=== PATIENT | male | born 1945 | race Caucasian/White ===

== ENCOUNTER 2016-11-13 20:31 | Inpatient (IN) | payer OTHER ==
--- NOTE | 2016-11-13 21:04 | PDOC ---
History of Present Illness - General History Source: Patient, Spouse, Primary Care Provider Exam Limitations: Other - History of Present Illness Initial Comments: 11/13/16 21:56 The patient is a 71-year-old male, with a significant past medical history of NIDDM, stents, hypertension, hyperlipidemia, and bladder stone removal, who was sent to the emergency department by his PCP, Dr. Reyes, due to increased forgetfulness for about a year. As per PCP, the patient is becoming more and more forgetful, is non-compliant with his diabetes medication, and thus she is concerned that he will not be able to readily take care of himself. As per , the patient had one episode of DKA about 3 months ago, and after being discharged has becoming increasingly forgetful. The PCP reports the patient lives at home with his , but the spends a portion of her day working. The patient reports s/p has bladder stone removal he had a catheter inserted. After catheter removal a week ago, the patient reports episodes of hematuria. The patient denies dysuria, frequency, and urgency. The patient denies nausea, vomiting, diarrhea, and constipation. The patient denies fever, chills, cough, headache, or dizziness. Allergies: Udlygrj-Vkz-CfN reductase inhibitor, lactose Past Surgical History: appendectomy, cholycystectomy, bladder stone removal Social History: Former smoker(quit 1995). Denies alcohol or drug use. PCP: Dr. Loni Reyes ([phone]) <Brenda Dyson - Last Filed: 11/13/16 23:58> <Elva Griffiths - Last Filed: 11/14/16 07:07> - General History Source: Patient <Han Miller - Last Filed: 11/19/16 19:48> - General Chief Complaint: Blood Transfusion Stated Complaint: DOCTOR REFFERED Time Seen by Provider: 11/13/16 21:03 Past History <Brenda Dyson - Last Filed: 11/13/16 23:58> <Elva Griffiths - Last Filed: 11/14/16 07:07> - Past Medical History Anemia: No Asthma: No Cancer: No Cardiac Disorders: Yes (atrial flutter) CVA: No COPD: No CHF: No Dementia: No Diabetes: Yes (niddm) GI Disorders: No Disorders: No HTN: Yes Hypercholesterolemia: Yes Liver Disease: No Seizures: No Thyroid Disease: No - Surgical History Abdominal Surgery: No Appendectomy: Yes Cardiac Surgery: Yes (2012) Cholecystectomy: (gallstones) Lung Surgery: No Neurologic Surgery: No Orthopedic Surgery: Yes - Psycho/Social/Smoking Cessation Hx Anxiety: No Suicidal Ideation: No Smoking Status: No Smoking History: Former smoker Have you smoked in the past 12 months: No Number of Cigarettes Smoked Daily: 4 If you are a former smoker, when did you quit?: 1995 Cigars Per Day: 1 Information on smoking cessation initiated: No 'Breaking Loose' booklet given: 11/01/16 Hx Alcohol Use: No Drug/Substance Use Hx: No Substance Use Type: None Hx Substance Use Treatment: No <Han Miller - Last Filed: 11/19/16 19:48> - Past Medical History Allergies/Adverse Reactions: Allergies Allergy/AdvReac Type Severity Reaction Status Date / Time Dcjpqri-Yfh-Fqj Reductase Allergy Unknown Verified 11/13/16 20:52 Inhibitor lactose AdvReac Verified 11/13/16 20:52 Home Medications: Ambulatory Orders Amlodipine Besylate [Norvasc -] 10 mg PO DAILY 12/20/15 Colesevelam HCl [Welchol] 625 mg PO TID 12/20/15 Tamsulosin HCl [Flomax -] 0.4 mg PO DAILY #10 capsule 06/01/16 Gemfibrozil [Lopid] 600 mg PO BID 10/14/16 Losartan Potassium [Cozaar -] 50 mg PO DAILY 10/14/16 Nitroglycerin [Nitrostat] 0.4 mg SL PRN PRN 10/14/16 Omeprazole 20 mg PO DAILY 10/14/16 Potassium Citrate [Potassium Citrate ER] 15 meq PO DAILY 10/14/16 Insulin (Levemir) [Levemir Vial] 14 units SQ ASDIR #0 10/24/16 Phytonadione [Mephyton] 5 mg PO DAILY #1 tablet 10/24/16 Insulin Sliding Scale [Novolog Vial Sliding Scale -] 1 vial SQ BIDAC units Isosorbide Mononitrate [Imdur -] 30 mg PO DAILY tab.sr.24h 11/01/16 Metoprolol Succinate [Toprol XL -] 50 mg PO DAILY #90 tab.sr.24h 11/01/16 Nitrofurantoin Macrocrystal [Macrodantin -] 50 mg PO Q6HPO #40 capsule 11/01/16 Ranolazine [Ranexa -] 500 mg PO BID tab 11/01/16 Review of Systems - Review of Systems Able to Perform ROS?: Yes Comments:: 11/13/16 21:57 CONSTITUTIONAL: Absent: fever, chills, diaphoresis, generalized weakness, malaise, loss of appetite HEENT: Absent: rhinorrhea, nasal congestion, throat pain, throat swelling, difficulty swallowing, mouth swelling, ear pain, eye pain, visual Changes CARDIOVASCULAR: Absent: chest pain, syncope, palpitations, irregular heart rate, lightheadedness , peripheral edema RESPIRATORY: Absent: cough, shortness of breath, dyspnea with exertion, orthopnea, wheezing, stridor, hemoptysis GASTROINTESTINAL: Absent: abdominal pain, abdominal distension, nausea, vomiting, diarrhea, constipation, melena, hematochezia GENITOURINARY: Present: hematuria Absent: dysuria, frequency, urgency, hesitancy, flank pain, genital pain MUSCULOSKELETAL: Absent: myalgia, arthralgia, joint swelling SKIN: Absent: rash, itching, pallor HEMATOLOGIC/IMMUNOLOGIC: Absent: easy bleeding, easy bruising, lymphadenopathy, frequent infections ENDOCRINE: Absent: unexplained weight gain, unexplained weight loss, heat intolerance, cold intolerance NEUROLOGIC: Absent: headache, focal weakness or paresthesias, dizziness, unsteady gait, seizure, mental status changes, bladder or bowel incontinence PSYCHIATRIC: Present: forgetfulness (early dementia) Absent: anxiety, depression, suicidal or homicidal ideation, hallucinations. <Brenda Dyson - Last Filed: 11/13/16 23:58> *Physical Exam - Vital Signs Last Vital Signs Temp Pulse Resp BP Pulse Ox 98.1 F 70 17 124/63 100 11/13/16 21:02 11/13/16 21:02 11/13/16 21:02 11/13/16 21:02 11/13/16 21:02 - Physical Exam Comments: 11/13/16 21:58 GENERAL: Well developed, well nourished. Awake and alert. No acute distress. HEENT: Normocephalic, atraumatic. PERRLA, EOMI. No conjunctival pallor. Sclera are non- icteric. Moist mucous membranes. Oropharynx is clear. NECK: Supple. Full ROM. No JVD. Carotid pulses 2+ and symmetric, without bruits. No thyromegaly. No lymphadenopathy. CARDIOVASCULAR: Regular rate and rhythm. No murmurs, rubs, or gallops. Distal pulses are 2+ and symmetric. PULMONARY: No evidence of respiratory distress. Lungs clear to auscultation bilaterally. No wheezing, rales or rhonchi. ABDOMINAL: Soft. Non-tender. Non-distended. No rebound or guarding. No organomegaly. Normoactive bowel sounds. MUSCULOSKELETAL Normal range of motion at all joints. No bony deformities or tenderness. No CVA tenderness. EXTREMITIES: No cyanosis. No clubbing. No edema. No calf tenderness. SKIN: Warm and dry. Normal capillary refill. No rashes. No jaundice. NEUROLOGICAL: Alert, awake, appropriate. Cranial nerves 2-12 intact. No deficits to light touch and temperature in face, upper extremities and lower extremities. No motor deficits in the in face, upper extremities and lower extremities. Normoreflexic in the upper and lower extremities. Normal speech. Toes are down- going bilaterally. Gait is normal without ataxia. PSYCHIATRIC: Cooperative. Good eye contact. Appropriate mood and affect. <Brenda Dyson - Last Filed: 11/13/16 23:58> - Vital Signs Last Vital Signs Temp Pulse Resp BP Pulse Ox 98.1 F 65 18 134/77 99 11/13/16 21:02 11/14/16 01:03 11/14/16 01:03 11/14/16 01:03 11/14/16 01:03 <Elva Griffiths - Last Filed: 11/14/16 07:07> - Vital Signs Last Vital Signs Temp Pulse Resp BP Pulse Ox 98.1 F 70 17 124/63 100 11/13/16 21:02 11/13/16 21:02 11/13/16 21:02 11/13/16 21:02 11/13/16 21:02 <Han Miller - Last Filed: 11/19/16 19:48> Heart Score/ECG Review - ECG Intrepretation Comment:: 11/14/16 07:07 EKG was reviewed by Dr. Miller at 7:05. Impression: Sinus bradycardia. ST & T wave abnormality, consider lateral ischemia. Vent. Rate: 58 bpm OK Interval: 148 ms QTc: 422 ms <Elva Griffiths - Last Filed: 11/14/16 07:07> ED Treatment Course - LABORATORY CBC & Chemistry Diagram: 11/13/16 21:59 11/13/16 21:59 - RADIOLOGY Radiograph Interpretation: 11/13/16 23:55 EXAM: CXR INTERPRETED BY: Dr. Gerber REVIEWED BY: Dr. Miller IMPRESSION: Suboptimal examination, without evidence of acute lung disease EXAM: Head CT INTERPRETED BY: Dr. Gerber REVIEWED BY: Dr. Miller IMPRESSION: Moderate atrophy and chronic microvascular ischemic changes. Bilateral periventricular old lacunar infarcts are present. Lucency/ encephalomalacia in the left cerebellum, inferiorly/posteriorly. Correlate clinically to determine further evaluation and follow-up. <Brenda Dyson - Last Filed: 11/13/16 23:58> - LABORATORY CBC & Chemistry Diagram: 11/14/16 06:20 11/14/16 06:20 - ADDITIONAL ORDERS Additional order review: Laboratory Results 11/13/16 11/13/16 11/13/16 21:59 21:59 21:59 INR Sodium 140 Potassium 4.0 Chloride 108 H Carbon Dioxide 23 Anion Gap 9 BUN 30 H D Creatinine 1.5 H D Creat Clearance w eGFR 46.00 Random Glucose 194 H Lactic Acid 1.623 Calcium 8.9 Total Bilirubin 0.2 AST 9 L ALT 13 Alkaline Phosphatase 125 H Creatine Kinase 49 Troponin I 0.12 H D Total Protein 7.0 Albumin 3.0 L Acetone, Qual Negative Blood Type Antibody Screen 11/13/16 11/13/16 21:59 21:59 INR 1.32 H Sodium Potassium Chloride Carbon Dioxide Anion Gap BUN Creatinine Creat Clearance w eGFR Random Glucose Lactic Acid Calcium Total Bilirubin AST ALT Alkaline Phosphatase Creatine Kinase Troponin I Total Protein Albumin Acetone, Qual Blood Type O POSITIVE Antibody Screen Negative 11/13/16 21:59 RBC 3.33 L MCV 88.6 MCHC 32.4 RDW 13.9 MPV 8.3 Neutrophils % 41.9 L D Lymphocytes % 38.5 D Monocytes % 8.4 Eosinophils % 10.6 H Basophils % 0.6 <Elva Griffiths - Last Filed: 11/14/16 07:07> - LABORATORY CBC & Chemistry Diagram: 11/18/16 06:20 11/19/16 15:00 <Han Miller - Last Filed: 11/19/16 19:48> Medical Decision Making - Medical Decision Making 11/13/16 21:32 First call placed to Dr. Reyes at 21:28, and case was discussed. <Brenda Dyson - Last Filed: 11/13/16 23:58> - Medical Decision Making 11/19/16 19:48 1DrPapi Miller: The scribe's documentation has been prepared under my direction and personally reviewed by me in its entirery. I confirm that the note above accurately reflects all work, treatment, procedures, and medical decision making performed by me. <Han Miller - Last Filed: 11/19/16 19:48> *DC/Admit/Observation/Transfer - Attestations Scribe Attestion: 11/13/16 21:33 Documentation prepared by Brenda Dyson, acting as forensic medical examiner for Han Miller DO. <Brenda Dyson - Last Filed: 11/13/16 23:58> <Elva Griffiths - Last Filed: 11/14/16 07:07> - Discharge Dispostion Admit: Yes <Han Miller - Last Filed: 11/19/16 19:48> Diagnosis at time of Disposition: Confused CAD (coronary artery disease) Qualifiers: Coronary Disease-Associated Artery/Lesion type: unspecified vessel or lesion type Hyperlipidemia Qualifiers: Hyperlipidemia type: other hyperlipidemia Qualified Code(s): E78.4 - Other hyperlipidemia - Referrals
[2016-11-13 22:28] LABS: BASOPHIL 0.6 % (0-2.0); EOSINOPHIL 10.6 % (0-4.5); MCH 28.7 pg (25.7-33.7); MCHC 32.4 g/dl (32.0-35.9); MEAN CELL VOLUME 88.6 fl (80-96); MEAN PLT VOLUME 8.3 fl (7.5-11.1); NEUTROPHILS 41.9 % (42.8-82.8); PLATELET COUNT 400 K/MM3 (134-434); RDW 13.9 % (11.9-15.9); WHITE BLOOD COUNT 8.3 K/mm3 (4.0-10.0)
[2016-11-13 23:00] LABS: INR 1.32 (0.82-1.09); PROTHROMBIN TIME (PATIENT) 14.6 SEC (9.98-11.88)
[2016-11-13 23:03] LABS: BILIRUBIN,TOTAL 0.2 mg/dL (0.2-1.0); CALCIUM 8.9 mg/dL (8.5-10.1); CREATININE 1.5 mg/dL (0.7-1.3)
[2016-11-13 23:06] LABS: TROPONIN I 0.12 ng/ml (0.00-0.05)
[2016-11-14] MEDS ORDERED: PATIENT'S OWN MEDICATION (NON-FORMULARY) (Colesevelam Hcl [Welchol] 625 MG) PO SCH (06:00)
[2016-11-14] MEDS ORDERED: INSULIN REGULAR HUMAN 100 UNITS/ML *VIAL ONE (06:31)
[2016-11-14 06:32] LABS: BASOPHIL 0.8 % (0-2.0); EOSINOPHIL 13.5 % (0-4.5); MCH 28.6 pg (25.7-33.7); MCHC 32.1 g/dl (32.0-35.9); MEAN CELL VOLUME 89.2 fl (80-96); MEAN PLT VOLUME 8.7 fl (7.5-11.1); NEUTROPHILS 34.3 % (42.8-82.8); PH,URINE 6.5 (5.0-8.0); PLATELET COUNT 429 K/MM3 (134-434); URINE APPEARANCE CLOUDY; URINE BILIRUBIN 2+ (NEGATIVE); URINE COLOR DK. RED; URINE GLUCOSE (UA) 3+ (NEGATIVE); URINE KETONE TRACE (NEGATIVE); URINE UROBILINOGEN 2.0 E.U/dl E.U./dl (0.2-1.0); WHITE BLOOD COUNT 8.4 K/mm3 (4.0-10.0)
[2016-11-14 06:56] LABS: ALBUMIN 3.1 g/dl (3.4-5.0); BILIRUBIN,TOTAL 0.2 mg/dL (0.2-1.0); CALCIUM 8.9 mg/dL (8.5-10.1); CREATININE 1.4 mg/dL (0.7-1.3)
[2016-11-14] MEDS ORDERED: INSULIN SLIDING SCALE (NOVOLOG) 1 VIAL SQ SCH (07:00)
[2016-11-14 07:02] LABS: TROPONIN I 0.13 ng/ml (0.00-0.05)
--- NOTE | 2016-11-14 08:52 | HP ---
Admitting History and Physical - Admission Chief Complaint: sent in by pcp History of Present Illness: The patient is a 71-year-old male, with a significant past medical history of NIDDM, stents, hypertension, hyperlipidemia, and bladder stone removal, who was sent to the emergency department by his PCP, Dr. Reyes, due to increased forgetfulness for about a year. As per PCP, the patient is becoming more and more forgetful, is non-compliant with his diabetes medication, and thus she is concerned that he will not be able to readily take care of himself. As per , the patient had one episode of DKA about 3 months ago, and after being discharged has becoming increasingly forgetful. The PCP reports the patient lives at home with his , but the spends a portion of her day working. The patient reports s/p has bladder stone removal he had a catheter inserted. After catheter removal a week ago, the patient reports episodes of hematuria. The patient denies dysuria, frequency, and urgency. The patient denies nausea, vomiting, diarrhea, and constipation. The patient denies fever, chills, cough, headache, or dizziness. Allergies: Yhnlvpi-Uda-DdS reductase inhibitor, lactose Past Surgical History: appendectomy, cholycystectomy, bladder stone removal Social History: Former smoker(quit 1995). Denies alcohol or drug use. PCP: Dr. Loni Reyes ([phone]) per patient he feels fine and says doctor sent him bc his blood count was low. History Source: Patient, Medical Record - Past Medical History Cardiovascular: Yes: AFIB (not on AC), CAD (with stent), HTN, Hyperlipdemia Pulmonary: Yes: Sleep Apnea Hepatobiliary: Yes: Cholelithiasis Renal/: Yes: BPH, Renal Calculi Endocrine: Yes: Diabetes Mellitus - Past Surgical History Past Surgical History: Yes: Appendectomy, Joint Replacement (Hip surgery for fracture right femur, ORIF right ankle, hip replacement) - Smoking History Smoking history: Former smoker Have you smoked in the past 12 months: No Aproximately how many cigarettes per day: 4 If you are a former smoker, when did you quit?: 1995 - Alcohol/Substance Use Hx Alcohol Use: No - Social History ADL: Independent Home Medications - Allergies Allergies/Adverse Reactions: Allergies Allergy/AdvReac Type Severity Reaction Status Date / Time Ooimhlo-Gkq-Jxp Reductase Allergy Unknown Verified 11/13/16 20:52 Inhibitor lactose AdvReac Verified 11/13/16 20:52 - Home Medications Home Medications: Ambulatory Orders Amlodipine Besylate [Norvasc -] 10 mg PO DAILY 12/20/15 Colesevelam HCl [Welchol] 625 mg PO TID 12/20/15 Tamsulosin HCl [Flomax -] 0.4 mg PO DAILY #10 capsule 06/01/16 Gemfibrozil [Lopid] 600 mg PO BID 10/14/16 Losartan Potassium [Cozaar -] 50 mg PO DAILY 10/14/16 Nitroglycerin [Nitrostat] 0.4 mg SL PRN PRN 10/14/16 Omeprazole 20 mg PO DAILY 10/14/16 Potassium Citrate [Potassium Citrate ER] 15 meq PO DAILY 10/14/16 Insulin (Levemir) [Levemir Vial] 14 units SQ ASDIR #0 10/24/16 Phytonadione [Mephyton] 5 mg PO DAILY #1 tablet 10/24/16 Insulin Sliding Scale [Novolog Vial Sliding Scale -] 1 vial SQ BIDAC units Isosorbide Mononitrate [Imdur -] 30 mg PO DAILY tab.sr.24h 11/01/16 Metoprolol Succinate [Toprol XL -] 50 mg PO DAILY #90 tab.sr.24h 11/01/16 Nitrofurantoin Macrocrystal [Macrodantin -] 50 mg PO Q6HPO #40 capsule 11/01/16 Ranolazine [Ranexa -] 500 mg PO BID tab 11/01/16 Family Disease History - Family Disease History Family Disease History: Diabetes: Grandparent Review of Systems - Review of Systems Constitutional: reports: No Symptoms Eyes: reports: No Symptoms HENT: reports: Nasal Congestion Neck: reports: No Symptoms Cardiovascular: reports: No Symptoms Respiratory: reports: Cough Gastrointestinal: reports: No Symptoms Physical Examination Vital Signs: Vital Signs Temperature 98.1 F 11/13/16 21:02 Pulse Rate 65 11/14/16 01:03 Respiratory Rate 18 11/14/16 01:03 Blood Pressure 134/77 11/14/16 01:03 O2 Sat by Pulse Oximetry (%) 99 11/14/16 01:03 Constitutional: Yes: Calm Neck: Yes: Trachea Midline Cardiovascular: Yes: Regular Rate and Rhythm, S1, S2 Respiratory: Yes: CTA Bilaterally Gastrointestinal: Yes: Normal Bowel Sounds, Soft Edema: No Neurological: Yes: Alert, Oriented Labs: CBC, BMP 11/14/16 06:20 11/14/16 06:20 Imaging - Results Chest X-ray: Report Reviewed Cat Scan: Report Reviewed Problem List - Problems (1) Hyperlipidemia Assessment/Plan: cotnie current meds Code(s): E78.5 - HYPERLIPIDEMIA, UNSPECIFIED Qualifiers: Hyperlipidemia type: other hyperlipidemia Qualified Code(s): E78.4 - Other hyperlipidemia (2) ARF (acute renal failure) Assessment/Plan: hydration encourage po fluid intake Code(s): N17.9 - ACUTE KIDNEY FAILURE, UNSPECIFIED Qualifiers: Acute renal failure type: unspecified Qualified Code(s): N17.9 - Acute kidney failure, unspecified (3) 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 Assessment/Plan: slididng scale V[facility] services need set up for help with Dm medication at home Code(s): E11.9 - TYPE 2 DIABETES MELLITUS WITHOUT COMPLICATIONS Qualifiers: 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 type: type 2 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 complication status: without complication 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 oysterman insulin use: without retirement use Qualified Code(s): E11.9 - Type 2 diabetes mellitus without complications (4) UTI (urinary tract infection) Assessment/Plan: nitrofurantoin Code(s): N39.0 - URINARY TRACT INFECTION, SITE NOT SPECIFIED (5) Forgetfulness Assessment/Plan: MRI neuro eval appreicated outpatient FU pedning MRI result Code(s): R68.89 - OTHER GENERAL SYMPTOMS AND SIGNS (6) CAD (coronary artery disease) Assessment/Plan: continue cardiac meds Code(s): I25.10 - ATHSCL HEART DISEASE OF [place] DEE-NI' CORONARY ARTERY W/O ANG PCTRS Qualifiers: Coronary Disease-Associated Artery/Lesion type: unspecified vessel or lesion type
[2016-11-14] MEDS: RANOLAZINE E.R. 500 MG TABLET (FP) PO SCH ×2 (09:31→22:35)
[2016-11-14] MEDS: PANTOPRAZOLE 20 MG TABLET (FP) PO SCH (09:31)
[2016-11-14] MEDS: METOPROLOL SUCCINATE 50 MG TAB.SR.24H (FP) PO SCH (09:31)
[2016-11-14] MEDS: LOSARTAN POTASSIUM 50 MG TABLET (FP) PO SCH (09:31)
[2016-11-14] MEDS: amLODIPine BESYLATE 10 MG TABLET (FP) PO SCH (09:31)
[2016-11-14] MEDS: TAMSULOSIN HCL 0.4 MG CAP.ER.24H (FP) PO SCH (09:31)
[2016-11-14] MEDS: ISOSORBIDE MONONITRATE 30 MG TAB.SR.24H (FP) PO SCH (09:31)
[2016-11-14 09:41] LABS: URINE BLOOD 3+ (NEGATIVE); URINE LEUK ESTERASE 2+ (NEGATIVE); URINE NITRITE POSITIVE (NEGATIVE); URINE PROTEIN 3+ (NEGATIVE)
[2016-11-14 09:43] LABS: URINE RBC >100 /hpf (0-3)
--- NOTE | 2016-11-14 10:54 | EKG ---
Test Reason : Blood Pressure : / mmHG Vent. Rate : 058 BPM Atrial Rate : 058 BPM P-R Int : 148 ms QRS Dur : 100 ms QT Int : 430 ms P-R-T Axes : 061 037 098 degrees QTc Int : 422 ms SINUS BRADYCARDIA ABNORMAL ECG T WAVE INVERSION NOW EVIDENT IN LATERAL LEADS Confirmed by MARIIA RICE MD ([id number]) on 11/14/2016 10:53:52 AM Referred By: Confirmed By:MARIIA RICE MD
--- NOTE | 2016-11-14 10:54 | CONSULT ---
Consult - text type - Consultation Consultation Note: Neurology The patient is a 71-year-old male, with a significant past medical history of NIDDM, stents, hypertension, hyperlipidemia, and bladder stone removal, who was sent to the emergency department by his PCP, Dr. Reyes, due to increased forgetfulness for about a year. As per notes, the patient is becoming more and more forgetful, is non-compliant with his diabetes medication, and thus concern he will not be able to readily take care of himself. As per , the patient had one episode of DKA about 3 months ago, and after being discharged has becoming increasingly forgetful. The PCP reports the patient lives at home with his , but the spends a portion of her day working. The patient reports s/p has bladder stone removal he had a catheter inserted. After catheter removal a week ago, the patient reports episodes of hematuria. The patient denies dysuria, frequency, and urgency. The patient denies nausea, vomiting, diarrhea, and constipation. The patient denies fever, chills, cough, headache, or dizziness. In speaking with the patient in ER, he believes the reports have been exaggerated and he feels he is managing to take care of himself. He was aware that is in the hospital and can tell me name of hospital. Past History - Past Medical History Anemia: No Asthma: No Cancer: No Cardiac Disorders: Yes (atrial flutter) CVA: No COPD: No CHF: No Dementia: No Diabetes: Yes (niddm) GI Disorders: No Disorders: No HTN: Yes Hypercholesterolemia: Yes Liver Disease: No Seizures: No Thyroid Disease: No - Surgical History Abdominal Surgery: No Appendectomy: Yes Cardiac Surgery: Yes (2012) Cholecystectomy: (gallstones) Lung Surgery: No Neurologic Surgery: No Orthopedic Surgery: Yes - Psycho/Social/Smoking Cessation Hx Anxiety: No Suicidal Ideation: No Smoking Status: No Smoking History: Former smoker Have you smoked in the past 12 months: No Number of Cigarettes Smoked Daily: 4 If you are a former smoker, when did you quit?: 1996 Cigars Per Day: 1 Information on smoking cessation initiated: No 'Breaking Loose' booklet given: 11/01/16 Hx Alcohol Use: No Drug/Substance Use Hx: No Substance Use Type: None Hx Substance Use Treatment: No - Past Medical History Allergies/Adverse Reactions: Allergies Allergy/AdvReac Type Severity Reaction Status Date / Time [id number] Reductase Allergy Unknown Verified 11/13/16 20:52 Inhibitor lactose AdvReac Verified 11/13/16 20:52 Home Medications: Ambulatory Orders Amlodipine Besylate [Norvasc -] 10 mg PO DAILY 12/20/15 Colesevelam HCl [Welchol] 625 mg PO TID 12/20/15 Tamsulosin HCl [Flomax -] 0.4 mg PO DAILY #10 capsule 06/01/16 Gemfibrozil [Lopid] 600 mg PO BID 10/14/16 Losartan Potassium [Cozaar -] 50 mg PO DAILY 10/14/16 Nitroglycerin [Nitrostat] 0.4 mg SL PRN PRN 10/14/16 Omeprazole 20 mg PO DAILY 10/14/16 Potassium Citrate [Potassium Citrate ER] 15 meq PO DAILY 10/14/16 Insulin (Levemir) [Levemir Vial] 14 units SQ ASDIR #0 10/24/16 Phytonadione [Mephyton] 5 mg PO DAILY #1 tablet 10/24/16 Insulin Sliding Scale [Novolog Vial Sliding Scale -] 1 vial SQ BIDAC units Isosorbide Mononitrate [Imdur -] 30 mg PO DAILY tab.sr.24h 11/01/16 Metoprolol Succinate [Toprol XL -] 50 mg PO DAILY #90 tab.sr.24h 11/01/16 Nitrofurantoin Macrocrystal [Macrodantin -] 50 mg PO Q6HPO #40 capsule 11/01/16 Ranolazine [Ranexa -] 500 mg PO BID tab 11/01/16 Review of Systems CONSTITUTIONAL: Absent: fever, chills, diaphoresis, generalized weakness, malaise, loss of appetite HEENT: Absent: rhinorrhea, nasal congestion, throat pain, throat swelling, difficulty swallowing, mouth swelling, ear pain, eye pain, visual Changes CARDIOVASCULAR: Absent: chest pain, syncope, palpitations, irregular heart rate, lightheadedness , peripheral edema RESPIRATORY: Absent: cough, shortness of breath, dyspnea with exertion, orthopnea, wheezing, stridor, hemoptysis GASTROINTESTINAL: Absent: abdominal pain, abdominal distension, nausea, vomiting, diarrhea, constipation, melena, hematochezia GENITOURINARY: Present: hematuria Absent: dysuria, frequency, urgency, hesitancy, flank pain, genital pain MUSCULOSKELETAL: Absent: myalgia, arthralgia, joint swelling SKIN: Absent: rash, itching, pallor HEMATOLOGIC/IMMUNOLOGIC: Absent: easy bleeding, easy bruising, lymphadenopathy, frequent infections ENDOCRINE: Absent: unexplained weight gain, unexplained weight loss, heat intolerance, cold intolerance NEUROLOGIC: Absent: headache, focal weakness or paresthesias, dizziness, unsteady gait, seizure, mental status changes, bladder or bowel incontinence PSYCHIATRIC: Present: forgetfulness (early dementia) Absent: anxiety, depression, suicidal or homicidal ideation, hallucinations. Last Vital Signs Temp Pulse Resp BP Pulse Ox 98.1 F 70 17 124/63 100 11/13/16 21:02 11/13/16 21:02 11/13/16 21:02 11/13/16 21:02 11/13/16 21:02 GENERAL: Well developed, well nourished. Awake and alert. No acute distress. HEENT: Normocephalic, atraumatic. PERRLA, EOMI. No conjunctival pallor. Sclera are non- icteric. Moist mucous membranes. Oropharynx is clear. NECK: Supple. Full ROM. No JVD. Carotid pulses 2+ and symmetric, without bruits. No thyromegaly. No lymphadenopathy. CARDIOVASCULAR: Regular rate and rhythm. No murmurs, rubs, or gallops. Distal pulses are 2+ and symmetric. PULMONARY: No evidence of respiratory distress. Lungs clear to auscultation bilaterally. No wheezing, rales or rhonchi. ABDOMINAL: Soft. Non-tender. Non-distended. No rebound or guarding. No organomegaly. Normoactive bowel sounds. MUSCULOSKELETAL Normal range of motion at all joints. No bony deformities or tenderness. No CVA tenderness. EXTREMITIES: No cyanosis. No clubbing. No edema. No calf tenderness. SKIN: Warm and dry. Normal capillary refill. No rashes. No jaundice. NEUROLOGICAL: Alert, awake, appropriate. Cranial nerves 2-12 intact. No deficits to light touch and temperature in face, upper extremities and lower extremities. No motor deficits in the in face, upper extremities and lower extremities. Normoreflexic in the upper and lower extremities. Normal speech. Toes are down- going bilaterally. Gait is normal without ataxia. PSYCHIATRIC: Cooperative. Good eye contact. Appropriate mood and affect. CBCD WBC 8.4 K/mm3 (4.0-10.0) 11/14/16 06:20 RBC 3.46 M/mm3 (4.00-5.60) L 11/14/16 06:20 Hgb 9.9 GM/dL (11.7-16.9) L 11/14/16 06:20 Hct 30.9 % (35.4-49) L 11/14/16 06:20 MCV 89.2 fl (80-96) 11/14/16 06:20 MCHC 32.1 g/dl (32.0-35.9) 11/14/16 06:20 RDW 14.0 % (11.9-15.9) 11/14/16 06:20 Plt Count 429 K/MM3 (134-434) 11/14/16 06:20 MPV 8.7 fl (7.5-11.1) 11/14/16 06:20 CMP Sodium 138 mmol/L (136-145) 11/14/16 06:20 Potassium 3.9 mmol/L (3.5-5.1) 11/14/16 06:20 Chloride 105 mmol/L (98-107) 11/14/16 06:20 Carbon Dioxide 22 mmol/L (21-32) 11/14/16 06:20 Anion Gap 11 (8-16) 11/14/16 06:20 BUN 27 mg/dL (7-18) H 11/14/16 06:20 Creatinine 1.4 mg/dL (0.7-1.3) H 11/14/16 06:20 Creat Clearance w eGFR 49.82 (>60) 11/14/16 06:20 Calcium 8.9 mg/dL (8.5-10.1) 11/14/16 06:20 Total Bilirubin 0.2 mg/dL (0.2-1.0) 11/14/16 06:20 AST 8 U/L (15-37) L 11/14/16 06:20 ALT 11 U/L (12-78) L 11/14/16 06:20 Alkaline Phosphatase 120 U/L (45-117) H 11/14/16 06:20 Total Protein 7.0 g/dl (6.4-8.2) 11/14/16 06:20 Albumin 3.1 g/dl (3.4-5.0) L 11/14/16 06:20 - RADIOLOGY EXAM: CXR INTERPRETED BY: Dr. Gerber REVIEWED BY: Dr. Miller IMPRESSION: Suboptimal examination, without evidence of acute lung disease EXAM: Head CT INTERPRETED BY: Dr. Gerber REVIEWED BY: Dr. Miller IMPRESSION: Moderate atrophy and chronic microvascular ischemic changes. Bilateral periventricular old lacunar infarcts are present. Lucency/ encephalomalacia in the left cerebellum, inferiorly/posteriorly. Correlate clinically to determine further evaluation and follow-up. Plan: 71-year-old male, with a significant past medical history of NIDDM, stents, hypertension, hyperlipidemia, and bladder stone removal, who was sent to the emergency department by his PCP, Dr. Reyes, due to increased forgetfulness for about a year. He believes the reports have been exaggerated and he feels he is managing to take care of himself. He was aware that is in the hospital and can tell me name of hospital. Ct head without acute changes Check B12, Folate, RPR MRI brain ordered for further evaluation There is outpatient memory evaluation I would like him to complete in office which can quantify memory, executive function, and attention Would not start medication at this time but depending on formal memory results, I would consider memory aid Blood pressure control, continue Losartan, Amlodipine, Metoprolol Goal bp <140/90 chronically Continue Isulin, goal HgA1C < 6.0 Social work consult for possible home services if needed ([facility]NS, home health aid?) Fall precautions
[2016-11-14] MEDS ORDERED: INSULIN (NOVOLOG) ASPART 100 UNITS/ML 10ML VIAL ONE ×3 (12:51→22:34)
[2016-11-14 12:54] LABS: TROPONIN I 0.13 ng/ml (0.00-0.05)
[2016-11-14] MEDS: INSULIN SLIDING SCALE (NOVOLOG) 1 VIAL SQ SCH ×3 (13:00→22:35)
[2016-11-14] MEDS ORDERED: SODIUM CHLORIDE 1,000 ML IV SCH (13:45)
[2016-11-14 14:27] VITALS: BMI 30.2
--- NOTE | 2016-11-14 14:41 | CONSULT ---
Consult - text type - Consultation Consultation Note: Renal Consult for Acute on Chronic Renal insuffiency and hematuria This is a 71 year old Gentleman with PMhx of CAD s/p recent NSTEMI, DM Type 2, Hypertension, Hyperlipidemia, Nephrolithiasis (uric acid stones), BPH presents with complaints of hematuria and lower abd pain + increasing forgetfullness and found to have Cr of 1.4. Pt s/p recent open cystoscopy for bladder stone extraction. Pt is followed by Dr. Winters. Pt reports continues hematuria since the procedure. He had an obstructed coughlin that required admission a few weeks ago. No aspirin or A/c use. No NSAID use. No contast exposure. Pt reports good urine output. No flank pain. No fever or chills. No sob or chest pain. No N /V. + diarrhea (watery 3x daily). PMhx: as above Allergies: NKDA Family hx: NC Social Hx: No T/A/D ROS: as per HPI Home Meds: Medication Instructions Recorded Amlodipine Besylate [Norvasc -] 10 mg PO DAILY 12/20/15 Colesevelam HCl [Welchol] 625 mg PO TID 12/20/15 Tamsulosin HCl [Flomax -] 0.4 mg PO DAILY #10 capsule 06/01/16 Gemfibrozil [Lopid] 600 mg PO BID 10/14/16 Losartan Potassium [Cozaar -] 50 mg PO DAILY 10/14/16 Nitroglycerin [Nitrostat] 0.4 mg SL PRN PRN 10/14/16 Omeprazole 20 mg PO DAILY 10/14/16 Potassium Citrate [Potassium 15 meq PO DAILY 10/14/16 Citrate ER] Insulin (Levemir) [Levemir Vial] 14 units SQ ASDIR #0 10/24/16 Phytonadione [Mephyton] 5 mg PO DAILY #1 tablet 10/24/16 Insulin Sliding Scale [Novolog 1 vial SQ BIDAC units 11/01/16 Vial Sliding Scale -] Isosorbide Mononitrate [Imdur -] 30 mg PO DAILY tab.sr.24h 11/01/16 Metoprolol Succinate [Toprol XL -] 50 mg PO DAILY #90 tab.sr.24h 11/01/16 Nitrofurantoin Macrocrystal 50 mg PO Q6HPO #40 capsule 11/01/16 [Macrodantin -] Ranolazine [Ranexa -] 500 mg PO BID tab 11/01/16 Vital Signs Temperature 97.4 F L 11/14/16 14:12 Pulse Rate 64 11/14/16 14:12 Respiratory Rate 16 11/14/16 14:12 Blood Pressure 116/53 11/14/16 14:12 O2 Sat by Pulse Oximetry (%) 97 11/14/16 14:12 Gen: NAD, awake and alert HEENT: NC/AT, MMM, No JVD CVS: RRR, No M/R Lungs: CTA, no rales or wheeze Abd: soft NT/ND No rebound or guarding. well healed scan seen on bladder. NO bladder distension Ext: No edema, clubbing or cyanosis Neuro: AAOx3, no focal defects CBC, BMP 11/14/16 06:20 11/14/16 06:20 Laboratory Tests 11/14/16 06:20 Random Glucose 224 H Calcium 8.9 Albumin 3.1 L Current Medications Amlodipine Besylate (Norvasc -) 10 mg PO DAILY [facility] Last Admin: 11/14/16 09:31 Dose: 10 mg Gemfibrozil (Lopid -) 600 mg PO BID@0700,1630 [facility] Sodium Chloride (Normal Saline -) 1,000 mls @ 75 mls/hr IV ASDIR [facility] Stop: 11/15/16 01:44 Influenza Virus Vaccine (Fluvirin) 45 mcg IM .ONCE ONE Stop: 11/14/16 14:27 Insulin Aspart (Novolog Vial Sliding Scale -) 1 vial SQ ACHS [facility] PRN Reason: Protocol Last Admin: 11/14/16 13:00 Dose: 4 units Isosorbide Mononitrate (Imdur -) 30 mg PO DAILY [facility] Last Admin: 11/14/16 09:31 Dose: 30 mg Losartan Potassium (Cozaar -) 50 mg PO DAILY [facility] Last Admin: 11/14/16 09:31 Dose: 50 mg Metoprolol Succinate (Toprol Xl -) 50 mg PO DAILY [facility] Last Admin: 11/14/16 09:31 Dose: 50 mg Nitrofurantoin Macrocrystals (Macrodantin -) 50 mg PO Q6HPO [facility] Nitroglycerin (Nitrostat -) 0.4 mg SL PRN PRN PRN Reason: FOR CHEST PAIN Non-Formulary Medication (Colesevelam Hcl [Welchol]) 625 mg PO TID [facility] Last Admin: 11/14/16 06:16 Dose: Not Given Pantoprazole Sodium (Protonix -) 20 mg PO DAILY [facility] Last Admin: 11/14/16 09:31 Dose: 20 mg Pneumococcal 13-Valent Conj Vacc (Prevnar 13 Syringe -) 0.5 ml IM .ONCE ONE Stop: 11/14/16 14:27 Ranolazine (Ranexa -) 500 mg PO BID [facility] Last Admin: 11/14/16 09:31 Dose: 500 mg Tamsulosin HCl (Flomax -) 0.4 mg PO DAILY@0830 [facility] Last Admin: 11/14/16 09:31 Dose: 0.4 mg A/P 71 year old Gentleman with PMhx of CAD s/p recent NSTEMI, DM Type 2, Hypertension, Hyperlipidemia, Nephrolithiasis (uric acid stones), BPH presents with complaints of hematuria and lower abd pain + increasing forgetfullness and found to have Cr of 1.4. 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
[2016-11-14] MEDS ORDERED: INFLUENZA VACCINE 45 MCG/0.5 ML (MDV 16-17) IM ONE (16:00)
[2016-11-14] MEDS: GEMFIBROZIL 600 MG TABLET (FP) PO SCH (17:03)
--- NOTE | 2016-11-14 17:12 | CONSULT ---
Consult Consult Specialty:: Cardiology Reason for Consultation:: Troponin elevation - History of Present Illness Chief Complaint: Progressive dementia History of Present Illness: 70 y/o man with multiple medical problems including CAD s/p stent, angina pectoris, DM (on insulin), HTN, cholelithiasis, nephrolithiasis, afib, s/p cysto /open cystotomy for BPH and bladder stone presents with continued hematuria, increasing forgetfulness, PMD concerned of inability to care for himself, he experienced obstructed coughlin requiring admission few weeks ago, denies chest pain, dyspnea, near or true syncope, palpitations, orthopnea, dysuria, frequency , urgency, PND or LE edema. - History Source History Provided By: Patient, Medical Record Limitations to Obtaining History: Dementia - Past Medical History Cardio/Vascular: Yes: AFIB (not on AC), CAD (with stent), HTN, Hyperlipdemia Pulmonary: Yes: Sleep Apnea Hepatobiliary: Yes: Cholelithiasis Renal/: Yes: BPH, Renal Calculi Endocrine: Yes: Diabetes Mellitus - Past Surgical History Past Surgical History: Yes: Appendectomy, Joint Replacement (Hip surgery for fracture right femur, ORIF right ankle, hip replacement) - Alcohol/Substance Use Hx Alcohol Use: No - Smoking History Smoking history: Former smoker Have you smoked in the past 12 months: No Aproximately how many cigarettes per day: 4 If you are a former smoker, when did you quit?: 1995 - Social History Usual Living Arrangement: With Spouse ADL: Independent Home Medications - Allergies Allergies/Adverse Reactions: Allergies Allergy/AdvReac Type Severity Reaction Status Date / Time Pxfufwr-Dev-[id number] Reductase Allergy Unknown Verified 11/13/16 20:52 Inhibitor lactose AdvReac Verified 11/13/16 20:52 - Home Medications Home Medications: Ambulatory Orders Amlodipine Besylate [Norvasc -] 10 mg PO DAILY 12/20/15 Colesevelam HCl [Welchol] 625 mg PO TID 12/20/15 Tamsulosin HCl [Flomax -] 0.4 mg PO DAILY #10 capsule 06/01/16 Gemfibrozil [Lopid] 600 mg PO BID 10/14/16 Losartan Potassium [Cozaar -] 50 mg PO DAILY 10/14/16 Nitroglycerin [Nitrostat] 0.4 mg SL PRN PRN 10/14/16 Omeprazole 20 mg PO DAILY 10/14/16 Potassium Citrate [Potassium Citrate ER] 15 meq PO DAILY 10/14/16 Insulin (Levemir) [Levemir Vial] 14 units SQ ASDIR #0 10/24/16 Phytonadione [Mephyton] 5 mg PO DAILY #1 tablet 10/24/16 Insulin Sliding Scale [Novolog Vial Sliding Scale -] 1 vial SQ BIDAC units Isosorbide Mononitrate [Imdur -] 30 mg PO DAILY tab.sr.24h 11/01/16 Metoprolol Succinate [Toprol XL -] 50 mg PO DAILY #90 tab.sr.24h 11/01/16 Nitrofurantoin Macrocrystal [Macrodantin -] 50 mg PO Q6HPO #40 capsule 11/01/16 Ranolazine [Ranexa -] 500 mg PO BID tab 11/01/16 Family Disease History - Family Disease History Family Disease History: Diabetes: Grandparent Review of Systems - Review of Systems Genitourinary: reports: Hematuria Neurological: reports: Confusion Vital Signs: Vital Signs Temperature 97.4 F L 11/14/16 14:12 Pulse Rate 64 11/14/16 14:12 Respiratory Rate 16 11/14/16 14:12 Blood Pressure 116/53 11/14/16 14:12 O2 Sat by Pulse Oximetry (%) 97 11/14/16 14:12 Constitutional: Yes: No Distress, Calm Neck: Yes: Supple Respiratory: Yes: Regular, Diminished Gastrointestinal: Yes: Normal Bowel Sounds, Soft, Abdomen, Obese Cardiovascular: Yes: Regular Rate and Rhythm JVD: No Carotid Bruit: No Heart Sounds: Yes: S1, S2 Edema: No - Other Data Labs, Other Data: CBC, BMP 11/14/16 06:20 11/14/16 06:20 INR, PTT INR 1.32 (0.82-1.09) H 11/13/16 21:59 Troponin, BNP 11/14/16 11/14/16 06:20 12:00 Troponin I 0.13 H 0.13 H Troponin, BNP 11/14/16 11/14/16 06:20 12:00 Troponin I 0.13 H 0.13 H SB @ 58 ST-T changes Imaging - Results Chest X-ray: Report Reviewed (NAD) Cat Scan: Report Reviewed (Left inferior cerebellar old stroke) Problem List - Problems (1) CAD (coronary artery disease) Code(s): I25.10 - ATHSCL HEART DISEASE OF [place] CORONARY ARTERY W/O ANG PCTRS Qualifiers: Coronary Disease-Associated Artery/Lesion type: unspecified vessel or lesion type (2) Confused Code(s): R41.0 - DISORIENTATION, UNSPECIFIED (3) Forgetfulness Code(s): R68.89 - OTHER GENERAL SYMPTOMS AND SIGNS (4) ARF (acute renal failure) Code(s): N17.9 - ACUTE KIDNEY FAILURE, UNSPECIFIED Qualifiers: Acute renal failure type: unspecified Qualified Code(s): N17.9 - Acute kidney failure, unspecified (5) Bladder stones Code(s): N21.0 - CALCULUS IN BLADDER (6) Demand ischemia Code(s): I24.8 - OTHER FORMS OF ACUTE ISCHEMIC HEART DISEASE (7) 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 Code(s): E11.9 - TYPE 2 DIABETES MELLITUS WITHOUT COMPLICATIONS Qualifiers: 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 type: type 2 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 complication status: without complication 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 extermination inspector insulin use: without chcf use Qualified Code(s): E11.9 - Type 2 diabetes mellitus without complications (8) HTN (hypertension) Code(s): I10 - ESSENTIAL (PRIMARY) HYPERTENSION Qualifiers: Hypertension type: essential hypertension Qualified Code(s): I10 - Essential (primary) hypertension (9) Hematuria Code(s): R31.9 - HEMATURIA, UNSPECIFIED (10) History of cardiac radiofrequency ablation (RFA) Code(s): Z98.89 - OTHER SPECIFIED POSTPROCEDURAL STATES * DO NOT USE * (11) Hypercholesteremia Code(s): E78.0 - PURE HYPERCHOLESTEROLEMIA * DO NOT USE * (12) Obstructive sleep apnea of adult Code(s): G47.33 - OBSTRUCTIVE SLEEP APNEA (ADULT) (PEDIATRIC) (13) Paroxysmal a-fib Code(s): I48.0 - PAROXYSMAL ATRIAL FIBRILLATION (14) S/P coronary artery stent placement Code(s): Z95.5 - PRESENCE OF CORONARY ANGIOPLASTY IMPLANT AND GRAFT Assessment/Plan 1.Increased forgetfulness 2. Hematuria with urinary retention post coughlin replacement, post open cystotomy for stone removal 3. CAD post multi-vessel PCI stent - demand ischemia with trops downtrending from previous visit 4. Diastolic LV dysfunction with chronic class I NYHA classification LV failure 5. Paroxysmal atrial fibrillation previous history of RFA, [id number] score of 5 6. HTN 7. DM 8. Hyperlipidemia 9. History of KATJA 10. Acute on CKD 11. Anemia 12. H/o old cerebellar stroke PLAN: 1. Neuro eval including brain MRI ongoing 2. Continue Toprol XL 50 qd, Lopid 600 bid, Imdur 30 qd and Ranexa 500 bid 2. Continue Amlodipine 10 qd and Losartan 50 qd 3. Cardiac enzymes trending down 4. Ideally needs anticoagulation in view of PAF and [id number] score of 5 and was previously on Eliquis, but held now due to hematuria. Unless it is absolutely contraindicated perspective, would consider resuming anticoagulation pending resolution of hematuria. 5. Thank you for consultative opportunity
--- NOTE | 2016-11-14 17:14 | PN ---
Progress Note (short form) - Note Progress Note: asked to see pt for elevate troponin I. However, pt has been seen multiple times by Dr Anthony's group, the last times being on 10/27/16. I texted Dr Gomez and Dr Arsalan Anthony who will see the pt. Thank you!
[2016-11-14] MEDS ORDERED: PNEUMOC 13-VAL CONJ-DIP CRM/PF 0.5 ML DISP.SYRIN IM ONE (17:30)
[2016-11-14 17:54] LABS: URINE APPEARANCE CLOUDY; URINE BILIRUBIN NEGATIVE (NEGATIVE); URINE COLOR YELLOW; URINE GLUCOSE (UA) 3+ (NEGATIVE); URINE KETONE NEGATIVE (NEGATIVE); URINE NITRITE NEGATIVE (NEGATIVE); URINE UROBILINOGEN NEGATIVE E.U./dl (0.2-1.0)
[2016-11-14] MEDS: NITROFURANTOIN MACROCRYSTAL 50 MG CAPSULE (FP) PO SCH (17:55)
[2016-11-14] MEDS ORDERED: PT OWN MED DRAWER 7, Y5N ONE (18:03)
[2016-11-14] MEDS ORDERED: BENZOCAINE/MENTH/CETYLPYRD CL 1 EACH LOZENGE MM PRN (18:07)
[2016-11-14 18:08] LABS: URINE BLOOD 3+ (NEGATIVE); URINE LEUK ESTERASE 3+ (NEGATIVE); URINE PROTEIN 2+ (NEGATIVE)
[2016-11-14 20:49] LABS: URINE BACTERIA RARE /hpf (NONE SEEN); URINE MUCUS RARE; URINE RBC 355 /hpf (0-3); URINE WBC 604 /hpf (3-5)
[2016-11-15] MEDS: NITROFURANTOIN MACROCRYSTAL 50 MG CAPSULE (FP) PO SCH ×4 (00:40→17:06)
[2016-11-15] MEDS ORDERED: PANTOPRAZOLE SODIUM 40 MG in SODIUM CHLORIDE 100 ML IVPB ONE (06:07)
--- NOTE | 2016-11-15 06:08 | HOSP ---
Subjective - Review of Symptoms Cardiovascular: Yes: Palpitations, Other (chest pressure). No: Chest Pain, Orthopnea, Paroxysmal Noc. Dyspnea, Light Headedness Physical Examination Vital Signs: Vital Signs Temperature 97.7 F 11/15/16 02:00 Pulse Rate 79 11/15/16 02:00 Respiratory Rate 20 11/15/16 02:00 Blood Pressure 124/64 11/15/16 02:00 O2 Sat by Pulse Oximetry (%) 97 11/15/16 00:00 Labs: CBC, BMP 11/14/16 06:20 11/14/16 06:20 Hospitalist Encounter Assessment: Was informed by the nurse that patient complaints of chest pressure since half an hour. Immediately went to see the patient. He states that he was in the middle of sleep, had to move his bowel. Patient woke up, went to the bathroom and pain started. It is burning in nature, located in the central chest area, not radiating to arms or neck , not associated with nausea or vomiting, not associated with respiration. Has had increased in troponins 0.13 -----> 0.13 but asymptomatic. Now he has chest pain. Vitals: 159/92 mmHg, 91bmp, 20RR, 94% on RA On Examination Chest-lungs B/L clear, no rales or wheeze CVS- Tachycardic, S1, S2, maybe systolic murmur + Stat Troponins I ordered, Stat EKG ordered, IV Pantoprazole 40mg given Stat, 0.4mg tablet of Sublingual nitrate given (as per PRN order). Results awaiting. Patient says he feels better now. Will discuss with Dr. Leigh. Visit type - Emergency Visit Emergency Visit: Yes ED Registration Date: 11/14/16 Care time: The patient presented to the Emergency Department on the above date and was hospitalized for further evaluation of their emergent condition. - New Patient This patient is new to me today: Yes Date on this admission: 11/15/16 - Critical Care Critical Care patient: No
[2016-11-15] MEDS: NITROGLYCERIN SUBLINGUAL 1/150 0.4 MG TAB SL PRN (06:11)
[2016-11-15] MEDS ORDERED: INSULIN (NOVOLOG) ASPART 100 UNITS/ML 10ML VIAL ONE ×3 (06:28→21:21)
[2016-11-15] MEDS: INSULIN SLIDING SCALE (NOVOLOG) 1 VIAL SQ SCH ×4 (06:29→21:24)
[2016-11-15] MEDS: GEMFIBROZIL 600 MG TABLET (FP) PO SCH ×2 (06:29→16:31)
[2016-11-15] MEDS ORDERED: PANTOPRAZOLE SODIUM 40 MG/100 ML PRE-DOCKED IVPB ONE (06:30)
[2016-11-15 08:51] LABS: BASOPHIL 0.3 % (0-2.0); EOSINOPHIL 3.3 % (0-4.5); MCH 29.7 pg (25.7-33.7); MCHC 33.6 g/dl (32.0-35.9); MEAN CELL VOLUME 88.5 fl (80-96); MEAN PLT VOLUME 8.8 fl (7.5-11.1); NEUTROPHILS 87.7 % (42.8-82.8); PLATELET COUNT 396 K/MM3 (134-434); RDW 13.8 % (11.9-15.9)
[2016-11-15] MEDS: LOSARTAN POTASSIUM 50 MG TABLET (FP) PO SCH (09:18)
[2016-11-15] MEDS: ISOSORBIDE MONONITRATE 30 MG TAB.SR.24H (FP) PO SCH (09:19)
[2016-11-15] MEDS: TAMSULOSIN HCL 0.4 MG CAP.ER.24H (FP) PO SCH (09:19)
[2016-11-15] MEDS: RANOLAZINE E.R. 500 MG TABLET (FP) PO SCH ×2 (09:19→21:23)
[2016-11-15] MEDS: amLODIPine BESYLATE 10 MG TABLET (FP) PO SCH (09:19)
[2016-11-15] MEDS: METOPROLOL SUCCINATE 50 MG TAB.SR.24H (FP) PO SCH ×3 (09:19→21:23)
[2016-11-15] MEDS: PANTOPRAZOLE 20 MG TABLET (FP) PO SCH (09:19)
--- NOTE | 2016-11-15 09:54 | PN ---
Progress Note, Physician - Current Medication List Current Medications: Active Medications Amlodipine Besylate (Norvasc -) 10 mg PO DAILY [facility] Last Admin: 11/15/16 09:19 Dose: 10 mg Benzocaine/Menthol (Cepacol Lozenge -) 1 each MM PRN PRN PRN Reason: SORE THROAT Gemfibrozil (Lopid -) 600 mg PO BID@0700,1630 [facility] Last Admin: 11/15/16 06:29 Dose: 600 mg Insulin Aspart (Novolog Vial Sliding Scale -) 1 vial SQ ACHS [facility] PRN Reason: Protocol Last Admin: 11/15/16 06:29 Dose: 4 units Isosorbide Mononitrate (Imdur -) 30 mg PO DAILY [facility] Last Admin: 11/15/16 09:19 Dose: 30 mg Losartan Potassium (Cozaar -) 50 mg PO DAILY [facility] Last Admin: 11/15/16 09:18 Dose: 50 mg Nitrofurantoin Macrocrystals (Macrodantin -) 50 mg PO Q6HPO [facility] Last Admin: 11/15/16 06:15 Dose: 50 mg Nitroglycerin (Nitrostat -) 0.4 mg SL PRN PRN PRN Reason: FOR CHEST PAIN Last Admin: 11/15/16 06:11 Dose: 0.4 mg Non-Formulary Medication (Colesevelam Hcl [Welchol]) 625 mg PO TID [facility] Last Admin: 11/14/16 06:16 Dose: Not Given Pantoprazole Sodium (Protonix -) 20 mg PO DAILY [facility] Last Admin: 11/15/16 09:19 Dose: Not Given Ranolazine (Ranexa -) 500 mg PO BID [facility] Last Admin: 11/15/16 09:19 Dose: 500 mg Tamsulosin HCl (Flomax -) 0.4 mg PO DAILY@0830 [facility] Last Admin: 11/15/16 09:19 Dose: 0.4 mg - Objective Vital Signs: Vital Signs Temperature 98.2 F 11/15/16 08:00 Pulse Rate 90 11/15/16 08:00 Respiratory Rate 18 11/15/16 08:00 Blood Pressure 155/77 11/15/16 08:00 O2 Sat by Pulse Oximetry (%) 96 11/15/16 08:53 Labs: CBC, BMP 11/15/16 07:25 11/15/16 07:25 INR, PTT INR 1.32 (0.82-1.09) H 11/13/16 21:59 Problem List - Problems (1) Chest pain Assessment/Plan: FOLLOW CE AC WILL D/W CARDIO TELE Code(s): R07.9 - CHEST PAIN, UNSPECIFIED Qualifiers: Chest pain type: unspecified Qualified Code(s): R07.9 - Chest pain, unspecified (2) CAD (coronary artery disease) Assessment/Plan: SAME MEDS ABOVE Code(s): I25.10 - ATHSCL HEART DISEASE OF [place] CORONARY ARTERY W/O ANG PCTRS Qualifiers: Coronary Disease-Associated Artery/Lesion type: unspecified vessel or lesion type (3) Hyperlipidemia Code(s): E78.5 - HYPERLIPIDEMIA, UNSPECIFIED Qualifiers: Hyperlipidemia type: other hyperlipidemia Qualified Code(s): E78.4 - Other hyperlipidemia (4) UTI (urinary tract infection) Assessment/Plan: ROCEPHIN ID UROLOGY Code(s): N39.0 - URINARY TRACT INFECTION, SITE NOT SPECIFIED Qualifiers: Urinary tract infection type: acute cystitis (5) 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 Assessment/Plan: BGM Code(s): E11.9 - TYPE 2 DIABETES MELLITUS WITHOUT COMPLICATIONS Qualifiers: 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 type: type 2 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 complication status: without complication 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 extermination supervisor insulin use: without extermination supervisor use Qualified Code(s): E11.9 - Type 2 diabetes mellitus without complications (6) Hematuria Assessment/Plan: UROLOGY Code(s): R31.9 - HEMATURIA, UNSPECIFIED (7) Afib Assessment/Plan: AC--RESUME-- Code(s): I48.91 - UNSPECIFIED ATRIAL FIBRILLATION Qualifiers: Atrial fibrillation type: paroxysmal Qualified Code(s): I48.0 - Paroxysmal atrial fibrillation Assessment/Plan Forgetfulness Assessment/Plan: MRI neuro eval appreicated outpatient FU pedning MRI result Code(s): R68.89 - OTHER GENERAL SYMPTOMS AND SIGNS
[2016-11-15 09:57] LABS: ALBUMIN 3.1 g/dl (3.4-5.0); BILIRUBIN,TOTAL 0.4 mg/dL (0.2-1.0); CALCIUM 8.9 mg/dL (8.5-10.1); CREATININE 1.3 mg/dL (0.7-1.3); MAGNESIUM 1.2 mg/dL (1.8-2.4); PHOSPHOROUS 2.4 mg/dL (2.5-4.9); TOT PROT 6.9 g/dl (6.4-8.2)
[2016-11-15 11:20] LABS: TROPONIN I 0.14 ng/ml (0.00-0.05)
--- NOTE | 2016-11-15 11:24 | PN ---
Progress Note (short form) - Note Progress Note: Neurology The patient is a 71-year-old male, with a significant past medical history of NIDDM, stents, hypertension, hyperlipidemia, and bladder stone removal, who was sent to the emergency department by his PCP, Dr. Reyes, due to increased forgetfulness for about a year. As per notes, the patient is becoming more and more forgetful, is non-compliant with his diabetes medication, and thus concern he will not be able to readily take care of himself. As per , the patient had one episode of DKA about 3 months ago, and after being discharged has becoming increasingly forgetful. The PCP reports the patient lives at home with his , but the spends a portion of her day working. The patient reports s/p has bladder stone removal he had a catheter inserted. After catheter removal a week ago, the patient reports episodes of hematuria. Today is well appearing, comfortable in bed, and knows person, place, date. Awaiting MRI brain , spoke with nurse about having work up completed. Active Medications Amlodipine Besylate (Norvasc -) 10 mg PO DAILY [facility] Last Admin: 11/15/16 09:19 Dose: 10 mg Benzocaine/Menthol (Cepacol Lozenge -) 1 each MM PRN PRN PRN Reason: SORE THROAT Gemfibrozil (Lopid -) 600 mg PO BID@0700,1630 [facility] Last Admin: 11/15/16 06:29 Dose: 600 mg Insulin Aspart (Novolog Vial Sliding Scale -) 1 vial SQ ACHS [facility] PRN Reason: Protocol Last Admin: 11/15/16 06:29 Dose: 4 units Isosorbide Mononitrate (Imdur -) 30 mg PO DAILY [facility] Last Admin: 11/15/16 09:19 Dose: 30 mg Losartan Potassium (Cozaar -) 50 mg PO DAILY [facility] Last Admin: 11/15/16 09:18 Dose: 50 mg Metoprolol Succinate (Toprol Xl -) 50 mg PO BID [facility] Last Admin: 11/15/16 10:50 Dose: 50 mg Nitrofurantoin Macrocrystals (Macrodantin -) 50 mg PO Q6HPO [facility] Last Admin: 11/15/16 06:15 Dose: 50 mg Nitroglycerin (Nitrostat -) 0.4 mg SL PRN PRN PRN Reason: FOR CHEST PAIN Last Admin: 11/15/16 06:11 Dose: 0.4 mg Non-Formulary Medication (Colesevelam Hcl [Welchol]) 625 mg PO TID [facility] Last Admin: 11/14/16 06:16 Dose: Not Given Pantoprazole Sodium (Protonix -) 20 mg PO DAILY [facility] Last Admin: 11/15/16 09:19 Dose: Not Given Ranolazine (Ranexa -) 500 mg PO BID [facility] Last Admin: 11/15/16 09:19 Dose: 500 mg Tamsulosin HCl (Flomax -) 0.4 mg PO DAILY@0830 [facility] Last Admin: 11/15/16 09:19 Dose: 0.4 mg Last Vital Signs Temp Pulse Resp BP Pulse Ox 98.2 F 90 18 155/77 96 11/15/16 08:00 11/15/16 08:00 11/15/16 08:00 11/15/16 08:00 11/15/16 08:53 GENERAL: Well developed, well nourished. Awake and alert. No acute distress. HEENT: Normocephalic, atraumatic. PERRLA, EOMI. No conjunctival pallor. Sclera are non- icteric. Moist mucous membranes. Oropharynx is clear. NECK: Supple. Full ROM. No JVD. Carotid pulses 2+ and symmetric, without bruits. No thyromegaly. No lymphadenopathy. CARDIOVASCULAR: Regular rate and rhythm. No murmurs, rubs, or gallops. Distal pulses are 2+ and symmetric. PULMONARY: No evidence of respiratory distress. Lungs clear to auscultation bilaterally. No wheezing, rales or rhonchi. ABDOMINAL: Soft. Non-tender. Non-distended. No rebound or guarding. No organomegaly. Normoactive bowel sounds. MUSCULOSKELETAL Normal range of motion at all joints. No bony deformities or tenderness. No CVA tenderness. EXTREMITIES: No cyanosis. No clubbing. No edema. No calf tenderness. SKIN: Warm and dry. Normal capillary refill. No rashes. No jaundice. NEUROLOGICAL: Alert, awake, appropriate. Cranial nerves 2-12 intact. No deficits to light touch and temperature in face, upper extremities and lower extremities. No motor deficits in the in face, upper extremities and lower extremities. Normoreflexic in the upper and lower extremities. Normal speech. Toes are down- going bilaterally. Gait is normal without ataxia. PSYCHIATRIC: Cooperative. Good eye contact. Appropriate mood and affect. CBCD WBC 12.0 K/mm3 (4.0-10.0) H D 11/15/16 07:25 RBC 3.34 M/mm3 (4.00-5.60) L 11/15/16 07:25 Hgb 9.9 GM/dL (11.7-16.9) L 11/15/16 07:25 Hct 29.6 % (35.4-49) L 11/15/16 07:25 MCV 88.5 fl (80-96) 11/15/16 07:25 MCHC 33.6 g/dl (32.0-35.9) 11/15/16 07:25 RDW 13.8 % (11.9-15.9) 11/15/16 07:25 Plt Count 396 K/MM3 (134-434) 11/15/16 07:25 MPV 8.8 fl (7.5-11.1) 11/15/16 07:25 CMP Sodium 135 mmol/L (136-145) L 11/15/16 07:25 Potassium 4.0 mmol/L (3.5-5.1) 11/15/16 07:25 Chloride 104 mmol/L (98-107) 11/15/16 07:25 Carbon Dioxide 22 mmol/L (21-32) 11/15/16 07:25 Anion Gap 9 (8-16) 11/15/16 07:25 BUN 22 mg/dL (7-18) H 11/15/16 07:25 Creatinine 1.3 mg/dL (0.7-1.3) 11/15/16 07:25 Creat Clearance w eGFR 54.26 (>60) 11/15/16 07:25 Calcium 8.9 mg/dL (8.5-10.1) 11/15/16 07:25 Total Bilirubin 0.4 mg/dL (0.2-1.0) D 11/15/16 07:25 AST 8 U/L (15-37) L 11/15/16 07:25 ALT 10 U/L (12-78) L 11/15/16 07:25 Alkaline Phosphatase 122 U/L (45-117) H 11/15/16 07:25 Total Protein 6.9 g/dl (6.4-8.2) 11/15/16 07:25 Albumin 3.1 g/dl (3.4-5.0) L 11/15/16 07:25 - RADIOLOGY EXAM: CXR IMPRESSION: Suboptimal examination, without evidence of acute lung disease EXAM: Head CT IMPRESSION: Moderate atrophy and chronic microvascular ischemic changes. Bilateral periventricular old lacunar infarcts are present. Lucency/ encephalomalacia in the left cerebellum, inferiorly/posteriorly. Correlate clinically to determine further evaluation and follow-up. Plan: 71-year-old male, with a significant past medical history of NIDDM, stents, hypertension, hyperlipidemia, and bladder stone removal, who was sent to the emergency department by his PCP, Dr. Reyes, due to increased forgetfulness for about a year. He believes the reports have been exaggerated and he feels he is managing to take care of himself. He was aware that is in the hospital and can tell me name of hospital. Ct head without acute changes Check B12, Folate, RPR MRI brain ordered for further evaluation, spoke with nurse about hopefully completing today Blood pressure control, continue Losartan, Amlodipine, Metoprolol Goal bp <140/90 chronically Continue Isulin, goal HgA1C < 6.0 Social work consult for possible home services if needed ([facility], home health aid?) There is outpatient memory evaluation I would like him to complete in office which can quantify memory, executive function, and attention Would not start medication at this time but depending on formal memory results, I would consider memory aid Fall precautions
--- NOTE | 2016-11-15 12:29 | PN ---
Progress Note (short form) - Note Progress Note: Renal Follow up for CKD PT seen and examined at the bedside No overnight events stiill feels lethargic no gross hematuria Vital Signs Temperature 98.2 F 11/15/16 12:00 Pulse Rate 89 11/15/16 12:00 Respiratory Rate 18 11/15/16 12:00 Blood Pressure 148/69 11/15/16 12:00 O2 Sat by Pulse Oximetry (%) 96 11/15/16 08:53 Intake & Output 11/12/16 11/13/16 11/14/16 11/15/16 23:59 23:59 23:59 23:59 Intake Total 405 1080 Balance 405 1080 Weight 230 lb 235 lb Gen: NAD, awake and alert CVS: RRR, No M/R Lungs: CTA, no rales or wheeze Abd: soft NT/ND No rebound or guarding. Ext: No edema, clubbing or cyanosis CBC, BMP 11/15/16 07:25 11/15/16 07:25 Current Medications Amlodipine Besylate (Norvasc -) 10 mg PO DAILY [facility] Last Admin: 11/15/16 09:19 Dose: 10 mg Benzocaine/Menthol (Cepacol Lozenge -) 1 each MM PRN PRN PRN Reason: SORE THROAT Gemfibrozil (Lopid -) 600 mg PO BID@0700,1630 [facility] Last Admin: 11/15/16 06:29 Dose: 600 mg Insulin Aspart (Novolog Vial Sliding Scale -) 1 vial SQ ACHS [facility] PRN Reason: Protocol Last Admin: 11/15/16 11:46 Dose: 6 units Isosorbide Mononitrate (Imdur -) 30 mg PO DAILY [facility] Last Admin: 11/15/16 09:19 Dose: 30 mg Losartan Potassium (Cozaar -) 50 mg PO DAILY [facility] Last Admin: 11/15/16 09:18 Dose: 50 mg Metoprolol Succinate (Toprol Xl -) 50 mg PO BID [facility] Last Admin: 11/15/16 10:50 Dose: 50 mg Nitrofurantoin Macrocrystals (Macrodantin -) 50 mg PO Q6HPO [facility] Last Admin: 11/15/16 11:46 Dose: 50 mg Nitroglycerin (Nitrostat -) 0.4 mg SL PRN PRN PRN Reason: FOR CHEST PAIN Last Admin: 11/15/16 06:11 Dose: 0.4 mg Non-Formulary Medication (Colesevelam Hcl [Welchol]) 625 mg PO TID [facility] Last Admin: 11/14/16 06:16 Dose: Not Given Pantoprazole Sodium (Protonix -) 20 mg PO DAILY [facility] Last Admin: 11/15/16 09:19 Dose: Not Given Ranolazine (Ranexa -) 500 mg PO BID [facility] Last Admin: 11/15/16 09:19 Dose: 500 mg Tamsulosin HCl (Flomax -) 0.4 mg PO DAILY@0830 [facility] Last Admin: 11/15/16 09:19 Dose: 0.4 mg A/P 71 year old Gentleman with PMhx of CAD s/p recent NSTEMI, DM Type 2, Hypertension, Hyperlipidemia, Nephrolithiasis (uric acid stones), BPH presents with complaints of hematuria and lower abd pain + increasing forgetfullness and found to have Cr of 1.4. #Acute on Chronic Renal Insufficiency with hematuria with hx of nephrolithiasis Renal US w/o hydronephrosis, Bladder wall was thickened. No significant PVR Repeat UA showed hematuria yesterday, now has no gross hematuria. Repeat UA today Check UCPR no indication for IVF now Urology consult if microscopic hematuria persists #Forgetfulness/confusion Neurology following #Hypertension Continue Losartan and Amlodipine Armando Sparks DO
--- NOTE | 2016-11-15 13:00 | PN ---
Progress Note, Physician History of Present Illness: Reports sharp atypical chest discomfort improved with lying on left lateral side , denies dyspnea. - Current Medication List Current Medications: Active Medications Amlodipine Besylate (Norvasc -) 10 mg PO DAILY [facility] Last Admin: 11/15/16 09:19 Dose: 10 mg Benzocaine/Menthol (Cepacol Lozenge -) 1 each MM PRN PRN PRN Reason: SORE THROAT Gemfibrozil (Lopid -) 600 mg PO BID@0700,1630 [facility] Last Admin: 11/15/16 06:29 Dose: 600 mg Insulin Aspart (Novolog Vial Sliding Scale -) 1 vial SQ ACHS [facility] PRN Reason: Protocol Last Admin: 11/15/16 11:46 Dose: 6 units Isosorbide Mononitrate (Imdur -) 30 mg PO DAILY [facility] Last Admin: 11/15/16 09:19 Dose: 30 mg Losartan Potassium (Cozaar -) 50 mg PO DAILY [facility] Last Admin: 11/15/16 09:18 Dose: 50 mg Metoprolol Succinate (Toprol Xl -) 50 mg PO BID [facility] Last Admin: 11/15/16 10:50 Dose: 50 mg Nitrofurantoin Macrocrystals (Macrodantin -) 50 mg PO Q6HPO [facility] Last Admin: 11/15/16 11:46 Dose: 50 mg Nitroglycerin (Nitrostat -) 0.4 mg SL PRN PRN PRN Reason: FOR CHEST PAIN Last Admin: 11/15/16 06:11 Dose: 0.4 mg Non-Formulary Medication (Colesevelam Hcl [Welchol]) 625 mg PO TID [facility] Last Admin: 11/14/16 06:16 Dose: Not Given Pantoprazole Sodium (Protonix -) 20 mg PO DAILY [facility] Last Admin: 11/15/16 09:19 Dose: Not Given Ranolazine (Ranexa -) 500 mg PO BID [facility] Last Admin: 11/15/16 09:19 Dose: 500 mg Tamsulosin HCl (Flomax -) 0.4 mg PO DAILY@0830 [facility] Last Admin: 11/15/16 09:19 Dose: 0.4 mg - Objective Vital Signs: Vital Signs Temperature 98.2 F 11/15/16 12:00 Pulse Rate 89 11/15/16 12:00 Respiratory Rate 18 11/15/16 12:00 Blood Pressure 148/69 11/15/16 12:00 O2 Sat by Pulse Oximetry (%) 96 11/15/16 08:53 Constitutional: Yes: No Distress, Calm Neck: Yes: Supple Cardiovascular: Yes: Regular Rate and Rhythm Respiratory: Yes: Regular, Diminished Gastrointestinal: Yes: Normal Bowel Sounds, Soft, Abdomen, Obese Edema: No Labs: CBC, BMP 11/15/16 07:25 11/15/16 07:25 INR, PTT INR 1.32 (0.82-1.09) H 11/13/16 21:59 - ....Imaging EKG: Report Reviewed (NSR without changes c/w previous) Problem List - Problems (1) CAD (coronary artery disease) Code(s): I25.10 - ATHSCL HEART DISEASE OF [place] CORONARY ARTERY W/O ANG PCTRS Qualifiers: Coronary Disease-Associated Artery/Lesion type: unspecified vessel or lesion type (2) Confused Code(s): R41.0 - DISORIENTATION, UNSPECIFIED (3) Forgetfulness Code(s): R68.89 - OTHER GENERAL SYMPTOMS AND SIGNS (4) ARF (acute renal failure) Code(s): N17.9 - ACUTE KIDNEY FAILURE, UNSPECIFIED Qualifiers: Acute renal failure type: unspecified Qualified Code(s): N17.9 - Acute kidney failure, unspecified (5) Bladder stones Code(s): N21.0 - CALCULUS IN BLADDER (6) Demand ischemia Code(s): I24.8 - OTHER FORMS OF ACUTE ISCHEMIC HEART DISEASE (7) 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 Code(s): E11.9 - TYPE 2 DIABETES MELLITUS WITHOUT COMPLICATIONS Qualifiers: 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 type: type 2 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 complication status: without complication 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 mcc insulin use: without vermin exterminator use Qualified Code(s): E11.9 - Type 2 diabetes mellitus without complications (8) HTN (hypertension) Code(s): I10 - ESSENTIAL (PRIMARY) HYPERTENSION Qualifiers: Hypertension type: essential hypertension Qualified Code(s): I10 - Essential (primary) hypertension (9) Hematuria Code(s): R31.9 - HEMATURIA, UNSPECIFIED (10) History of cardiac radiofrequency ablation (RFA) Code(s): Z98.89 - OTHER SPECIFIED POSTPROCEDURAL STATES * DO NOT USE * (11) Hypercholesteremia Code(s): E78.0 - PURE HYPERCHOLESTEROLEMIA * DO NOT USE * (12) Obstructive sleep apnea of adult Code(s): G47.33 - OBSTRUCTIVE SLEEP APNEA (ADULT) (PEDIATRIC) (13) Paroxysmal a-fib Code(s): I48.0 - PAROXYSMAL ATRIAL FIBRILLATION (14) S/P coronary artery stent placement Code(s): Z95.5 - PRESENCE OF CORONARY ANGIOPLASTY IMPLANT AND GRAFT Assessment/Plan 1. Atypical positional chest pain 2. Resolved hematuria post open cystotomy for stone removal 3. CAD post multi-vessel PCI stent - demand ischemia with trops downtrending from previous visit 4. Diastolic LV dysfunction with chronic class I NYHA classification LV failure 5. Paroxysmal atrial fibrillation previous history of RFA, [id number] score of 5 6. HTN 7. DM 8. Hyperlipidemia 9. History of KATJA 10. Acute on CKD resolving 11. Anemia 12. H/o old cerebellar stroke PLAN: 1. Neuro eval including brain MRI ongoing 2. Continue Toprol XL 50 bid, Lopid 600 bid, Imdur 30 qd, Welchol and Ranexa 500 bid 3. Continue Amlodipine 10 qd and Losartan 50 qd 4. Cardiac enzymes trend plateaued 5. Resume Eliquis 5 bid given resolution of post-procedure hematuria
[2016-11-15] MEDS: CEFTRIAXONE 50 ML IVPB SCH (14:32)
--- NOTE | 2016-11-15 16:18 | EKG ---
Test Reason : Blood Pressure : / mmHG Vent. Rate : 094 BPM Atrial Rate : 094 BPM P-R Int : 154 ms QRS Dur : 086 ms QT Int : 362 ms P-R-T Axes : 055 024 105 degrees QTc Int : 452 ms NORMAL SINUS RHYTHM ABNORMAL ECG WHEN COMPARED WITH ECG OF 15-NOV-2016 05:50, NO SIGNIFICANT CHANGE WAS FOUND Confirmed by KYRA SALAZAR MD ([id number]) on 11/15/2016 4:18:35 PM Referred By: HOSPITALIST Confirmed By:KYRA SALAZAR MD
--- NOTE | 2016-11-15 16:19 | EKG ---
Test Reason : Blood Pressure : / mmHG Vent. Rate : 093 BPM Atrial Rate : 093 BPM P-R Int : 154 ms QRS Dur : 094 ms QT Int : 366 ms P-R-T Axes : 059 019 113 degrees QTc Int : 455 ms NORMAL SINUS RHYTHM ABNORMAL ECG WHEN COMPARED WITH ECG OF 14-NOV-2016 07:05, VENT. RATE HAS INCREASED BY 35 BPM Confirmed by KYRA SALAZAR MD ([id number]) on 11/15/2016 4:19:09 PM Referred By: HOSPITALIST Confirmed By:KYRA SALAZAR MD
[2016-11-15 17:13] LABS: URINE APPEARANCE CLOUDY; URINE BILIRUBIN NEGATIVE (NEGATIVE); URINE COLOR YELLOW; URINE GLUCOSE (UA) 3+ (NEGATIVE); URINE KETONE NEGATIVE (NEGATIVE); URINE NITRITE NEGATIVE (NEGATIVE); URINE UROBILINOGEN NEGATIVE E.U./dl (0.2-1.0)
[2016-11-15 17:52] LABS: URINE BLOOD 3+ (NEGATIVE); URINE LEUK ESTERASE 3+ (NEGATIVE); URINE PROTEIN 1+ (NEGATIVE)
[2016-11-15 18:32] LABS: URINE BACTERIA RARE /hpf (NONE SEEN); URINE MUCUS RARE; URINE RBC 71 /hpf (0-3); URINE WBC 245 /hpf (3-5); YEAST MANY
--- NOTE | 2016-11-15 18:49 | PN ---
Progress Note (short form) - Note Progress Note: ID consult dictated Altered mental status Possible sepsis secondary to UTI Leukocytosis Hx + urine c/s ESBL/VRE Pending c/s continue empiric ceftriaxone
--- NOTE | 2016-11-15 20:26 | CONS ---
DATE OF CONSULTATION: DATE OF DICTATION: 11/15/2016 HISTORY OF PRESENT ILLNESS: The patient is a 71-year-old male who is evaluated for possible sepsis secondary to urinary tract infection. He was admitted to the hospital on November 14, 2016, with reports of altered mental status. His hospital course was notable for elevated white blood cell count. He was empirically treated with ceftriaxone for possible sepsis secondary to UTI. The patient is awake and responsive. He complains of recent memory loss reports of disorientation. He states he had had recent episodes of dysuria. Denies hematuria. The patient has had a complicated recent past medical history. In October 2016, the patient underwent a TURP and extraction of a bladder stone. At that time, his course was complicated by bladder perforation requiring repair and insertion of a suprapubic tube. Postoperatively, he developed acute urinary retention secondary to clot. Urine culture grew mixed organisms, including ESBL and VRE. He was treated with a course of nitrofurantoin. He denies any associated fever or chills. He has had some suprapubic discomfort since the surgery. He denies any flank pain. PAST MEDICAL HISTORY: Positive for diabetes mellitus; atrial fibrillation; coronary artery disease, status post stent; hypertension; hyperlipidemia; nephrolithiasis. PAST SURGICAL HISTORY: As above. Also includes appendectomy, total hip replacement, and cholecystectomy. ALLERGIES: STATINS. MEDICATIONS: Include ceftriaxone, Flomax, Cozaar, Eliquis, Toprol, Norvasc, Lopid, NovoLog, Protonix, Macrodantin. SOCIAL HISTORY: Lives at home with his . Former smoker. SYSTEMS REVIEW: Neurologic: As per HPI. Cardiac: Negative chest pain or palpitations. Respiratory: Negative cough or sputum production. Gastrointestinal: Negative vomiting or diarrhea. Genitourinary: As per HPI. LABORATORY DATA: White count 12.0, hematocrit 29.6, platelet count 396,000, creatinine 1.3. Urinalysis: 245 white cells. PHYSICAL EXAMINATION: General: He is awake, he is responsive. He is in no acute distress. Vital Signs: Temperature 98.3, blood pressure 148/69, pulse 79 and regular, respirations 18 per minute. HEENT: Sclerae anicteric. Heart: Heart sounds S1, S2. Lungs: Clear. Abdomen: Soft, no tenderness elicited. There is some suprapubic tenderness to palpation. There is a healed suprapubic wound. Extremities: Negative for edema. IMPRESSION: 1. Altered mental status, unclear etiology. 2. Possible sepsis secondary to urinary tract infection. 3. Status post transurethral resection of prostate, removal of bladder stone, and urinary bladder repair. 4. History of positive urine culture, extended-spectrum beta lactamase and vancomycin-resistant enterococcus. PLAN: Await blood and urine culture results. Continue with empiric ceftriaxone. Further recommendations pending final culture results and clinical course. Will follow. Thank you for the kind referral. MARIIA SAMUELS M.D. [id number]
[2016-11-15] MEDS: APIXABAN 5 MG TABLET PO SCH (21:23)
[2016-11-15] MEDS: ACETAMINOPHEN 325 MG TABLET (FP) PO PRN (21:26)
[2016-11-16] MEDS: NITROFURANTOIN MACROCRYSTAL 50 MG CAPSULE (FP) PO SCH ×4 (00:20→18:04)
[2016-11-16] MEDS ORDERED: INSULIN (NOVOLOG) ASPART 100 UNITS/ML 10ML VIAL ONE ×2 (06:16→06:20)
[2016-11-16] MEDS: INSULIN SLIDING SCALE (NOVOLOG) 1 VIAL SQ SCH ×4 (06:16→22:22)
[2016-11-16] MEDS: GEMFIBROZIL 600 MG TABLET (FP) PO SCH ×2 (06:18→16:27)
[2016-11-16] MEDS: ACETAMINOPHEN 325 MG TABLET (FP) PO PRN (06:18)
[2016-11-16] MEDS: TAMSULOSIN HCL 0.4 MG CAP.ER.24H (FP) PO SCH (08:15)
[2016-11-16] MEDS ORDERED: PT OWN MED DRAWER 7, Y5N ONE ×4 (09:20→22:09)
[2016-11-16] MEDS: PANTOPRAZOLE 20 MG TABLET (FP) PO SCH (09:21)
[2016-11-16] MEDS: CEFTRIAXONE 50 ML IVPB SCH (09:21)
[2016-11-16] MEDS: APIXABAN 5 MG TABLET PO SCH ×2 (09:21→22:19)
[2016-11-16] MEDS: amLODIPine BESYLATE 10 MG TABLET (FP) PO SCH (09:21)
[2016-11-16] MEDS: METOPROLOL SUCCINATE 50 MG TAB.SR.24H (FP) PO SCH ×2 (09:21→22:18)
[2016-11-16] MEDS: LOSARTAN POTASSIUM 50 MG TABLET (FP) PO SCH (09:21)
[2016-11-16] MEDS: RANOLAZINE E.R. 500 MG TABLET (FP) PO SCH ×2 (09:22→22:18)
[2016-11-16] MEDS: ISOSORBIDE MONONITRATE 30 MG TAB.SR.24H (FP) PO SCH (09:30)
[2016-11-16 10:06] LABS: MCH 29.8 pg (25.7-33.7); MCHC 33.8 g/dl (32.0-35.9); MEAN CELL VOLUME 88.2 fl (80-96); PLATELET COUNT 382 K/MM3 (134-434); WHITE BLOOD COUNT 9.6 K/mm3 (4.0-10.0)
[2016-11-16 10:10] LABS: ALBUMIN 3.1 g/dl (3.4-5.0); BILIRUBIN,TOTAL 0.4 mg/dL (0.2-1.0); CALCIUM 9.2 mg/dL (8.5-10.1); CREATININE 1.4 mg/dL (0.7-1.3); TOT PROT 7.1 g/dl (6.4-8.2)
[2016-11-16 10:13] LABS: TROPONIN I 0.12 ng/ml (0.00-0.05)
--- NOTE | 2016-11-16 12:32 | PN ---
Progress Note, Physician - Current Medication List Current Medications: Active Medications Acetaminophen (Tylenol -) 650 mg PO Q4H PRN PRN Reason: FEVER OR PAIN Last Admin: 11/16/16 06:18 Dose: 650 mg Amlodipine Besylate (Norvasc -) 10 mg PO DAILY [facility] Last Admin: 11/16/16 09:21 Dose: 10 mg Apixaban (Eliquis -) 5 mg PO BID [facility] Last Admin: 11/16/16 09:21 Dose: 5 mg Benzocaine/Menthol (Cepacol Lozenge -) 1 each MM PRN PRN PRN Reason: SORE THROAT Gemfibrozil (Lopid -) 600 mg PO BID@0700,1630 [facility] Last Admin: 11/16/16 06:18 Dose: 600 mg Ceftriaxone Sodium (Rocephin 1gm Ivpb (Pre-Docked)) 50 mls @ 100 mls/hr IVPB DAILY [facility] Last Admin: 11/16/16 09:21 Dose: 100 mls/hr Insulin Aspart (Novolog Vial Sliding Scale -) 1 vial SQ ACHS [facility] PRN Reason: Protocol Last Admin: 11/16/16 11:31 Dose: 8 units Isosorbide Mononitrate (Imdur -) 30 mg PO DAILY [facility] Last Admin: 11/16/16 09:30 Dose: 30 mg Losartan Potassium (Cozaar -) 50 mg PO DAILY [facility] Last Admin: 11/16/16 09:21 Dose: 50 mg Metoprolol Succinate (Toprol Xl -) 50 mg PO BID [facility] Last Admin: 11/16/16 09:21 Dose: 50 mg Nitrofurantoin Macrocrystals (Macrodantin -) 50 mg PO Q6HPO [facility] Last Admin: 11/16/16 11:33 Dose: 50 mg Nitroglycerin (Nitrostat -) 0.4 mg SL PRN PRN PRN Reason: FOR CHEST PAIN Last Admin: 11/15/16 06:11 Dose: 0.4 mg Non-Formulary Medication (Colesevelam Hcl [Welchol]) 625 mg PO TID [facility] Last Admin: 11/14/16 06:16 Dose: Not Given Pantoprazole Sodium (Protonix -) 20 mg PO DAILY [facility] Last Admin: 11/16/16 09:21 Dose: 20 mg Ranolazine (Ranexa -) 500 mg PO BID [facility] Last Admin: 11/16/16 09:22 Dose: 500 mg Tamsulosin HCl (Flomax -) 0.4 mg PO DAILY@0830 [facility] Last Admin: 11/16/16 08:15 Dose: 0.4 mg - Objective Vital Signs: Vital Signs Temperature 98.6 F 11/16/16 09:09 Pulse Rate 69 11/16/16 09:09 Respiratory Rate 20 11/16/16 09:09 Blood Pressure 135/55 11/16/16 09:09 O2 Sat by Pulse Oximetry (%) 97 11/16/16 10:00 Cardiovascular: Yes: S1, S2 Respiratory: Yes: Diminished Gastrointestinal: Yes: Normal Bowel Sounds, Soft Edema: No Labs: CBC, BMP 11/16/16 09:15 11/16/16 09:15 INR, PTT INR 1.32 (0.82-1.09) H 11/13/16 21:59 Problem List - Problems (1) Chest pain Assessment/Plan: TREND CE AC WILL D/W CARDIO TELE Code(s): R07.9 - CHEST PAIN, UNSPECIFIED Qualifiers: Chest pain type: unspecified Qualified Code(s): R07.9 - Chest pain, unspecified (2) CAD (coronary artery disease) Assessment/Plan: SAME MEDS ABOVE Code(s): I25.10 - ATHSCL HEART DISEASE OF [place] CORONARY ARTERY W/O ANG PCTRS Qualifiers: Coronary Disease-Associated Artery/Lesion type: unspecified vessel or lesion type (3) Hyperlipidemia Code(s): E78.5 - HYPERLIPIDEMIA, UNSPECIFIED Qualifiers: Hyperlipidemia type: other hyperlipidemia Qualified Code(s): E78.4 - Other hyperlipidemia (4) UTI (urinary tract infection) Assessment/Plan: ROCEPHIN ID UROLOGY Code(s): N39.0 - URINARY TRACT INFECTION, SITE NOT SPECIFIED Qualifiers: Urinary tract infection type: acute cystitis (5) 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 Assessment/Plan: BGM Code(s): E11.9 - TYPE 2 DIABETES MELLITUS WITHOUT COMPLICATIONS Qualifiers: 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 type: type 2 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 complication status: without complication 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 fpc insulin use: without fpc use Qualified Code(s): E11.9 - Type 2 diabetes mellitus without complications (6) Hematuria Assessment/Plan: UROLOGY Code(s): R31.9 - HEMATURIA, UNSPECIFIED (7) Afib Assessment/Plan: AC--RESUME--ON ELIQUIS Code(s): I48.91 - UNSPECIFIED ATRIAL FIBRILLATION Qualifiers: Atrial fibrillation type: paroxysmal Qualified Code(s): I48.0 - Paroxysmal atrial fibrillation Assessment/Plan Forgetfulness Assessment/Plan: MRI neuro eval appreicated outpatient FU pedning MRI result Code(s): R68.89 - OTHER GENERAL SYMPTOMS AND SIGNS
--- NOTE | 2016-11-16 13:02 | PN ---
Progress Note (short form) - Note Progress Note: Neurology The patient is a 71-year-old male, with a significant past medical history of NIDDM, stents, hypertension, hyperlipidemia, and bladder stone removal, who was sent to the emergency department by his PCP, Dr. Reyes, due to increased forgetfulness for about a year. As per notes, the patient is becoming more and more forgetful, is non-compliant with his diabetes medication, and thus concern he will not be able to readily take care of himself. As per , the patient had one episode of DKA about 3 months ago, and after being discharged has becoming increasingly forgetful. The PCP reports the patient lives at home with his , but the spends a portion of her day working. The patient reports s/p has bladder stone removal he had a catheter inserted. After catheter removal a week ago, the patient reports episodes of hematuria. Today is well appearing, comfortable in bed, and knows person, place, date. MRI brain completed and demostrated acute R parietal infarct and also mention of diminished flow of L vertebral and recommended CTA of head and neck which I will order. Patient on Eliquis for AC and I would not add antiplatelet to this due to risk of bleed. Recommend optimizing BP management as this may be hypertensive lacunar infarct. Active Medications Acetaminophen (Tylenol -) 650 mg PO Q4H PRN PRN Reason: FEVER OR PAIN Last Admin: 11/16/16 06:18 Dose: 650 mg Amlodipine Besylate (Norvasc -) 10 mg PO DAILY [facility] Last Admin: 11/16/16 09:21 Dose: 10 mg Apixaban (Eliquis -) 5 mg PO BID [facility] Last Admin: 11/16/16 09:21 Dose: 5 mg Benzocaine/Menthol (Cepacol Lozenge -) 1 each MM PRN PRN PRN Reason: SORE THROAT Gemfibrozil (Lopid -) 600 mg PO BID@0700,1630 [facility] Last Admin: 11/16/16 06:18 Dose: 600 mg Ceftriaxone Sodium (Rocephin 1gm Ivpb (Pre-Docked)) 50 mls @ 100 mls/hr IVPB DAILY [facility] Last Admin: 11/16/16 09:21 Dose: 100 mls/hr Insulin Aspart (Novolog Vial Sliding Scale -) 1 vial SQ ACHS [facility] PRN Reason: Protocol Last Admin: 11/16/16 11:31 Dose: 8 units Isosorbide Mononitrate (Imdur -) 30 mg PO DAILY [facility] Last Admin: 11/16/16 09:30 Dose: 30 mg Losartan Potassium (Cozaar -) 50 mg PO DAILY [facility] Last Admin: 11/16/16 09:21 Dose: 50 mg Metoprolol Succinate (Toprol Xl -) 50 mg PO BID [facility] Last Admin: 11/16/16 09:21 Dose: 50 mg Nitrofurantoin Macrocrystals (Macrodantin -) 50 mg PO Q6HPO [facility] Last Admin: 11/16/16 11:33 Dose: 50 mg Nitroglycerin (Nitrostat -) 0.4 mg SL PRN PRN PRN Reason: FOR CHEST PAIN Last Admin: 11/15/16 06:11 Dose: 0.4 mg Non-Formulary Medication (Colesevelam Hcl [Welchol]) 625 mg PO TID [facility] Last Admin: 11/14/16 06:16 Dose: Not Given Pantoprazole Sodium (Protonix -) 20 mg PO DAILY [facility] Last Admin: 11/16/16 09:21 Dose: 20 mg Ranolazine (Ranexa -) 500 mg PO BID [facility] Last Admin: 11/16/16 09:22 Dose: 500 mg Tamsulosin HCl (Flomax -) 0.4 mg PO DAILY@0830 [facility] Last Admin: 11/16/16 08:15 Dose: 0.4 mg Vital Signs Temperature 98.6 F 11/16/16 09:09 Pulse Rate 69 11/16/16 09:09 Respiratory Rate 20 11/16/16 09:09 Blood Pressure 135/55 11/16/16 09:09 O2 Sat by Pulse Oximetry (%) 97 11/16/16 10:00 GENERAL: Well developed, well nourished. Awake and alert. No acute distress. HEENT: Normocephalic, atraumatic. PERRLA, EOMI. No conjunctival pallor. Sclera are non- icteric. Moist mucous membranes. Oropharynx is clear. NECK: Supple. Full ROM. No JVD. Carotid pulses 2+ and symmetric, without bruits. No thyromegaly. No lymphadenopathy. CARDIOVASCULAR: Regular rate and rhythm. No murmurs, rubs, or gallops. Distal pulses are 2+ and symmetric. PULMONARY: No evidence of respiratory distress. Lungs clear to auscultation bilaterally. No wheezing, rales or rhonchi. ABDOMINAL: Soft. Non-tender. Non-distended. No rebound or guarding. No organomegaly. Normoactive bowel sounds. MUSCULOSKELETAL Normal range of motion at all joints. No bony deformities or tenderness. No CVA tenderness. EXTREMITIES: No cyanosis. No clubbing. No edema. No calf tenderness. SKIN: Warm and dry. Normal capillary refill. No rashes. No jaundice. NEUROLOGICAL: Alert, awake, appropriate. Cranial nerves 2-12 intact. No deficits to light touch and temperature in face, upper extremities and lower extremities. No motor deficits in the in face, upper extremities and lower extremities. Normoreflexic in the upper and lower extremities. Normal speech. Toes are down- going bilaterally. Gait is normal without ataxia. PSYCHIATRIC: Cooperative. Good eye contact. Appropriate mood and affect. CBCD WBC 9.6 K/mm3 (4.0-10.0) 11/16/16 09:15 RBC 3.29 M/mm3 (4.00-5.60) L 11/16/16 09:15 Hgb 9.8 GM/dL (11.7-16.9) L 11/16/16 09:15 Hct 29.0 % (35.4-49) L 11/16/16 09:15 MCV 88.2 fl (80-96) 11/16/16 09:15 MCHC 33.8 g/dl (32.0-35.9) 11/16/16 09:15 RDW 14.0 % (11.9-15.9) 11/16/16 09:15 Plt Count 382 K/MM3 (134-434) 11/16/16 09:15 MPV 9.0 fl (7.5-11.1) 11/16/16 09:15 CMP Sodium 134 mmol/L (136-145) L 11/16/16 09:15 Potassium 3.8 mmol/L (3.5-5.1) 11/16/16 09:15 Chloride 102 mmol/L (98-107) 11/16/16 09:15 Carbon Dioxide 25 mmol/L (21-32) 11/16/16 09:15 Anion Gap 7 (8-16) L 11/16/16 09:15 BUN 19 mg/dL (7-18) H 11/16/16 09:15 Creatinine 1.4 mg/dL (0.7-1.3) H 11/16/16 09:15 Creat Clearance w eGFR 49.82 (>60) 11/16/16 09:15 Calcium 9.2 mg/dL (8.5-10.1) 11/16/16 09:15 Total Bilirubin 0.4 mg/dL (0.2-1.0) 11/16/16 09:15 AST 10 U/L (15-37) L D 11/16/16 09:15 ALT 10 U/L (12-78) L 11/16/16 09:15 Alkaline Phosphatase 101 U/L (45-117) 11/16/16 09:15 Total Protein 7.1 g/dl (6.4-8.2) 11/16/16 09:15 Albumin 3.1 g/dl (3.4-5.0) L 11/16/16 09:15 - RADIOLOGY EXAM: CXR IMPRESSION: Suboptimal examination, without evidence of acute lung disease EXAM: Head CT IMPRESSION: Moderate atrophy and chronic microvascular ischemic changes. Bilateral periventricular old lacunar infarcts are present. Lucency/ encephalomalacia in the left cerebellum, inferiorly/posteriorly. Correlate clinically to determine further evaluation and follow-up. Exam: MRI brain Impression: Acute R parietal infarct and also mention of diminished flow of L vertebral and recommended CTA of head and neck Plan: 71-year-old male, with a significant past medical history of NIDDM, stents, hypertension, hyperlipidemia, and bladder stone removal, who was sent to the emergency department by his PCP, Dr. Reyes, due to increased forgetfulness for about a year. He believes the reports have been exaggerated and he feels he is managing to take care of himself. Ct head without acute changes MRI brain reviewed as above Blood pressure control as this may be lacunar infarct 2/2 HTN as patient already on Eliquis Would not add antiplatelet due to risk of bleed Continue Losartan, Amlodipine, Metoprolol Goal bp strictly <140/90 chronically Continue Isulin, goal HgA1C < 6.0 Social work consult for possible home services if needed ([facility], home health aid?) There is outpatient memory evaluation I would like him to complete in office which can quantify memory, executive function, and attention Fall precautions as patient on AC
--- NOTE | 2016-11-16 15:35 | PN ---
Progress Note, Physician History of Present Illness: Sharp atypical reproducible chest wall discomfort improved, denies dyspnea. - Current Medication List Current Medications: Active Medications Acetaminophen (Tylenol -) 650 mg PO Q4H PRN PRN Reason: FEVER OR PAIN Last Admin: 11/16/16 06:18 Dose: 650 mg Amlodipine Besylate (Norvasc -) 10 mg PO DAILY [facility] Last Admin: 11/16/16 09:21 Dose: 10 mg Apixaban (Eliquis -) 5 mg PO BID [facility] Last Admin: 11/16/16 09:21 Dose: 5 mg Benzocaine/Menthol (Cepacol Lozenge -) 1 each MM PRN PRN PRN Reason: SORE THROAT Gemfibrozil (Lopid -) 600 mg PO BID@0700,1630 [facility] Last Admin: 11/16/16 06:18 Dose: 600 mg Ceftriaxone Sodium (Rocephin 1gm Ivpb (Pre-Docked)) 50 mls @ 100 mls/hr IVPB DAILY [facility] Last Admin: 11/16/16 09:21 Dose: 100 mls/hr Insulin Aspart (Novolog Vial Sliding Scale -) 1 vial SQ ACHS [facility] PRN Reason: Protocol Last Admin: 11/16/16 11:31 Dose: 8 units Isosorbide Mononitrate (Imdur -) 30 mg PO DAILY [facility] Last Admin: 11/16/16 09:30 Dose: 30 mg Losartan Potassium (Cozaar -) 50 mg PO DAILY [facility] Last Admin: 11/16/16 09:21 Dose: 50 mg Metoprolol Succinate (Toprol Xl -) 50 mg PO BID [facility] Last Admin: 11/16/16 09:21 Dose: 50 mg Nitrofurantoin Macrocrystals (Macrodantin -) 50 mg PO Q6HPO [facility] Last Admin: 11/16/16 11:33 Dose: 50 mg Nitroglycerin (Nitrostat -) 0.4 mg SL PRN PRN PRN Reason: FOR CHEST PAIN Last Admin: 11/15/16 06:11 Dose: 0.4 mg Non-Formulary Medication (Colesevelam Hcl [Welchol]) 625 mg PO TID [facility] Last Admin: 11/14/16 06:16 Dose: Not Given Pantoprazole Sodium (Protonix -) 20 mg PO DAILY [facility] Last Admin: 11/16/16 09:21 Dose: 20 mg Ranolazine (Ranexa -) 500 mg PO BID [facility] Last Admin: 11/16/16 09:22 Dose: 500 mg Tamsulosin HCl (Flomax -) 0.4 mg PO DAILY@0830 [facility] Last Admin: 11/16/16 08:15 Dose: 0.4 mg - Objective Vital Signs: Vital Signs Temperature 98.4 F 11/16/16 15:00 Pulse Rate 74 11/16/16 15:00 Respiratory Rate 20 11/16/16 15:00 Blood Pressure 112/58 11/16/16 15:00 O2 Sat by Pulse Oximetry (%) 97 11/16/16 10:00 Constitutional: Yes: No Distress, Calm Neck: Yes: Supple Cardiovascular: Yes: Regular Rate and Rhythm Respiratory: Yes: Regular, Diminished Gastrointestinal: Yes: Normal Bowel Sounds, Soft Edema: No Labs: CBC, BMP 11/16/16 09:15 11/16/16 09:15 INR, PTT INR 1.32 (0.82-1.09) H 11/13/16 21:59 Problem List - Problems (1) CAD (coronary artery disease) Code(s): I25.10 - ATHSCL HEART DISEASE OF [place] CORONARY ARTERY W/O ANG PCTRS Qualifiers: Coronary Disease-Associated Artery/Lesion type: unspecified vessel or lesion type (2) Confused Code(s): R41.0 - DISORIENTATION, UNSPECIFIED (3) Forgetfulness Code(s): R68.89 - OTHER GENERAL SYMPTOMS AND SIGNS (4) ARF (acute renal failure) Code(s): N17.9 - ACUTE KIDNEY FAILURE, UNSPECIFIED Qualifiers: Acute renal failure type: unspecified Qualified Code(s): N17.9 - Acute kidney failure, unspecified (5) Bladder stones Code(s): N21.0 - CALCULUS IN BLADDER (6) Demand ischemia Code(s): I24.8 - OTHER FORMS OF ACUTE ISCHEMIC HEART DISEASE (7) 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 Code(s): E11.9 - TYPE 2 DIABETES MELLITUS WITHOUT COMPLICATIONS Qualifiers: 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 type: type 2 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 complication status: without complication 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 senior care insulin use: without senior care use Qualified Code(s): E11.9 - Type 2 diabetes mellitus without complications (8) HTN (hypertension) Code(s): I10 - ESSENTIAL (PRIMARY) HYPERTENSION Qualifiers: Hypertension type: essential hypertension Qualified Code(s): I10 - Essential (primary) hypertension (9) Hematuria Code(s): R31.9 - HEMATURIA, UNSPECIFIED (10) History of cardiac radiofrequency ablation (RFA) Code(s): Z98.89 - OTHER SPECIFIED POSTPROCEDURAL STATES * DO NOT USE * (11) Hypercholesteremia Code(s): E78.0 - PURE HYPERCHOLESTEROLEMIA * DO NOT USE * (12) Obstructive sleep apnea of adult Code(s): G47.33 - OBSTRUCTIVE SLEEP APNEA (ADULT) (PEDIATRIC) (13) Paroxysmal a-fib Code(s): I48.0 - PAROXYSMAL ATRIAL FIBRILLATION (14) S/P coronary artery stent placement Code(s): Z95.5 - PRESENCE OF CORONARY ANGIOPLASTY IMPLANT AND GRAFT (15) UTI (urinary tract infection) Code(s): N39.0 - URINARY TRACT INFECTION, SITE NOT SPECIFIED Qualifiers: Urinary tract infection type: site unspecified (16) Acute ischemic stroke Code(s): I63.9 - CEREBRAL INFARCTION, UNSPECIFIED Assessment/Plan EXAM: CXR IMPRESSION: Suboptimal examination, without evidence of acute lung disease EXAM: Head CT IMPRESSION: Moderate atrophy and chronic microvascular ischemic changes. Bilateral periventricular old lacunar infarcts are present. Lucency/ encephalomalacia in the left cerebellum, inferiorly/posteriorly. Correlate clinically to determine further evaluation and follow-up. Exam: MRI brain Impression: Acute R parietal infarct and also mention of diminished flow of L vertebral and recommended CTA of head and neck 1. Acute right parietal stroke (off a/c due to hematuria) 2. Toxic met encephelopathy due to UTI improved 3. Resolved hematuria post open cystotomy for stone removal 4. CAD post multi-vessel PCI stent - demand ischemia with trops downtrending from previous visit 5. Diastolic LV dysfunction with chronic class I NYHA classification LV failure 6. Paroxysmal atrial fibrillation previous history of RFA, [id number] score of 5 7. HTN 8. DM 9. Hyperlipidemia 10. History of KATJA 11. Acute on CKD resolving 12. Anemia 12. H/o old cerebellar stroke PLAN: 1. Abx course per C&S 2. Continue Toprol XL 50 bid, Lopid 600 bid, Imdur 30 qd, Welchol and Ranexa 500 bid 3. Continue Amlodipine 10 qd and Losartan 50 qd 4. Cardiac enzymes trend plateaued 5. Tolerating Eliquis 5 bid given resolution of post-procedure hematuria
[2016-11-16] MEDS: NITROGLYCERIN SUBLINGUAL 1/150 0.4 MG TAB SL PRN (16:07)
--- NOTE | 2016-11-16 18:40 | PN ---
Progress Note, Physician History of Present Illness: Awake, alert C/O L sided cp No c/o dysuria No fever/ chills BC (-) Urine growing GNR - Current Medication List Current Medications: Active Medications Acetaminophen (Tylenol -) 650 mg PO Q4H PRN PRN Reason: FEVER OR PAIN Last Admin: 11/16/16 06:18 Dose: 650 mg Amlodipine Besylate (Norvasc -) 10 mg PO DAILY [facility] Last Admin: 11/16/16 09:21 Dose: 10 mg Apixaban (Eliquis -) 5 mg PO BID [facility] Last Admin: 11/16/16 09:21 Dose: 5 mg Benzocaine/Menthol (Cepacol Lozenge -) 1 each MM PRN PRN PRN Reason: SORE THROAT Gemfibrozil (Lopid -) 600 mg PO BID@0700,1630 [facility] Last Admin: 11/16/16 16:27 Dose: 600 mg Ceftriaxone Sodium (Rocephin 1gm Ivpb (Pre-Docked)) 50 mls @ 100 mls/hr IVPB DAILY [facility] Last Admin: 11/16/16 09:21 Dose: 100 mls/hr Insulin Aspart (Novolog Vial Sliding Scale -) 1 vial SQ ACHS [facility] PRN Reason: Protocol Last Admin: 11/16/16 16:27 Dose: 6 units Isosorbide Mononitrate (Imdur -) 30 mg PO DAILY [facility] Last Admin: 11/16/16 09:30 Dose: 30 mg Losartan Potassium (Cozaar -) 50 mg PO DAILY [facility] Last Admin: 11/16/16 09:21 Dose: 50 mg Metoprolol Succinate (Toprol Xl -) 50 mg PO BID [facility] Last Admin: 11/16/16 09:21 Dose: 50 mg Nitrofurantoin Macrocrystals (Macrodantin -) 50 mg PO Q6HPO [facility] Last Admin: 11/16/16 18:04 Dose: 50 mg Nitroglycerin (Nitrostat -) 0.4 mg SL PRN PRN PRN Reason: FOR CHEST PAIN Last Admin: 11/16/16 16:07 Dose: 0.4 mg Non-Formulary Medication (Colesevelam Hcl [Welchol]) 625 mg PO TID [facility] Last Admin: 11/14/16 06:16 Dose: Not Given Pantoprazole Sodium (Protonix -) 20 mg PO DAILY [facility] Last Admin: 11/16/16 09:21 Dose: 20 mg Ranolazine (Ranexa -) 500 mg PO BID [facility] Last Admin: 11/16/16 09:22 Dose: 500 mg Tamsulosin HCl (Flomax -) 0.4 mg PO DAILY@0830 [facility] Last Admin: 11/16/16 08:15 Dose: 0.4 mg - Objective Vital Signs: Vital Signs Temperature 98.4 F 11/16/16 15:00 Pulse Rate 77 11/16/16 16:09 Respiratory Rate 20 11/16/16 16:09 Blood Pressure 105/55 11/16/16 16:09 O2 Sat by Pulse Oximetry (%) 97 11/16/16 10:00 Constitutional: Yes: No Distress Eyes: Yes: Conjunctiva Clear Cardiovascular: Yes: Regular Rate and Rhythm, S1, S2 Respiratory: Yes: CTA Bilaterally Gastrointestinal: Yes: Normal Bowel Sounds, Soft, Tenderness, Other (+ suprapubic tenderness to palp) Labs: CBC, BMP 11/16/16 09:15 11/16/16 09:15 INR, PTT INR 1.32 (0.82-1.09) H 11/13/16 21:59 Assessment/Plan UTI/ Possible sepsis secondary to UTI Altered mental status- improved Await urine c/s Continue ceftriaxone
[2016-11-17] MEDS: NITROFURANTOIN MACROCRYSTAL 50 MG CAPSULE (FP) PO SCH ×2 (00:10→06:48)
[2016-11-17] MEDS: INSULIN SLIDING SCALE (NOVOLOG) 1 VIAL SQ SCH ×4 (06:48→22:16)
[2016-11-17] MEDS: GEMFIBROZIL 600 MG TABLET (FP) PO SCH ×2 (06:49→16:30)
[2016-11-17] MEDS: TAMSULOSIN HCL 0.4 MG CAP.ER.24H (FP) PO SCH (08:12)
[2016-11-17 08:13] LABS: BASOPHIL 0.2 % (0-2.0); MCH 29.9 pg (25.7-33.7); MCHC 33.9 g/dl (32.0-35.9); MEAN CELL VOLUME 88.1 fl (80-96); MEAN PLT VOLUME 8.9 fl (7.5-11.1); NEUTROPHILS 53.7 % (42.8-82.8); PLATELET COUNT 364 K/MM3 (134-434); WHITE BLOOD COUNT 8.5 K/mm3 (4.0-10.0)
[2016-11-17 08:41] LABS: ALBUMIN 2.9 g/dl (3.4-5.0); BILIRUBIN,TOTAL 0.4 mg/dL (0.2-1.0); CALCIUM 8.6 mg/dL (8.5-10.1); CREATININE 1.6 mg/dL (0.7-1.3); MAGNESIUM 1.5 mg/dL (1.8-2.4); PHOSPHOROUS 2.8 mg/dL (2.5-4.9); TOT PROT 6.8 g/dl (6.4-8.2)
[2016-11-17 08:44] LABS: TROPONIN I 0.1 ng/ml (0.00-0.05)
[2016-11-17] MEDS ORDERED: PT OWN MED DRAWER 7, Y5N ONE ×3 (09:41→22:02)
[2016-11-17] MEDS: LOSARTAN POTASSIUM 50 MG TABLET (FP) PO SCH (09:43)
[2016-11-17] MEDS: CEFTRIAXONE 50 ML IVPB SCH (09:43)
[2016-11-17] MEDS: PANTOPRAZOLE 20 MG TABLET (FP) PO SCH (09:43)
[2016-11-17] MEDS: ISOSORBIDE MONONITRATE 30 MG TAB.SR.24H (FP) PO SCH (09:43)
[2016-11-17] MEDS: APIXABAN 5 MG TABLET PO SCH ×2 (09:43→22:16)
[2016-11-17] MEDS: RANOLAZINE E.R. 500 MG TABLET (FP) PO SCH ×2 (09:43→22:16)
[2016-11-17] MEDS: METOPROLOL SUCCINATE 50 MG TAB.SR.24H (FP) PO SCH ×2 (09:44→22:16)
[2016-11-17] MEDS: amLODIPine BESYLATE 10 MG TABLET (FP) PO SCH (09:44)
--- NOTE | 2016-11-17 10:25 | PN ---
Progress Note, Physician History of Present Illness: reports intermittant gross hematuria denies dysuria no c/o fever/ chills urine c/ ESBL + low grade temps BC (-) + eosinophilia - Current Medication List Current Medications: Active Medications Acetaminophen (Tylenol -) 650 mg PO Q4H PRN PRN Reason: FEVER OR PAIN Last Admin: 11/16/16 06:18 Dose: 650 mg Amlodipine Besylate (Norvasc -) 10 mg PO DAILY [facility] Last Admin: 11/17/16 09:44 Dose: 10 mg Apixaban (Eliquis -) 5 mg PO BID [facility] Last Admin: 11/17/16 09:43 Dose: 5 mg Benzocaine/Menthol (Cepacol Lozenge -) 1 each MM PRN PRN PRN Reason: SORE THROAT Gemfibrozil (Lopid -) 600 mg PO BID@0700,1630 [facility] Last Admin: 11/17/16 06:49 Dose: 600 mg Insulin Aspart (Novolog Vial Sliding Scale -) 1 vial SQ ACHS [facility] PRN Reason: Protocol Last Admin: 11/17/16 06:48 Dose: 2 units Isosorbide Mononitrate (Imdur -) 30 mg PO DAILY [facility] Last Admin: 11/17/16 09:43 Dose: 30 mg Losartan Potassium (Cozaar -) 50 mg PO DAILY [facility] Last Admin: 11/17/16 09:43 Dose: 50 mg Metoprolol Succinate (Toprol Xl -) 50 mg PO BID [facility] Last Admin: 11/17/16 09:44 Dose: 50 mg Nitrofurantoin Macrocrystals (Macrodantin -) 50 mg PO Q6HPO [facility] Last Admin: 11/17/16 06:48 Dose: 50 mg Nitroglycerin (Nitrostat -) 0.4 mg SL PRN PRN PRN Reason: FOR CHEST PAIN Last Admin: 11/16/16 16:07 Dose: 0.4 mg Non-Formulary Medication (Colesevelam Hcl [Welchol]) 625 mg PO TID [facility] Last Admin: 11/14/16 06:16 Dose: Not Given Pantoprazole Sodium (Protonix -) 20 mg PO DAILY [facility] Last Admin: 11/17/16 09:43 Dose: 20 mg Ranolazine (Ranexa -) 500 mg PO BID [facility] Last Admin: 11/17/16 09:43 Dose: 500 mg Tamsulosin HCl (Flomax -) 0.4 mg PO DAILY@0830 [facility] Last Admin: 11/17/16 08:12 Dose: 0.4 mg - Objective Vital Signs: Vital Signs Temperature 99.2 F 11/17/16 09:00 Pulse Rate 81 11/17/16 09:00 Respiratory Rate 20 11/17/16 09:00 Blood Pressure 116/53 11/17/16 09:00 O2 Sat by Pulse Oximetry (%) 97 11/16/16 21:00 Constitutional: Yes: No Distress Eyes: Yes: Conjunctiva Clear Cardiovascular: Yes: Regular Rate and Rhythm, S1, S2 Respiratory: Yes: CTA Bilaterally Gastrointestinal: Yes: Normal Bowel Sounds, Soft. No: Tenderness Edema: No Labs: CBC, BMP 11/17/16 07:10 11/17/16 07:10 INR, PTT INR 1.32 (0.82-1.09) H 11/13/16 21:59 Assessment/Plan UTI/ Possible sepsis secondary to UTI- ESBL Altered mental status- improved Azotemia, eosinophilia ?interstitial nephritis Will substitute ertapenem Contact precautions
--- NOTE | 2016-11-17 10:38 | PN ---
Progress Note (short form) - Note Progress Note: Renal Follow up for CKD PT seen and examined at the bedside no acute complaints Vital Signs Temperature 99.2 F 11/17/16 09:00 Pulse Rate 81 11/17/16 09:00 Respiratory Rate 20 11/17/16 09:00 Blood Pressure 116/53 11/17/16 09:00 O2 Sat by Pulse Oximetry (%) 97 11/16/16 21:00 Intake & Output 11/14/16 11/15/16 11/16/16 11/17/16 23:59 23:59 23:59 23:59 Intake Total 405 1610 180 Balance 405 1610 180 Weight 235 lb Gen: NAD, awake and alert CVS: RRR, No M/R Lungs: CTA, no rales or wheeze Abd: soft NT/ND No rebound or guarding. Ext: No edema, clubbing or cyanosis CBC, BMP 11/17/16 07:10 11/17/16 07:10 Current Medications Acetaminophen (Tylenol -) 650 mg PO Q4H PRN PRN Reason: FEVER OR PAIN Last Admin: 11/16/16 06:18 Dose: 650 mg Amlodipine Besylate (Norvasc -) 10 mg PO DAILY [facility] Last Admin: 11/17/16 09:44 Dose: 10 mg Apixaban (Eliquis -) 5 mg PO BID [facility] Last Admin: 11/17/16 09:43 Dose: 5 mg Benzocaine/Menthol (Cepacol Lozenge -) 1 each MM PRN PRN PRN Reason: SORE THROAT Gemfibrozil (Lopid -) 600 mg PO BID@0700,1630 [facility] Last Admin: 11/17/16 06:49 Dose: 600 mg Ertapenem 0.5 gm/ Sodium (Chloride) 50 mls @ 50 mls/hr IVPB DAILY [facility] Insulin Aspart (Novolog Vial Sliding Scale -) 1 vial SQ ACHS [facility] PRN Reason: Protocol Last Admin: 11/17/16 06:48 Dose: 2 units Isosorbide Mononitrate (Imdur -) 30 mg PO DAILY [facility] Last Admin: 11/17/16 09:43 Dose: 30 mg Losartan Potassium (Cozaar -) 50 mg PO DAILY [facility] Last Admin: 11/17/16 09:43 Dose: 50 mg Metoprolol Succinate (Toprol Xl -) 50 mg PO BID [facility] Last Admin: 11/17/16 09:44 Dose: 50 mg Nitroglycerin (Nitrostat -) 0.4 mg SL PRN PRN PRN Reason: FOR CHEST PAIN Last Admin: 11/16/16 16:07 Dose: 0.4 mg Non-Formulary Medication (Colesevelam Hcl [Welchol]) 625 mg PO TID [facility] Last Admin: 11/14/16 06:16 Dose: Not Given Pantoprazole Sodium (Protonix -) 20 mg PO DAILY [facility] Last Admin: 11/17/16 09:43 Dose: 20 mg Ranolazine (Ranexa -) 500 mg PO BID [facility] Last Admin: 11/17/16 09:43 Dose: 500 mg Tamsulosin HCl (Flomax -) 0.4 mg PO DAILY@0830 [facility] Last Admin: 11/17/16 08:12 Dose: 0.4 mg A/P 71 year old Gentleman with PMhx of CAD s/p recent NSTEMI, DM Type 2, Hypertension, Hyperlipidemia, Nephrolithiasis (uric acid stones), BPH presents with complaints of hematuria and lower abd pain + increasing forgetfullness and found to have Cr of 1.4. #Acute on Chronic Renal Insufficiency with hematuria with hx of nephrolithiasis Renal US w/o hydronephrosis, Bladder wall was thickened. No significant PVR Repeat UA showed hematuria yesterday, now has no gross hematuria. Renal function stable Hematuria persists, consider urolgoy eval #Forgetfulness/confusion with acute and old CVA's seen on MRI Pt at risk for worsening renal function if pt were to get IV contrast given GFR > 30 pt can westley MRA with Trino to eval circulation Discussed with Dr. Morales #Hypertension Continue Losartan and Amlodipine Armando Sparks DO
[2016-11-17] MEDS: ERTAPENEM SODIUM 0.5 GM in SODIUM CHLORIDE 50 ML IVPB SCH (12:35)
--- NOTE | 2016-11-17 12:35 | PN ---
Progress Note, Physician - Current Medication List Current Medications: Active Medications Acetaminophen (Tylenol -) 650 mg PO Q4H PRN PRN Reason: FEVER OR PAIN Last Admin: 11/16/16 06:18 Dose: 650 mg Amlodipine Besylate (Norvasc -) 10 mg PO DAILY [facility] Last Admin: 11/17/16 09:44 Dose: 10 mg Apixaban (Eliquis -) 5 mg PO BID [facility] Last Admin: 11/17/16 09:43 Dose: 5 mg Benzocaine/Menthol (Cepacol Lozenge -) 1 each MM PRN PRN PRN Reason: SORE THROAT Gemfibrozil (Lopid -) 600 mg PO BID@0700,1630 [facility] Last Admin: 11/17/16 06:49 Dose: 600 mg Ertapenem 0.5 gm/ Sodium (Chloride) 50 mls @ 100 mls/hr IVPB DAILY [facility] Insulin Aspart (Novolog Vial Sliding Scale -) 1 vial SQ ACHS [facility] PRN Reason: Protocol Last Admin: 11/17/16 11:16 Dose: 6 units Isosorbide Mononitrate (Imdur -) 30 mg PO DAILY [facility] Last Admin: 11/17/16 09:43 Dose: 30 mg Losartan Potassium (Cozaar -) 50 mg PO DAILY [facility] Last Admin: 11/17/16 09:43 Dose: 50 mg Metoprolol Succinate (Toprol Xl -) 50 mg PO BID [facility] Last Admin: 11/17/16 09:44 Dose: 50 mg Nitroglycerin (Nitrostat -) 0.4 mg SL PRN PRN PRN Reason: FOR CHEST PAIN Last Admin: 11/16/16 16:07 Dose: 0.4 mg Non-Formulary Medication (Colesevelam Hcl [Welchol]) 625 mg PO TID [facility] Last Admin: 11/14/16 06:16 Dose: Not Given Pantoprazole Sodium (Protonix -) 20 mg PO DAILY [facility] Last Admin: 11/17/16 09:43 Dose: 20 mg Ranolazine (Ranexa -) 500 mg PO BID [facility] Last Admin: 11/17/16 09:43 Dose: 500 mg Tamsulosin HCl (Flomax -) 0.4 mg PO DAILY@0830 [facility] Last Admin: 11/17/16 08:12 Dose: 0.4 mg Zinc Acetate/Diphenhydramine (Benadryl 2% Cream) 1 applic TP BID LONNIE - Objective Vital Signs: Vital Signs Temperature 99.2 F 11/17/16 09:00 Pulse Rate 81 11/17/16 09:00 Respiratory Rate 20 11/17/16 09:00 Blood Pressure 116/53 11/17/16 09:00 O2 Sat by Pulse Oximetry (%) 98 11/17/16 09:00 Constitutional: Yes: Calm Neck: Yes: Trachea Midline Cardiovascular: Yes: Regular Rate and Rhythm, S1, S2 Respiratory: Yes: CTA Bilaterally Gastrointestinal: Yes: Normal Bowel Sounds, Soft Neurological: Yes: Alert, Oriented Labs: CBC, BMP 11/17/16 07:10 11/17/16 07:10 INR, PTT INR 1.32 (0.82-1.09) H 11/13/16 21:59 Problem List - Problems (1) Acute ischemic stroke Assessment/Plan: MRI noted MRA with millicent pending eliquis monitor for hematuria Code(s): I63.9 - CEREBRAL INFARCTION, UNSPECIFIED (2) Hematuria Assessment/Plan: urology eval h/h stable elevated esosinophils interstitial nephritis abx to be changed by ID Code(s): R31.9 - HEMATURIA, UNSPECIFIED (3) Hyperlipidemia Assessment/Plan: eron current meds Code(s): E78.5 - HYPERLIPIDEMIA, UNSPECIFIED Qualifiers: Hyperlipidemia type: other hyperlipidemia Qualified Code(s): E78.4 - Other hyperlipidemia (4) ARF (acute renal failure) Assessment/Plan: renal on board Code(s): N17.9 - ACUTE KIDNEY FAILURE, UNSPECIFIED Qualifiers: Acute renal failure type: unspecified Qualified Code(s): N17.9 - Acute kidney failure, unspecified (5) 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 Assessment/Plan: slididng scale VNS services need set up for help with Dm medication at home Code(s): E11.9 - TYPE 2 DIABETES MELLITUS WITHOUT COMPLICATIONS Qualifiers: 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 type: type 2 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 complication status: without complication 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 mcc insulin use: without mcc use Qualified Code(s): E11.9 - Type 2 diabetes mellitus without complications (6) UTI (urinary tract infection) Assessment/Plan: iv abx per ID Microbiology 11/15/16 02:15 Urine - Urine Clean Catch Urine Culture - Final Escherichia Coli Esbl Database Administration Project Manager Code(s): N39.0 - URINARY TRACT INFECTION, SITE NOT SPECIFIED Qualifiers: Urinary tract infection type: site unspecified (7) Forgetfulness Assessment/Plan: MRA with imllicent MRI done shows right side acute parietal stroke eliquis restarted Code(s): R68.89 - OTHER GENERAL SYMPTOMS AND SIGNS (8) CAD (coronary artery disease) Assessment/Plan: continue cardiac meds Code(s): I25.10 - ATHSCL HEART DISEASE OF [place] CORONARY ARTERY W/O ANG PCTRS Qualifiers: Coronary Disease-Associated Artery/Lesion type: unspecified vessel or lesion type
--- NOTE | 2016-11-17 15:08 | PN ---
Progress Note, Physician History of Present Illness: No further sharp atypical reproducible chest wall discomfort, denies dyspnea. - Current Medication List Current Medications: Active Medications Acetaminophen (Tylenol -) 650 mg PO Q4H PRN PRN Reason: FEVER OR PAIN Last Admin: 11/16/16 06:18 Dose: 650 mg Amlodipine Besylate (Norvasc -) 10 mg PO DAILY [facility] Last Admin: 11/17/16 09:44 Dose: 10 mg Apixaban (Eliquis -) 5 mg PO BID [facility] Last Admin: 11/17/16 09:43 Dose: 5 mg Benzocaine/Menthol (Cepacol Lozenge -) 1 each MM PRN PRN PRN Reason: SORE THROAT Gemfibrozil (Lopid -) 600 mg PO BID@0700,1630 [facility] Last Admin: 11/17/16 06:49 Dose: 600 mg Ertapenem 0.5 gm/ Sodium (Chloride) 50 mls @ 100 mls/hr IVPB DAILY [facility] Last Admin: 11/17/16 12:35 Dose: 100 mls/hr Insulin Aspart (Novolog Vial Sliding Scale -) 1 vial SQ ACHS [facility] PRN Reason: Protocol Last Admin: 11/17/16 11:16 Dose: 6 units Isosorbide Mononitrate (Imdur -) 30 mg PO DAILY [facility] Last Admin: 11/17/16 09:43 Dose: 30 mg Losartan Potassium (Cozaar -) 50 mg PO DAILY [facility] Last Admin: 11/17/16 09:43 Dose: 50 mg Metoprolol Succinate (Toprol Xl -) 50 mg PO BID [facility] Last Admin: 11/17/16 09:44 Dose: 50 mg Nitroglycerin (Nitrostat -) 0.4 mg SL PRN PRN PRN Reason: FOR CHEST PAIN Last Admin: 11/16/16 16:07 Dose: 0.4 mg Non-Formulary Medication (Colesevelam Hcl [Welchol]) 625 mg PO TID [facility] Last Admin: 11/14/16 06:16 Dose: Not Given Pantoprazole Sodium (Protonix -) 20 mg PO DAILY [facility] Last Admin: 11/17/16 09:43 Dose: 20 mg Ranolazine (Ranexa -) 500 mg PO BID [facility] Last Admin: 11/17/16 09:43 Dose: 500 mg Tamsulosin HCl (Flomax -) 0.4 mg PO DAILY@0830 [facility] Last Admin: 11/17/16 08:12 Dose: 0.4 mg Zinc Acetate/Diphenhydramine (Benadryl 2% Cream) 1 applic TP BID [facility] - Objective Vital Signs: Vital Signs Temperature 99.2 F 11/17/16 09:00 Pulse Rate 81 11/17/16 09:00 Respiratory Rate 20 11/17/16 09:00 Blood Pressure 116/53 11/17/16 09:00 O2 Sat by Pulse Oximetry (%) 98 11/17/16 09:00 Constitutional: Yes: No Distress, Calm Neck: Yes: Supple Cardiovascular: Yes: Regular Rate and Rhythm Respiratory: Yes: Regular, Diminished Gastrointestinal: Yes: Normal Bowel Sounds, Soft Edema: No Labs: CBC, BMP 11/17/16 07:10 11/17/16 07:10 INR, PTT INR 1.32 (0.82-1.09) H 11/13/16 21:59 Problem List - Problems (1) CAD (coronary artery disease) Code(s): I25.10 - ATHSCL HEART DISEASE OF [place] CORONARY ARTERY W/O ANG PCTRS Qualifiers: Coronary Disease-Associated Artery/Lesion type: unspecified vessel or lesion type (2) Confused Code(s): R41.0 - DISORIENTATION, UNSPECIFIED (3) Forgetfulness Code(s): R68.89 - OTHER GENERAL SYMPTOMS AND SIGNS (4) ARF (acute renal failure) Code(s): N17.9 - ACUTE KIDNEY FAILURE, UNSPECIFIED Qualifiers: Acute renal failure type: unspecified Qualified Code(s): N17.9 - Acute kidney failure, unspecified (5) Bladder stones Code(s): N21.0 - CALCULUS IN BLADDER (6) Demand ischemia Code(s): I24.8 - OTHER FORMS OF ACUTE ISCHEMIC HEART DISEASE (7) 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 Code(s): E11.9 - TYPE 2 DIABETES MELLITUS WITHOUT COMPLICATIONS Qualifiers: 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 type: type 2 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 complication status: without complication 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 snf insulin use: without snf use Qualified Code(s): E11.9 - Type 2 diabetes mellitus without complications (8) HTN (hypertension) Code(s): I10 - ESSENTIAL (PRIMARY) HYPERTENSION Qualifiers: Hypertension type: essential hypertension Qualified Code(s): I10 - Essential (primary) hypertension (9) Hematuria Code(s): R31.9 - HEMATURIA, UNSPECIFIED (10) History of cardiac radiofrequency ablation (RFA) Code(s): Z98.89 - OTHER SPECIFIED POSTPROCEDURAL STATES * DO NOT USE * (11) Hypercholesteremia Code(s): E78.0 - PURE HYPERCHOLESTEROLEMIA * DO NOT USE * (12) Obstructive sleep apnea of adult Code(s): G47.33 - OBSTRUCTIVE SLEEP APNEA (ADULT) (PEDIATRIC) (13) Paroxysmal a-fib Code(s): I48.0 - PAROXYSMAL ATRIAL FIBRILLATION (14) S/P coronary artery stent placement Code(s): Z95.5 - PRESENCE OF CORONARY ANGIOPLASTY IMPLANT AND GRAFT (15) UTI (urinary tract infection) Code(s): N39.0 - URINARY TRACT INFECTION, SITE NOT SPECIFIED Qualifiers: Urinary tract infection type: site unspecified (16) Acute ischemic stroke Code(s): I63.9 - CEREBRAL INFARCTION, UNSPECIFIED Assessment/Plan EXAM: CXR IMPRESSION: Suboptimal examination, without evidence of acute lung disease EXAM: Head CT IMPRESSION: Moderate atrophy and chronic microvascular ischemic changes. Bilateral periventricular old lacunar infarcts are present. Lucency/ encephalomalacia in the left cerebellum, inferiorly/posteriorly. Correlate clinically to determine further evaluation and follow-up. Exam: MRI brain Impression: Acute R parietal infarct and also mention of diminished flow of L vertebral and recommended CTA of head and neck 1. Acute right parietal stroke (off a/c due to hematuria) 2. Toxic met encephelopathy due to UTI - ESBL improved 3. Resolved hematuria post open cystotomy for stone removal 4. CAD post multi-vessel PCI stent - demand ischemia with trops downtrending from previous visit 5. Diastolic LV dysfunction with chronic class I NYHA classification LV failure 6. Paroxysmal atrial fibrillation previous history of RFA, [id number] score of 5 7. HTN 8. DM 9. Hyperlipidemia 10. History of KATJA 11. Acute on CKD 12. Anemia 12. H/o old cerebellar stroke PLAN: 1. Abx course per C&S 2. Continue Toprol XL 50 bid, Lopid 600 bid, Imdur 30 qd, Welchol and Ranexa 500 bid 3. Continue Amlodipine 10 qd and Losartan 50 qd 4. Cardiac enzymes trend plateaued 5. Tolerating Eliquis 5 bid given resolution of post-procedure hematuria
[2016-11-18] MEDS: GEMFIBROZIL 600 MG TABLET (FP) PO SCH ×2 (06:11→16:32)
[2016-11-18] MEDS: INSULIN SLIDING SCALE (NOVOLOG) 1 VIAL SQ SCH ×4 (06:12→22:27)
[2016-11-18 08:28] LABS: MCH 29.9 pg (25.7-33.7); MCHC 33.7 g/dl (32.0-35.9); MEAN CELL VOLUME 88.8 fl (80-96); MEAN PLT VOLUME 8.9 fl (7.5-11.1); PLATELET COUNT 427 K/MM3 (134-434); RDW 13.9 % (11.9-15.9); WHITE BLOOD COUNT 7.5 K/mm3 (4.0-10.0)
[2016-11-18 08:39] LABS: CALCIUM 9.3 mg/dL (8.5-10.1); CREATININE 1.5 mg/dL (0.7-1.3); MAGNESIUM 1.7 mg/dL (1.8-2.4); PHOSPHOROUS 4.1 mg/dL (2.5-4.9)
--- NOTE | 2016-11-18 08:52 | CONSULT ---
Consult - History of Present Illness History of Present Illness: 71 yo male with BPH s/p TURP/bladder stone lithotripsy one month ago, who then developed clot retention and bladder perforation. Now admitted with forgetfullness, intermittant hematuria. Voiding without hematuria for the past 2 days. No dysuria. Ucx growing ESBL. Also on Eliquus for h/o afib and recent TIA. Renal sono without hydro and negligible pvr - Past Medical History Cardio/Vascular: Yes: AFIB (not on AC), CAD (with stent), HTN, Hyperlipdemia Pulmonary: Yes: Sleep Apnea Hepatobiliary: Yes: Cholelithiasis Renal/: Yes: BPH, Renal Calculi Endocrine: Yes: Diabetes Mellitus - Past Surgical History Past Surgical History: Yes: Appendectomy, Joint Replacement (Hip surgery for fracture right femur, ORIF right ankle, hip replacement) - Alcohol/Substance Use Hx Alcohol Use: No - Smoking History Smoking history: Former smoker Have you smoked in the past 12 months: No Aproximately how many cigarettes per day: 4 If you are a former smoker, when did you quit?: 1995 - Social History Usual Living Arrangement: With Spouse ADL: Independent Home Medications - Allergies Allergies/Adverse Reactions: Allergies Allergy/AdvReac Type Severity Reaction Status Date / Time [id number] Reductase Allergy Unknown Verified 11/13/16 20:52 Inhibitor lactose AdvReac Verified 11/13/16 20:52 - Home Medications Home Medications: Ambulatory Orders Amlodipine Besylate [Norvasc -] 10 mg PO DAILY 12/20/15 Colesevelam HCl [Welchol] 625 mg PO TID 12/20/15 Tamsulosin HCl [Flomax -] 0.4 mg PO DAILY #10 capsule 06/01/16 Gemfibrozil [Lopid] 600 mg PO BID 10/14/16 Losartan Potassium [Cozaar -] 50 mg PO DAILY 10/14/16 Nitroglycerin [Nitrostat] 0.4 mg SL PRN PRN 10/14/16 Omeprazole 20 mg PO DAILY 10/14/16 Potassium Citrate [Potassium Citrate ER] 15 meq PO DAILY 10/14/16 Insulin (Levemir) [Levemir Vial] 14 units SQ ASDIR #0 10/24/16 Phytonadione [Mephyton] 5 mg PO DAILY #1 tablet 10/24/16 Insulin Sliding Scale [Novolog Vial Sliding Scale -] 1 vial SQ BIDAC units Isosorbide Mononitrate [Imdur -] 30 mg PO DAILY tab.sr.24h 11/01/16 Metoprolol Succinate [Toprol XL -] 50 mg PO DAILY #90 tab.sr.24h 11/01/16 Nitrofurantoin Macrocrystal [Macrodantin -] 50 mg PO Q6HPO #40 capsule 11/01/16 Ranolazine [Ranexa -] 500 mg PO BID tab 11/01/16 Family Disease History - Family Disease History Family Disease History: Diabetes: Grandparent Physical Exam- Vital Signs: Vital Signs Temperature 97.7 F 11/18/16 08:00 Pulse Rate 60 11/18/16 08:00 Respiratory Rate 20 11/18/16 08:00 Blood Pressure 122/60 11/18/16 08:00 O2 Sat by Pulse Oximetry (%) 98 11/17/16 21:00 Labs: CBC, BMP 11/18/16 06:20 11/18/16 06:20 Problem List - Problems (1) UTI (urinary tract infection) Assessment/Plan: abx as per ID, no need for coughlin, will monitor for hematurioa in light of need for Eliquus Code(s): N39.0 - URINARY TRACT INFECTION, SITE NOT SPECIFIED Qualifiers: Urinary tract infection type: acute cystitis
--- NOTE | 2016-11-18 09:11 | PN ---
Progress Note, Physician Chief Complaint: patient had hematuria one episode today - Current Medication List Current Medications: Active Medications Acetaminophen (Tylenol -) 650 mg PO Q4H PRN PRN Reason: FEVER OR PAIN Last Admin: 11/16/16 06:18 Dose: 650 mg Amlodipine Besylate (Norvasc -) 10 mg PO DAILY [facility] Last Admin: 11/17/16 09:44 Dose: 10 mg Apixaban (Eliquis -) 5 mg PO BID [facility] Last Admin: 11/17/16 22:16 Dose: 5 mg Benzocaine/Menthol (Cepacol Lozenge -) 1 each MM PRN PRN PRN Reason: SORE THROAT Gemfibrozil (Lopid -) 600 mg PO BID@0700,1630 [facility] Last Admin: 11/18/16 06:11 Dose: 600 mg Ertapenem 0.5 gm/ Sodium (Chloride) 50 mls @ 100 mls/hr IVPB DAILY [facility] Last Admin: 11/17/16 12:35 Dose: 100 mls/hr Insulin Aspart (Novolog Vial Sliding Scale -) 1 vial SQ ACHS [facility] PRN Reason: Protocol Last Admin: 11/18/16 06:12 Dose: 2 units Isosorbide Mononitrate (Imdur -) 30 mg PO DAILY [facility] Last Admin: 11/17/16 09:43 Dose: 30 mg Losartan Potassium (Cozaar -) 50 mg PO DAILY [facility] Last Admin: 11/17/16 09:43 Dose: 50 mg Magnesium Sulfate (Magnesium Sulfate) 2 gm IVPB ONCE ONE Stop: 11/18/16 09:09 Metoprolol Succinate (Toprol Xl -) 50 mg PO BID [facility] Last Admin: 11/17/16 22:16 Dose: 50 mg Nitroglycerin (Nitrostat -) 0.4 mg SL PRN PRN PRN Reason: FOR CHEST PAIN Last Admin: 11/16/16 16:07 Dose: 0.4 mg Non-Formulary Medication (Colesevelam Hcl [Welchol]) 625 mg PO TID [facility] Last Admin: 11/14/16 06:16 Dose: Not Given Pantoprazole Sodium (Protonix -) 20 mg PO DAILY [facility] Last Admin: 11/17/16 09:43 Dose: 20 mg Ranolazine (Ranexa -) 500 mg PO BID [facility] Last Admin: 11/17/16 22:16 Dose: 500 mg Tamsulosin HCl (Flomax -) 0.4 mg PO DAILY@0830 [facility] Last Admin: 11/17/16 08:12 Dose: 0.4 mg Zinc Acetate/Diphenhydramine (Benadryl 2% Cream) 1 applic TP BID [facility] Last Admin: 11/17/16 22:16 Dose: 1 applic - Objective Vital Signs: Vital Signs Temperature 97.7 F 11/18/16 08:00 Pulse Rate 60 11/18/16 08:00 Respiratory Rate 20 11/18/16 08:00 Blood Pressure 122/60 11/18/16 08:00 O2 Sat by Pulse Oximetry (%) 98 11/17/16 21:00 Constitutional: Yes: Calm Cardiovascular: Yes: Regular Rate and Rhythm, S1, S2 Respiratory: Yes: CTA Bilaterally Gastrointestinal: Yes: Normal Bowel Sounds, Soft Edema: No Neurological: Yes: Alert, Oriented Labs: CBC, BMP 11/18/16 06:20 11/18/16 06:20 INR, PTT INR 1.32 (0.82-1.09) H 11/13/16 21:59 Problem List - Problems (1) Acute ischemic stroke Assessment/Plan: MRI noted MRA done report pending eliquis one episode of hematuria h/h ok- on eliquis Code(s): I63.9 - CEREBRAL INFARCTION, UNSPECIFIED (2) Hematuria Assessment/Plan: urology eval noted h/h stable elevated esosinophils interstitial nephritis abx to be changed by ID Code(s): R31.9 - HEMATURIA, UNSPECIFIED (3) Hyperlipidemia Assessment/Plan: eron current meds Code(s): E78.5 - HYPERLIPIDEMIA, UNSPECIFIED Qualifiers: Hyperlipidemia type: other hyperlipidemia Qualified Code(s): E78.4 - Other hyperlipidemia (4) ARF (acute renal failure) Assessment/Plan: renal on board Code(s): N17.9 - ACUTE KIDNEY FAILURE, UNSPECIFIED Qualifiers: Acute renal failure type: unspecified Qualified Code(s): N17.9 - Acute kidney failure, unspecified (5) 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 Assessment/Plan: slididng scale VNS services need set up for help with Dm medication at home Code(s): E11.9 - TYPE 2 DIABETES MELLITUS WITHOUT COMPLICATIONS Qualifiers: 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 type: type 2 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 complication status: without complication 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 mcfp insulin use: without mcfp use Qualified Code(s): E11.9 - Type 2 diabetes mellitus without complications (6) UTI (urinary tract infection) Assessment/Plan: iv abx per ID Microbiology 11/15/16 02:15 Urine - Urine Clean Catch Urine Culture - Final Escherichia Coli Esbl 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
[2016-11-18] MEDS ORDERED: PT OWN MED DRAWER 7, Y5N ONE ×3 (09:14→21:44)
[2016-11-18] MEDS: ERTAPENEM SODIUM 0.5 GM in SODIUM CHLORIDE 50 ML IVPB SCH (09:20)
[2016-11-18] MEDS: TAMSULOSIN HCL 0.4 MG CAP.ER.24H (FP) PO SCH (09:20)
[2016-11-18] MEDS: APIXABAN 5 MG TABLET PO SCH ×2 (09:21→22:35)
[2016-11-18] MEDS: LOSARTAN POTASSIUM 50 MG TABLET (FP) PO SCH (09:21)
[2016-11-18] MEDS: METOPROLOL SUCCINATE 50 MG TAB.SR.24H (FP) PO SCH ×2 (09:21→22:32)
[2016-11-18] MEDS: amLODIPine BESYLATE 10 MG TABLET (FP) PO SCH (09:21)
[2016-11-18] MEDS: PANTOPRAZOLE 20 MG TABLET (FP) PO SCH (09:21)
[2016-11-18] MEDS: ISOSORBIDE MONONITRATE 30 MG TAB.SR.24H (FP) PO SCH (09:21)
[2016-11-18] MEDS: RANOLAZINE E.R. 500 MG TABLET (FP) PO SCH ×2 (09:21→22:32)
[2016-11-18] MEDS ORDERED: MAGNESIUM SULF 50% (8.12 MEQ/2 ML-1 GM VIAL) IVPB ONE (09:45)
--- NOTE | 2016-11-18 10:47 | PN ---
Progress Note, Physician Chief Complaint: Not in distress History of Present Illness: Patient was seen and examined. Awake and alert. Chart was reviewed Denies chest pain, SOB or palpitation - Current Medication List Current Medications: Active Medications Acetaminophen (Tylenol -) 650 mg PO Q4H PRN PRN Reason: FEVER OR PAIN Last Admin: 11/16/16 06:18 Dose: 650 mg Amlodipine Besylate (Norvasc -) 10 mg PO DAILY [facility] Last Admin: 11/18/16 09:21 Dose: 10 mg Apixaban (Eliquis -) 5 mg PO BID [facility] Last Admin: 11/18/16 09:21 Dose: 5 mg Benzocaine/Menthol (Cepacol Lozenge -) 1 each MM PRN PRN PRN Reason: SORE THROAT Gemfibrozil (Lopid -) 600 mg PO BID@0700,1630 [facility] Last Admin: 11/18/16 06:11 Dose: 600 mg Ertapenem 0.5 gm/ Sodium (Chloride) 50 mls @ 100 mls/hr IVPB DAILY [facility] Last Admin: 11/18/16 09:20 Dose: 100 mls/hr Insulin Aspart (Novolog Vial Sliding Scale -) 1 vial SQ ACHS [facility] PRN Reason: Protocol Last Admin: 11/18/16 06:12 Dose: 2 units Isosorbide Mononitrate (Imdur -) 30 mg PO DAILY [facility] Last Admin: 11/18/16 09:21 Dose: 30 mg Losartan Potassium (Cozaar -) 50 mg PO DAILY [facility] Last Admin: 11/18/16 09:21 Dose: 50 mg Metoprolol Succinate (Toprol Xl -) 50 mg PO BID [facility] Last Admin: 11/18/16 09:21 Dose: 50 mg Nitroglycerin (Nitrostat -) 0.4 mg SL PRN PRN PRN Reason: FOR CHEST PAIN Last Admin: 11/16/16 16:07 Dose: 0.4 mg Non-Formulary Medication (Colesevelam Hcl [Welchol]) 625 mg PO TID [facility] Last Admin: 11/14/16 06:16 Dose: Not Given Pantoprazole Sodium (Protonix -) 20 mg PO DAILY [facility] Last Admin: 11/18/16 09:21 Dose: 20 mg Ranolazine (Ranexa -) 500 mg PO BID [facility] Last Admin: 11/18/16 09:21 Dose: 500 mg Tamsulosin HCl (Flomax -) 0.4 mg PO DAILY@0830 [facility] Last Admin: 11/18/16 09:20 Dose: 0.4 mg Zinc Acetate/Diphenhydramine (Benadryl 2% Cream) 1 applic TP BID [facility] Last Admin: 11/18/16 09:23 Dose: 1 applic - Objective Vital Signs: Vital Signs Temperature 97.7 F 11/18/16 08:00 Pulse Rate 60 11/18/16 08:00 Respiratory Rate 20 11/18/16 08:00 Blood Pressure 122/60 11/18/16 08:00 O2 Sat by Pulse Oximetry (%) 98 11/17/16 21:00 Neck: Yes: Supple Cardiovascular: Yes: Regular Rate and Rhythm, S1, S2 Respiratory: Yes: CTA Bilaterally Gastrointestinal: Yes: Normal Bowel Sounds, Soft. No: Tenderness Edema: No Labs: CBC, BMP 11/18/16 06:20 11/18/16 06:20 Problem List - Problems (1) Acute ischemic stroke Code(s): I63.9 - CEREBRAL INFARCTION, UNSPECIFIED (2) Afib Code(s): I48.91 - UNSPECIFIED ATRIAL FIBRILLATION Qualifiers: Atrial fibrillation type: paroxysmal Qualified Code(s): I48.0 - Paroxysmal atrial fibrillation (3) CAD (coronary artery disease) Code(s): I25.10 - ATHSCL HEART DISEASE OF [place] CORONARY ARTERY W/O ANG PCTRS Qualifiers: Coronary Disease-Associated Artery/Lesion type: unspecified vessel or lesion type (4) Hyperlipidemia Code(s): E78.5 - HYPERLIPIDEMIA, UNSPECIFIED Qualifiers: Hyperlipidemia type: other hyperlipidemia Qualified Code(s): E78.4 - Other hyperlipidemia (5) UTI (urinary tract infection) Code(s): N39.0 - URINARY TRACT INFECTION, SITE NOT SPECIFIED Qualifiers: Urinary tract infection type: acute cystitis (6) ARF (acute renal failure) Code(s): N17.9 - ACUTE KIDNEY FAILURE, UNSPECIFIED Qualifiers: Acute renal failure type: unspecified Qualified Code(s): N17.9 - Acute kidney failure, unspecified (7) Demand ischemia Code(s): I24.8 - OTHER FORMS OF ACUTE ISCHEMIC HEART DISEASE (8) 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 Code(s): E11.9 - TYPE 2 DIABETES MELLITUS WITHOUT COMPLICATIONS Qualifiers: 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 type: type 2 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 complication status: without complication 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 senior living insulin use: without termite control service representative use Qualified Code(s): E11.9 - Type 2 diabetes mellitus without complications (9) HTN (hypertension) Code(s): I10 - ESSENTIAL (PRIMARY) HYPERTENSION Qualifiers: Hypertension type: essential hypertension Qualified Code(s): I10 - Essential (primary) hypertension (10) Hematuria Code(s): R31.9 - HEMATURIA, UNSPECIFIED (11) History of cardiac radiofrequency ablation (RFA) Code(s): Z98.89 - OTHER SPECIFIED POSTPROCEDURAL STATES * DO NOT USE * (12) Hypercholesteremia Code(s): E78.0 - PURE HYPERCHOLESTEROLEMIA * DO NOT USE * (13) S/P coronary artery stent placement Code(s): Z95.5 - PRESENCE OF CORONARY ANGIOPLASTY IMPLANT AND GRAFT Assessment/Plan 1. Acute right parietal stroke 2. Toxic metabolic encephelopathy due to UTI - ESBL 3. Resolved hematuria post open cystostomy for stone removal 4. CAD post multi-vessel PCI stent - demand ischemia 5. Diastolic LV dysfunction with chronic class I NYHA classification LV failure 6. Paroxysmal atrial fibrillation previous history of RFA, [id number] score of 5 7. HTN 8. DM 9. Hyperlipidemia 10. History of KATJA 11. Acute on CKD 12. Anemia 13. History of old cerebellar stroke PLAN: 1. Antibiotic course 2. Continue Toprol XL 50 mg BID, Lopid 600 mg BID, Imdur 30 mg QD, Welchol and Ranexa 500 mg BID 3. Continue Amlodipine 10 mg QD and Losartan 50 mg QD 4. Continue Eliquis 5 mg BID Further plans are to follow Riley Brandt MD
--- NOTE | 2016-11-18 11:12 | PN ---
Progress Note (short form) - Note Progress Note: Renal Follow up for CKD PT seen and examined at the bedside no complaints reports that he is drinking a lot of water but could not quantify no sob, chest pain no further hematuria no confusion or lethargy Vital Signs Temperature 97.7 F 11/18/16 08:00 Pulse Rate 60 11/18/16 08:00 Respiratory Rate 20 11/18/16 08:00 Blood Pressure 122/60 11/18/16 08:00 O2 Sat by Pulse Oximetry (%) 98 11/17/16 21:00 Intake & Output 11/15/16 11/16/16 11/17/16 11/18/16 23:59 23:59 23:59 23:59 Intake Total 1610 180 900 Balance 1610 180 900 Gen: NAD, awake and alert CVS: RRR, No M/R Lungs: CTA, no rales or wheeze Abd: soft NT/ND No rebound or guarding. Ext: No edema, clubbing or cyanosis CBC, BMP 11/18/16 06:20 11/18/16 06:20 Current Medications Acetaminophen (Tylenol -) 650 mg PO Q4H PRN PRN Reason: FEVER OR PAIN Last Admin: 11/16/16 06:18 Dose: 650 mg Amlodipine Besylate (Norvasc -) 10 mg PO DAILY [facility] Last Admin: 11/18/16 09:21 Dose: 10 mg Apixaban (Eliquis -) 5 mg PO BID [facility] Last Admin: 11/18/16 09:21 Dose: 5 mg Benzocaine/Menthol (Cepacol Lozenge -) 1 each MM PRN PRN PRN Reason: SORE THROAT Gemfibrozil (Lopid -) 600 mg PO BID@0700,1630 [facility] Last Admin: 11/18/16 06:11 Dose: 600 mg Ertapenem 0.5 gm/ Sodium (Chloride) 50 mls @ 100 mls/hr IVPB DAILY [facility] Last Admin: 11/18/16 09:20 Dose: 100 mls/hr Insulin Aspart (Novolog Vial Sliding Scale -) 1 vial SQ ACHS [facility] PRN Reason: Protocol Last Admin: 11/18/16 06:12 Dose: 2 units Isosorbide Mononitrate (Imdur -) 30 mg PO DAILY [facility] Last Admin: 01/17/17 09:21 Dose: 30 mg Losartan Potassium (Cozaar -) 50 mg PO DAILY [facility] Last Admin: 11/18/16 09:21 Dose: 50 mg Metoprolol Succinate (Toprol Xl -) 50 mg PO BID [facility] Last Admin: 11/18/16 09:21 Dose: 50 mg Nitroglycerin (Nitrostat -) 0.4 mg SL PRN PRN PRN Reason: FOR CHEST PAIN Last Admin: 11/16/16 16:07 Dose: 0.4 mg Non-Formulary Medication (Colesevelam Hcl [Welchol]) 625 mg PO TID [facility] Last Admin: 11/14/16 06:16 Dose: Not Given Pantoprazole Sodium (Protonix -) 20 mg PO DAILY [facility] Last Admin: 11/18/16 09:21 Dose: 20 mg Ranolazine (Ranexa -) 500 mg PO BID [facility] Last Admin: 11/18/16 09:21 Dose: 500 mg Tamsulosin HCl (Flomax -) 0.4 mg PO DAILY@0830 [facility] Last Admin: 11/18/16 09:20 Dose: 0.4 mg Zinc Acetate/Diphenhydramine (Benadryl 2% Cream) 1 applic TP BID [facility] Last Admin: 11/18/16 09:23 Dose: 1 applic A/P 71 year old Gentleman with PMhx of CAD s/p recent NSTEMI, DM Type 2, Hypertension, Hyperlipidemia, Nephrolithiasis (uric acid stones), BPH presents with complaints of hematuria and lower abd pain + increasing forgetfullness and found to have Cr of 1.4. #Acute on Chronic Renal Insufficiency with hematuria with hx of nephrolithiasis Renal US w/o hydronephrosis, Bladder wall was thickened. No significant PVR gross hematuria resolved, seen by urology Renal function stable #Hyponateremia pt reports large water intake unlikely SIADH given renal insuffiency free water restriction of 1L daily Trend Na Check Urine NA, URine OSM, Serum OSM no indication for 3% saline #Forgetfulness/confusion with acute and old CVA's seen on MRI MRI/MRA of the head and neck performed Neurology follow up #Hypertension Continue Losartan and Amlodipine Armando Sparks DO
[2016-11-18] MEDS ORDERED: INSULIN (NOVOLOG) ASPART 100 UNITS/ML 10ML VIAL ONE ×2 (11:46→22:37)
--- NOTE | 2016-11-18 16:05 | PN ---
Progress Note, Physician History of Present Illness: Awake, alert Offers no complaints Denies dysuria No c/o suprapubic pain No fever/ chills Eosinophilia persists - Current Medication List Current Medications: Active Medications Acetaminophen (Tylenol -) 650 mg PO Q4H PRN PRN Reason: FEVER OR PAIN Last Admin: 11/16/16 06:18 Dose: 650 mg Amlodipine Besylate (Norvasc -) 10 mg PO DAILY [facility] Last Admin: 11/18/16 09:21 Dose: 10 mg Apixaban (Eliquis -) 5 mg PO BID [facility] Last Admin: 11/18/16 09:21 Dose: 5 mg Benzocaine/Menthol (Cepacol Lozenge -) 1 each MM PRN PRN PRN Reason: SORE THROAT Gemfibrozil (Lopid -) 600 mg PO BID@0700,1630 [facility] Last Admin: 11/18/16 06:11 Dose: 600 mg Ertapenem 0.5 gm/ Sodium (Chloride) 50 mls @ 100 mls/hr IVPB DAILY [facility] Last Admin: 11/18/16 09:20 Dose: 100 mls/hr Insulin Aspart (Novolog Vial Sliding Scale -) 1 vial SQ ACHS [facility] PRN Reason: Protocol Last Admin: 11/18/16 11:59 Dose: 4 units Isosorbide Mononitrate (Imdur -) 30 mg PO DAILY [facility] Last Admin: 11/18/16 09:21 Dose: 30 mg Losartan Potassium (Cozaar -) 50 mg PO DAILY [facility] Last Admin: 11/18/16 09:21 Dose: 50 mg Metoprolol Succinate (Toprol Xl -) 50 mg PO BID [facility] Last Admin: 11/18/16 09:21 Dose: 50 mg Nitroglycerin (Nitrostat -) 0.4 mg SL PRN PRN PRN Reason: FOR CHEST PAIN Last Admin: 11/16/16 16:07 Dose: 0.4 mg Non-Formulary Medication (Colesevelam Hcl [Welchol]) 625 mg PO TID [facility] Last Admin: 11/14/16 06:16 Dose: Not Given Pantoprazole Sodium (Protonix -) 20 mg PO DAILY [facility] Last Admin: 11/18/16 09:21 Dose: 20 mg Ranolazine (Ranexa -) 500 mg PO BID [facility] Last Admin: 11/18/16 09:21 Dose: 500 mg Tamsulosin HCl (Flomax -) 0.4 mg PO DAILY@0830 [facility] Last Admin: 11/18/16 09:20 Dose: 0.4 mg Zinc Acetate/Diphenhydramine (Benadryl 2% Cream) 1 applic TP BID [facility] Last Admin: 11/18/16 09:23 Dose: 1 applic - Objective Vital Signs: Vital Signs Temperature 97.5 F L 11/18/16 14:13 Pulse Rate 62 11/18/16 14:13 Respiratory Rate 20 11/18/16 08:00 Blood Pressure 122/60 11/18/16 08:00 O2 Sat by Pulse Oximetry (%) 95 11/18/16 09:00 Constitutional: Yes: No Distress Eyes: Yes: Conjunctiva Clear Cardiovascular: Yes: Regular Rate and Rhythm, S1, S2 Respiratory: Yes: CTA Bilaterally Gastrointestinal: Yes: Normal Bowel Sounds, Soft. No: Tenderness Edema: No Labs: CBC, BMP 11/18/16 06:20 11/18/16 06:20 INR, PTT INR 1.32 (0.82-1.09) H 11/13/16 21:59 Assessment/Plan UTI/ Possible sepsis secondary to UTI- ESBL Altered mental status- improved continue ertapenem - D/C after tomorrow's dose Contact precautions
[2016-11-19] MEDS: GEMFIBROZIL 600 MG TABLET (FP) PO SCH ×2 (06:53→16:47)
[2016-11-19] MEDS: INSULIN SLIDING SCALE (NOVOLOG) 1 VIAL SQ SCH ×4 (06:54→21:04)
[2016-11-19] MEDS ORDERED: INSULIN (NOVOLOG) ASPART 100 UNITS/ML 10ML VIAL ONE ×3 (06:59→20:54)
--- NOTE | 2016-11-19 08:17 | PN ---
Progress Note, Physician History of Present Illness: IN BED CONFUSION NO COMPLAINTS - Current Medication List Current Medications: Active Medications Acetaminophen (Tylenol -) 650 mg PO Q4H PRN PRN Reason: FEVER OR PAIN Last Admin: 11/16/16 06:18 Dose: 650 mg Amlodipine Besylate (Norvasc -) 10 mg PO DAILY [facility] Last Admin: 11/18/16 09:21 Dose: 10 mg Apixaban (Eliquis -) 5 mg PO BID [facility] Last Admin: 11/18/16 22:35 Dose: 5 mg Benzocaine/Menthol (Cepacol Lozenge -) 1 each MM PRN PRN PRN Reason: SORE THROAT Gemfibrozil (Lopid -) 600 mg PO BID@0700,1630 [facility] Last Admin: 11/19/16 06:53 Dose: 600 mg Ertapenem 0.5 gm/ Sodium (Chloride) 50 mls @ 100 mls/hr IVPB DAILY [facility] Last Admin: 11/18/16 09:20 Dose: 100 mls/hr Insulin Aspart (Novolog Vial Sliding Scale -) 1 vial SQ ACHS [facility] PRN Reason: Protocol Last Admin: 11/19/16 06:54 Dose: 4 units Isosorbide Mononitrate (Imdur -) 30 mg PO DAILY [facility] Last Admin: 11/18/16 09:21 Dose: 30 mg Losartan Potassium (Cozaar -) 50 mg PO DAILY [facility] Last Admin: 11/18/16 09:21 Dose: 50 mg Metoprolol Succinate (Toprol Xl -) 50 mg PO BID [facility] Last Admin: 11/18/16 22:32 Dose: 50 mg Nitroglycerin (Nitrostat -) 0.4 mg SL PRN PRN PRN Reason: FOR CHEST PAIN Last Admin: 11/16/16 16:07 Dose: 0.4 mg Non-Formulary Medication (Colesevelam Hcl [Welchol]) 625 mg PO TID [facility] Last Admin: 11/14/16 06:16 Dose: Not Given Pantoprazole Sodium (Protonix -) 20 mg PO DAILY [facility] Last Admin: 11/18/16 09:21 Dose: 20 mg Ranolazine (Ranexa -) 500 mg PO BID [facility] Last Admin: 11/18/16 22:32 Dose: 500 mg Tamsulosin HCl (Flomax -) 0.4 mg PO DAILY@0830 [facility] Last Admin: 11/18/16 09:20 Dose: 0.4 mg Zinc Acetate/Diphenhydramine (Benadryl 2% Cream) 1 applic TP BID [facility] Last Admin: 11/18/16 22:27 Dose: 1 applic - Objective Vital Signs: Vital Signs Temperature 97.6 F 11/19/16 02:05 Pulse Rate 63 11/19/16 02:05 Respiratory Rate 18 11/19/16 02:05 Blood Pressure 126/72 11/19/16 02:05 O2 Sat by Pulse Oximetry (%) 95 11/18/16 21:00 Cardiovascular: Yes: S1, S2 Respiratory: Yes: Regular, CTA Bilaterally Gastrointestinal: Yes: Normal Bowel Sounds, Soft. No: Tenderness Edema: No Neurological: Yes: Alert, Confusion Labs: CBC, BMP 11/18/16 06:20 11/18/16 06:20 INR, PTT INR 1.32 (0.82-1.09) H 11/13/16 21:59 Problem List - Problems (1) Chest pain Code(s): R07.9 - CHEST PAIN, UNSPECIFIED Qualifiers: Chest pain type: unspecified Qualified Code(s): R07.9 - Chest pain, unspecified (2) CAD (coronary artery disease) Code(s): I25.10 - ATHSCL HEART DISEASE OF [place] CORONARY ARTERY W/O ANG PCTRS Qualifiers: Coronary Disease-Associated Artery/Lesion type: unspecified vessel or lesion type (3) Hyperlipidemia Code(s): E78.5 - HYPERLIPIDEMIA, UNSPECIFIED Qualifiers: Hyperlipidemia type: other hyperlipidemia Qualified Code(s): E78.4 - Other hyperlipidemia (4) UTI (urinary tract infection) Code(s): N39.0 - URINARY TRACT INFECTION, SITE NOT SPECIFIED Qualifiers: Urinary tract infection type: acute cystitis (5) 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 Code(s): E11.9 - TYPE 2 DIABETES MELLITUS WITHOUT COMPLICATIONS Qualifiers: 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 type: type 2 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 complication status: without complication 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 joint terminal attack controller insulin use: without detention use Qualified Code(s): E11.9 - Type 2 diabetes mellitus without complications (6) Hematuria Code(s): R31.9 - HEMATURIA, UNSPECIFIED (7) Afib Code(s): I48.91 - UNSPECIFIED ATRIAL FIBRILLATION Qualifiers: Atrial fibrillation type: paroxysmal Qualified Code(s): I48.0 - Paroxysmal atrial fibrillation Assessment/Plan - Problems (1) Acute ischemic stroke Assessment/Plan: MRI noted MRA done report noted eliquis one episode of hematuria h/h ok- on eliquis Code(s): I63.9 - CEREBRAL INFARCTION, UNSPECIFIED (2) Hematuria Assessment/Plan: urology eval noted h/h stable elevated esosinophils interstitial nephritis abx to be changed by ID Code(s): R31.9 - HEMATURIA, UNSPECIFIED (3) Hyperlipidemia Assessment/Plan: continue current meds Code(s): E78.5 - HYPERLIPIDEMIA, UNSPECIFIED Qualifiers: Hyperlipidemia type: other hyperlipidemia Qualified Code(s): E78.4 - Other hyperlipidemia (4) ARF (acute renal failure) Assessment/Plan: renal on board Code(s): N17.9 - ACUTE KIDNEY FAILURE, UNSPECIFIED Qualifiers: Acute renal failure type: unspecified Qualified Code(s): N17.9 - Acute kidney failure, unspecified (5) 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 Assessment/Plan: sliding scale Code(s): E11.9 - TYPE 2 DIABETES MELLITUS WITHOUT COMPLICATIONS Qualifiers: 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 type: type 2 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 complication status: without complication 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 joint terminal attack controller insulin use: without detention use Qualified Code(s): E11.9 - Type 2 diabetes mellitus without complications (6) UTI (urinary tract infection) Assessment/Plan: iv abx per ID Microbiology 11/15/16 02:15 Urine - Urine Clean Catch Urine Culture - Final Escherichia Coli Esbl Risk Control Field Representative on contact isolation Code(s): N39.0 - URINARY TRACT INFECTION, SITE NOT SPECIFIED Qualifiers: Urinary tract infection type: acute cystitis (7) Forgetfulness Assessment/Plan: MRA with millicent noted MRI done shows right side acute parietal stroke eliquis restarted Code(s): R68.89 - OTHER GENERAL SYMPTOMS AND SIGNS (8) CAD (coronary artery disease) Assessment/Plan: continue cardiac meds on eliquis Code(s): I25.10 - ATHSCL HEART DISEASE OF [place] CORONARY ARTERY W/O ANG PCTRS Qualifiers: Coronary Disease-Associated Artery/Lesion type: unspecified vessel or lesion type dc planning--pt will need snf
[2016-11-19] MEDS ORDERED: PT OWN MED DRAWER 7, Y5N ONE ×2 (08:51→16:45)
[2016-11-19] MEDS: amLODIPine BESYLATE 10 MG TABLET (FP) PO SCH (09:10)
[2016-11-19] MEDS: LOSARTAN POTASSIUM 50 MG TABLET (FP) PO SCH (09:10)
[2016-11-19] MEDS: ISOSORBIDE MONONITRATE 30 MG TAB.SR.24H (FP) PO SCH (09:10)
[2016-11-19] MEDS: RANOLAZINE E.R. 500 MG TABLET (FP) PO SCH ×2 (09:10→21:03)
[2016-11-19] MEDS: METOPROLOL SUCCINATE 50 MG TAB.SR.24H (FP) PO SCH ×2 (09:10→21:03)
[2016-11-19] MEDS: PANTOPRAZOLE 20 MG TABLET (FP) PO SCH (09:10)
[2016-11-19] MEDS: TAMSULOSIN HCL 0.4 MG CAP.ER.24H (FP) PO SCH (09:10)
[2016-11-19] MEDS: APIXABAN 5 MG TABLET PO SCH ×2 (09:10→21:03)
--- NOTE | 2016-11-19 09:55 | PN ---
Progress Note, Physician History of Present Illness: Awake, alert Reports seeing blood in urine No c/o dysuria no suprapubic pain No fever/ chills - Current Medication List Current Medications: Active Medications Acetaminophen (Tylenol -) 650 mg PO Q4H PRN PRN Reason: FEVER OR PAIN Last Admin: 11/16/16 06:18 Dose: 650 mg Amlodipine Besylate (Norvasc -) 10 mg PO DAILY [facility] Last Admin: 11/19/16 09:10 Dose: 10 mg Apixaban (Eliquis -) 5 mg PO BID [facility] Last Admin: 11/19/16 09:10 Dose: 5 mg Benzocaine/Menthol (Cepacol Lozenge -) 1 each MM PRN PRN PRN Reason: SORE THROAT Gemfibrozil (Lopid -) 600 mg PO BID@0700,1630 [facility] Last Admin: 11/19/16 06:53 Dose: 600 mg Ertapenem 0.5 gm/ Sodium (Chloride) 50 mls @ 100 mls/hr IVPB DAILY [facility] Last Admin: 11/18/16 09:20 Dose: 100 mls/hr Insulin Aspart (Novolog Vial Sliding Scale -) 1 vial SQ ACHS [facility] PRN Reason: Protocol Last Admin: 11/19/16 06:54 Dose: 4 units Isosorbide Mononitrate (Imdur -) 30 mg PO DAILY [facility] Last Admin: 11/19/16 09:10 Dose: 30 mg Losartan Potassium (Cozaar -) 50 mg PO DAILY [facility] Last Admin: 11/19/16 09:10 Dose: 50 mg Metoprolol Succinate (Toprol Xl -) 50 mg PO BID [facility] Last Admin: 11/19/16 09:10 Dose: 50 mg Nitroglycerin (Nitrostat -) 0.4 mg SL PRN PRN PRN Reason: FOR CHEST PAIN Last Admin: 11/16/16 16:07 Dose: 0.4 mg Non-Formulary Medication (Colesevelam Hcl [Welchol]) 625 mg PO TID [facility] Last Admin: 11/14/16 06:16 Dose: Not Given Pantoprazole Sodium (Protonix -) 20 mg PO DAILY [facility] Last Admin: 11/19/16 09:10 Dose: 20 mg Ranolazine (Ranexa -) 500 mg PO BID [facility] Last Admin: 11/19/16 09:10 Dose: 500 mg Tamsulosin HCl (Flomax -) 0.4 mg PO DAILY@0830 [facility] Last Admin: 11/19/16 09:10 Dose: 0.4 mg Zinc Acetate/Diphenhydramine (Benadryl 2% Cream) 1 applic TP BID [facility] Last Admin: 11/19/16 09:10 Dose: 1 applic - Objective Vital Signs: Vital Signs Temperature 97.4 F L 11/19/16 08:00 Pulse Rate 66 11/19/16 08:00 Respiratory Rate 18 11/19/16 08:00 Blood Pressure 124/60 11/19/16 08:00 O2 Sat by Pulse Oximetry (%) 95 11/18/16 21:00 Constitutional: Yes: No Distress Cardiovascular: Yes: Regular Rate and Rhythm, S1, S2 Respiratory: Yes: CTA Bilaterally Gastrointestinal: Yes: Normal Bowel Sounds, Soft. No: Tenderness Edema: No Labs: CBC, BMP 11/18/16 06:20 11/18/16 06:20 INR, PTT INR 1.32 (0.82-1.09) H 11/13/16 21:59 Assessment/Plan UTI/ Possible sepsis secondary to UTI- ESBL Altered mental status- improved continue ertapenem - D/C after today's dose, observe Contact precautions
[2016-11-19] MEDS: ERTAPENEM SODIUM 0.5 GM in SODIUM CHLORIDE 50 ML IVPB SCH (10:21)
--- NOTE | 2016-11-19 11:59 | PN ---
Progress Note, Physician History of Present Illness: events noted Chart reviewed seen on kat floor No distress MRI result noted and discussed with the patient No weakness no speech problem no numbness On Elliquis bid - Current Medication List Current Medications: Active Medications Acetaminophen (Tylenol -) 650 mg PO Q4H PRN PRN Reason: FEVER OR PAIN Last Admin: 11/16/16 06:18 Dose: 650 mg Amlodipine Besylate (Norvasc -) 10 mg PO DAILY [facility] Last Admin: 11/19/16 09:10 Dose: 10 mg Apixaban (Eliquis -) 5 mg PO BID [facility] Last Admin: 11/19/16 09:10 Dose: 5 mg Benzocaine/Menthol (Cepacol Lozenge -) 1 each MM PRN PRN PRN Reason: SORE THROAT Gemfibrozil (Lopid -) 600 mg PO BID@0700,1630 [facility] Last Admin: 11/19/16 06:53 Dose: 600 mg Ertapenem 0.5 gm/ Sodium (Chloride) 50 mls @ 100 mls/hr IVPB DAILY [facility] Last Admin: 11/19/16 10:21 Dose: 100 mls/hr Insulin Aspart (Novolog Vial Sliding Scale -) 1 vial SQ ACHS [facility] PRN Reason: Protocol Last Admin: 11/19/16 11:39 Dose: 6 units Isosorbide Mononitrate (Imdur -) 30 mg PO DAILY [facility] Last Admin: 11/19/16 09:10 Dose: 30 mg Losartan Potassium (Cozaar -) 50 mg PO DAILY [facility] Last Admin: 11/19/16 09:10 Dose: 50 mg Metoprolol Succinate (Toprol Xl -) 50 mg PO BID [facility] Last Admin: 11/19/16 09:10 Dose: 50 mg Nitroglycerin (Nitrostat -) 0.4 mg SL PRN PRN PRN Reason: FOR CHEST PAIN Last Admin: 11/16/16 16:07 Dose: 0.4 mg Non-Formulary Medication (Colesevelam Hcl [Welchol]) 625 mg PO TID [facility] Last Admin: 11/14/16 06:16 Dose: Not Given Pantoprazole Sodium (Protonix -) 20 mg PO DAILY [facility] Last Admin: 11/19/16 09:10 Dose: 20 mg Ranolazine (Ranexa -) 500 mg PO BID [facility] Last Admin: 11/19/16 09:10 Dose: 500 mg Tamsulosin HCl (Flomax -) 0.4 mg PO DAILY@0830 [facility] Last Admin: 11/19/16 09:10 Dose: 0.4 mg Zinc Acetate/Diphenhydramine (Benadryl 2% Cream) 1 applic TP BID [facility] Last Admin: 11/19/16 09:10 Dose: 1 applic - Objective Vital Signs: Vital Signs Temperature 97.4 F L 11/19/16 08:00 Pulse Rate 66 11/19/16 08:00 Respiratory Rate 18 11/19/16 08:00 Blood Pressure 124/60 11/19/16 08:00 O2 Sat by Pulse Oximetry (%) 95 11/18/16 21:00 Constitutional: Yes: Well Nourished Eyes: Yes: WNL HENT: Yes: WNL Neurological: Yes: Alert, Oriented, Cran Nerves II-XII Intact ...Motor Strength: WNL Labs: CBC, BMP 11/18/16 06:20 11/18/16 06:20 INR, PTT INR 1.32 (0.82-1.09) H 11/13/16 21:59 Problem List - Problems (1) Acute ischemic stroke Code(s): I63.9 - CEREBRAL INFARCTION, UNSPECIFIED Assessment/Plan Very tiny lacunar stroke on MRI No clinical correlate to notify On AC 1 .Continue Elliqus 2. Stoke education - Tight BP control - smoking cessation - weight loss - Statin 3. Suggest home with VNS 4. Fall precautions 5. Follow up with neurology in two weeks No need for tele bed
--- NOTE | 2016-11-19 14:04 | PN ---
Progress Note (short form) - Note Progress Note: Renal Follow up for CKD PT seen and examined at the bedside no complaints denies any sob, chest pain, abd pain Vital Signs Temperature 97.8 F 11/19/16 13:47 Pulse Rate 63 11/19/16 13:47 Respiratory Rate 18 11/19/16 08:00 Blood Pressure 126/63 11/19/16 13:47 O2 Sat by Pulse Oximetry (%) 97 11/19/16 09:00 Intake & Output 11/16/16 11/17/16 11/18/16 11/19/16 23:59 23:59 23:59 23:59 Intake Total 305 743 8736 700 Output Total 500 Balance 180 900 830 700 Gen: NAD, awake and alert CVS: RRR, No M/R Lungs: CTA, no rales or wheeze Abd: soft NT/ND No rebound or guarding. Ext: No edema, clubbing or cyanosis CBC, BMP 11/18/16 06:20 11/18/16 06:20 Current Medications Acetaminophen (Tylenol -) 650 mg PO Q4H PRN PRN Reason: FEVER OR PAIN Last Admin: 11/16/16 06:18 Dose: 650 mg Amlodipine Besylate (Norvasc -) 10 mg PO DAILY [facility] Last Admin: 11/19/16 09:10 Dose: 10 mg Apixaban (Eliquis -) 5 mg PO BID [facility] Last Admin: 11/19/16 09:10 Dose: 5 mg Benzocaine/Menthol (Cepacol Lozenge -) 1 each MM PRN PRN PRN Reason: SORE THROAT Gemfibrozil (Lopid -) 600 mg PO BID@0700,1630 [facility] Last Admin: 11/19/16 06:53 Dose: 600 mg Insulin Aspart (Novolog Vial Sliding Scale -) 1 vial SQ ACHS [facility] PRN Reason: Protocol Last Admin: 11/19/16 11:39 Dose: 6 units Isosorbide Mononitrate (Imdur -) 30 mg PO DAILY [facility] Last Admin: 11/19/16 09:10 Dose: 30 mg Losartan Potassium (Cozaar -) 50 mg PO DAILY [facility] Last Admin: 11/19/16 09:10 Dose: 50 mg Metoprolol Succinate (Toprol Xl -) 50 mg PO BID [facility] Last Admin: 11/19/16 09:10 Dose: 50 mg Nitroglycerin (Nitrostat -) 0.4 mg SL PRN PRN PRN Reason: FOR CHEST PAIN Last Admin: 11/16/16 16:07 Dose: 0.4 mg Non-Formulary Medication (Colesevelam Hcl [Welchol]) 625 mg PO TID [facility] Last Admin: 11/14/16 06:16 Dose: Not Given Pantoprazole Sodium (Protonix -) 20 mg PO DAILY [facility] Last Admin: 11/19/16 09:10 Dose: 20 mg Ranolazine (Ranexa -) 500 mg PO BID [facility] Last Admin: 11/19/16 09:10 Dose: 500 mg Tamsulosin HCl (Flomax -) 0.4 mg PO DAILY@0830 [facility] Last Admin: 11/19/16 09:10 Dose: 0.4 mg Zinc Acetate/Diphenhydramine (Benadryl 2% Cream) 1 applic TP BID [facility] Last Admin: 11/19/16 09:10 Dose: 1 applic A/P 71 year old Gentleman with PMhx of CAD s/p recent NSTEMI, DM Type 2, Hypertension, Hyperlipidemia, Nephrolithiasis (uric acid stones), BPH presents with complaints of hematuria and lower abd pain + increasing forgetfullness and found to have Cr of 1.4. #Acute on Chronic Renal Insufficiency with hematuria with hx of nephrolithiasis Renal US w/o hydronephrosis, Bladder wall was thickened. No significant PVR Renal function stable no new labs today #Hyponateremia Repeat BMP today serum osmolarity WNL urine OSM elevated, Urien Na high continue fluid restriction check lipid profile in AM check TSH, Cortisol #Forgetfulness/confusion with acute and old CVA's seen on MRI MRI/MRA of the head and neck performed Neurology follow up #Hypertension Continue Losartan and Amlodipine Armando Sparks DO
[2016-11-19 16:13] LABS: CALCIUM 8.8 mg/dL (8.5-10.1); CREATININE 1.4 mg/dL (0.7-1.3)
--- NOTE | 2016-11-19 17:14 | PN ---
Progress Note, Physician History of Present Illness: No complaints of chest pain or dyspnea. - Current Medication List Current Medications: Active Medications Acetaminophen (Tylenol -) 650 mg PO Q4H PRN PRN Reason: FEVER OR PAIN Last Admin: 11/16/16 06:18 Dose: 650 mg Amlodipine Besylate (Norvasc -) 10 mg PO DAILY [facility] Last Admin: 11/19/16 09:10 Dose: 10 mg Apixaban (Eliquis -) 5 mg PO BID [facility] Last Admin: 11/19/16 09:10 Dose: 5 mg Benzocaine/Menthol (Cepacol Lozenge -) 1 each MM PRN PRN PRN Reason: SORE THROAT Gemfibrozil (Lopid -) 600 mg PO BID@0700,1630 [facility] Last Admin: 11/19/16 16:47 Dose: 600 mg Insulin Aspart (Novolog Vial Sliding Scale -) 1 vial SQ ACHS [facility] PRN Reason: Protocol Last Admin: 11/19/16 16:47 Dose: 4 units Isosorbide Mononitrate (Imdur -) 30 mg PO DAILY [facility] Last Admin: 11/19/16 09:10 Dose: 30 mg Losartan Potassium (Cozaar -) 50 mg PO DAILY [facility] Last Admin: 11/19/16 09:10 Dose: 50 mg Metoprolol Succinate (Toprol Xl -) 50 mg PO BID [facility] Last Admin: 11/19/16 09:10 Dose: 50 mg Nitroglycerin (Nitrostat -) 0.4 mg SL PRN PRN PRN Reason: FOR CHEST PAIN Last Admin: 11/16/16 16:07 Dose: 0.4 mg Non-Formulary Medication (Colesevelam Hcl [Welchol]) 625 mg PO TID [facility] Last Admin: 11/14/16 06:16 Dose: Not Given Pantoprazole Sodium (Protonix -) 20 mg PO DAILY [facility] Last Admin: 11/19/16 09:10 Dose: 20 mg Ranolazine (Ranexa -) 500 mg PO BID [facility] Last Admin: 11/19/16 09:10 Dose: 500 mg Tamsulosin HCl (Flomax -) 0.4 mg PO DAILY@0830 [facility] Last Admin: 11/19/16 09:10 Dose: 0.4 mg Zinc Acetate/Diphenhydramine (Benadryl 2% Cream) 1 applic TP BID [facility] Last Admin: 11/19/16 09:10 Dose: 1 applic - Objective Vital Signs: Vital Signs Temperature 97.8 F 11/19/16 13:47 Pulse Rate 63 11/19/16 13:47 Respiratory Rate 18 11/19/16 08:00 Blood Pressure 126/63 11/19/16 13:47 O2 Sat by Pulse Oximetry (%) 97 11/19/16 09:00 Constitutional: Yes: No Distress, Calm Neck: Yes: Supple Cardiovascular: Yes: Regular Rate and Rhythm Respiratory: Yes: Regular, CTA Bilaterally Gastrointestinal: Yes: Normal Bowel Sounds, Soft Edema: No Labs: CBC, BMP 11/18/16 06:20 11/19/16 15:00 INR, PTT INR 1.32 (0.82-1.09) H 11/13/16 21:59 Problem List - Problems (1) CAD (coronary artery disease) Code(s): I25.10 - ATHSCL HEART DISEASE OF [place] CORONARY ARTERY W/O ANG PCTRS Qualifiers: Coronary Disease-Associated Artery/Lesion type: unspecified vessel or lesion type (2) Confused Code(s): R41.0 - DISORIENTATION, UNSPECIFIED (3) Forgetfulness Code(s): R68.89 - OTHER GENERAL SYMPTOMS AND SIGNS (4) ARF (acute renal failure) Code(s): N17.9 - ACUTE KIDNEY FAILURE, UNSPECIFIED Qualifiers: Acute renal failure type: unspecified Qualified Code(s): N17.9 - Acute kidney failure, unspecified (5) Bladder stones Code(s): N21.0 - CALCULUS IN BLADDER (6) Demand ischemia Code(s): I24.8 - OTHER FORMS OF ACUTE ISCHEMIC HEART DISEASE (7) 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 Code(s): E11.9 - TYPE 2 DIABETES MELLITUS WITHOUT COMPLICATIONS Qualifiers: 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 type: type 2 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 complication status: without complication 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 mill roll rewinder insulin use: without mill roll rewinder use Qualified Code(s): E11.9 - Type 2 diabetes mellitus without complications (8) HTN (hypertension) Code(s): I10 - ESSENTIAL (PRIMARY) HYPERTENSION Qualifiers: Hypertension type: essential hypertension Qualified Code(s): I10 - Essential (primary) hypertension (9) Hematuria Code(s): R31.9 - HEMATURIA, UNSPECIFIED (10) History of cardiac radiofrequency ablation (RFA) Code(s): Z98.89 - OTHER SPECIFIED POSTPROCEDURAL STATES * DO NOT USE * (11) Hypercholesteremia Code(s): E78.0 - PURE HYPERCHOLESTEROLEMIA * DO NOT USE * (12) Obstructive sleep apnea of adult Code(s): G47.33 - OBSTRUCTIVE SLEEP APNEA (ADULT) (PEDIATRIC) (13) Paroxysmal a-fib Code(s): I48.0 - PAROXYSMAL ATRIAL FIBRILLATION (14) S/P coronary artery stent placement Code(s): Z95.5 - PRESENCE OF CORONARY ANGIOPLASTY IMPLANT AND GRAFT (15) UTI (urinary tract infection) Code(s): N39.0 - URINARY TRACT INFECTION, SITE NOT SPECIFIED Qualifiers: Urinary tract infection type: acute cystitis (16) Acute ischemic stroke Code(s): I63.9 - CEREBRAL INFARCTION, UNSPECIFIED Assessment/Plan 1. Acute right parietal stroke 2. Toxic metabolic encephelopathy due to UTI - ESBL 3. Resolved hematuria post open cystostomy for stone removal 4. CAD post multi-vessel PCI stent - demand ischemia 5. Diastolic LV dysfunction with chronic class I NYHA classification LV failure 6. Paroxysmal atrial fibrillation previous history of RFA, [id number] score of 5 7. HTN 8. DM 9. Hyperlipidemia 10. History of KATJA 11. Acute on CKD 12. Anemia 13. History of old cerebellar stroke PLAN: 1. Complete antibiotic course per ID 2. Continue Toprol XL 50 mg BID, Lopid 600 mg BID, Imdur 30 mg QD, Welchol and Ranexa 500 mg BID 3. Continue Amlodipine 10 mg QD and Losartan 50 mg QD 4. Continue Eliquis 5 mg BID 5. D/c planning
[2016-11-20] MEDS: GEMFIBROZIL 600 MG TABLET (FP) PO SCH ×2 (06:40→16:47)
[2016-11-20] MEDS: INSULIN SLIDING SCALE (NOVOLOG) 1 VIAL SQ SCH ×4 (06:40→21:27)
[2016-11-20 08:20] LABS: BASOPHIL 0.7 % (0-2.0); EOSINOPHIL 16.9 % (0-4.5); MCH 29.6 pg (25.7-33.7); MCHC 33.5 g/dl (32.0-35.9); MEAN CELL VOLUME 88.4 fl (80-96); MEAN PLT VOLUME 8.7 fl (7.5-11.1); NEUTROPHILS 32.4 % (42.8-82.8); PLATELET COUNT 443 K/MM3 (134-434); RDW 13.8 % (11.9-15.9); WHITE BLOOD COUNT 6.4 K/mm3 (4.0-10.0)
[2016-11-20 08:42] LABS: CALCIUM 8.7 mg/dL (8.5-10.1); CREATININE 1.4 mg/dL (0.7-1.3)
[2016-11-20 08:52] LABS: THYROID STIMULATING HORMONE 3.55 uIU/ml (0.358-3.74)
--- NOTE | 2016-11-20 09:00 | CONS ---
PHYSICAL MEDICINE REHABILITATION CONSULTATION DATE OF ADMISSION: 11/16/2016 DATE OF CONSULTATION: 11/20/2016 HISTORY OF PRESENT ILLNESS: The patient is a 71-year-old man with past medical history of a diabetes and memory deficits who was admitted for increasing forgetfulness. Patient evidently had an admission for diabetic ketoacidosis a few months ago. He has become increasingly forgetful. He lives with his , but she spends a portion of her day working. Patient did undergo neurologic evaluation including an MRI which showed a small right parietal infarct. Apparently, he has no focal deficits. He did undergo MRA which showed some stenosis in the vertebral arteries. He was evaluated by physical therapy, able to stand and ambulate in the room with a straight cane at a supervision level. Patient states that he carries the cane, but does not necessarily need the cane. He denies any numbness/ tingling in his upper or lower extremities or any isolated weakness. He did undergo hip surgery after fracturing his right femur he states multiple times, subsequently getting a joint replacement with some leg-length discrepancy. Patient also has a history of coronary artery disease and atrial fibrillation. He is now on Eliquis and is seen in rehabilitation evaluation. REVIEW OF PAST MEDICAL AND SURGICAL HISTORY: As above. History of [id number] diabetes, coronary artery disease status post stent, hypertension, hyperlipidemia, bladder stone removal, episode of diabetic ketoacidosis, atrial fibrillation, obstructive sleep apnea syndrome, benign prostatic hypertrophy. He is status post appendectomy, ORIF of right ankle fracture, and possible bipolar hemiarthroplasty or right total hip replacement following fracture. SOCIAL HISTORY: He denies any alcohol or tobacco use. He did smoke previously, but quit in 1995. He states he lives in an apartment without any stairs and again carries a cane, but otherwise states independent. Current function as above. REVIEW OF SYSTEMS: Denies any headache, any lightheadedness, dizziness, any blurry vision, double vision, any nausea, vomiting, difficulty swallowing, difficulty chewing, cough with swallow, any chest pain, shortness of breath, fever, chills, bowel/bladder change such as dysuria, polyuria, frequency, incontinence. He has no numbness/tingling, no joint arthralgias, no fever/chills, no weight loss or weight gain. REVIEW OF BLOOD WORK: He did have some mild anemia on admission, hemoglobin 9.6 on November 03, which was stable on repeat November 18 with normal WBC 7.5 stable and platelet count over 400. His chemistry showed elevated BUN of 30, creatinine 1.5 on November 13. Otherwise, normal chemistry. Repeat blood work on November 19 shows persistent elevation BUN 25, creatinine 1.4, and otherwise normal chemistry. PHYSICAL EXAMINATION: General: On examination, a very friendly man. He seems slightly confused, but in no acute distress. He is awake, alert, cooperative. HEENT: He is normocephalic and atraumatic. His extraocular muscles appear intact. Neck: Supple. Extremities: Without any pitting edema or calf tenderness. Neuromuscular: He is awake, alert, oriented to person and month as well as place, but not the exact date. Cranial nerves 2-12 appear grossly intact. He has got some mild arthritic changes in his hands, which are not limiting. Good motor power throughout his upper and lower extremities with minimal hip girdle weakness, 4+ to 5- out of 5. He can stand without using his upper extremities for assist. He ambulates slow but steady using a straight cane, but can also walk without assistive device. He has normal sensation to light touch, symmetric reflexes, downgoing toes. No gross arthritic change in the lower extremities and good range of motion. OVERALL IMPRESSION: 1. Minimal deficits mobility, activities of daily living. 2. Right parietal lacunar infarct. 3. Vertebral artery stenosis. 4. Memory deficits. 5. Diabetes with episode of diabetic ketoacidosis. 6. Chronic kidney disease. 7. Atrial fibrillation, on Eliquis. 8. Coronary artery disease status post stent. 9. Hypertension. 10. Hyperlipidemia. 11. Sleep apnea. 12. History of right hip fracture or multiple fractures status post bipolar hemiarthroplasty or total joint replacement with leg-length discrepancy. PLANS AND SUGGESTIONS: 1. Continue physical therapy while in the hospital. 2. Out of bed to chair. 3. Safety fall precautions. 4. Cardiac precautions. 5. On Eliquis. No further DVT prophylaxis needed. 6. Patient may require supervision on discharge. 7. May benefit from outpatient rehabilitation, but his main issue may be safety awareness due to memory deficits. Thank you for this referral. CHANDLER NAPIER M.D. SHILO/[id number]
[2016-11-20] MEDS: RANOLAZINE E.R. 500 MG TABLET (FP) PO SCH ×2 (09:24→21:14)
[2016-11-20] MEDS: APIXABAN 5 MG TABLET PO SCH ×2 (09:24→21:14)
[2016-11-20] MEDS: PANTOPRAZOLE 20 MG TABLET (FP) PO SCH (09:25)
[2016-11-20] MEDS: METOPROLOL SUCCINATE 50 MG TAB.SR.24H (FP) PO SCH ×2 (09:25→21:14)
[2016-11-20] MEDS: amLODIPine BESYLATE 10 MG TABLET (FP) PO SCH (09:25)
[2016-11-20] MEDS: LOSARTAN POTASSIUM 50 MG TABLET (FP) PO SCH (09:25)
[2016-11-20] MEDS: ISOSORBIDE MONONITRATE 30 MG TAB.SR.24H (FP) PO SCH (09:25)
[2016-11-20] MEDS: TAMSULOSIN HCL 0.4 MG CAP.ER.24H (FP) PO SCH (09:25)
--- NOTE | 2016-11-20 10:27 | DS ---
Physical Examination Vital Signs: Vital Signs Temperature 97.7 F 11/20/16 06:10 Pulse Rate 67 11/20/16 06:10 Respiratory Rate 19 11/20/16 06:10 Blood Pressure 110/61 11/20/16 06:10 O2 Sat by Pulse Oximetry (%) 98 11/19/16 21:00 Constitutional: Yes: Calm Neck: Yes: Trachea Midline Cardiovascular: Yes: Regular Rate and Rhythm Respiratory: Yes: CTA Bilaterally Gastrointestinal: Yes: Normal Bowel Sounds, Soft Edema: No Neurological: Yes: Alert, Oriented Labs: CBC, BMP 11/20/16 07:00 11/20/16 07:00 Discharge Summary Reason For Visit: CAD/CONFUSED/HYPERLIPIDEMIA Current Active Problems Acute ischemic stroke (Acute) Afib (Acute) CAD (coronary artery disease) (Acute) Confused (Acute) Forgetfulness (Acute) Hyperlipidemia (Acute) UTI (urinary tract infection) (Acute) Hospital Course: Chief Complaint: sent in by pcp History of Present Illness: The patient is a 71-year-old male, with a significant past medical history of NIDDM, stents, hypertension, hyperlipidemia, and bladder stone removal, who was sent to the emergency department by his PCP, Dr. Reyes, due to increased forgetfulness for about a year. As per PCP, the patient is becoming more and more forgetful, is non-compliant with his diabetes medication, and thus she is concerned that he will not be able to readily take care of himself. As per , the patient had one episode of DKA about 3 months ago, and after being discharged has becoming increasingly forgetful. The PCP reports the patient lives at home with his , but the spends a portion of her day working. The patient reports s/p has bladder stone removal he had a catheter inserted. After catheter removal a week ago, the patient reports episodes of hematuria. The patient denies dysuria, frequency, and urgency. The patient denies nausea, vomiting, diarrhea, and constipation. The patient denies fever, chills, cough, headache, or dizziness. Allergies: Xfydogx-Ips-OlK reductase inhibitor, lactose Past Surgical History: appendectomy, cholycystectomy, bladder stone removal Social History: Former smoker(quit 1995). Denies alcohol or drug use. PCP: Dr. Loni Reyes ([phone]) per patient he feels fine and says doctor sent him bc his blood count was low. History Source: Patient, Medical Record - Past Medical History Cardiovascular: Yes: AFIB (not on AC), CAD (with stent), HTN, Hyperlipdemia Pulmonary: Yes: Sleep Apnea Hepatobiliary: Yes: Cholelithiasis Renal/: Yes: BPH, Renal Calculi MRI shows acute right parietal infarct ambulating with cane neck MRA sows 50% stenosis patient on eliquis afib on BB and eliquis CAD ranexa ,BB, norvasc, losartan HLP on lopid and welchol- lipid profile is improved form previous when TG was 215 now 180 range, LDL is lower 135 now 115- will increase welchol dose to 1875 bid no statin as already on these two lipid medications hematuria with stone removal dc home with VNS Home PT cough: trial of zantac and zyrtec, less likley related to ARB - Instructions Diet, Activity, Other Instructions: FU with PMD as outpatient zantac 150mg po daily cetrizine 10mg po daily Referrals: Loni Reyes [Primary Care Provider] - 1 Week Kemar Mir MD [Staff Physician] - 2 Weeks (stroke follow up) Disposition: VNS/HOME HEALTH CARE - Home Medications Comprehensive Discharge Medication List: Ambulatory Orders Amlodipine Besylate [Norvasc -] 10 mg PO DAILY 12/20/15 Colesevelam HCl [Welchol] 625 mg PO TID 12/20/15 Tamsulosin HCl [Flomax -] 0.4 mg PO DAILY #10 capsule 06/01/16 Gemfibrozil [Lopid] 600 mg PO BID 10/14/16 Losartan Potassium [Cozaar -] 50 mg PO DAILY 10/14/16 Nitroglycerin [Nitrostat] 0.4 mg SL PRN PRN 10/14/16 Omeprazole 20 mg PO DAILY 10/14/16 Potassium Citrate [Potassium Citrate ER] 15 meq PO DAILY 10/14/16 Insulin (Levemir) [Levemir Vial] 14 units SQ ASDIR #0 10/24/16 Phytonadione [Mephyton] 5 mg PO DAILY #1 tablet 10/24/16 Insulin Sliding Scale [Novolog Vial Sliding Scale -] 1 vial SQ BIDAC units 12/ 31/16 Isosorbide Mononitrate [Imdur -] 30 mg PO DAILY tab.sr.24h 11/01/16 Metoprolol Succinate [Toprol XL -] 50 mg PO DAILY #90 tab.sr.24h 11/01/16 Nitrofurantoin Macrocrystal [Macrodantin -] 50 mg PO Q6HPO #40 capsule 11/01/16 Ranolazine [Ranexa -] 500 mg PO BID tab 11/01/16
--- NOTE | 2016-11-20 10:42 | PN ---
Progress Note (short form) - Note Progress Note: patient already on lopid and welchol for HLD so no statin will be already as cannot take lopid and statin together Problem List - Problems (1) Acute ischemic stroke Code(s): I63.9 - CEREBRAL INFARCTION, UNSPECIFIED (2) Hematuria Code(s): R31.9 - HEMATURIA, UNSPECIFIED (3) Hyperlipidemia Code(s): E78.5 - HYPERLIPIDEMIA, UNSPECIFIED Qualifiers: Hyperlipidemia type: other hyperlipidemia Qualified Code(s): E78.4 - Other hyperlipidemia (4) ARF (acute renal failure) Code(s): N17.9 - ACUTE KIDNEY FAILURE, UNSPECIFIED Qualifiers: Acute renal failure type: unspecified Qualified Code(s): N17.9 - Acute kidney failure, unspecified (5) 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 Code(s): E11.9 - TYPE 2 DIABETES MELLITUS WITHOUT COMPLICATIONS Qualifiers: 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 type: type 2 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 complication status: without complication 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 rat exterminator insulin use: without rat exterminator use Qualified Code(s): E11.9 - Type 2 diabetes mellitus without complications (6) UTI (urinary tract infection) Code(s): N39.0 - URINARY TRACT INFECTION, SITE NOT SPECIFIED Qualifiers: Urinary tract infection type: acute cystitis (7) Forgetfulness Code(s): R68.89 - OTHER GENERAL SYMPTOMS AND SIGNS (8) CAD (coronary artery disease) Code(s): I25.10 - ATHSCL HEART DISEASE OF [place] CORONARY ARTERY W/O ANG PCTRS Qualifiers: Coronary Disease-Associated Artery/Lesion type: unspecified vessel or lesion type
--- NOTE | 2016-11-20 13:08 | PN ---
Progress Note, Physician Chief Complaint: Not in distress History of Present Illness: Patient was seen and examined. Awake and alert. Chart was reviewed Denies chest pain, SOB or palpitation - Current Medication List Current Medications: Active Medications Acetaminophen (Tylenol -) 650 mg PO Q4H PRN PRN Reason: FEVER OR PAIN Last Admin: 11/16/16 06:18 Dose: 650 mg Amlodipine Besylate (Norvasc -) 10 mg PO DAILY [facility] Last Admin: 11/20/16 09:25 Dose: 10 mg Apixaban (Eliquis -) 5 mg PO BID [facility] Last Admin: 11/20/16 09:24 Dose: 5 mg Benzocaine/Menthol (Cepacol Lozenge -) 1 each MM PRN PRN PRN Reason: SORE THROAT Gemfibrozil (Lopid -) 600 mg PO BID@0700,1630 [facility] Last Admin: 11/20/16 06:40 Dose: 600 mg Insulin Aspart (Novolog Vial Sliding Scale -) 1 vial SQ ACHS [facility] PRN Reason: Protocol Last Admin: 11/20/16 11:27 Dose: 8 units Isosorbide Mononitrate (Imdur -) 30 mg PO DAILY [facility] Last Admin: 11/20/16 09:25 Dose: 30 mg Losartan Potassium (Cozaar -) 50 mg PO DAILY [facility] Last Admin: 11/20/16 09:25 Dose: 50 mg Metoprolol Succinate (Toprol Xl -) 50 mg PO BID [facility] Last Admin: 11/20/16 09:25 Dose: 50 mg Nitroglycerin (Nitrostat -) 0.4 mg SL PRN PRN PRN Reason: FOR CHEST PAIN Last Admin: 11/16/16 16:07 Dose: 0.4 mg Non-Formulary Medication (Colesevelam Hcl [Welchol]) 625 mg PO TID [facility] Last Admin: 11/14/16 06:16 Dose: Not Given Pantoprazole Sodium (Protonix -) 20 mg PO DAILY [facility] Last Admin: 11/20/16 09:25 Dose: 20 mg Ranolazine (Ranexa -) 500 mg PO BID [facility] Last Admin: 11/20/16 09:24 Dose: 500 mg Tamsulosin HCl (Flomax -) 0.4 mg PO DAILY@0830 [facility] Last Admin: 11/20/16 09:25 Dose: 0.4 mg Zinc Acetate/Diphenhydramine (Benadryl 2% Cream) 1 applic TP BID [facility] Last Admin: 11/20/16 09:25 Dose: 1 applic - Objective Vital Signs: Vital Signs Temperature 97.5 F L 11/20/16 10:00 Pulse Rate 60 11/20/16 10:00 Respiratory Rate 2 L 11/20/16 10:00 Blood Pressure 116/52 11/20/16 10:00 O2 Sat by Pulse Oximetry (%) 98 11/19/16 21:00 Neck: Yes: Supple Cardiovascular: Yes: Regular Rate and Rhythm, S1, S2 Respiratory: Yes: Diminished Gastrointestinal: Yes: Normal Bowel Sounds, Soft. No: Tenderness Edema: No Labs: CBC, BMP 11/20/16 07:00 11/20/16 07:00 Problem List - Problems (1) Acute ischemic stroke Code(s): I63.9 - CEREBRAL INFARCTION, UNSPECIFIED (2) Afib Code(s): I48.91 - UNSPECIFIED ATRIAL FIBRILLATION Qualifiers: Atrial fibrillation type: paroxysmal Qualified Code(s): I48.0 - Paroxysmal atrial fibrillation (3) CAD (coronary artery disease) Code(s): I25.10 - ATHSCL HEART DISEASE OF [place] CORONARY ARTERY W/O ANG PCTRS Qualifiers: Coronary Disease-Associated Artery/Lesion type: unspecified vessel or lesion type (4) Hyperlipidemia Code(s): E78.5 - HYPERLIPIDEMIA, UNSPECIFIED Qualifiers: Hyperlipidemia type: other hyperlipidemia Qualified Code(s): E78.4 - Other hyperlipidemia (5) UTI (urinary tract infection) Code(s): N39.0 - URINARY TRACT INFECTION, SITE NOT SPECIFIED Qualifiers: Urinary tract infection type: acute cystitis (6) ARF (acute renal failure) Code(s): N17.9 - ACUTE KIDNEY FAILURE, UNSPECIFIED Qualifiers: Acute renal failure type: unspecified Qualified Code(s): N17.9 - Acute kidney failure, unspecified (7) Demand ischemia Code(s): I24.8 - OTHER FORMS OF ACUTE ISCHEMIC HEART DISEASE (8) 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 Code(s): E11.9 - TYPE 2 DIABETES MELLITUS WITHOUT COMPLICATIONS Qualifiers: 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 type: type 2 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 complication status: without complication 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 lobsterman insulin use: without correction use Qualified Code(s): E11.9 - Type 2 diabetes mellitus without complications (9) HTN (hypertension) Code(s): I10 - ESSENTIAL (PRIMARY) HYPERTENSION Qualifiers: Hypertension type: essential hypertension Qualified Code(s): I10 - Essential (primary) hypertension (10) Hematuria Code(s): R31.9 - HEMATURIA, UNSPECIFIED (11) History of cardiac radiofrequency ablation (RFA) Code(s): Z98.89 - OTHER SPECIFIED POSTPROCEDURAL STATES * DO NOT USE * (12) Hypercholesteremia Code(s): E78.0 - PURE HYPERCHOLESTEROLEMIA * DO NOT USE * (13) S/P coronary artery stent placement Code(s): Z95.5 - PRESENCE OF CORONARY ANGIOPLASTY IMPLANT AND GRAFT Assessment/Plan 1. Acute right parietal stroke 2. Toxic metabolic encephelopathy due to UTI - ESBL 3. Resolved hematuria post open cystostomy for stone removal 4. CAD post multi-vessel PCI stent - demand ischemia 5. Diastolic LV dysfunction with chronic class I NYHA classification LV failure 6. Paroxysmal atrial fibrillation previous history of RFA, [id number] score of 5 7. HTN 8. DM 9. Hyperlipidemia 10. History of KATJA 11. Acute on CKD 12. Anemia 13. History of old cerebellar stroke PLAN: 1. Antibiotic course 2. Continue Toprol XL, Lopid, Imdur, Welchol and Ranexa 3. Continue Amlodipine and Losartan 4. Continue Eliquis 5 mg BID Further plans are to follow Riley Brandt MD
--- NOTE | 2016-11-20 14:20 | PN ---
Progress Note (short form) - Note Progress Note: Renal Follow up for CKD PT seen and examined at the bedside reports continued hematuria no abd pain, dysuria Vital Signs Temperature 97.6 F 11/20/16 13:35 Pulse Rate 62 11/20/16 13:35 Respiratory Rate 2 L 11/20/16 10:00 Blood Pressure 118/50 11/20/16 13:35 O2 Sat by Pulse Oximetry (%) 98 11/19/16 21:00 Intake & Output 11/17/16 11/18/16 11/19/16 11/20/16 23:59 23:59 23:59 23:59 Intake Total 900 1330 1050 750 Output Total 500 Balance 645 547 1172 750 Gen: NAD, awake and alert CVS: RRR, No M/R Lungs: CTA, no rales or wheeze Abd: soft NT/ND No rebound or guarding. Ext: No edema, clubbing or cyanosis CBC, BMP 11/20/16 07:00 11/20/16 07:00 Current Medications Acetaminophen (Tylenol -) 650 mg PO Q4H PRN PRN Reason: FEVER OR PAIN Last Admin: 11/16/16 06:18 Dose: 650 mg Amlodipine Besylate (Norvasc -) 10 mg PO DAILY [facility] Last Admin: 11/20/16 09:25 Dose: 10 mg Apixaban (Eliquis -) 5 mg PO BID [facility] Last Admin: 11/20/16 09:24 Dose: 5 mg Benzocaine/Menthol (Cepacol Lozenge -) 1 each MM PRN PRN PRN Reason: SORE THROAT Gemfibrozil (Lopid -) 600 mg PO BID@0700,1630 [facility] Last Admin: 11/20/16 06:40 Dose: 600 mg Insulin Aspart (Novolog Vial Sliding Scale -) 1 vial SQ ACHS [facility] PRN Reason: Protocol Last Admin: 11/20/16 11:27 Dose: 8 units Isosorbide Mononitrate (Imdur -) 30 mg PO DAILY [facility] Last Admin: 11/20/16 09:25 Dose: 30 mg Losartan Potassium (Cozaar -) 50 mg PO DAILY [facility] Last Admin: 11/20/16 09:25 Dose: 50 mg Metoprolol Succinate (Toprol Xl -) 50 mg PO BID [facility] Last Admin: 11/20/16 09:25 Dose: 50 mg Nitroglycerin (Nitrostat -) 0.4 mg SL PRN PRN PRN Reason: FOR CHEST PAIN Last Admin: 11/16/16 16:07 Dose: 0.4 mg Non-Formulary Medication (Colesevelam Hcl [Welchol]) 625 mg PO TID [facility] Last Admin: 11/14/16 06:16 Dose: Not Given Pantoprazole Sodium (Protonix -) 20 mg PO DAILY [facility] Last Admin: 11/20/16 09:25 Dose: 20 mg Ranolazine (Ranexa -) 500 mg PO BID [facility] Last Admin: 11/20/16 09:24 Dose: 500 mg Tamsulosin HCl (Flomax -) 0.4 mg PO DAILY@0830 [facility] Last Admin: 11/20/16 09:25 Dose: 0.4 mg Zinc Acetate/Diphenhydramine (Benadryl 2% Cream) 1 applic TP BID [facility] Last Admin: 11/20/16 09:25 Dose: 1 applic A/P 71 year old Gentleman with PMhx of CAD s/p recent NSTEMI, DM Type 2, Hypertension, Hyperlipidemia, Nephrolithiasis (uric acid stones), BPH presents with complaints of hematuria and lower abd pain + increasing forgetfullness and found to have Cr of 1.4. #Acute on Chronic Renal Insufficiency with hematuria with hx of nephrolithiasis Renal US w/o hydronephrosis, Bladder wall was thickened. No significant PVR Renal function is stable #Hematuria UA today pt on eliquis Hgb is stable contact urology regarding need for follow up and repeat procedure #Hyponateremia resolved today d/c fluid restriction #Forgetfulness/confusion with acute and old CVA's seen on MRI Neurology follow up #Hypertension Continue Losartan and Amlodipine Armando Sparks DO
[2016-11-20 15:19] LABS: PH,URINE 6.5 (5.0-8.0); URINE APPEARANCE CLEAR; URINE BILIRUBIN 1+ (NEGATIVE); URINE COLOR DK. RED; URINE GLUCOSE (UA) 1+ (NEGATIVE); URINE KETONE TRACE (NEGATIVE); URINE UROBILINOGEN 0.2 E.U/dl E.U./dl (0.2-1.0)
[2016-11-20 15:21] LABS: URINE BLOOD 3+ (NEGATIVE); URINE LEUK ESTERASE 1+ (NEGATIVE); URINE NITRITE POSITIVE (NEGATIVE); URINE PROTEIN 2+ (NEGATIVE)
[2016-11-20 15:36] LABS: URINE MUCUS FEW; URINE RBC 4733 /hpf (0-3); URINE WBC 510 /hpf (3-5); YEAST MODERATE
[2016-11-20] MEDS ORDERED: INSULIN (NOVOLOG) ASPART 100 UNITS/ML 10ML VIAL ONE ×2 (16:40→17:42)
[2016-11-20] MEDS ORDERED: PT OWN MED DRAWER 7, Y5N ONE (21:10)
[2016-11-21] MEDS: INSULIN SLIDING SCALE (NOVOLOG) 1 VIAL SQ SCH ×4 (06:28→21:22)
[2016-11-21] MEDS: GEMFIBROZIL 600 MG TABLET (FP) PO SCH ×2 (06:28→16:33)
[2016-11-21] MEDS ORDERED: PT OWN MED DRAWER 7, Y5N ONE (09:27)
[2016-11-21] MEDS: TAMSULOSIN HCL 0.4 MG CAP.ER.24H (FP) PO SCH (09:28)
[2016-11-21] MEDS: APIXABAN 5 MG TABLET PO SCH ×2 (09:29→21:22)
[2016-11-21] MEDS: PANTOPRAZOLE 20 MG TABLET (FP) PO SCH (09:29)
[2016-11-21] MEDS: ISOSORBIDE MONONITRATE 30 MG TAB.SR.24H (FP) PO SCH (09:29)
[2016-11-21] MEDS: RANOLAZINE E.R. 500 MG TABLET (FP) PO SCH ×2 (09:29→21:23)
[2016-11-21] MEDS: amLODIPine BESYLATE 10 MG TABLET (FP) PO SCH (09:29)
[2016-11-21] MEDS: LOSARTAN POTASSIUM 50 MG TABLET (FP) PO SCH (09:29)
[2016-11-21] MEDS: METOPROLOL SUCCINATE 50 MG TAB.SR.24H (FP) PO SCH ×2 (09:29→21:23)
--- NOTE | 2016-11-21 10:22 | DS ---
Physical Examination Vital Signs: Vital Signs Temperature 97.6 F 11/21/16 08:00 Pulse Rate 61 11/21/16 08:00 Respiratory Rate 18 11/21/16 08:00 Blood Pressure 103/54 11/21/16 08:00 O2 Sat by Pulse Oximetry (%) 98 11/19/16 21:00 Cardiovascular: Yes: Regular Rate and Rhythm Respiratory: Yes: Regular, CTA Bilaterally Gastrointestinal: Yes: Normal Bowel Sounds, Soft Labs: CBC, BMP 11/20/16 07:00 11/20/16 07:00 Discharge Summary Reason For Visit: CAD/CONFUSED/HYPERLIPIDEMIA Current Active Problems Acute ischemic stroke (Acute) Afib (Acute) CAD (coronary artery disease) (Acute) Confused (Acute) Forgetfulness (Acute) Hyperlipidemia (Acute) UTI (urinary tract infection) (Acute) Hospital Course: The patient is a 71-year-old male, with a significant past medical history of NIDDM, stents, hypertension, hyperlipidemia, and bladder stone removal, who was sent to the emergency department by his PCP, Dr. Reyes, due to increased forgetfulness for about a year. As per PCP, the patient is becoming more and more forgetful, is non-compliant with his diabetes medication, and thus she is concerned that he will not be able to readily take care of himself. As per , the patient had one episode of DKA about 3 months ago, and after being discharged has becoming increasingly forgetful. The PCP reports the patient lives at home with his , but the spends a portion of her day working. The patient reports s/p has bladder stone removal he had a catheter inserted. After catheter removal a week ago, the patient reports episodes of hematuria. The patient denies dysuria, frequency, and urgency. The patient denies nausea, vomiting, diarrhea, and constipation. The patient denies fever, chills, cough, headache, or dizziness. Allergies: [id number] reductase inhibitor, lactose Past Surgical History: appendectomy, cholycystectomy, bladder stone removal Social History: Former smoker(quit 1995). Denies alcohol or drug use. PCP: Dr. Loni Reyes ([phone]) - Past Medical History Cardiovascular: Yes: AFIB (not on AC), CAD (with stent), HTN, Hyperlipdemia Pulmonary: Yes: Sleep Apnea Hepatobiliary: Yes: Cholelithiasis Renal/: Yes: BPH, Renal Calculi MRI shows acute right parietal infarct ambulating with cane neck MRA sows 50% stenosis patient on eliquis afib on BB and eliquis CAD ranexa ,BB, norvasc, losartan HLP on lopid and welchol- lipid profile is improved form previous when TG was 215 now 180 range, LDL is lower 135 now 115- will increase welchol dose to 1875 bid no statin as already on these two lipid medications hematuria with stone removal PT UNSTEADY WALKED 30 FEET--D/W PT SNF AND HE AGREES - Instructions Diet, Activity, Other Instructions: FU with PMD as outpatient to check liver function tests zantac 150mg po daily cetrizine 10mg po daily Referrals: Cheryl Zamora MD [Staff Physician] - 1 Week (to get blood work checked) Kemar Mir MD [Staff Physician] - 2 Weeks (stroke follow up) Loni Reyes [Primary Care Provider] - 1 Week - Home Medications Comprehensive Discharge Medication List: Ambulatory Orders Amlodipine Besylate [Norvasc -] 10 mg PO DAILY 12/20/15 Tamsulosin HCl [Flomax -] 0.4 mg PO DAILY #10 capsule 06/01/16 Gemfibrozil [Lopid] 600 mg PO BID 10/14/16 Losartan Potassium [Cozaar -] 50 mg PO DAILY 10/14/16 Nitroglycerin [Nitrostat] 0.4 mg SL PRN PRN 10/14/16 Omeprazole 20 mg PO DAILY 10/14/16 Insulin (Levemir) [Levemir Vial] 14 units SQ ASDIR #0 10/24/16 Isosorbide Mononitrate [Imdur -] 30 mg PO DAILY tab.sr.24h 11/01/16 Ranolazine [Ranexa -] 500 mg PO BID tab 11/01/16 Apixaban [Eliquis -] 5 mg PO BID #30 tablet 11/20/16 Atorvastatin Ca [Lipitor] 10 mg PO HS #30 tablet 11/20/16 Cetirizine HCl [Zyrtec -] 10 mg PO DAILY #30 tablet 11/20/16 Colesevelam HCl [Welchol (Nf)] 625 mg PO BID #30 tablet 11/20/16 Gemfibrozil [Lopid -] 600 mg PO BID@0700,1630 tablet 11/20/16 Metoprolol Succinate [Toprol XL -] 50 mg PO BID #60 tab.sr.24h 11/20/16 Ranitidine [Zantac -] 150 mg PO DAILY #20 tablet 11/20/16
--- NOTE | 2016-11-21 14:09 | PN ---
Progress Note (short form) - Note Progress Note: Renal Follow up for CKD PT seen and examined at the bedside says that he is still having sherif hematuria no dysuria or flank pain good urine output Vital Signs Temperature 97.6 F 11/21/16 08:00 Pulse Rate 61 11/21/16 08:00 Respiratory Rate 18 11/21/16 08:00 Blood Pressure 103/54 11/21/16 08:00 O2 Sat by Pulse Oximetry (%) 98 11/21/16 09:00 Intake & Output 11/18/16 11/19/16 11/20/16 11/21/16 23:59 23:59 23:59 23:59 Intake Total 1330 1050 1250 500 Output Total 500 Balance 830 1050 1250 500 Gen: NAD, awake and alert CVS: RRR, No M/R Lungs: CTA, no rales or wheeze Abd: soft NT/ND No rebound or guarding. Ext: No edema, clubbing or cyanosis CBC, BMP 11/20/16 07:00 11/20/16 07:00 Current Medications Acetaminophen (Tylenol -) 650 mg PO Q4H PRN PRN Reason: FEVER OR PAIN Last Admin: 11/16/16 06:18 Dose: 650 mg Amlodipine Besylate (Norvasc -) 10 mg PO DAILY [facility] Last Admin: 11/21/16 09:29 Dose: 10 mg Apixaban (Eliquis -) 5 mg PO BID [facility] Last Admin: 11/21/16 09:29 Dose: 5 mg Benzocaine/Menthol (Cepacol Lozenge -) 1 each MM PRN PRN PRN Reason: SORE THROAT Gemfibrozil (Lopid -) 600 mg PO BID@0700,1630 [facility] Last Admin: 11/21/16 06:28 Dose: 600 mg Insulin Aspart (Novolog Vial Sliding Scale -) 1 vial SQ ACHS [facility] PRN Reason: Protocol Last Admin: 11/21/16 11:39 Dose: 6 units Isosorbide Mononitrate (Imdur -) 30 mg PO DAILY [facility] Last Admin: 11/21/16 09:29 Dose: 30 mg Losartan Potassium (Cozaar -) 50 mg PO DAILY [facility] Last Admin: 11/21/16 09:29 Dose: 50 mg Metoprolol Succinate (Toprol Xl -) 50 mg PO BID [facility] Last Admin: 11/21/16 09:29 Dose: 50 mg Nitroglycerin (Nitrostat -) 0.4 mg SL PRN PRN PRN Reason: FOR CHEST PAIN Last Admin: 11/16/16 16:07 Dose: 0.4 mg Non-Formulary Medication (Colesevelam Hcl [Welchol]) 625 mg PO TID [facility] Last Admin: 11/14/16 06:16 Dose: Not Given Pantoprazole Sodium (Protonix -) 20 mg PO DAILY [facility] Last Admin: 11/21/16 09:29 Dose: 20 mg Ranolazine (Ranexa -) 500 mg PO BID [facility] Last Admin: 11/21/16 09:29 Dose: 500 mg Tamsulosin HCl (Flomax -) 0.4 mg PO DAILY@0830 [facility] Last Admin: 11/21/16 09:28 Dose: 0.4 mg Zinc Acetate/Diphenhydramine (Benadryl 2% Cream) 1 applic TP BID [facility] Last Admin: 11/21/16 09:28 Dose: 1 applic A/P 71 year old Gentleman with PMhx of CAD s/p recent NSTEMI, DM Type 2, Hypertension, Hyperlipidemia, Nephrolithiasis (uric acid stones), BPH presents with complaints of hematuria and lower abd pain + increasing forgetfullness and found to have Cr of 1.4. #Acute on Chronic Renal Insufficiency with hematuria with hx of nephrolithiasis Renal US w/o hydronephrosis, Bladder wall was thickened. No significant PVR no new labs today but renal function has been stable good urine output #Hematuria UA today pt on eliquis Urology follow up regarding need for cysto at this time Hgb has been stable depsite continued hematuria #Hyponateremia resolved today Armando Sparks DO
[2016-11-21] MEDS ORDERED: INSULIN (NOVOLOG) ASPART 100 UNITS/ML 10ML VIAL ONE (21:02)
[2016-11-22] MEDS: GEMFIBROZIL 600 MG TABLET (FP) PO SCH (06:32)
[2016-11-22] MEDS: INSULIN SLIDING SCALE (NOVOLOG) 1 VIAL SQ SCH ×2 (06:32→11:52)
[2016-11-22 09:02] LABS: BASOPHIL 0.8 % (0-2.0); EOSINOPHIL 8.8 % (0-4.5); MCH 29.7 pg (25.7-33.7); MCHC 33.4 g/dl (32.0-35.9); MEAN PLT VOLUME 8.5 fl (7.5-11.1); NEUTROPHILS 34.9 % (42.8-82.8); PLATELET COUNT 551 K/MM3 (134-434); RDW 14.1 % (11.9-15.9); WHITE BLOOD COUNT 7.1 K/mm3 (4.0-10.0)
[2016-11-22 10:00] LABS: CALCIUM 9.5 mg/dL (8.5-10.1); CREATININE 1.3 mg/dL (0.7-1.3)
--- NOTE | 2016-11-22 10:26 | PN ---
Progress Note (short form) - Note Progress Note: Renal Follow up for CKD PT seen and examined at the bedside continues to have hematuria no abd pain, bladder discomfort or dysuria no sob, chest pain Vital Signs Temperature 97.5 F L 11/22/16 05:36 Pulse Rate 68 11/22/16 05:36 Respiratory Rate 20 11/22/16 05:36 Blood Pressure 132/70 11/22/16 05:36 O2 Sat by Pulse Oximetry (%) 96 11/21/16 21:00 Intake & Output 11/19/16 11/20/16 11/21/16 11/22/16 23:59 23:59 23:59 23:59 Intake Total 1050 1250 700 100 Output Total 400 Balance 1050 1250 300 100 Gen: NAD, awake and alert CVS: RRR, No M/R Lungs: CTA, no rales or wheeze Abd: soft NT/ND No rebound or guarding. Ext: No edema, clubbing or cyanosis CBC, BMP 11/22/16 07:30 11/22/16 07:30 Current Medications Acetaminophen (Tylenol -) 650 mg PO Q4H PRN PRN Reason: FEVER OR PAIN Last Admin: 11/16/16 06:18 Dose: 650 mg Amlodipine Besylate (Norvasc -) 10 mg PO DAILY [facility] Last Admin: 11/21/16 09:29 Dose: 10 mg Apixaban (Eliquis -) 5 mg PO BID [facility] Last Admin: 11/21/16 21:22 Dose: 5 mg Benzocaine/Menthol (Cepacol Lozenge -) 1 each MM PRN PRN PRN Reason: SORE THROAT Gemfibrozil (Lopid -) 600 mg PO BID@0700,1630 [facility] Last Admin: 11/22/16 06:32 Dose: 600 mg Insulin Aspart (Novolog Vial Sliding Scale -) 1 vial SQ ACHS [facility] PRN Reason: Protocol Last Admin: 11/22/16 06:32 Dose: 2 units Isosorbide Mononitrate (Imdur -) 30 mg PO DAILY [facility] Last Admin: 11/21/16 09:29 Dose: 30 mg Losartan Potassium (Cozaar -) 50 mg PO DAILY [facility] Last Admin: 11/21/16 09:29 Dose: 50 mg Metoprolol Succinate (Toprol Xl -) 50 mg PO BID [facility] Last Admin: 11/21/16 21:23 Dose: 50 mg Nitroglycerin (Nitrostat -) 0.4 mg SL PRN PRN PRN Reason: FOR CHEST PAIN Last Admin: 11/16/16 16:07 Dose: 0.4 mg Non-Formulary Medication (Colesevelam Hcl [Welchol]) 625 mg PO TID [facility] Last Admin: 11/14/16 06:16 Dose: Not Given Pantoprazole Sodium (Protonix -) 20 mg PO DAILY [facility] Last Admin: 11/21/16 09:29 Dose: 20 mg Ranolazine (Ranexa -) 500 mg PO BID [facility] Last Admin: 11/21/16 21:23 Dose: 500 mg Tamsulosin HCl (Flomax -) 0.4 mg PO DAILY@0830 [facility] Last Admin: 11/21/16 09:28 Dose: 0.4 mg Zinc Acetate/Diphenhydramine (Benadryl 2% Cream) 1 applic TP BID [facility] Last Admin: 11/21/16 21:25 Dose: 1 applic A/P 71 year old Gentleman with PMhx of CAD s/p recent NSTEMI, DM Type 2, Hypertension, Hyperlipidemia, Nephrolithiasis (uric acid stones), BPH presents with complaints of hematuria and lower abd pain + increasing forgetfulness and found to have Cr of 1.4. #Acute on Chronic Renal Insufficiency with hematuria with hx of nephrolithiasis Renal function improved and stable Pt with tubular proteinuria continue losartan avoid nsaids to follow up in the office as outpatient #Hematuria on Eliquis Urology followup Armando Sparks DO
[2016-11-22] MEDS: METOPROLOL SUCCINATE 50 MG TAB.SR.24H (FP) PO SCH (10:28)
[2016-11-22] MEDS: TAMSULOSIN HCL 0.4 MG CAP.ER.24H (FP) PO SCH (10:28)
[2016-11-22] MEDS: APIXABAN 5 MG TABLET PO SCH (10:28)
[2016-11-22] MEDS: amLODIPine BESYLATE 10 MG TABLET (FP) PO SCH (10:28)
[2016-11-22] MEDS: RANOLAZINE E.R. 500 MG TABLET (FP) PO SCH (10:28)
[2016-11-22] MEDS: PANTOPRAZOLE 20 MG TABLET (FP) PO SCH (10:28)
[2016-11-22] MEDS: LOSARTAN POTASSIUM 50 MG TABLET (FP) PO SCH (10:28)
[2016-11-22] MEDS: ISOSORBIDE MONONITRATE 30 MG TAB.SR.24H (FP) PO SCH (10:28)
[2016-11-22] MEDS ORDERED: INSULIN (NOVOLOG) ASPART 100 UNITS/ML 10ML VIAL ONE (11:16)
--- NOTE | 2016-11-22 12:34 | PN ---
Progress Note (short form) - Note Progress Note: patient is voiding well with occasional hematuria. patient advised that this is still expected and will resolve. ok to discharge with short term outpatient follow up
--- NOTE | 2016-11-22 12:50 | PN ---
Progress Note (short form) - Note Progress Note: chart reviewed discussed with patient blood tinged urine will pass increase fluids dc home f/u outpatient with SELENA friday 11/24
[2016-11-22 14:45] VITALS: BP 115/64; PULSE 68; TEMP 97.6
== END 2016-11-22 15:20 | disposition home or self-care (01) | DRG 533 ==
LOC: JER 20:31 → UNDOADMOB 23:58 → JERBED 23:58 → INTOOBSV 23:58 → JERBED 11-14 00:29 → J6S 11-14 12:43 → OBSVTOIN 11-16 08:54 → J6S 11-20 19:06
PROVIDERS: ADMIT Family Medicine; ATTEND Family Medicine
DX: I63.9 Cerebral infarction, unspecified (principal); N17.9 Acute kidney failure, unspecified; G92 Toxic encephalopathy; N39.0 Urinary tract infection, site not specified; E11.22 Type 2 diabetes mellitus with diabetic chronic kidney disease; N18.9 Chronic kidney disease, unspecified; E87.1 Hypo-osmolality and hyponatremia; E78.5 Hyperlipidemia, unspecified; Z87.891 Personal history of nicotine dependence; Z79.4 Long term (current) use of insulin; I25.10 Atherosclerotic heart disease of native coronary artery without angina pectoris; Z91.14 Patient's other noncompliance with medication regimen; I25.2 Old myocardial infarction; N40.0 Benign prostatic hyperplasia without lower urinary tract symptoms; R31.9 Hematuria, unspecified; G47.33 Obstructive sleep apnea (adult) (pediatric); I48.0 Paroxysmal atrial fibrillation; D64.9 Anemia, unspecified; I12.9 Hypertensive chronic kidney disease with stage 1 through stage 4 chronic kidney disease, or unspecified chronic kidney disease; R07.89 Other chest pain; R31.0 Gross hematuria; I48.91 Unspecified atrial fibrillation; Z79.01 Long term (current) use of anticoagulants
CPT/HCPCS: 36415; 70450-TC; 70545-TC; 70548-TC; 70551-TC; 71010-TC; 76775-TC; 76856-TC; 80048; 80053; 80061; 81003; 81015; 82009; 82533; 82550; 82570; 82607; 82746; 83605; 83721; 83735; 83930; 83935; 84100; 84156; 84300; 84443; 84484; 85025; 85610; 86850; 86900; 86901; 87040; 87086; 87186; 90670; 93005; 93010; 97116-GP; 97161-GP; 97164-GP; 99285-25; A9576; G0008; G0378; Q2037

== ENCOUNTER 2017-01-30 20:40 | Inpatient (IN) | payer OTHER ==
[2017-01-30 20:52] VITALS: BMI 29.5
[2017-01-30] MEDS ORDERED: ONDANSETRON 4 MG/2 ML VIAL IVPB ONE (21:39)
[2017-01-30] MEDS ORDERED: FAMOTIDINE 20 MG/50 ML IVPB 50 ML IVPB ONE ×2 (21:39→22:00)
[2017-01-30] MEDS ORDERED: ACETAMINOPHEN 325 MG TABLET (FP) PO ONE (21:39)
[2017-01-30] MEDS ORDERED: SODIUM CHLORIDE 1,000 ML IV STA (21:39)
--- NOTE | 2017-01-30 21:52 | PDOC ---
History of Present Illness - General History Source: Patient, Family, Old Records Exam Limitations: No Limitations - History of Present Illness Initial Comments: 01/30/17 22:36 The patient is a 71 year old male, with a significant past medical history of hypertension, hyperlipidemia, diabetes and coronary artery disease s/p stent, who presents to the emergency department with diffuse abdominal pain for the past three days. The patient additionally reports feeling nauseous with multiple episodes of nonbloody nonbilious vomiting and diarrhea. The patient reports a decreased appetite secondary to the nausea and vomiting. The patient reports that his abdominal pain intermittently radiates to his chest. The patient denies shortness of breath. The patient denies fever, chills or any recent illnesses. The patient denies any recent sick contacts. A family member is at the bedside. Allergies: Dynrgsa-Ref-RcE reductase inhibitor, Lactose. Past Surgical History: Appendectomy; Cholecystectomy; Cardiac Stent. Social History: Former smoker (quit in 1995). Denies alcohol or drug use. PCP: Dr. Loni Reyes Presiding Steward: Dr. Jerry Schulz <Yari Rodriguez - Last Filed: 01/31/17 01:39> - General History Source: Patient Exam Limitations: No Limitations <Pierce Rosales - Last Filed: 01/31/17 01:47> - General Chief Complaint: Chest Pain Stated Complaint: CHEST PAIN/ABD PAIN Time Seen by Provider: 01/30/17 21:05 Past History <Yari Rodriguez - Last Filed: 01/31/17 01:39> - Past Medical History Anemia: No Asthma: No Cancer: No Cardiac Disorders: Yes (atrial flutter) CVA: No COPD: No CHF: No Dementia: No Diabetes: Yes (niddm) GI Disorders: No Disorders: No HTN: Yes Hypercholesterolemia: Yes Liver Disease: No Seizures: No Thyroid Disease: No - Surgical History Abdominal Surgery: No Appendectomy: Yes Cardiac Surgery: Yes (2012) Cholecystectomy: (gallstones) Lung Surgery: No Neurologic Surgery: No Orthopedic Surgery: Yes - Psycho/Social/Smoking Cessation Hx Anxiety: No Suicidal Ideation: No Smoking Status: No Smoking History: Never smoked Have you smoked in the past 12 months: No Number of Cigarettes Smoked Daily: 4 If you are a former smoker, when did you quit?: 1995 Cigars Per Day: 1 Information on smoking cessation initiated: No 'Breaking Loose' booklet given: 11/01/16 Hx Alcohol Use: No Drug/Substance Use Hx: No Substance Use Type: None Hx Substance Use Treatment: No <Pierce Rosales - Last Filed: 01/31/17 01:47> - Past Medical History Allergies/Adverse Reactions: Allergies Allergy/AdvReac Type Severity Reaction Status Date / Time Hlahdhd-Aqw-Suz Reductase Allergy Unknown Verified 01/30/17 20:51 Inhibitor lactose AdvReac Verified 01/30/17 20:51 Home Medications: Ambulatory Orders Amlodipine Besylate [Norvasc -] 10 mg PO DAILY 12/20/15 Tamsulosin HCl [Flomax -] 0.4 mg PO DAILY #10 capsule 06/01/16 Gemfibrozil [Lopid] 600 mg PO BID 10/14/16 Losartan Potassium [Cozaar -] 50 mg PO DAILY 10/14/16 Nitroglycerin [Nitrostat] 0.4 mg SL PRN PRN 10/14/16 Omeprazole 20 mg PO DAILY 10/14/16 Insulin (Levemir) [Levemir Vial] 14 units SQ ASDIR #0 10/24/16 Isosorbide Mononitrate [Imdur -] 30 mg PO DAILY tab.sr.24h 11/01/16 Ranolazine [Ranexa -] 500 mg PO BID tab 11/01/16 Apixaban [Eliquis -] 5 mg PO BID #30 tablet 11/20/16 Atorvastatin Ca [Lipitor] 10 mg PO HS #30 tablet 11/20/16 Cetirizine HCl [Zyrtec -] 10 mg PO DAILY #30 tablet 11/20/16 Colesevelam HCl [Welchol (Nf)] 625 mg PO BID #30 tablet 11/20/16 Gemfibrozil [Lopid -] 600 mg PO BID@0700,1630 tablet 11/20/16 Metoprolol Succinate [Toprol XL -] 50 mg PO BID #60 tab.sr.24h 11/20/16 Ranitidine [Zantac -] 150 mg PO DAILY #20 tablet 11/20/16 Review of Systems - Review of Systems Able to Perform ROS?: Yes Comments:: 01/30/17 22:35 GENERAL/CONSTITUTIONAL: No fever or chills. No weakness. HEAD, EYES, EARS, NOSE AND THROAT: No change in vision. No ear pain or discharge. No sore throat. CARDIOVASCULAR: +Chest pain. No shortness of breath. RESPIRATORY: No cough, wheezing, or hemoptysis. GASTROINTESTINAL: +Nausea, vomiting, diarrhea, abdominal pain. No constipation. GENITOURINARY: No dysuria, frequency, or change in urination. MUSCULOSKELETAL: No joint or muscle swelling or pain. No neck or back pain. SKIN: No rash. NEUROLOGIC: No headache, vertigo, loss of consciousness, or change in strength/ sensation. ENDOCRINE: No increased thirst. No abnormal weight change. HEMATOLOGIC/LYMPHATIC: No anemia, easy bleeding, or history of blood clots. ALLERGIC/IMMUNOLOGIC: No hives or skin allergy. <Yari Rodriguez - Last Filed: 01/31/17 01:39> *Physical Exam - Vital Signs Last Vital Signs Temp Pulse Resp BP Pulse Ox 97.6 F 84 18 118/83 97 01/30/17 20:49 01/30/17 20:49 01/30/17 20:49 01/30/17 22:10 01/30/17 21:26 - Physical Exam Comments: 01/30/17 22:35 GENERAL: Awake, alert, and fully oriented, in no acute distress. HEAD: No signs of trauma. EYES: PERRLA, EOMI, sclera anicteric, conjunctiva clear. ENT: Dry mucosa. Auricles normal inspection, hearing grossly normal, nares patent, oropharynx clear without exudates. NECK: Normal ROM, supple, no lymphadenopathy, JVD, or masses. LUNGS: Breath sounds equal, clear to auscultation bilaterally. No wheezes, and no crackles. HEART: Regular rate and rhythm, normal S1 and S2, no murmurs, rubs or gallops. ABDOMEN: Diffuse abdominal tenderness to palpation. Soft, normoactive bowel sounds. No guarding, no rebound. No masses. EXTREMITIES: Normal range of motion, no edema. No clubbing or cyanosis. No cords , erythema, or tenderness. NEUROLOGICAL: Cranial nerves II through XII intact. Normal speech, normal gait. SKIN: Warm, dry, normal turgor, no rashes or lesions noted. <Yari Rodriguez - Last Filed: 01/31/17 01:39> - Vital Signs Last Vital Signs Temp Pulse Resp BP Pulse Ox 97.6 F 84 18 193/99 97 01/30/17 20:49 01/30/17 20:49 01/30/17 20:49 01/30/17 20:49 01/30/17 21:26 <Pierce Rosales - Last Filed: 01/31/17 01:47> Heart Score/ECG Review #1 ECG reviewed & interpreted by me at: 20:50 01/30/17 22:29 NSR 87, TWI I, aVL, no std/rachel, normal axis, normal intervals, QTC 469 msec <Pierce Rosales - Last Filed: 01/31/17 01:47> ED Treatment Course - LABORATORY CBC & Chemistry Diagram: 01/30/17 22:02 01/30/17 22:02 - Medications Given in the ED: ED Medications Discontinued Medications Generic Name Dose Route Start Last Admin Trade Name Jake PRN Reason Stop Dose Admin Acetaminophen 650 mg 01/30/17 21:39 01/30/17 22:10 Tylenol - PO 01/30/17 21:40 650 mg ONCE ONE Administration Famotidine/Sodium Chloride 50 mls @ 100 mls/hr 01/30/17 21:39 01/30/17 22:10 Pepcid 20 Mg Premixed Ivpb - IVPB 01/30/17 22:08 100 mls/hr ONCE ONE Administration Ondansetron HCl 4 mg 01/30/17 21:39 01/30/17 22:10 Zofran Injection IVPB 01/30/17 21:40 4 mg ONCE ONE Administration <Yari Rodriguez - Last Filed: 01/31/17 01:39> - LABORATORY CBC & Chemistry Diagram: 01/30/17 22:02 01/30/17 22:02 - RADIOLOGY Radiology Studies Ordered: Category Date Time Status ABDOMEN & PELVIS CT WITH CONTR [CT] Stat CT Scan 01/30/17 21:38 Ordered CHEST X-RAY PORTABLE* [RAD] Stat Radiology 01/30/17 21:38 Ordered <Pierce Rosales - Last Filed: 01/31/17 01:47> Medical Decision Making - Medical Decision Making 01/30/17 23:56 EXAM: RAD/CHEST X-RAY PORTABLE Reviewed By: Dr. Carolann Gerber IMPRESSION: Minimal atelectatic changes in the right lung base, medially without evidence of infiltrates. EXAM: CT/ABDOMEN & PELVIS CT W/O CONTRAST Reviewed By: Dr. Deuce Escamilla IMPRESSION: Mild to moderate left hydronephrosis and perinephric inflammation could be due to non visualized distal left ureteral stone, or the patient may have recently passed a stone. Air within the bladder should be correlated with [facility] catheterization. A fistula to bladder is considered less likely due to lack of surrounding colonic inflammation. Moderate prostate enlargement. Gallstones. <Yari Rodriguez - Last Filed: 01/31/17 01:39> - Medical Decision Making 01/30/17 21:44 A portion of this note was documented by scribe services under my direction. I have reviewed the details of the note, within reason, and agree with the documentation with the following case summary and management plan written by me. Patient treated in the ED. Nursing notes are reviewed and incorporated into the medical decision-making. Vital signs reviewed. Peripheral IV access obtained by the nurse, laboratory studies are drawn and sent, reviewed and interpreted by myself. Vital Signs Temp Pulse Resp BP Pulse Ox 97.6 F 84 18 193/99 97 01/30/17 20:49 01/30/17 20:49 01/30/17 20:49 01/30/17 20:49 01/30/17 21:26 71 year old male with past medical history of DM, stents, HTN, HLD presents with diffuse abdominal pain, nausea, vomiting and diarrhea. Reports numerous episodes of loose stools and vomiting. Reports diffuse abdominal pain radiating into the chest. Denies SOB. However, the patient reports that he is feeling chest tightness that is worsened today. Denies fevers. reports decrease appetite. Differential includes colitis, diverticulitis, acute gastroenteritis, enteritis. The chest pain seems less likely cardiac at this time, but will obtain a troponin. IVF, labs, CT scan of abdomen and pelvis and reassess. 01/31/17 01:18 CBC, BMP 01/30/17 22:02 01/30/17 22:02 CMP Sodium 133 mmol/L (136-145) L 01/30/17 22:02 Potassium 4.0 mmol/L (3.5-5.1) 01/30/17 22:02 Chloride 93 mmol/L (98-107) L D 01/30/17 22:02 Carbon Dioxide 25 mmol/L (21-32) 01/30/17 22:02 Anion Gap 15 (8-16) 01/30/17 22:02 BUN 32 mg/dL (7-18) H D 01/30/17 22:02 Creatinine 1.7 mg/dL (0.7-1.3) H D 01/30/17 22:02 Creat Clearance w eGFR 39.82 (>60) 01/30/17 22:02 Random Glucose 255 mg/dL (74-106) H D 01/30/17 22:02 Calcium 9.2 mg/dL (8.5-10.1) 01/30/17 22:02 Phosphorus 4.0 mg/dL (2.5-4.9) 01/30/17 22:02 Magnesium 1.2 mg/dL (1.8-2.4) L D 01/30/17 22:02 Total Bilirubin 0.4 mg/dL (0.2-1.0) 01/30/17 22:02 AST 15 U/L (15-37) D 01/30/17 22:02 ALT 12 U/L (12-78) 01/30/17 22:02 Alkaline Phosphatase 112 U/L (45-117) D 01/30/17 22:02 Creatine Kinase 111 IU/L (39-308) 01/30/17 22:02 Troponin I 0.12 ng/ml (0.00-0.05) H 01/30/17 22:02 Total Protein 7.9 g/dl (6.4-8.2) 01/30/17 22:02 Albumin 3.5 g/dl (3.4-5.0) D 01/30/17 22:02 Lipase 101 U/L (73-393) 01/30/17 22:02 CT scan of abdomen and pelvis reviewed. Demonstrates mild to moderate left hydronephrosis and perinephric inflammation. The distal ureter is obscured by streak artifact and a nonvisualized ureteral stone is possible. The urinary bladder is distended and contains air which should be correlated with recent [facility] catheterization. I had discussed the results with the patient and patient's family. The last time he had a coughlin catheter was in December 2016. has not had any since then. The etiology of the perinephric stranding is unknown at this time, but will need a UA to r/o pyelonephritis, especially with an elevated WBC. Pt is however with diffuse abd pain and diarrhea and vomiting, which seems atypical for pyelo. Will need to consider abx after UA returns. At this time, it is unknown what the air in the bladder is at this time, and perhaps ?fistula should be considered. The patient's troponin is 0.12, which is around his prior baseline. However, with cardiac history and (though atypical) chest tightness, this patient should have a rule out NH on telemetry. 01/31/17 01:[address] Vizcarra. She accepts under telemetry observation. UA pending. Case discussed in detail with admitting physician including history, physical exam and ancillary studies. Admitting physician has assumed care for the patient, will follow all pending diagnostics and will complete the evaluation and treatment. <Pierce Rosales - Last Filed: 01/31/17 01:47> *DC/Admit/Observation/Transfer - Attestations Scribe Attestion: 01/30/17 22:34 Documentation prepared by Yari Rodriguez, acting as medical laboratory scientist for Pierce Rosales MD. <Yari Rodriguez - Last Filed: 01/31/17 01:39> - Discharge Dispostion Admit: Yes <Pierce Rosales - Last Filed: 01/31/17 01:47> Diagnosis at time of Disposition: Abdominal pain in male, Demand ischemia - Discharge Dispostion Condition at time of disposition: Fair - Referrals Referrals: STAFF,NOT ON [Primary Care Provider] -
[2017-01-30] MEDS ORDERED: ONDANSETRON 4 MG/2 ML VIAL ONE (22:00)
[2017-01-30] MEDS ORDERED: ACETAMINOPHEN 325 MG TABLET (FP) ONE (22:00)
[2017-01-30 22:47] LABS: BASOPHIL 0.2 % (0-2.0); MCH 28.5 pg (25.7-33.7); MCHC 32.8 g/dl (32.0-35.9); MEAN CELL VOLUME 86.8 fl (80-96); MEAN PLT VOLUME 9.4 fl (7.5-11.1); NEUTROPHILS 90.8 % (42.8-82.8); PLATELET COUNT 360 K/MM3 (134-434); RDW 20.2 % (11.9-15.9); WHITE BLOOD COUNT 14.2 K/mm3 (4.0-10.0)
[2017-01-30 23:22] LABS: INR 1.23 (0.82-1.09); PROTHROMBIN TIME (PATIENT) 13.6 SEC (9.98-11.88)
[2017-01-30 23:25] LABS: ACTIVATED PTT 36.2 SECONDS (26.9-34.4)
[2017-01-30 23:56] LABS: ALBUMIN 3.5 g/dl (3.4-5.0); CALCIUM 9.2 mg/dL (8.5-10.1); CREATININE 1.7 mg/dL (0.7-1.3); MAGNESIUM 1.2 mg/dL (1.8-2.4)
[2017-01-30] MEDS ORDERED: MAGNESIUM SULF 50% (8.12 MEQ/2 ML-1 GM VIAL) IVPB ONE (23:58)
[2017-01-31] MEDS ORDERED: morphine CARPU-JECT 4 MG/1 ML DISP.SYRIN IVPUSH ONE (00:01)
[2017-01-31] MEDS ORDERED: morphine CARPU-JECT 4 MG/1 ML DISP.SYRIN ONE (00:23)
[2017-01-31] MEDS ORDERED: MAGNESIUM SULF 50% (8.12 MEQ/2 ML-1 GM VIAL) ONE (00:24)
[2017-01-31 00:25] LABS: BILIRUBIN,TOTAL 0.4 mg/dL (0.2-1.0); TOT PROT 7.9 g/dl (6.4-8.2)
[2017-01-31 00:26] LABS: TROPONIN I 0.12 ng/ml (0.00-0.05)
[2017-01-31 02:46] LABS: URINE APPEARANCE CLOUDY; URINE BILIRUBIN NEGATIVE (NEGATIVE); URINE COLOR LTYELLOW; URINE GLUCOSE (UA) 3+ (NEGATIVE); URINE KETONE 1+ (NEGATIVE); URINE NITRITE POSITIVE (NEGATIVE); URINE UROBILINOGEN NEGATIVE E.U./dl (0.2-1.0)
[2017-01-31 03:05] LABS: URINE BLOOD 2+ (NEGATIVE); URINE LEUK ESTERASE 3+ (NEGATIVE); URINE PROTEIN 2+ (NEGATIVE)
[2017-01-31] MEDS ORDERED: ONDANSETRON 4 MG/2 ML VIAL IVPB PRN (03:36)
[2017-01-31] MEDS ORDERED: morphine CARPU-JECT 2 MG/1 ML DISP.SYRIN IVPUSH PRN (03:36)
--- NOTE | 2017-01-31 03:36 | HP ---
<LacielsyLois rios - Last Filed: 01/31/17 03:47> CHIEF COMPLAINT: abdominal and chest pain for 3 days PCP: None HISTORY OF PRESENT ILLNESS: 71 year old male that presents to the ED with complaints of epigastric abdominal pain, 8/10 in intensity, constant, that started 3 days ago and progressed in intensity. Pain is associated with nausea and multiple episodes of vomiting and diarrhea. Reports having diarrhea every hour. Denies fever or sick contacts. Recent Travel: no PAST MEDICAL HISTORY: hypertension, hyperlipidemia, DM, CAD PAST SURGICAL HISTORY: cardiac catheterization, appendectomy, cholecystectomy Social History: Smoking: former smoker 20 pack year Alcohol: denies Drugs: denies Family History: noncontributory Allergies Pmlfyik-Vnz-Wil Reductase Inhibitor Allergy (Unknown, Verified 01/30/17 20:51) lactose Adverse Reaction (Verified 01/30/17 20:51) HOME MEDICATIONS: Home Medications Medication Instructions Recorded Amlodipine Besylate [Norvasc -] 10 mg PO DAILY 12/20/15 Tamsulosin HCl [Flomax -] 0.4 mg PO DAILY #10 capsule 06/01/16 Gemfibrozil [Lopid] 600 mg PO BID 10/14/16 Losartan Potassium [Cozaar -] 50 mg PO DAILY 10/14/16 Nitroglycerin [Nitrostat] 0.4 mg SL PRN PRN 10/14/16 Insulin (Levemir) [Levemir Vial] 14 units SQ ASDIR #0 10/24/16 Isosorbide Mononitrate [Imdur -] 30 mg PO DAILY tab.sr.24h 11/01/16 Ranolazine [Ranexa -] 500 mg PO BID tab 11/01/16 Apixaban [Eliquis -] 5 mg PO BID #30 tablet 11/20/16 Atorvastatin Ca [Lipitor] 10 mg PO HS #30 tablet 11/20/16 Cetirizine HCl [Zyrtec -] 10 mg PO DAILY #30 tablet 11/20/16 Colesevelam HCl [Welchol (Nf)] 625 mg PO BID #30 tablet 11/20/16 Metoprolol Succinate [Toprol XL -] 50 mg PO BID #60 tab.sr.24h 11/20/16 Ranitidine [Zantac -] 150 mg PO DAILY #20 tablet 11/20/16 Insulin Sliding Scale [Novolog 0 units SQ QID PRN 01/31/17 Vial Sliding Scale -] REVIEW OF SYSTEMS CONSTITUTIONAL: Absent: fever, chills, diaphoresis, generalized weakness, malaise, loss of appetite, weight change HEENT: Absent: rhinorrhea, nasal congestion, throat pain, throat swelling, difficulty swallowing, mouth swelling, ear pain, eye pain, visual changes CARDIOVASCULAR: Present: chest pain Absent: syncope, palpitations, irregular heart rate, lightheadedness, peripheral edema RESPIRATORY: Absent: cough, shortness of breath, dyspnea with exertion, orthopnea, wheezing, stridor, hemoptysis GASTROINTESTINAL: Present: abdominal pain, nausea, vomiting, diarrhea Absent: abdominal distension, constipation, melena, hematochezia GENITOURINARY: Absent: dysuria, frequency, urgency, hesitancy, hematuria, flank pain, genital pain MUSCULOSKELETAL: Absent: myalgia, arthralgia, joint swelling, back pain, neck pain SKIN: Absent: rash, itching, pallor HEMATOLOGIC/IMMUNOLOGIC: Absent: easy bleeding, easy bruising, lymphadenopathy, frequent infections ENDOCRINE: Absent: unexplained weight gain, unexplained weight loss, heat intolerance, cold intolerance NEUROLOGIC: Absent: headache, focal weakness or paresthesias, dizziness, unsteady gait, seizure, mental status changes, bladder or bowel incontinence PSYCHIATRIC: Absent: anxiety, depression, suicidal or homicidal ideation, hallucinations. PHYSICAL EXAMINATION Vital Signs - 24 hr 01/31/17 02:48 Pulse Rate [ 88 Both Radial] Respiratory 18 Rate Blood Pressure 150/78 [Right] O2 Sat by Pulse 97 Oximetry (%) GENERAL: Awake, alert, and fully oriented, in no acute distress. HEAD: Normal with no signs of trauma. EYES: Pupils equal, round and reactive to light, extraocular movements intact, sclera anicteric, conjunctiva clear. No lid lag. EARS, NOSE, THROAT: Ears normal, nares patent, oropharynx clear without exudates. Moist mucous membranes. NECK: Normal range of motion, supple without lymphadenopathy, JVD, or masses. LUNGS: Breath sounds equal, clear to auscultation bilaterally. No wheezes, and no crackles. No accessory muscle use. HEART: Regular rate and rhythm, normal S1 and S2 without murmur, rub or gallop. ABDOMEN: +epigastric tenderness, no rebound no guarding. Soft, not distended, normoactive bowel sounds, no masses. No hepatomegaly or splenomegaly. MUSCULOSKELETAL: Normal range of motion at all joints. No bony deformities or tenderness. No CVA tenderness. UPPER EXTREMITIES: 2+ pulses, warm, well-perfused. No cyanosis. No clubbing. No peripheral edema. LOWER EXTREMITIES: 2+ pulses, warm, well-perfused. No calf tenderness. No peripheral edema. NEUROLOGICAL: Cranial nerves II-XII intact. Normal speech. PSYCHIATRIC: Cooperative. Good eye contact. Appropriate mood and affect. SKIN: Warm, dry, normal turgor, no rashes or lesions noted, normal capillary refill. Laboratory Results - last 24 hr 01/31/17 02:20 Urine Color Ltyellow Urine Appearance Cloudy Urine pH 5.0 D Ur Specific [place] 1.015 Urine Protein 2+ H Urine Glucose (UA) 3+ H Urine Ketones 1+ H Urine Blood 2+ H Urine Nitrite Positive Urine Bilirubin Negative Urine Urobilinogen Negative Ur Leukocyte Esterase 3+ H D IMAGING: EXAM: RAD/CHEST X-RAY PORTABLE Reviewed By: Dr. Carolann Gerber IMPRESSION: Minimal atelectatic changes in the right lung base, medially without evidence of infiltrates. EXAM: CT/ABDOMEN & PELVIS CT W/O CONTRAST Reviewed By: Dr. Deuce Escamilla FINDINGS: Lung bases are clear other mild right middle lobe linear scarring or atelectasis.. The visualized cardiac chambers are normal size and configuration. There are gallstones but no gallbladder inflammation. There is mild to moderate left hydronephrosis and perinephric inflammation. The distal ureter is obscured by streak artifact and a nonvisualized ureteral stone is possible. No intraparenchymal stones are noted. Normal unenhanced liver, pancreas, spleen, adrenal glands and right kidney. The stomach and abdominal small and large bowel are normal. There is no aortic aneurysm. There is no significant retroperitoneal lymphadenopathy. The pelvic small and large bowel are available for sigmoid diverticulosis without diverticulitis. There is no evidence of appendicitis. The urinary bladder is distended and contains air which should be correlated with recent [place] catheterization. The prostate gland is moderately enlarged at 6.1 x 5.5 cm. No pelvic free fluid is identified. There is no significant pelvic lymphadenopathy. IMPRESSION: Mild to moderate left hydronephrosis and perinephric inflammation could be due to non visualized distal left ureteral stone, or the patient may have recently passed a stone. Air within the bladder should be correlated with [place] catheterization. A fistula to bladder is considered less likely due to lack of surrounding colonic inflammation. Moderate prostate enlargement. Gallstones. ECG - no acute abnormality, no acute ST changes ASSESSMENT/PLAN: 71 year old male that presents to the Emergency Department with abdominal pain and atypical chest pain. 1. Abdominal pain in patient with 3 day history of gastroenteritis. There is also evidence of hydronephrosis and perinephric inflamation/ possibly passed stone. There is evidence of UTI. - IVF - Pain control with IV morphine - Zofran for nausea - Obtain stool studies if patient continues having diarrhea - IV protonix - IV antibiotics - Urine culture 2. Atypical chest pain Most likely is associated with acid reflux. However, considering prior history of CAD and borderline elevated cardiac enzymes will need to rule out acute coronary artery syndrome. - Trend troponins - Continue current medication regimen 3. Acute renal insufficiency Possible secondary to nephrolithiasis vs. BPH vs. UTI. - Continue IVF - Monitor creatinine levels 4. Hypertension - controlled - Continue home medications - Monitor BP and adjust medications accordingly 5. Diabetes - Obtain Hbg A1C - Monitor blood glucose 6. Hypomagnesemia - Supplement - Follow up labs 7. DVT ppx - Lovenox subQ Place on Observation. Documentation prepared by RICARDO Hitchcock, acting as medical sales consultant for Kyara Vizcarra MD, MD. <Kyara Vizcarra - Last Filed: 02/25/17 06:52> Visit type - Emergency Visit Emergency Visit: Yes ED Registration Date: 01/31/17 Care time: The patient presented to the Emergency Department on the above date and was hospitalized for further evaluation of their emergent condition. - New Patient This patient is new to me today: Yes Date on this admission: 02/25/17 - Critical Care Critical Care patient: No
[2017-01-31] MEDS ORDERED: MAGNESIUM SULF 50% (8.12 MEQ/2 ML-1 GM VIAL) IVPB ONE (03:45)
[2017-01-31] MEDS ORDERED: ENOXAPARIN NA (PORCINE) 60 MG/0.6 ML DISP.SYRIN SQ ONE ×2 (03:45→04:27)
[2017-01-31] MEDS ORDERED: SODIUM CHLORIDE 1,000 ML IV SCH (03:45)
[2017-01-31 04:11] LABS: URINE BACTERIA MANY /hpf (NONE SEEN); URINE HYALINE CAST 5 /lpf; URINE MUCUS RARE; URINE RBC 103 /hpf (0-3); URINE WBC 537 /hpf (3-5)
[2017-01-31] MEDS ORDERED: INSULIN (NOVOLOG) ASPART 100 UNITS/ML 10ML VIAL ONE (04:40)
[2017-01-31] MEDS ORDERED: INSULIN (NOVOLOG) ASPART 100 UNITS/ML 10ML VIAL SQ ONE (05:57)
--- NOTE | 2017-01-31 08:44 | PN ---
Physical Exam: SUBJECTIVE: Patient seen and examined Came to see the patient c/o severe chest pain 07/12, stat NTG given pain slightly improved 06/11, morphine given stat 2gm pain is completely resolved / , started his Imdur since patient did not take it this morning and his Ranexa. EKG was ordered , troponins 2 sets. OBJECTIVE: Vital Signs Temperature 98.9 F 01/31/17 07:13 Pulse Rate 88 01/31/17 07:13 Respiratory Rate 16 01/31/17 07:13 Blood Pressure 100/62 01/31/17 07:13 O2 Sat by Pulse Oximetry (%) 97 01/31/17 07:13 GENERAL: The patient is awake, alert, and fully oriented, in no acute distress. HEAD: Normal with no signs of trauma. EYES: PERRL, extraocular movements intact, sclera anicteric, conjunctiva clear. No ptosis. ENT: Ears normal, nares patent, oropharynx clear without exudates, moist mucous membranes. NECK: Trachea midline, full range of motion, supple. LUNGS: decreased BS BL , no wheezes, no crackles, no accessory muscle use. HEART: S1, S2 without murmur, rub or gallop. mild tchycrdia 105, ABDOMEN: nontender, nondistended, normoactive bowel sounds, no guarding, no rebound, no hepatosplenomegaly, no masses. EXTREMITIES: 2+ pulses, warm, well-perfused, no edema. NEUROLOGICAL: Cranial nerves II through XII grossly intact. Normal speech, gait not observed. PSYCH: Normal mood, normal affect. SKIN: Warm, dry, normal turgor, no rashes or lesions noted Active Medications Generic Name Dose Route Start Last Admin Trade Name Freq PRN Reason Stop Dose Admin Amlodipine Besylate 10 mg 01/31/17 10:00 Norvasc - PO DAILY LONNIE Apixaban 5 mg 01/31/17 10:00 Eliquis - PO BID LONNIE Sodium Chloride 1,000 mls @ 75 mls/hr 01/31/17 03:45 01/31/17 04:33 Normal Saline - IV 75 mls/hr ASDIR LONNIE Administration Levofloxacin 100 mls @ 100 mls/hr 01/31/17 10:00 Levaquin 500 Mg Premixed Ivpb - IVPB DAILY LONNIE Insulin Detemir 14 units 01/31/17 03:30 Levemir Vial SQ ASDIR LONNIE Morphine Sulfate 1 mg 01/31/17 03:36 Morphine Injection - IVPUSH 02/01/17 03:35 Q4H PRN PAIN Ondansetron HCl 4 mg 01/31/17 03:36 Zofran Injection IVPB Q6H PRN NAUSEA Pantoprazole Sodium 40 mg 01/31/17 10:00 Protonix - PO BID LONNIE CBCD WBC 14.2 K/mm3 (4.0-10.0) H D 01/30/17 22:02 RBC 4.19 M/mm3 (4.00-5.60) D 01/30/17 22:02 Hgb 11.9 GM/dL (11.7-16.9) D 01/30/17 22:02 Hct 36.4 % (35.4-49) D 01/30/17 22:02 MCV 86.8 fl (80-96) 01/30/17 22:02 MCHC 32.8 g/dl (32.0-35.9) 01/30/17 22:02 RDW 20.2 % (11.9-15.9) H D 01/30/17 22:02 Plt Count 360 K/MM3 (134-434) D 01/30/17 22:02 MPV 9.4 fl (7.5-11.1) D 01/30/17 22:02 CMP Sodium 133 mmol/L (136-145) L 01/30/17 22:02 Potassium 4.0 mmol/L (3.5-5.1) 01/30/17 22:02 Chloride 93 mmol/L (98-107) L D 01/30/17 22:02 Carbon Dioxide 25 mmol/L (21-32) 01/30/17 22:02 Anion Gap 15 (8-16) 01/30/17 22:02 BUN 32 mg/dL (7-18) H D 01/30/17 22:02 Creatinine 1.7 mg/dL (0.7-1.3) H D 01/30/17 22:02 Creat Clearance w eGFR 39.82 (>60) 01/30/17 22:02 Random Glucose 255 mg/dL (74-106) H D 01/30/17 22:02 Calcium 9.2 mg/dL (8.5-10.1) 01/30/17 22:02 Total Bilirubin 0.4 mg/dL (0.2-1.0) 01/30/17 22:02 AST 15 U/L (15-37) D 01/30/17 22:02 ALT 12 U/L (12-78) 01/30/17 22:02 Alkaline Phosphatase 112 U/L (45-117) D 01/30/17 22:02 Total Protein 7.9 g/dl (6.4-8.2) 01/30/17 22:02 Albumin 3.5 g/dl (3.4-5.0) D 01/30/17 22:02 CARDIAC ENZYMES Creatine Kinase 111 IU/L (39-308) 01/30/17 22:02 Troponin I 0.13 ng/ml (0.00-0.05) H 01/31/17 04:22 IMAGING: EXAM: RAD/CHEST X-RAY PORTABLE Reviewed By: Dr. Carolann Gerber IMPRESSION: Minimal atelectatic changes in the right lung base, medially without evidence of infiltrates. EXAM: CT/ABDOMEN & PELVIS CT W/O CONTRAST Reviewed By: Dr. Deuce Escamilla FINDINGS: Lung bases are clear other mild right middle lobe linear scarring or atelectasis.. The visualized cardiac chambers are normal size and configuration. There are gallstones but no gallbladder inflammation. There is mild to moderate left hydronephrosis and perinephric inflammation. The distal ureter is obscured by streak artifact and a nonvisualized ureteral stone is possible. No intraparenchymal stones are noted. Normal unenhanced liver, pancreas, spleen, adrenal glands and right kidney. The stomach and abdominal small and large bowel are normal. There is no aortic aneurysm. There is no significant retroperitoneal lymphadenopathy. The pelvic small and large bowel are available for sigmoid diverticulosis without diverticulitis. There is no evidence of appendicitis. The urinary bladder is distended and contains air which should be correlated with recent [place] catheterization. The prostate gland is moderately enlarged at 6.1 x 5.5 cm. No pelvic free fluid is identified. There is no significant pelvic lymphadenopathy. IMPRESSION: Mild to moderate left hydronephrosis and perinephric inflammation could be due to non visualized distal left ureteral stone, or the patient may have recently passed a stone. Air within the bladder should be correlated with [place] catheterization. A fistula to bladder is considered less likely due to lack of surrounding colonic inflammation. Moderate prostate enlargement. Gallstones. Urine Test Results Urine Color Ltyellow 01/31/17 02:20 Urine Appearance Cloudy 01/31/17 02:20 Urine pH 5.0 (5.0-8.0) D 01/31/17 02:20 Ur Specific [place] 1.015 (1.001-1.035) 01/31/17 02:20 Urine Protein 2+ (NEGATIVE) H 01/31/17 02:20 Urine Glucose (UA) 3+ (NEGATIVE) H 01/31/17 02:20 Urine Ketones 1+ (NEGATIVE) H 01/31/17 02:20 Urine Blood 2+ (NEGATIVE) H 01/31/17 02:20 Urine Nitrite Positive (NEGATIVE) 01/31/17 02:20 Urine Bilirubin Negative (NEGATIVE) 01/31/17 02:20 Ur Leukocyte Esterase 3+ (NEGATIVE) H D 01/31/17 02:20 Urine RBC 103 /hpf (0-3) 01/31/17 02:20 Urine WBC 537 /hpf (3-5) 01/31/17 02:20 Urine Bacteria Many /hpf (NONE SEEN) 01/31/17 02:20 Urine Mucus Rare 01/31/17 02:20 ECG - no acute abnormality, no acute ST changes ASSESSMENT/PLAN: 71 year old male that presents to the Emergency Department with abdominal pain and atypical chest pain. # Acute chest pain now, given one dose of SL nitro and reordered his meds, also given Morphine 2mg x1 chest pain improved from 9 to 2/10 , CE q6h x2 sets ordered, EKG stat was done and discussed with , mild elevation of troponin on admission, Reordered his medsImdur and Ranexa. with history of CAD and borderline elevated cardiac enzymes will need to rule out acute coronary artery syndrome. Trend troponins, Continue current medication regimen # Acute renal failure due to nephrolithiasis vs. BPH vs. UTI. Continue IVF, Monitor creatinine function, Nephrology consult Dr. Sparks # Acute UTI with hx of ESBL will place the patient on Rocephin , ID consult Dr. Segura, Urine culture is pending. # Mild to moderate Hydronephrosis with perinephric inflammation , urology consult Dr. Rogel. since they have seen him before # Moderate enlargement of prostate ; for consult # Hypertension - Uncontrolled possible due to chest pain . given SL nitro , morphine # Diabetes, check hemoglobin A1C, Monitor blood glucose # Hypomagnesemia replete mag # Abdominal pain in patient with 3 day history of gastroenteritis. # Diarrhea stool for culture DVT ppx : Eliquis CC time of 35minutes Visit type - Emergency Visit Emergency Visit: Yes ED Registration Date: 01/31/17 Care time: The patient presented to the Emergency Department on the above date and was hospitalized for further evaluation of their emergent condition. - New Patient This patient is new to me today: Yes Date on this admission: 01/31/17 - Critical Care Critical Care patient: Yes Total Critical Care Time (in minutes): 35 Critical Care Statement: The care of this patient involved high complexity decision making to prevent further life threatening deterioration of the patient 's condition and/or to evalute & treat vital organ system(s) failure or risk of failure.
[2017-01-31] MEDS: APIXABAN 5 MG TABLET PO SCH ×2 (09:21→22:48)
[2017-01-31] MEDS ORDERED: LEVOFLOXACIN 500 MG IVPB 100 ML IVPB SCH (10:00)
[2017-01-31] MEDS ORDERED: PANTOPRAZOLE 40 MG TABLET (FP) PO SCH (10:00)
[2017-01-31] MEDS ORDERED: amLODIPine BESYLATE 10 MG TABLET (FP) PO SCH (10:00)
--- NOTE | 2017-01-31 12:20 | PN ---
Progress Note (short form) - Note Progress Note: Chief Complaint: Events noted, notes reviewed, abdominal discomfort with diarrhea and chest pain syndrome History of Present Illness: Seen and examined on telemetry. Full consult dictated Echocardiography dated 12/21/2015 normal LV size and function, with mild TR and DC MPI study 12/21/2015 revealed small-moderate size apical defect compatible with mild ischemia with preserved LV function Medications: Current Medications Amlodipine Besylate (Norvasc -) 10 mg PO DAILY [facility] Last Admin: 01/31/17 09:21 Dose: 10 mg Apixaban (Eliquis -) 5 mg PO BID [facility] Last Admin: 01/31/17 09:21 Dose: 5 mg Sodium Chloride (Normal Saline -) 1,000 mls @ 75 mls/hr IV ASDIR [facility] Last Admin: 01/31/17 04:33 Dose: 75 mls/hr Levofloxacin (Levaquin 500 Mg Premixed Ivpb -) 100 mls @ 100 mls/hr IVPB DAILY [facility] Last Admin: 01/31/17 09:21 Dose: 100 mls/hr Insulin Detemir (Levemir Vial) 14 units SQ ASDIR [facility] Morphine Sulfate (Morphine Injection -) 1 mg IVPUSH Q4H PRN PRN Reason: PAIN Stop: 02/01/17 03:35 Ondansetron HCl (Zofran Injection) 4 mg IVPB Q6H PRN PRN Reason: NAUSEA Pantoprazole Sodium (Protonix -) 40 mg PO BID [facility] Last Admin: 01/31/17 09:21 Dose: 40 mg Review of Systems Cardiovascular: As noted above Respiratory: denies: denies: Cough or Sputum Production Gastrointestinal: denies: Nausea, Vomiting but reports Abdominal Discomfort and Diarrhea Musculoskeletal: No Symptoms Reported Endocrine: No Symptoms Reported Vital Signs: Last Vital Signs Temp Pulse Resp BP Pulse Ox 98.9 F 88 16 100/62 97 01/31/17 07:13 01/31/17 07:13 01/31/17 07:13 01/31/17 07:13 01/31/17 07:13 Constitutional: No Distress, Calm Neck: Supple Negative JVD Respiratory: Diminished Breath Sounds at the bases Cardiovascular: S1 S2 Regular rate Rhythm Grade 1/6 SM Gastrointestinal: Soft Benign Normal Bowel Sounds Ext: No Edema Labs: CBC, BMP 01/30/17 22:02 01/30/17 22:02 Troponin, BNP 03/31/17 04/01/17 22:02 04:22 Troponin I 0.12 H 0.13 H Assessment/Plan ASSESSMENT: 1. Abdominal discomfort with diarrhea with atypical chest pain syndrome in a patient with known, 2. CAD post multi-vessel PCI stent angina pectoris, Trop. I elevation is not consistent with ACS, no clinical syndrome 3. Diastolic LV dysfunction with chronic class I NYHA classification LV failure , compensated 4. Paroxysmal atrial fibrillation previous history of RFA, [id number] score of 5, currently on A/C therapy with NOAC's 5. HTN 6. DM 7. Hyperlipidemia 8. History of KATJA 9. CKD 10. History of nephrolithiasis 11. Anemia PLAN: 1. Resume Lopressor 2. Continue Amlodipine but decrease dosage 3. Resume Losartan 4. Resume Ranexa and Imdur, hemodynamics permitting 5. Continue Eliquis with close monitoring of CBC maintaining Hg equal or > 8.0 6. Evaluation of abdominal discomfort as per the primary team martin Tapia M.D.
--- NOTE | 2017-01-31 12:46 | PN ---
Progress Note (short form) - Note Progress Note: ID consult dictated imp/reccd 71 year old man with PMH nephrolithiasis, recently in hospital in November with ESBL ecoli UTI now readmitted with one week of intermittent abd cramping and diarrhea, yesterday vomited once reports fevers at home no dysuria ct scan with Left hydronephrosis with calculus and perinephric stranding UTI diarrhea- r/o cdiff nephrolithiasis with hydronephrosis history esbl ecoli d/c levaquin ertapenem stool cdiff/cultur blood cultures urology consult d/w hospitalist
[2017-01-31] MEDS ORDERED: NITROGLYCERIN SUBLINGUAL 1/150 0.4 MG TAB ONE (13:10)
[2017-01-31] MEDS ORDERED: NITROGLYCERIN 2% OINTMENT - 1GM PACKET TD ONE (13:10)
[2017-01-31] MEDS ORDERED: NITROGLYCERIN SUBLINGUAL 1/150 0.4 MG TAB SL PRN (13:26)
[2017-01-31] MEDS ORDERED: ERTAPENEM SODIUM 1 GM in SODIUM CHLORIDE 50 ML IVPB SCH (13:30)
[2017-01-31] MEDS ORDERED: ISOSORBIDE MONONITRATE 30 MG TAB.SR.24H (FP) PO SCH (13:30)
[2017-01-31] MEDS ORDERED: RANOLAZINE E.R. 500 MG TABLET (FP) PO SCH (13:30)
[2017-01-31] MEDS ORDERED: METOPROLOL SUCCINATE 50 MG TAB.SR.24H (FP) PO SCH (13:30)
[2017-01-31] MEDS ORDERED: morphine CARPU-JECT 2 MG/1 ML DISP.SYRIN IVPUSH ONE (13:38)
[2017-01-31] MEDS: SODIUM CHLORIDE 1,000 ML IV SCH (13:45)
--- NOTE | 2017-01-31 13:46 | CONS ---
DATE OF CONSULTATION: 01/31/2017 REQUESTING PROVIDER: Hospitalist. CHIEF COMPLAINT: Abdominal discomfort, chest discomfort, elevated troponin I level. HISTORY OF PRESENT ILLNESS: The patient is a 71-year-old male known to our service with known history of coronary artery disease, status post multivessel percutaneous coronary intervention and stenting, angina pectoris, diastolic left ventricular dysfunction with chronic class I [place] [employer] classification left ventricular failure, paroxysmal atrial fibrillation (on chronic anticoagulation therapy with Eliquis), hypertensive cardiovascular disease, diabetes mellitus, hypercholesterolemia, cholelithiasis and nephrolithiasis. He presented to [facility] with abdominal pain discomfort for several days, with associated diarrhea and subsequently intermittent chest discomfort. The chest discomfort was described as a sharp pain which was transitory and then subsided spontaneously. The patient denied any associated symptomatology, i.e., diaphoresis. The patient denied any dyspnea, orthopnea, paroxysmal nocturnal dyspnea or peripheral edema. The patient denied any palpitations, dizziness, lightheadedness or syncope. The patient denied any nausea or vomiting. PAST MEDICAL HISTORY: 1. Coronary artery disease, status post multivessel percutaneous coronary intervention and stenting. 2. Angina pectoris. 3. Diastolic left ventricular dysfunction with chronic class I [place] [employer] classification left ventricular failure. 4. Paroxysmal atrial fibrillation, on anticoagulation therapy with Eliquis. 5. Hypertension. 6. 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. 7. Hypercholesterolemia. 8. Nephrolithiasis. 9. Cholelithiasis. 10. Appendectomy. 11. Hip replacement surgery. SOCIAL HISTORY: Prior history of smoking. FAMILY HISTORY: Positive for coronary artery disease. ALLERGIES: STATIN THERAPY intolerance. MEDICATIONS: Medical therapy currently includes: Cozaar 50 mg once a day, Lopid 600 mg twice a day, Flomax 0.4 mg once a day, Imdur 30 mg once a day, Lipitor 10 mg once a day, Ranexa 500 mg twice a day, Toprol XL 50 mg twice a day, Welchol 625 mg twice a day, Zantac 150 mg twice a day. REVIEW OF SYSTEMS: Head and Neck: Denies headache, photophobia, blurring of vision. Respiratory: No cough or sputum production. Cardiovascular: As noted above. Gastrointestinal: As noted above. Genitourinary: No symptoms reported. Musculoskeletal: History of degenerative joint disease. PHYSICAL EXAMINATION: Vital signs: Blood pressure is 100/62 mmHg. Pulse rate is 88 beats per minute. Head and Neck: Pupils equal and reactive to light and accommodation. Extraocular movements are intact. Anicteric sclerae. Negative JVD. No bruit appreciated. Chest: Diminished breath sounds at the bases. Cardiovascular: S1 and S2 regular. Grade 1/6 systolic apical murmur. No clicks or gallop. Abdomen: Soft, benign. Normoactive bowel sounds. Extremities: Negative edema. DIAGNOSTIC STUDIES: Chest x-ray report was noted. EKG not available in the chart. CBC revealed white cell count 14.2, hemoglobin 11.9, platelet count 360. Basic metabolic profile revealed sodium 133, potassium 4.0, BUN 32, creatinine 1.7, glucose 255. Troponin 0.12, repeat 0.13. ASSESSMENT: 1. Abdominal discomfort with diarrhea and atypical chest pain syndrome in a patient with known history of: 2. Coronary artery disease, status post multivessel percutaneous coronary intervention and stenting, and angina pectoris. Troponin I elevation is not consistent with acute coronary syndrome. No clinical syndrome. 3. Diastolic left ventricular dysfunction with chronic class I [place] [employer] classification left ventricular failure, compensated. 4. Paroxysmal atrial fibrillation, prior history of radiofrequency ablation. [id number] score of 5. Currently on anticoagulation therapy with NOAC's 5. Hypertension. 6. 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. 7. Hypercholesterolemia. 8. History of obstructive sleep apnea. 9. Chronic kidney disease. 10. History of nephrolithiasis. 11. Anemia. PLAN 1. Resumption of beta-lora therapy. 2. Continuation of amlodipine therapy but decreasing dosage. 3. Resumption of losartan therapy. 4. Resumption of Ranexa and Imdur therapy, hemodynamics permitting. 5. Continuation of Eliquis therapy with close monitoring of CBC and maintaining hemoglobin equal to or greater than 8. 6. Evaluation of abdominal discomfort as per the primary team. Thank you for the kind referral. RACHEL CHANEY M.D. [id number] MTDD
--- NOTE | 2017-01-31 13:59 | CONS ---
DATE OF CONSULTATION: DATE OF DICTATION: 01/31/2017 INFECTIOUS DISEASE CONSULTATION REQUESTING PROVIDER: Hospitalist service HISTORY OF PRESENT ILLNESS: This is a 71-year-old man recently hospitalized November 16 through November 22. He presented at that time with increased forgetfulness. During that admission he was found to have an E. coli ESBL UTI. He has a history of prior TURP and bladder stone removed in 2014, complicated by continued abdominal discomfort the following day, requiring cysto, suprapubic cystotomy and repair of a bladder perforation on October 17. He has done well since that time. He now comes into the emergency room complaining of a week of intermittent abdominal pain and cramping and diarrhea. There was no dysuria. He had 1 episode of vomiting. He reports fevers at home. In the emergency room, his workup included a CT scan of his abdomen and pelvis that showed left hydronephrosis with perinephric stranding and a calculus. He was admitted for further workup. He was noted to have pyuria as well and started on Levaquin. Currently he denies any abdominal cramping and he notes his diarrhea has stopped. PAST MEDICAL HISTORY: Notable for atrial fibrillation, coronary artery disease, hypertension, hyperlipidemia, sleep apnea, cholelithiasis, BPH and renal calculi. He also has a history of noninsulin-dependent diabetes and atrial flutter in the past. PAST SURGICAL HISTORY: Notable for appendectomy and cholecystectomy. He has had a cardiac stent in the past and most recently had a TURP, bladder stone removal and repair of a bladder perforation, with suprapubic cystotomy. ALLERGIES: He is allergic to STATINS and LACTOSE. MEDICATIONS: His medications as an outpatient include Norvasc, Flomax, Lopid, Cozaar, Nitrostat, omeprazole, insulin, Imdur, Ranexa, Eliquis, Lipitor, Zyrtec, Welchol, Toprol XL and Zantac. FAMILY HISTORY: Noncontributory. SOCIAL HISTORY: He is . He lives at home with his . REVIEW OF SYSTEMS: Currently he denies any abdominal pain and he is ready to eat lunch. PHYSICAL EXAMINATION: General: He is awake and alert. Vital Signs: His temperature is 98.9, pulse 88, blood pressure 100/62, respiratory rate 16. He is saturating 97%. HEENT: He is normocephalic. His eyes are anicteric. Neck: Supple. Lungs: Clear to auscultation. Heart: Regular rate and rhythm. Abdomen: Soft. He has suprapubic discomfort. He has no CVA tenderness. He has a well-healed scar on his lower abdomen. Extremities: Without edema. DIAGNOSTIC STUDIES: His white count is 14.2, hemoglobin 11.9, platelets 360. BUN 32, creatinine 1.7, glucose 255. LFTs are normal. Troponins are 0.12 and 0.13. Urinalysis has 537 white cells, 103 red cells, 3+ leukocytes. A urine culture was sent. CT scan findings are as previously stated. He has evidence of left hydronephrosis with calculus and gallstones. He has minimal atelectasis on chest x-ray. He has some sigmoid diverticulosis. ASSESSMENT: In summary, this is a 71-year-old man with a urinary tract infection, diarrhea, rule out Clostridium difficile given recent antibiotics in November, nephrolithiasis with hydronephrosis, history of extended-spectrum beta lactamase Escherichia coli. I will stop his Levaquin and switch him to ertapenem. Obtain stool Clostridium difficile and culture, and Urology consult. All of the above was discussed with the hospitalist's service. STORMY GAMEZ M.D. [id number]
[2017-01-31] MEDS: RANOLAZINE E.R. 500 MG TABLET (FP) PO SCH ×2 (14:11→22:11)
[2017-01-31] MEDS: ISOSORBIDE MONONITRATE 30 MG TAB.SR.24H (FP) PO SCH (14:11)
--- NOTE | 2017-01-31 14:20 | CONSULT ---
Consult Consult Specialty:: Nephrology ( Drs. Weinberg/ Bridger) Referred by:: Hospitalist service Reason for Consultation:: Abnormal Renal function, Acute abdominal pain, Urinary Tract infection, - History Source History Provided By: Patient, Medical Record - Past Medical History Cardio/Vascular: Yes: AFIB (not on AC), CAD (with stent), HTN, Hyperlipdemia Pulmonary: Yes: Sleep Apnea Hepatobiliary: Yes: Cholelithiasis Renal/: Yes: Renal Inusuff, BPH, Renal Calculi Heme/Onc: Yes: Anemia Endocrine: Yes: Diabetes Mellitus - Past Surgical History Past Surgical History: Yes: Appendectomy, Joint Replacement (Hip surgery for fracture right femur, ORIF right ankle, hip replacement) - Alcohol/Substance Use Hx Alcohol Use: No - Smoking History Smoking history: Never smoked Have you smoked in the past 12 months: No Aproximately how many cigarettes per day: 4 If you are a former smoker, when did you quit?: 1995 - Social History Usual Living Arrangement: With Spouse ADL: Independent Home Medications - Allergies Allergies/Adverse Reactions: Allergies Allergy/AdvReac Type Severity Reaction Status Date / Time Pmupnzv-Sjy-Uax Reductase Allergy Unknown Verified 01/30/17 20:51 Inhibitor lactose AdvReac Verified 01/30/17 20:51 - Home Medications Home Medications: Ambulatory Orders Amlodipine Besylate [Norvasc -] 10 mg PO DAILY 12/20/15 Tamsulosin HCl [Flomax -] 0.4 mg PO DAILY #10 capsule 06/01/16 Gemfibrozil [Lopid] 600 mg PO BID 10/14/16 Losartan Potassium [Cozaar -] 50 mg PO DAILY 10/14/16 Nitroglycerin [Nitrostat] 0.4 mg SL PRN PRN 10/14/16 Insulin (Levemir) [Levemir Vial] 14 units SQ ASDIR #0 10/24/16 Isosorbide Mononitrate [Imdur -] 30 mg PO DAILY tab.sr.24h 11/01/16 Ranolazine [Ranexa -] 500 mg PO BID tab 11/01/16 Apixaban [Eliquis -] 5 mg PO BID #30 tablet 11/20/16 Atorvastatin Ca [Lipitor] 10 mg PO HS #30 tablet 11/20/16 Cetirizine HCl [Zyrtec -] 10 mg PO DAILY #30 tablet 11/20/16 Colesevelam HCl [Welchol (Nf)] 625 mg PO BID #30 tablet 11/20/16 Metoprolol Succinate [Toprol XL -] 50 mg PO BID #60 tab.sr.24h 11/20/16 Ranitidine [Zantac -] 150 mg PO DAILY #20 tablet 11/20/16 Insulin Sliding Scale [Novolog Vial Sliding Scale -] 0 units SQ QID PRN Family Disease History - Family Disease History Family Disease History: Diabetes: Grandparent Review of Systems - Review of Systems Constitutional: reports: Loss of Appetite, Weakness Neck: reports: Stiffness Cardiovascular: reports: Chest Pain, Shortness of Breath Respiratory: reports: Cough Gastrointestinal: reports: Abdominal Pain, Diarrhea Genitourinary: reports: Burning, Pain Musculoskeletal: reports: Back Pain, Muscle Pain Neurological: reports: Weakness Physical Exam Vital Signs: Vital Signs Temperature 98.9 F 01/31/17 07:13 Pulse Rate 88 01/31/17 07:13 Respiratory Rate 16 01/31/17 07:13 Blood Pressure 100/62 01/31/17 07:13 O2 Sat by Pulse Oximetry (%) 97 01/31/17 07:13 Constitutional: Yes: Well Nourished, Anxious Eyes: Yes: EOM Intact HENT: Yes: Normocephalic Neck: Yes: Trachea Midline Cardiovascular: Yes: Pulse Irregular, S1, S2 Respiratory: Yes: CTA Bilaterally, Diminished Gastrointestinal: Yes: Normal Bowel Sounds, Soft Renal/: Yes: CVA Tenderness - Left Neurological: Yes: Alert, Oriented, Weakness Problem List - Problems (1) Abdominal pain in male Code(s): R10.9 - UNSPECIFIED ABDOMINAL PAIN (2) Afib Code(s): I48.91 - UNSPECIFIED ATRIAL FIBRILLATION Qualifiers: Atrial fibrillation type: paroxysmal Qualified Code(s): I48.0 - Paroxysmal atrial fibrillation (3) CAD (coronary artery disease) Code(s): I25.10 - ATHSCL HEART DISEASE OF [place] CORONARY ARTERY W/O ANG PCTRS Qualifiers: Coronary Disease-Associated Artery/Lesion type: unspecified vessel or lesion type (4) Confused Code(s): R41.0 - DISORIENTATION, UNSPECIFIED (5) Forgetfulness Code(s): R68.89 - OTHER GENERAL SYMPTOMS AND SIGNS (6) Hyperlipidemia Code(s): E78.5 - HYPERLIPIDEMIA, UNSPECIFIED Qualifiers: Hyperlipidemia type: other hyperlipidemia Qualified Code(s): E78.4 - Other hyperlipidemia (7) UTI (urinary tract infection) Code(s): N39.0 - URINARY TRACT INFECTION, SITE NOT SPECIFIED Qualifiers: Urinary tract infection type: acute cystitis (8) ARF (acute renal failure) Code(s): N17.9 - ACUTE KIDNEY FAILURE, UNSPECIFIED Qualifiers: Acute renal failure type: unspecified Qualified Code(s): N17.9 - Acute kidney failure, unspecified (9) Abdominal pain Code(s): R10.9 - UNSPECIFIED ABDOMINAL PAIN (10) Kidney stone Code(s): N20.0 - CALCULUS OF KIDNEY Assessment/Plan 71 y/o male admitted with acute abdominal pain and azotemia. The Acute Kidney Injury seems to be related to Post Renal factors ( Obstruction ) and possible hemodynamic factors. Has underlying Chronic Kidney disease. H/o Nephrolithiasis, BPH, ESBL E coli UTI, Chronic A Fib, Hypertension. BP tends to run low normal. Will reduce the dose of Losartan. Suggest: evaluation. IV Hydration as ordered. Will continue ABx as ordered by ID services. Reduce the dose of Losartan. Will monitor the renal functions with you. Thanks you. Charity Weinberg MD
[2017-01-31] MEDS ORDERED: LOSARTAN POTASSIUM 25 MG TABLET PO SCH (14:45)
[2017-01-31 15:19] LABS: TROPONIN I 0.15 ng/ml (0.00-0.05)
[2017-01-31] MEDS ORDERED: SODIUM CHLORIDE 500 ML IV STA ×2 (15:23→20:35)
--- NOTE | 2017-01-31 15:34 | PN ---
Progress Note (short form) - Note Progress Note: patient with an obstructing left ureteral stone, nitrite positive urine, elevated WBC with left shift. Recommend ureteral stenting gemini. patient ate at 1230pm, OR ureteral stenting scheduled for 9pm. (8 hours after last meal) Patient is afebrile and hemodynamically stable at present
[2017-01-31] MEDS: METOPROLOL TARTRATE 25 MG TABLET (FP) PO SCH ×2 (16:45→22:11)
[2017-01-31] MEDS: FAMOTIDINE 20 MG/50 ML IVPB 50 ML IVPB SCH ×2 (16:45→22:11)
[2017-01-31] MEDS ORDERED: ACETAMINOPHEN 500 MG TABLET (FP) ONE (16:46)
[2017-01-31] MEDS ORDERED: ACETAMINOPHEN 1000 MG/100 ML VIAL (NON FORMULARY) IVPB ONE (16:55)
[2017-01-31] MEDS ORDERED: VANCOMYCIN 1,250 MG in DEXTROSE 5%-WATER - 250 ML IVPB ONE (17:14)
[2017-01-31] MEDS: AMPICILLIN - 2 GM in SODIUM CHLORIDE 100 ML IVPB SCH ×2 (18:16→21:00)
[2017-01-31] MEDS: MEROPENEM 1 GM in DEXTROSE 5%-WATER - 100 ML IVPB SCH ×2 (18:17→22:11)
--- NOTE | 2017-01-31 18:31 | RAPID ---
Physical Examination Vital Signs: Vital Signs Temperature 99.3 F 01/31/17 14:15 Pulse Rate 101 H 01/31/17 14:15 Respiratory Rate 24 01/31/17 14:15 Blood Pressure 133/74 01/31/17 14:15 O2 Sat by Pulse Oximetry (%) 95 01/31/17 09:00 Rapid Response was called: Patient was found to have fever of 106. Patient was placed on the monitor , given stat tylenol rectally , ice packs were placed on axillary , armpits, groin area, IVF, transferred to ICU, cooling blanket was placed on the patient, Urologist was called arranged IR for nephrostomy tube, was notified, Dr. Segura was notified , stat ampicillin, vancomycin and changed to merepenem. Patient was feeling better in ICU, except his Tmax 106.1 Critical care time of 35min
--- NOTE | 2017-01-31 20:09 | PN ---
Progress Note (short form) - Note Progress Note: Patient developed fevers and tachycardia and IR was called in for a percutaneous nephrostomy. This was done and patient is now returned to ICU Cystoscopy is cancelled as renal drainage has been done.
[2017-01-31 21:11] LABS: TROPONIN I 3.22 ng/ml (0.00-0.05)
--- NOTE | 2017-01-31 21:53 | CONSULT ---
Consult Consult Specialty:: Pulm/CCM Reason for Consultation:: Urosepsis - History of Present Illness Chief Complaint: Abd pain History of Present Illness: 71 year old male that presents to the ED with complaints of progressive epigastric abdominal pain, vomiting and diarrhea. Found to have obstructive uretheral stone with hydronephrosis and LORY. Plan for ureteral stent was delayed to evening because pt had meal. In the interim pt became septic with temp 106F and lactate >2 . He was transferred to ICU. He was started on Ampicillin, vanco them meropenem by ID for hx ESBL E-coli and had percutaneous L nephrostomy tube placed. Ccb NSTEMI. Seen by picker feeder Dr Nix. Trop uptrending 3.22. No c/o chest pain. No ST changes noted on ECG. Aspirin started. Notified picker feeder. - History Source History Provided By: Patient, Family Member, Medical Record Limitations to Obtaining History: No Limitations - Past Medical History Cardio/Vascular: Yes: AFIB (not on AC), CAD (with stent), HTN, Hyperlipdemia Pulmonary: Yes: Sleep Apnea Hepatobiliary: Yes: Cholelithiasis Renal/: Yes: Renal Inusuff, BPH, Renal Calculi Endocrine: Yes: Diabetes Mellitus - Past Surgical History Past Surgical History: Yes: Appendectomy, Joint Replacement (Hip surgery for fracture right femur, ORIF right ankle, hip replacement) - Alcohol/Substance Use Hx Alcohol Use: No - Smoking History Smoking history: Never smoked Have you smoked in the past 12 months: No Aproximately how many cigarettes per day: 4 If you are a former smoker, when did you quit?: 1995 - Social History Usual Living Arrangement: With Spouse ADL: Independent Home Medications - Allergies Allergies/Adverse Reactions: Allergies Allergy/AdvReac Type Severity Reaction Status Date / Time Ztlovlo-Uot-Bit Reductase Allergy Unknown Verified 01/30/17 20:51 Inhibitor lactose AdvReac Verified 01/30/17 20:51 - Home Medications Home Medications: Ambulatory Orders Amlodipine Besylate [Norvasc -] 10 mg PO DAILY 12/20/15 Tamsulosin HCl [Flomax -] 0.4 mg PO DAILY #10 capsule 06/01/16 Gemfibrozil [Lopid] 600 mg PO BID 10/14/16 Losartan Potassium [Cozaar -] 50 mg PO DAILY 10/14/16 Nitroglycerin [Nitrostat] 0.4 mg SL PRN PRN 10/14/16 Insulin (Levemir) [Levemir Vial] 14 units SQ ASDIR #0 10/24/16 Isosorbide Mononitrate [Imdur -] 30 mg PO DAILY tab.sr.24h 11/01/16 Ranolazine [Ranexa -] 500 mg PO BID tab 11/01/16 Apixaban [Eliquis -] 5 mg PO BID #30 tablet 11/20/16 Atorvastatin Ca [Lipitor] 10 mg PO HS #30 tablet 11/20/16 Cetirizine HCl [Zyrtec -] 10 mg PO DAILY #30 tablet 11/20/16 Colesevelam HCl [Welchol (Nf)] 625 mg PO BID #30 tablet 11/20/16 Metoprolol Succinate [Toprol XL -] 50 mg PO BID #60 tab.sr.24h 11/20/16 Ranitidine [Zantac -] 150 mg PO DAILY #20 tablet 11/20/16 Insulin Sliding Scale [Novolog Vial Sliding Scale -] 0 units SQ QID PRN Family Disease History - Family Disease History Family Disease History: Diabetes: Grandparent Review of Systems - Review of Systems Constitutional: reports: Lethargy Eyes: reports: No Symptoms HENT: reports: No Symptoms Neck: reports: No Symptoms Respiratory: reports: No Symptoms Gastrointestinal: reports: Abdominal Pain Genitourinary: reports: No Symptoms Neurological: reports: No Symptoms Physical Exam Vital Signs: Vital Signs Temperature 108 F H 01/31/17 18:00 Pulse Rate 97 H 01/31/17 19:47 Respiratory Rate 20 01/31/17 19:47 Blood Pressure 98/60 01/31/17 19:47 O2 Sat by Pulse Oximetry (%) 100 01/31/17 19:40 Constitutional: Yes: Well Nourished Eyes: Yes: Conjunctiva Clear HENT: Yes: WNL, Atraumatic, Normocephalic Neck: Yes: Supple Cardiovascular: Yes: Regular Rate and Rhythm Respiratory: Yes: CTA Bilaterally, On Nasal O2 Gastrointestinal: Yes: Normal Bowel Sounds, Soft, Other (non tender) Renal/: Yes: Sailnas Present (Lt nephrostomt tube site dry and inact) Extremities: Yes: WNL (warm) Edema: No Peripheral Pulses WNL: Yes Neurological: Yes: Alert, Oriented, Cran Nerves II-XII Intact ...Motor Strength: WNL Psychiatric: Yes: Alert, Oriented Labs: CBC WBC 22.2 K/mm3 (4.0-10.0) H D 01/31/17 21:50 RBC 3.35 M/mm3 (4.00-5.60) L D 01/31/17 21:50 Hgb 9.3 GM/dL (11.7-16.9) L D 01/31/17 21:50 Hct 29.0 % (35.4-49) L D 01/31/17 21:50 MCV 86.7 fl (80-96) 01/31/17 21:50 MCHC 32.2 g/dl (32.0-35.9) 01/31/17 21:50 RDW 19.7 % (11.9-15.9) H 01/31/17 21:50 Plt Count 241 K/MM3 (134-434) D 01/31/17 21:50 MPV 8.8 fl (7.5-11.1) 01/31/17 21:50 Neutrophils % 74.0 % (42.8-82.8) 01/31/17 21:50 Lymphocytes % 3.0 % (8-40) L D 01/31/17 21:50 Monocytes % 7.0 % (3.8-10.2) D 01/31/17 21:50 Eosinophils % 0.0 % (0-4.5) D 01/30/17 22:02 Basophils % 0.2 % (0-2.0) 01/30/17 22:02 Band Neutrophils 12.0 % (0-10) H D 01/31/17 21:50 Metamyelocytes 4 % (0-2) H D 01/31/17 21:50 Differential Comment Manual diff done 01/31/17 21:50 Platelet Estimate Adequate (NORMAL) 01/31/17 21:50 Platelet Comment Few giant plts 01/31/17 21:50 Anisocytosis 1+ 01/31/17 21:50 Morphology Comment Slide scanned 01/31/17 21:50 CMP Sodium 130 mmol/L (136-145) L 01/31/17 21:50 Potassium 3.6 mmol/L (3.5-5.1) 01/31/17 21:50 Chloride 95 mmol/L (98-107) L 01/31/17 21:50 Carbon Dioxide 21 mmol/L (21-32) 01/31/17 21:50 Anion Gap 14 (8-16) 01/31/17 21:50 BUN 39 mg/dL (7-18) H D 01/31/17 21:50 Creatinine 2.7 mg/dL (0.7-1.3) H D 01/31/17 21:50 Creat Clearance w eGFR 23.35 (>60) 01/31/17 21:50 Random Glucose 300 mg/dL (74-106) H 01/31/17 21:50 Lactic Acid 2.726 mmol/L (0.4-2.0) H* 01/31/17 21:50 Calcium 7.6 mg/dL (8.5-10.1) L 01/31/17 21:50 Phosphorus 4.0 mg/dL (2.5-4.9) 01/30/17 22:02 Magnesium 1.2 mg/dL (1.8-2.4) L D 01/30/17 22:02 Total Bilirubin 0.4 mg/dL (0.2-1.0) 01/31/17 21:50 AST 36 U/L (15-37) D 01/31/17 21:50 ALT 15 U/L (12-78) D 01/31/17 21:50 Alkaline Phosphatase 104 U/L (45-117) 01/31/17 21:50 Creatine Kinase 302 IU/L (39-308) D 01/31/17 20:10 Creatine Kinase Index 1.6 % (0.0-5.0) 01/31/17 20:10 CK-MB (CK-2) 4.850 ng/ml (0.5-3.6) H 01/31/17 20:10 CK-MB (CK-2) Rel Index Cancelled 01/31/17 14:03 Troponin I 3.22 ng/ml (0.00-0.05) H* D 01/31/17 20:10 Total Protein 5.8 g/dl (6.4-8.2) L D 01/31/17 21:50 Albumin 2.4 g/dl (3.4-5.0) L D 01/31/17 21:50 Lipase 101 U/L (73-393) 01/30/17 22:02 Current Medications Amlodipine Besylate (Norvasc -) 5 mg PO DAILY [facility] Apixaban (Eliquis -) 5 mg PO BID [facility] Last Admin: 01/31/17 22:48 Dose: 5 mg Aspirin (Ecotrin -) 81 mg PO DAILY [facility] Last Admin: 01/31/17 22:16 Dose: 81 mg Gemfibrozil (Lopid -) 600 mg PO BID [facility] Last Admin: 01/31/17 22:10 Dose: 600 mg Famotidine/Sodium Chloride (Pepcid 20 Mg Premixed Ivpb -) 50 mls @ 100 mls/hr IVPB BID [facility] Stop: 02/01/17 10:29 Last Admin: 01/31/17 22:11 Dose: 100 mls/hr Sodium Chloride (Normal Saline -) 1,000 mls @ 75 mls/hr IV ASDIR [facility] Stop: 02/01/17 17:04 Last Admin: 01/31/17 13:45 Dose: 75 mls/hr Ampicillin Sodium 2 gm/ Sodium (Chloride) 100 mls @ 200 mls/hr IVPB Q6H-IV [facility] Last Admin: 01/31/17 21:00 Dose: 200 mls/hr Meropenem 1 gm/ Dextrose 100 mls @ 100 mls/hr IVPB BID [facility] PRN Reason: Protocol Last Admin: 01/31/17 22:11 Dose: 100 mls/hr Insulin Detemir (Levemir Vial) 14 units SQ ASDIR [facility] Isosorbide Mononitrate (Imdur -) 30 mg PO DAILY [facility] Last Admin: 01/31/17 14:11 Dose: 30 mg Losartan Potassium (Cozaar -) 25 mg PO DAILY [facility] Last Admin: 01/31/17 16:45 Dose: 25 mg Metoprolol Tartrate (Lopressor -) 25 mg PO BID [facility] Last Admin: 01/31/17 22:11 Dose: 25 mg Morphine Sulfate (Morphine Injection -) 1 mg IVPUSH Q4H PRN PRN Reason: PAIN Stop: 02/01/17 03:35 Last Admin: 01/31/17 14:16 Dose: 1 mg Nitroglycerin (Nitrostat -) 0.4 mg SL Q5M PRN PRN Reason: FOR CHEST PAIN Last Admin: 01/31/17 13:12 Dose: 0.4 mg Ondansetron HCl (Zofran Injection) 4 mg IVPB Q6H PRN PRN Reason: NAUSEA Ranitidine HCl (Zantac -) 150 mg PO DAILY [facility] Ranitidine HCl (Zantac -) 150 mg PO BID [facility] Ranolazine (Ranexa -) 500 mg PO BID [facility] Last Admin: 01/31/17 22:11 Dose: 500 mg Imaging - Results Chest X-ray: Report Reviewed (No infiltrates or PTX, RLL atelectasis) Cat Scan: Report Reviewed (Abd/Pelvis CT- Mild to moderate left hydronephrosis with perinephric inflammation , Lt ureteral stone) Problem List - Problems (1) Abdominal pain in male Code(s): R10.9 - UNSPECIFIED ABDOMINAL PAIN (2) Demand ischemia Code(s): I24.8 - OTHER FORMS OF ACUTE ISCHEMIC HEART DISEASE (3) Hydronephrosis with renal and ureteral calculous obstruction Code(s): N13.2 - HYDRONEPHROSIS WITH RENAL AND URETERAL CALCULOUS OBSTRUCTION Assessment/Plan 71 year old male that presents to the ED with complaints of progressive epigastric abdominal pain, vomiting and diarrhea. Found to have obstructive uretheral stone with hydronephrosis now s/p nephrostomy tube placement. Ccb urosepsis, LORY and NSTEMI. ID: Urosepsis; hx ESBL E-coli -Being followed by ID -Continue Ampicillin and meropenem as empiric coverage -IVF -Keep nephrostomy tube patent -f/u cultures -trend temp , WBC and lactate CV; NSTEMI in setting of sepsis; trop still uptrending. -Being followed by cardiology -ASA 81mg qd -Cont antihypertensives and vasodilators as per cards -Monitor for bleeding with Eliquis -Maintain MAP>60 -Trop q8 til plateau -ECG Renal: LORY post renal re obstructive stone -Urology following -IVF -Monitor BMP and UOP -renal dose meds -replete electrolytes -plan for ureteral stenting when stable -Monitor for bleeding/hematuria with anticoagulation Pulm: -Stable on NCO2 3L GI: -POs as tolerated Endo: DMII -Cont Levemir -Sliding scale Proph: H2b
[2017-01-31 21:58] LABS: MCH 27.9 pg (25.7-33.7); MCHC 32.2 g/dl (32.0-35.9); MEAN CELL VOLUME 86.7 fl (80-96); MEAN PLT VOLUME 8.8 fl (7.5-11.1); PLATELET COUNT 241 K/MM3 (134-434); RDW 19.7 % (11.9-15.9); WHITE BLOOD COUNT 22.2 K/mm3 (4.0-10.0)
[2017-01-31] MEDS ORDERED: ATORVASTATIN CA 10 MG TABLET (FP) PO SCH (22:00)
[2017-01-31] MEDS ORDERED: GEMFIBROZIL 600 MG TABLET (FP) PO SCH (22:00)
[2017-01-31] MEDS ORDERED: ASPIRIN 81 MG CHEWABLE TABLETS ONE (22:15)
[2017-01-31] MEDS: ASPIRIN COATED 81 MG TABLET.EC PO SCH (22:16)
[2017-01-31 22:28] LABS: ALBUMIN 2.4 g/dl (3.4-5.0); BILIRUBIN,TOTAL 0.4 mg/dL (0.2-1.0); CALCIUM 7.6 mg/dL (8.5-10.1); CREATININE 2.7 mg/dL (0.7-1.3); TOT PROT 5.8 g/dl (6.4-8.2)
[2017-01-31 22:42] LABS: ANISOCYTOSIS 1+; METAMYELOCYTE 4 % (0-2); PLATELET ESTIMATE ADEQUATE (NORMAL)
[2017-02-01 01:54] LABS: TROPONIN I 8.27 ng/ml (0.00-0.05)
[2017-02-01] MEDS: AMPICILLIN - 2 GM in SODIUM CHLORIDE 100 ML IVPB SCH ×4 (03:56→21:00)
[2017-02-01] MEDS ORDERED: INSULIN DETEMIR 100 UNITS/ML MDV SQ SCH (06:12)
[2017-02-01] MEDS: INSULIN DETEMIR 100 UNITS/ML MDV SQ SCH ×4 (06:29→22:11)
[2017-02-01 06:31] LABS: INR 1.79 (0.82-1.09); PROTHROMBIN TIME (PATIENT) 19.9 SEC (9.98-11.88)
[2017-02-01] MEDS: INSULIN SLIDING SCALE (NOVOLOG) 1 VIAL SQ SCH ×4 (06:35→22:20)
[2017-02-01 06:40] LABS: ALBUMIN 2.5 g/dl (3.4-5.0); CALCIUM 8.1 mg/dL (8.5-10.1)
[2017-02-01 06:44] LABS: BILIRUBIN,TOTAL 0.3 mg/dL (0.2-1.0); CREATININE 2.6 mg/dL (0.7-1.3); PHOSPHOROUS 4.4 mg/dL (2.5-4.9); TOT PROT 6.2 g/dl (6.4-8.2)
--- NOTE | 2017-02-01 07:33 | PN ---
Progress Note (short form) - Note Progress Note: Chief Complaint: Events noted, notes reviewed, transferred to the ICU for sepsis syndrome post urgent percutaneous nephrostomy for an obstructing left ureteral stone, abdominal discomfort resolved, denies any chest pain or dyspnea History of Present Illness: Seen and examined in the ICU. Events noted, notes reviewed, transferred to the ICU for sepsis syndrome post urgent percutaneous nephrostomy for an obstructing left ureteral stone, abdominal discomfort resolved, denies any chest pain or dyspnea Troponin I levels noted consistent with ACS, demand ischemic injury in the setting of sepsis syndrome Sinus rhythm is noted Echocardiography dated 12/21/2015 normal LV size and function, with mild TR and AK MPI study 12/21/2015 revealed small-moderate size apical defect compatible with mild ischemia with preserved LV function Medications: Current Medications Amlodipine Besylate (Norvasc -) 5 mg PO DAILY [facility] Apixaban (Eliquis -) 5 mg PO BID [facility] Last Admin: 01/31/17 22:48 Dose: 5 mg Aspirin (Ecotrin -) 81 mg PO DAILY [facility] Last Admin: 01/31/17 22:16 Dose: 81 mg Gemfibrozil (Lopid -) 600 mg PO BID [facility] Last Admin: 01/31/17 22:10 Dose: 600 mg Famotidine/Sodium Chloride (Pepcid 20 Mg Premixed Ivpb -) 50 mls @ 100 mls/hr IVPB BID [facility] Stop: 02/01/17 10:29 Last Admin: 01/31/17 22:11 Dose: 100 mls/hr Sodium Chloride (Normal Saline -) 1,000 mls @ 75 mls/hr IV ASDIR [facility] Stop: 02/01/17 17:04 Last Admin: 01/31/17 13:45 Dose: 75 mls/hr Ampicillin Sodium 2 gm/ Sodium (Chloride) 100 mls @ 200 mls/hr IVPB Q6H-IV [facility] Last Admin: 02/01/17 03:56 Dose: 200 mls/hr Meropenem 1 gm/ Dextrose 100 mls @ 100 mls/hr IVPB BID [facility] PRN Reason: Protocol Last Admin: 01/31/17 22:11 Dose: 100 mls/hr Insulin Aspart (Novolog Vial Sliding Scale -) 1 vial SQ ACHS [facility] PRN Reason: Protocol Last Admin: 02/01/17 06:35 Dose: 6 units Insulin Detemir (Levemir Vial) 14 units SQ HS [facility] Last Admin: 02/01/17 06:39 Dose: 14 units Isosorbide Mononitrate (Imdur -) 30 mg PO DAILY [facility] Last Admin: 01/31/17 14:11 Dose: 30 mg Losartan Potassium (Cozaar -) 25 mg PO DAILY [facility] Last Admin: 01/31/17 16:45 Dose: 25 mg Metoprolol Tartrate (Lopressor -) 25 mg PO BID [facility] Last Admin: 01/31/17 22:11 Dose: 25 mg Nitroglycerin (Nitrostat -) 0.4 mg SL Q5M PRN PRN Reason: FOR CHEST PAIN Last Admin: 01/31/17 13:12 Dose: 0.4 mg Ondansetron HCl (Zofran Injection) 4 mg IVPB Q6H PRN PRN Reason: NAUSEA Ranitidine HCl (Zantac -) 150 mg PO DAILY [facility] Ranitidine HCl (Zantac -) 150 mg PO BID [facility] Ranolazine (Ranexa -) 500 mg PO BID [facility] Last Admin: 01/31/17 22:11 Dose: 500 mg Review of Systems Cardiovascular: As noted above Respiratory: denies: denies: Cough or Sputum Production Gastrointestinal: denies: Nausea, Vomiting, Diarrhea, Constipation or Abdominal Discomfort Musculoskeletal: No Symptoms Reported Endocrine: No Symptoms Reported Vital Signs: Last Vital Signs Temp Pulse Resp BP Pulse Ox 97.5 F L 70 20 105/48 98 02/01/17 05:52 02/01/17 05:52 02/01/17 05:52 02/01/17 05:52 01/31/17 20:00 Constitutional: No Distress, Calm Neck: Supple Negative JVD Respiratory: Diminished Breath Sounds at the bases Cardiovascular: S1 S2 Regular rate Rhythm Grade 1/6 SM Gastrointestinal: Soft Benign Normal Bowel Sounds Ext: No Edema Labs: CBC, BMP 01/31/17 21:50 02/01/17 05:00 Assessment/Plan ASSESSMENT: 1. Abdominal discomfort with diarrhea related to an obstructing left ureteral stone complicated by uro-sepsis, post percutaneous nephrostomy 2. Chest pain syndrome in a patient with known CAD post multi-vessel PCI stent angina pectoris, with ACS, demand ischemic injury 3. Diastolic LV dysfunction with chronic class I NYHA classification LV failure , compensated 4. Paroxysmal atrial fibrillation previous history of RFA, [id number] score of 5, currently on A/C therapy with NOAC's 5. HTN 6. DM 7. Hyperlipidemia 8. History of KATJA 9. Acute on chronic kidney disease 10. Anemia PLAN: 1. Continue Lopressor, hemodynamics permitting 2. Continue Amlodipine but decrease dosage, hemodynamics permitting 3. Hold Losartan pending renal function recovery 4. Continue Ranexa and Imdur, hemodynamics permitting 5. Continue Eliquis plus ASA with close monitoring of CBC maintaining Hg equal or > 8.0, if future procedures are planned Eliquis therapy need to be withheld 6. Antibiotics as per the primary team martin Tapia M.D.
--- NOTE | 2017-02-01 07:53 | PN ---
Teaching Attending Note Name of Resident: Lisa Gordon ATTENDING PHYSICIAN STATEMENT I saw and evaluated the patient. I reviewed the resident's note and discussed the case with the resident. I agree with the resident's findings and plan as documented. Patient is in ICU, is feeling better with no acute distress. Overnight events noted. Vital Signs Temperature 97.5 F L 02/01/17 05:52 Pulse Rate 70 02/01/17 05:52 Respiratory Rate 20 02/01/17 05:52 Blood Pressure 105/48 02/01/17 05:52 O2 Sat by Pulse Oximetry (%) 98 01/31/17 20:00 CBCD WBC 22.2 K/mm3 (4.0-10.0) H D 01/31/17 21:50 RBC 3.35 M/mm3 (4.00-5.60) L D 01/31/17 21:50 Hgb 9.3 GM/dL (11.7-16.9) L D 01/31/17 21:50 Hct 29.0 % (35.4-49) L D 01/31/17 21:50 MCV 86.7 fl (80-96) 01/31/17 21:50 MCHC 32.2 g/dl (32.0-35.9) 01/31/17 21:50 RDW 19.7 % (11.9-15.9) H 01/31/17 21:50 Plt Count 241 K/MM3 (134-434) D 01/31/17 21:50 MPV 8.8 fl (7.5-11.1) 01/31/17 21:50 CMP Sodium 132 mmol/L (136-145) L 02/01/17 05:00 Potassium 4.1 mmol/L (3.5-5.1) 02/01/17 05:00 Chloride 98 mmol/L (98-107) 02/01/17 05:00 Carbon Dioxide 21 mmol/L (21-32) 02/01/17 05:00 Anion Gap 13 (8-16) 02/01/17 05:00 BUN 44 mg/dL (7-18) H 02/01/17 05:00 Creatinine 2.6 mg/dL (0.7-1.3) H 02/01/17 05:00 Creat Clearance w eGFR 24.38 (>60) 02/01/17 05:00 Random Glucose 325 mg/dL (74-106) H* 02/01/17 05:00 Calcium 8.1 mg/dL (8.5-10.1) L 02/01/17 05:00 Total Bilirubin 0.3 mg/dL (0.2-1.0) D 02/01/17 05:00 AST 40 U/L (15-37) H 02/01/17 05:00 ALT 15 U/L (12-78) 02/01/17 05:00 Alkaline Phosphatase 84 U/L (45-117) 02/01/17 05:00 Total Protein 6.2 g/dl (6.4-8.2) L 02/01/17 05:00 Albumin 2.5 g/dl (3.4-5.0) L 02/01/17 05:00 CARDIAC ENZYMES Creatine Kinase 316 IU/L (39-308) H 02/01/17 00:45 Troponin I 8.27 ng/ml (0.00-0.05) H* D 02/01/17 00:45 Current Medications Generic Name Dose Route Start Last Admin Trade Name Freq PRN Reason Stop Dose Admin Amlodipine Besylate 2.5 mg 02/01/17 10:00 Norvasc - PO DAILY LONNIE Apixaban 5 mg 01/31/17 10:00 01/31/17 22:48 Eliquis - PO 5 mg BID LONNIE Administration Aspirin 81 mg 02/01/17 10:00 01/31/17 22:16 Ecotrin - PO 81 mg DAILY LONNIE Administration Famotidine/Sodium Chloride 50 mls @ 100 mls/hr 01/31/17 13:45 01/31/17 22:11 Pepcid 20 Mg Premixed Ivpb - IVPB 02/01/17 10:29 100 mls/hr BID LONNIE Administration Sodium Chloride 1,000 mls @ 75 mls/hr 01/31/17 13:35 01/31/17 13:45 Normal Saline - IV 02/01/17 17:04 75 mls/hr ASDIR LONNIE Administration Ampicillin Sodium 2 gm/ Sodium 100 mls @ 200 mls/hr 01/31/17 17:00 02/01/17 03: 56 Chloride IVPB 200 mls/hr Q6H-IV LONNIE Administration Meropenem 1 gm/ Dextrose 100 mls @ 100 mls/hr 01/31/17 17:00 01/31/17 22:11 IVPB 100 mls/hr BID [facility] Administration Protocol Insulin Aspart 1 vial 02/01/17 07:00 02/01/17 06:35 Novolog Vial Sliding Scale - SQ 6 units ACHS [facility] Administration Protocol Insulin Detemir 14 units 02/01/17 06:35 02/01/17 06:39 Levemir Vial SQ 14 units HS [facility] Administration Isosorbide Mononitrate 30 mg 01/31/17 12:45 01/31/17 14:11 Imdur - PO 30 mg DAILY [facility] Administration Metoprolol Tartrate 25 mg 01/31/17 12:45 01/31/17 22:11 Lopressor - PO 25 mg BID [facility] Administration Nitroglycerin 0.4 mg 01/31/17 13:26 01/31/17 13:12 Nitrostat - SL 0.4 mg Q5M PRN Administration FOR CHEST PAIN Ondansetron HCl 4 mg 01/31/17 03:36 Zofran Injection IVPB Q6H PRN NAUSEA Ranitidine HCl 150 mg 02/01/17 10:00 Zantac - PO DAILY [facility] Ranitidine HCl 150 mg 02/02/17 10:00 Zantac - PO BID [facility] Ranolazine 500 mg 01/31/17 12:45 01/31/17 22:11 Ranexa - PO 500 mg BID [facility] Administration Home Medications Medication Instructions Recorded Amlodipine Besylate [Norvasc -] 10 mg PO DAILY 12/20/15 Tamsulosin HCl [Flomax -] 0.4 mg PO DAILY #10 capsule 06/01/16 Gemfibrozil [Lopid] 600 mg PO BID 10/14/16 Losartan Potassium [Cozaar -] 50 mg PO DAILY 10/14/16 Nitroglycerin [Nitrostat] 0.4 mg SL PRN PRN 10/14/16 Insulin (Levemir) [Levemir Vial] 14 units SQ ASDIR #0 10/24/16 Isosorbide Mononitrate [Imdur -] 30 mg PO DAILY tab.sr.24h 11/01/16 Ranolazine [Ranexa -] 500 mg PO BID tab 11/01/16 Apixaban [Eliquis -] 5 mg PO BID #30 tablet 11/20/16 Atorvastatin Ca [Lipitor] 10 mg PO HS #30 tablet 11/20/16 Cetirizine HCl [Zyrtec -] 10 mg PO DAILY #30 tablet 11/20/16 Colesevelam HCl [Welchol (Nf)] 625 mg PO BID #30 tablet 11/20/16 Metoprolol Succinate [Toprol XL -] 50 mg PO BID #60 tab.sr.24h 11/20/16 Ranitidine [Zantac -] 150 mg PO DAILY #20 tablet 11/20/16 Insulin Sliding Scale [Novolog 0 units SQ QID PRN 01/31/17 Vial Sliding Scale -] ROS/PE as per resident ECG - no acute abnormality, no acute ST changes ASSESSMENT/PLAN: 71 year old male that presents to the Emergency Department with abdominal pain and atypical chest pain. # s/p Abdominal discomfort due to an obstructing left ureteral stone which was complicated by sepsis due to acute UTI with ESBL with Mild to moderate Hydronephrosis with perinephric inflammation and ureteral kidney sotne with obstruction s/p percutaneous nephrostomy by IR since patient developed 108 fever last night. # Demand Ischemia injury due severe sepsis will continue to trend troponin. # Acute chest pain syndrome s/p SL nitro and Morphine 2mg IV for chest # Acute renal failure due to nephrolithiasis /UTI. Continue IVF, Monitor creatinine function, Nephrology consult Dr. Sparks appreciated # Acute UTI with hx of ESBL will place the patient on Rocephin , ID consult Dr. Segura, Urine culture is pending. # Mild to moderate Hydronephrosis with perinephric inflammation , urologist seen the patient #Paroxysmal atrial fibrillation with [id number] score of 5, on Eliquis continue # Moderate enlargement of prostate ;Urologist on the case # Hypertension - Uncontrolled possible due to chest pain . given SL nitro , morphine # Diabetes, check hemoglobin A1C, Monitor blood glucose # Acute Hyponatremia IVF # Diarrhea stool for culture DVT ppx : Eliquis
--- NOTE | 2017-02-01 09:01 | PN ---
Progress Note (short form) - Note Progress Note: alert doing well no abdominal pain no vomiting no diarrhea no fever high grade fever 108 with rigors yesterday! s/p PCN last night Vital Signs Period Temp Pulse Resp BP Sys/Crawford Pulse Ox Last 24 Hr 97.5 F-108 F 70-119 18-24 75-138/48-79 95-100 cor-rrr lungs clear abd soft,nt ext no edema +Right PCN +coughlin CBC, BMP 01/31/17 21:50 02/01/17 05:00 cultures pending a/p sepsis/UTI s/p PCN for obstructing stone cultures pending history of ESBL organisms and VRE amp/meropenem received vancomycin last nigh LORY f/u cultures now afebrile
--- NOTE | 2017-02-01 09:31 | PN ---
Progress Note (short form) - Note Progress Note: Patient seen and examined in the ICU. Awake and alert. No CP or SOB. No pain/discomfort at the nephrostomy site. Noted rise in troponin. Intake & Output 01/29/17 01/30/17 01/31/17 02/01/17 23:59 23:59 23:59 23:59 Intake Total 2000 1150 Output Total 400 450 Balance 1600 700 Weight 230 lb 230 lb Last Vital Signs Temp Pulse Resp BP Pulse Ox 97.5 F L 70 20 105/48 98 02/01/17 05:52 02/01/17 05:52 02/01/17 05:52 02/01/17 05:52 01/31/17 20:00 Active Medications Amlodipine Besylate (Norvasc -) 2.5 mg PO DAILY [facility] Apixaban (Eliquis -) 5 mg PO BID [facility] Last Admin: 01/31/17 22:48 Dose: 5 mg Aspirin (Ecotrin -) 81 mg PO DAILY [facility] Last Admin: 01/31/17 22:16 Dose: 81 mg Famotidine/Sodium Chloride (Pepcid 20 Mg Premixed Ivpb -) 50 mls @ 100 mls/hr IVPB BID [facility] Stop: 02/01/17 10:29 Last Admin: 01/31/17 22:11 Dose: 100 mls/hr Sodium Chloride (Normal Saline -) 1,000 mls @ 75 mls/hr IV ASDIR [facility] Stop: 02/01/17 17:04 Last Admin: 01/31/17 13:45 Dose: 75 mls/hr Ampicillin Sodium 2 gm/ Sodium (Chloride) 100 mls @ 200 mls/hr IVPB Q6H-IV [facility] Last Admin: 02/01/17 03:56 Dose: 200 mls/hr Meropenem 1 gm/ Dextrose 100 mls @ 100 mls/hr IVPB BID [facility] PRN Reason: Protocol Last Admin: 01/31/17 22:11 Dose: 100 mls/hr Insulin Aspart (Novolog Vial Sliding Scale -) 1 vial SQ ACHS [facility] PRN Reason: Protocol Last Admin: 02/01/17 06:35 Dose: 6 units Insulin Detemir (Levemir Vial) 14 units SQ HS [facility] Last Admin: 02/01/17 06:39 Dose: 14 units Isosorbide Mononitrate (Imdur -) 30 mg PO DAILY [facility] Last Admin: 01/31/17 14:11 Dose: 30 mg Metoprolol Tartrate (Lopressor -) 25 mg PO BID [facility] Last Admin: 01/31/17 22:11 Dose: 25 mg Nitroglycerin (Nitrostat -) 0.4 mg SL Q5M PRN PRN Reason: FOR CHEST PAIN Last Admin: 01/31/17 13:12 Dose: 0.4 mg Ondansetron HCl (Zofran Injection) 4 mg IVPB Q6H PRN PRN Reason: NAUSEA Ranitidine HCl (Zantac -) 150 mg PO DAILY [facility] Ranitidine HCl (Zantac -) 150 mg PO BID [facility] Ranolazine (Ranexa -) 500 mg PO BID [facility] Last Admin: 01/31/17 22:11 Dose: 500 mg Constitutional: Yes: Awake and alert, NAD Eyes: Yes: Conjunctiva Clear HENT: Yes: WNL, Atraumatic, Normocephalic Neck: Yes: Supple Cardiovascular: Yes: Regular Rate and Rhythm Respiratory: Yes: CTA Bilaterally, On Nasal O2 Gastrointestinal: Yes: Normal Bowel Sounds, Soft, Other (non tender) Renal/: Yes: [place] Present (Lt nephrostomy tube site) Extremities: Yes: WNL (warm) Edema: No Peripheral Pulses WNL: Yes Neurological: Yes: Alert, Non-focal ...Motor Strength: WNL Psychiatric: Yes: Alert, Oriented Labs: Problem List - Problems (1) Abdominal pain in male Code(s): R10.9 - UNSPECIFIED ABDOMINAL PAIN (2) Demand ischemia Code(s): I24.8 - OTHER FORMS OF ACUTE ISCHEMIC HEART DISEASE (3) Hydronephrosis with renal and ureteral calculous obstruction Code(s): N13.2 - HYDRONEPHROSIS WITH RENAL AND URETERAL CALCULOUS OBSTRUCTION Assessment/Plan ABX per ID O2 as needed Monitor UOP Follow cultures ASA Monitor H&H PO as tolerated Glycemic control ICU monitoring Dr Frankel CCTime 35"
[2017-02-01] MEDS ORDERED: PT OWN MED DRAWER 7, Y5N ONE ×2 (09:55→21:43)
[2017-02-01] MEDS ORDERED: amLODIPine BESYLATE 5 MG TABLET (FP) PO SCH (10:00)
[2017-02-01] MEDS ORDERED: LOSARTAN POTASSIUM 50 MG TABLET (FP) PO SCH (10:00)
[2017-02-01] MEDS ORDERED: RANITIDINE HCL 150 MG TABLET (FP) PO SCH (10:00)
[2017-02-01] MEDS: MEROPENEM 1 GM in DEXTROSE 5%-WATER - 100 ML IVPB SCH ×2 (10:03→22:12)
[2017-02-01] MEDS: APIXABAN 5 MG TABLET PO SCH ×2 (10:04→22:11)
[2017-02-01] MEDS: RANOLAZINE E.R. 500 MG TABLET (FP) PO SCH ×2 (10:04→22:12)
[2017-02-01] MEDS: METOPROLOL TARTRATE 25 MG TABLET (FP) PO SCH ×2 (10:04→22:12)
[2017-02-01] MEDS: ASPIRIN COATED 81 MG TABLET.EC PO SCH (10:06)
[2017-02-01] MEDS: ISOSORBIDE MONONITRATE 30 MG TAB.SR.24H (FP) PO SCH (10:06)
[2017-02-01] MEDS: amLODIPine BESYLATE 5 MG TABLET (FP) PO SCH (10:26)
--- NOTE | 2017-02-01 12:56 | PN ---
Addendum entered and electronically signed by Lisa Gordon RES 02/01/17 13: 53: Lactic acidosis -trend, IVF hydration Original Note: Physical Exam: SUBJECTIVE: Patient seen and examined Patient resting in bed. Afebrile, hemodynamically stable. No acute events. feels well. deneis chest pain, sob, h/a, abd pain, n/v, diarrhea. Urine in L nephrostomy tube ball maker in color today. OBJECTIVE: Vital Signs Period Temp Pulse Resp BP Sys/Crawford Pulse Ox Last 24 Hr 97.5 F-108 F 70-119 18-24 75-138/48-79 98-100 GENERAL: The patient is awake, alert, and fully oriented, in no acute distress. HEAD: Normal with no signs of trauma. EYES: PERRL, extraocular movements intact, sclera anicteric, conjunctiva clear. No ptosis. ENT: moist mucous membranes. NECK: supple, no jvd. LUNGS: Breath sounds equal, clear to auscultation bilaterally, bibasilar crackles HEART: Regular rate and rhythm, S1, S2 ABDOMEN: Soft, nontender, nondistended, normoactive bowel sounds. L nephrostomy tube in place EXTREMITIES: 2+ pulses, warm, well-perfused, no edema. NEUROLOGICAL: Cranial nerves II through XII grossly intact. Normal speech, gait not observed. PSYCH: Normal mood, normal affect. SKIN: Warm, dry Laboratory Results - last 24 hr 01/31/17 01/31/17 01/31/17 14:03 14:03 20:10 WBC RBC Hgb Hct MCV MCHC RDW Plt Count MPV Neutrophils % Lymphocytes % Monocytes % Band Neutrophils Metamyelocytes Differential Comment Platelet Estimate Platelet Comment Anisocytosis Morphology Comment INR Sodium Potassium Chloride Carbon Dioxide Anion Gap BUN Creatinine Creat Clearance w eGFR Random Glucose Hemoglobin A1c % Lactic Acid Calcium Phosphorus Total Bilirubin AST ALT Alkaline Phosphatase Creatine Kinase 206 D 302 D Creatine Kinase Index < 1.0 1.6 CK-MB (CK-2) < 1.000 4.850 H CK-MB (CK-2) Rel Index Cancelled Troponin I 0.15 H 3.22 H* D Total Protein Albumin 01/31/17 01/31/17 01/31/17 20:10 21:50 21:50 WBC 22.2 H D RBC 3.35 L D Hgb 9.3 L D Hct 29.0 L D MCV 86.7 MCHC 32.2 RDW 19.7 H Plt Count 241 D MPV 8.8 Neutrophils % 74.0 Lymphocytes % 3.0 L D Monocytes % 7.0 D Band Neutrophils 12.0 H D Metamyelocytes 4 H D Differential Comment Manual diff done Platelet Estimate Adequate Platelet Comment Few giant plts Anisocytosis 1+ Morphology Comment Slide scanned INR Sodium 130 L Potassium 3.6 Chloride 95 L Carbon Dioxide 21 Anion Gap 14 BUN 39 H D Creatinine 2.7 H D Creat Clearance w eGFR 23.35 Random Glucose 300 H Hemoglobin A1c % Lactic Acid Calcium 7.6 L Phosphorus Total Bilirubin 0.4 AST 36 D ALT 15 D Alkaline Phosphatase 104 Creatine Kinase Creatine Kinase Index CK-MB (CK-2) CK-MB (CK-2) Rel Index Cancelled Troponin I Total Protein 5.8 L D Albumin 2.4 L D 01/31/17 02/01/17 02/01/17 21:50 00:45 00:45 WBC RBC Hgb Hct MCV MCHC RDW Plt Count MPV Neutrophils % Lymphocytes % Monocytes % Band Neutrophils Metamyelocytes Differential Comment Platelet Estimate Platelet Comment Anisocytosis Morphology Comment INR Sodium Potassium Chloride Carbon Dioxide Anion Gap BUN Creatinine Creat Clearance w eGFR Random Glucose Hemoglobin A1c % Lactic Acid 2.726 H* Calcium Phosphorus Total Bilirubin AST ALT Alkaline Phosphatase Creatine Kinase 316 H Creatine Kinase Index 2.1 CK-MB (CK-2) 6.478 H CK-MB (CK-2) Rel Index Cancelled Troponin I 8.27 H* D Total Protein Albumin 02/01/17 02/01/17 02/01/17 05:00 05:00 05:00 WBC RBC Hgb Hct MCV MCHC RDW Plt Count MPV Neutrophils % Lymphocytes % Monocytes % Band Neutrophils Metamyelocytes Differential Comment Platelet Estimate Platelet Comment Anisocytosis Morphology Comment INR 1.79 H D Sodium 132 L Potassium 4.1 Chloride 98 Carbon Dioxide 21 Anion Gap 13 BUN 44 H Creatinine 2.6 H Creat Clearance w eGFR 24.38 Random Glucose 325 H* Hemoglobin A1c % 8.8 H D Lactic Acid Calcium 8.1 L Phosphorus 4.4 Total Bilirubin 0.3 D AST 40 H ALT 15 Alkaline Phosphatase 84 Creatine Kinase Creatine Kinase Index CK-MB (CK-2) CK-MB (CK-2) Rel Index Troponin I Total Protein 6.2 L Albumin 2.5 L 02/01/17 10:00 WBC RBC Hgb Hct MCV MCHC RDW Plt Count MPV Neutrophils % Lymphocytes % Monocytes % Band Neutrophils Metamyelocytes Differential Comment Platelet Estimate Platelet Comment Anisocytosis Morphology Comment INR Sodium Potassium Chloride Carbon Dioxide Anion Gap BUN Creatinine Creat Clearance w eGFR Random Glucose Hemoglobin A1c % Lactic Acid 1.604 Calcium Phosphorus Total Bilirubin AST ALT Alkaline Phosphatase Creatine Kinase Creatine Kinase Index CK-MB (CK-2) CK-MB (CK-2) Rel Index Troponin I Total Protein Albumin Active Medications Generic Name Dose Route Start Last Admin Trade Name Freq PRN Reason Stop Dose Admin Amlodipine Besylate 2.5 mg 02/01/17 10:00 02/01/17 10:26 Norvasc - PO 2.5 mg DAILY LONNIE Administration Apixaban 5 mg 01/31/17 10:00 02/01/17 10:04 Eliquis - PO 5 mg BID LONNIE Administration Aspirin 81 mg 02/01/17 10:00 02/01/17 10:06 Ecotrin - PO 81 mg DAILY LONNIE Administration Sodium Chloride 1,000 mls @ 75 mls/hr 01/31/17 13:35 01/31/17 13:45 Normal Saline - IV 02/01/17 17:04 75 mls/hr ASDIR LONNIE Administration Ampicillin Sodium 2 gm/ Sodium 100 mls @ 200 mls/hr 01/31/17 17:00 02/01/17 10: 07 Chloride IVPB 200 mls/hr Q6H-IV LONNIE Administration Meropenem 1 gm/ Dextrose 100 mls @ 100 mls/hr 01/31/17 17:00 02/01/17 10:03 IVPB 100 mls/hr BID LONNIE Administration Protocol Insulin Aspart 1 vial 02/01/17 07:00 02/01/17 06:35 Novolog Vial Sliding Scale - SQ 6 units ACHS LONNIE Administration Protocol Insulin Detemir 14 units 02/01/17 06:35 02/01/17 06:39 Levemir Vial SQ 14 units HS LONNIE Administration Isosorbide Mononitrate 30 mg 01/31/17 12:45 02/01/17 10:06 Imdur - PO 30 mg DAILY LONNIE Administration Metoprolol Tartrate 25 mg 01/31/17 12:45 02/01/17 10:04 Lopressor - PO 25 mg BID LONNIE Administration Nitroglycerin 0.4 mg 01/31/17 13:26 01/31/17 13:12 Nitrostat - SL 0.4 mg Q5M PRN Administration FOR CHEST PAIN Ondansetron HCl 4 mg 01/31/17 03:36 Zofran Injection IVPB Q6H PRN NAUSEA Ranitidine HCl 150 mg 02/01/17 10:00 02/01/17 10:05 Zantac - PO 150 mg DAILY LONNIE Administration Ranitidine HCl 150 mg 02/02/17 10:00 Zantac - PO BID LONNIE Ranolazine 500 mg 01/31/17 12:45 02/01/17 10:04 Ranexa - PO 500 mg BID LONNIE Administration ASSESSMENT/PLAN: This is a 71 yo M with PMH of CAD, coronary PCI/stents, CHF, paroxysmal a fib on eliquis, HTN, HLD< DM, Cholelithiasis and Nephrolithiasis, who presented to ED with abd pain, diarrhea, and atypical chest pain lasting for several days Urosepsis -s/p L perc nephrostomy for obstructing stone -UA appreciated -coughlin -ampicilliln, meropenem (history of ESBL) -IVF hydration -ureteral stent when stable -ID consult -Urology sonsult Demand ischemia -troponin trending up 8.2 today -asymptomatic -continue trending -NTG prn -asa 81 d CAD -compensated -imdur 30 d -lopressor 25 bid HTN -amlodipine 2.5 d LORY -Renal US, CT appreciated: mild/moderate hydronephrosis, obstructive stone -obstructive and cardiorenal component -nephorology consult -Strict I/O -IV hydration A fib -eliquis DM -sliding scale -Levemir 14 HS -BGM FEN NS@75 lytes stable cardiac diet Dispo: ICU one more day Problem List - Problems (1) Afib Code(s): I48.91 - UNSPECIFIED ATRIAL FIBRILLATION Qualifiers: Atrial fibrillation type: paroxysmal Qualified Code(s): I48.0 - Paroxysmal atrial fibrillation (2) CAD (coronary artery disease) Code(s): I25.10 - ATHSCL HEART DISEASE OF [place] CORONARY ARTERY W/O ANG PCTRS Qualifiers: Coronary Disease-Associated Artery/Lesion type: unspecified vessel or lesion type (3) Demand ischemia Code(s): I24.8 - OTHER FORMS OF ACUTE ISCHEMIC HEART DISEASE (4) Hydronephrosis with renal and ureteral calculous obstruction Code(s): N13.2 - HYDRONEPHROSIS WITH RENAL AND URETERAL CALCULOUS OBSTRUCTION (5) Hyperlipidemia Code(s): E78.5 - HYPERLIPIDEMIA, UNSPECIFIED Qualifiers: Hyperlipidemia type: other hyperlipidemia Qualified Code(s): E78.4 - Other hyperlipidemia (6) UTI (urinary tract infection) Code(s): N39.0 - URINARY TRACT INFECTION, SITE NOT SPECIFIED Qualifiers: Urinary tract infection type: acute cystitis (7) Atrial fibrillation by electrocardiography Code(s): I48.91 - UNSPECIFIED ATRIAL FIBRILLATION (8) Bladder stones Code(s): N21.0 - CALCULUS IN BLADDER (9) Chest pain Code(s): R07.9 - CHEST PAIN, UNSPECIFIED Qualifiers: Chest pain type: unspecified Qualified Code(s): R07.9 - Chest pain, unspecified (10) Cholelithiasis without obstruction Code(s): K80.20 - CALCULUS OF GALLBLADDER W/O CHOLECYSTITIS W/O OBSTRUCTION (11) Controlled diabetes mellitus with diabetic nephropathy, with long-term current use of insulin Code(s): E11.21 - TYPE 2 DIABETES MELLITUS WITH DIABETIC NEPHROPATHY Z79.4 - INTERMEDIATE (CURRENT) USE OF INSULIN Qualifiers: 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 type: type 2 Qualified Code(s): E11.21 - Type 2 diabetes mellitus with diabetic nephropathy; Z79.4 - exterminator helper termite (current) use of insulin (12) 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 Code(s): E11.9 - TYPE 2 DIABETES MELLITUS WITHOUT COMPLICATIONS Qualifiers: 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 type: type 2 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 complication status: without complication 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 exterminator insulin use: without exterminator use Qualified Code(s): E11.9 - Type 2 diabetes mellitus without complications (13) 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 due to underlying condition with hyperglycemia Code(s): E08.65 - DIABETES DUE TO UNDERLYING CONDITION W HYPERGLYCEMIA Qualifiers: 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 prison insulin use: with exterminator use Qualified Code(s): E08.65 - 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 due to underlying condition with hyperglycemia (14) Gall stone Code(s): K80.20 - CALCULUS OF GALLBLADDER W/O CHOLECYSTITIS W/O OBSTRUCTION (15) HTN (hypertension) Code(s): I10 - ESSENTIAL (PRIMARY) HYPERTENSION Qualifiers: Hypertension type: essential hypertension Qualified Code(s): I10 - Essential (primary) hypertension (16) Kidney stone Code(s): N20.0 - CALCULUS OF KIDNEY (17) Paroxysmal a-fib Code(s): I48.0 - PAROXYSMAL ATRIAL FIBRILLATION (18) S/P coronary artery stent placement Code(s): Z95.5 - PRESENCE OF CORONARY ANGIOPLASTY IMPLANT AND GRAFT (19) Sepsis Code(s): A41.9 - SEPSIS, UNSPECIFIED ORGANISM Qualifiers: Sepsis type: sepsis due to unspecified organism Qualified Code(s): A41.9 - Sepsis, unspecified organism (20) Urinary retention Code(s): R33.9 - RETENTION OF URINE, UNSPECIFIED Visit type - Emergency Visit Emergency Visit: Yes ED Registration Date: 01/31/17 Care time: The patient presented to the Emergency Department on the above date and was hospitalized for further evaluation of their emergent condition. - New Patient This patient is new to me today: Yes Date on this admission: 02/01/17 - Critical Care Critical Care patient: Yes Total Critical Care Time (in minutes): 41 Critical Care Statement: The care of this patient involved high complexity decision making to prevent further life threatening deterioration of the patient 's condition and/or to evalute & treat vital organ system(s) failure or risk of failure. - Discharge Referral Referred to [facility] Med [facility] No
[2017-02-01 14:59] LABS: MCHC 32.2 g/dl (32.0-35.9); MEAN CELL VOLUME 86.9 fl (80-96); MEAN PLT VOLUME 9.2 fl (7.5-11.1); PLATELET COUNT 222 K/MM3 (134-434); RDW 20.1 % (11.9-15.9); WHITE BLOOD COUNT 19.7 K/mm3 (4.0-10.0)
[2017-02-01] MEDS: SODIUM CHLORIDE 1,000 ML IV SCH (15:52)
--- NOTE | 2017-02-01 16:10 | PN ---
Progress Note (short form) - Note Progress Note: Renal Follow up for LORY on CKD Pt seen and examined in the ICU has some left sided flank pain no sob or chest pain no N/V/D nephrostomy tube draining urine Vital Signs Temperature 97.5 F L 02/01/17 05:52 Pulse Rate 70 02/01/17 05:52 Respiratory Rate 20 02/01/17 09:00 Blood Pressure 105/48 02/01/17 05:52 O2 Sat by Pulse Oximetry (%) 98 01/31/17 20:00 Intake & Output 01/29/17 01/30/17 01/31/17 02/01/17 23:59 23:59 23:59 23:59 Intake Total 2000 1550 Output Total 400 1050 Balance 1600 500 Weight 230 lb 230 lb Gen: NAD CVS: RRR, No M/R Lungs: CTA, no rales Abd: Soft NT/ND Ext: No edema, clubbing or cyanosis : Left sided nephrostomy tube in place CBC, BMP 02/01/17 14:30 02/01/17 05:00 Laboratory Tests 02/01/17 02/01/17 05:00 15:00 Calcium 8.1 L Phosphorus 4.4 Troponin I 13.60 H* D Albumin 2.5 L Current Medications Amlodipine Besylate (Norvasc -) 2.5 mg PO DAILY [facility] Last Admin: 02/01/17 10:26 Dose: 2.5 mg Apixaban (Eliquis -) 5 mg PO BID [facility] Last Admin: 02/01/17 10:04 Dose: 5 mg Aspirin (Ecotrin -) 81 mg PO DAILY [facility] Last Admin: 02/01/17 10:06 Dose: 81 mg Sodium Chloride (Normal Saline -) 1,000 mls @ 75 mls/hr IV ASDIR LONNIE Stop: 02/01/17 17:04 Last Admin: 02/01/17 15:52 Dose: 75 mls/hr Ampicillin Sodium 2 gm/ Sodium (Chloride) 100 mls @ 200 mls/hr IVPB Q6H-IV LONNIE Last Admin: 02/01/17 15:51 Dose: 200 mls/hr Meropenem 1 gm/ Dextrose 100 mls @ 100 mls/hr IVPB BID LONNIE PRN Reason: Protocol Last Admin: 02/01/17 10:03 Dose: 100 mls/hr Insulin Aspart (Novolog Vial Sliding Scale -) 1 vial SQ ACHS [facility] PRN Reason: Protocol Last Admin: 02/01/17 12:00 Dose: 6 units Insulin Detemir (Levemir Vial) 14 units SQ HS [facility] Last Admin: 02/01/17 06:39 Dose: 14 units Isosorbide Mononitrate (Imdur -) 30 mg PO DAILY [facility] Last Admin: 02/01/17 10:06 Dose: 30 mg Metoprolol Tartrate (Lopressor -) 25 mg PO BID [facility] Last Admin: 02/01/17 10:04 Dose: 25 mg Nitroglycerin (Nitrostat -) 0.4 mg SL Q5M PRN PRN Reason: FOR CHEST PAIN Last Admin: 01/31/17 13:12 Dose: 0.4 mg Ondansetron HCl (Zofran Injection) 4 mg IVPB Q6H PRN PRN Reason: NAUSEA Ranitidine HCl (Zantac -) 150 mg PO DAILY [facility] Last Admin: 02/01/17 10:05 Dose: 150 mg Ranitidine HCl (Zantac -) 150 mg PO BID [facility] Ranolazine (Ranexa -) 500 mg PO BID [facility] Last Admin: 02/01/17 10:04 Dose: 500 mg A/P This is a 71 year old Gentleman with PMhx of CKD stage 3 (B/L Cr 1.4-1.6), DM, CAD, Hx of Nephrolithiasis presented with Acute Abd pain and found to have left sided hydronephrosis with urethral stone #LORY secondary to obstruction s/p Nephrostomy tube with good output Cr remains elevated continue isotonic saline keep MAP .>65 Consider repeat imaging if indicated as per urology #UTI continue Abx f/u culture #Elevated Troponin/? Demand ischemia vs. [place] troponin continues to up trend no chest pain Cardiology follow up #Hx of Hyperrtension now with marginanl BP d/c Norvasc for now continue Metorpolol Thank you Armando Sparks DO
[2017-02-01] MEDS: FAMOTIDINE 20 MG/50 ML IVPB 50 ML IVPB SCH (17:13)
[2017-02-01 17:26] LABS: METAMYELOCYTE 1 % (0-2)
[2017-02-01 17:27] LABS: ANISOCYTOSIS 1+; PLATELET ESTIMATE ADEQUATE (NORMAL)
[2017-02-02] MEDS: AMPICILLIN - 2 GM in SODIUM CHLORIDE 100 ML IVPB SCH (03:19)
[2017-02-02 06:17] LABS: BASOPHIL 0.3 % (0-2.0); EOSINOPHIL 1.2 % (0-4.5); MCH 28.3 pg (25.7-33.7); MEAN CELL VOLUME 85.8 fl (80-96); MEAN PLT VOLUME 9.8 fl (7.5-11.1); NEUTROPHILS 82.7 % (42.8-82.8); PLATELET COUNT 237 K/MM3 (134-434); RDW 19.8 % (11.9-15.9); WHITE BLOOD COUNT 13.8 K/mm3 (4.0-10.0)
[2017-02-02] MEDS: INSULIN SLIDING SCALE (NOVOLOG) 1 VIAL SQ SCH ×4 (06:26→22:54)
[2017-02-02 06:45] LABS: ALBUMIN 2.3 g/dl (3.4-5.0); CALCIUM 8.1 mg/dL (8.5-10.1); MAGNESIUM 1.8 mg/dL (1.8-2.4); PHOSPHOROUS 2.7 mg/dL (2.5-4.9)
[2017-02-02 06:47] LABS: BILIRUBIN,TOTAL 0.2 mg/dL (0.2-1.0); CREATININE 1.9 mg/dL (0.7-1.3); TOT PROT 5.8 g/dl (6.4-8.2)
--- NOTE | 2017-02-02 08:25 | PN ---
Progress Note, Physician Chief Complaint: ID Meropenem Ampicillin Much better now no longer 106 ! - Current Medication List Current Medications: Active Medications Amlodipine Besylate (Norvasc -) 2.5 mg PO DAILY [facility] Last Admin: 02/01/17 10:26 Dose: 2.5 mg Apixaban (Eliquis -) 5 mg PO BID [facility] Last Admin: 02/01/17 22:11 Dose: 5 mg Aspirin (Ecotrin -) 81 mg PO DAILY [facility] Last Admin: 02/01/17 10:06 Dose: 81 mg Ampicillin Sodium 2 gm/ Sodium (Chloride) 100 mls @ 200 mls/hr IVPB Q6H-IV [facility] Last Admin: 02/02/17 03:19 Dose: 200 mls/hr Meropenem 1 gm/ Dextrose 100 mls @ 100 mls/hr IVPB BID [facility] PRN Reason: Protocol Last Admin: 02/01/17 22:12 Dose: 100 mls/hr Insulin Aspart (Novolog Vial Sliding Scale -) 1 vial SQ ACHS [facility] PRN Reason: Protocol Last Admin: 02/02/17 06:26 Dose: Not Given Insulin Detemir (Levemir Vial) 14 units SQ [facility] Last Admin: 02/01/17 22:11 Dose: 14 units Isosorbide Mononitrate (Imdur -) 30 mg PO DAILY [facility] Last Admin: 02/01/17 10:06 Dose: 30 mg Metoprolol Tartrate (Lopressor -) 25 mg PO BID [facility] Last Admin: 02/01/17 22:12 Dose: 25 mg Nitroglycerin (Nitrostat -) 0.4 mg SL Q5M PRN PRN Reason: FOR CHEST PAIN Last Admin: 01/31/17 13:12 Dose: 0.4 mg Ondansetron HCl (Zofran Injection) 4 mg IVPB Q6H PRN PRN Reason: NAUSEA Ranitidine HCl (Zantac -) 150 mg PO BID [facility] Ranolazine (Ranexa -) 500 mg PO BID [facility] Last Admin: 02/01/17 22:12 Dose: 500 mg - Objective Vital Signs: Vital Signs Temperature 99.1 F 02/02/17 06:00 Pulse Rate 70 02/02/17 06:00 Respiratory Rate 18 02/02/17 06:00 Blood Pressure 106/48 02/02/17 06:00 O2 Sat by Pulse Oximetry (%) 96 02/01/17 20:00 Constitutional: Yes: Well Nourished, No Distress HENT: Yes: WNL, Atraumatic Neck: Yes: WNL, Supple, Tenderness Cardiovascular: Yes: S1, S2 Respiratory: Yes: WNL, Regular, CTA Bilaterally, Rhonchi. No: Rales, Wheezes Gastrointestinal: Yes: WNL, Normal Bowel Sounds, Soft. No: Tenderness, Tenderness, Epigastrium, Tenderness, Rebound Edema: No Labs: CBC, BMP 02/02/17 05:20 02/02/17 05:20 INR, PTT INR 1.79 (0.82-1.09) H D 02/01/17 05:00 Assessment/Plan Microbiology 01/31/17 14:25 Blood - Peripheral Venous Blood Culture - Preliminary NO GROWTH OBTAINED AFTER 24 HOURS, INCUBATION TO CONTINUE FOR 4 DAYS. 01/31/17 14:03 Blood - Peripheral Venous Blood Culture - Preliminary NO GROWTH OBTAINED AFTER 24 HOURS, INCUBATION TO CONTINUE FOR 4 DAYS. 01/31/17 02:20 Urine - Urine Clean Catch Urine Culture - Preliminary Lactose Fermenting Neg Bacilli Lactose Fermenting Neg Bacilli#2 Laboratory Tests 02/01/17 02/02/17 02/02/17 05:00 05:20 05:20 WBC 13.8 H Hgb 9.1 L Hct 27.7 L Plt Count 237 INR 1.79 H D Creat Clearance w eGFR 35.02 Assessment Urosepsis syndrome urinary source GNB in the urine possible ESBL Doing better Has nephrostomy left side Plan Continue Meropenem pending final c/s Stop Ampicillin Await c/s Jovany GRAF
[2017-02-02 09:30] LABS: TROPONIN I 9.92 ng/ml (0.00-0.05)
[2017-02-02] MEDS ORDERED: RANITIDINE HCL 150 MG TABLET (FP) PO SCH (10:00)
[2017-02-02] MEDS ORDERED: PT OWN MED DRAWER 7, Y5N ONE ×4 (10:06→14:53)
[2017-02-02] MEDS: amLODIPine BESYLATE 5 MG TABLET (FP) PO SCH (10:19)
[2017-02-02] MEDS: ISOSORBIDE MONONITRATE 30 MG TAB.SR.24H (FP) PO SCH (10:19)
[2017-02-02] MEDS: RANOLAZINE E.R. 500 MG TABLET (FP) PO SCH ×2 (10:19→22:53)
[2017-02-02] MEDS: ASPIRIN COATED 81 MG TABLET.EC PO SCH (10:20)
[2017-02-02] MEDS: APIXABAN 5 MG TABLET PO SCH ×2 (10:21→22:53)
[2017-02-02] MEDS: METOPROLOL TARTRATE 25 MG TABLET (FP) PO SCH ×2 (10:21→22:53)
--- NOTE | 2017-02-02 11:26 | PN ---
Physical Exam: SUBJECTIVE: Patient seen and examined Patient resting in bed. Afebrile, hemodynamically stable. No acute events. On 3L NC. Coughlin output 1250, nephrostomy 200. feels well. deneis chest pain, sob, h /a, abd pain, n/v, diarrhea. 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 OBJECTIVE: Vital Signs Period Temp Pulse Resp BP Sys/Crawford Pulse Ox Last 24 Hr 98.3 F-99.1 F 68-94 18-23 105-152/46-79 92-96 GENERAL: The patient is awake, alert, and fully oriented, in no acute distress. HEAD: Normal with no signs of trauma. EYES: PERRL, extraocular movements intact, sclera anicteric, conjunctiva clear. No ptosis. ENT: moist mucous membranes. NECK: supple, no jvd. LUNGS: Breath sounds equal, clear to auscultation bilaterally, bibasilar crackles HEART: Regular rate and rhythm, S1, S2 ABDOMEN: Soft, nontender, nondistended, normoactive bowel sounds. L nephrostomy tube in place EXTREMITIES: 2+ pulses, warm, well-perfused, no edema. NEUROLOGICAL: Cranial nerves II through XII grossly intact. Normal speech, gait not observed. PSYCH: Normal mood, normal affect. SKIN: Warm, dry Laboratory Results - last 24 hr 02/01/17 02/01/17 02/01/17 05:21 10:00 11:39 WBC RBC Hgb Hct MCV MCHC RDW Plt Count MPV Neutrophils % Lymphocytes % Monocytes % Eosinophils % Basophils % Band Neutrophils Metamyelocytes Differential Comment Platelet Estimate Platelet Comment Anisocytosis Morphology Comment Sodium Potassium Chloride Carbon Dioxide Anion Gap BUN Creatinine Creat Clearance w eGFR POC Glucometer [phone] Random Glucose Lactic Acid 1.604 Calcium Phosphorus Magnesium Total Bilirubin AST ALT Alkaline Phosphatase Troponin I Total Protein Albumin 02/01/17 02/01/17 02/01/17 14:30 14:30 15:00 WBC 19.7 H RBC 3.21 L Hgb 9.0 L Hct 27.9 L MCV 86.9 MCHC 32.2 RDW 20.1 H Plt Count 222 MPV 9.2 Neutrophils % 77.0 Lymphocytes % 6.0 L D Monocytes % 3.0 L Eosinophils % Basophils % Band Neutrophils 13.0 H Metamyelocytes 1 D Differential Comment Manual diff done Platelet Estimate Adequate Platelet Comment Few giant plts Anisocytosis 1+ Morphology Comment Slide scanned Sodium Potassium Chloride Carbon Dioxide Anion Gap BUN Creatinine Creat Clearance w eGFR POC Glucometer Random Glucose Lactic Acid Calcium Phosphorus Magnesium 1.8 D Total Bilirubin AST ALT Alkaline Phosphatase Troponin I 13.60 H* D Total Protein Albumin 02/01/17 02/01/17 02/02/17 17:04 22:18 05:20 WBC 13.8 H RBC 3.22 L Hgb 9.1 L Hct 27.7 L MCV 85.8 MCHC 33.0 RDW 19.8 H Plt Count 237 MPV 9.8 Neutrophils % 82.7 Lymphocytes % 9.2 D Monocytes % 6.6 D Eosinophils % 1.2 D Basophils % 0.3 Band Neutrophils Metamyelocytes Differential Comment Platelet Estimate Platelet Comment Anisocytosis Morphology Comment Sodium Potassium Chloride Carbon Dioxide Anion Gap BUN Creatinine Creat Clearance w eGFR POC Glucometer [phone] Random Glucose Lactic Acid Calcium Phosphorus Magnesium Total Bilirubin AST ALT Alkaline Phosphatase Troponin I Total Protein Albumin 02/02/17 02/02/17 02/02/17 05:20 05:20 05:38 WBC RBC Hgb Hct MCV MCHC RDW Plt Count MPV Neutrophils % Lymphocytes % Monocytes % Eosinophils % Basophils % Band Neutrophils Metamyelocytes Differential Comment Platelet Estimate Platelet Comment Anisocytosis Morphology Comment Sodium 135 L Potassium 3.8 Chloride 103 Carbon Dioxide 22 Anion Gap 10 BUN 41 H Creatinine 1.9 H D Creat Clearance w eGFR 35.02 POC Glucometer [phone] Random Glucose 137 H D Lactic Acid Calcium 8.1 L Phosphorus 2.7 D Magnesium 1.8 Total Bilirubin 0.2 D AST 38 H ALT 17 Alkaline Phosphatase 72 Troponin I 9.92 H* Cancelled Total Protein 5.8 L Albumin 2.3 L 02/02/17 10:24 WBC RBC Hgb Hct MCV MCHC RDW Plt Count MPV Neutrophils % Lymphocytes % Monocytes % Eosinophils % Basophils % Band Neutrophils Metamyelocytes Differential Comment Platelet Estimate Platelet Comment Anisocytosis Morphology Comment Sodium Potassium Chloride Carbon Dioxide Anion Gap BUN Creatinine Creat Clearance w eGFR POC Glucometer [phone] Random Glucose Lactic Acid Calcium Phosphorus Magnesium Total Bilirubin AST ALT Alkaline Phosphatase Troponin I Total Protein Albumin Active Medications Generic Name Dose Route Start Last Admin Trade Name Freq PRN Reason Stop Dose Admin Amlodipine Besylate 2.5 mg 02/01/17 10:00 02/02/17 10:19 Norvasc - PO 2.5 mg DAILY LONNIE Administration Apixaban 5 mg 01/31/17 10:00 02/02/17 10:21 Eliquis - PO 5 mg BID LONNIE Administration Aspirin 81 mg 02/01/17 10:00 02/02/17 10:20 Ecotrin - PO 81 mg DAILY LONNIE Administration Meropenem 1 gm/ Dextrose 100 mls @ 100 mls/hr 01/31/17 17:00 02/01/17 22:12 IVPB 100 mls/hr BID LONNIE Administration Protocol Insulin Aspart 1 vial 02/01/17 07:00 02/02/17 10:21 Novolog Vial Sliding Scale - SQ 2 units ACHS LONNIE Administration Protocol Insulin Detemir 14 units 02/01/17 06:35 02/01/17 22:11 Levemir Vial SQ 14 units HS LONNIE Administration Isosorbide Mononitrate 30 mg 01/31/17 12:45 02/02/17 10:19 Imdur - PO 30 mg DAILY LONNIE Administration Metoprolol Tartrate 25 mg 01/31/17 12:45 02/02/17 10:21 Lopressor - PO 25 mg BID LONNIE Administration Nitroglycerin 0.4 mg 01/31/17 13:26 01/31/17 13:12 Nitrostat - SL 0.4 mg Q5M PRN Administration FOR CHEST PAIN Ondansetron HCl 4 mg 01/31/17 03:36 Zofran Injection IVPB Q6H PRN NAUSEA Ranitidine HCl 150 mg 02/02/17 10:00 02/02/17 10:18 Zantac - PO 150 mg BID LONNIE Administration Ranolazine 500 mg 01/31/17 12:45 02/02/17 10:19 Ranexa - PO 500 mg BID LONNIE Administration ASSESSMENT/PLAN: This is a 71 yo M with PMH of CAD, coronary PCI/stents, CHF, paroxysmal a fib on eliquis, HTN, HLD< DM, Cholelithiasis and Nephrolithiasis, who presented to ED with abd pain, diarrhea, and atypical chest pain lasting for several days Urosepsis -s/p L perc nephrostomy for obstructing stone -UA appreciated -coughlin -Urine culture : ESBL -stop ampicilliln, cont meropenem -IVF hydration -ureteral stent when stable -ID consult -Urology sonsult Demand ischemia -troponin trending down, can stop following -asymptomatic -NTG prn -asa 81 d CAD -compensated -imdur 30 d -lopressor 25 bid HTN -amlodipine 2.5 d LORY -Renal US, CT appreciated: mild/moderate hydronephrosis, obstructive stone -obstructive and cardiorenal component -nephorology consult -Strict I/O -IV hydration A fib -eliquis DM -sliding scale -Levemir 14 HS -BGM FEN NS@75 lytes stable cardiac diet Dispo: x ene to telemetry Problem List - Problems (1) Afib Code(s): I48.91 - UNSPECIFIED ATRIAL FIBRILLATION Qualifiers: Qualified Code(s): I48.0 - Paroxysmal atrial fibrillation (2) CAD (coronary artery disease) Code(s): I25.10 - ATHSCL HEART DISEASE OF [place] CORONARY ARTERY W/O ANG PCTRS Qualifiers: (3) Demand ischemia Code(s): I24.8 - OTHER FORMS OF ACUTE ISCHEMIC HEART DISEASE (4) Hydronephrosis with renal and ureteral calculous obstruction Code(s): N13.2 - HYDRONEPHROSIS WITH RENAL AND URETERAL CALCULOUS OBSTRUCTION (5) Hyperlipidemia Code(s): E78.5 - HYPERLIPIDEMIA, UNSPECIFIED Qualifiers: Qualified Code(s): E78.4 - Other hyperlipidemia (6) UTI (urinary tract infection) Code(s): N39.0 - URINARY TRACT INFECTION, SITE NOT SPECIFIED (7) Atrial fibrillation by electrocardiography Code(s): I48.91 - UNSPECIFIED ATRIAL FIBRILLATION (8) Bladder stones Code(s): N21.0 - CALCULUS IN BLADDER (9) Chest pain Code(s): R07.9 - CHEST PAIN, UNSPECIFIED Qualifiers: Qualified Code(s): R07.9 - Chest pain, unspecified (10) Cholelithiasis without obstruction Code(s): K80.20 - CALCULUS OF GALLBLADDER W/O CHOLECYSTITIS W/O OBSTRUCTION (11) Controlled diabetes mellitus with diabetic nephropathy, with long-term current use of insulin Code(s): E11.21 - TYPE 2 DIABETES MELLITUS WITH DIABETIC NEPHROPATHY Z79.4 - TIRE BUFFER (CURRENT) USE OF INSULIN Qualifiers: Qualified Code(s): E11.21 - Type 2 diabetes mellitus with diabetic nephropathy; Z79.4 - terminal gauger (current) use of insulin (12) 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 Code(s): E11.9 - TYPE 2 DIABETES MELLITUS WITHOUT COMPLICATIONS Qualifiers: Qualified Code(s): E11.9 - Type 2 diabetes mellitus without complications (13) 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 due to underlying condition with hyperglycemia Code(s): E08.65 - DIABETES DUE TO UNDERLYING CONDITION W HYPERGLYCEMIA Qualifiers: Qualified Code(s): E08.65 - 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 due to underlying condition with hyperglycemia (14) Gall stone Code(s): K80.20 - CALCULUS OF GALLBLADDER W/O CHOLECYSTITIS W/O OBSTRUCTION (15) HTN (hypertension) Code(s): I10 - ESSENTIAL (PRIMARY) HYPERTENSION Qualifiers: Qualified Code(s): I10 - Essential (primary) hypertension (16) Kidney stone Code(s): N20.0 - CALCULUS OF KIDNEY (17) Paroxysmal a-fib Code(s): I48.0 - PAROXYSMAL ATRIAL FIBRILLATION (18) S/P coronary artery stent placement Code(s): Z95.5 - PRESENCE OF CORONARY ANGIOPLASTY IMPLANT AND GRAFT (19) Sepsis Code(s): A41.9 - SEPSIS, UNSPECIFIED ORGANISM Qualifiers: Qualified Code(s): A41.9 - Sepsis, unspecified organism (20) Urinary retention Code(s): R33.9 - RETENTION OF URINE, UNSPECIFIED Visit type - Emergency Visit Emergency Visit: Yes ED Registration Date: 01/31/17 Care time: The patient presented to the Emergency Department on the above date and was hospitalized for further evaluation of their emergent condition. - New Patient This patient is new to me today: No - Critical Care Critical Care patient: Yes Total Critical Care Time (in minutes): 49 Critical Care Statement: The care of this patient involved high complexity decision making to prevent further life threatening deterioration of the patient 's condition and/or to evalute & treat vital organ system(s) failure or risk of failure. - Discharge Referral Referred to [facility] No
--- NOTE | 2017-02-02 12:06 | PN ---
Teaching Attending Note Name of Resident: Gem Samson ATTENDING PHYSICIAN STATEMENT I saw and evaluated the patient. I reviewed the resident's note and discussed the case with the resident. I agree with the resident's findings and plan as documented. SUBJECTIVE: Pt seen and examined in the ICU. No further fevers or chills. Nephrostomy draining clear urine. Denies abdominal/flank pain. No chest pain or shortness of breath. OBJECTIVE: Last Vital Signs Temp Pulse Resp BP Pulse Ox 98.3 F 78 23 135/79 92 L 02/02/17 10:00 02/02/17 10:44 02/02/17 10:00 02/02/17 10:00 02/02/17 10:44 Intake & Output 01/30/17 01/31/17 02/01/17 02/02/17 23:59 23:59 23:59 23:59 Intake Total 2000 2750 1300 Output Total 400 1600 1450 Balance 1600 1150 -150 Weight 230 lb 230 lb Gen: NAD at rest Heart: RRR Lung: decreased breath sounds at the bases Abd: soft, nontender, +left nephrostomy with clear urine Ext: no edema CBC, BMP 02/02/17 05:20 02/02/17 05:20 Troponin, BNP 02/01/17 02/02/17 02/02/17 15:00 05:20 05:20 Troponin I 13.60 H* D 9.92 H* Cancelled Active Medications Amlodipine Besylate (Norvasc -) 2.5 mg PO DAILY [facility] Last Admin: 02/02/17 10:19 Dose: 2.5 mg Apixaban (Eliquis -) 5 mg PO BID [facility] Last Admin: 02/02/17 10:21 Dose: 5 mg Aspirin (Ecotrin -) 81 mg PO DAILY [facility] Last Admin: 02/02/17 10:20 Dose: 81 mg Meropenem 1 gm/ Dextrose 100 mls @ 100 mls/hr IVPB BID [facility] PRN Reason: Protocol Last Admin: 02/01/17 22:12 Dose: 100 mls/hr Insulin Aspart (Novolog Vial Sliding Scale -) 1 vial SQ ACHS [facility] PRN Reason: Protocol Last Admin: 02/02/17 10:21 Dose: 2 units Insulin Detemir (Levemir Vial) 14 units SQ HS [facility] Last Admin: 02/01/17 22:11 Dose: 14 units Isosorbide Mononitrate (Imdur -) 30 mg PO DAILY [facility] Last Admin: 02/02/17 10:19 Dose: 30 mg Metoprolol Tartrate (Lopressor -) 25 mg PO BID [facility] Last Admin: 02/02/17 10:21 Dose: 25 mg Nitroglycerin (Nitrostat -) 0.4 mg SL Q5M PRN PRN Reason: FOR CHEST PAIN Last Admin: 01/31/17 13:12 Dose: 0.4 mg Ondansetron HCl (Zofran Injection) 4 mg IVPB Q6H PRN PRN Reason: NAUSEA Ranitidine HCl (Zantac -) 150 mg PO BID [facility] Last Admin: 02/02/17 10:18 Dose: 150 mg Ranolazine (Ranexa -) 500 mg PO BID [facility] Last Admin: 02/02/17 10:19 Dose: 500 mg ASSESSMENT AND PLAN: UTI/Nephrolithiasis/Left Hydronephrosis Sepsis s/p Left Nephrostomy Placement Acute Kidney Injury Acute NSTEMI HTN Atrial Fibrillation DM - continue antibiotics - f/u cultures - trend cardiac enzymes - echocardiogram - ASA, beta lora - rate controlled - continue anticoagulation - PO as tolerated - DVT prophylaxis - can monitor on telemetry
[2017-02-02] MEDS ORDERED: NITROGLYCERIN SUBLINGUAL 1/150 0.4 MG TAB SL PRN (12:13)
[2017-02-02] MEDS ORDERED: ONDANSETRON 4 MG/2 ML VIAL IVPB PRN (12:13)
[2017-02-02] MEDS ORDERED: MEROPENEM 1 MG in DEXTROSE 5%-WATER - 100 ML IVPB ONE (14:33)
--- NOTE | 2017-02-02 15:02 | PN ---
Progress Note, Physician Chief Complaint: Less abdominal pain History of Present Illness: Patient was seem and examined in ICU. Awake and alert. Chart was reviewed Denies chest pain, SOB or palpitations. Troponin noted. Demand ischemia due to sepsis - Current Medication List Current Medications: Active Medications Amlodipine Besylate (Norvasc -) 2.5 mg PO DAILY LONNIE Apixaban (Eliquis -) 5 mg PO BID LONNIE Aspirin (Ecotrin -) 81 mg PO DAILY LONNIE Meropenem 1 gm/ Dextrose 100 mls @ 100 mls/hr IVPB BID LONNIE PRN Reason: Protocol Meropenem 1 mg/ Dextrose 100 mls @ 100 mls/hr IVPB ONCE ONE Stop: 02/02/17 15:32 Last Admin: 02/02/17 14:56 Dose: 100 mls/hr Insulin Aspart (Novolog Vial Sliding Scale -) 1 vial SQ ACHS LONNIE PRN Reason: Protocol Insulin Detemir (Levemir Vial) 14 [facility] SQ [facility] Isosorbide Mononitrate (Imdur -) 30 mg PO DAILY [facility] Metoprolol Tartrate (Lopressor -) 25 mg PO BID [facility] Nitroglycerin (Nitrostat -) 0.4 mg SL Q5M PRN PRN Reason: FOR CHEST PAIN Ondansetron HCl (Zofran Injection) 4 mg IVPB Q6H PRN PRN Reason: NAUSEA Ranitidine HCl (Zantac -) 150 mg PO BID [facility]ONN[facility] Ranolazine (Ranexa -) 500 mg PO BID [facility] - Objective Vital Signs: Vital Signs Temperature 98.3 F 02/02/17 10:00 Pulse Rate 78 02/02/17 10:44 Respiratory Rate 23 02/02/17 10:00 Blood Pressure 135/79 02/02/17 10:00 O2 Sat by Pulse Oximetry (%) 92 L 02/02/17 10:44 Neck: Yes: Supple Cardiovascular: Yes: Regular Rate and Rhythm, Murmur (Soft SM), S1, S2 Respiratory: Yes: Diminished Gastrointestinal: Yes: Normal Bowel Sounds, Soft. No: Tenderness Edema: No Additional Findings/Remarks: Review of Systems Cardiovascular: As noted above Respiratory: denies: denies: Cough or Sputum Production Gastrointestinal: denies: Nausea, Vomiting, Diarrhea, Constipation or Abdominal Discomfort Musculoskeletal: No Symptoms Reported Endocrine: No Symptoms Reported Labs: CBC, BMP 02/02/17 05:20 02/02/17 05:20 Assessment/Plan 1. Abdominal discomfort related to an obstructing left ureteral stone complicated by urosepsis, post percutaneous nephrostomy 2. Chest pain syndrome in a patient with known CAD post multi-vessel PCI stent angina pectoris, with ACS - demand ischemic injury 3. Diastolic LV dysfunction with chronic class I NYHA classification LV failure , compensated 4. Paroxysmal atrial fibrillation previous history of RFA, [id number] score of 5, currently on A/C therapy with NOAC 5. HTN 6. DM 7. Hyperlipidemia 8. History of KATJA 9. Acute on chronic kidney disease 10. Anemia PLAN: 1. Continue Lopressor and Amlodipine 2. Restart Losartan when renal function recovers 3. Continue Ranexa and Imdur 4. Continue Eliquis plus ASA with close monitoring of CBC 5. Antibiotics coverage Further plans are to follow Riley Brandt MD
--- NOTE | 2017-02-02 16:05 | PN ---
Physical Exam: SUBJECTIVE: Patient seen and examined at bedn side in ICU. patient repots feeling like his normal self, and denies, SOB, CP, N/V/D. sitting comfortably and tolerated diet well. Troponin +, Hemodynamicaly stable, afebrile, denies SOB or chest pain/pressure. Coughlin output 1250, nephrostomy 200 light urine color. OBJECTIVE: Vital Signs Period Temp Pulse Resp BP Sys/Crawford Pulse Ox Last 24 Hr 98.3 F-99.1 F 70-94 17-23 106-165/46-79 92-96 GENERAL: The patient is awake, alert, and fully oriented, in no acute distress. supine breathing comfortably. HEAD: Normal with no signs of trauma. EYES: PERRL, extraocular movements intact, sclera anicteric, conjunctiva clear. No ptosis. ENT: moist mucous membranes. NECK: supple, no jvd. LUNGS: decreased breath sounds at the basesclear to auscultation bilaterally, bibasilar crackles HEART: Regular rate and rhythm, S1, S2 ABDOMEN: Soft, nontender, nondistended, normoactive bowel sounds. L nephrostomy tube in place, small amount of blood in Coughlin bag. + left nephrostomy with clear urine EXTREMITIES: 2+ pulses, warm, well-perfused, no edema. NEUROLOGICAL: Cranial nerves II through XII grossly intact. Normal speech, gait not observed. PSYCH: Normal mood, normal affect. SKIN: Warm, dry Laboratory Results - last 24 hr 02/01/17 02/01/17 02/01/17 05:21 11:39 14:30 WBC RBC Hgb Hct MCV MCHC RDW Plt Count MPV Neutrophils % 77.0 Lymphocytes % 6.0 L D Monocytes % 3.0 L Eosinophils % Basophils % Band Neutrophils 13.0 H Metamyelocytes 1 D Differential Comment Manual diff done Platelet Estimate Adequate Platelet Comment Few giant plts Anisocytosis 1+ Morphology Comment Slide scanned Sodium Potassium Chloride Carbon Dioxide Anion Gap BUN Creatinine Creat Clearance w eGFR POC Glucometer [phone] Random Glucose Calcium Phosphorus Magnesium Total Bilirubin AST ALT Alkaline Phosphatase Troponin I Total Protein Albumin 02/01/17 02/01/17 02/02/17 17:04 22:18 05:20 WBC 13.8 H RBC 3.22 L Hgb 9.1 L Hct 27.7 L MCV 85.8 MCHC 33.0 RDW 19.8 H Plt Count 237 MPV 9.8 Neutrophils % 82.7 Lymphocytes % 9.2 D Monocytes % 6.6 D Eosinophils % 1.2 D Basophils % 0.3 Band Neutrophils Metamyelocytes Differential Comment Platelet Estimate Platelet Comment Anisocytosis Morphology Comment Sodium Potassium Chloride Carbon Dioxide Anion Gap BUN Creatinine Creat Clearance w eGFR POC Glucometer [phone] Random Glucose Calcium Phosphorus Magnesium Total Bilirubin AST ALT Alkaline Phosphatase Troponin I Total Protein Albumin 02/02/17 02/02/17 02/02/17 05:20 05:20 05:38 WBC RBC Hgb Hct MCV MCHC RDW Plt Count MPV Neutrophils % Lymphocytes % Monocytes % Eosinophils % Basophils % Band Neutrophils Metamyelocytes Differential Comment Platelet Estimate Platelet Comment Anisocytosis Morphology Comment Sodium 135 L Potassium 3.8 Chloride 103 Carbon Dioxide 22 Anion Gap 10 BUN 41 H Creatinine 1.9 H D Creat Clearance w eGFR 35.02 POC Glucometer [phone] Random Glucose 137 H D Calcium 8.1 L Phosphorus 2.7 D Magnesium 1.8 Total Bilirubin 0.2 D AST 38 H ALT 17 Alkaline Phosphatase 72 Troponin I 9.92 H* Cancelled Total Protein 5.8 L Albumin 2.3 L 02/02/17 10:24 WBC RBC Hgb Hct MCV MCHC RDW Plt Count MPV Neutrophils % Lymphocytes % Monocytes % Eosinophils % Basophils % Band Neutrophils Metamyelocytes Differential Comment Platelet Estimate Platelet Comment Anisocytosis Morphology Comment Sodium Potassium Chloride Carbon Dioxide Anion Gap BUN Creatinine Creat Clearance w eGFR POC Glucometer [phone] Random Glucose Calcium Phosphorus Magnesium Total Bilirubin AST ALT Alkaline Phosphatase Troponin I Total Protein Albumin Active Medications Generic Name Dose Route Start Last Admin Trade Name Jake PRN Reason Stop Dose Admin Amlodipine Besylate 2.5 mg 02/03/17 10:00 Norvasc - PO DAILY LONNIE Apixaban 5 mg 02/02/17 22:00 Eliquis - PO BID LONNIE Aspirin 81 mg 02/03/17 10:00 Ecotrin - PO DAILY LONNIE Meropenem 1 gm/ Dextrose 100 mls @ 100 mls/hr 02/02/17 22:00 IVPB BID LONNIE Protocol Insulin Aspart 1 vial 02/02/17 16:30 02/02/17 16:29 Novolog Vial Sliding Scale - SQ 2 units ACHS LONNIE Administration Protocol Insulin Detemir 14 units 02/02/17 22:00 Levemir Vial SQ HS [facility] Isosorbide Mononitrate 30 mg 02/03/17 10:00 Imdur - PO DAILY [facility] Metoprolol Tartrate 25 mg 02/02/17 22:00 Lopressor - PO BID [facility] Nitroglycerin 0.4 mg 02/02/17 12:13 Nitrostat - SL Q5M PRN FOR CHEST PAIN Ondansetron HCl 4 mg 02/02/17 12:13 Zofran Injection IVPB Q6H PRN NAUSEA Ranitidine HCl 150 mg 02/02/17 22:00 Zantac - PO BID [facility] Ranolazine 500 mg 02/02/17 22:00 Ranexa - PO BID [facility] Microbiology 01/31/17 14:03 Blood - Peripheral Venous Blood Culture - Preliminary NO GROWTH OBTAINED AFTER 48 HOURS, INCUBATION TO CONTINUE FOR 3 DAYS. 01/31/17 14:25 Blood - Peripheral Venous Blood Culture - Preliminary NO GROWTH OBTAINED AFTER 48 HOURS, INCUBATION TO CONTINUE FOR 3 DAYS. 01/31/17 02:20 Urine - Urine Clean Catch Urine Culture - Final Escherichia Coli Esbl Boom Supervisor 01/31/17 19:31 Urine - Urine Nephrostomy Tube Urine Culture - Preliminary Lactose Fermenting Neg Bacilli ASSESSMENT/PLAN: 71M with PMH of CAD, coronary PCI/stents, CHF, paroxysmal a fib on eliquis, HTN , HLD< DM, Cholelithiasis and Nephrolithiasis, who presented to ED with abd pain , diarrhea, and atypical chest pain lasting for several days found to be urosepsis. Urosepsis-s/p L perc nephrostomy for obstructing stone,Cr remains elevated, leukocytes trending down, afebrile. + urine culture -UA appreciated -coughlin -Urine culture : ESBL -f/u cultures -stop ampicilliln, cont meropenem -IVF hydration -ureteral stent when stable -ID on board -Urology on board -keep MAP >65 Demand ischemia- one troponin troponin trending down, -asymptomatic -NTG prn -asa 81 d -trend cardiac enzymes - echocardiogram - ASA, beta lora - rate controlled - continue anticoagulation Acute NSTEMI: CAD post multi-vessel PCI stent angina pectoris, with ACS, demand ischemic injury, Diastolic LV dysfunction with chronic class I NYHA classification LV failure, compensated -compensated -imdur 30 d -lopressor 25 bid Paroxysmal atrial fibrillation previous history of RFA, [id number] score of 5, Eliquis - History of KATJA supplemental oxygen HTN now with marginanl BP d/c Norvasc for now continue Metorpolol LORY -Renal US, CT appreciated: mild/moderate hydronephrosis, obstructive stone -obstructive and cardiorenal component -nephorology consult -Strict I/O -IV hydration A fib -eliquis DM -sliding scale -Levemir 14 HS -BGM FEN NS@75 lytes stable Cardiac diet PO as tolerated DVT prophylaxis on Eliquis Dispo: transfer to telemetry Visit type - Emergency Visit Emergency Visit: Yes ED Registration Date: 01/31/17 Care time: The patient presented to the Emergency Department on the above date and was hospitalized for further evaluation of their emergent condition. - New Patient This patient is new to me today: No - Critical Care Critical Care patient: Yes Total Critical Care Time (in minutes): 47 Critical Care Statement: The care of this patient involved high complexity decision making to prevent further life threatening deterioration of the patient 's condition and/or to evalute & treat vital organ system(s) failure or risk of failure.
--- NOTE | 2017-02-02 17:31 | PN ---
Teaching Attending Note Name of Resident: Lisa Gordon ATTENDING PHYSICIAN STATEMENT I saw and evaluated the patient. I reviewed the resident's note and discussed the case with the resident. I agree with the resident's findings and plan as documented. Patient is comfortable with no acute distress, no fever or chills, no shortness of breath. Feeling better, no further chest pain. Vital Signs Temperature 98.4 F 02/02/17 14:00 Pulse Rate 80 02/02/17 16:00 Respiratory Rate 18 02/02/17 16:00 Blood Pressure 131/70 02/02/17 16:00 O2 Sat by Pulse Oximetry (%) 92 L 02/02/17 10:44 CBCD WBC 13.8 K/mm3 (4.0-10.0) H 02/02/17 05:20 RBC 3.22 M/mm3 (4.00-5.60) L 02/02/17 05:20 Hgb 9.1 GM/dL (11.7-16.9) L 02/02/17 05:20 Hct 27.7 % (35.4-49) L 02/02/17 05:20 MCV 85.8 fl (80-96) 02/02/17 05:20 MCHC 33.0 g/dl (32.0-35.9) 02/02/17 05:20 RDW 19.8 % (11.9-15.9) H 02/02/17 05:20 Plt Count 237 K/MM3 (134-434) 02/02/17 05:20 MPV 9.8 fl (7.5-11.1) 02/02/17 05:20 CMP Sodium 135 mmol/L (136-145) L 02/02/17 05:20 Potassium 3.8 mmol/L (3.5-5.1) 02/02/17 05:20 Chloride 103 mmol/L (98-107) 02/02/17 05:20 Carbon Dioxide 22 mmol/L (21-32) 02/02/17 05:20 Anion Gap 10 (8-16) 02/02/17 05:20 BUN 41 mg/dL (7-18) H 02/02/17 05:20 Creatinine 1.9 mg/dL (0.7-1.3) H D 02/02/17 05:20 Creat Clearance w eGFR 35.02 (>60) 02/02/17 05:20 Random Glucose 137 mg/dL (74-106) H D 02/02/17 05:20 Calcium 8.1 mg/dL (8.5-10.1) L 02/02/17 05:20 Total Bilirubin 0.2 mg/dL (0.2-1.0) D 02/02/17 05:20 AST 38 U/L (15-37) H 02/02/17 05:20 ALT 17 U/L (12-78) 02/02/17 05:20 Alkaline Phosphatase 72 U/L (45-117) 02/02/17 05:20 Total Protein 5.8 g/dl (6.4-8.2) L 02/02/17 05:20 Albumin 2.3 g/dl (3.4-5.0) L 02/02/17 05:20 CARDIAC ENZYMES Creatine Kinase 316 IU/L (39-308) H 02/01/17 00:45 Troponin I 9.92 ng/ml (0.00-0.05) H* 02/02/17 05:20 Current Medications Generic Name Dose Route Start Last Admin Trade Name Freq PRN Reason Stop Dose Admin Amlodipine Besylate 2.5 mg 02/03/17 10:00 Norvasc - PO DAILY [facility] Apixaban 5 mg 02/02/17 22:00 Eliquis - PO BID [facility] Aspirin 81 mg 02/03/17 10:00 Ecotrin - PO DAILY [facility] Meropenem 1 gm/ Dextrose 100 mls @ 100 mls/hr 02/02/17 22:00 IVPB BID [facility] Protocol Insulin Aspart 1 vial 02/02/17 16:30 02/02/17 16:29 Novolog Vial Sliding Scale - SQ 2 units ACHS [facility] Administration Protocol Insulin Detemir 14 units 02/02/17 22:00 Levemir Vial SQ HS [facility] Isosorbide Mononitrate 30 mg 02/03/17 10:00 Imdur - PO DAILY [facility] Metoprolol Tartrate 25 mg 02/02/17 22:00 Lopressor - PO BID [facility] Nitroglycerin 0.4 mg 02/02/17 12:13 Nitrostat - SL Q5M PRN FOR CHEST PAIN Ondansetron HCl 4 mg 02/02/17 12:13 Zofran Injection IVPB Q6H PRN NAUSEA Ranitidine HCl 150 mg 02/02/17 22:00 Zantac - PO BID [facility] Ranolazine 500 mg 02/02/17 22:00 Ranexa - PO BID [facility] Home Medications Medication Instructions Recorded Amlodipine Besylate [Norvasc -] 10 mg PO DAILY 12/20/15 Tamsulosin HCl [Flomax -] 0.4 mg PO DAILY #10 capsule 06/01/16 Gemfibrozil [Lopid] 600 mg PO BID 10/14/16 Losartan Potassium [Cozaar -] 50 mg PO DAILY 10/14/16 Nitroglycerin [Nitrostat] 0.4 mg SL PRN PRN 10/14/16 Insulin (Levemir) [Levemir Vial] 14 units SQ ASDIR #0 10/24/16 Isosorbide Mononitrate [Imdur -] 30 mg PO DAILY tab.sr.24h 11/01/16 Ranolazine [Ranexa -] 500 mg PO BID tab 11/01/16 Apixaban [Eliquis -] 5 mg PO BID #30 tablet 11/20/16 Atorvastatin Ca [Lipitor] 10 mg PO HS #30 tablet 11/20/16 Cetirizine HCl [Zyrtec -] 10 mg PO DAILY #30 tablet 11/20/16 Colesevelam HCl [Welchol (Nf)] 625 mg PO BID #30 tablet 11/20/16 Metoprolol Succinate [Toprol XL -] 50 mg PO BID #60 tab.sr.24h 11/20/16 Ranitidine [Zantac -] 150 mg PO DAILY #20 tablet 11/20/16 Insulin Sliding Scale [Novolog 0 units SQ QID PRN 01/31/17 Vial Sliding Scale -] ROS/PE as per resident ECG - no acute abnormality, no acute ST changes ASSESSMENT/PLAN: 71 year old male that presents to the Emergency Department with abdominal pain and atypical chest pain. # Demand Ischemia injury due severe sepsis improving , troponins are trending down now. # Acute UTI with hx of ESBL on Merepenem s/p Rocephin ID on the case. #S?p sepsis due to acute UTI with ESBL with Mild to moderate Hydronephrosis with perinephric inflammation and ureteral kidney sotne with obstruction s/p percutaneous nephrostomy by IR , Tube draining well , also has coughlin with hematuria. urologist seen the patient # Acute chest pain syndrome s/p SL nitro and Morphine 2mg IV for chest # Acute renal failure due to nephrolithiasis /UTI. Continue IVF, will continue to monitor creatinine function, Nephrology consult Dr. Sparks appreciated #Paroxysmal atrial fibrillation with [id number] score of 5, on Eliquis continue # Moderate enlargement of prostate ;Urologist on the case # Hypertension - controlled now continue Norvasc, Lopressor # Diabetes, Monitor blood glucose with SS # Acute Hyponatremia IVF # Diarrhea resolved DVT ppx : Eliquis
--- NOTE | 2017-02-02 22:52 | EKG ---
Test Reason : Blood Pressure : / mmHG Vent. Rate : 087 BPM Atrial Rate : 087 BPM P-R Int : 156 ms QRS Dur : 092 ms QT Int : 390 ms P-R-T Axes : 041 027 101 degrees QTc Int : 469 ms POOR DATA QUALITY, INTERPRETATION MAY BE ADVERSELY AFFECTED NORMAL SINUS RHYTHM T-WAVE INVERSION IN ANTEROLATERAL LEADS ABNORMAL ECG WHEN COMPARED WITH ECG OF 15-NOV-2016 07:46, NO SIGNIFICANT CHANGE WAS FOUND Confirmed by ALLEN WELCH MD ([id number]) on 02/02/2017 10:52:10 PM Referred By: Confirmed By:ALLEN WELCH MD
[2017-02-02] MEDS: RANITIDINE HCL 150 MG TABLET (FP) PO SCH (22:53)
[2017-02-02] MEDS: INSULIN DETEMIR 100 UNITS/ML MDV SQ SCH (22:54)
[2017-02-02] MEDS: MEROPENEM 1 GM in DEXTROSE 5%-WATER - 100 ML IVPB SCH (23:38)
[2017-02-03] MEDS: INSULIN SLIDING SCALE (NOVOLOG) 1 VIAL SQ SCH ×4 (06:51→22:46)
[2017-02-03] MEDS ORDERED: INSULIN DETEMIR 100 UNITS/ML MDV SQ ONE (06:59)
--- NOTE | 2017-02-03 07:11 | EKG ---
Test Reason : Blood Pressure : / mmHG Vent. Rate : 070 BPM Atrial Rate : 070 BPM P-R Int : 168 ms QRS Dur : 094 ms QT Int : 448 ms P-R-T Axes : 047 016 104 degrees QTc Int : 483 ms NORMAL SINUS RHYTHM T WAVE ABNORMALITY, CONSIDER ANTEROLATERAL ISCHEMIA ABNORMAL ECG WHEN COMPARED WITH ECG OF 31-JAN-2017 21:20, PREMATURE VENTRICULAR COMPLEXES ARE NO LONGER PRESENT Confirmed by REBEKAH GRAF, ALLEN ([id number]) on 02/03/2017 7:11:08 AM Referred By: Confirmed By:ALLEN WELCH MD
--- NOTE | 2017-02-03 07:12 | EKG ---
Test Reason : Blood Pressure : / mmHG Vent. Rate : 094 BPM Atrial Rate : 094 BPM P-R Int : 156 ms QRS Dur : 102 ms QT Int : 356 ms P-R-T Axes : 040 012 097 degrees QTc Int : 445 ms SINUS RHYTHM WITH OCCASIONAL PREMATURE VENTRICULAR COMPLEXES ABNORMAL ECG WHEN COMPARED WITH ECG OF 31-JAN-2017 13:22, NO SIGNIFICANT CHANGE IS FOUND Confirmed by ALLEN WELCH MD ([id number]) on 02/03/2017 7:12:27 AM Referred By: Confirmed By:ALLEN WELCH MD
--- NOTE | 2017-02-03 07:13 | EKG ---
Test Reason : Blood Pressure : / mmHG Vent. Rate : 105 BPM Atrial Rate : 105 BPM P-R Int : 162 ms QRS Dur : 092 ms QT Int : 356 ms P-R-T Axes : 043 018 115 degrees QTc Int : 470 ms SINUS TACHYCARDIA WITH FREQUENT PREMATURE VENTRICULAR COMPLEXES ABNORMAL ECG WHEN COMPARED WITH ECG OF 30-JAN-2017 20:45, PREMATURE VENTRICULAR COMPLEXES ARE NOW PRESENT Confirmed by ALLEN WELCH MD ([id number]) on 02/03/2017 7:13:40 AM Referred By: Confirmed By:ALLEN WELCH MD
--- NOTE | 2017-02-03 08:11 | PN ---
Teaching Attending Note Name of Resident: Lisa Gordon ATTENDING PHYSICIAN STATEMENT I saw and evaluated the patient. I reviewed the resident's note and discussed the case with the resident. I agree with the resident's findings and plan as documented. Patient is feeling better, no acute distress, no fever or chills, no chest pain. Vital Signs Temperature 98.8 F 02/03/17 06:00 Pulse Rate 88 02/03/17 06:00 Respiratory Rate 20 02/03/17 06:00 Blood Pressure 144/91 02/03/17 06:00 O2 Sat by Pulse Oximetry (%) 94 L 02/03/17 06:00 CBCD WBC 7.8 K/mm3 (4.0-10.0) D 02/03/17 08:15 RBC 3.92 M/mm3 (4.00-5.60) L D 02/03/17 08:15 Hgb 11.0 GM/dL (11.7-16.9) L D 02/03/17 08:15 Hct 33.6 % (35.4-49) L D 02/03/17 08:15 MCV 85.8 fl (80-96) 02/03/17 08:15 MCHC 32.8 g/dl (32.0-35.9) 02/03/17 08:15 RDW 19.6 % (11.9-15.9) H 02/03/17 08:15 Plt Count 296 K/MM3 (134-434) D 02/03/17 08:15 MPV 9.3 fl (7.5-11.1) 02/03/17 08:15 CMP Sodium 134 mmol/L (136-145) L 02/03/17 08:15 Potassium 3.5 mmol/L (3.5-5.1) 02/03/17 08:15 Chloride 99 mmol/L (98-107) 02/03/17 08:15 Carbon Dioxide 25 mmol/L (21-32) 02/03/17 08:15 Anion Gap 10 (8-16) 02/03/17 08:15 BUN 29 mg/dL (7-18) H D 02/03/17 08:15 Creatinine 1.6 mg/dL (0.7-1.3) H 02/03/17 08:15 Creat Clearance w eGFR 42.70 (>60) 02/03/17 08:15 Random Glucose 197 mg/dL (74-106) H D 02/03/17 08:15 Calcium 8.6 mg/dL (8.5-10.1) 02/03/17 08:15 Total Bilirubin 0.3 mg/dL (0.2-1.0) D 02/03/17 08:15 AST 32 U/L (15-37) 02/03/17 08:15 ALT 22 U/L (12-78) D 02/03/17 08:15 Alkaline Phosphatase 79 U/L (45-117) 02/03/17 08:15 Total Protein 6.7 g/dl (6.4-8.2) 02/03/17 08:15 Albumin 2.6 g/dl (3.4-5.0) L 02/03/17 08:15 CARDIAC ENZYMES Creatine Kinase 316 IU/L (39-308) H 02/01/17 00:45 Troponin I 5.72 ng/ml (0.00-0.05) H* D 02/03/17 08:15 Current Medications Generic Name Dose Route Start Last Admin Trade Name Freq PRN Reason Stop Dose Admin Amlodipine Besylate 2.5 mg 02/03/17 10:00 02/03/17 09:36 Norvasc - PO 2.5 mg DAILY [facility] Administration Apixaban 5 mg 02/02/17 22:00 02/03/17 09:03 Eliquis - PO Not Given BID [facility] Aspirin 81 mg 02/03/17 10:00 02/03/17 09:02 Ecotrin - PO Not Given DAILY [facility] Ertapenem 1 gm/ Sodium 50 mls @ 50 mls/hr 02/03/17 22:00 Chloride IVPB DAILY [facility] Protocol Insulin Aspart 1 vial 02/02/17 16:30 02/03/17 06:51 Novolog Vial Sliding Scale - SQ Not Given ACHS [facility] Protocol Insulin Detemir 14 units 02/02/17 22:00 02/02/17 22:54 Levemir Vial SQ 14 units HS [facility] Administration Isosorbide Mononitrate 30 mg 02/03/17 10:00 02/03/17 09:36 Imdur - PO 30 mg DAILY [facility] Administration Metoprolol Tartrate 25 mg 02/02/17 22:00 02/03/17 09:36 Lopressor - PO 25 mg BID [facility] Administration Nitroglycerin 0.4 mg 02/02/17 12:13 Nitrostat - SL Q5M PRN FOR CHEST PAIN Ondansetron HCl 4 mg 02/02/17 12:13 Zofran Injection IVPB Q6H PRN NAUSEA Ranitidine HCl 150 mg 02/02/17 22:00 02/03/17 09:36 Zantac - PO 150 mg BID [facility]ONNIE Administration Ranolazine 500 mg 02/02/17 22:00 02/03/17 09:36 Ranexa - PO 500 mg BID [facility]ONNIE Administration Home Medications Medication Instructions Recorded Amlodipine Besylate [Norvasc -] 10 mg PO DAILY 12/20/15 Tamsulosin HCl [Flomax -] 0.4 mg PO DAILY #10 capsule 06/01/16 Gemfibrozil [Lopid] 600 mg PO BID 10/14/16 Losartan Potassium [Cozaar -] 50 mg PO DAILY 10/14/16 Nitroglycerin [Nitrostat] 0.4 mg SL PRN PRN 10/14/16 Insulin (Levemir) [Levemir Vial] 14 units SQ ASDIR #0 10/24/16 Isosorbide Mononitrate [Imdur -] 30 mg PO DAILY tab.sr.24h 11/01/16 Ranolazine [Ranexa -] 500 mg PO BID tab 11/01/16 Apixaban [Eliquis -] 5 mg PO BID #30 tablet 11/20/16 Atorvastatin Ca [Lipitor] 10 mg PO HS #30 tablet 11/20/16 Cetirizine HCl [Zyrtec -] 10 mg PO DAILY #30 tablet 11/20/16 Colesevelam HCl [Welchol (Nf)] 625 mg PO BID #30 tablet 11/20/16 Metoprolol Succinate [Toprol XL -] 50 mg PO BID #60 tab.sr.24h 11/20/16 Ranitidine [Zantac -] 150 mg PO DAILY #20 tablet 11/20/16 Insulin Sliding Scale [Novolog 0 units SQ QID PRN 01/31/17 Vial Sliding Scale -] ROS/PE as per resident's note ECG - no acute abnormality, no acute ST changes ASSESSMENT/PLAN: 71 year old male that presents to the Emergency Department with abdominal pain and atypical chest pain. #POD 2 for left Percutaneous nephrostomy by IR S/p sepsis due to acute UTI with ESBL with Mild to moderate Hydronephrosis with perinephric inflammation and ureteral kidney sotne with obstruction s/p percutaneous nephrostomy by IR , Tube draining well , also has coughlin with hematuria. urologist on the case # Acute UTI with hx of ESBL on Merepenem continues, patient is doing well, ID is on the case ,s/p Rocephin # s/p chest pain syndrome s/p SL nitro and Morphine 2mg IV for chest # Demand Ischemia injury due severe sepsis improving , troponins are trending down now. # Acute renal failure improving due to nephrolithiasis /UTI. Continue IVF, will continue to monitor creatinine function, Nephrology consult Dr. Sparks appreciated #Paroxysmal atrial fibrillation with [id number] score of 5, Hold Eliquis and but not ASA as per since ureteral stents will be placed on . # Moderate enlargement of prostate ;Urologist on the case # Hypertension - controlled now continue Norvasc, Lopressor # Diabetes, Monitor blood glucose with SS and continue Levemir # Acute Hyponatremia IVF # Diarrhea resolved DVT ppx :hold Eliquis as per Dr. Nix for urotrostent placement since his Cr. is 1.6 Does not want to hold ASpirin Going to OR for left uroterostent placement on positive for Coughlin pink tinged As per : ureteroscopy/laser litho when infection cleared and medically stable
[2017-02-03 08:47] LABS: MCH 28.1 pg (25.7-33.7); MCHC 32.8 g/dl (32.0-35.9); MEAN CELL VOLUME 85.8 fl (80-96); MEAN PLT VOLUME 9.3 fl (7.5-11.1); PLATELET COUNT 296 K/MM3 (134-434); RDW 19.6 % (11.9-15.9); WHITE BLOOD COUNT 7.8 K/mm3 (4.0-10.0)
--- NOTE | 2017-02-03 08:47 | PN ---
Progress Note (short form) - Note Progress Note: afebrile no flank pain urine from NT and coughlin pink tinged abd-soft abx as per ID will need ureteroscopy/laser litho when infection cleared and medically stable
[2017-02-03] MEDS: APIXABAN 5 MG TABLET PO SCH (09:03)
[2017-02-03 09:06] LABS: ALBUMIN 2.6 g/dl (3.4-5.0); BILIRUBIN,TOTAL 0.3 mg/dL (0.2-1.0); CALCIUM 8.6 mg/dL (8.5-10.1); CREATININE 1.6 mg/dL (0.7-1.3); TOT PROT 6.7 g/dl (6.4-8.2)
[2017-02-03 09:24] LABS: TROPONIN I 5.72 ng/ml (0.00-0.05)
[2017-02-03] MEDS: RANOLAZINE E.R. 500 MG TABLET (FP) PO SCH ×2 (09:36→22:47)
[2017-02-03] MEDS: RANITIDINE HCL 150 MG TABLET (FP) PO SCH ×2 (09:36→22:47)
[2017-02-03] MEDS: amLODIPine BESYLATE 2.5 MG TABLET (FP) PO SCH (09:36)
[2017-02-03] MEDS: METOPROLOL TARTRATE 25 MG TABLET (FP) PO SCH ×2 (09:36→22:47)
[2017-02-03] MEDS: MEROPENEM 1 GM in DEXTROSE 5%-WATER - 100 ML IVPB SCH (09:36)
[2017-02-03] MEDS: ISOSORBIDE MONONITRATE 30 MG TAB.SR.24H (FP) PO SCH (09:36)
[2017-02-03] MEDS ORDERED: PT OWN MED DRAWER 7, Y5N ONE (09:48)
[2017-02-03] MEDS ORDERED: ASPIRIN COATED 81 MG TABLET.EC PO SCH (10:00)
--- NOTE | 2017-02-03 11:53 | PN ---
Progress Note (short form) - Note Progress Note: Renal Follow up for LORY on CKD Pt seen and examined at the bedside sleeping but arouseable no acute complains good urine output via coughlin and nephrostomy tubes no fevers Vital Signs Temperature 98.8 F 02/03/17 06:00 Pulse Rate 88 02/03/17 06:00 Respiratory Rate 20 02/03/17 06:00 Blood Pressure 144/91 02/03/17 06:00 O2 Sat by Pulse Oximetry (%) 94 L 02/03/17 06:00 Intake & Output 01/31/17 02/01/17 02/02/17 02/03/17 23:59 23:59 23:59 23:59 Intake Total 1999 2750 1550 150 Output Total 400 1600 3450 1550 Balance 1600 1150 -1900 -1400 Weight 230 lb Gen: NAD CVS: RRR, No M/R Lungs: CTA, no rales Abd: Soft NT/ND Ext: No edema, clubbing or cyanosis : Left sided nephrostomy tube in place CBC, BMP 02/03/17 08:15 02/03/17 08:15 Current Medications Amlodipine Besylate (Norvasc -) 2.5 mg PO DAILY [facility] Last Admin: 02/03/17 09:36 Dose: 2.5 mg Apixaban (Eliquis -) 5 mg PO BID [facility] Last Admin: 02/03/17 09:03 Dose: Not Given Aspirin (Ecotrin -) 81 mg PO DAILY [facility] Last Admin: 02/03/17 09:02 Dose: Not Given Meropenem 1 gm/ Dextrose 100 mls @ 100 mls/hr IVPB BID [facility] PRN Reason: Protocol Last Admin: 02/03/17 09:36 Dose: 100 mls/hr Insulin Aspart (Novolog Vial Sliding Scale -) 1 vial SQ ACHS [facility] PRN Reason: Protocol Last Admin: 02/03/17 06:51 Dose: Not Given Insulin Detemir (Levemir Vial) 14 units SQ HS [facility] Last Admin: 02/02/17 22:54 Dose: 14 units Isosorbide Mononitrate (Imdur -) 30 mg PO DAILY [facility] Last Admin: 02/03/17 09:36 Dose: 30 mg Metoprolol Tartrate (Lopressor -) 25 mg PO BID [facility] Last Admin: 02/03/17 09:36 Dose: 25 mg Nitroglycerin (Nitrostat -) 0.4 mg SL Q5M PRN PRN Reason: FOR CHEST PAIN Ondansetron HCl (Zofran Injection) 4 mg IVPB Q6H PRN PRN Reason: NAUSEA Ranitidine HCl (Zantac -) 150 mg PO BID [facility] Last Admin: 02/03/17 09:36 Dose: 150 mg Ranolazine (Ranexa -) 500 mg PO BID [facility] Last Admin: 02/03/17 09:36 Dose: 500 mg A/P This is a 71 year old Gentleman with PMhx of CKD stage 3 (B/L Cr 1.4-1.6), DM, CAD, Hx of Nephrolithiasis presented with Acute Abd pain and found to have left sided hydronephrosis with urethral stone #LORY secondary to obstruction Cr imporved to 1.6 s/p Nephrostomy Nephrostomy with good output off IVF and tolerating diet Trend BUN/Cr Avoid NSAIDS/ACEi or ARB for now Urology follow up for further intervention #Complicated Urinary Tract Infection/E. coli On Meropeneum ID following #Hyponatremia from mild fluid overload continue to trend for now #Anemia Trend CBC #Elevated Troponins/Demand Ischemia Cardiology following #Hypertension continue amlodipine and metoprolol Thank you Armando Sparks DO
--- NOTE | 2017-02-03 12:13 | PN ---
Progress Note (short form) - Note Progress Note: alert doing well no abdominal pain no vomiting no diarrhea no fever Vital Signs Period Temp Pulse Resp BP Sys/Crawford Pulse Ox Last 24 Hr 98.1 F-98.8 F 77-88 16-20 115-145/67-91 94 ccor-rrr lungs clear abd soft, +PCN ext no edema CBC, BMP 02/03/17 08:15 02/03/17 08:15 Microbiology 01/31/17 19:31 Urine - Urine Nephrostomy Tube Urine Culture - Final Escherichia Coli [facility]bl Health Director 01/31/17 14:03 Blood - Peripheral Venous Blood Culture - Preliminary NO GROWTH OBTAINED AFTER 48 HOURS, INCUBATION TO CONTINUE FOR 3 DAYS. 01/31/17 14:25 Blood - Peripheral Venous Blood Culture - Preliminary NO GROWTH OBTAINED AFTER 48 HOURS, INCUBATION TO CONTINUE FOR 3 DAYS. 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
--- NOTE | 2017-02-03 12:40 | PN ---
Physical Exam: SUBJECTIVE: Patient seen and examined Patient resting in bed. Afebrile, hemodynamically stable. No acute events. On 3L NC. feels well. states hi abdomen is sore. developed hematuria yesterday. deneis chest pain, sob, h/a, abd pain, n/v, diarrhea. OBJECTIVE: Vital Signs Period Temp Pulse Resp BP Sys/Crawford Pulse Ox Last 24 Hr 98.1 F-98.8 F 77-88 16-20 115-145/67-91 94 GENERAL: The patient is awake, alert, and fully oriented, in no acute distress. HEAD: Normal with no signs of trauma. EYES: PERRL, extraocular movements intact, sclera anicteric, conjunctiva clear. No ptosis. ENT: moist mucous membranes. NECK: supple, no jvd. LUNGS: Breath sounds equal, clear to auscultation bilaterally, bibasilar crackles HEART: Regular rate and rhythm, S1, S2 ABDOMEN: Soft, mildly tender rlq, nondistended, normoactive bowel sounds. L nephrostomy tube in place EXTREMITIES: 2+ pulses, warm, well-perfused, no edema. NEUROLOGICAL: Cranial nerves II through XII grossly intact. Normal speech, gait not observed. PSYCH: Normal mood, normal affect. SKIN: Warm, dry Laboratory Results - last 24 hr 02/02/17 02/02/17 02/03/17 16:08 22:35 05:44 WBC RBC Hgb Hct MCV MCHC RDW Plt Count MPV Sodium Potassium Chloride Carbon Dioxide Anion Gap BUN Creatinine Creat Clearance w eGFR POC Glucometer 232.15146 332 167 Random Glucose Calcium Total Bilirubin AST ALT Alkaline Phosphatase Troponin I Total Protein Albumin 02/03/17 02/03/17 08:15 08:15 WBC 7.8 D RBC 3.92 L D Hgb 11.0 L D Hct 33.6 L D MCV 85.8 MCHC 32.8 RDW 19.6 H Plt Count 296 D MPV 9.3 Sodium 134 L Potassium 3.5 Chloride 99 Carbon Dioxide 25 Anion Gap 10 BUN 29 H D Creatinine 1.6 H Creat Clearance w eGFR 42.70 POC Glucometer Random Glucose 197 H D Calcium 8.6 Total Bilirubin 0.3 D AST 32 ALT 22 D Alkaline Phosphatase 79 Troponin I 5.72 H* D Total Protein 6.7 Albumin 2.6 L Active Medications Generic Name Dose Route Start Last Admin Trade Name Freq PRN Reason Stop Dose Admin Amlodipine Besylate 2.5 mg 02/03/17 10:00 02/03/17 09:36 Norvasc - PO 2.5 mg DAILY LONNIE Administration Apixaban 5 mg 02/02/17 22:00 02/03/17 09:03 Eliquis - PO Not Given BID LONNIE Aspirin 81 mg 02/03/17 10:00 02/03/17 09:02 Ecotrin - PO Not Given DAILY [facility] Ertapenem 1 gm/ Sodium 50 mls @ 50 mls/hr 02/03/17 22:00 Chloride IVPB DAILY [facility] Protocol Insulin Aspart 1 vial 02/02/17 16:30 02/03/17 06:51 Novolog Vial Sliding Scale - SQ Not Given ACHS [facility] Protocol Insulin Detemir 14 units 02/02/17 22:00 02/02/17 22:54 Levemir Vial SQ 14 units HS LONNIE Administration Isosorbide Mononitrate 30 mg 02/03/17 10:00 02/03/17 09:36 Imdur - PO 30 mg DAILY LONNIE Administration Metoprolol Tartrate 25 mg 02/02/17 22:00 02/03/17 09:36 Lopressor - PO 25 mg BID LONNIE Administration Nitroglycerin 0.4 mg 02/02/17 12:13 Nitrostat - SL Q5M PRN FOR CHEST PAIN Ondansetron HCl 4 mg 02/02/17 12:13 Zofran Injection IVPB Q6H PRN NAUSEA Ranitidine HCl 150 mg 02/02/17 22:00 02/03/17 09:36 Zantac - PO 150 mg BID LONNIE Administration Ranolazine 500 mg 02/02/17 22:00 02/03/17 09:36 Ranexa - PO 500 mg BID LONNIE Administration ASSESSMENT/PLAN: This is a 71 yo M with PMH of CAD, coronary PCI/stents, CHF, paroxysmal a fib on eliquis, HTN, HLD< DM, Cholelithiasis and Nephrolithiasis, who presented to ED with abd pain, diarrhea, and atypical chest pain lasting for several days Urosepsis -s/p L perc nephrostomy for obstructing stone -UA appreciated -coughlin -Urine culture : ESBL -meropenem -IVF hydration -developed hematuria -h/h stable -hold eliquis, asa -ureteral stent to be placed -ID consult -Urology consult Demand ischemia -troponin trending down, can stop following -asymptomatic -NTG prn -hold asa 81 d until stent placed CAD -compensated -imdur 30 d -lopressor 25 bid HTN -amlodipine 2.5 d LORY -Renal US, CT appreciated: mild/moderate hydronephrosis, obstructive stone -obstructive and cardiorenal component -nephrology consult -Strict I/O -creat trending down (1.6) A fib -hold eliquis for stent DM -sliding scale -Levemir 14 HS -BGM FEN No IVF lytes stable cardiac diet Dispo: 4s Problem List - Problems (1) Afib Code(s): I48.91 - UNSPECIFIED ATRIAL FIBRILLATION Qualifiers: Qualified Code(s): I48.0 - Paroxysmal atrial fibrillation (2) CAD (coronary artery disease) Code(s): I25.10 - ATHSCL HEART DISEASE OF [place] CORONARY ARTERY W/O ANG PCTRS Qualifiers: (3) Demand ischemia Code(s): I24.8 - OTHER FORMS OF ACUTE ISCHEMIC HEART DISEASE (4) Hydronephrosis with renal and ureteral calculous obstruction Code(s): N13.2 - HYDRONEPHROSIS WITH RENAL AND URETERAL CALCULOUS OBSTRUCTION (5) Hyperlipidemia Code(s): E78.5 - HYPERLIPIDEMIA, UNSPECIFIED Qualifiers: Qualified Code(s): E78.4 - Other hyperlipidemia (6) UTI (urinary tract infection) Code(s): N39.0 - URINARY TRACT INFECTION, SITE NOT SPECIFIED (7) Atrial fibrillation by electrocardiography Code(s): I48.91 - UNSPECIFIED ATRIAL FIBRILLATION (8) Bladder stones Code(s): N21.0 - CALCULUS IN BLADDER (9) Chest pain Code(s): R07.9 - CHEST PAIN, UNSPECIFIED Qualifiers: Qualified Code(s): R07.9 - Chest pain, unspecified (10) Cholelithiasis without obstruction Code(s): K80.20 - CALCULUS OF GALLBLADDER W/O CHOLECYSTITIS W/O OBSTRUCTION (11) Controlled diabetes mellitus with diabetic nephropathy, with long-term current use of insulin Code(s): E11.21 - TYPE 2 DIABETES MELLITUS WITH DIABETIC NEPHROPATHY Z79.4 - HALF-WAY (CURRENT) USE OF INSULIN Qualifiers: Qualified Code(s): E11.21 - Type 2 diabetes mellitus with diabetic nephropathy; Z79.4 - superintendent terminal (current) use of insulin (12) 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 Code(s): E11.9 - TYPE 2 DIABETES MELLITUS WITHOUT COMPLICATIONS Qualifiers: Qualified Code(s): E11.9 - Type 2 diabetes mellitus without complications (13) 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 due to underlying condition with hyperglycemia Code(s): E08.65 - DIABETES DUE TO UNDERLYING CONDITION W HYPERGLYCEMIA Qualifiers: Qualified Code(s): E08.65 - 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 due to underlying condition with hyperglycemia (14) Gall stone Code(s): K80.20 - CALCULUS OF GALLBLADDER W/O CHOLECYSTITIS W/O OBSTRUCTION (15) HTN (hypertension) Code(s): I10 - ESSENTIAL (PRIMARY) HYPERTENSION Qualifiers: Qualified Code(s): I10 - Essential (primary) hypertension (16) Kidney stone Code(s): N20.0 - CALCULUS OF KIDNEY (17) Paroxysmal a-fib Code(s): I48.0 - PAROXYSMAL ATRIAL FIBRILLATION (18) S/P coronary artery stent placement Code(s): Z95.5 - PRESENCE OF CORONARY ANGIOPLASTY IMPLANT AND GRAFT (19) Sepsis Code(s): A41.9 - SEPSIS, UNSPECIFIED ORGANISM Qualifiers: Qualified Code(s): A41.9 - Sepsis, unspecified organism (20) Urinary retention Code(s): R33.9 - RETENTION OF URINE, UNSPECIFIED Visit type - Emergency Visit Emergency Visit: Yes ED Registration Date: 01/31/17 Care time: The patient presented to the Emergency Department on the above date and was hospitalized for further evaluation of their emergent condition. - New Patient This patient is new to me today: No - Critical Care Critical Care patient: No - Discharge Referral Referred to [facility] No
--- NOTE | 2017-02-03 14:52 | PN ---
Progress Note (short form) - Note Progress Note: Feels overall better. No CP, SOB, or abdominal pain. Intake & Output 01/31/17 02/01/17 02/02/17 02/03/17 23:59 23:59 23:59 23:59 Intake Total 1999 2750 1550 150 Output Total 400 1600 3450 1550 Balance 1600 1150 -1900 -1400 Weight 230 lb Last Vital Signs Temp Pulse Resp BP Pulse Ox 98.8 F 88 20 144/91 94 L 02/03/17 06:00 02/03/17 06:00 02/03/17 06:00 02/03/17 06:00 02/03/17 06:00 Active Medications Amlodipine Besylate (Norvasc -) 2.5 mg PO DAILY [facility] Last Admin: 02/03/17 09:36 Dose: 2.5 mg Apixaban (Eliquis -) 5 mg PO BID [facility] Last Admin: 02/03/17 09:03 Dose: Not Given Aspirin (Ecotrin -) 81 mg PO DAILY [facility] Last Admin: 02/03/17 09:02 Dose: Not Given Ertapenem 1 gm/ Sodium (Chloride) 50 mls @ 50 mls/hr IVPB DAILY [facility] PRN Reason: Protocol Insulin Aspart (Novolog Vial Sliding Scale -) 1 vial SQ ACHS [facility] PRN Reason: Protocol Last Admin: 02/03/17 06:51 Dose: Not Given Insulin Detemir (Levemir Vial) 14 units SQ HS [facility] Last Admin: 02/02/17 22:54 Dose: 14 units Isosorbide Mononitrate (Imdur -) 30 mg PO DAILY [facility] Last Admin: 02/03/17 09:36 Dose: 30 mg Metoprolol Tartrate (Lopressor -) 25 mg PO BID [facility] Last Admin: 02/03/17 09:36 Dose: 25 mg Nitroglycerin (Nitrostat -) 0.4 mg SL Q5M PRN PRN Reason: FOR CHEST PAIN Ondansetron HCl (Zofran Injection) 4 mg IVPB Q6H PRN PRN Reason: NAUSEA Ranitidine HCl (Zantac -) 150 mg PO BID [facility] Last Admin: 02/03/17 09:36 Dose: 150 mg Ranolazine (Ranexa -) 500 mg PO BID [facility] Last Admin: 04/04/17 09:36 Dose: 500 mg Constitutional: Yes: Awake and alert, NAD Eyes: Yes: Conjunctiva Clear HENT: Yes: WNL, Atraumatic, Normocephalic Neck: Yes: Supple Cardiovascular: Yes: Regular Rate and Rhythm Respiratory: Yes: CTA Bilaterally, On Nasal O2 Gastrointestinal: Yes: Normal Bowel Sounds, Soft, Other (non tender) Renal/: Yes: [place] Present (Lt nephrostomy tube site) Extremities: Yes: WNL (warm) Edema: No Peripheral Pulses WNL: Yes Neurological: Yes: Alert, Non-focal ...Motor Strength: WNL Psychiatric: Yes: Alert, Oriented Labs: Laboratory Results - last 24 hr 02/02/17 02/02/17 02/03/17 16:08 22:35 05:44 WBC RBC Hgb Hct MCV MCHC RDW Plt Count MPV Sodium Potassium Chloride Carbon Dioxide Anion Gap BUN Creatinine Creat Clearance w eGFR POC Glucometer 232.43183 332 167 Random Glucose Calcium Total Bilirubin AST ALT Alkaline Phosphatase Troponin I Total Protein Albumin 02/03/17 02/03/17 08:15 08:15 WBC 7.8 D RBC 3.92 L D Hgb 11.0 L D Hct 33.6 L D MCV 85.8 MCHC 32.8 RDW 19.6 H Plt Count 296 D MPV 9.3 Sodium 134 L Potassium 3.5 Chloride 99 Carbon Dioxide 25 Anion Gap 10 BUN 29 H D Creatinine 1.6 H Creat Clearance w eGFR 42.70 POC Glucometer Random Glucose 197 H D Calcium 8.6 Total Bilirubin 0.3 D AST 32 ALT 22 D Alkaline Phosphatase 79 Troponin I 5.72 H* D Total Protein 6.7 Albumin 2.6 L Problem List - Problems (1) Abdominal pain in male Code(s): R10.9 - UNSPECIFIED ABDOMINAL PAIN (2) Demand ischemia Code(s): I24.8 - OTHER FORMS OF ACUTE ISCHEMIC HEART DISEASE (3) Hydronephrosis with renal and ureteral calculous obstruction Code(s): N13.2 - HYDRONEPHROSIS WITH RENAL AND URETERAL CALCULOUS OBSTRUCTION Assessment/Plan ABX per ID O2 as needed PO as tolerated Glycemic control For OR Dr Frankel
--- NOTE | 2017-02-03 17:47 | PN ---
Progress Note, Physician Chief Complaint: Tolerating therapy Less abdominal pain History of Present Illness: Patient was seem and examined. Awake and alert. Chart was reviewed Denies chest pain, SOB or palpitations. Troponin trending down - Current Medication List Current Medications: Active Medications Amlodipine Besylate (Norvasc -) 2.5 mg PO DAILY [facility] Last Admin: 02/03/17 09:36 Dose: 2.5 mg Aspirin (Ecotrin -) 81 mg PO DAILY [facility] Ertapenem 1 gm/ Sodium (Chloride) 50 mls @ 50 mls/hr IVPB DAILY [facility] PRN Reason: Protocol Insulin Aspart (Novolog Vial Sliding Scale -) 1 vial SQ ACHS [facility] PRN Reason: Protocol Last Admin: 02/03/17 06:51 Dose: Not Given Insulin Detemir (Levemir Vial) 14 units SQ HS [facility] Last Admin: 02/02/17 22:54 Dose: 14 units Isosorbide Mononitrate (Imdur -) 30 mg PO DAILY [facility] Last Admin: 02/03/17 09:36 Dose: 30 mg Metoprolol Tartrate (Lopressor -) 25 mg PO BID [facility] Last Admin: 02/03/17 09:36 Dose: 25 mg Nitroglycerin (Nitrostat -) 0.4 mg SL Q5M PRN PRN Reason: FOR CHEST PAIN Ondansetron HCl (Zofran Injection) 4 mg IVPB Q6H PRN PRN Reason: NAUSEA Ranitidine HCl (Zantac -) 150 mg PO BID [facility] Last Admin: 02/03/17 09:36 Dose: 150 mg Ranolazine (Ranexa -) 500 mg PO BID [facility] Last Admin: 02/03/17 09:36 Dose: 500 mg - Objective Vital Signs: Vital Signs Temperature 97.9 F 02/03/17 15:00 Pulse Rate 82 02/03/17 15:00 Respiratory Rate 18 02/03/17 15:00 Blood Pressure 113/66 02/03/17 15:00 O2 Sat by Pulse Oximetry (%) 94 L 02/03/17 06:00 Neck: Yes: Supple Cardiovascular: Yes: Regular Rate and Rhythm, Murmur (Soft SM), S1, S2 Respiratory: Yes: CTA Bilaterally Gastrointestinal: Yes: Soft, Other (Nephrostomy tube). No: Distention, Tenderness Edema: No Additional Findings/Remarks: Review of Systems Cardiovascular: As noted above Respiratory: denies: denies: Cough or Sputum Production Gastrointestinal: denies: Nausea, Vomiting, Diarrhea, Constipation (+) Abdominal Discomfort Musculoskeletal: No Symptoms Reported Endocrine: No Symptoms Reported Labs: CBC, BMP 02/03/17 08:15 02/03/17 08:15 INR, PTT INR 1.79 (0.82-1.09) H D 02/01/17 05:00 Assessment/Plan 1. Abdominal discomfort related to an obstructing left ureteral stone complicated by urosepsis, post percutaneous nephrostomy 2. Chest pain syndrome in a patient with known CAD post multi-vessel PCI stent angina pectoris, with ACS - demand ischemic injury 3. Diastolic LV dysfunction with chronic class I NYHA classification LV failure , compensated 4. Paroxysmal atrial fibrillation previous history of RFA, [id number] score of 5, currently on A/C therapy with NOAC 5. HTN 6. DM 7. Hyperlipidemia 8. History of KATJA 9. Acute on chronic kidney disease 10. Anemia PLAN: 1. Continue Lopressor and Amlodipine 2. Restart Losartan when renal function recovers 3. Continue Ranexa and Imdur 4. Continue Eliquis plus ASA with close monitoring of CBC - unless patient has to go back to OR in which case Eliquis can be stopped 24 to 48 hours before ( already stopped) 5. Antibiotics coverage 6. intervention/surgery to follow Further plans are to follow Riley Brandt MD
[2017-02-03] MEDS ORDERED: INSULIN (NOVOLOG) ASPART 100 UNITS/ML 10ML VIAL ONE (22:23)
[2017-02-03] MEDS: INSULIN DETEMIR 100 UNITS/ML MDV SQ SCH (22:46)
[2017-02-03] MEDS: ERTAPENEM SODIUM 1 GM in SODIUM CHLORIDE 50 ML IVPB SCH (22:46)
[2017-02-04 06:49] LABS: MCH 28.4 pg (25.7-33.7); MCHC 33.2 g/dl (32.0-35.9); MEAN CELL VOLUME 85.4 fl (80-96); MEAN PLT VOLUME 9.3 fl (7.5-11.1); PLATELET COUNT 284 K/MM3 (134-434); RDW 19.9 % (11.9-15.9); WHITE BLOOD COUNT 6.9 K/mm3 (4.0-10.0)
[2017-02-04] MEDS: INSULIN SLIDING SCALE (NOVOLOG) 1 VIAL SQ SCH ×4 (06:54→21:40)
[2017-02-04] MEDS ORDERED: INSULIN (NOVOLOG) ASPART 100 UNITS/ML 10ML VIAL ONE ×4 (07:01→21:36)
[2017-02-04] MEDS ORDERED: INSULIN DETEMIR 100 UNITS/ML MDV SQ ONE (07:01)
[2017-02-04 07:05] LABS: CALCIUM 8.8 mg/dL (8.5-10.1); CREATININE 1.4 mg/dL (0.7-1.3); MAGNESIUM 1.5 mg/dL (1.8-2.4); PHOSPHOROUS 3.4 mg/dL (2.5-4.9)
[2017-02-04] MEDS ORDERED: MAGNESIUM SULF 50% (8.12 MEQ/2 ML-1 GM VIAL) IVPB ONE (08:30)
[2017-02-04] MEDS ORDERED: PT OWN MED DRAWER 7, Y5N ONE (08:52)
[2017-02-04] MEDS: METOPROLOL TARTRATE 25 MG TABLET (FP) PO SCH ×2 (08:59→21:40)
[2017-02-04] MEDS: RANOLAZINE E.R. 500 MG TABLET (FP) PO SCH ×2 (09:00→21:40)
[2017-02-04] MEDS: amLODIPine BESYLATE 2.5 MG TABLET (FP) PO SCH (09:00)
[2017-02-04] MEDS: RANITIDINE HCL 150 MG TABLET (FP) PO SCH ×2 (09:00→21:40)
[2017-02-04] MEDS: ISOSORBIDE MONONITRATE 30 MG TAB.SR.24H (FP) PO SCH (09:00)
--- NOTE | 2017-02-04 09:18 | PN ---
Progress Note, Physician Chief Complaint: Tolerating therapy Not in distress History of Present Illness: Patient was seem and examined. Awake and alert. Chart was reviewed Denies chest pain, SOB or palpitations. Troponin trending down Not in distress - Current Medication List Current Medications: Active Medications Amlodipine Besylate (Norvasc -) 2.5 mg PO DAILY [facility] Last Admin: 02/04/17 09:00 Dose: 2.5 mg Aspirin (Ecotrin -) 81 mg PO DAILY [facility] Ertapenem 1 gm/ Sodium (Chloride) 50 mls @ 50 mls/hr IVPB DAILY [facility] PRN Reason: Protocol Last Admin: 02/03/17 22:46 Dose: 50 mls/hr Insulin Aspart (Novolog Vial Sliding Scale -) 1 vial SQ ACHS [facility] PRN Reason: Protocol Last Admin: 02/04/17 06:54 Dose: Not Given Insulin Detemir (Levemir Vial) 14 units SQ HS [facility] Last Admin: 02/03/17 22:46 Dose: 14 units Isosorbide Mononitrate (Imdur -) 30 mg PO DAILY [facility] Last Admin: 02/04/17 09:00 Dose: 30 mg Metoprolol Tartrate (Lopressor -) 25 mg PO BID [facility] Last Admin: 02/04/17 08:59 Dose: 25 mg Nitroglycerin (Nitrostat -) 0.4 mg SL Q5M PRN PRN Reason: FOR CHEST PAIN Ondansetron HCl (Zofran Injection) 4 mg IVPB Q6H PRN PRN Reason: NAUSEA Ranitidine HCl (Zantac -) 150 mg PO BID [facility] Last Admin: 02/04/17 09:00 Dose: 150 mg Ranolazine (Ranexa -) 500 mg PO BID [facility] Last Admin: 02/04/17 09:00 Dose: 500 mg - Objective Vital Signs: Vital Signs Temperature 98.4 F 02/04/17 08:55 Pulse Rate 82 02/04/17 08:55 Respiratory Rate 22 02/04/17 08:55 Blood Pressure 127/58 02/04/17 08:55 O2 Sat by Pulse Oximetry (%) 96 02/04/17 02:12 Neck: Yes: Supple Cardiovascular: Yes: Regular Rate and Rhythm, S1, S2 Respiratory: Yes: CTA Bilaterally Gastrointestinal: Yes: Normal Bowel Sounds, Soft, Other (Nephrostomy tube in place) Edema: No Additional Findings/Remarks: Review of Systems Cardiovascular: As noted above Respiratory: denies: denies: Cough or Sputum Production Gastrointestinal: denies: Nausea, Vomiting, Diarrhea, Constipation (+) Abdominal Discomfort - now resolved Musculoskeletal: No Symptoms Reported Endocrine: No Symptoms Reported Labs: CBC, BMP 02/04/17 05:35 02/04/17 05:35 Assessment/Plan 1. Abdominal discomfort related to an obstructing left ureteral stone complicated by urosepsis, post percutaneous nephrostomy 2. Chest pain syndrome in a patient with known CAD post multi-vessel PCI stent angina pectoris, with ACS - demand ischemic injury 3. Diastolic LV dysfunction with chronic class I NYHA classification LV failure , compensated 4. Paroxysmal atrial fibrillation previous history of RFA, [id number] score of 5, currently on A/C therapy with NOAC 5. HTN 6. DM 7. Hyperlipidemia 8. History of KATJA 9. Acute on chronic kidney disease 10. Anemia PLAN: 1. Continue Lopressor and Amlodipine 2. Restart Losartan when renal function recovers 3. Continue Ranexa and Imdur 4. Continue Eliquis plus ASA has been stopped - but to be restarted once intervention is done 5. Antibiotics coverage 6. intervention/surgery to follow Further plans are to follow Riley Brandt MD
[2017-02-04] MEDS: ERTAPENEM SODIUM 1 GM in SODIUM CHLORIDE 50 ML IVPB SCH (10:52)
--- NOTE | 2017-02-04 11:32 | PN ---
Progress Note (short form) - Note Progress Note: alert doing well feels well Vital Signs Period Temp Pulse Resp BP Sys/Crawford Pulse Ox Last 24 Hr 97.5 F-98.4 F 69-84 16-22 113-151/58-89 96-96 cor-rrr lungs clear abd soft,nt, no suprapubic pain or cvat ext no edema +PCN +coughlin CBC, BMP 02/04/17 05:35 02/04/17 05:35 Microbiology 01/31/17 14:03 Blood - Peripheral Venous Blood Culture - Preliminary NO GROWTH OBTAINED AFTER 72 HOURS, INCUBATION TO CONTINUE FOR 2 DAYS. 01/31/17 14:25 Blood - Peripheral Venous Blood Culture - Preliminary NO GROWTH OBTAINED AFTER 72 HOURS, INCUBATION TO CONTINUE FOR 2 DAYS. 01/31/17 19:31 Urine - Urine Nephrostomy Tube Urine Culture - Final Escherichia Coli Esbl [employer] 01/31/17 02:20 Urine - Urine Clean Catch Urine Culture - Final Escherichia Coli Esbl [employer] a/p sepsis/UTI s/p PCN for obstructing stone cultures Ecoli ESBL history of ESBL organisms and VRE LORY continue ertapenem day #4
--- NOTE | 2017-02-04 11:38 | PN ---
Progress Note (short form) - Note Progress Note: Renal Follow up for LORY on CKD Pt seen and examined at the bedside no acute complaints denies sob, chest pian, fever, chills, abd pain nephrostomy draining well Vital Signs Temperature 98.4 F 02/04/17 08:55 Pulse Rate 82 02/04/17 08:55 Respiratory Rate 22 02/04/17 08:55 Blood Pressure 127/58 02/04/17 08:55 O2 Sat by Pulse Oximetry (%) 96 02/04/17 02:12 Intake & Output 02/01/17 02/02/17 02/03/17 02/04/17 23:59 23:59 23:59 23:59 Intake Total 2750 1550 350 250 Output Total 1600 3450 3350 850 Balance 1150 -1900 -3000 -600 Gen: NAD CVS: RRR, No M/R Lungs: CTA, no rales Abd: Soft NT/ND Ext: No edema, clubbing or cyanosis : Left sided nephrostomy tube in place CBC, BMP 02/04/17 05:35 02/04/17 05:35 Laboratory Tests 02/03/17 02/04/17 08:15 05:35 Calcium 8.8 Phosphorus 3.4 D Magnesium 1.5 L Troponin I 5.72 H* D Albumin 2.6 L Current Medications Amlodipine Besylate (Norvasc -) 2.5 mg PO DAILY [facility] Last Admin: 02/04/17 09:00 Dose: 2.5 mg Aspirin (Ecotrin -) 81 mg PO DAILY [facility] Ertapenem 1 gm/ Sodium (Chloride) 50 mls @ 50 mls/hr IVPB DAILY [facility] PRN Reason: Protocol Last Admin: 02/04/17 10:52 Dose: 50 mls/hr Insulin Aspart (Novolog Vial Sliding Scale -) 1 vial SQ ACHS [facility] PRN Reason: Protocol Last Admin: 02/04/17 06:54 Dose: Not Given Insulin Detemir (Levemir Vial) 14 units SQ HS [facility] Last Admin: 02/03/17 22:46 Dose: 14 units Isosorbide Mononitrate (Imdur -) 30 mg PO DAILY [facility] Last Admin: 02/04/17 09:00 Dose: 30 mg Metoprolol Tartrate (Lopressor -) 25 mg PO BID [facility] Last Admin: 02/04/17 08:59 Dose: 25 mg Nitroglycerin (Nitrostat -) 0.4 mg SL Q5M PRN PRN Reason: FOR CHEST PAIN Ondansetron HCl (Zofran Injection) 4 mg IVPB Q6H PRN PRN Reason: NAUSEA Ranitidine HCl (Zantac -) 150 mg PO BID [facility] Last Admin: 02/04/17 09:00 Dose: 150 mg Ranolazine (Ranexa -) 500 mg PO BID [facility] Last Admin: 02/04/17 09:00 Dose: 500 mg A/P This is a 71 year old Gentleman with PMhx of CKD stage 3 (B/L Cr 1.4-1.6), DM, CAD, Hx of Nephrolithiasis presented with Acute Abd pain and found to have left sided hydronephrosis with urethral stone #LORY secondary to obstruction Cr imporving s/p PCN continue to trend BUN/cr off IVF BP stable avoid NSAIDs, NISHANT/ARB until renal function at baseline #Complicated Urinary Tract Infection/E. coli On Ertapenum ID following #Anemia Trend CBC #Elevated Troponins/Demand Ischemia Cardiology following #Hypertension continue amlodipine and metoprolol Thank you Armando Sparks DO
--- NOTE | 2017-02-04 14:53 | PN ---
Physical Exam: SUBJECTIVE: Patient seen and examined Patient resting in bed. Afebrile, hemodynamically stable. No acute events. On 3L NC. feels well. Still has hematuria in coughlin bag but yellow urine in nephrostomy bag. U) 1700 nephrostomy and 1650 coughlin. deneis chest pain, sob, h/a , abd pain, n/v, diarrhea. OBJECTIVE: Vital Signs Period Temp Pulse Resp BP Sys/Crawford Pulse Ox Last 24 Hr 97.5 F-98.4 F 69-84 16-22 113-151/58-89 94-96 GENERAL: The patient is awake, alert, and fully oriented, in no acute distress. HEAD: Normal with no signs of trauma. EYES: PERRL, extraocular movements intact, sclera anicteric, conjunctiva clear. No ptosis. ENT: moist mucous membranes. NECK: supple, no jvd. LUNGS: Breath sounds equal, clear to auscultation bilaterally, bibasilar crackles HEART: Regular rate and rhythm, S1, S2 ABDOMEN: Soft, nontender, nondistended, normoactive bowel sounds. L nephrostomy tube in place EXTREMITIES: 2+ pulses, warm, well-perfused, no edema. NEUROLOGICAL: Cranial nerves II through XII grossly intact. Normal speech, gait not observed. PSYCH: Normal mood, normal affect. SKIN: Warm, dry Laboratory Results - last 24 hr 02/03/17 02/03/17 02/04/17 17:52 22:29 05:35 WBC RBC Hgb Hct MCV MCHC RDW Plt Count MPV Sodium 136 Potassium 3.7 Chloride 98 Carbon Dioxide 27 Anion Gap 11 BUN 25 H Creatinine 1.4 H POC Glucometer 260 355 Random Glucose 178 H Calcium 8.8 Phosphorus 3.4 D Magnesium 1.5 L 02/04/17 02/04/17 02/04/17 05:35 05:59 12:03 WBC 6.9 RBC 3.68 L Hgb 10.5 L Hct 31.5 L MCV 85.4 MCHC 33.2 RDW 19.9 H Plt Count 284 MPV 9.3 Sodium Potassium Chloride Carbon Dioxide Anion Gap BUN Creatinine POC Glucometer 184 233 Random Glucose Calcium Phosphorus Magnesium Active Medications Generic Name Dose Route Start Last Admin Trade Name Freq PRN Reason Stop Dose Admin Amlodipine Besylate 2.5 mg 02/03/17 10:00 02/04/17 09:00 Norvasc - PO 2.5 mg DAILY LON[facility] Administration Aspirin 81 mg 02/04/17 15:00 Ecotrin - PO DAILY [facility] Ertapenem 1 gm/ Sodium 50 mls @ 50 mls/hr 02/03/17 22:00 02/04/17 10:52 Chloride IVPB 50 mls/hr DAILY LON[facility] Administration Protocol Insulin Aspart 1 vial 02/02/17 16:30 02/04/17 12:59 Novolog Vial Sliding Scale - SQ 2 units ACHS LONNIE Administration Protocol Insulin Detemir 14 units 02/02/17 22:00 02/03/17 22:46 Levemir Vial SQ 14 units HS LONNIE Administration Isosorbide Mononitrate 30 mg 02/03/17 10:00 02/04/17 09:00 Imdur - PO 30 mg DAILY [facility] Administration Metoprolol Tartrate 25 mg 02/02/17 22:00 02/04/17 08:59 Lopressor - PO 25 mg BID [facility] Administration Nitroglycerin 0.4 mg 02/02/17 12:13 Nitrostat - SL Q5M PRN FOR CHEST PAIN Ondansetron HCl 4 mg 02/02/17 12:13 Zofran Injection IVPB Q6H PRN NAUSEA Ranitidine HCl 150 mg 02/02/17 22:00 02/04/17 09:00 Zantac - PO 150 mg BID LONNIE Administration Ranolazine 500 mg 02/02/17 22:00 02/04/17 09:00 Ranexa - PO 500 mg BID LONNIE Administration ASSESSMENT/PLAN: This is a 71 yo M with PMH of CAD, coronary PCI/stents, CHF, paroxysmal a fib on eliquis, HTN, HLD< DM, Cholelithiasis and Nephrolithiasis, who presented to ED with abd pain, diarrhea, and atypical chest pain lasting for several days Urosepsis -s/p L perc nephrostomy for obstructing stone -UA appreciated -coughlin -Urine culture : ESBL -ertapenem -IVF hydration -hematuria resolving -h/h stable -hold eliquis, asa -ureteral stent to be placed -ID consult -Urology consult Demand ischemia -troponin trending down, can stop following -asymptomatic -NTG prn -hold asa 81 d until stent placed CAD -compensated -imdur 30 d -lopressor 25 bid -restart losartan when creat at baseline HTN -amlodipine 2.5 d LORY -Renal US, CT appreciated: mild/moderate hydronephrosis, obstructive stone -obstructive and cardiorenal component -nephrology consult -Strict I/O -creat trending down (1.6) A fib -hold eliquis for stent DM -sliding scale -Levemir 14 HS -BGM FEN No IVF lytes stable cardiac diet Dispo: 4s Problem List - Problems (1) Afib Code(s): I48.91 - UNSPECIFIED ATRIAL FIBRILLATION Qualifiers: Qualified Code(s): I48.0 - Paroxysmal atrial fibrillation (2) CAD (coronary artery disease) Code(s): I25.10 - ATHSCL HEART DISEASE OF [place] CORONARY ARTERY W/O ANG PCTRS Qualifiers: (3) Demand ischemia Code(s): I24.8 - OTHER FORMS OF ACUTE ISCHEMIC HEART DISEASE (4) Hydronephrosis with renal and ureteral calculous obstruction Code(s): N13.2 - HYDRONEPHROSIS WITH RENAL AND URETERAL CALCULOUS OBSTRUCTION (5) Hyperlipidemia Code(s): E78.5 - HYPERLIPIDEMIA, UNSPECIFIED Qualifiers: Qualified Code(s): E78.4 - Other hyperlipidemia (6) UTI (urinary tract infection) Code(s): N39.0 - URINARY TRACT INFECTION, SITE NOT SPECIFIED (7) Atrial fibrillation by electrocardiography Code(s): I48.91 - UNSPECIFIED ATRIAL FIBRILLATION (8) Bladder stones Code(s): N21.0 - CALCULUS IN BLADDER (9) Chest pain Code(s): R07.9 - CHEST PAIN, UNSPECIFIED Qualifiers: Qualified Code(s): R07.9 - Chest pain, unspecified (10) Cholelithiasis without obstruction Code(s): K80.20 - CALCULUS OF GALLBLADDER W/O CHOLECYSTITIS W/O OBSTRUCTION (11) Controlled diabetes mellitus with diabetic nephropathy, with long-term current use of insulin Code(s): E11.21 - TYPE 2 DIABETES MELLITUS WITH DIABETIC NEPHROPATHY Z79.4 - AUTOCLAVE OPERATOR (CURRENT) USE OF INSULIN Qualifiers: Qualified Code(s): E11.21 - Type 2 diabetes mellitus with diabetic nephropathy; Z79.4 - superintendent marine oil terminal (current) use of insulin (12) 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 Code(s): E11.9 - TYPE 2 DIABETES MELLITUS WITHOUT COMPLICATIONS Qualifiers: Qualified Code(s): E11.9 - Type 2 diabetes mellitus without complications (13) 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 due to underlying condition with hyperglycemia Code(s): E08.65 - DIABETES DUE TO UNDERLYING CONDITION W HYPERGLYCEMIA Qualifiers: Qualified Code(s): E08.65 - 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 due to underlying condition with hyperglycemia (14) Gall stone Code(s): K80.20 - CALCULUS OF GALLBLADDER W/O CHOLECYSTITIS W/O OBSTRUCTION (15) HTN (hypertension) Code(s): I10 - ESSENTIAL (PRIMARY) HYPERTENSION Qualifiers: Qualified Code(s): I10 - Essential (primary) hypertension (16) Kidney stone Code(s): N20.0 - CALCULUS OF KIDNEY (17) Paroxysmal a-fib Code(s): I48.0 - PAROXYSMAL ATRIAL FIBRILLATION (18) S/P coronary artery stent placement Code(s): Z95.5 - PRESENCE OF CORONARY ANGIOPLASTY IMPLANT AND GRAFT (19) Sepsis Code(s): A41.9 - SEPSIS, UNSPECIFIED ORGANISM Qualifiers: Qualified Code(s): A41.9 - Sepsis, unspecified organism (20) Urinary retention Code(s): R33.9 - RETENTION OF URINE, UNSPECIFIED Visit type - Emergency Visit Emergency Visit: Yes ED Registration Date: 01/31/17 Care time: The patient presented to the Emergency Department on the above date and was hospitalized for further evaluation of their emergent condition. - New Patient This patient is new to me today: No - Critical Care Critical Care patient: No - Discharge Referral Referred to [facility] No
[2017-02-04] MEDS: ASPIRIN COATED 81 MG TABLET.EC PO SCH (15:50)
--- NOTE | 2017-02-04 17:27 | PN ---
Teaching Attending Note Name of Resident: Lisa Gordon ATTENDING PHYSICIAN STATEMENT I saw and evaluated the patient. I reviewed the resident's note and discussed the case with the resident. I agree with the resident's findings and plan as documented. SUBJECTIVE: no fever ro chills, no abd pain , feels better . no SOB or palpitationsn OBJECTIVE: NAD CV : RRR Lungs : CTAB ext : no edema ABd : sfot, NT, ND , NL BS ASSESSMENT AND PLAN: 71 y/o man with h/o HTN, P A fib, CKD , Dyastolic dysfunction , and KATJA , who presented wtih abd discomfort and was found to have uro sepsis 1- uro sepsis : 2/2 obstruction . s/p JOSELUIS drainage Ucx with ESBL - cont ertapenem - for stent placement tomorrow - cont to hold eliquis 2- LORY on CKD , due to obstructive uropathy . - renal function improved - monitor 3- demand ischemia : cont ASA, Imdur and BB 4- h/o D CHF : stable . euvolemic 5- IDDM : cont insulin ( levemir and SSI ) dispo : HLOC
[2017-02-04] MEDS: INSULIN DETEMIR 100 UNITS/ML MDV SQ SCH (21:42)
[2017-02-05] MEDS: INSULIN SLIDING SCALE (NOVOLOG) 1 VIAL SQ SCH ×4 (06:03→21:53)
[2017-02-05 06:56] LABS: CALCIUM 8.6 mg/dL (8.5-10.1); CREATININE 1.4 mg/dL (0.7-1.3); MAGNESIUM 1.5 mg/dL (1.8-2.4)
[2017-02-05 06:59] LABS: MCH 28.5 pg (25.7-33.7); MCHC 33.4 g/dl (32.0-35.9); MEAN CELL VOLUME 85.3 fl (80-96); MEAN PLT VOLUME 9.2 fl (7.5-11.1); PLATELET COUNT 335 K/MM3 (134-434); RDW 19.4 % (11.9-15.9); WHITE BLOOD COUNT 8.7 K/mm3 (4.0-10.0)
[2017-02-05 07:00] LABS: PHOSPHOROUS 3.1 mg/dL (2.5-4.9)
[2017-02-05] MEDS ORDERED: DEXTROSE 5%-0.45% SALINE 1,000 ML IV SCH (09:00)
[2017-02-05] MEDS ORDERED: MAGNESIUM SULF 50% (8.12 MEQ/2 ML-1 GM VIAL) IVPB ONE (09:00)
[2017-02-05] MEDS ORDERED: PT OWN MED DRAWER 7, Y5N ONE (09:05)
[2017-02-05] MEDS: RANITIDINE HCL 150 MG TABLET (FP) PO SCH ×2 (09:31→21:54)
[2017-02-05] MEDS: RANOLAZINE E.R. 500 MG TABLET (FP) PO SCH ×2 (09:31→21:54)
[2017-02-05] MEDS: amLODIPine BESYLATE 2.5 MG TABLET (FP) PO SCH (09:31)
[2017-02-05] MEDS: METOPROLOL TARTRATE 25 MG TABLET (FP) PO SCH ×2 (09:32→21:54)
[2017-02-05] MEDS: ASPIRIN COATED 81 MG TABLET.EC PO SCH (09:32)
[2017-02-05] MEDS: ISOSORBIDE MONONITRATE 30 MG TAB.SR.24H (FP) PO SCH (09:32)
--- NOTE | 2017-02-05 11:47 | PN ---
Progress Note, Physician History of Present Illness: Underwent cysto/attempted left ureteroscopy, bladder biopsy under spinal anesthesia without sequela. Denies chest pain, dyspnea. - Current Medication List Current Medications: Active Medications Amlodipine Besylate (Norvasc -) 2.5 mg PO DAILY [facility] Last Admin: 02/05/17 09:31 Dose: 2.5 mg Aspirin (Ecotrin -) 81 mg PO DAILY [facility] Last Admin: 02/05/17 09:32 Dose: Not Given Ertapenem 1 gm/ Sodium (Chloride) 50 mls @ 50 mls/hr IVPB DAILY [facility] PRN Reason: Protocol Last Admin: 02/04/17 10:52 Dose: 50 mls/hr Insulin Aspart (Novolog Vial Sliding Scale -) 1 vial SQ ACHS [facility] PRN Reason: Protocol Last Admin: 02/05/17 06:03 Dose: Not Given Insulin Detemir (Levemir Vial) 14 units SQ HS [facility] Last Admin: 02/04/17 21:42 Dose: Not Given Isosorbide Mononitrate (Imdur -) 30 mg PO DAILY [facility] Last Admin: 02/05/17 09:32 Dose: 30 mg Metoprolol Tartrate (Lopressor -) 25 mg PO BID [facility] Last Admin: 02/05/17 09:32 Dose: 25 mg Nitroglycerin (Nitrostat -) 0.4 mg SL Q5M PRN PRN Reason: FOR CHEST PAIN Ondansetron HCl (Zofran Injection) 4 mg IVPB Q6H PRN PRN Reason: NAUSEA Ranitidine HCl (Zantac -) 150 mg PO BID [facility] Last Admin: 02/05/17 09:31 Dose: 150 mg Ranolazine (Ranexa -) 500 mg PO BID [facility] Last Admin: 02/05/17 09:31 Dose: 500 mg - Objective Vital Signs: Vital Signs Temperature 98.4 F 02/05/17 09:00 Pulse Rate 80 02/05/17 09:00 Respiratory Rate 20 02/05/17 09:00 Blood Pressure 146/71 02/05/17 09:00 O2 Sat by Pulse Oximetry (%) 94 L 02/04/17 21:00 Constitutional: Yes: No Distress, Calm Neck: Yes: Supple Cardiovascular: Yes: Regular Rate and Rhythm Respiratory: Yes: Regular, Diminished, On Nasal O2 Gastrointestinal: Yes: Normal Bowel Sounds, Soft, Abdomen, Obese Edema: No Labs: CBC, BMP 02/05/17 05:35 02/05/17 05:35 INR, PTT INR 1.79 (0.82-1.09) H D 02/01/17 05:00 Assessment/Plan 1. Obstructing left ureteral stone complicated by urosepsis, post percutaneous nephrostomy, cystoscopy and bladder biopsy 2. Chest pain syndrome in a patient with known CAD post multi-vessel PCI stent angina pectoris, with ACS - demand ischemic injury 3. Diastolic LV dysfunction with chronic class I NYHA classification LV failure , compensated 4. Paroxysmal atrial fibrillation previous history of RFA, [id number] score of 5, currently on A/C therapy with NOAC 5. HTN 6. DM 7. Hyperlipidemia 8. History of KATJA 9. Acute on chronic kidney disease 10. Anemia PLAN: 1. Continue Lopressor 25 bid and Amlodipine 2.5 qd 2. Restart Losartan when renal function recovers 3. Continue Ranexa 500 bid and Imdur 30 qd 4. Resume Eliquis 5 bid and ASA 81 qd once post-procedure hemostasis achieved 5. Antibiotics coverage per C&S
[2017-02-05] MEDS ORDERED: MIDAZOLAM HCL 2 MG/2 ML SINGLE DOSE VIAL ONE (11:49)
--- NOTE | 2017-02-05 12:12 | PN ---
Teaching Attending Note Name of Resident: Lisa Gordon ATTENDING PHYSICIAN STATEMENT I saw and evaluated the patient. I reviewed the resident's note and discussed the case with the resident. I agree with the resident's findings and plan as documented. SUBJECTIVE: no fever or chills, no abd pain , denies any SOB OBJECTIVE: NAD CV : RRR Lungs : CTAB ext: no edema ABd : soft , NT, ND , NL BS ASSESSMENT AND PLAN: 71 y/o man with h/o HTN, P A fib, CKD , Dyastolic dysfunction , and KATJA , who presented wtih abd discomfort and was found to have uro sepsis 1- uro-sepsis : 2/2 obstruction . s/p JOSELUIS drainage Ucx with ESBL - cont ertapenem - for stent placement today - cont to hold eliquis. will resume after procedure 2- LORY on CKD , due to obstructive uropathy . - renal function improved - cont to hold ARB 3- Demand ischemia : cont ASA, Imdur and BB 4- h/o D CHF : stable . euvolemic 5- IDDM : cont insulin ( levemir and SSI ) dispo : HLOC Current Medications Generic Name Dose Route Start Last Admin Trade Name Freq PRN Reason Stop Dose Admin Amlodipine Besylate 2.5 mg 02/03/17 10:00 02/05/17 09:31 Norvasc - PO 2.5 mg DAILY [facility] Administration Aspirin 81 mg 02/04/17 15:00 02/05/17 09:32 Ecotrin - PO Not Given DAILY [facility] Ertapenem 1 gm/ Sodium 50 mls @ 50 mls/hr 02/03/17 22:00 02/04/17 10:52 Chloride IVPB 50 mls/hr DAILY [facility] Administration Protocol Insulin Aspart 1 vial 02/02/17 16:30 02/05/17 06:03 Novolog Vial Sliding Scale - SQ Not Given ACHS LONN[facility] Protocol Insulin Detemir 14 units 02/02/17 22:00 02/04/17 21:42 Levemir Vial SQ Not Given HS [facility] Isosorbide Mononitrate 30 mg 02/03/17 10:00 02/05/17 09:32 Imdur - PO 30 mg DAILY [facility] Administration Metoprolol Tartrate 25 mg 02/02/17 22:00 02/05/17 09:32 Lopressor - PO 25 mg BID LONNIE Administration Nitroglycerin 0.4 mg 02/02/17 12:13 Nitrostat - SL Q5M PRN FOR CHEST PAIN Ondansetron HCl 4 mg 02/02/17 12:13 Zofran Injection IVPB Q6H PRN NAUSEA Ranitidine HCl 150 mg 02/02/17 22:00 02/05/17 09:31 Zantac - PO 150 mg BID LONNIE Administration Ranolazine 500 mg 02/02/17 22:00 02/05/17 09:31 Ranexa - PO 500 mg BID LONNIE Administration
--- NOTE | 2017-02-05 12:45 | PN ---
Physical Exam: SUBJECTIVE: Patient seen and examined Patient resting in bed. Afebrile, hemodynamically stable. No acute events. On 3L NC. feels well. Still has hematuria in coughlin bag and in nephrostomy bag. deneis chest pain, sob, h/a, abd pain, n/v, diarrhea. ureter stent today noon OBJECTIVE: Vital Signs Period Temp Pulse Resp BP Sys/Crawford Pulse Ox Last 24 Hr 97.6 F-98.6 F 64-82 20-20 105-146/51-71 94 GENERAL: The patient is awake, alert, and fully oriented, in no acute distress. HEAD: Normal with no signs of trauma. EYES: PERRL, extraocular movements intact, sclera anicteric, conjunctiva clear. No ptosis. ENT: moist mucous membranes. NECK: supple, no jvd. LUNGS: Breath sounds equal, clear to auscultation bilaterally, bibasilar crackles HEART: Regular rate and rhythm, S1, S2 ABDOMEN: Soft, nontender, nondistended, normoactive bowel sounds. L nephrostomy tube in place EXTREMITIES: 2+ pulses, warm, well-perfused, no edema. NEUROLOGICAL: Cranial nerves II through XII grossly intact. Normal speech, gait not observed. PSYCH: Normal mood, normal affect. SKIN: Warm, dry Laboratory Results - last 24 hr 02/04/17 02/04/17 02/04/17 12:03 17:48 21:21 WBC RBC Hgb Hct MCV MCHC RDW Plt Count MPV Sodium Potassium Chloride Carbon Dioxide Anion Gap BUN Creatinine POC Glucometer 233 250 331 Random Glucose Calcium Phosphorus Magnesium 02/05/17 02/05/17 02/05/17 05:35 05:35 05:46 WBC 8.7 RBC 3.55 L Hgb 10.1 L Hct 30.3 L MCV 85.3 MCHC 33.4 RDW 19.4 H Plt Count 335 MPV 9.2 Sodium 136 Potassium 3.8 Chloride 98 Carbon Dioxide 27 Anion Gap 11 BUN 25 H Creatinine 1.4 H POC Glucometer 174 Random Glucose 176 H Calcium 8.6 Phosphorus 3.1 Magnesium 1.5 L Active Medications Generic Name Dose Route Start Last Admin Trade Name Freq PRN Reason Stop Dose Admin Amlodipine Besylate 2.5 mg 02/03/17 10:00 02/05/17 09:31 Norvasc - PO 2.5 mg DAILY [facility]ONNIE Administration Aspirin 81 mg 02/04/17 15:00 02/05/17 09:32 Ecotrin - PO Not Given DAILY [facility] Ertapenem 1 gm/ Sodium 50 mls @ 50 mls/hr 02/03/17 22:00 02/04/17 10:52 Chloride IVPB 50 mls/hr DAILY [facility] Administration Protocol Insulin Aspart 1 vial 02/02/17 16:30 02/05/17 06:03 Novolog Vial Sliding Scale - SQ Not Given ACHS [facility] Protocol Insulin Detemir 14 units 02/02/17 22:00 02/04/17 21:42 Levemir Vial SQ Not Given HS [facility] Isosorbide Mononitrate 30 mg 02/03/17 10:00 02/05/17 09:32 Imdur - PO 30 mg DAILY [facility] Administration Metoprolol Tartrate 25 mg 02/02/17 22:00 02/05/17 09:32 Lopressor - PO 25 mg BID LONNIE Administration Nitroglycerin 0.4 mg 02/02/17 12:13 Nitrostat - SL Q5M PRN FOR CHEST PAIN Ondansetron HCl 4 mg 02/02/17 12:13 Zofran Injection IVPB Q6H PRN NAUSEA Ranitidine HCl 150 mg 02/02/17 22:00 02/05/17 09:31 Zantac - PO 150 mg BID [facility]NIE Administration Ranolazine 500 mg 02/02/17 22:00 02/05/17 09:31 Ranexa - PO 500 mg BID [facility]ONN[facility] Administration ASSESSMENT/PLAN: This is a 71 yo M with PMH of CAD, coronary PCI/stents, CHF, paroxysmal a fib on eliquis, HTN, HLD< DM, Cholelithiasis and Nephrolithiasis, who presented to ED with abd pain, diarrhea, and atypical chest pain lasting for several days Urosepsis -s/p L perc nephrostomy for obstructing stone -UA appreciated -coughlin -Urine culture : ESBL -ertapenem -hematuria resolving -h/h stable -hold eliquis, asa -ureteral stent to be placed this noon -ID consult -Urology consult Demand ischemia -troponin trended down, can stop following -asymptomatic -NTG prn -hold asa 81 d until stent placed CAD -compensated -imdur 30 d -lopressor 25 bid -will restart losartan because creat at baseline HTN -amlodipine 2.5 d LORY -Renal US, CT appreciated: mild/moderate hydronephrosis, obstructive stone -obstructive and cardiorenal component -nephrology consult -Strict I/O -creat baseline (1.4) A fib -hold eliquis for stent DM -sliding scale -Levemir 14 HS -BGM FEN No IVF lytes stable cardiac diet Dispo: 4s Problem List - Problems (1) Afib Code(s): I48.91 - UNSPECIFIED ATRIAL FIBRILLATION Qualifiers: Qualified Code(s): I48.0 - Paroxysmal atrial fibrillation (2) CAD (coronary artery disease) Code(s): I25.10 - ATHSCL HEART DISEASE OF [place] CORONARY ARTERY W/O ANG PCTRS Qualifiers: (3) Demand ischemia Code(s): I24.8 - OTHER FORMS OF ACUTE ISCHEMIC HEART DISEASE (4) Hydronephrosis with renal and ureteral calculous obstruction Code(s): N13.2 - HYDRONEPHROSIS WITH RENAL AND URETERAL CALCULOUS OBSTRUCTION (5) Hyperlipidemia Code(s): E78.5 - HYPERLIPIDEMIA, UNSPECIFIED Qualifiers: Qualified Code(s): E78.4 - Other hyperlipidemia (6) UTI (urinary tract infection) Code(s): N39.0 - URINARY TRACT INFECTION, SITE NOT SPECIFIED (7) Atrial fibrillation by electrocardiography Code(s): I48.91 - UNSPECIFIED ATRIAL FIBRILLATION (8) Bladder stones Code(s): N21.0 - CALCULUS IN BLADDER (9) Chest pain Code(s): R07.9 - CHEST PAIN, UNSPECIFIED Qualifiers: Qualified Code(s): R07.9 - Chest pain, unspecified (10) Cholelithiasis without obstruction Code(s): K80.20 - CALCULUS OF GALLBLADDER W/O CHOLECYSTITIS W/O OBSTRUCTION (11) Controlled diabetes mellitus with diabetic nephropathy, with long-term current use of insulin Code(s): E11.21 - TYPE 2 DIABETES MELLITUS WITH DIABETIC NEPHROPATHY 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.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) USE OF INSULIN Qualifiers: Qualified Code(s): E11.21 - Type 2 diabetes mellitus with diabetic nephropathy; Z79.4 - salvage determiner (current) use of insulin (12) 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 Code(s): E11.9 - TYPE 2 DIABETES MELLITUS WITHOUT COMPLICATIONS Qualifiers: Qualified Code(s): E11.9 - Type 2 diabetes mellitus without complications (13) 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 due to underlying condition with hyperglycemia Code(s): E08.65 - DIABETES DUE TO UNDERLYING CONDITION W HYPERGLYCEMIA Qualifiers: Qualified Code(s): E08.65 - 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 due to underlying condition with hyperglycemia (14) Gall stone Code(s): K80.20 - CALCULUS OF GALLBLADDER W/O CHOLECYSTITIS W/O OBSTRUCTION (15) HTN (hypertension) Code(s): I10 - ESSENTIAL (PRIMARY) HYPERTENSION Qualifiers: Qualified Code(s): I10 - Essential (primary) hypertension (16) Kidney stone Code(s): N20.0 - CALCULUS OF KIDNEY (17) Paroxysmal a-fib Code(s): I48.0 - PAROXYSMAL ATRIAL FIBRILLATION (18) S/P coronary artery stent placement Code(s): Z95.5 - PRESENCE OF CORONARY ANGIOPLASTY IMPLANT AND GRAFT (19) Sepsis Code(s): A41.9 - SEPSIS, UNSPECIFIED ORGANISM Qualifiers: Qualified Code(s): A41.9 - Sepsis, unspecified organism (20) Urinary retention Code(s): R33.9 - RETENTION OF URINE, UNSPECIFIED Visit type - Emergency Visit Emergency Visit: Yes ED Registration Date: 01/31/17 Care time: The patient presented to the Emergency Department on the above date and was hospitalized for further evaluation of their emergent condition. - New Patient This patient is new to me today: No - Critical Care Critical Care patient: No - Discharge Referral Referred to [facility] Med [facility].C.: No
--- NOTE | 2017-02-05 13:17 | OP ---
Operative Note - Note: Operative Date: 02/05/17 Pre-Operative Diagnosis: obstructing LDU stone Operation: cysto/attemptd left ureteroscopy, bladder biopsy Post-Operative Diagnosis: Same as Pre-op (plus bladder polyp post wall) Surgeon: Daniel Edmondson Anesthesia: Spinal Operative Report Dictated: Yes
[2017-02-05] MEDS ORDERED: LACTATED RINGERS SOLUTION 1,000 ML IV SCH ×2 (13:30→15:15)
[2017-02-05] MEDS ORDERED: ONDANSETRON 4 MG/2 ML VIAL IVPB PRN (14:21)
[2017-02-05] MEDS ORDERED: NITROGLYCERIN SUBLINGUAL 1/150 0.4 MG TAB SL PRN (14:21)
--- NOTE | 2017-02-05 15:07 | PN ---
Progress Note (short form) - Note Progress Note: S/P cystoscopy and bladder biopsy. No janelle-operative complications noted. No CP, SOB, or abdominal pain. Intake & Output 02/02/17 02/03/17 02/04/17 02/05/17 23:59 23:59 23:59 23:59 Intake Total 1550 350 370 600 Output Total 3450 3350 1600 650 Balance -1900 -3000 -1230 -50 Last Vital Signs Temp Pulse Resp BP Pulse Ox 98.0 F 61 16 139/73 98 02/05/17 13:13 02/05/17 14:30 02/05/17 14:30 02/05/17 14:30 02/05/17 14:30 Active Medications Amlodipine Besylate (Norvasc -) 2.5 mg PO DAILY [facility] Fentanyl (Sublimaze Injection -) 25 mcg IVPUSH [id number] PRN PRN Reason: PAIN Stop: 02/08/17 13:22 Ertapenem 1 gm/ Sodium (Chloride) 50 mls @ 50 mls/hr IVPB DAILY [facility] PRN Reason: Protocol Lactated Ringer's (Lactated Ringers Solution) 1,000 mls @ 100 mls/hr IV ASDIR [facility] Insulin Aspart (Novolog Vial Sliding Scale -) 1 vial SQ ACHS [facility] PRN Reason: Protocol Insulin Detemir (Levemir Vial) 14 units SQ HS [facility] Isosorbide Mononitrate (Imdur -) 30 mg PO DAILY [facility] Metoprolol Tartrate (Lopressor -) 25 mg PO BID [facility] Nitroglycerin (Nitrostat -) 0.4 mg SL Q5M PRN PRN Reason: FOR CHEST PAIN Ondansetron HCl (Zofran Injection) 4 mg IVPB Q6H PRN PRN Reason: NAUSEA Ranitidine HCl (Zantac -) 150 mg PO BID [facility] Ranolazine (Ranexa -) 500 mg PO BID [facility] Constitutional: Yes: Awake and alert, NAD Eyes: Yes: Conjunctiva Clear HENT: Yes: WNL, Atraumatic, Normocephalic Neck: Yes: Supple Cardiovascular: Yes: Regular Rate and Rhythm Respiratory: Yes: CTA Bilaterally, On Nasal O2 Gastrointestinal: Yes: Normal Bowel Sounds, Soft, Other (non tender) Renal/: Yes: [place] Present (Lt nephrostomy tube site) Extremities: Yes: WNL (warm) Edema: No Peripheral Pulses WNL: Yes Neurological: Yes: Alert, Non-focal ...Motor Strength: WNL Psychiatric: Yes: Alert, Oriented Labs: Laboratory Results - last 24 hr 02/04/17 02/04/17 02/05/17 17:48 21:21 05:35 WBC RBC Hgb Hct MCV MCHC RDW Plt Count MPV Sodium 136 Potassium 3.8 Chloride 98 Carbon Dioxide 27 Anion Gap 11 BUN 25 H Creatinine 1.4 H POC Glucometer 250 331 Random Glucose 176 H Calcium 8.6 Phosphorus 3.1 Magnesium 1.5 L 02/05/17 02/05/17 05:35 05:46 WBC 8.7 RBC 3.55 L Hgb 10.1 L Hct 30.3 L MCV 85.3 MCHC 33.4 RDW 19.4 H Plt Count 335 MPV 9.2 Sodium Potassium Chloride Carbon Dioxide Anion Gap BUN Creatinine POC Glucometer 174 Random Glucose Calcium Phosphorus Magnesium Problem List - Problems (1) Abdominal pain in male Code(s): R10.9 - UNSPECIFIED ABDOMINAL PAIN (2) Demand ischemia Code(s): I24.8 - OTHER FORMS OF ACUTE ISCHEMIC HEART DISEASE (3) Hydronephrosis with renal and ureteral calculous obstruction Code(s): N13.2 - HYDRONEPHROSIS WITH RENAL AND URETERAL CALCULOUS OBSTRUCTION Assessment/Plan ABX per ID O2 as needed VTE prophylaxis Dr Frankel
[2017-02-05] MEDS: ERTAPENEM SODIUM 1 GM in SODIUM CHLORIDE 50 ML IVPB SCH ×2 (15:19→17:28)
[2017-02-05] MEDS: INSULIN DETEMIR 100 UNITS/ML MDV SQ SCH (21:41)
[2017-02-05] MEDS ORDERED: INSULIN (NOVOLOG) ASPART 100 UNITS/ML 10ML VIAL ONE (21:46)
[2017-02-06] MEDS: INSULIN SLIDING SCALE (NOVOLOG) 1 VIAL SQ SCH ×4 (06:07→21:08)
[2017-02-06 06:51] LABS: MCH 28.1 pg (25.7-33.7); MCHC 32.9 g/dl (32.0-35.9); MEAN CELL VOLUME 85.5 fl (80-96); MEAN PLT VOLUME 8.7 fl (7.5-11.1); PLATELET COUNT 430 K/MM3 (134-434); RDW 19.3 % (11.9-15.9); WHITE BLOOD COUNT 8.5 K/mm3 (4.0-10.0)
[2017-02-06 07:12] LABS: CALCIUM 8.8 mg/dL (8.5-10.1); COCKROFT - GAULT 70.37; CREATININE 1.4 mg/dL (0.7-1.3); MAGNESIUM 1.6 mg/dL (1.8-2.4); PHOSPHOROUS 2.9 mg/dL (2.5-4.9)
[2017-02-06] MEDS ORDERED: MAGNESIUM SULF 50% (8.12 MEQ/2 ML-1 GM VIAL) IVPB ONE (09:00)
--- NOTE | 2017-02-06 09:08 | OP ---
DATE OF OPERATION: 02/05/2017 PREOPERATIVE DIAGNOSIS: Obstructing left distal ureteral stone. POSTOPERATIVE DIAGNOSES: Obstructing left distal ureteral stone plus bladder polyp. PROCEDURE: Cystoscopy, attempted intubation of left ureter, and bladder biopsy. SURGEON: Alpesh Smith MD INDICATION: Patient is a 71-year-old male who developed sepsis secondary to obstructing left distal ureteral stone. He had emergent nephrostomy tube placement. Now, patient is taken to the OR for ureteroscopy, laser lithotripsy. DESCRIPTION OF PROCEDURE: Patient was taken to the OR. Was placed supine on the table. After cardiac monitoring was initiated, general anesthesia established. He was prepped and draped in the dorsal lithotomy position. A 22-sheath cystoscope was introduced without difficulty into a normal prostatic urethra, status post . The bladder was inspected. There was a medium-sized polyp on the posterior wall of the bladder that looked very smooth faced, looked almost inflammatory in nature. It was actively oozing blood. I took a biopsy of this with the Igor biopsy forceps and then cauterized it. Pending the results, he may require formal TURBT of that area. Attention was then turned to the left ureteral orifice. This was intubated with a ureteral catheter, but multiple attempts in placing a glidewire met with resistance and so the glidewire could not be advanced. Then, a Salinas catheter was then placed. Patient was transferred to the recovery room in stable condition. There were no complications. Estimated blood loss was minimal. The plan will be to have the patient have an antegrade stent placed by Interventional Radiology. ALPESH SMITH M.D. [id number]
[2017-02-06] MEDS ORDERED: INSULIN (NOVOLOG) ASPART 100 UNITS/ML 10ML VIAL ONE (09:19)
[2017-02-06] MEDS: ISOSORBIDE MONONITRATE 30 MG TAB.SR.24H (FP) PO SCH (09:34)
[2017-02-06] MEDS: LOSARTAN POTASSIUM 50 MG TABLET (FP) PO SCH (09:35)
[2017-02-06] MEDS: METOPROLOL TARTRATE 25 MG TABLET (FP) PO SCH ×2 (09:35→21:09)
[2017-02-06] MEDS: amLODIPine BESYLATE 2.5 MG TABLET (FP) PO SCH (09:35)
[2017-02-06] MEDS: RANITIDINE HCL 150 MG TABLET (FP) PO SCH ×2 (09:36→21:09)
[2017-02-06] MEDS: RANOLAZINE E.R. 500 MG TABLET (FP) PO SCH ×2 (09:36→21:08)
--- NOTE | 2017-02-06 10:06 | PN ---
Progress Note, Physician History of Present Illness: POD#1 cysto/attempted left ureteroscopy, bladder biopsy under spinal anesthesia without sequela. Denies chest pain, dyspnea. Planned for reattempt of left ureteral stent placement. - Current Medication List Current Medications: Active Medications Amlodipine Besylate (Norvasc -) 2.5 mg PO DAILY [facility] Last Admin: 02/06/17 09:35 Dose: 2.5 mg Fentanyl (Sublimaze Injection -) 25 mcg IVPUSH [id number] PRN PRN Reason: PAIN Stop: 02/08/17 13:22 Ertapenem 1 gm/ Sodium (Chloride) 50 mls @ 50 mls/hr IVPB DAILY [facility] PRN Reason: Protocol Last Admin: 02/05/17 15:19 Dose: 50 mls/hr Insulin Aspart (Novolog Vial Sliding Scale -) 1 vial SQ ACHS [facility] PRN Reason: Protocol Last Admin: 02/06/17 06:07 Dose: Not Given Insulin Detemir (Levemir Vial) 14 units SQ HS [facility] Last Admin: 02/05/17 21:41 Dose: Not Given Isosorbide Mononitrate (Imdur -) 30 mg PO DAILY [facility] Last Admin: 02/06/17 09:34 Dose: 30 mg Losartan Potassium (Cozaar -) 50 mg PO DAILY [facility] Last Admin: 02/06/17 09:35 Dose: 50 mg Metoprolol Tartrate (Lopressor -) 25 mg PO BID [facility] Last Admin: 02/06/17 09:35 Dose: 25 mg Nitroglycerin (Nitrostat -) 0.4 mg SL Q5M PRN PRN Reason: FOR CHEST PAIN Ondansetron HCl (Zofran Injection) 4 mg IVPB Q6H PRN PRN Reason: NAUSEA Ranitidine HCl (Zantac -) 150 mg PO BID [facility] Last Admin: 02/06/17 09:36 Dose: 150 mg Ranolazine (Ranexa -) 500 mg PO BID [facility] Last Admin: 02/06/17 09:36 Dose: 500 mg - Objective Vital Signs: Vital Signs Temperature 98.4 F 02/06/17 06:00 Pulse Rate 81 02/06/17 06:00 Respiratory Rate 20 02/06/17 06:00 Blood Pressure 127/62 02/06/17 06:00 O2 Sat by Pulse Oximetry (%) 94 L 02/05/17 20:35 Constitutional: Yes: No Distress, Calm Neck: Yes: Supple Cardiovascular: Yes: Pulse Irregular Respiratory: Yes: Regular, Diminished Gastrointestinal: Yes: Normal Bowel Sounds, Soft, Abdomen, Obese Edema: No Labs: CBC, BMP 02/06/17 05:35 02/06/17 05:35 INR, PTT INR 1.79 (0.82-1.09) H D 02/01/17 05:00 Assessment/Plan 1. Obstructing left ureteral stone complicated by urosepsis, post percutaneous nephrostomy, cystoscopy and bladder biopsy 2. Chest pain syndrome in a patient with known CAD post multi-vessel PCI stent angina pectoris, with ACS - demand ischemic injury 3. Diastolic LV dysfunction with chronic class I NYHA classification LV failure , compensated 4. Paroxysmal atrial fibrillation previous history of RFA, [id number] score of 5, currently off A/C therapy with NOAC janelle-op 5. HTN 6. DM 7. Hyperlipidemia 8. History of KATJA 9. Acute on chronic kidney disease improved 10. Anemia PLAN: 1. Continue Lopressor 25 bid and Amlodipine 2.5 qd 2. Restarted Losartan 50 qd as renal function has recovered 3. Continue Ranexa 500 bid and Imdur 30 qd 4. Resume Eliquis 5 bid and ASA 81 qd once post-procedure hemostasis achieved 5. Antibiotics coverage per C&S
--- NOTE | 2017-02-06 10:46 | PATH ---
Surgical Pathology Report Patient Name: PIPPA CARROLL [facility]. Rec. #: [id number] /Age/Gender: 1945 (Age: 71) / M Account: [id number] Location: 4 PEDS/ADOL Taken: 02/05/2017 Received: 02/05/2017 Reported: 02/06/2017 Physicians: Daniel Edmondson M.D. Specimen(s) Received BLADDER BIOPSY Clinical History Left ureteral calculi Final Diagnosis BLADDER MASS, BIOPSY: BENIGN UROTHELIAL MUCOSA WITH MARKED ACUTE AND CHRONIC INFLAMMATION, AND EXTENSIVE DENUDEMENT OF EPITHELIUM. NO CARCINOMA IDENTIFIED. Electronically Signed Ant Freeman M.D. Gross Description Received in formalin, labeled "bladder mass" is a graves, irregular portion of soft tissue measuring 0.4 cm. in greatest dimension. The specimen is submitted in toto in one cassette. /02/05/2017 saudi02/05/2017
[2017-02-06] MEDS: ERTAPENEM SODIUM 1 GM in SODIUM CHLORIDE 50 ML IVPB SCH (11:06)
[2017-02-06] MEDS ORDERED: LEVOFLOXACIN 500 MG IVPB 100 ML IVPB ONE (13:25)
[2017-02-06] MEDS ORDERED: PICC LINE 8 ML FLUSH PROTOCOL IVPUSH PRN ×2 (13:30→15:34)
[2017-02-06] MEDS ORDERED: MIDAZOLAM HCL 2 MG/2 ML SINGLE DOSE VIAL IVPUSH ONE ×2 (13:30→14:00)
--- NOTE | 2017-02-06 13:35 | PN ---
Progress Note (short form) - Note Progress Note: D/w Dr Hunter day #7 ertapenem- plan 10 days total of treatment
--- NOTE | 2017-02-06 15:29 | PN ---
Physical Exam: SUBJECTIVE: Patient seen and examined Patient resting in bed. Afebrile, hemodynamically stable. No acute events. POD1 s/p cystoscopy and bladder polyp biopsy. To go to IR for L ureteral stent today. On 3L NC. feels well. Hematuria resolved. Deneis chest pain, sob, h/a, abd pain, n/v, diarrhea. ureter stent today noon OBJECTIVE: Vital Signs Period Temp Pulse Resp BP Sys/Crawford Pulse Ox Last 24 Hr 97.7 F-99.5 F 66-81 12-20 127-152/62-81 94-100 GENERAL: The patient is awake, alert, and fully oriented, in no acute distress. HEAD: Normal with no signs of trauma. EYES: PERRL, extraocular movements intact, sclera anicteric, conjunctiva clear. No ptosis. ENT: moist mucous membranes. NECK: supple, no jvd. LUNGS: Breath sounds equal, clear to auscultation bilaterally, bibasilar crackles HEART: Regular rate and rhythm, S1, S2 ABDOMEN: Soft, nontender, nondistended, normoactive bowel sounds. L nephrostomy tube in place EXTREMITIES: 2+ pulses, warm, well-perfused, no edema. NEUROLOGICAL: Cranial nerves II through XII grossly intact. Normal speech, gait not observed. PSYCH: Normal mood, normal affect. SKIN: Warm, dry Laboratory Results - last 24 hr 02/05/17 02/05/17 02/06/17 17:14 21:39 05:29 WBC RBC Hgb Hct MCV MCHC RDW Plt Count MPV Sodium Potassium Chloride Carbon Dioxide Anion Gap BUN Creatinine POC Glucometer 284 268 178 Random Glucose Calcium Phosphorus Magnesium 02/06/17 02/06/17 02/06/17 05:35 05:35 11:09 WBC 8.5 RBC 3.66 L Hgb 10.3 L Hct 31.3 L MCV 85.5 MCHC 32.9 RDW 19.3 H Plt Count 430 D MPV 8.7 Sodium 136 Potassium 4.3 Chloride 97 L Carbon Dioxide 31 Anion Gap 8 BUN 21 H Creatinine 1.4 H POC Glucometer 210 Random Glucose 173 H Calcium 8.8 Phosphorus 2.9 Magnesium 1.6 L Active Medications Generic Name Dose Route Start Last Admin Trade Name Freq PRN Reason Stop Dose Admin Amlodipine Besylate 2.5 mg 02/06/17 10:00 02/06/17 09:35 Norvasc - PO 2.5 mg DAILY [facility] Administration Apixaban 5 mg 02/06/17 22:00 Eliquis - PO BID [facility] Aspirin 81 mg 02/07/17 10:00 Ecotrin - PO DAILY [facility] Fentanyl 25 mcg 02/05/17 13:21 Sublimaze Injection - IVPUSH 02/08/17 13:22 [id number] PRN PAIN IV Flush 8 ml 02/06/17 13:30 Picc Line Flush IVPUSH PRN PRN Protocol Ertapenem 1 gm/ Sodium 50 mls @ 50 mls/hr 02/06/17 10:00 02/06/17 11:06 Chloride IVPB 50 mls/hr DAILY [facility] Administration Protocol Insulin Aspart 1 vial 02/05/17 16:30 02/06/17 11:09 Novolog Vial Sliding Scale - SQ Not Given ACHS [facility] Protocol Insulin Detemir 14 units 02/05/17 22:00 02/05/17 21:41 Levemir Vial SQ Not Given HS [facility] Isosorbide Mononitrate 30 mg 02/06/17 10:00 02/06/17 09:34 Imdur - PO 30 mg DAILY [facility] Administration Losartan Potassium 50 mg 02/06/17 10:00 02/06/17 09:35 Cozaar - PO 50 mg DAILY [facility] Administration Metoprolol Tartrate 25 mg 02/05/17 22:00 02/06/17 09:35 Lopressor - PO 25 mg BID [facility] Administration Nitroglycerin 0.4 mg 02/05/17 14:21 Nitrostat - SL Q5M PRN FOR CHEST PAIN Ondansetron HCl 4 mg 02/05/17 14:21 Zofran Injection IVPB Q6H PRN NAUSEA Ranitidine HCl 150 mg 02/05/17 22:00 02/06/17 09:36 Zantac - PO 150 mg BID [facility] Administration Ranolazine 500 mg 02/05/17 22:00 02/06/17 09:36 Ranexa - PO 500 mg BID [facility] Administration ASSESSMENT/PLAN: This is a 71 yo M with PMH of CAD, coronary PCI/stents, CHF, paroxysmal a fib on eliquis, HTN, HLD< DM, Cholelithiasis and Nephrolithiasis, who presented to ED with abd pain, diarrhea, and atypical chest pain lasting for several days Urosepsis -s/p L perc nephrostomy for obstructing stone -UA appreciated -coughlin -Urine culture : ESBL -ertapenem day 6 of 10 -hematuria resolving -h/h stable -hold eliquis, asa -POD1 s/p cystoscopy and bladder polyp biopsy -ureteral stent to be placed this noon -ID consult -Urology consult Demand ischemia -troponin trended down, can stop following -asymptomatic -NTG prn -hold asa 81 d until stent placed CAD -compensated -imdur 30 d -lopressor 25 bid -restarted losartan HTN -amlodipine 2.5 d LORY -Renal US, CT appreciated: mild/moderate hydronephrosis, obstructive stone -obstructive and cardiorenal component -nephrology consult -Strict I/O -creat baseline (1.4) A fib -hold eliquis for stent DM -sliding scale -Levemir 14 HS -BGM FEN No IVF lytes stable cardiac diet Dispo: 4s Problem List - Problems (1) Afib Code(s): I48.91 - UNSPECIFIED ATRIAL FIBRILLATION Qualifiers: Qualified Code(s): I48.0 - Paroxysmal atrial fibrillation (2) CAD (coronary artery disease) Code(s): I25.10 - ATHSCL HEART DISEASE OF [place] CORONARY ARTERY W/O ANG PCTRS Qualifiers: (3) Demand ischemia Code(s): I24.8 - OTHER FORMS OF ACUTE ISCHEMIC HEART DISEASE (4) Hydronephrosis with renal and ureteral calculous obstruction Code(s): N13.2 - HYDRONEPHROSIS WITH RENAL AND URETERAL CALCULOUS OBSTRUCTION (5) Hyperlipidemia Code(s): E78.5 - HYPERLIPIDEMIA, UNSPECIFIED Qualifiers: Qualified Code(s): E78.4 - Other hyperlipidemia (6) UTI (urinary tract infection) Code(s): N39.0 - URINARY TRACT INFECTION, SITE NOT SPECIFIED (7) Atrial fibrillation by electrocardiography Code(s): I48.91 - UNSPECIFIED ATRIAL FIBRILLATION (8) Bladder stones Code(s): N21.0 - CALCULUS IN BLADDER (9) Chest pain Code(s): R07.9 - CHEST PAIN, UNSPECIFIED Qualifiers: Qualified Code(s): R07.9 - Chest pain, unspecified (10) Cholelithiasis without obstruction Code(s): K80.20 - CALCULUS OF GALLBLADDER W/O CHOLECYSTITIS W/O OBSTRUCTION (11) Controlled diabetes mellitus with diabetic nephropathy, with long-term current use of insulin Code(s): E11.21 - TYPE 2 DIABETES MELLITUS WITH DIABETIC NEPHROPATHY Z79.4 - STORE MANAGER (CURRENT) USE OF INSULIN Qualifiers: Qualified Code(s): E11.21 - Type 2 diabetes mellitus with diabetic nephropathy; Z79.4 - prison (current) use of insulin (12) 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 Code(s): E11.9 - TYPE 2 DIABETES MELLITUS WITHOUT COMPLICATIONS Qualifiers: Qualified Code(s): E11.9 - Type 2 diabetes mellitus without complications (13) 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 due to underlying condition with hyperglycemia Code(s): E08.65 - DIABETES DUE TO UNDERLYING CONDITION W HYPERGLYCEMIA Qualifiers: Qualified Code(s): E08.65 - 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 due to underlying condition with hyperglycemia (14) Gall stone Code(s): K80.20 - CALCULUS OF GALLBLADDER W/O CHOLECYSTITIS W/O OBSTRUCTION (15) HTN (hypertension) Code(s): I10 - ESSENTIAL (PRIMARY) HYPERTENSION Qualifiers: Qualified Code(s): I10 - Essential (primary) hypertension (16) Kidney stone Code(s): N20.0 - CALCULUS OF KIDNEY (17) Paroxysmal a-fib Code(s): I48.0 - PAROXYSMAL ATRIAL FIBRILLATION (18) S/P coronary artery stent placement Code(s): Z95.5 - PRESENCE OF CORONARY ANGIOPLASTY IMPLANT AND GRAFT (19) Sepsis Code(s): A41.9 - SEPSIS, UNSPECIFIED ORGANISM Qualifiers: Qualified Code(s): A41.9 - Sepsis, unspecified organism (20) Urinary retention Code(s): R33.9 - RETENTION OF URINE, UNSPECIFIED Visit type - Emergency Visit Emergency Visit: Yes ED Registration Date: 01/31/17 Care time: The patient presented to the Emergency Department on the above date and was hospitalized for further evaluation of their emergent condition. - New Patient This patient is new to me today: No - Critical Care Critical Care patient: No - Discharge Referral Referred to [facility] No
--- NOTE | 2017-02-06 15:40 | PN ---
Teaching Attending Note Name of Resident: Lisa Gordon ATTENDING PHYSICIAN STATEMENT I saw and evaluated the patient. I reviewed the resident's note and discussed the case with the resident. I agree with the resident's findings and plan as documented. SUBJECTIVE: no fever or chills , no abd pain , no dysuria OBJECTIVE: NAD CV : RRR Lungs : CTAB ext: no edema ABd : soft , NT, ND , NL BS, L nephrostomy tube in ASSESSMENT AND PLAN: 71 y/o man with h/o HTN, P A fib, CKD , Dyastolic dysfunction , and KATJA , who presented wtih abd discomfort and was found to have uro sepsis 1- uro-sepsis : 2/2 obstruction . s/p JOSELUIS drainage on 01/31 . s/p L ureteral stent 02/06 Ucx with ESBL - cont ertapenem day 05/11 - nephrostomy tube to be calmped on Thursday then removed a week later 2- LORY on CKD , due to obstructive uropathy . - Renal function improved - Resume ARB 3-h/o P A fib : resume Eliquis 4- h/o CAD : s/p stenting : resume asa . cont other cardiac meds 5- IDDM : cont insulin ( levemir and SSI ) dispo : HLOC dc on Thursday
--- NOTE | 2017-02-06 16:43 | PN ---
Progress Note (short form) - Note Progress Note: Renal Follow up for LORY on CKD Pt seen and examined at the bedside s/p IR for Cysto and urethral stent placement no acute complaints nephrostomy and coughlin in place with yellow urine Vital Signs Temperature 98.4 F 02/06/17 10:00 Pulse Rate 68 02/06/17 14:13 Respiratory Rate 12 02/06/17 14:13 Blood Pressure 144/69 02/06/17 14:13 O2 Sat by Pulse Oximetry (%) 100 02/06/17 14:13 Intake & Output 02/03/17 02/04/17 02/05/17 02/06/17 23:59 23:59 23:59 23:59 Intake Total 350 370 900 Output Total 3350 1600 2300 1275 Balance -3000 -1230 -1400 -1275 Gen: NAD CVS: RRR, No M/R Lungs: CTA, no rales Abd: Soft NT/ND Ext: No edema, clubbing or cyanosis : Left sided nephrostomy tube in place CBC, BMP 02/06/17 05:35 02/06/17 05:35 Current Medications Amlodipine Besylate (Norvasc -) 2.5 mg PO DAILY [facility] Last Admin: 02/06/17 09:35 Dose: 2.5 mg Apixaban (Eliquis -) 5 mg PO BID [facility] Aspirin (Ecotrin -) 81 mg PO DAILY [facility] Fentanyl (Sublimaze Injection -) 25 mcg IVPUSH [id number] PRN PRN Reason: PAIN Stop: 02/08/17 13:22 IV Flush (Picc Line Flush) 8 ml IVPUSH PRN PRN PRN Reason: Protocol IV Flush (Picc Line Flush) 8 ml IVPUSH PRN PRN PRN Reason: Protocol Ertapenem 1 gm/ Sodium (Chloride) 50 mls @ 50 mls/hr IVPB DAILY [facility] PRN Reason: Protocol Last Admin: 02/06/17 11:06 Dose: 50 mls/hr Insulin Aspart (Novolog Vial Sliding Scale -) 1 vial SQ ACHS [facility] PRN Reason: Protocol Last Admin: 02/06/17 11:09 Dose: Not Given Insulin Detemir (Levemir Vial) 14 units SQ HS [facility] Last Admin: 02/05/17 21:41 Dose: Not Given Isosorbide Mononitrate (Imdur -) 30 mg PO DAILY [facility] Last Admin: 02/06/17 09:34 Dose: 30 mg Losartan Potassium (Cozaar -) 50 mg PO DAILY [facility] Last Admin: 02/06/17 09:35 Dose: 50 mg Metoprolol Tartrate (Lopressor -) 25 mg PO BID [facility] Last Admin: 02/06/17 09:35 Dose: 25 mg Nitroglycerin (Nitrostat -) 0.4 mg SL Q5M PRN PRN Reason: FOR CHEST PAIN Ondansetron HCl (Zofran Injection) 4 mg IVPB Q6H PRN PRN Reason: NAUSEA Ranitidine HCl (Zantac -) 150 mg PO BID [facility] Last Admin: 02/06/17 09:36 Dose: 150 mg Ranolazine (Ranexa -) 500 mg PO BID [facility] Last Admin: 02/06/17 09:36 Dose: 500 mg A/P This is a 71 year old Gentleman with PMhx of CKD stage 3 (B/L Cr 1.4-1.6), DM, CAD, Hx of Nephrolithiasis presented with Acute Abd pain and found to have left sided hydronephrosis with urethral stone #LORY secondary to obstruction Renal function improved and stable Cr above baseline but no acidosis, hyperkalemia, uremia trend BUN/cr s/p urthreal stent placement Nephrostomy and Coughlin management as per Urology #Complicated Urinary Tract Infection/E. coli On Ertapenum ID following Thank you Armando Sparks DO
[2017-02-06] MEDS: INSULIN DETEMIR 100 UNITS/ML MDV SQ SCH (21:07)
[2017-02-06] MEDS: APIXABAN 5 MG TABLET PO SCH (21:08)
[2017-02-07] MEDS: INSULIN SLIDING SCALE (NOVOLOG) 1 VIAL SQ SCH ×4 (06:54→20:59)
[2017-02-07 07:54] LABS: MCH 28.4 pg (25.7-33.7); MCHC 33.4 g/dl (32.0-35.9); MEAN PLT VOLUME 8.6 fl (7.5-11.1); PLATELET COUNT 441 K/MM3 (134-434); RDW 19.3 % (11.9-15.9); WHITE BLOOD COUNT 9.2 K/mm3 (4.0-10.0)
[2017-02-07 08:19] LABS: CALCIUM 8.6 mg/dL (8.5-10.1); COCKROFT - GAULT 75.79; CREATININE 1.3 mg/dL (0.7-1.3); MAGNESIUM 1.8 mg/dL (1.8-2.4); PHOSPHOROUS 2.8 mg/dL (2.5-4.9)
[2017-02-07] MEDS: ERTAPENEM SODIUM 1 GM in SODIUM CHLORIDE 50 ML IVPB SCH (10:13)
[2017-02-07] MEDS: ASPIRIN COATED 81 MG TABLET.EC PO SCH (10:14)
[2017-02-07] MEDS: ISOSORBIDE MONONITRATE 30 MG TAB.SR.24H (FP) PO SCH (10:14)
[2017-02-07] MEDS: LOSARTAN POTASSIUM 50 MG TABLET (FP) PO SCH (10:14)
[2017-02-07] MEDS: amLODIPine BESYLATE 2.5 MG TABLET (FP) PO SCH (10:14)
[2017-02-07] MEDS: APIXABAN 5 MG TABLET PO SCH ×2 (10:14→20:59)
[2017-02-07] MEDS: METOPROLOL TARTRATE 25 MG TABLET (FP) PO SCH ×2 (10:14→20:59)
[2017-02-07] MEDS: RANITIDINE HCL 150 MG TABLET (FP) PO SCH ×2 (10:14→20:59)
[2017-02-07] MEDS: RANOLAZINE E.R. 500 MG TABLET (FP) PO SCH ×2 (10:14→20:59)
--- NOTE | 2017-02-07 10:31 | PN ---
Progress Note (short form) - Note Progress Note: Renal Follow up for LORY on CKD Pt seen and examined at the bedside No complaints good urine output via Salinas and Nephrostomy denies any pain or fever Vital Signs Temperature 98 F 02/07/17 10:20 Pulse Rate 73 02/07/17 10:20 Respiratory Rate 20 02/07/17 10:20 Blood Pressure 120/58 02/07/17 10:20 O2 Sat by Pulse Oximetry (%) 100 02/06/17 14:13 Intake & Output 02/04/17 02/05/17 02/06/17 02/07/17 23:59 23:59 23:59 23:59 Intake Total 370 900 400 Output Total 1600 2300 1575 200 Balance -1230 -1400 -1175 -200 Gen: NAD CVS: RRR, No M/R Lungs: CTA, no rales Abd: Soft NT/ND Ext: No edema, clubbing or cyanosis : Left sided nephrostomy tube in place CBC, BMP 02/07/17 06:30 02/07/17 06:30 Laboratory Tests 02/07/17 06:30 Calcium 8.6 Phosphorus 2.8 Magnesium 1.8 Current Medications Amlodipine Besylate (Norvasc -) 2.5 mg PO DAILY [facility] Last Admin: 02/07/17 10:14 Dose: 2.5 mg Apixaban (Eliquis -) 5 mg PO BID [facility] Last Admin: 02/07/17 10:14 Dose: 5 mg Aspirin (Ecotrin -) 81 mg PO DAILY [facility] Last Admin: 02/07/17 10:14 Dose: 81 mg Fentanyl (Sublimaze Injection -) 25 mcg IVPUSH [id number] PRN PRN Reason: PAIN Stop: 02/08/17 13:22 IV Flush (Picc Line Flush) 8 ml IVPUSH PRN PRN PRN Reason: Protocol IV Flush (Picc Line Flush) 8 ml IVPUSH PRN PRN PRN Reason: Protocol Ertapenem 1 gm/ Sodium (Chloride) 50 mls @ 50 mls/hr IVPB DAILY [facility] PRN Reason: Protocol Last Admin: 02/07/17 10:13 Dose: 50 mls/hr Insulin Aspart (Novolog Vial Sliding Scale -) 1 vial SQ ACHS [facility] PRN Reason: Protocol Last Admin: 02/07/17 06:54 Dose: Not Given Insulin Detemir (Levemir Vial) 14 units SQ HS [facility] Last Admin: 02/06/17 21:07 Dose: 14 units Isosorbide Mononitrate (Imdur -) 30 mg PO DAILY [facility] Last Admin: 02/07/17 10:14 Dose: 30 mg Losartan Potassium (Cozaar -) 50 mg PO DAILY [facility] Last Admin: 02/07/17 10:14 Dose: 50 mg Metoprolol Tartrate (Lopressor -) 25 mg PO BID [facility] Last Admin: 02/07/17 10:14 Dose: 25 mg Nitroglycerin (Nitrostat -) 0.4 mg SL Q5M PRN PRN Reason: FOR CHEST PAIN Ondansetron HCl (Zofran Injection) 4 mg IVPB Q6H PRN PRN Reason: NAUSEA Ranitidine HCl (Zantac -) 150 mg PO BID [facility] Last Admin: 02/07/17 10:14 Dose: 150 mg Ranolazine (Ranexa -) 500 mg PO BID [facility] Last Admin: 02/07/17 10:14 Dose: 500 mg A/P This is a 71 year old Gentleman with PMhx of CKD stage 3 (B/L Cr 1.4-1.6), DM, CAD, Hx of Nephrolithiasis presented with Acute Abd pain and found to have left sided hydronephrosis with urethral stone #LORY secondary to obstruction Renal function continues to slowly improve Slainas and Nephrostomy management as per Urolgoy s/p Cysto with Stent placement #Complicated Urinary Tract Infection/E. coli On Ertapenum ID following no fevers Thank you Armando Sparks DO
--- NOTE | 2017-02-07 10:46 | PN ---
Progress Note (short form) - Note Progress Note: afebrile s/p antegrade stent placement yesterday via existing nephrostomy tract urine from NT and coughlin light brown would clamp NT today-if well tolerated (ie no pain/fever), then would d/c coughlin tomorrrow will need outpt f/u for ureteroscopy/laser lithotripsy bladder biopsy shows benign bladder polyp
--- NOTE | 2017-02-07 11:05 | PN ---
Progress Note (short form) - Note Progress Note: Subjective: no pain, no fever or chills, no SOB Objective: Vital Signs: Last Vital Signs Temp Pulse Resp BP Pulse Ox 98 F 73 20 120/58 100 02/07/17 10:20 02/07/17 10:20 02/07/17 10:20 02/07/17 10:20 02/06/17 14:13 Laboratory Results - last 24 hr 02/06/17 02/06/17 02/06/17 11:09 17:09 20:55 WBC RBC Hgb Hct MCV MCHC RDW Plt Count MPV Sodium Potassium Chloride Carbon Dioxide Anion Gap BUN Creatinine POC Glucometer 210 296 263 Random Glucose Calcium Phosphorus Magnesium 02/07/17 02/07/17 02/07/17 05:54 06:30 06:30 WBC 9.2 RBC 3.74 L Hgb 10.6 L Hct 31.8 L MCV 85.0 MCHC 33.4 RDW 19.3 H Plt Count 441 H MPV 8.6 Sodium 138 Potassium 4.1 Chloride 100 Carbon Dioxide 29 Anion Gap 9 BUN 21 H Creatinine 1.3 POC Glucometer 169 Random Glucose 153 H Calcium 8.6 Phosphorus 2.8 Magnesium 1.8 Current Medications Generic Name Dose Route Start Last Admin Trade Name Freq PRN Reason Stop Dose Admin Amlodipine Besylate 2.5 mg 02/06/17 10:00 02/07/17 10:14 Norvasc - PO 2.5 mg DAILY LONNIE Administration Apixaban 5 mg 02/06/17 22:00 02/07/17 10:14 Eliquis - PO 5 mg BID LONNIE Administration Aspirin 81 mg 02/07/17 10:00 02/07/17 10:14 Ecotrin - PO 81 mg DAILY LONNIE Administration Fentanyl 25 mcg 02/05/17 13:21 Sublimaze Injection - IVPUSH 02/08/17 13:22 [id number] PRN PAIN IV Flush 8 ml 02/06/17 13:30 Picc Line Flush IVPUSH PRN PRN Protocol IV Flush 8 ml 02/06/17 15:34 Picc Line Flush IVPUSH PRN PRN Protocol Ertapenem 1 gm/ Sodium 50 mls @ 50 mls/hr 02/06/17 10:00 02/07/17 10:13 Chloride IVPB 50 mls/hr DAILY LONINE Administration Protocol Insulin Aspart 1 vial 04/06/17 16:30 02/07/17 06:54 Novolog Vial Sliding Scale - SQ Not Given ACHS [facility] Protocol Insulin Detemir 14 units 02/05/17 22:00 02/06/17 21:07 Levemir Vial SQ 14 units HS LONNIE Administration Isosorbide Mononitrate 30 mg 02/06/17 10:00 02/07/17 10:14 Imdur - PO 30 mg DAILY LONNIE Administration Losartan Potassium 50 mg 02/06/17 10:00 02/07/17 10:14 Cozaar - PO 50 mg DAILY LONNIE Administration Metoprolol Tartrate 25 mg 02/05/17 22:00 02/07/17 10:14 Lopressor - PO 25 mg BID LONNIE Administration Nitroglycerin 0.4 mg 02/05/17 14:21 Nitrostat - SL Q5M PRN FOR CHEST PAIN Ondansetron HCl 4 mg 02/05/17 14:21 Zofran Injection IVPB Q6H PRN NAUSEA Ranitidine HCl 150 mg 02/05/17 22:00 02/07/17 10:14 Zantac - PO 150 mg BID LONNIE Administration Ranolazine 500 mg 02/05/17 22:00 02/07/17 10:14 Ranexa - PO 500 mg BID LONNIE Administration Physical Exam: NAD CV : RRR Lungs : CTAB ext: no edema ABd : soft , TTP in LLQ, ND , NL BS, L nephrostomy tube in coughlin with dark urine ASSESSMENT AND PLAN: 71 y/o man with h/o HTN, P A fib, CKD , Dyastolic dysfunction , and KATJA , who presented wtih abd discomfort and was found to have uro sepsis 1- uro-sepsis : 2/2 obstruction . s/p JOSELUIS drainage on 01/31 . s/p L ureteral stent 02/06 Ucx with ESBL - cont ertapenem day 06/11 - D/W Dr. Edmondson ,nephrostomy tube to be calmped today, to remove coughlin if tolerated 2- LORY on CKD , due to obstructive uropathy . - Renal function improved further after stent placement 3-h/o P A fib : Eliquis . BB 4- h/o CAD : s/p stenting : asa . cont other cardiac meds 5- IDDM : cont insulin ( levemir and SSI ) Dispo : HLOC possible dc on Thursday Visit type - Emergency Visit Emergency Visit: Yes ED Registration Date: 01/31/17 Care time: The patient presented to the Emergency Department on the above date and was hospitalized for further evaluation of their emergent condition. - New Patient This patient is new to me today: No - Critical Care Critical Care patient: No
[2017-02-07] MEDS ORDERED: INSULIN (NOVOLOG) ASPART 100 UNITS/ML 10ML VIAL ONE ×2 (17:24→20:56)
--- NOTE | 2017-02-07 17:49 | PN ---
Progress Note (short form) - Note Progress Note: Anesthesiology Post-op POD#2 s/p TURP under spinal anesthesia. Pt. is comfortable, with no residual effects of spinal. Pain well-managed, VSS.
--- NOTE | 2017-02-07 18:16 | PN ---
Progress Note, Physician History of Present Illness: POD#1 post left antegrade ureteral stent placement via existing nephrostomy tract, denies chest pain or dyspnea. - Current Medication List Current Medications: Active Medications Amlodipine Besylate (Norvasc -) 2.5 mg PO DAILY [facility] Last Admin: 02/07/17 10:14 Dose: 2.5 mg Apixaban (Eliquis -) 5 mg PO BID [facility] Last Admin: 02/07/17 10:14 Dose: 5 mg Aspirin (Ecotrin -) 81 mg PO DAILY [facility] Last Admin: 02/07/17 10:14 Dose: 81 mg Fentanyl (Sublimaze Injection -) 25 mcg IVPUSH [id number] PRN PRN Reason: PAIN Stop: 02/08/17 13:22 IV Flush (Picc Line Flush) 8 ml IVPUSH PRN PRN PRN Reason: Protocol IV Flush (Picc Line Flush) 8 ml IVPUSH PRN PRN PRN Reason: Protocol Ertapenem 1 gm/ Sodium (Chloride) 50 mls @ 50 mls/hr IVPB DAILY [facility] PRN Reason: Protocol Last Admin: 02/07/17 10:13 Dose: 50 mls/hr Insulin Aspart (Novolog Vial Sliding Scale -) 1 vial SQ ACHS [facility] PRN Reason: Protocol Last Admin: 02/07/17 17:31 Dose: 6 units Insulin Detemir (Levemir Vial) 14 units SQ HS [facility] Last Admin: 02/06/17 21:07 Dose: 14 units Isosorbide Mononitrate (Imdur -) 30 mg PO DAILY [facility] Last Admin: 02/07/17 10:14 Dose: 30 mg Losartan Potassium (Cozaar -) 50 mg PO DAILY [facility] Last Admin: 02/07/17 10:14 Dose: 50 mg Metoprolol Tartrate (Lopressor -) 25 mg PO BID [facility] Last Admin: 02/07/17 10:14 Dose: 25 mg Nitroglycerin (Nitrostat -) 0.4 mg SL Q5M PRN PRN Reason: FOR CHEST PAIN Ondansetron HCl (Zofran Injection) 4 mg IVPB Q6H PRN PRN Reason: NAUSEA Ranitidine HCl (Zantac -) 150 mg PO BID [facility] Last Admin: 02/07/17 10:14 Dose: 150 mg Ranolazine (Ranexa -) 500 mg PO BID [facility] Last Admin: 02/07/17 10:14 Dose: 500 mg - Objective Vital Signs: Vital Signs Temperature 98.5 F 02/07/17 14:00 Pulse Rate 64 02/07/17 14:00 Respiratory Rate 20 02/07/17 14:00 Blood Pressure 111/52 02/07/17 14:00 O2 Sat by Pulse Oximetry (%) 100 02/06/17 14:13 Constitutional: Yes: No Distress, Calm Neck: Yes: Supple Cardiovascular: Yes: Regular Rate and Rhythm Respiratory: Yes: Regular, Diminished Gastrointestinal: Yes: Normal Bowel Sounds, Soft Genitourinary: Yes: Hematuria Edema: No Labs: CBC, BMP 02/07/17 06:30 02/07/17 06:30 INR, PTT INR 1.79 (0.82-1.09) H D 02/01/17 05:00 Assessment/Plan 1. Obstructing left ureteral stone complicated by urosepsis, post percutaneous nephrostomy, cystoscopy and bladder biopsy, antegrade stent placement via existing nephrostomy tract 2. Chest pain syndrome in a patient with known CAD post multi-vessel PCI stent angina pectoris, with ACS - demand ischemic injury 3. Diastolic LV dysfunction with chronic class I NYHA classification LV failure , compensated 4. Paroxysmal atrial fibrillation previous history of RFA, [id number] score of 5, currently off A/C therapy with NOAC janelle-op 5. HTN 6. DM 7. Hyperlipidemia 8. History of KATJA 9. Acute on chronic kidney disease improved 10. Anemia PLAN: 1. Continue Lopressor 25 bid and Amlodipine 2.5 qd 2. Continue Losartan 50 qd as renal function has recovered 3. Continue Ranexa 500 bid and Imdur 30 qd 4. Eliquis 5 bid and ASA 81 qd resumed as post-procedure hemostasis achieved 5. Antibiotics coverage per C&S
[2017-02-07] MEDS ORDERED: PT OWN MED DRAWER 7, Y5N ONE (19:05)
[2017-02-07] MEDS: INSULIN DETEMIR 100 UNITS/ML MDV SQ SCH (21:00)
[2017-02-08] MEDS: INSULIN SLIDING SCALE (NOVOLOG) 1 VIAL SQ SCH ×4 (05:59→22:17)
[2017-02-08 09:03] LABS: EOSINOPHIL 4.5 % (0-4.5); MCH 28.6 pg (25.7-33.7); MCHC 33.7 g/dl (32.0-35.9); MEAN CELL VOLUME 84.8 fl (80-96); PLATELET COUNT 533 K/MM3 (134-434); RDW 19.2 % (11.9-15.9); WHITE BLOOD COUNT 9.9 K/mm3 (4.0-10.0)
--- NOTE | 2017-02-08 09:52 | PN ---
Progress Note (short form) - Note Progress Note: afebrile NT clamped yesterday small amount of urine drainage from NT site urine from coughlin light brown cont NT clamped-leakage arount NT should dry up/diminish over the next 24-48hrs would wait to d/c coughlin until NT site dry will need outpt f/u for ureteroscopy/laser lithotripsy
[2017-02-08 10:19] LABS: COCKROFT - GAULT 61.58; CREATININE 1.6 mg/dL (0.7-1.3)
[2017-02-08] MEDS ORDERED: PT OWN MED DRAWER 7, Y5N ONE (10:53)
[2017-02-08] MEDS: RANITIDINE HCL 150 MG TABLET (FP) PO SCH ×2 (10:57→22:21)
[2017-02-08] MEDS: APIXABAN 5 MG TABLET PO SCH ×2 (10:57→22:21)
[2017-02-08] MEDS: ERTAPENEM SODIUM 1 GM in SODIUM CHLORIDE 50 ML IVPB SCH (10:57)
[2017-02-08] MEDS: LOSARTAN POTASSIUM 50 MG TABLET (FP) PO SCH (10:57)
[2017-02-08] MEDS: METOPROLOL TARTRATE 25 MG TABLET (FP) PO SCH ×2 (10:57→22:21)
[2017-02-08] MEDS: RANOLAZINE E.R. 500 MG TABLET (FP) PO SCH ×2 (10:57→22:21)
[2017-02-08] MEDS: amLODIPine BESYLATE 2.5 MG TABLET (FP) PO SCH (10:57)
[2017-02-08] MEDS: ASPIRIN COATED 81 MG TABLET.EC PO SCH (10:57)
[2017-02-08] MEDS: ISOSORBIDE MONONITRATE 30 MG TAB.SR.24H (FP) PO SCH (10:57)
--- NOTE | 2017-02-08 11:06 | PN ---
Progress Note, Physician History of Present Illness: POD#2 post left antegrade ureteral stent placement via existing nephrostomy tract, denies chest pain or dyspnea, remains afebrile. - Current Medication List Current Medications: Active Medications Amlodipine Besylate (Norvasc -) 2.5 mg PO DAILY [facility] Last Admin: 02/08/17 10:57 Dose: 2.5 mg Apixaban (Eliquis -) 5 mg PO BID [facility] Last Admin: 02/08/17 10:57 Dose: 5 mg Aspirin (Ecotrin -) 81 mg PO DAILY [facility] Last Admin: 02/08/17 10:57 Dose: 81 mg Fentanyl (Sublimaze Injection -) 25 mcg IVPUSH [id number] PRN PRN Reason: PAIN Stop: 02/08/17 13:22 IV Flush (Picc Line Flush) 8 ml IVPUSH PRN PRN PRN Reason: Protocol IV Flush (Picc Line Flush) 8 ml IVPUSH PRN PRN PRN Reason: Protocol Ertapenem 1 gm/ Sodium (Chloride) 50 mls @ 50 mls/hr IVPB DAILY LONNIE PRN Reason: Protocol Last Admin: 02/08/17 10:57 Dose: 50 mls/hr Insulin Aspart (Novolog Vial Sliding Scale -) 1 vial SQ ACHS [facility] PRN Reason: Protocol Last Admin: 02/08/17 05:59 Dose: Not Given Insulin Detemir (Levemir Vial) 14 units SQ HS [facility] Last Admin: 02/07/17 21:00 Dose: 14 units Isosorbide Mononitrate (Imdur -) 30 mg PO DAILY [facility] Last Admin: 02/08/17 10:57 Dose: 30 mg Losartan Potassium (Cozaar -) 50 mg PO DAILY [facility] Last Admin: 02/08/17 10:57 Dose: 50 mg Metoprolol Tartrate (Lopressor -) 25 mg PO BID [facility] Last Admin: 02/08/17 10:57 Dose: 25 mg Nitroglycerin (Nitrostat -) 0.4 mg SL Q5M PRN PRN Reason: FOR CHEST PAIN Ondansetron HCl (Zofran Injection) 4 mg IVPB Q6H PRN PRN Reason: NAUSEA Ranitidine HCl (Zantac -) 150 mg PO BID [facility] Last Admin: 02/08/17 10:57 Dose: 150 mg Ranolazine (Ranexa -) 500 mg PO BID [facility] Last Admin: 02/08/17 10:57 Dose: 500 mg - Objective Vital Signs: Vital Signs Temperature 97.6 F 02/08/17 06:00 Pulse Rate 68 02/08/17 06:00 Respiratory Rate 20 02/08/17 06:00 Blood Pressure 114/57 02/08/17 06:00 O2 Sat by Pulse Oximetry (%) 95 02/07/17 21:00 Constitutional: Yes: No Distress, Calm Neck: Yes: Supple Cardiovascular: Yes: Regular Rate and Rhythm Respiratory: Yes: Regular, Diminished Gastrointestinal: Yes: Normal Bowel Sounds, Soft, Abdomen, Obese Genitourinary: Yes: [place] Present, Other (Left nephrostomy tube clamped) Edema: No Labs: CBC, BMP 02/08/17 08:15 02/08/17 08:15 INR, PTT INR 1.79 (0.82-1.09) H D 02/01/17 05:00 - ....Imaging EKG: Report Reviewed (SR) Assessment/Plan 1. Obstructing left ureteral stone complicated by urosepsis, post percutaneous nephrostomy, cystoscopy and bladder biopsy, antegrade stent placement via existing nephrostomy tract 2. Chest pain syndrome in a patient with known CAD post multi-vessel PCI stent angina pectoris, with ACS - demand ischemic injury 3. Diastolic LV dysfunction with chronic class I NYHA classification LV failure , compensated 4. Paroxysmal atrial fibrillation previous history of RFA, [id number] score of 5, currently off A/C therapy with NOAC janelle-op 5. HTN 6. DM 7. Hyperlipidemia 8. History of KATJA 9. Acute on chronic kidney disease improved 10. Anemia PLAN: 1. Continue Lopressor 25 bid and Amlodipine 2.5 qd 2. Continue Losartan 50 qd as renal function has recovered 3. Continue Ranexa 500 bid and Imdur 30 qd 4. Eliquis 5 bid and ASA 81 qd resumed as post-procedure hemostasis achieved 5. Antibiotics coverage per C&S, nephrostomy tube management per urology
[2017-02-08] MEDS: INSULIN DETEMIR 100 UNITS/ML MDV SQ SCH (22:21)
[2017-02-09] MEDS: INSULIN SLIDING SCALE (NOVOLOG) 1 VIAL SQ SCH ×4 (06:01→23:20)
[2017-02-09 07:17] LABS: BASOPHIL 0.7 % (0-2.0); EOSINOPHIL 4.1 % (0-4.5); MCH 28.3 pg (25.7-33.7); MCHC 33.2 g/dl (32.0-35.9); MEAN CELL VOLUME 85.5 fl (80-96); NEUTROPHILS 54.9 % (42.8-82.8); PLATELET COUNT 569 K/MM3 (134-434); RDW 19.4 % (11.9-15.9); WHITE BLOOD COUNT 8.4 K/mm3 (4.0-10.0)
[2017-02-09 07:40] LABS: CALCIUM 8.9 mg/dL (8.5-10.1); COCKROFT - GAULT 65.68; CREATININE 1.5 mg/dL (0.7-1.3)
--- NOTE | 2017-02-09 08:37 | PN ---
Progress Note (short form) - Note Progress Note: Chief Complaint: Events noted, notes reviewed, denies any chest pain or dyspnea , denies any abdominal discomfort History of Present Illness: Seen and examined in on telemetry. denies any chest pain or dyspnea, denies any abdominal discomfort. Sinus rhythm is noted Echocardiography dated 12/21/2015 normal LV size and function, with mild TR and MI MPI study 12/21/2015 revealed small-moderate size apical defect compatible with mild ischemia with preserved LV function Medications: Current Medications Amlodipine Besylate (Norvasc -) 2.5 mg PO DAILY [facility] Last Admin: 02/08/17 10:57 Dose: 2.5 mg Apixaban (Eliquis -) 5 mg PO BID [facility] Last Admin: 02/08/17 22:21 Dose: 5 mg Aspirin (Ecotrin -) 81 mg PO DAILY [facility] Last Admin: 02/08/17 10:57 Dose: 81 mg IV Flush (Picc Line Flush) 8 ml IVPUSH PRN PRN PRN Reason: Protocol IV Flush (Picc Line Flush) 8 ml IVPUSH PRN PRN PRN Reason: Protocol Ertapenem 1 gm/ Sodium (Chloride) 50 mls @ 50 mls/hr IVPB DAILY [facility] PRN Reason: Protocol Last Admin: 02/08/17 10:57 Dose: 50 mls/hr Insulin Aspart (Novolog Vial Sliding Scale -) 1 vial SQ ACHS [facility] PRN Reason: Protocol Last Admin: 02/09/17 06:01 Dose: Not Given Insulin Detemir (Levemir Vial) 14 units SQ HS [facility] Last Admin: 02/08/17 22:21 Dose: 14 units Isosorbide Mononitrate (Imdur -) 30 mg PO DAILY [facility] Last Admin: 02/08/17 10:57 Dose: 30 mg Losartan Potassium (Cozaar -) 50 mg PO DAILY [facility] Last Admin: 02/08/17 10:57 Dose: 50 mg Metoprolol Tartrate (Lopressor -) 25 mg PO BID [facility] Last Admin: 02/08/17 22:21 Dose: 25 mg Nitroglycerin (Nitrostat -) 0.4 mg SL Q5M PRN PRN Reason: FOR CHEST PAIN Ondansetron HCl (Zofran Injection) 4 mg IVPB Q6H PRN PRN Reason: NAUSEA Ranitidine HCl (Zantac -) 150 mg PO BID [facility] Last Admin: 02/08/17 22:21 Dose: 150 mg Ranolazine (Ranexa -) 500 mg PO BID [facility] Last Admin: 02/08/17 22:21 Dose: 500 mg Review of Systems Cardiovascular: As noted above Respiratory: denies: denies: Cough or Sputum Production Gastrointestinal: denies: Nausea, Vomiting, Diarrhea, Constipation or Abdominal Discomfort Musculoskeletal: No Symptoms Reported Endocrine: No Symptoms Reported Vital Signs: Last Vital Signs Temp Pulse Resp BP Pulse Ox 97.4 F L 70 20 121/58 95 02/09/17 06:00 02/09/17 06:00 02/09/17 06:00 02/09/17 06:00 02/08/17 20:49 Constitutional: No Distress, Calm Neck: Supple Negative JVD Respiratory: Diminished Breath Sounds at the bases Cardiovascular: S1 S2 Regular rate Rhythm Grade 1/6 SM Gastrointestinal: Soft Benign Normal Bowel Sounds Ext: No Edema Labs: CBC, BMP 02/09/17 05:40 02/09/17 05:40 INR, PTT INR 1.79 (0.82-1.09) H D 02/01/17 05:00 Assessment/Plan ASSESSMENT: 1. Obstructing left ureteral stone complicated by uro-sepsis, post percutaneous nephrostomy 2. CAD post multi-vessel PCI stent angina pectoris, ACS/demand ischemic injury, stable on medical therapy 3. Diastolic LV dysfunction with chronic class I NYHA classification LV failure , compensated 4. Paroxysmal atrial fibrillation previous history of RFA, [id number] score of 5, currently on A/C therapy NOAC's/Eliquis 5. HTN 6. DM 7. Hyperlipidemia 8. History of KATJA 9. Acute on chronic kidney disease 10. Anemia PLAN: 1. Continue Lopressor, hemodynamics permitting 2. Continue Amlodipine, hemodynamics permitting 3. Continue Losartan with close monitoring of renal function, hemodynamics permitting 4. Continue Imdur, hemodynamics permitting 5. Continue Ranexa 6. Continue Eliquis and ASA with close monitoring of CBC maintaining Hg equal or > 8.0, if future procedures are planned Eliquis therapy need to be withheld 6. Antibiotics as per the primary team martin Tapia M.D.
[2017-02-09] MEDS: amLODIPine BESYLATE 2.5 MG TABLET (FP) PO SCH (10:53)
[2017-02-09] MEDS: ASPIRIN COATED 81 MG TABLET.EC PO SCH (10:54)
[2017-02-09] MEDS: APIXABAN 5 MG TABLET PO SCH ×2 (10:54→23:16)
[2017-02-09] MEDS: ISOSORBIDE MONONITRATE 30 MG TAB.SR.24H (FP) PO SCH (10:54)
[2017-02-09] MEDS: LOSARTAN POTASSIUM 50 MG TABLET (FP) PO SCH (10:54)
[2017-02-09] MEDS: ERTAPENEM SODIUM 1 GM in SODIUM CHLORIDE 50 ML IVPB SCH (10:54)
[2017-02-09] MEDS: RANOLAZINE E.R. 500 MG TABLET (FP) PO SCH ×2 (10:54→23:16)
[2017-02-09] MEDS: RANITIDINE HCL 150 MG TABLET (FP) PO SCH ×2 (10:54→23:16)
[2017-02-09] MEDS: METOPROLOL TARTRATE 25 MG TABLET (FP) PO SCH ×2 (10:54→23:16)
--- NOTE | 2017-02-09 11:34 | PN ---
Progress Note (short form) - Note Progress Note: Renal Follow up for LORY on CKD Pt seen and examined at the bedside no acute complaints NT clamped off has some drainage at the site Vital Signs Temperature 98.7 F 02/09/17 11:00 Pulse Rate 78 02/09/17 11:00 Respiratory Rate 20 02/09/17 11:00 Blood Pressure 128/59 02/09/17 11:00 O2 Sat by Pulse Oximetry (%) 95 02/08/17 20:49 Intake & Output 02/06/17 02/07/17 02/08/17 02/09/17 23:59 23:59 23:59 23:59 Intake Total 400 100 400 Output Total 1575 450 950 400 Balance -1175 -350 -550 -400 Gen: NAD CVS: RRR, No M/R Lungs: CTA, no rales Abd: Soft NT/ND Ext: No edema, clubbing or cyanosis : Left sided nephrostomy tube in place CBC, BMP 02/09/17 05:40 02/09/17 05:40 Laboratory Tests 02/09/17 02/09/17 05:40 05:40 MCV 85.5 Calcium 8.9 Current Medications Amlodipine Besylate (Norvasc -) 2.5 mg PO DAILY [facility] Last Admin: 02/09/17 10:53 Dose: 2.5 mg Apixaban (Eliquis -) 5 mg PO BID [facility] Last Admin: 02/09/17 10:54 Dose: 5 mg Aspirin (Ecotrin -) 81 mg PO DAILY [facility] Last Admin: 02/09/17 10:54 Dose: 81 mg IV Flush (Picc Line Flush) 8 ml IVPUSH PRN PRN PRN Reason: Protocol IV Flush (Picc Line Flush) 8 ml IVPUSH PRN PRN PRN Reason: Protocol Ertapenem 1 gm/ Sodium (Chloride) 50 mls @ 50 mls/hr IVPB DAILY [facility] PRN Reason: Protocol Last Admin: 02/09/17 10:54 Dose: 50 mls/hr Insulin Aspart (Novolog Vial Sliding Scale -) 1 vial SQ ACHS [facility] PRN Reason: Protocol Last Admin: 02/09/17 06:01 Dose: Not Given Insulin Detemir (Levemir Vial) 14 units SQ HS [facility] Last Admin: 02/08/17 22:21 Dose: 14 units Isosorbide Mononitrate (Imdur -) 30 mg PO DAILY [facility] Last Admin: 02/09/17 10:54 Dose: 30 mg Losartan Potassium (Cozaar -) 50 mg PO DAILY [facility] Last Admin: 02/09/17 10:54 Dose: 50 mg Metoprolol Tartrate (Lopressor -) 25 mg PO BID [facility] Last Admin: 02/09/17 10:54 Dose: 25 mg Nitroglycerin (Nitrostat -) 0.4 mg SL Q5M PRN PRN Reason: FOR CHEST PAIN Ondansetron HCl (Zofran Injection) 4 mg IVPB Q6H PRN PRN Reason: NAUSEA Ranitidine HCl (Zantac -) 150 mg PO BID [facility] Last Admin: 02/09/17 10:54 Dose: 150 mg Ranolazine (Ranexa -) 500 mg PO BID [facility] Last Admin: 02/09/17 10:54 Dose: 500 mg A/P This is a 71 year old Gentleman with PMhx of CKD stage 3 (B/L Cr 1.4-1.6), DM, CAD, Hx of Nephrolithiasis presented with Acute Abd pain and found to have left sided hydronephrosis with urethral stone #LORY secondary to obstruction Renal function now stable, but not at baseline good urine output via coughlin NT clamped off, may need further imaging Urology follow up Trend BUN/Cr #Complicated Urinary Tract Infection/E. coli On Ertapenum ID following no fevers Thank you Armando Sparks DO
--- NOTE | 2017-02-09 14:35 | PN ---
Teaching Attending Note Name of Resident: Lisa Gordon ATTENDING PHYSICIAN STATEMENT I saw and evaluated the patient. I reviewed the resident's note and discussed the case with the resident. I agree with the resident's findings and plan as documented. SUBJECTIVE: no fever or chills, no abd pain , L NT still leaking. No fever or chills OBJECTIVE: NAD CV: RRR Lungs : CTAB ext: no edema ABd : soft , no TTP, NL BS, L nephrostomy tube in L flank with visible leakage on dressing coughlin with dark urine ASSESSMENT AND PLAN: 71 y/o man with h/o HTN, P A fib, CKD , Dyastolic dysfunction , and KATJA , who presented wtih abd discomfort and was found to have uro sepsis 1- Uro-sepsis : 2/2 obstruction . s/p JOSELUIS drainage on 01/31 . s/p L ureteral stent 02/06 cont ot have urine leakage from NT site . no fever or chills, and no leukocytosis - d/w Uro , will get nephrostogram - cont ertapenem 08/11 - cont coughlin 2- LORY on CKD , due to obstructive uropathy . - stable renal function - cont to monitor 3-H/o P A fib : stable Eliquis . BB 4- H/o CAD : s/p stenting : asa . cont other cardiac meds 5- IDDM : cont insulin Dispo : HLOC \ depending on results of imaging, and further uro procedures, might be able to dc tomorrow
--- NOTE | 2017-02-09 17:33 | PN ---
Physical Exam: SUBJECTIVE: Patient seen and examined Patient resting in bed. Afebrile, hemodynamically stable. No acute events. POD3 s/p ureteral stent. Nephrostomy tube clamped on sat, was leaking a lot initially and still leaking a little. Urology contacted. Patient feels well. Blown urine in coughlin. Deneis chest pain, sob, h/a, abd pain, n/v, diarrhea. OBJECTIVE: Vital Signs Period Temp Pulse Resp BP Sys/Crawford Pulse Ox Last 24 Hr 97.2 F-98.7 F 63-92 16-20 106-131/45-64 95 GENERAL: The patient is awake, alert, and fully oriented, in no acute distress. HEAD: Normal with no signs of trauma. EYES: PERRL, extraocular movements intact, sclera anicteric, conjunctiva clear. No ptosis. ENT: moist mucous membranes. NECK: supple, no jvd. LUNGS: Breath sounds equal, clear to auscultation bilaterally, bibasilar crackles HEART: Regular rate and rhythm, S1, S2 ABDOMEN: Soft, nontender, nondistended, normoactive bowel sounds. L nephrostomy tube in place, dressing moderately soaked in urine EXTREMITIES: 2+ pulses, warm, well-perfused, no edema. NEUROLOGICAL: Cranial nerves II through XII grossly intact. Normal speech, gait not observed. PSYCH: Normal mood, normal affect. SKIN: Warm, dry Laboratory Results - last 24 hr 02/08/17 02/08/17 02/09/17 17:51 20:58 05:31 WBC RBC Hgb Hct MCV MCHC RDW Plt Count MPV Neutrophils % Lymphocytes % Monocytes % Eosinophils % Basophils % Sodium Potassium Chloride Carbon Dioxide Anion Gap BUN Creatinine POC Glucometer 277 194 142 Random Glucose Calcium 02/09/17 02/09/17 02/09/17 05:40 05:40 11:40 WBC 8.4 RBC 3.53 L Hgb 10.0 L Hct 30.2 L MCV 85.5 MCHC 33.2 RDW 19.4 H Plt Count 569 H MPV 8.0 Neutrophils % 54.9 Lymphocytes % 34.1 Monocytes % 6.2 Eosinophils % 4.1 Basophils % 0.7 Sodium 140 Potassium 4.3 Chloride 102 Carbon Dioxide 27 Anion Gap 11 BUN 25 H Creatinine 1.5 H POC Glucometer 202 Random Glucose 135 H Calcium 8.9 Active Medications Generic Name Dose Route Start Last Admin Trade Name Freq PRN Reason Stop Dose Admin Amlodipine Besylate 2.5 mg 02/06/17 10:00 02/09/17 10:53 Norvasc - PO 2.5 mg DAILY LONNIE Administration Apixaban 5 mg 02/06/17 22:00 02/09/17 10:54 Eliquis - PO 5 mg BID LONNIE Administration Aspirin 81 mg 02/07/17 10:00 02/09/17 10:54 Ecotrin - PO 81 mg DAILY LONNIE Administration IV Flush 8 ml 02/06/17 13:30 Picc Line Flush IVPUSH PRN PRN Protocol IV Flush 8 ml 02/06/17 15:34 Picc Line Flush IVPUSH PRN PRN Protocol Ertapenem 1 gm/ Sodium 50 mls @ 50 mls/hr 02/06/17 10:00 02/09/17 10:54 Chloride IVPB 50 mls/hr DAILY LONNIE Administration Protocol Insulin Aspart 1 vial 02/05/17 16:30 02/09/17 11:49 Novolog Vial Sliding Scale - SQ 2 units ACHS LONNIE Administration Protocol Insulin Detemir 14 units 02/05/17 22:00 02/08/17 22:21 Levemir Vial SQ 14 units HS LONNIE Administration Isosorbide Mononitrate 30 mg 02/06/17 10:00 02/09/17 10:54 Imdur - PO 30 mg DAILY LONNIE Administration Losartan Potassium 50 mg 02/06/17 10:00 02/09/17 10:54 Cozaar - PO 50 mg DAILY LONNIE Administration Metoprolol Tartrate 25 mg 02/05/17 22:00 02/09/17 10:54 Lopressor - PO 25 mg BID LONNIE Administration Nitroglycerin 0.4 mg 02/05/17 14:21 Nitrostat - SL Q5M PRN FOR CHEST PAIN Ondansetron HCl 4 mg 02/05/17 14:21 Zofran Injection IVPB Q6H PRN NAUSEA Ranitidine HCl 150 mg 02/05/17 22:00 02/09/17 10:54 Zantac - PO 150 mg BID LONNIE Administration Ranolazine 500 mg 02/05/17 22:00 02/09/17 10:54 Ranexa - PO 500 mg BID LONNIE Administration ASSESSMENT/PLAN: This is a 71 yo M with PMH of CAD, coronary PCI/stents, CHF, paroxysmal a fib on eliquis, HTN, HLD< DM, Cholelithiasis and Nephrolithiasis, who presented to ED with abd pain, diarrhea, and atypical chest pain lasting for several days ESBL Urosepsis -s/p L perc nephrostomy for obstructing stone -POD3 s/p ureteral stent -nephrostomy tube clamped Sat, still leaking -Dr Carrillo contacted: ordered nephrostogram -coughlin in place until nephrostomy tube stops leaking -ertapenem day 10 but continue until obstruction is ruled out -ID consult -Urology consult Nose bleed -hold pressure -rhinorocket if does not resolve -monitor h/h CAD -compensated -imdur 30 d -lopressor 25 bid -losartan -asa 81 A fib -eliquis HTN -amlodipine 2.5 d LORY -resolved -creat baseline (1.5) DM -sliding scale -Levemir 14 HS -BGM FEN No IVF lytes stable cardiac diet Dispo: 4s Problem List - Problems (1) Afib Code(s): I48.91 - UNSPECIFIED ATRIAL FIBRILLATION Qualifiers: Qualified Code(s): I48.0 - Paroxysmal atrial fibrillation (2) CAD (coronary artery disease) Code(s): I25.10 - ATHSCL HEART DISEASE OF [place] CORONARY ARTERY W/O ANG PCTRS Qualifiers: (3) Demand ischemia Code(s): I24.8 - OTHER FORMS OF ACUTE ISCHEMIC HEART DISEASE (4) Hydronephrosis with renal and ureteral calculous obstruction Code(s): N13.2 - HYDRONEPHROSIS WITH RENAL AND URETERAL CALCULOUS OBSTRUCTION (5) Hyperlipidemia Code(s): E78.5 - HYPERLIPIDEMIA, UNSPECIFIED Qualifiers: Qualified Code(s): E78.4 - Other hyperlipidemia (6) UTI (urinary tract infection) Code(s): N39.0 - URINARY TRACT INFECTION, SITE NOT SPECIFIED (7) Atrial fibrillation by electrocardiography Code(s): I48.91 - UNSPECIFIED ATRIAL FIBRILLATION (8) Bladder stones Code(s): N21.0 - CALCULUS IN BLADDER (9) Chest pain Code(s): R07.9 - CHEST PAIN, UNSPECIFIED Qualifiers: Qualified Code(s): R07.9 - Chest pain, unspecified (10) Cholelithiasis without obstruction Code(s): K80.20 - CALCULUS OF GALLBLADDER W/O CHOLECYSTITIS W/O OBSTRUCTION (11) Controlled diabetes mellitus with diabetic nephropathy, with long-term current use of insulin Code(s): E11.21 - TYPE 2 DIABETES MELLITUS WITH DIABETIC NEPHROPATHY Z79.4 - [employer] (CURRENT) USE OF INSULIN Qualifiers: Qualified Code(s): E11.21 - Type 2 diabetes mellitus with diabetic nephropathy; Z79.4 - nursing home (current) use of insulin (12) 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 Code(s): E11.9 - TYPE 2 DIABETES MELLITUS WITHOUT COMPLICATIONS Qualifiers: Qualified Code(s): E11.9 - Type 2 diabetes mellitus without complications (13) 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 due to underlying condition with hyperglycemia Code(s): E08.65 - DIABETES DUE TO UNDERLYING CONDITION W HYPERGLYCEMIA Qualifiers: Qualified Code(s): E08.65 - 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 due to underlying condition with hyperglycemia (14) Gall stone Code(s): K80.20 - CALCULUS OF GALLBLADDER W/O CHOLECYSTITIS W/O OBSTRUCTION (15) HTN (hypertension) Code(s): I10 - ESSENTIAL (PRIMARY) HYPERTENSION Qualifiers: Qualified Code(s): I10 - Essential (primary) hypertension (16) Kidney stone Code(s): N20.0 - CALCULUS OF KIDNEY (17) Paroxysmal a-fib Code(s): I48.0 - PAROXYSMAL ATRIAL FIBRILLATION (18) S/P coronary artery stent placement Code(s): Z95.5 - PRESENCE OF CORONARY ANGIOPLASTY IMPLANT AND GRAFT (19) Sepsis Code(s): A41.9 - SEPSIS, UNSPECIFIED ORGANISM Qualifiers: Qualified Code(s): A41.9 - Sepsis, unspecified organism (20) Urinary retention Code(s): R33.9 - RETENTION OF URINE, UNSPECIFIED Visit type - Emergency Visit Emergency Visit: Yes ED Registration Date: 01/31/17 Care time: The patient presented to the Emergency Department on the above date and was hospitalized for further evaluation of their emergent condition. - New Patient This patient is new to me today: No - Critical Care Critical Care patient: No - Discharge Referral Referred to [facility] No
[2017-02-09] MEDS: INSULIN DETEMIR 100 UNITS/ML MDV SQ SCH (23:19)
[2017-02-10] MEDS: INSULIN SLIDING SCALE (NOVOLOG) 1 VIAL SQ SCH ×4 (06:52→21:49)
[2017-02-10] MEDS ORDERED: INSULIN (NOVOLOG) ASPART 100 UNITS/ML 10ML VIAL ONE (06:53)
[2017-02-10 07:12] LABS: MCH 27.9 pg (25.7-33.7); MCHC 32.7 g/dl (32.0-35.9); MEAN CELL VOLUME 85.4 fl (80-96); PLATELET COUNT 542 K/MM3 (134-434); RDW 19.3 % (11.9-15.9); WHITE BLOOD COUNT 8.1 K/mm3 (4.0-10.0)
[2017-02-10 07:27] LABS: CALCIUM 8.8 mg/dL (8.5-10.1); COCKROFT - GAULT 72.35; CREATININE 1.3 mg/dL (0.7-1.3)
--- NOTE | 2017-02-10 09:17 | PN ---
Progress Note, Physician History of Present Illness: POD#4 post left antegrade ureteral stent placement via existing nephrostomy tract, denies chest pain or dyspnea, remains afebrile. Episode of right epistaxis since resolved. - Current Medication List Current Medications: Active Medications Amlodipine Besylate (Norvasc -) 2.5 mg PO DAILY [facility] Last Admin: 02/09/17 10:53 Dose: 2.5 mg Apixaban (Eliquis -) 5 mg PO BID [facility] Last Admin: 02/09/17 23:16 Dose: 5 mg Aspirin (Ecotrin -) 81 mg PO DAILY [facility] Last Admin: 02/09/17 10:54 Dose: 81 mg IV Flush (Picc Line Flush) 8 ml IVPUSH PRN PRN PRN Reason: Protocol IV Flush (Picc Line Flush) 8 ml IVPUSH PRN PRN PRN Reason: Protocol Insulin Aspart (Novolog Vial Sliding Scale -) 1 vial SQ ACHS [facility] PRN Reason: Protocol Last Admin: 02/10/17 06:52 Dose: Not Given Insulin Detemir (Levemir Vial) 14 units SQ HS [facility] Last Admin: 02/09/17 23:19 Dose: 14 units Isosorbide Mononitrate (Imdur -) 30 mg PO DAILY [facility] Last Admin: 02/09/17 10:54 Dose: 30 mg Losartan Potassium (Cozaar -) 50 mg PO DAILY [facility] Last Admin: 02/09/17 10:54 Dose: 50 mg Metoprolol Tartrate (Lopressor -) 25 mg PO BID [facility] Last Admin: 02/09/17 23:16 Dose: 25 mg Nitroglycerin (Nitrostat -) 0.4 mg SL Q5M PRN PRN Reason: FOR CHEST PAIN Ondansetron HCl (Zofran Injection) 4 mg IVPB Q6H PRN PRN Reason: NAUSEA Ranitidine HCl (Zantac -) 150 mg PO BID [facility] Last Admin: 02/09/17 23:16 Dose: 150 mg Ranolazine (Ranexa -) 500 mg PO BID [facility] Last Admin: 02/09/17 23:16 Dose: 500 mg - Objective Vital Signs: Vital Signs Temperature 98.9 F 02/10/17 06:01 Pulse Rate 75 02/10/17 06:01 Respiratory Rate 20 02/10/17 06:01 Blood Pressure 115/59 02/10/17 06:01 O2 Sat by Pulse Oximetry (%) 95 02/09/17 22:00 Constitutional: Yes: No Distress, Calm Neck: Yes: Supple Cardiovascular: Yes: Regular Rate and Rhythm Respiratory: Yes: Regular, Diminished Gastrointestinal: Yes: Normal Bowel Sounds, Soft Edema: No Labs: CBC, BMP 02/10/17 05:35 02/10/17 05:35 INR, PTT INR 1.79 (0.82-1.09) H D 02/01/17 05:00 Assessment/Plan Echocardiography dated 12/21/2015 normal LV size and function, with mild TR and AL MPI study 12/21/2015 revealed small-moderate size apical defect compatible with mild ischemia with preserved LV function 1. Obstructing left ureteral stone complicated by urosepsis, post percutaneous nephrostomy, cystoscopy and bladder biopsy, antegrade stent placement via existing nephrostomy tract 2. Chest pain syndrome in a patient with known CAD post multi-vessel PCI stent angina pectoris, with ACS - demand ischemic injury 3. Diastolic LV dysfunction with chronic class I NYHA classification LV failure , compensated 4. Paroxysmal atrial fibrillation previous history of RFA, [id number] score of 5, on NOAC 5. HTN 6. DM 7. Hyperlipidemia 8. History of KATJA 9. Acute on chronic kidney disease improved 10. Anemia 11. Resolved right epistaxis PLAN: 1. Continue Lopressor 25 bid and Amlodipine 2.5 qd 2. Continue Losartan 50 qd as renal function has recovered 3. Continue Ranexa 500 bid and Imdur 30 qd 4. D/c ASA, continue Eliquis 5 bid given epistaxis episode 5. Antibiotics course d/lois, nephrostomy tube management per urology
[2017-02-10] MEDS: RANOLAZINE E.R. 500 MG TABLET (FP) PO SCH ×2 (10:44→21:47)
[2017-02-10] MEDS: ISOSORBIDE MONONITRATE 30 MG TAB.SR.24H (FP) PO SCH (10:45)
[2017-02-10] MEDS: RANITIDINE HCL 150 MG TABLET (FP) PO SCH ×2 (10:45→21:47)
[2017-02-10] MEDS: APIXABAN 5 MG TABLET PO SCH ×2 (10:45→21:47)
[2017-02-10] MEDS: LOSARTAN POTASSIUM 50 MG TABLET (FP) PO SCH (10:45)
[2017-02-10] MEDS: amLODIPine BESYLATE 2.5 MG TABLET (FP) PO SCH (10:45)
[2017-02-10] MEDS: METOPROLOL TARTRATE 25 MG TABLET (FP) PO SCH ×2 (10:45→21:47)
--- NOTE | 2017-02-10 12:00 | PN ---
Progress Note (short form) - Note Progress Note: Renal Follow up for LORY on CKD Pt seen and examined at the bedside no acute complaints no sob or chest pain nephrostomy clamped coughlin with good urine output Vital Signs Temperature 97.7 F 02/10/17 10:48 Pulse Rate 70 02/10/17 10:48 Respiratory Rate 20 02/10/17 10:48 Blood Pressure 127/57 02/10/17 10:48 O2 Sat by Pulse Oximetry (%) 95 02/09/17 22:00 Intake & Output 02/07/17 02/08/17 02/09/17 02/10/17 23:59 23:59 23:59 23:59 Intake Total 124 720 3141 360 Output Total 406 385 1524 250 Balance -350 -550 -305 110 Weight 219 lb 9 oz Gen: NAD CVS: RRR, No M/R Lungs: CTA, no rales Abd: Soft NT/ND Ext: No edema, clubbing or cyanosis : Left sided nephrostomy tube in place CBC, BMP 02/10/17 05:35 02/10/17 05:35 Current Medications Amlodipine Besylate (Norvasc -) 2.5 mg PO DAILY [facility] Last Admin: 02/10/17 10:45 Dose: 2.5 mg Apixaban (Eliquis -) 5 mg PO BID [facility] Last Admin: 02/10/17 10:45 Dose: 5 mg IV Flush (Picc Line Flush) 8 ml IVPUSH PRN PRN PRN Reason: Protocol IV Flush (Picc Line Flush) 8 ml IVPUSH PRN PRN PRN Reason: Protocol Insulin Aspart (Novolog Vial Sliding Scale -) 1 vial SQ [facility] PRN Reason: Protocol Last Admin: 02/10/17 06:52 Dose: Not Given Insulin Detemir (Levemir Vial) 14 units SQ HS [facility] Last Admin: 02/09/17 23:19 Dose: 14 units Isosorbide Mononitrate (Imdur -) 30 mg PO DAILY [facility] Last Admin: 02/10/17 10:45 Dose: 30 mg Losartan Potassium (Cozaar -) 50 mg PO DAILY [facility] Last Admin: 02/10/17 10:45 Dose: 50 mg Metoprolol Tartrate (Lopressor -) 25 mg PO BID [facility] Last Admin: 02/10/17 10:45 Dose: 25 mg Nitroglycerin (Nitrostat -) 0.4 mg SL Q5M PRN PRN Reason: FOR CHEST PAIN Ondansetron HCl (Zofran Injection) 4 mg IVPB Q6H PRN PRN Reason: NAUSEA Ranitidine HCl (Zantac -) 150 mg PO BID [facility] Last Admin: 02/10/17 10:45 Dose: 150 mg Ranolazine (Ranexa -) 500 mg PO BID [facility] Last Admin: 02/10/17 10:44 Dose: 500 mg A/P This is a 71 year old Gentleman with PMhx of CKD stage 3 (B/L Cr 1.4-1.6), DM, CAD, Hx of Nephrolithiasis presented with Acute Abd pain and found to have left sided hydronephrosis with urethral stone #LORY secondary to obstruction Renal function improved restarted on Losartan For IR eval of nephrostomy tube today coughlin as per urology trend BUN/cr and electrolytes #Complicated Urinary Tract Infection/E. coli Completed course of Ertapenum ID following Thank you Armando Sparks DO
[2017-02-10] MEDS ORDERED: LORazepam 1 MG TABLET PO PRN (12:01)
--- NOTE | 2017-02-10 12:01 | PN ---
Progress Note (short form) - Note Progress Note: Renal Follow up for LORY on CKD Pt seen and examined at the bedside no acute complaints no sob or chest pain nephrostomy clamped coughlin with good urine output Vital Signs Temperature 97.7 F 02/10/17 10:48 Pulse Rate 70 02/10/17 10:48 Respiratory Rate 20 02/10/17 10:48 Blood Pressure 127/57 02/10/17 10:48 O2 Sat by Pulse Oximetry (%) 95 02/09/17 22:00 Intake & Output 02/07/17 02/08/17 02/09/17 02/10/17 23:59 23:59 23:59 23:59 Intake Total 556 152 7732 360 Output Total 084 003 2768 250 Balance -350 -550 -305 110 Weight 219 lb 9 oz Gen: NAD CVS: RRR, No M/R Lungs: CTA, no rales Abd: Soft NT/ND Ext: No edema, clubbing or cyanosis : Left sided nephrostomy tube in place CBC, BMP 02/10/17 05:35 02/10/17 05:35 Current Medications Amlodipine Besylate (Norvasc -) 2.5 mg PO DAILY [facility] Last Admin: 02/10/17 10:45 Dose: 2.5 mg Apixaban (Eliquis -) 5 mg PO BID [facility] Last Admin: 02/10/17 10:45 Dose: 5 mg IV Flush (Picc Line Flush) 8 ml IVPUSH PRN PRN PRN Reason: Protocol IV Flush (Picc Line Flush) 8 ml IVPUSH PRN PRN PRN Reason: Protocol Insulin Aspart (Novolog Vial Sliding Scale -) 1 vial SQ [facility] PRN Reason: Protocol Last Admin: 02/10/17 06:52 Dose: Not Given Insulin Detemir (Levemir Vial) 14 units SQ HS [facility] Last Admin: 02/09/17 23:19 Dose: 14 units Isosorbide Mononitrate (Imdur -) 30 mg PO DAILY [facility] Last Admin: 02/10/17 10:45 Dose: 30 mg Losartan Potassium (Cozaar -) 50 mg PO DAILY [facility] Last Admin: 02/10/17 10:45 Dose: 50 mg Metoprolol Tartrate (Lopressor -) 25 mg PO BID [facility] Last Admin: 02/10/17 10:45 Dose: 25 mg Nitroglycerin (Nitrostat -) 0.4 mg SL Q5M PRN PRN Reason: FOR CHEST PAIN Ondansetron HCl (Zofran Injection) 4 mg IVPB Q6H PRN PRN Reason: NAUSEA Ranitidine HCl (Zantac -) 150 mg PO BID [facility] Last Admin: 02/10/17 10:45 Dose: 150 mg Ranolazine (Ranexa -) 500 mg PO BID [facility] Last Admin: 02/10/17 10:44 Dose: 500 mg A/P This is a 71 year old Gentleman with PMhx of CKD stage 3 (B/L Cr 1.4-1.6), DM, CAD, Hx of Nephrolithiasis presented with Acute Abd pain and found to have left sided hydronephrosis with urethral stone #LORY secondary to obstruction Renal function improved restarted on Losartan For IR eval of nephrostomy tube today coughlin as per urology trend BUN/cr and electrolytes #Complicated Urinary Tract Infection/E. coli Completed course of Ertapenum ID following Thank you Armando Sparks DO
--- NOTE | 2017-02-10 13:13 | PN ---
Physical Exam: SUBJECTIVE: Patient seen and examined Patient resting in bed. Afebrile, hemodynamically stable. No acute events. POD3 s/p ureteral stent. Nephrostomy tube clamped on sat, was leaking a lot initially and still leaking a little. Urology contacted. Patient feels well. Blown urine in coughlin. Deneis chest pain, sob, h/a, abd pain, n/v, diarrhea. OBJECTIVE: Vital Signs Period Temp Pulse Resp BP Sys/Crawford Pulse Ox Last 24 Hr 97.7 F-99.5 F 61-75 16-20 106-137/50-86 94-95 GENERAL: The patient is awake, alert, and fully oriented, in no acute distress. HEAD: Normal with no signs of trauma. EYES: PERRL, extraocular movements intact, sclera anicteric, conjunctiva clear. No ptosis. ENT: moist mucous membranes. NECK: supple, no jvd. LUNGS: Breath sounds equal, clear to auscultation bilaterally, bibasilar crackles HEART: Regular rate and rhythm, S1, S2 ABDOMEN: Soft, nontender, nondistended, normoactive bowel sounds. L nephrostomy tube in place, dressing moderately soaked in urine EXTREMITIES: 2+ pulses, warm, well-perfused, no edema. NEUROLOGICAL: Cranial nerves II through XII grossly intact. Normal speech, gait not observed. PSYCH: Normal mood, normal affect. SKIN: Warm, dry Laboratory Results - last 24 hr 02/09/17 02/09/17 02/10/17 18:15 23:18 05:35 WBC 8.1 RBC 3.58 L Hgb 10.0 L Hct 30.6 L MCV 85.4 MCHC 32.7 RDW 19.3 H Plt Count 542 H MPV 8.0 Sodium Potassium Chloride Carbon Dioxide Anion Gap BUN Creatinine POC Glucometer 165 236 Random Glucose Calcium 02/10/17 02/10/17 02/10/17 05:35 06:49 12:48 WBC RBC Hgb Hct MCV MCHC RDW Plt Count MPV Sodium 139 Potassium 4.2 Chloride 101 Carbon Dioxide 27 Anion Gap 11 BUN 21 H Creatinine 1.3 POC Glucometer 134 208 Random Glucose 123 H Calcium 8.8 Active Medications Generic Name Dose Route Start Last Admin Trade Name Freq PRN Reason Stop Dose Admin Amlodipine Besylate 2.5 mg 02/06/17 10:00 02/10/17 10:45 Norvasc - PO 2.5 mg DAILY LONNIE Administration Apixaban 5 mg 02/06/17 22:00 02/10/17 10:45 Eliquis - PO 5 mg BID LONNIE Administration IV Flush 8 ml 02/06/17 13:30 Picc Line Flush IVPUSH PRN PRN Protocol IV Flush 8 ml 02/06/17 15:34 Picc Line Flush IVPUSH PRN PRN Protocol Insulin Aspart 1 vial 02/05/17 16:30 02/10/17 12:52 Novolog Vial Sliding Scale - SQ 2 units ACHS LONNIE Administration Protocol Insulin Detemir 14 units 02/05/17 22:00 02/09/17 23:19 Levemir Vial SQ 14 units HS LONNIE Administration Isosorbide Mononitrate 30 mg 02/06/17 10:00 02/10/17 10:45 Imdur - PO 30 mg DAILY LONNIE Administration Losartan Potassium 50 mg 02/06/17 10:00 02/10/17 10:45 Cozaar - PO 50 mg DAILY LONNIE Administration Metoprolol Tartrate 25 mg 02/05/17 22:00 02/10/17 10:45 Lopressor - PO 25 mg BID LONNIE Administration Nitroglycerin 0.4 mg 02/05/17 14:21 Nitrostat - SL Q5M PRN FOR CHEST PAIN Ondansetron HCl 4 mg 02/05/17 14:21 Zofran Injection IVPB Q6H PRN NAUSEA Ranitidine HCl 150 mg 02/05/17 22:00 02/10/17 10:45 Zantac - PO 150 mg BID LONNIE Administration Ranolazine 500 mg 02/05/17 22:00 02/10/17 10:44 Ranexa - PO 500 mg BID LONNIE Administration ASSESSMENT/PLAN: This is a 71 yo M with PMH of CAD, coronary PCI/stents, CHF, paroxysmal a fib on eliquis, HTN, HLD< DM, Cholelithiasis and Nephrolithiasis, who presented to ED with abd pain, diarrhea, and atypical chest pain lasting for several days ESBL Urosepsis -s/p L perc nephrostomy for obstructing stone -POD3 s/p ureteral stent -nephrostomy tube clamped Sat, still leaking -Dr Gerardo contacted: ordered nephrostogram -coughlin in place until nephrostomy tube stops leaking -ertapenem day 10 but continue until obstruction is ruled out -ID consult -Urology consult Nose bleed -hold pressure -rhinorocket if does not resolve -monitor h/h CAD -compensated -imdur 30 d -lopressor 25 bid -losartan -asa 81 A fib -eliquis HTN -amlodipine 2.5 d LORY -resolved -creat baseline (1.5) DM -sliding scale -Levemir 14 HS -BGM FEN No IVF lytes stable cardiac diet Dispo: 4s Problem List - Problems (1) Afib Code(s): I48.91 - UNSPECIFIED ATRIAL FIBRILLATION Qualifiers: Qualified Code(s): I48.0 - Paroxysmal atrial fibrillation (2) CAD (coronary artery disease) Code(s): I25.10 - ATHSCL HEART DISEASE OF [place] CORONARY ARTERY W/O ANG PCTRS Qualifiers: (3) Demand ischemia Code(s): I24.8 - OTHER FORMS OF ACUTE ISCHEMIC HEART DISEASE (4) Hydronephrosis with renal and ureteral calculous obstruction Code(s): N13.2 - HYDRONEPHROSIS WITH RENAL AND URETERAL CALCULOUS OBSTRUCTION (5) Hyperlipidemia Code(s): E78.5 - HYPERLIPIDEMIA, UNSPECIFIED Qualifiers: Qualified Code(s): E78.4 - Other hyperlipidemia (6) UTI (urinary tract infection) Code(s): N39.0 - URINARY TRACT INFECTION, SITE NOT SPECIFIED (7) Atrial fibrillation by electrocardiography Code(s): I48.91 - UNSPECIFIED ATRIAL FIBRILLATION (8) Bladder stones Code(s): N21.0 - CALCULUS IN BLADDER (9) Chest pain Code(s): R07.9 - CHEST PAIN, UNSPECIFIED Qualifiers: Qualified Code(s): R07.9 - Chest pain, unspecified (10) Cholelithiasis without obstruction Code(s): K80.20 - CALCULUS OF GALLBLADDER W/O CHOLECYSTITIS W/O OBSTRUCTION (11) Controlled diabetes mellitus with diabetic nephropathy, with long-term current use of insulin Code(s): E11.21 - TYPE 2 DIABETES MELLITUS WITH DIABETIC NEPHROPATHY Z79.4 - [employer]WAY (CURRENT) USE OF INSULIN Qualifiers: Qualified Code(s): E11.21 - Type 2 diabetes mellitus with diabetic nephropathy; Z79.4 - retirement (current) use of insulin (12) 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 Code(s): E11.9 - TYPE 2 DIABETES MELLITUS WITHOUT COMPLICATIONS Qualifiers: Qualified Code(s): E11.9 - Type 2 diabetes mellitus without complications (13) 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 due to underlying condition with hyperglycemia Code(s): E08.65 - DIABETES DUE TO UNDERLYING CONDITION W HYPERGLYCEMIA Qualifiers: Qualified Code(s): E08.65 - 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 due to underlying condition with hyperglycemia (14) Gall stone Code(s): K80.20 - CALCULUS OF GALLBLADDER W/O CHOLECYSTITIS W/O OBSTRUCTION (15) HTN (hypertension) Code(s): I10 - ESSENTIAL (PRIMARY) HYPERTENSION Qualifiers: Qualified Code(s): I10 - Essential (primary) hypertension (16) Kidney stone Code(s): N20.0 - CALCULUS OF KIDNEY (17) Paroxysmal a-fib Code(s): I48.0 - PAROXYSMAL ATRIAL FIBRILLATION (18) S/P coronary artery stent placement Code(s): Z95.5 - PRESENCE OF CORONARY ANGIOPLASTY IMPLANT AND GRAFT (19) Sepsis Code(s): A41.9 - SEPSIS, UNSPECIFIED ORGANISM Qualifiers: Qualified Code(s): A41.9 - Sepsis, unspecified organism (20) Urinary retention Code(s): R33.9 - RETENTION OF URINE, UNSPECIFIED
--- NOTE | 2017-02-10 14:00 | PN ---
Teaching Attending Note Name of Resident: Lisa Gordon ATTENDING PHYSICIAN STATEMENT I saw and evaluated the patient. I reviewed the resident's note and discussed the case with the resident. I agree with the resident's findings and plan as documented. SUBJECTIVE: no fever or chills, no abd pain , has BMs. had epistaxis earlier today OBJECTIVE: NAD CV: RRR Lungs : CTAB ext: no edema ABd : soft , no TTP, NL BS, L nephrostomy tube in L flank with visible leakage on dressing coughlin with dark urine ASSESSMENT AND PLAN: 71 y/o man with h/o HTN, P A fib, CKD , Dyastolic dysfunction , and KATJA , who presented wtih abd discomfort and was found to have uro sepsis 1- Uro-sepsis : 2/2 obstruction . s/p JOSELUIS drainage on 01/31 . s/p L ureteral stent 02/06 urine leakage frm NT has stopped. tube was taken out by IR this am - cont coughlin - will touch base with urology - off ABx .completed 10 days 2- LORY on CKD , due to obstructive uropathy . - stable renal function - cont to monitor 3-H/o P A fib : stable Eliquis . BB monitor for nose bleed 4- h/o CAD , s/p stenting . ASa dc 'd by card due to epistaxis . cont other cardiac meds 4- IDDM : cont insulin Dipso : will touch base with Uro, might be able to dc today
--- NOTE | 2017-02-10 15:52 | DS ---
Physical Exam: SUBJECTIVE: Patient seen and examined Patient resting in bed. Afebrile, hemodynamically stable. No acute events. POD4 s/p ureteral stent. Nephrostomy tube removed today after nephrostogram, it also was no longer leaking. Urology contacted. Patient feels well. yellow urine in coughlin. Deneis chest pain, sob, h/a, abd pain, n/v, diarrhea. OBJECTIVE: Vital Signs Period Temp Pulse Resp BP Sys/Crawford Pulse Ox Last 24 Hr 97.7 F-99.5 F 61-75 16-20 99-137/44-86 94-95 PHYSICAL EXAM GENERAL: The patient is awake, alert, and fully oriented, in no acute distress. HEAD: Normal with no signs of trauma. EYES: PERRL, extraocular movements intact, sclera anicteric, conjunctiva clear. No ptosis. ENT: moist mucous membranes. NECK: supple, no jvd. LUNGS: Breath sounds equal, clear to auscultation bilaterally, bibasilar crackles HEART: Regular rate and rhythm, S1, S2 ABDOMEN: Soft, nontender, nondistended, normoactive bowel sounds. EXTREMITIES: 2+ pulses, warm, well-perfused, no edema. NEUROLOGICAL: Cranial nerves II through XII grossly intact. Normal speech, gait not observed. PSYCH: Normal mood, normal affect. SKIN: Warm, dry LABS Laboratory Results - last 24 hr 02/09/17 02/09/17 02/10/17 18:15 23:18 05:35 WBC 8.1 RBC 3.58 L Hgb 10.0 L Hct 30.6 L MCV 85.4 MCHC 32.7 RDW 19.3 H Plt Count 542 H MPV 8.0 Sodium Potassium Chloride Carbon Dioxide Anion Gap BUN Creatinine POC Glucometer 165 236 Random Glucose Calcium 02/10/17 02/10/17 02/10/17 05:35 06:49 12:48 WBC RBC Hgb Hct MCV MCHC RDW Plt Count MPV Sodium 139 Potassium 4.2 Chloride 101 Carbon Dioxide 27 Anion Gap 11 BUN 21 H Creatinine 1.3 POC Glucometer 134 208 Random Glucose 123 H Calcium 8.8 HOSPITAL COURSE: Date of Admission:01/31/17 This is a 71 year old male that presented to the ED with complaints of progressive epigastric abdominal pain, vomiting and diarrhea. Found to have obstructive uretheral stone with hydronephrosis and LORY, as well as ESBL urosepsis. REceived nephrostomy tube while in ICU. Finished a course of IV ertapenem, had a bladder polyp biopsy (result pending) and a nephrostomy tube placed. Nephrostomy tube removed on day of d/c after nephrostogram and patient sent home on Po [id number] d, to f/u with urology in 1 week. LORY resolved, demand ischemia resolved. Also evaluated by cardiology and nephrology. There were some medication changes: Patient now on: Imdur 30 daily lopressor 25 twice a day losartan 50 daily amlodipine 2.5 daily he was advised not to take aspirin for now because of nose bleed but continue taking eliquis Date of Discharge: 02/10/17 Minutes to complete discharge: 54 (na) Discharge Summary Reason For Visit: CHEST PAIN, ISCHEMIA Current Active Problems Abdominal pain in male (Acute) Acute ischemic stroke (Acute) Afib (Acute) CAD (coronary artery disease) (Acute) Confused (Acute) Demand ischemia (Acute) Forgetfulness (Acute) Hydronephrosis with renal and ureteral calculous obstruction (Acute) Hyperlipidemia (Acute) UTI (urinary tract infection) (Acute) Condition: Good - Instructions Diet, Activity, Other Instructions: You were admitted due to a kidney stone that was blocking the passage of urine out of your left kidney and due to a severe urine infection that infected your blood as well. You has a left nephrostomy tube placed and a left ureteral stent placed. your nephrostomy tube was removed. You finished a course of IV antibiotic and require of 10 days of oral Ciprofloxacin twice a day. Please follow up with urology in 1 week. Follow up with cardiology and nephrology in 2 weeks Follow up with Dr. Loni Reyes in 2 weeks because we changed some of your blood pressure medications. You blood pressure medications: Imdur 30 daily lopressor 25 twice a day losartan 50 daily amlodipine 2.5 daily Please dont take aspirin for now because of nose bleed but continue taking eliquis Return to hospital if symptoms resume. Referrals: Daniel Edmondson MD [Staff Physician] - 1 Week Armando Sparks MD [Staff Physician] - 2 Weeks Jerry Schulz MD [Staff Physician] - 2 Weeks Loni Reyes [Non Staff, Medical] - 2 Weeks Disposition: HOME - Home Medications Comprehensive Discharge Medication List: Ambulatory Orders Tamsulosin HCl [Flomax -] 0.4 mg PO DAILY #10 capsule 06/01/16 Gemfibrozil [Lopid] 600 mg PO BID 10/14/16 Losartan Potassium [Cozaar -] 50 mg PO DAILY 10/14/16 Nitroglycerin [Nitrostat] 0.4 mg SL PRN PRN 10/14/16 Insulin (Levemir) [Levemir Vial] 14 units SQ ASDIR #0 10/24/16 Isosorbide Mononitrate [Imdur -] 30 mg PO DAILY tab.sr.24h 11/01/16 Ranolazine [Ranexa -] 500 mg PO BID tab 11/01/16 Apixaban [Eliquis -] 5 mg PO BID #30 tablet 11/20/16 Atorvastatin Ca [Lipitor] 10 mg PO HS #30 tablet 11/20/16 Cetirizine HCl [Zyrtec -] 10 mg PO DAILY #30 tablet 11/20/16 Colesevelam HCl [Welchol (Nf)] 625 mg PO BID #30 tablet 11/20/16 Ranitidine [Zantac -] 150 mg PO DAILY #20 tablet 11/20/16 Insulin Sliding Scale [Novolog Vial Sliding Scale -] 0 units SQ QID PRN Amlodipine Besylate [Norvasc -] 2.5 mg PO DAILY #30 tablet 02/10/17 Ciprofloxacin [Cipro -] 250 mg PO BID #20 tablet 02/10/17 Isosorbide Mononitrate [Imdur -] 30 mg PO DAILY #30 tab 02/10/17 Metoprolol Tartrate [Lopressor -] 25 mg PO BID #60 tablet 02/10/17 Problem List - Problems (1) Afib Code(s): I48.91 - UNSPECIFIED ATRIAL FIBRILLATION Qualifiers: Qualified Code(s): I48.0 - Paroxysmal atrial fibrillation (2) CAD (coronary artery disease) Code(s): I25.10 - ATHSCL HEART DISEASE OF [place] CORONARY ARTERY W/O ANG PCTRS Qualifiers: (3) Demand ischemia Code(s): I24.8 - OTHER FORMS OF ACUTE ISCHEMIC HEART DISEASE (4) Hydronephrosis with renal and ureteral calculous obstruction Code(s): N13.2 - HYDRONEPHROSIS WITH RENAL AND URETERAL CALCULOUS OBSTRUCTION (5) Hyperlipidemia Code(s): E78.5 - HYPERLIPIDEMIA, UNSPECIFIED Qualifiers: Qualified Code(s): E78.4 - Other hyperlipidemia (6) UTI (urinary tract infection) Code(s): N39.0 - URINARY TRACT INFECTION, SITE NOT SPECIFIED (7) Atrial fibrillation by electrocardiography Code(s): I48.91 - UNSPECIFIED ATRIAL FIBRILLATION (8) Bladder stones Code(s): N21.0 - CALCULUS IN BLADDER (9) Controlled diabetes mellitus with diabetic nephropathy, with long-term current use of insulin Code(s): E11.21 - TYPE 2 DIABETES MELLITUS WITH DIABETIC NEPHROPATHY Z79.4 - [employer] WORKER APPRENTICE (CURRENT) USE OF INSULIN Qualifiers: Qualified Code(s): E11.21 - Type 2 diabetes mellitus with diabetic nephropathy; Z79.4 - medical terminologist (current) use of insulin (10) 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 Code(s): E11.9 - TYPE 2 DIABETES MELLITUS WITHOUT COMPLICATIONS Qualifiers: Qualified Code(s): E11.9 - Type 2 diabetes mellitus without complications (11) 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 due to underlying condition with hyperglycemia Code(s): E08.65 - DIABETES DUE TO UNDERLYING CONDITION W HYPERGLYCEMIA Qualifiers: Qualified Code(s): E08.65 - 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 due to underlying condition with hyperglycemia (12) HTN (hypertension) Code(s): I10 - ESSENTIAL (PRIMARY) HYPERTENSION Qualifiers: Qualified Code(s): I10 - Essential (primary) hypertension (13) Kidney stone Code(s): N20.0 - CALCULUS OF KIDNEY (14) Paroxysmal a-fib Code(s): I48.0 - PAROXYSMAL ATRIAL FIBRILLATION (15) S/P coronary artery stent placement Code(s): Z95.5 - PRESENCE OF CORONARY ANGIOPLASTY IMPLANT AND GRAFT (16) Sepsis Code(s): A41.9 - SEPSIS, UNSPECIFIED ORGANISM Qualifiers: Qualified Code(s): A41.9 - Sepsis, unspecified organism (17) Urinary retention Code(s): R33.9 - RETENTION OF URINE, UNSPECIFIED This patient is new to me today: No Emergency Visit: Yes ED Registration Date: 01/31/17 Care time: The patient presented to the Emergency Department on the above date and was hospitalized for further evaluation of their emergent condition. Critical Care patient: No - Discharge Referral Referred to [facility] No
[2017-02-10] MEDS: INSULIN DETEMIR 100 UNITS/ML MDV SQ SCH (21:47)
[2017-02-10 23:47] VITALS: BP 124/55; PULSE 66; TEMP 97.3
== END 2017-02-10 23:05 | disposition home or self-care (01) | DRG 304 ==
LOC: SUPCPDRO 20:40 → JER 20:40 → JERBED 01-31 01:47 → UNDOADMOB 01-31 02:01 → OBSVTOIN 01-31 08:09 → J4S 01-31 08:59 → JICU 01-31 17:21 → J4S 02-02 17:23
PROVIDERS: ADMIT Internal Medicine; ATTEND Internal Medicine
PROC: 0T143JD Bypass Left Kidney Pelvis to Cutaneous with Synthetic Substitute, Percutaneous Approach (ICD-10-PCS; principal; 2017-01-31)
PROC: 0TJB8ZZ Inspection of Bladder, Via Natural or Artificial Opening Endoscopic (ICD-10-PCS; 2017-02-05)
PROC: 0TBB3ZX Excision of Bladder, Percutaneous Approach, Diagnostic (ICD-10-PCS; 2017-02-05 10:30)
PROC: 0T25X0Z Change Drainage Device in Kidney, External Approach (ICD-10-PCS; 2017-02-06)
PROC: 0T773DZ Dilation of Left Ureter with Intraluminal Device, Percutaneous Approach (ICD-10-PCS; 2017-02-06)
DX: N13.2 Hydronephrosis with renal and ureteral calculous obstruction (principal); E11.21 Type 2 diabetes mellitus with diabetic nephropathy; E87.1 Hypo-osmolality and hyponatremia; E78.5 Hyperlipidemia, unspecified; I25.10 Atherosclerotic heart disease of native coronary artery without angina pectoris; N21.0 Calculus in bladder; Z79.4 Long term (current) use of insulin; Z98.61 Coronary angioplasty status; N17.9 Acute kidney failure, unspecified; N39.0 Urinary tract infection, site not specified; B96.20 Unspecified Escherichia coli [E. coli] as the cause of diseases classified elsewhere; I12.9 Hypertensive chronic kidney disease with stage 1 through stage 4 chronic kidney disease, or unspecified chronic kidney disease; N18.3 Chronic kidney disease, stage 3 (moderate); I48.0 Paroxysmal atrial fibrillation; D64.9 Anemia, unspecified; R04.0 Epistaxis; I25.119 Atherosclerotic heart disease of native coronary artery with unspecified angina pectoris; R33.9 Retention of urine, unspecified; R07.89 Other chest pain; R19.7 Diarrhea, unspecified; E83.42 Hypomagnesemia; N32.9 Bladder disorder, unspecified
CPT/HCPCS: 36415; 50431; 50432; 50435; 50693; 71010-TC; 74000-TC; 74176-TC; 74425-TC; 76000-TC; 76775-TC; 80048; 80053; 81003; 81015; 82550; 82553; 83036; 83605; 83690; 83735; 84100; 84484; 85025; 85027; 85610; 85730; 87040; 87086; 87186; 88305-TC; 93005; 93010; 94760; 97116-GP; 97161-GP; 99284-25; A4358; C1729; C1769; C1887; G0378

== ENCOUNTER 2017-03-26 07:22 | Day surgery (SDC) | payer OTHER ==
[2017-03-26] MEDS ORDERED: VANCOMYCIN 1,000 MG VIAL (RESTRICTED TO ID ONLY) IVPB ONE (09:15)
[2017-03-26] MEDS ORDERED: IOHEXOL 300 MG/ML INFUS..BTL IJ ONE (09:35)
[2017-03-26] MEDS ORDERED: LIDOCAINE HCL 2% JELLY 10 ML CARTRIDGE TP ONE (09:49)
[2017-03-26] MEDS ORDERED: oxyCODONE HCL 5 MG TABLET PO PRN (09:57)
[2017-03-26] MEDS ORDERED: ELECTROLYTE-148 SOLN 1,000 ML IV SCH (10:00)
--- NOTE | 2017-03-26 10:01 | OP ---
Operative Note - Note: Operative Date: 03/26/17 Pre-Operative Diagnosis: left distal ureteral stone, benign bladder tumor Operation: cysto,stent removal, left retrograde,left ureteroscopy, stent insertion Post-Operative Diagnosis: Other (passed stone, no bladder tumor) Surgeon: Daniel Edmondson Anesthesia: Spinal Specimens Removed: stent Estimated Blood Loss (mls): 1 Drains & Tubes with Location: 7fr, 24cm stent Operative Report Dictated: Yes
[2017-03-26] MEDS ORDERED: PROMETHAZINE HCL 25 MG/1 ML VIAL IVPUSH PRN (11:38)
[2017-03-26] MEDS ORDERED: ONDANSETRON 4 MG/2 ML VIAL IVPUSH PRN (11:38)
[2017-03-26] MEDS ORDERED: LACTATED RINGERS SOLUTION 1,000 ML IV SCH (11:45)
--- NOTE | 2017-03-26 13:43 | OP ---
DATE OF OPERATION: 03/26/2017 PROCEDURE: 1. Cystoscopy. 2. Stent removal. 3. Retrograde pyelogram. 4. Ureteroscopy. 5. Stent re-insertion. PREOPERATIVE DIAGNOSIS: 1. Left distal ureteral stone. 2. Bladder tumor. POSTOPERATIVE DIAGNOSIS: 1. Spontaneously passed stone. 2. No evidence of bladder tumor. COMPLICATIONS: There were no complications. ESTIMATED BLOOD LOSS: Minimal. HISTORY: The patient is a 71-year-old male with urosepsis secondary to an obstructing left distal ureteral stone. Approximately 1 month ago, he required nephrostomy tube placement. Also at that time, a cystoscopy revealed evidence of a benign bladder tumor that was biopsied and came back as an inflammatory small benign bladder tumor. He is taken to the OR now for treatment of the stone and bladder tumor. DESCRIPTION OF PROCEDURE: Patient was taken to the OR and placed supine on the operating table. Cardiac monitoring was administered. A spinal anesthetic was then given. He was prepped and draped in the dorsal lithotomy position. He was given 1 gm of vancomycin. The cystoscope was inserted without difficulty. status post TUR defect and the bladder visualized. There was a lot of debris noted in the bladder. This was drained and irrigated out. There was generalized erythema in the bladder but no evidence of a tumor per se and so the benign lesion noted on the last cystoscopy has resolved, likely with antibiotic therapy. At this point, attention was turned to the existing left ureteral stent. A guidewire was advanced alongside the stent into the renal pelvis. Using a grasper, the stent was then removed. A ureteroscope was advanced into the ureter and the entire ureter inspected. The distal ureter was mildly narrowed. However, there was no stone present. The ureter was inspected with the ureteroscope up to the level of the proximal ureter and no stone was noted. A retrograde pyelogram again was injected with no evidence of a filling defect. The ureteroscope was then removed and a 7-Indonesian, 26-cm, double pigtail stent was then advanced in a monorail fashion. Fluoroscopy confirmed the stent to be in good position. The patient was then awakened from anesthesia and transferred to the recovery room in stable condition. Reed [id number]
[2017-03-26] MEDS ORDERED: ATORVASTATIN CA 10 MG TABLET (FP) PO SCH (22:00)
[2017-03-26] MEDS ORDERED: WELCHOL 625 MG PO SCH (22:00)
[2017-03-26] MEDS ORDERED: APIXABAN 5 MG TABLET PO SCH (22:00)
[2017-03-27] MEDS ORDERED: LORATADINE 10 MG TABLET PO SCH (10:00)
[2017-03-27] MEDS ORDERED: amLODIPine BESYLATE 2.5 MG TABLET (FP) PO SCH (10:00)
[2017-03-27 11:20] VITALS: BP 133/55; PULSE 82; TEMP 97.6
--- NOTE | 2017-03-27 13:41 | PATH ---
Surgical Pathology Report Patient Name: PIPPA CARROLL Med. Rec. #: [id number] /Age/Gender: 1945 (Age: 71) / M Account: [id number] Location: AMBULATORY SURG Taken: 03/26/2017 Received: 03/26/2017 Reported: 03/27/2017 Physicians: Daniel Edmondson M.D. Specimen(s) Received OLD URETERAL STENT, LEFT Clinical History Left ureteral stone, bladder tumor Final Diagnosis OLD URETERAL STENT, LEFT, REPLACEMENT: STENT (GROSS EXAM). Electronically Signed Janusz Ralph M.D. Gross Description Received fresh labeled "old ureteral stent left" is a 38 cm in length white, coiled portion of tubing, consistent with a ureteral stent. No soft tissue is present. No sections are submitted, gross only. /03/26/2017 [facility]03/26/2017
== END 2017-03-27 13:18 | disposition home or self-care (01) ==
LOC: JASU-SURG 07:22 → JASUSAT 07:22 → J8W 13:15 → JASUSAT 03-27 13:18
PROVIDERS: ATTEND Urology
PROC: 0T778DZ Dilation of Left Ureter with Intraluminal Device, Via Natural or Artificial Opening Endoscopic (ICD-10-PCS; principal; 2017-03-26 09:00)
PROC: 0TP98DZ Removal of Intraluminal Device from Ureter, Via Natural or Artificial Opening Endoscopic (ICD-10-PCS; 2017-03-26 09:00)
DX: N20.1 Calculus of ureter (principal)
CPT/HCPCS: 76000-TC; 88300-TC; 94760

== ENCOUNTER 2017-11-12 04:43 | Emergency (ER) | payer OTHER ==
[2017-11-12 05:09] VITALS: BP 156/78; PULSE 91; TEMP 97.2; BMI 31.4
--- NOTE | 2017-11-12 05:12 | PDOC ---
History of Present Illness - General Chief Complaint: Urinary Problem Stated Complaint: URINARY PROBLEM Time Seen by Provider: 11/12/17 05:09 History Source: Patient - History of Present Illness Initial Comments: 11/12/17 05:20 72 year old male c/o urinary retention and dribbling for the last two days now with urinary retention and suprapubic pressure radiating to right flank. history bladder stone, GERD, Diabetes, BPH urologist: Dr. mittal 11/12/17 05:55 Past History - Past Medical History Allergies/Adverse Reactions: Allergies Allergy/AdvReac Type Severity Reaction Status Date / Time Naulyay-Zga-Kst Reductase Allergy Unknown Verified 11/12/17 05:07 Inhibitor lactose AdvReac Verified 11/12/17 05:07 Home Medications: Ambulatory Orders Tamsulosin HCl [Flomax -] 0.4 mg PO DAILY #10 capsule 06/01/16 Gemfibrozil [Lopid] 600 mg PO BID 10/14/16 Losartan Potassium [Cozaar -] 50 mg PO DAILY 10/14/16 Nitroglycerin [Nitrostat] 0.4 mg SL PRN PRN 10/14/16 Insulin (Levemir) [Levemir Vial] 14 units SQ ASDIR #0 10/24/16 Ranolazine [Ranexa -] 500 mg PO BID tab 11/01/16 Apixaban [Eliquis -] 5 mg PO BID #30 tablet 11/20/16 Atorvastatin Ca [Lipitor] 10 mg PO HS #30 tablet 11/20/16 Cetirizine HCl [Zyrtec -] 10 mg PO DAILY #30 tablet 11/20/16 Colesevelam HCl [Welchol (Nf)] 625 mg PO BID #30 tablet 11/20/16 Ranitidine [Zantac -] 150 mg PO DAILY #20 tablet 11/20/16 Insulin Sliding Scale [Novolog Vial Sliding Scale -] 0 units SQ QID PRN Amlodipine Besylate [Norvasc -] 2.5 mg PO DAILY #30 tablet 02/10/17 Ciprofloxacin [Cipro -] 250 mg PO BID #20 tablet 02/10/17 Isosorbide Mononitrate [Imdur -] 30 mg PO DAILY #30 tab 02/10/17 Metoprolol Tartrate [Lopressor -] 25 mg PO BID #60 tablet 02/10/17 Sulfamethoxazole/Trimethoprim [Bactrim Ds -] 1 tab PO BID #14 tablet 11/12/17 Anemia: No Asthma: No Cancer: No Cardiac Disorders: Yes (atrial flutter?) CVA: Yes (pt states several strokes) COPD: No CHF: No Dementia: No Diabetes: Yes (niddm) GI Disorders: No Disorders: Yes (kidney stent) HTN: Yes Hypercholesterolemia: Yes Liver Disease: No Seizures: No Thyroid Disease: No - Surgical History Abdominal Surgery: No Appendectomy: Yes Cardiac Surgery: Yes (2012) Cholecystectomy: (gallstones) Lung Surgery: No Neurologic Surgery: No Orthopedic Surgery: Yes (Left hip replacement) - Suicide/Smoking/Psychosocial Hx Smoking Status: No Smoking History: Current every day smoker Have you smoked in the past 12 months: No Number of Cigarettes Smoked Daily: 0 If you are a former smoker, when did you quit?: 1995 Cigars Per Day: 2 Information on smoking cessation initiated: Yes 'Breaking Loose' booklet given: 03/25/17 Hx Alcohol Use: No Drug/Substance Use Hx: No Substance Use Type: None Hx Substance Use Treatment: No Abd/GI Specific PMHX - Complaint Specific PMHX Diverticulitis: No Gall Bladder Disease: No GERD: No *Physical Exam - Vital Signs Last Vital Signs Temp Pulse Resp BP Pulse Ox 97.2 F L 91 H 16 156/78 98 11/12/17 05:07 11/12/17 05:07 11/12/17 05:07 11/12/17 05:07 11/12/17 05:07 - Physical Exam General Appearance: Yes: Appropriately Dressed Respiratory/Chest: positive: Lungs Clear, Normal Breath Sounds Gastrointestinal/Abdominal: positive: Normal Bowel Sounds, Tender (suprapubic fullness and tenderness. ), Soft Integumentary: positive: Warm Neurologic: positive: Fully Oriented, Alert Progress Note - Progress Note Progress Note: A: urinary retention P: UA : + 3 leuks previous culture ESBL sensitive to bactrim. UCX coughlin insertion *DC/Admit/Observation/Transfer Diagnosis at time of Disposition: Urinary retention UTI (urinary tract infection) Qualifiers: Urinary tract infection type: acute cystitis Hematuria presence: without hematuria Qualified Code(s): N30.00 - Acute cystitis without hematuria - Discharge Dispostion Disposition: HOME - Prescriptions Prescriptions: Sulfamethoxazole/Trimethoprim [Bactrim Ds -] 1 tab PO BID #14 tablet - Referrals Referrals: Loni Reyes [Primary Care Provider] - Daniel Edmondson MD [Staff Physician] - Call tomorrow - Patient Instructions Printed Discharge Instructions: DI for Urinary Retention in Men Additional Instructions: drink plenty of fluids. take bactrim as prescribed. follow up with your urologist as soon as possible. return to the ER if symptoms worsen. - Post Discharge Activity
--- NOTE | 2017-11-12 05:32 | PDOC ---
*Physical Exam - Vital Signs Last Vital Signs Temp Pulse Resp BP Pulse Ox 97.2 F L 91 H 16 156/78 98 11/12/17 05:07 11/12/17 05:07 11/12/17 05:07 11/12/17 05:07 11/12/17 05:07 Medical Decision Making - Medical Decision Making 11/12/17 05:31 agree with care from SANDY Chacon *DC/Admit/Observation/Transfer Diagnosis at time of Disposition: Urinary retention, UTI (urinary tract infection) - Discharge Dispostion Disposition: HOME - Prescriptions Prescriptions: Sulfamethoxazole/Trimethoprim [Bactrim Ds -] 1 tab PO BID #14 tablet - Referrals Referrals: Daniel Edmondson MD [Staff Physician] - Call tomorrow Loni Reyes [Primary Care Provider] - - Patient Instructions Printed Discharge Instructions: DI for Urinary Retention in Men Additional Instructions: drink plenty of fluids. take bactrim as prescribed. follow up with your urologist as soon as possible. return to the ER if symptoms worsen. - Post Discharge Activity
[2017-11-12 05:41] LABS: URINE APPEARANCE CLOUDY; URINE BILIRUBIN NEGATIVE (NEGATIVE); URINE BLOOD 2+ (NEGATIVE); URINE COLOR LTYELLOW; URINE GLUCOSE (UA) 3+ (NEGATIVE); URINE KETONE NEGATIVE (NEGATIVE); URINE NITRITE NEGATIVE (NEGATIVE); URINE UROBILINOGEN NEGATIVE mg/dL (0.2-1.0)
[2017-11-12 05:45] LABS: URINE LEUK ESTERASE 3+ (NEGATIVE); URINE PROTEIN 1+ (NEGATIVE)
[2017-11-12] MEDS ORDERED: SULFAMETHOXAZOLE/TRIMETHOPRIM 800MG/160MG D.S. TABLET PO ONE (05:52)
[2017-11-12 06:01] LABS: EPI CELLS RARE /HPF (FEW); YEAST MANY
== END 2017-11-12 06:26 | disposition home or self-care (01) ==
LOC: JER 04:43
PROC: 0T9B70Z Drainage of Bladder with Drainage Device, Via Natural or Artificial Opening (ICD-10-PCS; principal; 2017-11-12)
DX: N30.00 Acute cystitis without hematuria (principal); I10 Essential (primary) hypertension; E11.9 Type 2 diabetes mellitus without complications; Z79.4 Long term (current) use of insulin; Z79.84 Long term (current) use of oral hypoglycemic drugs; E78.00 Pure hypercholesterolemia, unspecified; I48.92 Unspecified atrial flutter; Z79.01 Long term (current) use of anticoagulants; Z86.73 Personal history of transient ischemic attack (TIA), and cerebral infarction without residual deficits
CPT/HCPCS: 81003; 81015; 82962; 87077; 87086; 99281-25; 99282-25

== ENCOUNTER 2017-11-13 13:14 | Inpatient (IN) | payer OTHER ==
[2017-11-13 13:47] VITALS: BMI 30.8
[2017-11-13] MEDS ORDERED: SODIUM CHLORIDE 500 ML IV STA (14:32)
--- NOTE | 2017-11-13 14:54 | PDOC ---
History of Present Illness - General History Source: Patient Exam Limitations: No Limitations - History of Present Illness Initial Comments: 11/13/17 16:25 The patient is a 77 year old male, with a significant past medical history of hypertension, hyperlipidemia, diabetes(non-insulin dependent), atrial flutter, AFib, CAD(s/p stents, on Eliquis), urinary retention, BPH, CKD(stage 3), kidney stones, gallstone, and diverticulosis, who presents to the emergency department with right flank pain and dysuria for approximately 3 days. Per records, the patient presented to the ED on 11/12/17 with similar symptoms, as well as urinary retention and dribbling for the past 2 days, with associated suprapubic pressure radiating into the right flank. At the time, the patient had a UA urine culture, which were consistent with a UTI and the patient was placed on Bactrim. Since then, patient reports more/worsening generalized weakness, to the point where his legs almost gave out. He denies any associated hematuria or frequency. Patient reports he has a coughlin catheter in place. He reports associated chest pain, which he describes as a pressure, that is exacerbated with exertion or when lying flat. He denies any shortness of breath , diaphoresis, or palpitations. He reports he has not had a bowel movement in several days, but denies any nausea, vomiting, or diarrhea. He denies any fever or chills. He denies any recent travel or sick contacts. Allergies: Ohkkifd-Hca-IyL reductase inhibitor, lactose Past Surgical History: Appendectomy, Cholecystectomy, Bladder stone removal Social History: Former smoker(quit 1995). Denies alcohol or drug use. PCP: Dr. Loni Reyes ([phone]) Restaurant Recruiter: Dr. Tapia Urologist: Dr. Edmondson <Brenda Dyson - Last Filed: 11/13/17 16:57> <Liam Flores - Last Filed: 11/13/17 17:01> - General Chief Complaint: Weakness Stated Complaint: DIZZINESS Time Seen by Provider: 11/13/17 14:08 Past History <Brenda Dyson - Last Filed: 11/13/17 16:57> - Past Medical History Anemia: No Asthma: No Cancer: No Cardiac Disorders: Yes (atrial flutter?) CVA: Yes (pt states several strokes) COPD: No CHF: No Dementia: No Diabetes: Yes (niddm) GI Disorders: No Disorders: Yes (kidney stent) HTN: Yes Hypercholesterolemia: Yes Liver Disease: No Seizures: No Thyroid Disease: No - Surgical History Abdominal Surgery: No Appendectomy: Yes Cardiac Surgery: Yes (2012) Cholecystectomy: (gallstones) Lung Surgery: No Neurologic Surgery: No Orthopedic Surgery: Yes (Left hip replacement) - Suicide/Smoking/Psychosocial Hx Smoking Status: No Smoking History: Former smoker Have you smoked in the past 12 months: No Number of Cigarettes Smoked Daily: 0 If you are a former smoker, when did you quit?: 1995 Cigars Per Day: 2 Information on smoking cessation initiated: No 'Breaking Loose' booklet given: 03/25/17 Hx Alcohol Use: No Drug/Substance Use Hx: No Substance Use Type: None Hx Substance Use Treatment: No <Liam Flores - Last Filed: 11/13/17 17:01> - Past Medical History Allergies/Adverse Reactions: Allergies Allergy/AdvReac Type Severity Reaction Status Date / Time Pzdsuuh-Iog-Hxj Reductase Allergy Unknown Verified 11/13/17 13:41 Inhibitor lactose AdvReac Verified 11/13/17 13:41 Home Medications: Ambulatory Orders Tamsulosin HCl [Flomax -] 0.4 mg PO DAILY #10 capsule 06/01/16 Gemfibrozil [Lopid] 600 mg PO BID 10/14/16 Losartan Potassium [Cozaar -] 50 mg PO DAILY 10/14/16 Nitroglycerin [Nitrostat] 0.4 mg SL PRN PRN 10/14/16 Ranolazine [Ranexa -] 500 mg PO BID tab 11/01/16 Apixaban [Eliquis -] 5 mg PO BID #30 tablet 11/20/16 Cetirizine HCl [Zyrtec -] 10 mg PO DAILY #30 tablet 11/20/16 Colesevelam HCl [Welchol (Nf)] 625 mg PO BID #30 tablet 11/20/16 Ranitidine [Zantac -] 150 mg PO DAILY #20 tablet 11/20/16 Insulin Sliding Scale [Novolog Vial Sliding Scale -] 0 units SQ QID PRN Amlodipine Besylate [Norvasc -] 2.5 mg PO DAILY #30 tablet 02/10/17 Isosorbide Mononitrate [Imdur -] 30 mg PO DAILY #30 tab 02/10/17 Metoprolol Tartrate [Lopressor -] 25 mg PO BID #60 tablet 02/10/17 Insulin (Levemir) [Levemir Vial] 20 units SQ BID 11/12/17 Sulfamethoxazole/Trimethoprim [Bactrim Ds -] 1 tab PO BID #14 tablet 11/12/17 Review of Systems - Review of Systems Able to Perform ROS?: Yes Comments:: 11/13/17 16:25 CONSTITUTIONAL: Reported: Generalized Weakness No reported: Fever, Chills, Diaphoresis, Malaise, Loss of Appetite HEENT: No reported: Rhinorrhea, Nasal Congestion, Throat Pain, Throat Swelling, Difficulty Swallowing, Mouth Swelling, Ear Pain, Eye Pain, Visual Changes CARDIOVASCULAR: Reported: Chest pressure No reported: Syncope, Palpitations, Irregular Heart Rate, Lightheadedness, Peripheral Edema RESPIRATORY: No reported: Cough, Shortness of Breath, SOB with Exertion, Orthopnea, Wheezing , Stridor, Hemoptysis GASTROINTESTINAL: Reported: Suprapubic pain No reported: Abdominal Distension, Nausea, Vomiting, Diarrhea, Constipation, Melena, Hematochezia GENITOURINARY: Reported: Dysuria, Hesitancy, Right flank pain No reported: Frequency, Urgency, Genital Pain MUSCULOSKELETAL: No reported: Myalgia, Arthralgia, Joint Swelling, Neck Pain HEMEATOLOGIC/IMMUNOLOGIC: No reported: Easy Bleeding, Easy Bruising, Lymphadenopathy, Frequent infections NEUROLOGIC: Reported: Leg weakness No reported: Headache,Paresthesias, Vertigo, Lightheadedness, Unsteady Gait, Seizure, Mental Status Changes, Incontinence <Siobhan Dysonomilsgabriel - Last Filed: 11/13/17 16:57> *Physical Exam - Vital Signs Last Vital Signs Temp Pulse Resp BP Pulse Ox 98.1 F 73 19 118/64 96 11/13/17 13:41 11/13/17 13:41 11/13/17 13:41 11/13/17 13:41 11/13/17 13:41 - Physical Exam Comments: 11/13/17 16:26 GENERAL: The patient is awake, alert, and fully oriented, Nontoxic - in no acute distress. HEAD: Normocephalic, atraumatic. EYES: extraocular movements intact, sclera anicteric, conjunctiva clear. ENT: Normal voice, Moist mucous membranes. NECK: Normal range of motion, supple LUNGS: Breath sounds equal, clear to auscultation bilaterally. No wheezes, no rhonchi, no rales. HEART: Regular rate and rhythm, normal S1 and S2 without murmur, rub or gallop. ABDOMEN: Soft, nontender, normoactive bowel sounds. No guarding, no rebound. No CVA tenderness, coughlin cather in place EXTREMITIES: Normal range of motion, s. NEUROLOGICAL: No facial assymetry, Normal speech, moving all 4 extremities spontaneously and symmetrically PSYCH: Normal mood, normal affect. SKIN: Warm, Dry, normal turgor. <Brenda Dyson - Last Filed: 11/13/17 16:57> - Vital Signs Last Vital Signs Temp Pulse Resp BP Pulse Ox 98.1 F 73 19 118/64 96 11/13/17 13:41 11/13/17 13:41 11/13/17 13:41 11/13/17 13:41 11/13/17 13:41 <Liam Flores - Last Filed: 11/13/17 17:01> Heart Score/ECG Review - ECG Impressions Comment:: 11/13/17 16:52 Twelve-lead EKG was performed and reviewed by me. There is normal sinus rhythm with a normal rate. Rate of 78 TWI in lateral leads (present on former ekg on 02/01/2017) mild ST depression on lateral leads no JORDYN noted <Liam Flores - Last Filed: 11/13/17 17:01> ED Treatment Course - LABORATORY CBC & Chemistry Diagram: 11/13/17 15:24 11/13/17 15:24 - ADDITIONAL ORDERS Additional order review: 11/13/17 15:24 RBC 3.61 L MCV 93.8 MCHC 33.2 RDW 13.5 D MPV 9.0 D Neutrophils % 56.3 Lymphocytes % 31.2 Monocytes % 9.7 Eosinophils % 1.9 Basophils % 0.9 - Medications Given in the ED: ED Medications Discontinued Medications Generic Name Dose Route Start Last Admin Trade Name Freq PRN Reason Stop Dose Admin Sodium Chloride 500 mls @ 500 mls/hr 11/13/17 14:32 11/13/17 15:41 Normal Saline - IV 11/13/17 15:31 500 mls/hr ASDIR STA Administration <Brenda Dyson - Last Filed: 11/13/17 16:57> - LABORATORY CBC & Chemistry Diagram: 11/13/17 15:24 11/13/17 15:24 <MarkLiam - Last Filed: 11/13/17 17:01> Medical Decision Making - Medical Decision Making 11/13/17 16:50 First call placed to Dr. Tapia at 16:50. Case discussed at this time. <Brenda Dyson - Last Filed: 11/13/17 16:57> - Medical Decision Making 11/13/17 14:32 72y M hx of ?aflutter on eliquis, cad s/p 1 stent, htn,hl, was here n the ED eralier today for complaint of urinary problems and had a cathter placed and was started on abx for UTI - presetns with geenralized weaknesss and intermittent chest pain since this morning. Pt denies any n/v, diaphoresis. He does endorse some BOWER/CP when he ambulates. on exam pt in no distress exam nonfocal beside mildly dry mucus membranes ddx includes acs, anemia, metobolic dernagement, infection will ck cbc, cmp, trop, ekg, will give fluids for hydration A portion of this note was documented by scribe services under my direction. I have reviewed the details of the note, within reason, and agree with the documentation with the following case summary and management plan written by me 11/13/17 16:34 pts labs reviewed +creatinine elvated to 3.0 trop borderline at 0.[address] to r/o kidney stone due to the flank pain/uti will admit for furthter management 11/13/17 16:53 case montse cordero agree with management - will trend Trop will hydrate with fluids awaiting CT will notify hospitalist service regarding admissoin to tele. 11/13/17 17:01 case montse Garza - agree with admission under dr. de los santos's service for further managment of CP, acute on chronic kidney disease and UTI stable for tele will give pt abx for his UTI she will follow CT to r/o stone - if stone will need nephrology Case discussed in detail with admitting physician including history, physical exam and ancillary studies. Admitting physician has assumed care for the patient, will follow all pending diagnostics and will complete the evaluation and treatment. <Liam Flores - Last Filed: 11/13/17 17:01> *DC/Admit/Observation/Transfer - Attestations Scribe Attestion: 11/13/17 16:26 Documentation prepared by Brenda Dyson, acting as medical science liaison for Liam Flores MD. <Brenda Dyson - Last Filed: 11/13/17 16:57> - Discharge Dispostion Admit: Yes <Liam Flores - Last Filed: 11/13/17 17:01> Diagnosis at time of Disposition: CKD (chronic kidney disease) Qualifiers: Chronic kidney disease stage: stage 3 (moderate) Qualified Code(s): N18.3 - Chronic kidney disease, stage 3 (moderate) Chest pain Qualifiers: Chest pain type: unspecified Qualified Code(s): R07.9 - Chest pain, unspecified UTI (urinary tract infection) Qualifiers: Urinary tract infection type: site unspecified Hematuria presence: with hematuria Qualified Code(s): N39.0 - Urinary tract infection, site not specified - Discharge Dispostion Condition at time of disposition: Stable
[2017-11-13 15:50] LABS: BASO % 0.9 % (0-2.0); EOS % 1.9 % (0-4.5); HEMATOCRIT 33.8 % (35.4-49); HEMOGLOBIN 11.2 GM/dL (11.7-16.9); LYMPH % 31.2 % (8-40); MCH 31.2 pg (25.7-33.7); MCHC 33.2 g/dl (32.0-35.9); MEAN CELL VOLUME 93.8 fl (80-96); MONO % 9.7 % (3.8-10.2); NEUT % 56.3 % (42.8-82.8); PLATELET COUNT 293 K/MM3 (134-434); RBC 3.61 M/mm3 (4.00-5.60); RDW 13.5 % (11.9-15.9); WHITE BLOOD COUNT 6.7 K/mm3 (4.0-10.0)
[2017-11-13 16:09] LABS: ALBUMIN 3.2 g/dl (3.4-5.0); ALK PHOS 174 U/L (45-117); ANION GAP 13 (8-16); BILIRUBIN,TOTAL 0.2 mg/dL (0.2-1.0); BLOOD UREA NITROGEN 37 mg/dL (7-18); CALCIUM 8.6 mg/dL (8.5-10.1); CHLORIDE 98 mmol/L (98-107); CO2 21 mmol/L (21-32); SGOT/AST 13 U/L (15-37); SGPT/ALT 18 U/L (12-78); SODIUM 132 mmol/L (136-145); TOT PROT 6.9 g/dl (6.4-8.2)
[2017-11-13 16:26] LABS: GLUCOSE,RANDOM 501 mg/dL (74-106)
[2017-11-13] MEDS ORDERED: ASPIRIN 81 MG CHEWABLE TABLETS PO ONE (16:33)
[2017-11-13] MEDS ORDERED: ASPIRIN 325 MG TABLET ONE (16:41)
[2017-11-13] MEDS ORDERED: CEFTRIAXONE 1 GM in DEXTROSE 5%-WATER - 50 ML IVPB ONE (17:00)
[2017-11-13] MEDS ORDERED: CEFTRIAXONE 1 GM/50 ML BAG ONE (18:30)
--- NOTE | 2017-11-13 19:52 | HP ---
CHIEF COMPLAINT: Right flank pain PCP: Dr. Loni Reyes [phone] Management Department Chair: Dr. Tapia Urologist: Dr. Edmondson HISTORY OF PRESENT ILLNESS: 72 year-old male with a PMH significant for HTN, HLD, CAD s/p stents, paroxysmal afib on Eliquis, diastolic heart failure, IDDM, CKD, BPH, urinary retention, recurrent E.coli ESBL UTIs, and nephrolithiasis. Patient presented to the ED early on the morning of 11/12/17 with a complaint of urinary retention , suprapubic pressure, and right flank pain. UA showed 3+leuks, 1023 WBCs, and 53 RBCs. A coughlin was placed and the patient was discharged with a prescription for Bactrim with a recommendation to follow up with his urologist. Today, the patient again presented to the ED with worsening weakness to the point where his legs almost gave out. Patient complains of persistent right flank pain. He also complains of recurrent chest pain that he has had for years. He describes it as chest pressure which is exacerbated with lying flat. It occurs with exertion and at rest. He takes sublingual nitroglycerin at home. Patient denies , diaphoresis, palpitations. Denies nausea, vomiting, diarrhea. Denied fever, sweats, chills. ER course was notable for: (1) Cr 3.0 (baseline 1.3) (2) Troponin 0.18 (3) ASA 325mg x 1; NS 500mL x 1; Ceftriaxone x 1 Recent Travel: No PAST MEDICAL HISTORY: Hypertension Hyperlipidemia Coronary artery disease Atrial fibrillation/flutter IDDM Chronic kidney disease Kidney stones PAST SURGICAL HISTORY: Cardiac catheterization s/p multi-vessel PCI stents (2012) Appendectomy Cholecystectomy Bladder stone removal Left hip replacement Social History: Smoking: quit 1995 Alcohol: no Drugs: no Family History: Allergies Kfmlfbv-[id number]-Fpd Reductase Inhibitor Allergy (Unknown, Verified 11/13/17 13:41) lactose Adverse Reaction (Verified 11/13/17 13:41) HOME MEDICATIONS: Home Medications Medication Instructions Recorded Tamsulosin HCl [Flomax -] 0.4 mg PO DAILY #10 capsule 06/01/16 Gemfibrozil [Lopid] 600 mg PO BID 10/14/16 Losartan Potassium [Cozaar -] 50 mg PO DAILY 10/14/16 Nitroglycerin [Nitrostat] 0.4 mg SL PRN PRN 10/14/16 Ranolazine [Ranexa -] 500 mg PO BID tab 11/01/16 Apixaban [Eliquis -] 5 mg PO BID #30 tablet 11/20/16 Cetirizine HCl [Zyrtec -] 10 mg PO DAILY #30 tablet 11/20/16 Colesevelam HCl [Welchol (Nf)] 625 mg PO BID #30 tablet 11/20/16 Ranitidine [Zantac -] 150 mg PO DAILY #20 tablet 11/20/16 Insulin Sliding Scale [Novolog 0 units SQ QID PRN 01/31/17 Vial Sliding Scale -] Amlodipine Besylate [Norvasc -] 2.5 mg PO DAILY #30 tablet 02/10/17 Isosorbide Mononitrate [Imdur -] 30 mg PO DAILY #30 tab 02/10/17 Metoprolol Tartrate [Lopressor -] 25 mg PO BID #60 tablet 02/10/17 Insulin (Levemir) [Levemir Vial] 20 units SQ BID 11/12/17 Sulfamethoxazole/Trimethoprim 1 tab PO BID #14 tablet 11/12/17 [Bactrim Ds -] REVIEW OF SYSTEMS CONSTITUTIONAL: +weakness Absent: fever, chills, diaphoresis, malaise, loss of appetite, weight change HEENT: Absent: rhinorrhea, nasal congestion, throat pain, throat swelling, difficulty swallowing, mouth swelling, ear pain, eye pain, visual changes CARDIOVASCULAR: +chest pain Absent: syncope, palpitations, irregular heart rate, lightheadedness, peripheral edema RESPIRATORY: Absent: cough, shortness of breath, dyspnea with exertion, orthopnea, wheezing, stridor, hemoptysis GASTROINTESTINAL: Absent: abdominal pain, abdominal distension, nausea, vomiting, diarrhea, constipation, melena, hematochezia GENITOURINARY: +dysuria, hesitancy, flank pain Absent: frequency, hesitancy, hematuria, genital pain MUSCULOSKELETAL: Absent: myalgia, arthralgia, joint swelling, back pain, neck pain SKIN: Absent: rash, itching, pallor HEMATOLOGIC/IMMUNOLOGIC: Absent: easy bleeding, easy bruising, lymphadenopathy, frequent infections ENDOCRINE: Absent: unexplained weight gain, unexplained weight loss, heat intolerance, cold intolerance NEUROLOGIC: Absent: headache, focal weakness or paresthesias, dizziness, unsteady gait, seizure, mental status changes, bladder or bowel incontinence PSYCHIATRIC: Absent: anxiety, depression, suicidal or homicidal ideation, hallucinations. PHYSICAL EXAMINATION Vital Signs - 24 hr 11/13/17 13:41 Temperature 98.1 F Pulse Rate 73 Respiratory 19 Rate Blood Pressure 118/64 O2 Sat by Pulse 96 Oximetry (%) GENERAL: Awake, alert, and fully oriented, in no acute distress. HEAD: Normal with no signs of trauma. EYES: Pupils equal, round and reactive to light, extraocular movements intact, sclera anicteric, conjunctiva clear. No lid lag. EARS, NOSE, THROAT: Ears normal, nares patent, oropharynx clear without exudates. Moist mucous membranes. NECK: Normal range of motion, supple without lymphadenopathy, JVD, or masses. LUNGS: Breath sounds equal, clear to auscultation bilaterally. No wheezes, and no crackles. No accessory muscle use. HEART: Regular rate and rhythm, normal S1 and S2 ABDOMEN: Soft, nontender, not distended, normoactive bowel sounds, no guarding, no rebound, no masses. MUSCULOSKELETAL: Normal range of motion at all joints. No bony deformities or tenderness. No CVA tenderness. UPPER EXTREMITIES: 2+ pulses, warm, well-perfused. No cyanosis. No clubbing. No peripheral edema. LOWER EXTREMITIES: 2+ pulses, warm, well-perfused. No calf tenderness. No peripheral edema. : Coughlin in place to leg bag, clear yellow urine NEUROLOGICAL: Cranial nerves II-XII intact. Normal speech. PSYCHIATRIC: Cooperative. Good eye contact. Appropriate mood and affect. SKIN: Warm, dry, normal turgor Laboratory Results - last 24 hr 11/13/17 11/13/17 11/13/17 15:24 15:24 15:24 WBC 6.7 RBC 3.61 L Hgb 11.2 L D Hct 33.8 L MCV 93.8 MCH 31.2 D MCHC 33.2 RDW 13.5 D Plt Count 293 D MPV 9.0 D Neutrophils % 56.3 Lymphocytes % 31.2 Monocytes % 9.7 Eosinophils % 1.9 Basophils % 0.9 Sodium 132 L Potassium 4.0 Chloride 98 Carbon Dioxide 21 D Anion Gap 13 BUN 37 H D Creatinine 3.0 H D Creat Clearance w eGFR 20.62 Random Glucose 501 H* D Calcium 8.6 Total Bilirubin 0.2 D AST 13 L D ALT 18 Alkaline Phosphatase 174 H D Creatine Kinase 113 Troponin I 0.18 H D Total Protein 6.9 Albumin 3.2 L D ASSESSMENT/PLAN: 72 year-old male with a PMH significant for HTN, HLD, CAD s/p stents, paroxysmal afib on Eliquis, diastolic heart failure, IDDM, CKD, BPH, urinary retention, recurrent E.coli ESBL UTIs, and nephrolithiasis. Admitted for LORY, UTI, and chest pain. Acute on chronic renal insufficiency --Cr 3.0, baseline 1.3 --possible obstructive uropathy, CTAP shows enlarged prostate impinging on urinary bladder --h/o nephrolithiasis, s/p left ureteral stent and left nephrostomy tube in 01/2017; however, CT shows no hydroureter, no renal or ureteral calculi now --urine studies ordered UTI h/o recurrent E.coli ESBL UTIs --impressive pyruia --extensive perivesical fat stranding on CT c/w active cystitis --start empiric meropenem --ID consult BPH h/o urinary retention --continue flomax --maintain coughlin --urology consult Chest pain Coronary artery disease --initial troponin 0.18, two pending --continue metoprolol, Ranexa, isosorbide --not on ASA due to h/o epistaxis --cardiology consult Diastolic heart failure --07/08/16 Echo: LV normal; RV normal; LAE; mild MR; mild TR; pHTN; trace PI --12/21/15 Stress: small to moderate size apical defect consistent with mild ischemia with preserved LV function --hold Losartan for now due to LORY --appears euvolemic Paroxysmal afib --rate well-controlled, continue metoprolol, amlodipine --continue Eliquis Hypertension --continue metoprolol, amlodipine; hold losartan for now Hyperlipidemia --on Gemfibrozil, Welchol IDDM --Levemir BID --Novolog sliding scale coverage DVT prophylaxis: on Eliquis Visit type - Emergency Visit Emergency Visit: Yes ED Registration Date: 11/13/17 Care time: The patient presented to the Emergency Department on the above date and was hospitalized for further evaluation of their emergent condition. - New Patient This patient is new to me today: Yes Date on this admission: 11/14/17 - Critical Care Critical Care patient: No
[2017-11-13] MEDS ORDERED: NITROGLYCERIN SUBLINGUAL 1/150 0.4 MG TAB SL PRN (20:33)
[2017-11-13] MEDS ORDERED: MEROPENEM 1 GM in DEXTROSE 5%-WATER - 100 ML IVPB SCH (20:45)
[2017-11-13] MEDS ORDERED: MEROPENEM 1 GM PUSH 1 GM/20 ML DISP.SYRIN IVPUSH ONE ×2 (21:30→23:15)
[2017-11-13] MEDS ORDERED: PATIENT'S OWN MEDICATION (NON-FORMULARY) (Colesevelam Hcl [Welchol (Nf)] 625 MG) PO SCH (22:00)
[2017-11-13] MEDS ORDERED: METOPROLOL TARTRATE 25 MG TABLET (FP) ONE (22:24)
[2017-11-13] MEDS: METOPROLOL TARTRATE 25 MG TABLET (FP) PO SCH (22:32)
[2017-11-13] MEDS ORDERED: INSULIN DETEMIR 100 UNITS/ML MDV SQ ONE (23:07)
[2017-11-13] MEDS: RANOLAZINE E.R. 500 MG TABLET (FP) PO SCH (23:12)
[2017-11-13] MEDS: APIXABAN 5 MG TABLET PO SCH (23:12)
[2017-11-13] MEDS: INSULIN DETEMIR 100 UNITS/ML MDV SQ SCH (23:12)
[2017-11-14] MEDS ORDERED: HEPARIN NA (PORCINE) 5,000 UNITS/ML 1ML VIAL SQ SCH (06:00)
[2017-11-14 06:12] LABS: BASO % 0.6 % (0-2.0); EOS % 3.4 % (0-4.5); HEMATOCRIT 34.5 % (35.4-49); HEMOGLOBIN 11.6 GM/dL (11.7-16.9); LYMPH % 39.2 % (8-40); MCH 31.2 pg (25.7-33.7); MCHC 33.6 g/dl (32.0-35.9); MEAN CELL VOLUME 92.8 fl (80-96); MEAN PLT VOLUME 9.1 fl (7.5-11.1); MONO % 10.7 % (3.8-10.2); NEUT % 46.1 % (42.8-82.8); PLATELET COUNT 310 K/MM3 (134-434); RBC 3.72 M/mm3 (4.00-5.60); RDW 13.8 % (11.9-15.9); WHITE BLOOD COUNT 7.4 K/mm3 (4.0-10.0)
[2017-11-14 06:35] LABS: ALBUMIN 3.1 g/dl (3.4-5.0); ANION GAP 6 (8-16); BILIRUBIN,TOTAL 0.5 mg/dL (0.2-1.0); BLOOD UREA NITROGEN 29 mg/dL (7-18); CALCIUM 8.1 mg/dL (8.5-10.1); CHLORIDE 105 mmol/L (98-107); CO2 24 mmol/L (21-32); GLUCOSE,RANDOM 204 mg/dL (74-106); MAGNESIUM 1.6 mg/dL (1.8-2.4); PHOSPHOROUS 2.9 mg/dL (2.5-4.9); POTASSIUM 3.9 mmol/L (3.5-5.1); SGOT/AST 10 U/L (15-37); SGPT/ALT 16 U/L (12-78); SODIUM 135 mmol/L (136-145)
[2017-11-14 06:39] LABS: ALK PHOS 142 U/L (45-117); N-TERMINAL BNP 252.03 pg/ml (5-125)
--- NOTE | 2017-11-14 07:22 | PN ---
Progress Note (short form) - Note Progress Note: Chief Complaint: Events noted, notes reviewed, denies any recurrent chest pain or dyspnea, reporting right flank discomfort History of Present Illness: Seen and examined in the ER as telemetry hold. Full consult dictated Echocardiography dated 12/21/2015 normal LV size and function, with mild TR and AK MPI study dated 12/21/2015 revealed small-moderate size apical defect compatible with mild ischemia with preserved LV function Medications: Current Medications Amlodipine Besylate (Norvasc -) 2.5 mg PO DAILY [facility] Apixaban (Eliquis -) 5 mg PO BID [facility] Last Admin: 11/13/17 23:12 Dose: 5 mg Gemfibrozil (Lopid -) 600 mg PO BIDAC [facility] Last Admin: 11/14/17 07:52 Dose: 600 mg Meropenem 1 gm/ Dextrose 100 mls @ 100 mls/hr IVPB Q8H-IV [facility] PRN Reason: Protocol Insulin Aspart (Novolog Vial Sliding Scale -) 1 vial SQ ACHS [facility] PRN Reason: Protocol Insulin Detemir (Levemir Vial) 20 units SQ BID@0700,2200 [facility] Last Admin: 11/14/17 07:33 Dose: 20 units Isosorbide Mononitrate (Imdur -) 30 mg PO DAILY [facility] Metoprolol Tartrate (Lopressor -) 25 mg PO BID [facility] Last Admin: 11/14/17 09:19 Dose: 25 mg Nitroglycerin (Nitrostat -) 0.4 mg SL DAILY PRN PRN Reason: FOR CHEST PAIN Non-Formulary Medication (Colesevelam Hcl [Welchol (Nf)]) 625 mg PO BID [facility] Ranitidine HCl (Zantac -) 150 mg PO DAILY [facility] Last Admin: 11/14/17 09:22 Dose: 150 mg Ranolazine (Ranexa -) 500 mg PO BID [facility] Last Admin: 11/13/17 23:12 Dose: 500 mg Tamsulosin HCl (Flomax -) 0.4 mg PO DAILY@0830 [facility] Last Admin: 11/14/17 09:23 Dose: 0.4 mg Review of Systems Cardiovascular: As noted above Respiratory: denies: denies: Cough or Sputum Production Gastrointestinal: denies: Nausea, Vomiting, Diarrhea, Constipation but reports Right Flank Discomfort Musculoskeletal: No Symptoms Reported Endocrine: No Symptoms Reported Vital Signs: Last Vital Signs Temp Pulse Resp BP Pulse Ox 98.4 F 74 16 124/68 98 11/14/17 07:24 11/14/17 07:24 11/14/17 07:24 11/14/17 07:24 11/14/17 07:24 Intake & Output 11/11/17 11/12/17 11/13/17 11/14/17 23:59 23:59 23:59 23:59 Output Total 150 Balance -150 Weight 240 lb Constitutional: No Distress, Calm Neck: Supple Negative JVD Respiratory: Diminished Breath Sounds at the bases Cardiovascular: S1 S2 Regular rate Rhythm Grade 1/6 SM Gastrointestinal: Soft Benign Normal Bowel Sounds Ext: No Edema Labs: Troponin, BNP 11/13/17 11/14/17 15:24 05:40 Troponin I 0.18 H D 0.20 H B-Natriuretic Peptide 252.03 H CBC, BMP 11/14/17 05:40 11/14/17 05:40 Assessment/Plan ASSESSMENT: 1. CAD post multi-vessel PCI stent angina pectoris, with evidence of demand ischemic injury, stable on medical therapy 2. Diastolic LV dysfunction with chronic class I NYHA classification LV failure , compensated/euvolemic 3. Paroxysmal atrial fibrillation previous history of RFA, [id number] score of 5, currently on A/C therapy NOAC's/Eliquis 4. HTN 5. DM 6. Hyperlipidemia 7. History of KATJA 8. Chronic kidney disease 9. Obstructive uropathy related to BPH with uro-sepsis 10. History of nephrolithiasis 11. Anemia PLAN: 1. Continue Lopressor, hemodynamics permitting 2. Continue Amlodipine, hemodynamics permitting 3. Ideally ARBS to be resumed pending renal function recovery, hemodynamics permitting 4. Continue Imdur, hemodynamics permitting 5. Continue Ranexa 6. Continue Eliquis and resume ASA with caution and close monitoring of CBC maintaining Hg equal or > 8.0 7. Antibiotics as per the primary team 8. Serial Tropnin I and plan to manage conservatively medically considering his co-morbidities specifically CKD 9. Repeat echocardiography to evaluate LV size and function martin Tapia M.D.
[2017-11-14] MEDS: INSULIN DETEMIR 100 UNITS/ML MDV SQ SCH ×2 (07:33→22:25)
[2017-11-14] MEDS ORDERED: INSULIN DETEMIR 100 UNITS/ML MDV SQ ONE (07:36)
[2017-11-14] MEDS: GEMFIBROZIL 600 MG TABLET (FP) PO SCH ×2 (07:52→16:11)
[2017-11-14] MEDS ORDERED: MAGNESIUM OXIDE 400 MG TABLET (FP) PO ONE (08:51)
--- NOTE | 2017-11-14 08:56 | PN ---
Physical Exam: SUBJECTIVE: Patient seen and examined. Continues to have right flank pain. PCP: Dr. Loni Reyes [phone] Grey Inspector: Dr. Tapia Urologist: Dr. Edmondson OBJECTIVE: Vital Signs Period Temp Pulse Resp BP Sys/Crawford Pulse Ox Last 24 Hr 98.0 F-98.4 F 60-76 16-19 116-124/55-76 95-98 GENERAL: The patient is awake, alert, and fully oriented, in no acute distress. LUNGS: Breath sounds equal, clear to auscultation bilaterally, no wheezes, no crackles, no accessory muscle use. HEART: Regular rate and rhythm, S1, S2 ABDOMEN: Soft, nontender, nondistended, normoactive bowel sounds, no guarding, no rebound EXTREMITIES: 2+ pulses, warm, well-perfused, no edema. NEUROLOGICAL: Cranial nerves II through XII grossly intact. Normal speech : Coughlin in place to leg bag, clear yellow urine Laboratory Results - last 24 hr 11/13/17 11/13/17 11/13/17 15:24 15:24 15:24 WBC 6.7 RBC 3.61 L Hgb 11.2 L D Hct 33.8 L MCV 93.8 MCH 31.2 D MCHC 33.2 RDW 13.5 D Plt Count 293 D MPV 9.0 D Neutrophils % 56.3 Lymphocytes % 31.2 Monocytes % 9.7 Eosinophils % 1.9 Basophils % 0.9 Sodium 132 L Potassium 4.0 Chloride 98 Carbon Dioxide 21 D Anion Gap 13 BUN 37 H D Creatinine 3.0 H D Creat Clearance w eGFR 20.62 Random Glucose 501 H* D Calcium 8.6 Phosphorus Magnesium Total Bilirubin 0.2 D AST 13 L D ALT 18 Alkaline Phosphatase 174 H D Creatine Kinase 113 Troponin I 0.18 H D B-Natriuretic Peptide Total Protein 6.9 Albumin 3.2 L D 11/14/17 11/14/17 05:40 05:40 WBC 7.4 RBC 3.72 L Hgb 11.6 L Hct 34.5 L MCV 92.8 MCH 31.2 MCHC 33.6 RDW 13.8 Plt Count 310 MPV 9.1 Neutrophils % 46.1 Lymphocytes % 39.2 D Monocytes % 10.7 H Eosinophils % 3.4 Basophils % 0.6 Sodium 135 L Potassium 3.9 Chloride 105 Carbon Dioxide 24 Anion Gap 6 L BUN 29 H D Creatinine 2.0 H D Creat Clearance w eGFR 32.92 Random Glucose 204 H D Calcium 8.1 L Phosphorus 2.9 Magnesium 1.6 L Total Bilirubin 0.5 D AST 10 L D ALT 16 Alkaline Phosphatase 142 H Creatine Kinase Troponin I B-Natriuretic Peptide 252.03 H Total Protein 7.0 Albumin 3.1 L Active Medications Generic Name Dose Route Start Last Admin Trade Name Freq PRN Reason Stop Dose Admin Amlodipine Besylate 2.5 mg 11/14/17 10:00 Norvasc - PO DAILY [facility] Apixaban 5 mg 11/13/17 22:00 11/13/17 23:12 Eliquis - PO 5 mg BID LON[facility] Administration Gemfibrozil 600 mg 11/14/17 07:00 11/14/17 07:52 Lopid - PO 600 mg BIDAC [facility] Administration Meropenem 1 gm/ Dextrose 100 mls @ 100 mls/hr 11/13/17 20:45 IVPB Q8H-IV [facility] Protocol Insulin Detemir 20 units 11/13/17 22:00 11/14/17 07:33 Levemir Vial SQ 20 units BID@0700,2200 [facility] Administration Isosorbide Mononitrate 30 mg 11/14/17 10:00 Imdur - PO DAILY [facility] Metoprolol Tartrate 25 mg 11/13/17 22:00 11/13/17 22:32 Lopressor - PO 25 mg BID [facility] Administration Nitroglycerin 0.4 mg 11/13/17 20:33 Nitrostat - SL DAILY PRN FOR CHEST PAIN Non-Formulary Medication 625 mg 11/13/17 22:00 Colesevelam Hcl [Welchol (Nf)] PO BID [facility] Ranitidine HCl 150 mg 11/14/17 10:00 Zantac - PO DAILY [facility] Ranolazine 500 mg 11/13/17 22:00 11/13/17 23:12 Ranexa - PO 500 mg BID [facility] Administration Tamsulosin HCl 0.4 mg 11/14/17 08:30 Flomax - PO DAILY@0830 [facility] ASSESSMENT/PLAN: 72 year-old male with a PMH significant for HTN, HLD, CAD s/p stents, paroxysmal afib on Eliquis, diastolic heart failure, IDDM, CKD, BPH, urinary retention, recurrent E.coli ESBL UTIs, and nephrolithiasis. Admitted for LORY, UTI, and chest pain. Acute on chronic renal insufficiency --Cr improved 3.0-->2.0, baseline 1.3 --possible obstructive uropathy from enlarged prostate, but FeNa 0.5% indicates prerenal Right flank pain h/o nephrolithiasis s/p left ureteral stent and left nephrostomy tube --CT shows no hydroureter, no renal or ureteral calculi UTI h/o recurrent E.coli ESBL UTIs --impressive pyruia --extensive perivesical fat stranding on CT c/w active cystitis --start empiric meropenem --ID consult BPH h/o urinary retention --continue flomax --maintain coughlin --urology consult Angina pectoris Coronary artery disease --flat trending troponins 0.18-->0.20-->0.21, likely demand ischemia, stable on medical therapy --continue metoprolol, Ranexa, isosorbide --restart ASA per cardiology --cardiology following Diastolic heart failure --07/08/16 Echo: LV normal; RV normal; LAE; mild MR; mild TR; pHTN; trace PI --12/21/15 Stress: small to moderate size apical defect consistent with mild ischemia with preserved LV function --hold Losartan for now due to LORY --appears euvolemic --echo on Thursday Paroxysmal afib --rate well-controlled, continue metoprolol, amlodipine --continue Eliquis Hypertension --continue metoprolol, amlodipine; hold losartan due to LORY Hyperlipidemia --on Gemfibrozil, Welchol IDDM --Levemir BID --Novolog sliding scale coverage Hypomagnesemia --replete FEN Fluids: PO intake adequate Electrolytes: replete as indicated Nutrition: diabetic, low sodium DVT prophylaxis: on Eliquis Physical therapy evaluation Dispo: continues to require inpatient care. Full Code. Visit type - Emergency Visit Emergency Visit: Yes ED Registration Date: 11/13/17 Care time: The patient presented to the Emergency Department on the above date and was hospitalized for further evaluation of their emergent condition. - New Patient This patient is new to me today: No - Critical Care Critical Care patient: No
[2017-11-14] MEDS: METOPROLOL TARTRATE 25 MG TABLET (FP) PO SCH ×2 (09:19→22:25)
[2017-11-14] MEDS ORDERED: RANITIDINE HCL 150 MG TABLET (FP) ONE (09:21)
[2017-11-14] MEDS: RANITIDINE HCL 150 MG TABLET (FP) PO SCH (09:22)
[2017-11-14] MEDS ORDERED: METOPROLOL TARTRATE 25 MG TABLET (FP) ONE (09:22)
[2017-11-14] MEDS ORDERED: TAMSULOSIN HCL 0.4 MG CAP.ER.24H (FP) ONE (09:22)
[2017-11-14] MEDS: TAMSULOSIN HCL 0.4 MG CAP.ER.24H (FP) PO SCH (09:23)
[2017-11-14] MEDS: APIXABAN 5 MG TABLET PO SCH ×2 (09:56→22:25)
[2017-11-14] MEDS: RANOLAZINE E.R. 500 MG TABLET (FP) PO SCH ×2 (09:57→22:25)
[2017-11-14] MEDS: amLODIPine BESYLATE 2.5 MG TABLET (FP) PO SCH (09:57)
[2017-11-14 09:58] LABS: URINE APPEARANCE SLCLOUDY; URINE BILIRUBIN NEGATIVE (NEGATIVE); URINE BLOOD 3+ (NEGATIVE); URINE COLOR YELLOW; URINE GLUCOSE (UA) 2+ (NEGATIVE); URINE KETONE NEGATIVE (NEGATIVE); URINE LEUK ESTERASE 3+ (NEGATIVE); URINE NITRITE NEGATIVE (NEGATIVE); URINE PROTEIN 2+ (NEGATIVE); URINE UROBILINOGEN NEGATIVE mg/dL (0.2-1.0)
[2017-11-14] MEDS: ASPIRIN COATED 81 MG TABLET.EC PO SCH (09:58)
[2017-11-14] MEDS ORDERED: CEFTRIAXONE 1 GM in DEXTROSE 5%-WATER - 50 ML IVPB SCH (10:00)
[2017-11-14] MEDS ORDERED: ISOSORBIDE MONONITRATE 30 MG TAB.SR.24H (FP) PO SCH ×2 (10:00)
[2017-11-14 10:03] LABS: GRANULAR CASTS 1 /lpf; URINE HYALINE CAST 1 /lpf; URINE MUCUS RARE
[2017-11-14] MEDS ORDERED: ASPIRIN 81 MG CHEWABLE TABLETS ONE (10:06)
[2017-11-14] MEDS: INSULIN SLIDING SCALE (NOVOLOG) 1 VIAL SQ SCH ×4 (11:02→22:25)
--- NOTE | 2017-11-14 12:36 | CONS ---
DATE OF CONSULTATION: 11/14/2017 REQUESTING PHYSICIAN: Hospitalist. CHIEF COMPLAINT: Chest discomfort, evaluation of elevated troponin I level. 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 of coronary artery disease status post multi-vessel percutaneous coronary intervention stenting, angina pectoris, diastolic left ventricular dysfunction with chronic class 1 [place] [employer] Classification left ventricular failure, paroxysmal atrial fibrillation, CHADS2-VASc score of 5, on chronic anticoagulation therapy with Eliquis, hypertensive cardiovascular disease, diabetes mellitus, hypercholesterolemia, cholelithiasis, nephrolithiasis, benign prostatic hypertrophy, recurrent urinary tract infections, who presented to [facility] with urinary retention, right flank pain. In addition, patient had reported recurrent episodes of retrosternal chest discomfort and was noted to have elevated troponin I level at 0.18. Patient has been reporting recurrent episodes of retrosternal chest discomfort described as sharp pain, which were noted at rest and with physical activity. Symptoms usually subside spontaneously and occasionally he has administered sublingual nitroglycerin. Patient denied any associated symptomatology, i.e. diaphoresis. Patient denies any orthopnea, paroxysmal nocturnal dyspnea, or peripheral edema. Patient denies any palpitations, dizziness, lightheadedness, or syncope. Patient reports fatigue and tiredness. Patient admits to lack of exercise. PAST MEDICAL HISTORY: Coronary artery disease status post multi-vessel percutaneous coronary intervention stenting, angina pectoris, diastolic left ventricular dysfunction with chronic class 1 [place] [employer] Classification left ventricular failure, paroxysmal atrial fibrillation, CHADS2-VASc score of 5, on chronic anticoagulation therapy with Eliquis, hypertensive cardiovascular disease, diabetes mellitus, hypercholesterolemia, cholelithiasis, nephrolithiasis, benign prostatic hypertrophy, recurrent urinary tract infections. PAST SURGICAL HISTORY: Appendectomy and post hip replacement surgery. SOCIAL HISTORY: Prior history of tobacco abuse. FAMILY HISTORY: Positive for coronary artery disease. ALLERGIES: Intolerant to STATIN THERAPY administration. . MEDICATIONS: Medical therapy currently includes Norvasc 2.5 mg once a day, Eliquis 5 mg twice a day, Lopid 600 mg twice a day, meropenem 1 g every 8 hours, insulin coverage, Imdur 30 mg once a day, Lopressor 25 mg twice a day, Welchol 625 mg twice a day, Zantac 150 mg once a day, Ranexa 500 mg twice a day, Flomax 0.4 mg once a day. REVIEW OF SYSTEMS: Head and neck: Denies headache, photophobia, blurring of vision. Respiratory: No cough or sputum production. Cardiovascular: As noted above. Gastrointestinal: No nausea, vomiting, diarrhea, or abdominal discomfort. Genitourinary: As noted above. Musculoskeletal: No symptoms reported. PHYSICAL EXAMINATION: Vital signs: Blood pressure is 124/68 mmHg, pulse rate is 74 beats per minute. Head and neck: Pupils equally reactive to light and accommodation. Extraocular muscles are intact. Anicteric sclerae. Negative JVD. No bruit appreciated. Chest: Clear to auscultation and percussion. Cardiovascular: S1, S2 regular. Grade 1/6 systolic apical murmur. No clicks or gallops. Abdomen: Soft, benign. Normoactive bowel sounds. Extremities: Negative edema. Intact distal pulses. No calf tenderness. STUDIES: Electrocardiogram reveals sinus rhythm, premature supraventricular contraction, and ST-segment and T-wave abnormality CPK was noted. Troponin initially was 0.18, repeat 0.20. Brain natriuretic peptide was 252. CBC revealed a white cell count of 7.4, hemoglobin of 11.6, platelet count 311. Basic metabolic profile revealed a sodium of 135, potassium 3.9, BUN 29, creatinine 2.0, glucose 204. ASSESSMENT: 1. Coronary artery disease post multi-vessel percutaneous coronary intervention stenting, angina pectoris, with evidence of demand ischemic injury with no clinical syndrome. Stable on medical therapy. 2. Diastolic left ventricular dysfunction with chronic class 1 [place] [employer] Classification left ventricular failure. Compensated/euvolemic. 3. Paroxysmal atrial fibrillation with prior history of radiofrequency ablation, CHADS2-VASc score of 5, currently on anticoagulation therapy with Eliquis. 4. Hypertensive cardiovascular disease. 5. 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. 6. Hypercholesterolemia. 7. History of obstructive sleep apnea. 8. Chronic kidney disease. 9. History of obstructive uropathy related to benign prostatic hypertrophy with history of urosepsis. 10. History of nephrolithiasis. 11. Anemia. RECOMMENDATIONS: 1. Continuation of Lopressor therapy, hemodynamics permitting. 2. Continuation of Norvasc therapy, hemodynamics permitting. 3. Ideally, angiotensin receptor block therapy to be reinitiated pending renal function recovery, hemodynamics permitting. 4. Continue Imdur, hemodynamics permitting. 5. Continue Ranexa. 6. Continue Eliquis and resume aspirin with caution and close monitoring of CBC, maintaining hemoglobin equal or greater than 8.0. 7. Antibiotics as per the primary team. 8. Serial troponin I and plan to manage conservatively medically considering his comorbidities specifically chronic kidney disease. 9. Echocardiography for evaluation of left ventricular systolic function. Thank you for the kind referral. RACHEL CHANEY M.D. [id number]
--- NOTE | 2017-11-14 15:25 | PN ---
Progress Note (short form) - Note Progress Note: ID Consult dictated Recurrent UTI Hx ESBL Azotemia Pending cultures, empiric ertapenem, adjusted for azotemia
[2017-11-14] MEDS ORDERED: INSULIN (NOVOLOG) ASPART 100 UNITS/ML 10ML VIAL ONE (16:28)
--- NOTE | 2017-11-14 16:31 | EKG ---
Test Reason : Blood Pressure : / mmHG Vent. Rate : 056 BPM Atrial Rate : 056 BPM P-R Int : 162 ms QRS Dur : 100 ms QT Int : 432 ms P-R-T Axes : 045 020 134 degrees QTc Int : 416 ms SINUS BRADYCARDIA MINIMAL VOLTAGE CRITERIA FOR LVH, MAY BE NORMAL VARIANT ABNORMAL ECG WHEN COMPARED WITH ECG OF 13-NOV-2017 15:46, PREMATURE ATRIAL COMPLEXES ARE NO LONGER PRESENT Confirmed by HEBER MATHIAS MD ([id number]) on 11/14/2017 4:30:48 PM Referred By: Arie PRICE Confirmed By:HEBER MATHIAS MD
--- NOTE | 2017-11-14 17:02 | EKG ---
Test Reason : Blood Pressure : / mmHG Vent. Rate : 078 BPM Atrial Rate : 078 BPM P-R Int : 172 ms QRS Dur : 102 ms QT Int : 402 ms P-R-T Axes : 074 010 151 degrees QTc Int : 458 ms SINUS RHYTHM WITH PREMATURE ATRIAL COMPLEXES ABNORMAL ECG WHEN COMPARED WITH ECG OF 01-FEB-2017 02:12, PREMATURE ATRIAL COMPLEXES ARE NOW PRESENT Confirmed by HEBER MATHIAS MD ([id number]) on 11/14/2017 5:02:14 PM Referred By: Confirmed By:HEBER MATHIAS MD
[2017-11-14] MEDS: ERTAPENEM SODIUM 0.5 GM in SODIUM CHLORIDE 50 ML IVPB SCH (17:59)
[2017-11-15] MEDS: INSULIN DETEMIR 100 UNITS/ML MDV SQ SCH ×2 (06:03→22:20)
[2017-11-15] MEDS: GEMFIBROZIL 600 MG TABLET (FP) PO SCH ×2 (06:04→17:51)
[2017-11-15] MEDS: INSULIN SLIDING SCALE (NOVOLOG) 1 VIAL SQ SCH ×4 (06:04→22:21)
[2017-11-15] MEDS ORDERED: INSULIN (NOVOLOG) ASPART 100 UNITS/ML 10ML VIAL ONE ×2 (06:44→12:04)
[2017-11-15 07:50] LABS: BASO % 0.7 % (0-2.0); HEMATOCRIT 34.6 % (35.4-49); HEMOGLOBIN 11.7 GM/dL (11.7-16.9); LYMPH % 36.2 % (8-40); MCH 31.4 pg (25.7-33.7); MCHC 33.8 g/dl (32.0-35.9); MEAN CELL VOLUME 92.8 fl (80-96); MEAN PLT VOLUME 9.1 fl (7.5-11.1); MONO % 9.1 % (3.8-10.2); PLATELET COUNT 286 K/MM3 (134-434); RBC 3.73 M/mm3 (4.00-5.60); RDW 13.4 % (11.9-15.9); WHITE BLOOD COUNT 6.6 K/mm3 (4.0-10.0)
[2017-11-15 08:32] LABS: ANION GAP 6 (8-16); BLOOD UREA NITROGEN 22 mg/dL (7-18); CALCIUM 8.7 mg/dL (8.5-10.1); CHLORIDE 105 mmol/L (98-107); CO2 27 mmol/L (21-32); CREATININE 1.5 mg/dL (0.7-1.3); GLUCOSE,RANDOM 165 mg/dL (74-106); POTASSIUM 4.1 mmol/L (3.5-5.1); SODIUM 138 mmol/L (136-145)
--- NOTE | 2017-11-15 09:14 | PN ---
Physical Exam: SUBJECTIVE: Patient seen and examined. Coughlin found to be dislodged, dropped into the prostatic urethra. Repositioned with 700cc's return. Urine brownish/ bloody. Still with right flank pain. Repeat CT imaging pending. OBJECTIVE: Vital Signs Period Temp Pulse Resp BP Sys/Crawford Pulse Ox Last 24 Hr 97.3 F-98.3 F 54-64 16-18 106-150/50-74 96-97 GENERAL: The patient is awake, alert, and fully oriented, in no acute distress. LUNGS: Breath sounds equal, clear to auscultation bilaterally, no wheezes, no crackles, no accessory muscle use. HEART: Regular rate and rhythm, S1, S2 ABDOMEN: Soft, nontender, nondistended, normoactive bowel sounds, no guarding, no rebound EXTREMITIES: 2+ pulses, warm, well-perfused, no edema. NEUROLOGICAL: Cranial nerves II through XII grossly intact. Normal speech. Laboratory Results - last 24 hr 11/14/17 11/14/17 11/14/17 05:40 09:13 09:13 WBC RBC Hgb Hct MCV MCH MCHC RDW Plt Count MPV Neutrophils % Lymphocytes % Monocytes % Eosinophils % Basophils % Sodium Potassium Chloride Carbon Dioxide Anion Gap BUN Creatinine POC Glucometer Random Glucose Calcium Troponin I 0.20 H Urine Color Yellow Urine Appearance Slcloudy Urine pH 5.0 Ur Specific Gates 1.026 Urine Protein 2+ H Urine Glucose (UA) 2+ H Urine Ketones Negative Urine Blood 3+ H Urine Nitrite Negative Urine Bilirubin Negative Urine Urobilinogen Negative Ur Leukocyte Esterase 3+ H Urine WBC (Auto) 300 Urine RBC (Auto) 211 Hyaline Casts 1 Granular Casts 1 Urine Mucus Rare Ur Random Sodium Cancelled Ur Random Potassium Ur Random Chloride Urine Creatinine 11/14/17 11/14/17 11/14/17 09:13 11:05 12:15 WBC RBC Hgb Hct MCV MCH MCHC RDW Plt Count MPV Neutrophils % Lymphocytes % Monocytes % Eosinophils % Basophils % Sodium Potassium Chloride Carbon Dioxide Anion Gap BUN Creatinine POC Glucometer [phone] Random Glucose Calcium Troponin I 0.21 H Urine Color Urine Appearance Urine pH Ur Specific Gates Urine Protein Urine Glucose (UA) Urine Ketones Urine Blood Urine Nitrite Urine Bilirubin Urine Urobilinogen Ur Leukocyte Esterase Urine WBC (Auto) Urine RBC (Auto) Hyaline Casts Granular Casts Urine Mucus Ur Random Sodium 66 Ur Random Potassium 21.4 Ur Random Chloride 69 Urine Creatinine 184.0 11/15/17 11/15/17 06:00 06:00 WBC 6.6 RBC 3.73 L Hgb 11.7 Hct 34.6 L MCV 92.8 MCH 31.4 MCHC 33.8 RDW 13.4 Plt Count 286 MPV 9.1 Neutrophils % 50.0 Lymphocytes % 36.2 Monocytes % 9.1 Eosinophils % 4.0 Basophils % 0.7 Sodium 138 Potassium 4.1 Chloride 105 Carbon Dioxide 27 Anion Gap 6 L BUN 22 H D Creatinine 1.5 H D POC Glucometer Random Glucose 165 H Calcium 8.7 Troponin I Urine Color Urine Appearance Urine pH Ur Specific Gates Urine Protein Urine Glucose (UA) Urine Ketones Urine Blood Urine Nitrite Urine Bilirubin Urine Urobilinogen Ur Leukocyte Esterase Urine WBC (Auto) Urine RBC (Auto) Hyaline Casts Granular Casts Urine Mucus Ur Random Sodium Ur Random Potassium Ur Random Chloride Urine Creatinine Active Medications Generic Name Dose Route Start Last Admin Trade Name Freq PRN Reason Stop Dose Admin Amlodipine Besylate 2.5 mg 11/14/17 10:00 11/14/17 09:57 Norvasc - PO 2.5 mg DAILY LON[facility] Administration Apixaban 5 mg 11/13/17 22:00 11/14/17 22:25 Eliquis - PO 5 mg BID LONNIE Administration Aspirin 81 mg 11/14/17 10:00 11/14/17 09:58 Ecotrin - PO 81 mg DAILY [facility] Administration Gemfibrozil 600 mg 11/14/17 07:00 11/15/17 06:04 Lopid - PO 600 mg BIDAC [facility] Administration Ertapenem 0.5 gm/ Sodium 50 mls @ 100 mls/hr 11/14/17 17:00 11/14/17 17:59 Chloride IVPB 100 mls/hr Q24H [facility] Administration Protocol Insulin Aspart 1 vial 11/14/17 11:00 11/15/17 06:04 Novolog Vial Sliding Scale - SQ 2 unit ACHS [facility] Administration Protocol Insulin Detemir 20 units 11/13/17 22:00 11/15/17 06:03 Levemir Vial SQ 20 units BID@0700,2200 [facility] Administration Isosorbide Mononitrate 60 mg 11/14/17 10:33 Imdur - PO DAILY [facility] Metoprolol Tartrate 25 mg 11/13/17 22:00 11/14/17 22:25 Lopressor - PO 25 mg BID L[facility] Administration Nitroglycerin 0.4 mg 11/13/17 20:33 Nitrostat - SL DAILY PRN FOR CHEST PAIN Non-Formulary Medication 625 mg 11/13/17 22:00 Colesevelam Hcl [Welchol (Nf)] PO BID [facility] Ranitidine HCl 150 mg 11/14/17 10:00 11/14/17 09:22 Zantac - PO 150 mg DAILY [facility] Administration Ranolazine 500 mg 11/13/17 22:00 11/14/17 22:25 Ranexa - PO 500 mg BID [facility] Administration Tamsulosin HCl 0.4 mg 11/14/17 08:30 11/14/17 09:23 Flomax - PO 0.4 mg DAILY@0830 [facility] Administration ASSESSMENT/PLAN ASSESSMENT/PLAN: 72 year-old male with a PMH significant for HTN, HLD, CAD s/p stents, paroxysmal afib on Eliquis, diastolic heart failure, IDDM, CKD, BPH, urinary retention, recurrent E.coli ESBL UTIs, and nephrolithiasis. Admitted for LORY, UTI, and chest pain. Acute on chronic renal insufficiency --Cr improved 3.0-->2.0-->1.5, baseline 1.3 --possible obstructive uropathy from enlarged prostate, but FeNa 0.5% indicates prerenal Right flank pain h/o nephrolithiasis s/p left ureteral stent and left nephrostomy tube --CT x 2 shows no hydroureter, no renal or ureteral calculi UTI h/o recurrent E.coli ESBL UTIs --impressive pyruia; urine culture negative but ceftriaxone x 1 dose had been given prior to collection --extensive perivesical fat stranding on CT c/w active cystitis --continue meropenem --ID consult BPH h/o urinary retention --continue flomax --maintain coughlin --urology consult Angina pectoris Coronary artery disease --flat trending troponins 0.18-->0.20-->0.21, likely demand ischemia, stable on medical therapy --continue metoprolol, Ranexa, isosorbide --restart ASA per cardiology --cardiology following Diastolic heart failure --07/08/16 Echo: LV normal; RV normal; LAE; mild MR; mild TR; pHTN; trace PI --12/21/15 Stress: small to moderate size apical defect consistent with mild ischemia with preserved LV function --hold Losartan for now due to LORY --appears euvolemic --echo on Thursday Paroxysmal afib --rate well-controlled, continue metoprolol, amlodipine --continue Eliquis Hypertension --continue metoprolol, amlodipine; hold losartan due to LORY Hyperlipidemia --on Gemfibrozil, Welchol IDDM --Levemir BID --Novolog sliding scale coverage Hypomagnesemia --replete FEN Fluids: PO intake adequate Electrolytes: replete as indicated Nutrition: diabetic, low sodium DVT prophylaxis: on Eliquis Physical therapy evaluation Dispo: continues to require inpatient care. Full Code. Visit type - Emergency Visit Emergency Visit: Yes ED Registration Date: 11/13/17 Care time: The patient presented to the Emergency Department on the above date and was hospitalized for further evaluation of their emergent condition. - New Patient This patient is new to me today: No - Critical Care Critical Care patient: No
--- NOTE | 2017-11-15 09:29 | PN ---
Progress Note (short form) - Note Progress Note: Chief Complaint: Events noted, notes reviewed, denies any recurrent chest pain, denies any dyspnea, reports persistent right flank discomfort History of Present Illness: Seen and examined ion telemetry. Events noted, notes reviewed, denies any recurrent chest pain, denies any dyspnea, reports persistent right flank discomfort Reports hematuria this AM Echocardiography dated 12/21/2015 normal LV size and function, with mild TR and CA MPI study dated 12/21/2015 revealed small-moderate size apical defect compatible with mild ischemia with preserved LV function Medications: Current Medications Amlodipine Besylate (Norvasc -) 2.5 mg PO DAILY [facility] Last Admin: 11/14/17 09:57 Dose: 2.5 mg Apixaban (Eliquis -) 5 mg PO BID [facility] Last Admin: 11/14/17 22:25 Dose: 5 mg Aspirin (Ecotrin -) 81 mg PO DAILY [facility] Last Admin: 11/14/17 09:58 Dose: 81 mg Gemfibrozil (Lopid -) 600 mg PO BIDAC [facility] Last Admin: 11/15/17 06:04 Dose: 600 mg Ertapenem 0.5 gm/ Sodium (Chloride) 50 mls @ 100 mls/hr IVPB Q24H [facility] PRN Reason: Protocol Last Admin: 11/14/17 17:59 Dose: 100 mls/hr Insulin Aspart (Novolog Vial Sliding Scale -) 1 vial SQ ACHS [facility] PRN Reason: Protocol Last Admin: 11/15/17 06:04 Dose: 2 unit Insulin Detemir (Levemir Vial) 20 units SQ BID@0700,2200 [facility] Last Admin: 11/15/17 06:03 Dose: 20 units Isosorbide Mononitrate (Imdur -) 60 mg PO DAILY [facility] Metoprolol Tartrate (Lopressor -) 25 mg PO BID [facility] Last Admin: 11/14/17 22:25 Dose: 25 mg Nitroglycerin (Nitrostat -) 0.4 mg SL DAILY PRN PRN Reason: FOR CHEST PAIN Non-Formulary Medication (Colesevelam Hcl [Welchol (Nf)]) 625 mg PO BID [facility] Ranitidine HCl (Zantac -) 150 mg PO DAILY [facility] Last Admin: 11/14/17 09:22 Dose: 150 mg Ranolazine (Ranexa -) 500 mg PO BID [facility] Last Admin: 11/14/17 22:25 Dose: 500 mg Tamsulosin HCl (Flomax -) 0.4 mg PO DAILY@0830 [facility] Last Admin: 11/14/17 09:23 Dose: 0.4 mg Review of Systems Cardiovascular: As noted above Respiratory: denies: denies: Cough or Sputum Production Gastrointestinal: denies: Nausea, Vomiting, Diarrhea, Constipation but reports Right Flank Discomfort Musculoskeletal: No Symptoms Reported Endocrine: No Symptoms Reported Vital Signs: Last Vital Signs Temp Pulse Resp BP Pulse Ox 97.8 F 64 18 150/74 97 11/15/17 05:33 11/15/17 05:33 11/15/17 05:33 11/15/17 05:33 11/14/17 21:00 Intake & Output 11/12/17 11/13/17 11/14/17 11/15/17 23:59 23:59 23:59 23:59 Intake Total 470 120 Output Total 1000 100 Balance -530 20 Weight 240 lb 240 lb Constitutional: No Distress, Calm Neck: Supple Negative JVD Respiratory: Diminished Breath Sounds at the bases Cardiovascular: S1 S2 Regular rate Rhythm Grade 1/6 SM Gastrointestinal: Soft Benign Normal Bowel Sounds Ext: No Edema Labs: CBC, BMP 11/15/17 06:00 11/15/17 06:00 Troponin, BNP 11/14/17 12:15 Troponin I 0.21 H Assessment/Plan ASSESSMENT: 1. CAD post multi-vessel PCI stent angina pectoris, with evidence of demand ischemic injury, stable on medical therapy 2. Diastolic LV dysfunction with chronic class I NYHA classification LV failure , compensated/euvolemic 3. Paroxysmal atrial fibrillation previous history of RFA, [id number] score of 5, currently on A/C therapy NOAC's/Eliquis 4. HTN 5. DM 6. Hyperlipidemia 7. History of KATJA 8. Chronic kidney disease 9. Obstructive uropathy related to BPH with uro-sepsis, hematuria 10. History of nephrolithiasis 11. Anemia PLAN: 1. Continue Lopressor and titrate dosage, hemodynamics permitting 2. Continue Amlodipine, hemodynamics permitting 3. Ideally ARBS to be resumed pending renal function recovery, hemodynamics permitting 4. Continue Imdur, hemodynamics permitting 5. Continue Ranexa 6. Continue Eliquis and resume ASA with caution and close monitoring of CBC maintaining Hg equal or > 8.0, if hematuria persists therapy may need to be withheld 7. Antibiotics as per the primary team 8. Aubrey Chamorro from this AM, and plan to manage conservatively medically considering his co-morbidities specifically CKD 9. As outlined repeat echocardiography to evaluate LV size and function martin aTpia M.D.
[2017-11-15] MEDS: RANITIDINE HCL 150 MG TABLET (FP) PO SCH (10:09)
[2017-11-15] MEDS: METOPROLOL TARTRATE 25 MG TABLET (FP) PO SCH ×2 (10:09→22:21)
[2017-11-15] MEDS: RANOLAZINE E.R. 500 MG TABLET (FP) PO SCH ×2 (10:09→22:21)
[2017-11-15] MEDS: ISOSORBIDE MONONITRATE 60 MG TAB.SR.24H (FP) PO SCH (10:09)
[2017-11-15] MEDS: ASPIRIN COATED 81 MG TABLET.EC PO SCH (10:10)
[2017-11-15] MEDS: APIXABAN 5 MG TABLET PO SCH ×2 (10:10→22:21)
[2017-11-15] MEDS: TAMSULOSIN HCL 0.4 MG CAP.ER.24H (FP) PO SCH (10:10)
[2017-11-15] MEDS: amLODIPine BESYLATE 2.5 MG TABLET (FP) PO SCH (10:10)
[2017-11-15] MEDS: ERTAPENEM SODIUM 0.5 GM in SODIUM CHLORIDE 50 ML IVPB SCH (17:51)
--- NOTE | 2017-11-15 20:54 | PN ---
Progress Note, Physician History of Present Illness: Seated in bed C/O R flank pain No fever/chills [place] in place + gross hematuria - Current Medication List Current Medications: Active Medications Amlodipine Besylate (Norvasc -) 2.5 mg PO DAILY [facility] Last Admin: 11/15/17 10:10 Dose: 2.5 mg Apixaban (Eliquis -) 5 mg PO BID [facility] Last Admin: 11/15/17 10:10 Dose: 5 mg Aspirin (Ecotrin -) 81 mg PO DAILY [facility] Last Admin: 11/15/17 10:10 Dose: 81 mg Gemfibrozil (Lopid -) 600 mg PO BIDAC [facility] Last Admin: 11/15/17 17:51 Dose: 600 mg Ertapenem 0.5 gm/ Sodium (Chloride) 50 mls @ 100 mls/hr IVPB Q24H [facility] PRN Reason: Protocol Last Admin: 11/15/17 17:51 Dose: 100 mls/hr Insulin Aspart (Novolog Vial Sliding Scale -) 1 vial SQ ACHS [facility] PRN Reason: Protocol Last Admin: 11/15/17 17:50 Dose: 8 unit Insulin Detemir (Levemir Vial) 20 units SQ BID@0700,2200 [facility] Last Admin: 11/15/17 06:03 Dose: 20 units Isosorbide Mononitrate (Imdur -) 60 mg PO DAILY [facility] Last Admin: 11/15/17 10:09 Dose: 60 mg Metoprolol Tartrate (Lopressor -) 25 mg PO BID [facility] Last Admin: 11/15/17 10:09 Dose: 25 mg Nitroglycerin (Nitrostat -) 0.4 mg SL DAILY PRN PRN Reason: FOR CHEST PAIN Non-Formulary Medication (Colesevelam Hcl [Welchol (Nf)]) 625 mg PO BID [facility] Ranitidine HCl (Zantac -) 150 mg PO DAILY [facility] Last Admin: 11/15/17 10:09 Dose: 150 mg Ranolazine (Ranexa -) 500 mg PO BID [facility] Last Admin: 11/15/17 10:09 Dose: 500 mg Tamsulosin HCl (Flomax -) 0.4 mg PO DAILY@0830 [facility] Last Admin: 11/15/17 10:10 Dose: 0.4 mg - Objective Vital Signs: Vital Signs Temperature 97.6 F 11/15/17 18:21 Pulse Rate 58 L 11/15/17 18:21 Respiratory Rate 18 11/15/17 18:21 Blood Pressure 144/65 11/15/17 18:21 O2 Sat by Pulse Oximetry (%) 95 11/15/17 15:00 Constitutional: Yes: No Distress Eyes: Yes: Conjunctiva Clear Cardiovascular: Yes: Regular Rate and Rhythm, S1, S2 Respiratory: Yes: CTA Bilaterally Gastrointestinal: Yes: Normal Bowel Sounds, Soft Genitourinary: Yes: CVA Tenderness - Right Labs: CBC, BMP 11/15/17 06:00 11/15/17 06:00 Assessment/Plan Recurrent UTI Hx ESBL Gross hematuria Continue empiric ertapenem evaluation
[2017-11-15] MEDS ORDERED: INSULIN DETEMIR 100 UNITS/ML MDV SQ ONE (22:14)
[2017-11-16] MEDS: INSULIN SLIDING SCALE (NOVOLOG) 1 VIAL SQ SCH ×4 (06:38→22:12)
[2017-11-16] MEDS: GEMFIBROZIL 600 MG TABLET (FP) PO SCH ×2 (06:38→16:44)
[2017-11-16] MEDS: INSULIN DETEMIR 100 UNITS/ML MDV SQ SCH ×2 (06:39→22:13)
[2017-11-16 08:00] LABS: BASO % 0.9 % (0-2.0); EOS % 3.4 % (0-4.5); HEMATOCRIT 35.3 % (35.4-49); HEMOGLOBIN 11.7 GM/dL (11.7-16.9); LYMPH % 37.9 % (8-40); MCH 31.1 pg (25.7-33.7); MEAN CELL VOLUME 94.3 fl (80-96); MONO % 8.9 % (3.8-10.2); NEUT % 48.9 % (42.8-82.8); PLATELET COUNT 289 K/MM3 (134-434); RBC 3.75 M/mm3 (4.00-5.60); RDW 13.6 % (11.9-15.9); WHITE BLOOD COUNT 5.9 K/mm3 (4.0-10.0)
--- NOTE | 2017-11-16 08:01 | PN ---
Progress Note (short form) - Note Progress Note: Chief Complaint: Events noted, notes reviewed, denies any recurrent chest pain, denies any dyspnea, reports persistent right flank discomfort History of Present Illness: Seen and examined ion telemetry. Events noted, notes reviewed, denies any recurrent chest pain, denies any dyspnea, reports persistent right flank discomfort Echocardiography dated 12/21/2015 normal LV size and function, with mild TR and GA MPI study dated 12/21/2015 revealed small-moderate size apical defect compatible with mild ischemia with preserved LV function Medications: Current Medications Amlodipine Besylate (Norvasc -) 2.5 mg PO DAILY [facility] Last Admin: 11/15/17 10:10 Dose: 2.5 mg Apixaban (Eliquis -) 5 mg PO BID [facility] Last Admin: 11/15/17 22:21 Dose: 5 mg Aspirin (Ecotrin -) 81 mg PO DAILY [facility] Last Admin: 11/15/17 10:10 Dose: 81 mg Gemfibrozil (Lopid -) 600 mg PO BIDAC [facility] Last Admin: 11/16/17 06:38 Dose: 600 mg Ertapenem 0.5 gm/ Sodium (Chloride) 50 mls @ 100 mls/hr IVPB Q24H [facility] PRN Reason: Protocol Last Admin: 11/15/17 17:51 Dose: 100 mls/hr Insulin Aspart (Novolog Vial Sliding Scale -) 1 vial SQ ACHS [facility] PRN Reason: Protocol Last Admin: 11/16/17 06:38 Dose: 4 unit Insulin Detemir (Levemir Vial) 20 units SQ BID@0700,2200 [facility] Last Admin: 11/16/17 06:39 Dose: 20 units Isosorbide Mononitrate (Imdur -) 60 mg PO DAILY [facility] Last Admin: 11/15/17 10:09 Dose: 60 mg Metoprolol Tartrate (Lopressor -) 25 mg PO BID [facility] Last Admin: 11/15/17 22:21 Dose: 25 mg Nitroglycerin (Nitrostat -) 0.4 mg SL DAILY PRN PRN Reason: FOR CHEST PAIN Non-Formulary Medication (Colesevelam Hcl [Welchol (Nf)]) 625 mg PO BID [facility] Ranitidine HCl (Zantac -) 150 mg PO DAILY [facility] Last Admin: 11/15/17 10:09 Dose: 150 mg Ranolazine (Ranexa -) 500 mg PO BID [facility] Last Admin: 11/15/17 22:21 Dose: 500 mg Tamsulosin HCl (Flomax -) 0.4 mg PO DAILY@0830 [facility] Last Admin: 11/15/17 10:10 Dose: 0.4 mg Review of Systems Cardiovascular: As noted above Respiratory: denies: denies: Cough or Sputum Production Gastrointestinal: denies: Nausea, Vomiting, Diarrhea, Constipation but reports Right Flank Discomfort Musculoskeletal: No Symptoms Reported Endocrine: No Symptoms Reported Vital Signs: Last Vital Signs Temp Pulse Resp BP Pulse Ox 97.8 F 60 16 143/73 95 11/16/17 06:00 11/16/17 06:00 11/16/17 06:00 11/16/17 06:00 11/15/17 21:00 Intake & Output 11/13/17 11/14/17 11/15/17 11/16/17 23:59 23:59 23:59 23:59 Intake Total 470 220 150 Output Total 1000 1000 400 Balance -530 -780 -250 Weight 240 lb 240 lb Constitutional: No Distress, Calm Neck: Supple Negative JVD Respiratory: Clear to A&P Bilaterally Cardiovascular: S1 S2 Regular rate Rhythm Grade 1/6 SM Gastrointestinal: Soft Benign Normal Bowel Sounds Ext: No Edema Labs: Blood test from this AM pending CBC, BMP 11/15/17 06:00 11/15/17 06:00 Troponin, BNP 11/15/17 11/15/17 06:00 06:30 Troponin I 0.23 H Cancelled Assessment/Plan ASSESSMENT: 1. CAD post multi-vessel PCI stent angina pectoris, with evidence of demand ischemic injury, stable on medical therapy 2. Diastolic LV dysfunction with chronic class I NYHA classification LV failure , compensated/euvolemic 3. Paroxysmal atrial fibrillation previous history of RFA, [id number] score of 5, currently on A/C therapy NOAC's/Eliquis 4. HTN 5. DM 6. Hyperlipidemia 7. History of KATJA 8. Chronic kidney disease 9. Obstructive uropathy related to BPH with uro-sepsis, hematuria 10. History of nephrolithiasis 11. Anemia PLAN: 1. Continue Lopressor and titrate dosage, hemodynamics permitting 2. Continue Amlodipine, hemodynamics permitting 3. Ideally ARBS to be resumed pending renal function recovery, hemodynamics permitting 4. Continue Imdur, hemodynamics permitting 5. Continue Ranexa 6. Continue Eliquis and ASA with caution and close monitoring of CBC maintaining Hg equal or > 8.0, if hematuria persists therapy may need to be withheld 7. Antibiotics as per the primary team 8. As outlined repeat echocardiography to evaluate LV size and function martin Tapia M.D.
[2017-11-16 08:23] LABS: ANION GAP 11 (8-16); BLOOD UREA NITROGEN 18 mg/dL (7-18); CALCIUM 8.5 mg/dL (8.5-10.1); CHLORIDE 107 mmol/L (98-107); CO2 22 mmol/L (21-32); GLUCOSE,RANDOM 162 mg/dL (74-106); MAGNESIUM 1.6 mg/dL (1.8-2.4); SODIUM 140 mmol/L (136-145)
[2017-11-16 08:28] LABS: ALK PHOS 134 U/L (45-117); BILIRUBIN,TOTAL 0.4 mg/dL (0.2-1.0); CREATININE 1.3 mg/dL (0.7-1.3); SGOT/AST 9 U/L (15-37); SGPT/ALT 13 U/L (12-78); TOT PROT 6.8 g/dl (6.4-8.2)
--- NOTE | 2017-11-16 09:53 | CON.GU ---
Consult Consult Specialty:: Referred by:: medicine Reason for Consultation:: UTI, urinary retention, hematuria - History of Present Illness Chief Complaint: UTI, urinary retention, hematuria History of Present Illness: 72 year old male with history of bladder stones who presents with urinary retention and gross hematuria. Last urine cultures had been positive for yeast. CT findings noted. Today the urine is clear and the paitent is not in pain. - History Source History Provided By: Patient - Past Medical History Cardio/Vascular: Yes: AFIB (not on AC), CAD (with stent), HTN, Hyperlipdemia Pulmonary: Yes: Sleep Apnea Hepatobiliary: Yes: Cholelithiasis Renal/: Yes: Renal Inusuff, BPH, Renal Calculi Endocrine: Yes: Diabetes Mellitus - Past Surgical History Past Surgical History: Yes: Appendectomy, Joint Replacement (Hip surgery for fracture right femur, ORIF right ankle, hip replacement) - Alcohol/Substance Use Hx Alcohol Use: No - Smoking History Smoking history: Former smoker Have you smoked in the past 12 months: No Aproximately how many cigarettes per day: 0 If you are a former smoker, when did you quit?: 1995 - Social History Usual Living Arrangement: With Spouse ADL: Independent Home Medications - Allergies Allergies/Adverse Reactions: Allergies Allergy/AdvReac Type Severity Reaction Status Date / Time [id number] Reductase Allergy Unknown Verified 11/13/17 13:41 Inhibitor lactose AdvReac Verified 11/13/17 13:41 - Home Medications Home Medications: Ambulatory Orders Tamsulosin HCl [Flomax -] 0.4 mg PO DAILY #10 capsule 06/01/16 Gemfibrozil [Lopid] 600 mg PO BID 10/14/16 Losartan Potassium [Cozaar -] 50 mg PO DAILY 10/14/16 Nitroglycerin [Nitrostat] 0.4 mg SL PRN PRN 10/14/16 Ranolazine [Ranexa -] 500 mg PO BID tab 11/01/16 Apixaban [Eliquis -] 5 mg PO BID #30 tablet 11/20/16 Cetirizine HCl [Zyrtec -] 10 mg PO DAILY #30 tablet 11/20/16 Colesevelam HCl [Welchol (Nf)] 625 mg PO BID #30 tablet 11/20/16 Ranitidine [Zantac -] 150 mg PO DAILY #20 tablet 11/20/16 Insulin Sliding Scale [Novolog Vial Sliding Scale -] 0 units SQ QID PRN Amlodipine Besylate [Norvasc -] 2.5 mg PO DAILY #30 tablet 02/10/17 Isosorbide Mononitrate [Imdur -] 30 mg PO DAILY #30 tab 02/10/17 Metoprolol Tartrate [Lopressor -] 25 mg PO BID #60 tablet 02/10/17 Insulin (Levemir) [Levemir Vial] 20 units SQ BID 11/12/17 Sulfamethoxazole/Trimethoprim [Bactrim Ds -] 1 tab PO BID #14 tablet 11/12/17 Family Disease History - Family Disease History Family Disease History: Diabetes: Grandparent Review of Systems - Review of Systems Genitourinary: reports: Hematuria Physical Exam- Vital Signs: Vital Signs Temperature 97.8 F 11/16/17 06:00 Pulse Rate 60 11/16/17 06:00 Respiratory Rate 16 11/16/17 06:00 Blood Pressure 143/73 11/16/17 06:00 O2 Sat by Pulse Oximetry (%) 95 11/15/17 21:00 Gastrointestinal: Yes: WNL, Normal Bowel Sounds, Soft Renal/: Yes: [place] Present. No: Hematuria Labs: CBC, BMP 11/16/17 06:30 11/16/17 06:30 Imaging - Results Cat Scan: Report Reviewed Problem List - Problems (1) Hematuria, gross Code(s): R31.0 - GROSS HEMATURIA (2) Urinary retention Assessment/Plan: urine is clear today. active followed as outpatient by Dr. Edmondson. trial of void Code(s): R33.9 - RETENTION OF URINE, UNSPECIFIED
[2017-11-16] MEDS: APIXABAN 5 MG TABLET PO SCH ×2 (10:14→22:12)
[2017-11-16] MEDS: amLODIPine BESYLATE 2.5 MG TABLET (FP) PO SCH (10:14)
[2017-11-16] MEDS: RANOLAZINE E.R. 500 MG TABLET (FP) PO SCH ×2 (10:14→22:12)
[2017-11-16] MEDS: ASPIRIN COATED 81 MG TABLET.EC PO SCH (10:14)
[2017-11-16] MEDS: TAMSULOSIN HCL 0.4 MG CAP.ER.24H (FP) PO SCH (10:14)
[2017-11-16] MEDS: ISOSORBIDE MONONITRATE 60 MG TAB.SR.24H (FP) PO SCH (10:14)
[2017-11-16] MEDS: RANITIDINE HCL 150 MG TABLET (FP) PO SCH (10:14)
[2017-11-16] MEDS: METOPROLOL TARTRATE 25 MG TABLET (FP) PO SCH ×2 (10:14→22:12)
--- NOTE | 2017-11-16 16:15 | PN ---
Progress Note, Physician History of Present Illness: Seated in bed C/O R flank pain [place] catheter removed No fever/chills WBC WNL Cultures negative - Current Medication List Current Medications: Active Medications Amlodipine Besylate (Norvasc -) 2.5 mg PO DAILY [facility] Last Admin: 11/16/17 10:14 Dose: 2.5 mg Apixaban (Eliquis -) 5 mg PO BID [facility] Last Admin: 11/16/17 10:14 Dose: 5 mg Aspirin (Ecotrin -) 81 mg PO DAILY [facility] Last Admin: 11/16/17 10:14 Dose: 81 mg Gemfibrozil (Lopid -) 600 mg PO BIDAC [facility] Last Admin: 11/16/17 06:38 Dose: 600 mg Ertapenem 0.5 gm/ Sodium (Chloride) 50 mls @ 100 mls/hr IVPB Q24H [facility] PRN Reason: Protocol Last Admin: 11/15/17 17:51 Dose: 100 mls/hr Insulin Aspart (Novolog Vial Sliding Scale -) 1 vial SQ ACHS [facility] PRN Reason: Protocol Last Admin: 11/16/17 11:31 Dose: 4 unit Insulin Detemir (Levemir Vial) 20 units SQ BID@0700,2200 [facility] Last Admin: 11/16/17 06:39 Dose: 20 units Isosorbide Mononitrate (Imdur -) 60 mg PO DAILY [facility] Last Admin: 11/16/17 10:14 Dose: 60 mg Metoprolol Tartrate (Lopressor -) 25 mg PO BID [facility] Last Admin: 11/16/17 10:14 Dose: 25 mg Nitroglycerin (Nitrostat -) 0.4 mg SL DAILY PRN PRN Reason: FOR CHEST PAIN Non-Formulary Medication (Colesevelam Hcl [Welchol (Nf)]) 625 mg PO BID [facility] Ranitidine HCl (Zantac -) 150 mg PO DAILY [facility] Last Admin: 11/16/17 10:14 Dose: 150 mg Ranolazine (Ranexa -) 500 mg PO BID [facility] Last Admin: 11/16/17 10:14 Dose: 500 mg Tamsulosin HCl (Flomax -) 0.4 mg PO DAILY@0830 [facility] Last Admin: 11/16/17 10:14 Dose: 0.4 mg - Objective Vital Signs: Vital Signs Temperature 97.8 F 11/16/17 13:42 Pulse Rate 56 L 11/16/17 13:42 Respiratory Rate 16 11/16/17 13:42 Blood Pressure 131/61 11/16/17 13:42 O2 Sat by Pulse Oximetry (%) 96 11/16/17 09:00 Constitutional: Yes: No Distress Eyes: Yes: Conjunctiva Clear Cardiovascular: Yes: Regular Rate and Rhythm, S1, S2 Respiratory: Yes: CTA Bilaterally Gastrointestinal: Yes: Normal Bowel Sounds, Soft. No: Tenderness Genitourinary: Yes: CVA Tenderness - Right Labs: CBC, BMP 11/16/17 06:30 11/16/17 06:30 Assessment/Plan Recurrent UTI Hx ESBL Gross hematuria [place] removed- trial of voiding evaluation appreciated D/C ertapenem Macrobid 100mg po bid x 7d in am
--- NOTE | 2017-11-16 17:04 | PN ---
Physical Exam: SUBJECTIVE: Patient seen and examined. [place] removed. OBJECTIVE: Vital Signs Period Temp Pulse Resp BP Sys/Crawford Pulse Ox Last 24 Hr 97.6 F-98.0 F 56-64 16-18 131-147/56-73 95-96 GENERAL: The patient is awake, alert, and fully oriented, in no acute distress. LUNGS: Breath sounds equal, clear to auscultation bilaterally, no wheezes, no crackles, no accessory muscle use. HEART: Regular rate and rhythm, S1, S2 ABDOMEN: Soft, nontender, nondistended, normoactive bowel sounds, no guarding, no rebound EXTREMITIES: 2+ pulses, warm, well-perfused, no edema. NEUROLOGICAL: Cranial nerves II through XII grossly intact. Normal speech. Laboratory Results - last 24 hr 11/15/17 11/15/17 11/16/17 17:03 22:18 06:30 WBC 5.9 RBC 3.75 L Hgb 11.7 Hct 35.3 L MCV 94.3 MCH 31.1 MCHC 33.0 RDW 13.6 Plt Count 289 MPV 9.0 Neutrophils % 48.9 Lymphocytes % 37.9 Monocytes % 8.9 Eosinophils % 3.4 Basophils % 0.9 Sodium Potassium Chloride Carbon Dioxide Anion Gap BUN Creatinine Creat Clearance w eGFR POC Glucometer 303 364 Random Glucose Calcium Magnesium Total Bilirubin AST ALT Alkaline Phosphatase Total Protein Albumin 11/16/17 11/16/17 11/16/17 06:30 06:34 11:30 WBC RBC Hgb Hct MCV MCH MCHC RDW Plt Count MPV Neutrophils % Lymphocytes % Monocytes % Eosinophils % Basophils % Sodium 140 Potassium 4.0 Chloride 107 Carbon Dioxide 22 Anion Gap 11 BUN 18 Creatinine 1.3 Creat Clearance w eGFR 54.11 POC Glucometer 209 206 Random Glucose 162 H Calcium 8.5 Magnesium 1.6 L Total Bilirubin 0.4 AST 9 L ALT 13 Alkaline Phosphatase 134 H Total Protein 6.8 Albumin 3.0 L Current Medications Generic Name Dose Route Start Last Admin Trade Name Freq PRN Reason Stop Dose Admin Amlodipine Besylate 2.5 mg 11/14/17 10:00 11/16/17 10:14 Norvasc - PO 2.5 mg DAILY [facility] Administration Apixaban 5 mg 11/13/17 22:00 11/16/17 10:14 Eliquis - PO 5 mg BID [facility] Administration Aspirin 81 mg 11/14/17 10:00 11/16/17 10:14 Ecotrin - PO 81 mg DAILY [facility] Administration Gemfibrozil 600 mg 11/14/17 07:00 11/16/17 16:44 Lopid - PO 600 mg BIDAC [facility] Administration Ertapenem 0.5 gm/ Sodium 50 mls @ 100 mls/hr 11/14/17 17:00 11/15/17 17:51 Chloride IVPB 100 mls/hr Q24H [facility] Administration Protocol Insulin Aspart 1 vial 11/14/17 11:00 11/16/17 16:45 Novolog Vial Sliding Scale - SQ 4 unit ACHS [facility] Administration Protocol Insulin Detemir 20 units 11/13/17 22:00 11/16/17 06:39 Levemir Vial SQ 20 units BID@0700,2200 [facility] Administration Isosorbide Mononitrate 60 mg 11/14/17 10:33 11/16/17 10:14 Imdur - PO 60 mg DAILY [facility] Administration Metoprolol Tartrate 25 mg 11/13/17 22:00 11/16/17 10:14 Lopressor - PO 25 mg BID [facility] Administration Nitroglycerin 0.4 mg 11/13/17 20:33 Nitrostat - SL DAILY PRN FOR CHEST PAIN Non-Formulary Medication 625 mg 11/13/17 22:00 Colesevelam Hcl [Welchol (Nf)] PO BID [facility] Ranitidine HCl 150 mg 11/14/17 10:00 11/16/17 10:14 Zantac - PO 150 mg DAILY [facility] Administration Ranolazine 500 mg 11/13/17 22:00 11/16/17 10:14 Ranexa - PO 500 mg BID [facility] Administration Tamsulosin HCl 0.4 mg 11/14/17 08:30 11/16/17 10:14 Flomax - PO 0.4 mg DAILY@0830 [facility] Administration ASSESSMENT/PLAN 72 year-old male with a PMH significant for HTN, HLD, CAD s/p stents, paroxysmal afib on Eliquis, diastolic heart failure, IDDM, CKD, BPH, urinary retention, recurrent E.coli ESBL UTIs, and nephrolithiasis. Admitted for LORY, UTI, and chest pain. Acute on chronic renal insufficiency --Cr improved 3.0-->2.0-->1.5, baseline 1.3 --possible obstructive uropathy from enlarged prostate v. FeNa 0.5% indicates prerenal Right flank pain h/o nephrolithiasis s/p left ureteral stent and left nephrostomy tube --CT x 2 shows no hydroureter, no renal or ureteral calculi UTI h/o recurrent E.coli ESBL UTIs --impressive pyruia; urine culture negative but ceftriaxone x 1 dose had been given prior to collection --per ID, last dose ertapenem today; can switch tomorrow to macrobid 100mg PO BID x 7 days BPH h/o urinary retention --continue flomax --coughlin d'c'd; ongoing voiding trial --follow up with Dr. Mar as outpatient Angina pectoris Coronary artery disease --flat trending troponins 0.18-->0.20-->0.21, likely demand ischemia, stable on medical therapy --continue metoprolol, Ranexa, isosorbide --restarted ASA per cardiology --cardiology following Diastolic heart failure --07/08/16 Echo: LV normal; RV normal; LAE; mild MR; mild TR; pHTN; trace PI --12/21/15 Stress: small to moderate size apical defect consistent with mild ischemia with preserved LV function --11/16/17 Echo: LV borderline dilated, LV function normal; RV normal; BLAE; mild MR; trace to mild TR; trace AI --consider restarting Losartan tomorrow if Cr remains stable Paroxysmal afib --rate well-controlled, continue metoprolol, amlodipine --continue Eliquis Hypertension --continue metoprolol, amlodipine Hyperlipidemia --on Gemfibrozil, Welchol IDDM --Levemir BID --Novolog sliding scale coverage Hypomagnesemia, resolved FEN Fluids: PO intake adequate Electrolytes: replete as indicated Nutrition: diabetic, low sodium DVT prophylaxis: on Eliquis Physical therapy evaluation Dispo: continues to require inpatient care. Full Code. Visit type - Emergency Visit Emergency Visit: Yes ED Registration Date: 11/13/17 Care time: The patient presented to the Emergency Department on the above date and was hospitalized for further evaluation of their emergent condition. - New Patient This patient is new to me today: No - Critical Care Critical Care patient: No
[2017-11-16] MEDS: ERTAPENEM SODIUM 0.5 GM in SODIUM CHLORIDE 100 ML IVPB SCH (18:29)
[2017-11-17] MEDS: INSULIN SLIDING SCALE (NOVOLOG) 1 VIAL SQ SCH ×3 (06:16→17:06)
[2017-11-17] MEDS: INSULIN DETEMIR 100 UNITS/ML MDV SQ SCH (06:17)
[2017-11-17] MEDS: GEMFIBROZIL 600 MG TABLET (FP) PO SCH ×2 (06:17→16:59)
[2017-11-17] MEDS ORDERED: INSULIN DETEMIR 100 UNITS/ML MDV SQ ONE (06:49)
[2017-11-17] MEDS ORDERED: INSULIN (NOVOLOG) ASPART 100 UNITS/ML 10ML VIAL ONE ×2 (06:49→18:46)
[2017-11-17] MEDS ORDERED: NITROFURANTOIN MACROCRYSTAL 50 MG CAPSULE (FP) PO STA ×2 (07:35→10:14)
--- NOTE | 2017-11-17 07:38 | DS ---
Physical Exam: SUBJECTIVE: Patient seen and examined OBJECTIVE: Vital Signs Period Temp Pulse Resp BP Sys/Crawford Pulse Ox Last 24 Hr 97.7 F-98.0 F 52-61 16-20 129-159/61-80 96-96 PHYSICAL EXAM GENERAL: The patient is awake, alert, and fully oriented, in no acute distress. HEAD: Normal with no signs of trauma. EYES: PERRL, extraocular movements intact, sclera anicteric, conjunctiva clear. ENT: Ears normal, nares patent, oropharynx clear without exudates, moist mucous membranes. NECK: Trachea midline, full range of motion, supple. LUNGS: Breath sounds equal, clear to auscultation bilaterally, no wheezes, no crackles, no accessory muscle use. HEART: Regular rate and rhythm, S1, S2 without murmur, rub or gallop. ABDOMEN: Soft, nontender, nondistended, normoactive bowel sounds, no guarding, no rebound, no hepatosplenomegaly, no masses. EXTREMITIES: 2+ pulses, warm, well-perfused, no edema. NEUROLOGICAL: Cranial nerves II through XII grossly intact. Normal speech, gait not observed. PSYCH: Normal mood, normal affect. SKIN: Warm, dry, normal turgor, no rashes or lesions noted. LABS Laboratory Results - last 24 hr 11/16/17 11/16/17 11/16/17 06:30 06:30 11:30 WBC 5.9 RBC 3.75 L Hgb 11.7 Hct 35.3 L MCV 94.3 MCH 31.1 MCHC 33.0 RDW 13.6 Plt Count 289 MPV 9.0 Neutrophils % 48.9 Lymphocytes % 37.9 Monocytes % 8.9 Eosinophils % 3.4 Basophils % 0.9 Sodium 140 Potassium 4.0 Chloride 107 Carbon Dioxide 22 Anion Gap 11 BUN 18 Creatinine 1.3 Creat Clearance w eGFR 54.11 POC Glucometer 206 Random Glucose 162 H Calcium 8.5 Magnesium 1.6 L Total Bilirubin 0.4 AST 9 L ALT 13 Alkaline Phosphatase 134 H Total Protein 6.8 Albumin 3.0 L 11/16/17 11/16/17 11/17/17 16:44 20:30 05:53 WBC RBC Hgb Hct MCV MCH MCHC RDW Plt Count MPV Neutrophils % Lymphocytes % Monocytes % Eosinophils % Basophils % Sodium Potassium Chloride Carbon Dioxide Anion Gap BUN Creatinine Creat Clearance w eGFR POC Glucometer 214 374 198 Random Glucose Calcium Magnesium Total Bilirubin AST ALT Alkaline Phosphatase Total Protein Albumin HOSPITAL COURSE: Date of Admission:11/13/17 Date of Discharge: 11/17/17 Left hip xray unremarkable Minutes to complete discharge: 35 Discharge Summary Reason For Visit: CKD UTI CHEST PAIN Current Active Problems CKD (chronic kidney disease) (Acute) Chest pain (Acute) UTI (urinary tract infection) (Acute) Condition: Stable - Instructions Diet, Activity, Other Instructions: A prescription has been sent to your pharmacy for macrobid which is an antibiotic. Take the first pill tonight. Make sure you FINISH all the medication. You will need to follow up with your urologist, Dr. Au. Please call his office today to make an appointment. Return to the emergency department for any new or worsening symptoms. Referrals: Daniel Edmondson MD [Staff Physician] - Disposition: HOME - Home Medications Comprehensive Discharge Medication List: Ambulatory Orders Tamsulosin HCl [Flomax -] 0.4 mg PO DAILY #10 capsule 06/01/16 Gemfibrozil [Lopid] 600 mg PO BID 10/14/16 Losartan Potassium [Cozaar -] 50 mg PO DAILY 10/14/16 Nitroglycerin [Nitrostat] 0.4 mg SL PRN PRN 10/14/16 Ranolazine [Ranexa -] 500 mg PO BID tab 11/01/16 Apixaban [Eliquis -] 5 mg PO BID #30 tablet 11/20/16 Colesevelam HCl [Welchol (Nf)] 625 mg PO BID #30 tablet 11/20/16 Ranitidine [Zantac -] 150 mg PO DAILY #20 tablet 11/20/16 Insulin Sliding Scale [Novolog Vial Sliding Scale -] 0 units SQ QID PRN Amlodipine Besylate [Norvasc -] 2.5 mg PO DAILY #30 tablet 02/10/17 Isosorbide Mononitrate [Imdur -] 30 mg PO DAILY #30 tab 02/10/17 Metoprolol Tartrate [Lopressor -] 25 mg PO BID #60 tablet 02/10/17 Insulin (Levemir) [Levemir Vial] 20 units SQ BID 11/12/17 Nitrofurantoin Monohyd/M-Cryst [Macrobid -] 100 mg PO BID #13 capsule 11/17/17 This patient is new to me today: No Emergency Visit: Yes ED Registration Date: 11/13/17 Care time: The patient presented to the Emergency Department on the above date and was hospitalized for further evaluation of their emergent condition. Critical Care patient: No - Discharge Referral Referred to [facility] No
--- NOTE | 2017-11-17 07:38 | PN ---
Progress Note (short form) - Note Progress Note: Chief Complaint: Events noted, notes reviewed, denies any chest pain, denies any dyspnea, reports persistent right flank discomfort History of Present Illness: Seen and examined ion telemetry. Events noted, notes reviewed, denies any chest pain, denies any dyspnea, reports persistent right flank discomfort Echocardiography yesterday revealed normal LV size and function, bi-atrial dilatation, with mild MR Echocardiography dated 12/21/2015 normal LV size and function, with mild TR and AR MPI study dated 12/21/2015 revealed small-moderate size apical defect compatible with mild ischemia with preserved LV function Medications: Current Medications Amlodipine Besylate (Norvasc -) 2.5 mg PO DAILY [facility] [place] Last Admin: 11/16/17 10:14 Dose: 2.5 mg Apixaban (Eliquis -) 5 mg PO BID [facility] [place] Last Admin: 11/16/17 22:12 Dose: 5 mg Aspirin (Ecotrin -) 81 mg PO DAILY [facility] [place] Last Admin: 11/16/17 10:14 Dose: 81 mg Gemfibrozil (Lopid -) 600 mg PO BIDAC [facility] [place] Last Admin: 11/17/17 06:17 Dose: 600 mg Ertapenem 0.5 gm/ Sodium (Chloride) 100 mls @ 100 mls/hr IVPB Q24H [facility] [place] PRN Reason: Protocol Last Admin: 11/16/17 18:29 Dose: 100 mls/hr Insulin Aspart (Novolog Vial Sliding Scale -) 1 vial SQ ACHS [facility] [place] PRN Reason: Protocol Last Admin: 11/17/17 06:16 Dose: 2 unit Insulin Detemir (Levemir Vial) 20 units SQ BID@0700,2200 [facility] [place] Last Admin: 11/17/17 06:17 Dose: 20 units Isosorbide Mononitrate (Imdur -) 60 mg PO DAILY [facility] [place] Last Admin: 11/16/17 10:14 Dose: 60 mg Metoprolol Tartrate (Lopressor -) 25 mg PO BID [facility] [place] Last Admin: 11/16/17 22:12 Dose: 25 mg Nitrofurantoin Macrocrystals (Macrodantin -) 100 mg PO ONCE STA Stop: 11/17/17 07:36 Nitroglycerin (Nitrostat -) 0.4 mg SL DAILY PRN PRN Reason: FOR CHEST PAIN Non-Formulary Medication (Colesevelam Hcl [Welchol (Nf)]) 625 mg PO BID [facility] [place] Ranitidine HCl (Zantac -) 150 mg PO DAILY [facility] [place] Last Admin: 11/16/17 10:14 Dose: 150 mg Ranolazine (Ranexa -) 500 mg PO BID [facility] [place] Last Admin: 11/16/17 22:12 Dose: 500 mg Tamsulosin HCl (Flomax -) 0.4 mg PO DAILY@0830 [facility] [place] Last Admin: 11/16/17 10:14 Dose: 0.4 mg Review of Systems Cardiovascular: As noted above Respiratory: denies: denies: Cough or Sputum Production Gastrointestinal: denies: Nausea, Vomiting, Diarrhea, Constipation but reports Persistent Right Flank Discomfort Musculoskeletal: No Symptoms Reported Endocrine: No Symptoms Reported Vital Signs: Last Vital Signs Temp Pulse Resp BP Pulse Ox 97.9 F 61 16 159/80 96 11/17/17 06:00 11/17/17 06:00 11/17/17 06:00 11/17/17 06:00 11/16/17 21:00 Intake & Output 11/14/17 11/15/17 11/16/17 11/17/17 23:59 23:59 23:59 23:59 Intake Total 411 716 9375 200 Output Total 1000 1000 700 150 Balance -530 -780 760 50 Weight 240 lb Constitutional: No Distress, Calm Neck: Supple Negative JVD Respiratory: Clear to A&P Bilaterally Cardiovascular: S1 S2 Regular rate Rhythm Grade 1/6 SM Gastrointestinal: Soft Benign Normal Bowel Sounds Ext: No Edema Labs: CBC, BMP 11/16/17 06:30 11/16/17 06:30 Assessment/Plan ASSESSMENT: 1. CAD post multi-vessel PCI stent angina pectoris, with evidence of demand ischemic injury, stable on medical therapy 2. Diastolic LV dysfunction with chronic class I NYHA classification LV failure , compensated/euvolemic 3. Paroxysmal atrial fibrillation previous history of RFA, [id number] score of 5, currently on A/C therapy NOAC's/Eliquis 4. HTN 5. DM 6. Hyperlipidemia 7. History of KATJA 8. Chronic kidney disease 9. Obstructive uropathy related to BPH with uro-sepsis, hematuria resolved 10. History of nephrolithiasis 11. Anemia PLAN: 1. Continue Lopressor and titrate dosage, hemodynamics permitting 2. Continue Amlodipine, hemodynamics permitting 3. Resume Cozaar with close mentoring of renal function recovery, hemodynamics permitting 4. Continue Imdur, hemodynamics permitting 5. Continue Ranexa 6. Continue Eliquis and ASA with caution and close monitoring of CBC maintaining Hg equal or > 8.0 7. Antibiotics as per the primary team 8. Can be D/C from cardiovascular point of view and F/U in the office in 1-2 week martin Tapia M.D.
[2017-11-17] MEDS ORDERED: METOPROLOL TARTRATE 50 MG TABLET (FP) PO SCH (07:46)
[2017-11-17] MEDS ORDERED: LOSARTAN POTASSIUM 50 MG TABLET (FP) PO SCH (10:00)
[2017-11-17] MEDS: amLODIPine BESYLATE 2.5 MG TABLET (FP) PO SCH (10:22)
[2017-11-17] MEDS: ASPIRIN COATED 81 MG TABLET.EC PO SCH (10:22)
[2017-11-17] MEDS: ISOSORBIDE MONONITRATE 60 MG TAB.SR.24H (FP) PO SCH (10:22)
[2017-11-17] MEDS: APIXABAN 5 MG TABLET PO SCH (10:23)
[2017-11-17] MEDS: TAMSULOSIN HCL 0.4 MG CAP.ER.24H (FP) PO SCH (10:23)
[2017-11-17] MEDS: RANOLAZINE E.R. 500 MG TABLET (FP) PO SCH (10:24)
[2017-11-17] MEDS: RANITIDINE HCL 150 MG TABLET (FP) PO SCH (10:24)
[2017-11-17 14:21] VITALS: BP 141/74; PULSE 59; TEMP 97.7
[2017-11-17] MEDS: ERTAPENEM SODIUM 0.5 GM in SODIUM CHLORIDE 100 ML IVPB SCH (17:07)
== END 2017-11-17 20:12 | disposition home or self-care (01) | DRG 460 ==
LOC: JER 13:14 → JERBED 16:54 → J4S 11-14 13:36
PROVIDERS: ADMIT Internal Medicine; ATTEND Nurse Practitioner Acute Care
DX: N17.9 Acute kidney failure, unspecified (principal); N39.0 Urinary tract infection, site not specified; I48.0 Paroxysmal atrial fibrillation; I48.92 Unspecified atrial flutter; E78.5 Hyperlipidemia, unspecified; I25.110 Atherosclerotic heart disease of native coronary artery with unstable angina pectoris; N40.1 Benign prostatic hyperplasia with lower urinary tract symptoms; R33.8 Other retention of urine; E83.42 Hypomagnesemia; I08.1 Rheumatic disorders of both mitral and tricuspid valves; I27.20 Pulmonary hypertension, unspecified; N13.8 Other obstructive and reflux uropathy; D64.9 Anemia, unspecified; G47.33 Obstructive sleep apnea (adult) (pediatric); R07.89 Other chest pain; R31.0 Gross hematuria; I13.0 Hypertensive heart and chronic kidney disease with heart failure and stage 1 through stage 4 chronic kidney disease, or unspecified chronic kidney disease; E11.22 Type 2 diabetes mellitus with diabetic chronic kidney disease; N18.9 Chronic kidney disease, unspecified; I50.32 Chronic diastolic (congestive) heart failure; Z79.4 Long term (current) use of insulin; Z96.642 Presence of left artificial hip joint; Z87.442 Personal history of urinary calculi; Z87.891 Personal history of nicotine dependence
CPT/HCPCS: 36415; 71045-TC; 73523-TC; 74176; 74176-TC; 80048; 80053; 81003; 81015; 82436; 82550; 82570; 82962; 83735; 83880; 84100; 84133; 84300; 84484; 85025; 87040; 87086; 93005; 93010; 93306-TC; 99285-25

== ENCOUNTER 2017-11-28 05:21 | Inpatient (IN) | payer OTHER ==
--- NOTE | 2017-11-28 05:57 | PDOC ---
History of Present Illness - General Chief Complaint: Pain Stated Complaint: CHEST PAIN Time Seen by Provider: 11/28/17 05:50 Past History - Past Medical History Allergies/Adverse Reactions: Allergies Allergy/AdvReac Type Severity Reaction Status Date / Time Gubduvd-Ygy-Grt Reductase Allergy Unknown Verified 11/28/17 05:54 Inhibitor lactose AdvReac Verified 11/28/17 05:54 Home Medications: Ambulatory Orders Tamsulosin HCl [Flomax -] 0.4 mg PO DAILY #10 capsule 06/01/16 Gemfibrozil [Lopid] 600 mg PO BID 10/14/16 Losartan Potassium [Cozaar -] 50 mg PO DAILY 10/14/16 Nitroglycerin [Nitrostat] 0.4 mg SL PRN PRN 10/14/16 Ranolazine [Ranexa -] 500 mg PO BID tab 11/01/16 Apixaban [Eliquis -] 5 mg PO BID #30 tablet 11/20/16 Colesevelam HCl [Welchol (Nf)] 625 mg PO BID #30 tablet 11/20/16 Ranitidine [Zantac -] 150 mg PO DAILY #20 tablet 11/20/16 Insulin Sliding Scale [Novolog Vial Sliding Scale -] 0 units SQ QID PRN Amlodipine Besylate [Norvasc -] 2.5 mg PO DAILY #30 tablet 02/10/17 Isosorbide Mononitrate [Imdur -] 30 mg PO DAILY #30 tab 02/10/17 Metoprolol Tartrate [Lopressor -] 25 mg PO BID #60 tablet 02/10/17 Insulin (Levemir) [Levemir Vial] 20 units SQ BID 11/12/17 Nitrofurantoin Monohyd/M-Cryst [Macrobid -] 100 mg PO BID #13 capsule 11/17/17 Anemia: No Asthma: No Cancer: No Cardiac Disorders: Yes (atrial flutter?) CVA: Yes (pt states several strokes) COPD: No CHF: No Dementia: No Diabetes: Yes (niddm) GI Disorders: No Disorders: Yes (kidney stent) HTN: Yes Hypercholesterolemia: Yes Liver Disease: No Seizures: No Thyroid Disease: Yes (hypothyroidism) - Surgical History Abdominal Surgery: No Appendectomy: Yes Cardiac Surgery: Yes (2012) Cholecystectomy: (gallstones) Lung Surgery: No Neurologic Surgery: No Orthopedic Surgery: Yes (Left hip replacement) - Immunization History Immunization Up to Date: No - Suicide/Smoking/Psychosocial Hx Smoking Status: No Smoking History: Former smoker Have you smoked in the past 12 months: No Number of Cigarettes Smoked Daily: 0 If you are a former smoker, when did you quit?: 1995 Cigars Per Day: 2 'Breaking Loose' booklet given: 03/25/17 Hx Alcohol Use: No Drug/Substance Use Hx: No Substance Use Type: None Hx Substance Use Treatment: No Review of Systems - Review of Systems Comments:: 11/28/17 05:52 GENERAL/CONSTITUTIONAL: No fever or chills. No weakness. HEAD, EYES, EARS, NOSE AND THROAT: No change in vision. No ear pain or discharge. No sore throat.- CARDIOVASCULAR: No chest pain or shortness of breath RESPIRATORY: No cough, wheezing, or hemoptysis. GASTROINTESTINAL: No nausea, vomiting, diarrhea or constipation. GENITOURINARY: No dysuria, frequency, or change in urination. MUSCULOSKELETAL: No joint or muscle swelling or pain. No neck or back pain. SKIN: No rash NEUROLOGIC: No headache, vertigo, loss of consciousness, or change in strength/ sensation. ENDOCRINE: No increased thirst. No abnormal weight change HEMATOLOGIC/LYMPHATIC: No anemia, easy bleeding, or history of blood clots. ALLERGIC/IMMUNOLOGIC: No hives or skin allergy. *Physical Exam - Physical Exam Comments: 11/28/17 05:52 GENERAL: Awake, alert, and fully oriented, in no acute distress HEAD: No signs of trauma, normocephalic, atraumatic EYES: PERRLA, EOMI, sclera anicteric, conjunctiva clear ENT: Auricles normal inspection, hearing grossly normal, nares patent, oropharynx clear without exudates. Moist mucosa NECK: Normal ROM, supple, no lymphadenopathy, JVD, or masses LUNGS: No distress, speaks full sentences, clear to auscultation bilaterally HEART: Regular rate and rhythm, normal S1 and S2, no murmurs, rubs or gallops, peripheral pulses normal and equal bilaterally. ABDOMEN: Soft, nontender, normoactive bowel sounds. No guarding, no rebound. No masses EXTREMITIES : Normal inspection, Normal range of motion, no edema. No clubbing or cyanosis. NEUROLOGICAL: Cranial nerves II through XII grossly intact. Normal speech, normal gait, no focal sensorimotor deficits SKIN: Warm, Dry, normal turgor, no rashes or lesions noted. *DC/Admit/Observation/Transfer - Referrals Referrals: Loni Reyes [Primary Care Provider] - - Patient Instructions - Post Discharge Activity
--- NOTE | 2017-11-28 07:15 | PDOC ---
History of Present Illness - General Chief Complaint: Pain Stated Complaint: CHEST PAIN Time Seen by Provider: 11/28/17 05:50 - History of Present Illness Initial Comments: The patient is a 72 year old male, with PMH of hypertension, hyperlipidemia, diabetes (Insulin dependent), atrial flutter, AFib, CAD(s/p stents (5 years prior) on Eliquis), TIAs (last one a few years ago), short term memory deficits , BPH (with urinary retention), CKD (stage 3), kidney stones, gallstone, chronic hip pain (s/p multiple r hip procedures), and diverticulosis presenting to the ED s/p probable TIA and one episode of resolved chest pain. Went to bed completely normal at 23:00 the previous evening and woke up out of bed at 4:00 AM with a sharp right sided pain near his ribs and his noticed a right sided facial droop with right sided UE and LE weakness. He also noticed some chest pain for which he immediately took a nitro, creating relief of symptoms. He attempted to get out of bed and slipped to the floor, was down for about 5- 10 minutes, then eventually was able to get up with some minor assistance. His then drove him to the hospital. Denies any current symptoms besides his chronic hip pain. Denies fevers, chills, nausea, vomiting, diarrhea, constipation, or other sick symptoms. He did not take any of his medications this AM because he came straight to the hospital. PCP: Dr. Loni Reyes ([phone]) Cartographic Technician: Dr. Tapia Urologist: Dr. Edmondson 11/28/17 07:33 Past History - Past Medical History Allergies/Adverse Reactions: Allergies Allergy/AdvReac Type Severity Reaction Status Date / Time Czifvst-Dog-Tvy Reductase Allergy Unknown Verified 11/28/17 05:54 Inhibitor lactose AdvReac Verified 11/28/17 05:54 Home Medications: Ambulatory Orders Tamsulosin HCl [Flomax -] 0.4 mg PO DAILY #10 capsule 06/01/16 Gemfibrozil [Lopid] 600 mg PO BID 10/14/16 Losartan Potassium [Cozaar -] 50 mg PO DAILY 10/14/16 Nitroglycerin [Nitrostat] 0.4 mg SL PRN PRN 10/14/16 Ranolazine [Ranexa -] 500 mg PO BID tab 11/01/16 Apixaban [Eliquis -] 5 mg PO BID #30 tablet 11/20/16 Colesevelam HCl [Welchol (Nf)] 625 mg PO BID #30 tablet 11/20/16 Ranitidine [Zantac -] 150 mg PO DAILY #20 tablet 11/20/16 Insulin Sliding Scale [Novolog Vial Sliding Scale -] 0 units SQ QID PRN Amlodipine Besylate [Norvasc -] 2.5 mg PO DAILY #30 tablet 02/10/17 Isosorbide Mononitrate [Imdur -] 30 mg PO DAILY #30 tab 02/10/17 Metoprolol Tartrate [Lopressor -] 25 mg PO BID #60 tablet 02/10/17 Insulin (Levemir) [Levemir Vial] 20 units SQ BID 11/12/17 Nitrofurantoin Monohyd/M-Cryst [Macrobid -] 100 mg PO BID #13 capsule 11/17/17 Anemia: No Asthma: No Cancer: No Cardiac Disorders: Yes (atrial flutter?) CVA: Yes (pt states several strokes) COPD: No CHF: No Dementia: No Diabetes: Yes (niddm) GI Disorders: No Disorders: Yes (kidney stent) HTN: Yes Hypercholesterolemia: Yes Liver Disease: No Seizures: No Thyroid Disease: Yes (hypothyroidism) - Surgical History Abdominal Surgery: No Appendectomy: Yes Cardiac Surgery: Yes (2012) Cholecystectomy: (gallstones) Lung Surgery: No Neurologic Surgery: No Orthopedic Surgery: Yes (Left hip replacement) - Immunization History Immunization Up to Date: No - Suicide/Smoking/Psychosocial Hx Smoking Status: No Smoking History: Current every day smoker Have you smoked in the past 12 months: No Number of Cigarettes Smoked Daily: 0 If you are a former smoker, when did you quit?: 1995 Cigars Per Day: 1 Information on smoking cessation initiated: No 'Breaking Loose' booklet given: 03/25/17 Hx Alcohol Use: No Drug/Substance Use Hx: No Substance Use Type: None Hx Substance Use Treatment: No Review of Systems - Review of Systems Constitutional: No: Chills, Diaphoresis, Fever HEENTM: No: Eye Pain, Blurred Vision Respiratory: No: Cough, Shortness of Breath, Wheezing Cardiac (ROS): Yes: Chest Pain ABD/GI: No: Constipated, Diarrhea : Yes: Frequency. No: Burning, Dysuria Integumentary: No: Bruising, Erythema, Flushing, Lesions Neurological: No: Headache, Numbness, Paresthesia, Dizziness *Physical Exam - Vital Signs Last Vital Signs Temp Pulse Resp BP Pulse Ox 98.2 F 77 20 143/72 97 11/28/17 05:55 11/28/17 05:55 11/28/17 05:55 11/28/17 05:55 11/28/17 05:55 - Physical Exam General Appearance: Yes: Nourished, Appropriately Dressed. No: Apparent Distress HEENT: positive: EOMI, LORA, Normal ENT Inspection, Normal Voice Neck: positive: Trachea midline, Normal Thyroid, Supple. negative: Tender, Rigid Respiratory/Chest: positive: Lungs Clear, Normal Breath Sounds. negative: Chest Tender, Respiratory Distress, Accessory Muscle Use Cardiovascular: positive: Regular Rhythm, Regular Rate Gastrointestinal/Abdominal: positive: Normal Bowel Sounds, Flat, Soft. negative : Tender Musculoskeletal: negative: Normal Inspection (Some slight pain with movement of right hip.) Extremity: positive: Normal Capillary Refill, Normal Inspection, Normal Range of Motion Integumentary: positive: Normal Color, Dry, Warm Neurologic: positive: explosive technician II-XII NML intact, Fully Oriented, Alert, Normal Mood/ Affect, Normal Response, Motor Strength 5/5 Heart Score/ECG Review - History History: Slightly suspicious - Electrocardiogram EKG: Normal - Age Age: >/= 65 - Risk Factors Risk Factors Heart Score: Yes Hx Hypercholesterolemia, Yes Hx Hypertension, Yes Hx Diabetes, Yes Smoking History Based on the list above the patient has:: >/=3 risk factors or Hx atherosclerotic disease - Troponin Troponin: >/=3x normal limit - Score Heart Score - Total: 6 - ECG Intrepretation Rhythm: Regular Rhythm - Preston Preston: Normal - ST and T Comment:: 11/28/17 08:23 T wave inversions in I, aVL, V4, V5, and V6 that are present on EKG from 2017. Also ST elevations in V3 that are present on this same EKG. Possible slight progression of ST elevation in V3 but otherwise grossly unchanged. ED Treatment Course - LABORATORY CBC & Chemistry Diagram: 11/28/17 06:55 11/28/17 06:55 Medical Decision Making - Medical Decision Making 72 year old M with history of cardiac stent placement and TIAs presenting a at least few hours s/p chest pain and likely TIA. Chest pain workup will include EKG, troponins, CBC, CMP, and CXR. TIA workup will include the above + head CT for hemorrhagic stroke, neuro follow up, and admission. 11/28/17 08:06 FULL NIHSS was scored at 1 (patient had issue recalling the month but according to , this is consistent with his short term memory deficit) 11/28/17 08:25 Labs returned with elevated troponin (0.22) and LORY on CKD (cr 2.3 with baseline of 1.3) and elevated glucose to 489 (likely in the setting of not taking his insulin because he was in the hospital). 11/28/17 10:09 Admitted to hospitalist service under tele per conversation/ signout with SANDY Sanchez. 11/28/17 10:16 *DC/Admit/Observation/Transfer Diagnosis at time of Disposition: Troponin I above reference range, LORY (acute kidney injury) TIA (transient ischemic attack) Qualifiers: Transient cerebral ischemia type: unspecified Qualified Code(s): G45.9 - Transient cerebral ischemic attack, unspecified - Discharge Dispostion Condition at time of disposition: Stable Admit: Yes - Referrals Referrals: Loni Reyes [Primary Care Provider] - - Patient Instructions - Post Discharge Activity
[2017-11-28 07:28] LABS: BASO % 0.6 % (0-2.0); HEMATOCRIT 36.9 % (35.4-49); HEMOGLOBIN 12.1 GM/dL (11.7-16.9); LYMPH % 17.6 % (8-40); MCH 30.7 pg (25.7-33.7); MCHC 32.7 g/dl (32.0-35.9); MEAN CELL VOLUME 93.9 fl (80-96); MEAN PLT VOLUME 8.9 fl (7.5-11.1); MONO % 6.8 % (3.8-10.2); PLATELET COUNT 324 K/MM3 (134-434); RBC 3.92 M/mm3 (4.00-5.60); RDW 13.8 % (11.9-15.9); WHITE BLOOD COUNT 8.8 K/mm3 (4.0-10.0)
[2017-11-28 07:45] LABS: INR 1.08 (0.82-1.09); PROTHROMBIN TIME (PATIENT) 12.2 SEC (9.98-11.88)
[2017-11-28 07:56] LABS: ALBUMIN 3.3 g/dl (3.4-5.0); ANION GAP 10 (8-16); BILIRUBIN,TOTAL 0.2 mg/dL (0.2-1.0); BLOOD UREA NITROGEN 36 mg/dL (7-18); CALCIUM 8.5 mg/dL (8.5-10.1); CHLORIDE 97 mmol/L (98-107); CO2 26 mmol/L (21-32); CREATININE 2.3 mg/dL (0.7-1.3); POTASSIUM 4.8 mmol/L (3.5-5.1); SGOT/AST 10 U/L (15-37); SGPT/ALT 13 U/L (12-78); SODIUM 133 mmol/L (136-145); TOT PROT 7.2 g/dl (6.4-8.2)
[2017-11-28 07:59] LABS: ALK PHOS 152 U/L (45-117)
[2017-11-28 08:15] LABS: GLUCOSE,RANDOM 489 mg/dL (74-106)
[2017-11-28] MEDS ORDERED: INSULIN REGULAR HUMAN 100 UNITS/ML *VIAL IVPUSH ONE (09:47)
[2017-11-28] MEDS ORDERED: SODIUM CHLORIDE 0.9% 500 ML INFUS.BAG IV ONE (09:47)
[2017-11-28] MEDS ORDERED: ASPIRIN 81 MG CHEWABLE TABLETS PO ONE (09:49)
[2017-11-28] MEDS ORDERED: ASPIRIN 81 MG CHEWABLE TABLETS ONE (09:55)
[2017-11-28] MEDS ORDERED: INSULIN REGULAR HUMAN 100 UNITS/ML *VIAL ONE (09:56)
[2017-11-28] MEDS ORDERED: APIXABAN 5 MG TABLET PO SCH ×2 (10:23→22:00)
[2017-11-28] MEDS ORDERED: INSULIN DETEMIR 100 UNITS/ML MDV SQ ONE ×2 (10:23→11:00)
--- NOTE | 2017-11-28 11:32 | PDOC ---
Attending Attestation - HPI HPI: 11/28/17 11:42 The patient is a 72 year old male with a significant PMH of HTN, hyperlipidemia , diabetes, atrial flutter, AFIB, CAD (s/p stent, on Eliquis), past TIAs, BPH, CKD, diverticulosis, and chronic hip pain who presents to the emergency department for evaluation of a possible TIA. Patient reports his noticed right sided facial droop with right sided upper and lower extremity weakness this morning about 6 hours ago. Patient notes slipping out of bed while getting up shortly after and remaining on the floor for 5-10 minutes, prompting his to call EMS. Patient also reports a sudden onset of right side chest pain which resolved after he took a Nitro. Allergies: Xrpwplm-Pdz-IjG Reductase Inhibitor. Lactose. PCP: Dr. Reyes <Pierce Novoa - Last Filed: 11/28/17 11:42> - Resident Resident Name: Delores Artis - Physicial Exam PE: 11/30/17 09:34 General: Pt was non toxic appearing 72 y/o male in no distress at time of exam having just finished eating breakfast in ED Lung: + bs yaima cta Heart: S1S2: regular Abd: + bs abs soft non tender Ext: No edema Neuro: alert and oriented x3, Hwang's, no focal deficts, cn 2-12 grossly intact, NIHSS 1 ,completed by resident 11/30/17 09:23 11/30/17 09:28 11/30/17 09:34 - Medical Decision Making 11/30/17 09:29 72 y/o male brought to ED by his for eval of episode of rt sided weakness that had completely resolved upon arrival to ED. PT with h/o TIAs in the past, pt is on Eliquis. Pt has numerous risk factors for strokes, HTN, DM, CAD, previous TIAS will require admisison to hospital. Pt also with elevated bs on arrival 498 treated with insulin and fluids. PT and agree with current admission plan. Pt will require neuro evaluation , serial troponins and continued cardiac monitoring. <Sylvia Alvarenga - Last Filed: 11/30/17 09:36>
--- NOTE | 2017-11-28 11:49 | HP ---
CHIEF COMPLAINT: chest pain PCP: Dr. Loni Reyes Cardiology: Dr. Bhat Urology: Dr. Edmondson HISTORY OF PRESENT ILLNESS: This is a 72 year old male with PMHx of HTN, hyperlipidemia, IDDM, a.flutter ( on Eliquis), CAD s/p stenting 5 years ago, TIAs, short term memory deficits, BPH , CKD stage 3, renal calculi, chronic hip pain, diverticulosis, who presented to the ED with chest pain and an episode of right sided facial droop and weakness which has since resolved. The patient reports that last night while in bed he had an episode of stabbing chest pain for which he took nitro and his symptoms resolved. His then states that she noticed he had a right sided facial droop. He states he attempted to get out of bed and slipped onto the floor, but did not hit his head. He eventually was able to get up and his symptoms resolved prior to arriving in the ED. The patient does however state that he is experiencing sharp chest pain when he moves or "presses" on his chest. The patient denies any dizziness, nausea, vomiting, diarrhea, headache, cough. The patient denies any sick contacts. Off note: the patient reports he was recently treated for a UTI and that he is still experiencing some dysuria ER course was notable for: (1) Temp 98.2, pulse 77, BP 143/72, resp 20, O2 97% on RA (2) Na 133, Cr 2.3, glucose 489, trop 0.22 (3) Head CT: No evidence of acute intracranial pathology (4) Chest X-ray: clear lungs, normal heart, normal aorta, normal kavon (5) EKG: NSR, prolonged qtc Recent Travel: denies PAST MEDICAL HISTORY: as above PAST SURGICAL HISTORY: as above Social History: Smoking: denies Alcohol: denies Drugs: denies Family History: Allergies Oadofcc-Qgh-Msw Reductase Inhibitor Allergy (Unknown, Verified 11/28/17 05:54) lactose Adverse Reaction (Verified 11/28/17 05:54) HOME MEDICATIONS: Home Medications Medication Instructions Recorded Tamsulosin HCl [Flomax -] 0.4 mg PO DAILY #10 capsule 06/01/16 Gemfibrozil [Lopid] 600 mg PO BID 10/14/16 Losartan Potassium [Cozaar -] 50 mg PO DAILY 10/14/16 Nitroglycerin [Nitrostat] 0.4 mg SL PRN PRN 10/14/16 Ranolazine [Ranexa -] 500 mg PO BID tab 11/01/16 Apixaban [Eliquis -] 5 mg PO BID #30 tablet 11/20/16 Colesevelam HCl [Welchol (Nf)] 625 mg PO BID #30 tablet 11/20/16 Ranitidine [Zantac -] 150 mg PO DAILY #20 tablet 11/20/16 Insulin Sliding Scale [Novolog 0 units SQ QID PRN 01/31/17 Vial Sliding Scale -] Amlodipine Besylate [Norvasc -] 2.5 mg PO DAILY #30 tablet 02/10/17 Isosorbide Mononitrate [Imdur -] 30 mg PO DAILY #30 tab 02/10/17 Metoprolol Tartrate [Lopressor -] 25 mg PO BID #60 tablet 02/10/17 Insulin (Levemir) [Levemir Vial] 20 units SQ BID 11/12/17 Nitrofurantoin Monohyd/M-Cryst 100 mg PO BID #13 capsule 11/17/17 [Macrobid -] REVIEW OF SYSTEMS CONSTITUTIONAL: Absent: fever, chills, diaphoresis, generalized weakness, malaise, loss of appetite, weight change HEENT: Absent: rhinorrhea, nasal congestion, throat pain, throat swelling, difficulty swallowing, mouth swelling, ear pain, eye pain, visual changes CARDIOVASCULAR: Sharp left sided chest pain that began a few days ago and worsened last night. Absent: syncope, palpitations, irregular heart rate, lightheadedness, peripheral edema RESPIRATORY: Absent: cough, shortness of breath, dyspnea with exertion, orthopnea, wheezing, stridor, hemoptysis GASTROINTESTINAL:Absent: abdominal pain, abdominal distension, nausea, vomiting , diarrhea, constipation, melena, hematochezia GENITOURINARY: Absent: dysuria, frequency, urgency, hesitancy, hematuria, flank pain, genital pain MUSCULOSKELETAL: Absent: myalgia, arthralgia, joint swelling, back pain, neck pain SKIN: Absent: rash, itching, pallor HEMATOLOGIC/IMMUNOLOGIC: Absent: easy bleeding, easy bruising, lymphadenopathy, frequent infections ENDOCRINE:Absent: unexplained weight gain, unexplained weight loss, heat intolerance, cold intolerance NEUROLOGIC: Right sided facial droop and right upper and extremity and lower extremity weakness that began last night and resolved prior to arrival in the ED Absent: headache, dizziness, seizure, mental status changes, bladder or bowel incontinence PSYCHIATRIC: Absent: anxiety, depression, suicidal or homicidal ideation, hallucinations. PHYSICAL EXAMINATION Vital Signs - 24 hr 11/28/17 11/28/17 11/28/17 05:55 08:03 11:34 Temperature 98.2 F Pulse Rate 77 Pulse Rate [ 74 78 Apical] Respiratory 20 18 18 Rate Blood Pressure 143/72 Blood Pressure 138/60 146/70 [Left Arm] O2 Sat by Pulse 97 99 98 Oximetry (%) GENERAL: Awake, alert, NAD, A&O x1 (person only. Thinks it is December 2002. Also thinks he is 62 years old) HEAD: Normal with no signs of trauma. EYES: Pupils equal, round and reactive to light, extraocular movements intact, sclera anicteric, conjunctiva clear. No lid lag. EARS, NOSE, THROAT: Ears normal, nares patent, oropharynx clear without exudates. Moist mucous membranes. NECK: Normal range of motion LUNGS: Breath sounds equal, clear to auscultation bilaterally. No wheezes, and no crackles. No accessory muscle use. HEART: Regular rate and rhythm, normal S1 and S2 ABDOMEN: Soft, nontender, not distended, normoactive bowel sounds, no guarding, no rebound, no masses. No hepatomegaly or splenomegaly. MUSCULOSKELETAL: Right reproducible chest pain. Normal range of motion at all joints. No bony deformities. No CVA tenderness. UPPER EXTREMITIES: 2+ pulses, warm, well-perfused. No cyanosis. No clubbing. No peripheral edema. LOWER EXTREMITIES: 2+ pulses, warm, well-perfused. No calf tenderness. No peripheral edema. NEUROLOGICAL: Cranial nerves II-XII intact. Normal speech. Gait not observed PSYCHIATRIC: Cooperative. Good eye contact. Appropriate mood and affect. SKIN: Warm, dry, normal turgor, no rashes or lesions noted, normal capillary refill. Laboratory Results - last 24 hr 11/28/17 11/28/17 11/28/17 06:55 06:55 06:55 WBC 8.8 D RBC 3.92 L Hgb 12.1 Hct 36.9 MCV 93.9 MCH 30.7 MCHC 32.7 RDW 13.8 Plt Count 324 MPV 8.9 Neutrophils % 74.0 D Lymphocytes % 17.6 D Monocytes % 6.8 Eosinophils % 1.0 Basophils % 0.6 PT with INR 12.20 H INR 1.08 D Sodium 133 L Potassium 4.8 Chloride 97 L Carbon Dioxide 26 Anion Gap 10 BUN 36 H D Creatinine 2.3 H D Creat Clearance w eGFR 28.01 Random Glucose 489 H* D Calcium 8.5 Total Bilirubin 0.2 D AST 10 L ALT 13 Alkaline Phosphatase 152 H Creatine Kinase 79 Troponin I 0.22 H Total Protein 7.2 Albumin 3.3 L 11/28/17 06:55 WBC RBC Hgb Hct MCV MCH MCHC RDW Plt Count MPV Neutrophils % Lymphocytes % Monocytes % Eosinophils % Basophils % PT with INR INR Sodium Potassium Chloride Carbon Dioxide Anion Gap BUN Creatinine Creat Clearance w eGFR Random Glucose Calcium Total Bilirubin AST ALT Alkaline Phosphatase Creatine Kinase Cancelled Troponin I Cancelled Total Protein Albumin Assessment: This is a 72 year old male with PMHx of HTN, hyperlipidemia, IDDM, a.fib (on Eliquis), CAD s/p stenting 5 years ago, TIAs, short term memory deficits, BPH, CKD stage 3, renal calculi, chronic hip pain, diverticulosis, who presented to the ED with chest pain and an episode of right sided facial droop and weakness which has since resolved. Plan: 1) TIA vs. CVA - Right sided facial droop and right upper and lower extremity weakness resolved - F/u brain MRI - F/u neurology consult 2) Atypical chest pain - Elevated trop, however same as previous admission a few weeks ago - Chest pain reproducible on exam - Continue to trend troponins - ASA 324mg given in the ED this AM - F/u cardiology consult 3) S/p fall - Patient reports no head trauma however has short term memory deficits - Head CT this AM with no evidence of intracranial bleed - Patient on Eliquis at home, will repeat head CT this evening, if negative for intracranial hemorrhage, can resume Eliquis 5mg po bid 4) LORY on CKD - F/u kidney bladder ultrasound - F/u urine electrolytes - F/u UA (recently treated for UTI, still with some dysuria, f/u urine culture as well) - F/u nephrology consult 5) CAD s/p cardiac stents - 1/15/18 Echo: LV borderline dilated, LV function normal; RV normal; BLAE; mild MR; trace to mild TR; trace AI - Hold Losartan 2/2 LORY - Continue Ranexa 6) Paroxysmal A.fib - Hold Eliquis until repeat head CT shows no intracranial hemorrage this evening 7) IDDM - Continue Levemir - BGM ACHS - ISS ACHS 8) F/E/N: - Diabetic, low sodium diet - Monitor electrolytes 9) Prophylaxis: - Will restart Eliquis as outlined above - PT evaluation 10) Dispo: - Requires continued inpatient care CODE STATUS: FULL CODE Visit type - Emergency Visit Emergency Visit: Yes ED Registration Date: 11/28/17 Care time: The patient presented to the Emergency Department on the above date and was hospitalized for further evaluation of their emergent condition. - New Patient This patient is new to me today: Yes Date on this admission: 11/28/17 - Critical Care Critical Care patient: No
[2017-11-28 11:51] VITALS: BMI 29.8
--- NOTE | 2017-11-28 12:07 | EKG ---
Test Reason : Blood Pressure : / mmHG Vent. Rate : 076 BPM Atrial Rate : 076 BPM P-R Int : 166 ms QRS Dur : 092 ms QT Int : 432 ms P-R-T Axes : 046 015 131 degrees QTc Int : 486 ms POOR DATA QUALITY, INTERPRETATION MAY BE ADVERSELY AFFECTED NORMAL SINUS RHYTHM PROLONGED QT ABNORMAL ECG Confirmed by MD BERTIN, FRIEDA ([id number]) on 11/28/2017 12:06:50 PM Referred By: Confirmed By:FRIEDA DENTON MD
[2017-11-28] MEDS ORDERED: INSULIN (NOVOLOG) ASPART 100 UNITS/ML 10ML VIAL SQ ONE (13:17)
[2017-11-28] MEDS: INSULIN SLIDING SCALE (NOVOLOG) 1 VIAL SQ SCH ×3 (13:54→21:13)
[2017-11-28] MEDS: NITROGLYCERIN SUBLINGUAL 1/150 0.4 MG TAB SL PRN ×2 (14:57→20:39)
[2017-11-28 15:54] LABS: URINE APPEARANCE CLOUDY; URINE BILIRUBIN NEGATIVE (NEGATIVE); URINE BLOOD 2+ (NEGATIVE); URINE COLOR LTYELLOW; URINE GLUCOSE (UA) 3+ (NEGATIVE); URINE KETONE NEGATIVE (NEGATIVE); URINE NITRITE NEGATIVE (NEGATIVE); URINE UROBILINOGEN NEGATIVE mg/dL (0.2-1.0)
[2017-11-28 15:55] LABS: URINE LEUK ESTERASE 3+ (NEGATIVE); URINE PROTEIN 1+ (NEGATIVE)
[2017-11-28] MEDS ORDERED: ERTAPENEM SODIUM 1 GM in SODIUM CHLORIDE 100 ML IVPB ONE (15:58)
[2017-11-28 16:04] LABS: URINE CREATININE 76.3 mg/dL (20-370)
[2017-11-28 16:10] LABS: EPI CELLS RARE /HPF (FEW); YEAST MODERATE
[2017-11-28] MEDS ORDERED: HEPARIN NA (PORCINE) 5,000 UNITS/ML 1ML VIAL IVPUSH PRN (16:17)
[2017-11-28] MEDS: HEPARIN - 25,000 UNIT in SODIUM CHLORIDE 495 ML IV SCH (17:57)
--- NOTE | 2017-11-28 19:24 | CON.NEURO ---
Consult Consult Specialty:: NEUROLOGY-DANIEL GRAF - History of Present Illness History of Present Illness: This is a 72 year old male with PMHx of HTN, hyperlipidemia, IDDM, a.flutter ( on Eliquis), CAD s/p stenting 5 years ago, TIAs, short term memory deficits, BPH , CKD stage 3, renal calculi, chronic hip pain, diverticulosis, who presented to the ED with chest pain and an episode of right sided facial droop and weakness which has since resolved. The patient reports that last night while in bed he had an episode of stabbing chest pain for which he took nitro and his symptoms resolved. His then states that she noticed he had a right sided facial droop. He states he attempted to get out of bed and slipped onto the floor, but did not hit his head. He eventually was able to get up and his symptoms resolved prior to arriving in the ED. The patient does however state that he is experiencing sharp chest pain when he moves or "presses" on his chest. The patient denies any dizziness, nausea, vomiting, diarrhea, headache, cough. The patient denies any sick contacts. Off note: the patient reports he was recently treated for a UTI and that he is still experiencing some dysuria ER course was notable for: (1) Temp 98.2, pulse 77, BP 143/72, resp 20, O2 97% on RA (2) Na 133, Cr 2.3, glucose 489, trop 0.22 (3) Head CT: No evidence of acute intracranial pathology (4) Chest X-ray: clear lungs, normal heart, normal aorta, normal kavon (5) EKG: NSR, prolonged qtc Pt. reports tonight he feels well,only reports above chest pain upon "pressing" left chest. Denies visual symptoms, weakness/numbness.There is some doubt that he was compliant with Eliquis or not due to his cognitive difficulty(STM deficits). - Past Medical History Cardio/Vascular: Yes: AFIB (not on AC), CAD (with stent), HTN, Hyperlipdemia Pulmonary: Yes: Sleep Apnea Hepatobiliary: Yes: Cholelithiasis Renal/: Yes: Renal Inusuff, BPH, Renal Calculi Endocrine: Yes: Diabetes Mellitus - Past Surgical History Past Surgical History: Yes: Appendectomy, Joint Replacement (Hip surgery for fracture right femur, ORIF right ankle, hip replacement) - Alcohol/Substance Use Hx Alcohol Use: No - Smoking History Smoking history: Current every day smoker Have you smoked in the past 12 months: No Aproximately how many cigarettes per day: 0 If you are a former smoker, when did you quit?: 1995 - Social History Usual Living Arrangement: With Spouse ADL: Independent Home Medications - Allergies Allergies/Adverse Reactions: Allergies Allergy/AdvReac Type Severity Reaction Status Date / Time Zcgnovu-Dqv-Fvs Reductase Allergy Unknown Verified 11/28/17 05:54 Inhibitor lactose AdvReac Verified 11/28/17 05:54 - Home Medications Home Medications: Ambulatory Orders Tamsulosin HCl [Flomax -] 0.4 mg PO DAILY #10 capsule 06/01/16 Gemfibrozil [Lopid] 600 mg PO BID 10/14/16 Losartan Potassium [Cozaar -] 50 mg PO DAILY 10/14/16 Nitroglycerin [Nitrostat] 0.4 mg SL PRN PRN 10/14/16 Ranolazine [Ranexa -] 500 mg PO BID tab 11/01/16 Apixaban [Eliquis -] 5 mg PO BID #30 tablet 11/20/16 Colesevelam HCl [Welchol (Nf)] 625 mg PO BID #30 tablet 11/20/16 Ranitidine [Zantac -] 150 mg PO DAILY #20 tablet 11/20/16 Insulin Sliding Scale [Novolog Vial Sliding Scale -] 0 units SQ QID PRN Amlodipine Besylate [Norvasc -] 2.5 mg PO DAILY #30 tablet 02/10/17 Isosorbide Mononitrate [Imdur -] 30 mg PO DAILY #30 tab 02/10/17 Metoprolol Tartrate [Lopressor -] 25 mg PO BID #60 tablet 02/10/17 Insulin (Levemir) [Levemir Vial] 20 units SQ BID 11/12/17 Nitrofurantoin Monohyd/M-Cryst [Macrobid -] 100 mg PO BID #13 capsule 11/17/17 Family Disease History - Family Disease History Family Disease History: Diabetes: Grandparent Physical Exam-Neuro Vital Signs: Vital Signs Temperature 98.3 F 11/28/17 13:45 Pulse Rate 71 11/28/17 13:45 Respiratory Rate 18 11/28/17 13:45 Blood Pressure 152/80 11/28/17 13:45 O2 Sat by Pulse Oximetry (%) 98 11/28/17 12:00 Labs: CBC, BMP 11/28/17 06:55 11/28/17 06:55 INR, PTT INR 1.08 (0.82-1.09) D 11/28/17 06:55 - Neuro Exam Level Of Consciousness: Yes: Alert, Oriented to Person, Oriented to Place, Oriented to Time Eyes: Yes: PERRL (No field cut noted) Dominant Hand: Right Mini Mental Exam: normal except for mild inattentiveness and able to recall only 1/3 objects.. Cranial Nerves II-XII Intact: (No facial assymetry noted) DTR's: 0 Left Achilles, 0 Right Achilles, 1+ Left Bicep, 1+ Right Bicep, 1+ Left Tricep, 1+ Right Tricep, 1+ Left Brachioradialis, 1+ Right Brachioradialis Babinski: Absent Response to light touch: Normal Response to pain prick: Normal Response to temperature: Normal Response to vibration: Normal Gait: Other (Normal base, somewhat unsteady but does not require assistance, normal stride, a little slow.) Imaging - Results Cat Scan: Report Reviewed (Old left cerebellar and bilateral b/g infarcts.) MRI: Report Reviewed (Scattered right frontal, parietal and parietooccipital small infarcts-likely embolic phenomenon) Assessment/Plan Pt. with Afib, now with a shower of right cerebral emboli. It is unclear whether he was non-compliant with Eliquis or he broke thru, probably former. Would start Eliquis again but it may be preferable to have him on Coumadin as his compliance will be measurable. Will also d/w his tomorrow whether she can assist in helping him comply with coumadin. Cont heparin drip, will give first dose of coumadin now. D/W Laura Rosa, N/P. Thank you, MAnurag Mata MD.
[2017-11-28] MEDS ORDERED: WARFARIN NA 5 MG TABLET (UD) PO ONE (19:55)
[2017-11-28] MEDS: ACETAMINOPHEN 325 MG TABLET (FP) PO PRN (20:38)
[2017-11-28] MEDS ORDERED: INSULIN (NOVOLOG) ASPART 100 UNITS/ML 10ML VIAL ONE (21:07)
[2017-11-28] MEDS: METOPROLOL TARTRATE 25 MG TABLET (FP) PO SCH (21:13)
[2017-11-28] MEDS: RANOLAZINE E.R. 500 MG TABLET (FP) PO SCH (21:13)
[2017-11-28] MEDS: INSULIN DETEMIR 100 UNITS/ML MDV SQ SCH (21:23)
[2017-11-28] MEDS ORDERED: HEPARIN NA (PORCINE) 5,000 UNITS/ML 1ML VIAL SQ SCH (22:00)
[2017-11-28] MEDS ORDERED: INSULIN DETEMIR 100 UNITS/ML MDV SQ SCH (22:00)
[2017-11-28] MEDS ORDERED: PATIENT'S OWN MEDICATION (NON-FORMULARY) (Colesevelam Hcl [Welchol (Nf)] 625 MG) PO SCH (22:00)
[2017-11-28] MEDS ORDERED: GEMFIBROZIL 600 MG TABLET (FP) PO SCH (22:00)
[2017-11-29] MEDS: HEPARIN - 25,000 UNIT in SODIUM CHLORIDE 495 ML IV SCH ×2 (00:57→16:25)
[2017-11-29] MEDS ORDERED: INSULIN (NOVOLOG) ASPART 100 UNITS/ML 10ML VIAL ONE (06:27)
[2017-11-29] MEDS: INSULIN DETEMIR 100 UNITS/ML MDV SQ SCH ×2 (07:00→21:53)
[2017-11-29] MEDS: INSULIN SLIDING SCALE (NOVOLOG) 1 VIAL SQ SCH ×4 (07:01→21:52)
[2017-11-29] MEDS ORDERED: INSULIN DETEMIR 100 UNITS/ML MDV SQ ONE (07:02)
[2017-11-29 07:39] LABS: BASO % 1.3 % (0-2.0); EOS % 3.9 % (0-4.5); HEMATOCRIT 35.2 % (35.4-49); HEMOGLOBIN 11.8 GM/dL (11.7-16.9); LYMPH % 43.9 % (8-40); MCH 31.2 pg (25.7-33.7); MCHC 33.7 g/dl (32.0-35.9); MEAN CELL VOLUME 92.6 fl (80-96); MEAN PLT VOLUME 8.5 fl (7.5-11.1); MONO % 8.8 % (3.8-10.2); NEUT % 42.1 % (42.8-82.8); PLATELET COUNT 319 K/MM3 (134-434); RDW 13.6 % (11.9-15.9); WHITE BLOOD COUNT 6.3 K/mm3 (4.0-10.0)
[2017-11-29 08:13] LABS: ALBUMIN 2.9 g/dl (3.4-5.0); ALK PHOS 122 U/L (45-117); ANION GAP 11 (8-16); BILIRUBIN,TOTAL 0.2 mg/dL (0.2-1.0); BLOOD UREA NITROGEN 31 mg/dL (7-18); CALCIUM 8.4 mg/dL (8.5-10.1); CHLORIDE 105 mmol/L (98-107); CHOLESTEROL 222 mg/dL (50-200); CO2 22 mmol/L (21-32); CREATININE 1.5 mg/dL (0.7-1.3); GLUCOSE,RANDOM 153 mg/dL (74-106); HDL CHOLESTEROL 35 mg/dL (40-60); LDL CHOLESTEROL (ONLY SJRH) 153 mg/dL (5-100); MAGNESIUM 1.3 mg/dL (1.8-2.4); PHOSPHOROUS 2.9 mg/dL (2.5-4.9); POTASSIUM 3.7 mmol/L (3.5-5.1); SGOT/AST 15 U/L (15-37); SGPT/ALT 13 U/L (12-78); SODIUM 138 mmol/L (136-145); TOT PROT 6.7 g/dl (6.4-8.2); TRIGLYCERIDES 269 mg/dL (35-160)
--- NOTE | 2017-11-29 08:49 | CON.NEP ---
Consult Consult Specialty:: Nephrology Referred by:: Dr Artis Reason for Consultation:: LORY on CKD - History of Present Illness Chief Complaint: Chest pain, unilateral weakness History of Present Illness: This is a 72 year old gentleman with PMhx of Nephrolithiasis, Mild CKD ( baseline Cr 1.3-2), DM on insulin, Atrial flutter, CAD, TIA, BPH with urinary retention who presented with complaints of chest pain, unilateral extremity weakness and facial asymmetry with Cr of 2.5. Pt reports having left sided flank pain x 2 weeks with some hematuria at home. Did not see any passed stones. No new medications started. No recent abx use. No rash. No fever, chills , N/V/D. Good oral intake. - History Source History Provided By: Patient Limitations to Obtaining History: No Limitations - Past Medical History Cardio/Vascular: Yes: AFIB (not on AC), CAD (with stent), HTN, Hyperlipdemia Pulmonary: Yes: Sleep Apnea Hepatobiliary: Yes: Cholelithiasis Renal/: Yes: Renal Inusuff, BPH, Renal Calculi Endocrine: Yes: Diabetes Mellitus - Past Surgical History Past Surgical History: Yes: Appendectomy, Joint Replacement (Hip surgery for fracture right femur, ORIF right ankle, hip replacement) - Alcohol/Substance Use Hx Alcohol Use: No - Smoking History Smoking history: Current every day smoker Have you smoked in the past 12 months: No Aproximately how many cigarettes per day: 0 If you are a former smoker, when did you quit?: 1995 - Social History Usual Living Arrangement: With Spouse ADL: Independent Home Medications - Allergies Allergies/Adverse Reactions: Allergies Allergy/AdvReac Type Severity Reaction Status Date / Time Ttracnt-Fyz-Caa Reductase Allergy Unknown Verified 11/28/17 05:54 Inhibitor lactose AdvReac Verified 11/28/17 05:54 - Home Medications Home Medications: Ambulatory Orders Tamsulosin HCl [Flomax -] 0.4 mg PO DAILY #10 capsule 06/01/16 Gemfibrozil [Lopid] 600 mg PO BID 10/14/16 Losartan Potassium [Cozaar -] 50 mg PO DAILY 10/14/16 Nitroglycerin [Nitrostat] 0.4 mg SL PRN PRN 10/14/16 Ranolazine [Ranexa -] 500 mg PO BID tab 12/31/16 Apixaban [Eliquis -] 5 mg PO BID #30 tablet 11/20/16 Colesevelam HCl [Welchol (Nf)] 625 mg PO BID #30 tablet 11/20/16 Ranitidine [Zantac -] 150 mg PO DAILY #20 tablet 11/20/16 Insulin Sliding Scale [Novolog Vial Sliding Scale -] 0 units SQ QID PRN Amlodipine Besylate [Norvasc -] 2.5 mg PO DAILY #30 tablet 02/10/17 Isosorbide Mononitrate [Imdur -] 30 mg PO DAILY #30 tab 02/10/17 Metoprolol Tartrate [Lopressor -] 25 mg PO BID #60 tablet 02/10/17 Insulin (Levemir) [Levemir Vial] 20 units SQ BID 11/12/17 Nitrofurantoin Monohyd/M-Cryst [Macrobid -] 100 mg PO BID #13 capsule 11/17/17 Family Disease History - Family Disease History Family History: Unremarkable Family Disease History: Diabetes: Grandparent Review of Systems - Review of Systems Constitutional: reports: No Symptoms Eyes: reports: No Symptoms HENT: reports: No Symptoms Neck: reports: No Symptoms Cardiovascular: reports: Chest Pain Respiratory: reports: No Symptoms Gastrointestinal: reports: No Symptoms Genitourinary: reports: Flank Pain, Hematuria. denies: Dysuria Musculoskeletal: reports: No Symptoms Neurological: reports: Weakness Endocrine: reports: No Symptoms Psychiatric: reports: No Symptoms Nephrology Consult - Height Height: 6 ft 3 in - Weight Weight: 108.182 kg - BMI Body Mass Index (BMI): 29.8 - Lab Results CBC,BMP: CBC, BMP 11/29/17 07:15 11/29/17 07:15 Anion Gap: Anion Gap Anion Gap 11 (8-16) 11/29/17 07:15 - Imaging Chest X-ray: Report Reviewed Cat Scan: Report Reviewed MRI: Report Reviewed - Physical Examination Vital Signs: Vital Signs Temperature 98.2 F 11/29/17 06:00 Pulse Rate 68 11/29/17 06:00 Respiratory Rate 20 11/29/17 06:00 Blood Pressure 153/64 11/29/17 06:00 O2 Sat by Pulse Oximetry (%) 98 11/28/17 21:00 Constitutional: Yes: Well Nourished, No Distress Eyes: Yes: Conjunctiva Clear HENT: Yes: Atraumatic Neck: Yes: Supple Cardiovascular: Yes: Regular Rate and Rhythm Respiratory: Yes: Regular Gastrointestinal: Yes: Normal Bowel Sounds Renal/: Yes: [place] Present. No: Bladder Distention, CVA Tenderness - Left, CVA Tenderness - Right Edema: No Neurological: Yes: Alert, Oriented Assessment/Plan 72 year old gentleman with PMhx of Nephrolithiasis, Mild CKD (baseline Cr 1.3-2) , DM on insulin, Atrial flutter, CAD, TIA, BPH with urinary retention who presented with complaints of chest pain, unilateral extremity weakness and facial asymmetry with Cr of 2.5. #Acute on Chronic Renal Insufficiency will need to r/o nephrolithiaiss/urinary tract obstruction check US of kidney and bladder FeNa is 1.38 which is indeterminate continue gentle IVF holding ARB for now Renal function already improving Trend BUN/Cr #UA suggestive of UTI no symptoms now check urine culture #TIA/CVA with multiple cortical infarcts seen on MRI on heparin gtt Neurology following #Chest Pain on Tele CK WNL, Troponins are flat #BPH/urinary retention check bladder US continue flomax #DM Type 2 continue insulin sliding scale Thank you Will follow Armando Sparks Do
[2017-11-29 09:34] LABS: INR 1.08 (0.82-1.09); PROTHROMBIN TIME (PATIENT) 12.2 SEC (9.98-11.88)
[2017-11-29] MEDS ORDERED: MAGNESIUM OXIDE 400 MG TABLET (FP) PO ONE ×2 (09:35→12:15)
[2017-11-29] MEDS ORDERED: LOSARTAN POTASSIUM 50 MG TABLET (FP) PO SCH (10:00)
[2017-11-29] MEDS: HEPARIN NA (PORCINE) 5,000 UNITS/ML 1ML VIAL IVPUSH PRN ×3 (10:20→23:25)
[2017-11-29] MEDS: TAMSULOSIN HCL 0.4 MG CAP.ER.24H (FP) PO SCH (10:23)
[2017-11-29] MEDS: amLODIPine BESYLATE 2.5 MG TABLET (FP) PO SCH (10:23)
[2017-11-29] MEDS: METOPROLOL TARTRATE 25 MG TABLET (FP) PO SCH ×2 (10:23→21:52)
[2017-11-29] MEDS: RANOLAZINE E.R. 500 MG TABLET (FP) PO SCH ×2 (10:23→21:52)
[2017-11-29] MEDS: ISOSORBIDE MONONITRATE 30 MG TAB.SR.24H (FP) PO SCH (10:23)
[2017-11-29] MEDS: RANITIDINE HCL 150 MG TABLET (FP) PO SCH (10:23)
--- NOTE | 2017-11-29 11:39 | EKG ---
Test Reason : Blood Pressure : / mmHG Vent. Rate : 065 BPM Atrial Rate : 065 BPM P-R Int : 156 ms QRS Dur : 094 ms QT Int : 422 ms P-R-T Axes : 050 021 144 degrees QTc Int : 438 ms NORMAL SINUS RHYTHM ABNORMAL ECG Confirmed by MD BERTIN, FRIEDA ([id number]) on 11/29/2017 11:39:45 AM Referred By: Confirmed By:FRIEDA DENTON MD
--- NOTE | 2017-11-29 13:15 | PN ---
Progress Note (short form) - Note Progress Note: Subjective: The patient was seen and examined at the bedside, he reports feeling better today, denies any chest pain at this time. Current Medications Generic Name Dose Route Start Last Admin Trade Name Freq PRN Reason Stop Dose Admin Acetaminophen 650 mg 11/28/17 20:25 11/28/17 20:38 Tylenol - PO 650 mg Q6H PRN Administration PAIN Amlodipine Besylate 2.5 mg 11/29/17 10:00 11/29/17 10:23 Norvasc - PO 2.5 mg DAILY LONNIE Administration Gemfibrozil 600 mg 11/29/17 16:30 Lopid - PO BID@0700,1630 LONNIE Heparin Sodium (Porcine) 1,000 unit 11/28/17 16:17 11/29/17 10:20 Heparin - IVPUSH 1,000 unit PRN PRN Administration Heparin Heparin Sodium (Porcine) 5,000 unit 11/28/17 16:17 11/29/17 00:57 Heparin - IVPUSH 5,000 unit PRN PRN Administration Heparin Heparin Sodium (Porcine) 25, 500 mls @ 20 mls/hr 11/28/17 16:30 11/29/17 10: 20 000 unit/ Sodium Chloride IV 1,250 unit/hr TITR LONNIE 25 mls/hr Protocol Titration 1,000 UNIT/HR Insulin Aspart 0 vial 11/28/17 13:08 11/29/17 12:10 Novolog Vial Sliding Scale - SQ 4 units ACHS LONNIE Administration Protocol Insulin Detemir 20 units 11/28/17 22:00 11/29/17 07:00 Levemir Vial SQ 20 units BID@0700,2200 LONNIE Administration Isosorbide Mononitrate 30 mg 11/29/17 10:00 11/29/17 10:23 Imdur - PO 30 mg DAILY LONNIE Administration Metoprolol Tartrate 25 mg 11/28/17 22:00 11/29/17 10:23 Lopressor - PO 25 mg BID LONNIE Administration Nitroglycerin 0.4 mg 11/28/17 13:06 11/28/17 20:39 Nitrostat - SL 0.4 mg PRN PRN Administration FOR CHEST PAIN Non-Formulary Medication 625 mg 11/28/17 22:00 Colesevelam Hcl [Welchol (Nf)] PO BID [facility] Ranitidine HCl 150 mg 11/29/17 10:00 11/29/17 10:23 Zantac - PO 150 mg DAILY LONNIE Administration Ranolazine 500 mg 11/28/17 22:00 11/29/17 10:23 Ranexa - PO 500 mg BID LONNIE Administration Tamsulosin HCl 0.4 mg 11/29/17 10:00 11/29/17 10:23 Flomax - PO 0.4 mg DAILY LONNIE Administration Warfarin Sodium 5 mg 11/29/17 18:00 Coumadin - PO DAILY@1800 [facility] Objective: Vital Signs Period Temp Pulse Resp BP Sys/Crawford Pulse Ox Last 24 Hr 97.7 F-98.3 F 66-80 18-20 122-158/60-86 98 Physical Exam: General: NAD, A&Ox1 (person only) HEENT: Mild right mouth droop Lungs: CTA bilaterally Heart: RRR, S1S2 Abd: Soft, non-tender, non-distended. Normoactive bowel sounds Ext: Warm, well-perfused. 2+ DP/PT bilaterally CBCD WBC 6.3 K/mm3 (4.0-10.0) 11/29/17 07:15 RBC 3.80 M/mm3 (4.00-5.60) L 11/29/17 07:15 Hgb 11.8 GM/dL (11.7-16.9) 11/29/17 07:15 Hct 35.2 % (35.4-49) L 11/29/17 07:15 MCV 92.6 fl (80-96) 11/29/17 07:15 MCHC 33.7 g/dl (32.0-35.9) 11/29/17 07:15 RDW 13.6 % (11.9-15.9) 11/29/17 07:15 Plt Count 319 K/MM3 (134-434) 11/29/17 07:15 MPV 8.5 fl (7.5-11.1) 11/29/17 07:15 CMP Sodium 138 mmol/L (136-145) 11/29/17 07:15 Potassium 3.7 mmol/L (3.5-5.1) D 11/29/17 07:15 Chloride 105 mmol/L (98-107) 11/29/17 07:15 Carbon Dioxide 22 mmol/L (21-32) 11/29/17 07:15 Anion Gap 11 (8-16) 11/29/17 07:15 BUN 31 mg/dL (7-18) H 11/29/17 07:15 Creatinine 1.5 mg/dL (0.7-1.3) H D 11/29/17 07:15 Creat Clearance w eGFR 45.87 (>60) 11/29/17 07:15 Random Glucose 153 mg/dL (74-106) H D 11/29/17 07:15 Calcium 8.4 mg/dL (8.5-10.1) L 11/29/17 07:15 Total Bilirubin 0.2 mg/dL (0.2-1.0) 11/29/17 07:15 AST 15 U/L (15-37) D 11/29/17 07:15 ALT 13 U/L (12-78) 11/29/17 07:15 Alkaline Phosphatase 122 U/L (45-117) H 11/29/17 07:15 Total Protein 6.7 g/dl (6.4-8.2) 11/29/17 07:15 Albumin 2.9 g/dl (3.4-5.0) L 11/29/17 07:15 CARDIAC ENZYMES Creatine Kinase 104 IU/L (39-308) 11/29/17 08:49 Troponin I 0.32 ng/ml (0.00-0.05) H D 11/29/17 08:49 Assessment: This is a 72 year old male with PMHx of HTN, hyperlipidemia, IDDM, a.fib (on Eliquis), CAD s/p stenting 5 years ago, TIAs, short term memory deficits, BPH, CKD stage 3, renal calculi, chronic hip pain, diverticulosis, who presented to the ED with chest pain and an episode of right sided facial droop and weakness which has since resolved. Plan: 1) Acute CVA - MRI brain with scattered, acute cortical infarcts involving the right frontal , right parietal and right parieto-occipital lobe suggesting a central embolic phenomenon - Patient on Eliquis at home for a.fib, concern for non-compliance vs. failure of Eliquis therapy - Started on Heparin gtt last night, will bridge to Coumadin as his compliance will be measurable - Allergy to statins - Continue ASA - Continue Lopid - Continue Welchol - Appreciate neurology consult 2) Atypical chest pain - Elevated trop, continue to trend - Chest pain reproducible on exam - Continue ASA - F/u cardiology consult 3) S/p fall - Patient reports no head trauma however has short term memory deficits - Head CT and MRI with no intracranial hemorrhage 4) LORY on CKD - Improving - Kidney bladder ultrasound pending - FeNa: 1.38 - UA with 3+ leuks, hx of ESBL uti, Ertapenem 1g x1 given yesterday. F/u ID consult - Appreciate nephrology consult 5) CAD s/p cardiac stents - 11/16/17 Echo: LV borderline dilated, LV function normal; RV normal; BLAE; mild MR; trace to mild TR; trace AI - Hold Losartan 2/2 LORY - Continue Ranexa 6) Paroxysmal A.fib - Heparin gtt 7) IDDM - Continue Levemir - BGM ACHS - ISS ACHS 8) F/E/N: - Diabetic, low sodium diet - Monitor electrolytes 9) Prophylaxis: - Heparin gtt - Speech and swallow evaluation - PT evaluation 10) Dispo: - Requires continued inpatient care CODE STATUS: FULL CODE Visit type - Emergency Visit Emergency Visit: Yes ED Registration Date: 11/28/17 Care time: The patient presented to the Emergency Department on the above date and was hospitalized for further evaluation of their emergent condition. - New Patient This patient is new to me today: No - Critical Care Critical Care patient: No
[2017-11-29] MEDS ORDERED: PT OWN MED DRAWER 7, Y5N ONE ×2 (16:21→17:04)
[2017-11-29] MEDS: GEMFIBROZIL 600 MG TABLET (FP) PO SCH (16:25)
--- NOTE | 2017-11-29 16:27 | PN ---
Progress Note (short form) - Note Progress Note: ID Consult dictated Recurrent UTI Hx ESBL Nephrolithiasis Azotemia Pending c/s, empiric ertapenem
[2017-11-29] MEDS: ERTAPENEM SODIUM 1 GM in SODIUM CHLORIDE 100 ML IVPB SCH (17:10)
[2017-11-29] MEDS ORDERED: WARFARIN NA 5 MG TABLET (UD) PO SCH (18:00)
--- NOTE | 2017-11-29 21:17 | CON.CARD ---
Consult Consult Specialty:: Cardiology Referred by:: Hospitalist Reason for Consultation:: Cardiac evaluation - History of Present Illness Chief Complaint: Facial droop and chest pain History of Present Illness: Patient is a 72 year old male well known to our service with underlying history of coronary artery disease S/P multiple coronary intervention with stenting, angina pectoris, diastolic LV dysfunction and failure, paroxysmal atrial fibrillation [id number] score of 5 on Eliquis, hypertension/hypertensive cardiovascular disease, hypercholesterolemia, cholelithiasis, nephrolithiasis, benign prostatic hypertrophy, recurrent UTIs and CKD who presents with chest pain and right sided facial droop and weakness. Patient took SL NTG with relief of chest pain described as stabbing type symptoms. Monitor does not reveal any significatn pauses or any tachycardic episodes. He denies shortness of breath or palpitations. He denies paroxysmal nocturnal dyspnea or orthopnea. He denies fever or chills. He denies nausea, vomiting, diarrhea or abdominal pain. He denies headache or lightheadedness. Cardiology consultation was called for further evaluation. - History Source History Provided By: Patient, Medical Record Limitations to Obtaining History: Clinical Condition - Past Medical History Cardio/Vascular: Yes: AFIB, CAD, Deep Vein Thrombosis, HTN, Hyperlipdemia Pulmonary: Yes: Sleep Apnea Hepatobiliary: Yes: Cholelithiasis Renal/: Yes: Renal Inusuff, BPH, Renal Calculi Endocrine: Yes: Diabetes Mellitus - Past Surgical History Past Surgical History: Yes: Appendectomy, Joint Replacement (Hip surgery for fracture right femur, ORIF right ankle, hip replacement) - Alcohol/Substance Use Hx Alcohol Use: No - Smoking History Smoking history: Former smoker Have you smoked in the past 12 months: No Aproximately how many cigarettes per day: 0 If you are a former smoker, when did you quit?: 1995 - Social History Usual Living Arrangement: With Spouse ADL: Independent Home Medications - Allergies Allergies/Adverse Reactions: Allergies Allergy/AdvReac Type Severity Reaction Status Date / Time [id number] Reductase Allergy Unknown Verified 11/28/17 05:54 Inhibitor lactose AdvReac Verified 11/28/17 05:54 - Home Medications Home Medications: Ambulatory Orders Tamsulosin HCl [Flomax -] 0.4 mg PO DAILY #10 capsule 06/01/16 Gemfibrozil [Lopid] 600 mg PO BID 10/14/16 Losartan Potassium [Cozaar -] 50 mg PO DAILY 10/14/16 Nitroglycerin [Nitrostat] 0.4 mg SL PRN PRN 10/14/16 Ranolazine [Ranexa -] 500 mg PO BID tab 11/01/16 Apixaban [Eliquis -] 5 mg PO BID #30 tablet 11/20/16 Colesevelam HCl [Welchol (Nf)] 625 mg PO BID #30 tablet 11/20/16 Ranitidine [Zantac -] 150 mg PO DAILY #20 tablet 11/20/16 Insulin Sliding Scale [Novolog Vial Sliding Scale -] 0 units SQ QID PRN Amlodipine Besylate [Norvasc -] 2.5 mg PO DAILY #30 tablet 02/10/17 Isosorbide Mononitrate [Imdur -] 30 mg PO DAILY #30 tab 02/10/17 Metoprolol Tartrate [Lopressor -] 25 mg PO BID #60 tablet 02/10/17 Insulin (Levemir) [Levemir Vial] 20 units SQ BID 11/12/17 Nitrofurantoin Monohyd/M-Cryst [Macrobid -] 100 mg PO BID #13 capsule 11/17/17 Family Disease History - Family Disease History Family Disease History: Diabetes: Grandparent Review of Systems - Review of Systems Constitutional: denies: Chills, Fever Cardiovascular: reports: Chest Pain. denies: Palpitations, Shortness of Breath Respiratory: denies: Cough, Hemoptysis, Orthopnea, PND, SOB, SOB on Exertion Gastrointestinal: denies: Abdominal Pain, Constipation, Diarrhea, Melena, Nausea , Rectal Bleeding, Vomiting Genitourinary: denies: Dysuria, Hematuria Neurological: reports: Other (Facial droop). denies: Dizziness, Headache, Seizure, Syncope Vital Signs: Vital Signs Temperature 98.8 F 11/29/17 17:39 Pulse Rate 65 11/29/17 17:39 Respiratory Rate 20 11/29/17 17:39 Blood Pressure 128/60 11/29/17 17:39 O2 Sat by Pulse Oximetry (%) 98 11/29/17 09:00 Constitutional: Yes: Well Nourished Eyes: Yes: PERRL HENT: Yes: Atraumatic Neck: Yes: Supple Respiratory: Yes: CTA Bilaterally Gastrointestinal: Yes: Normal Bowel Sounds, Soft. No: Tenderness Cardiovascular: Yes: Regular Rate and Rhythm JVD: No Carotid Bruit: No PMI: Non-Displaced Heart Sounds: Yes: S1, S2. No: Gallop Murmur: Yes: Systolic Murmur, Grade 1 Edema: No - Other Data Labs, Other Data: CBC, BMP 11/29/17 07:15 11/29/17 07:15 INR, PTT INR 1.08 (0.82-1.09) 11/29/17 08:49 Troponin, BNP 11/29/17 11/29/17 08:49 14:30 Troponin I 0.32 H D 0.23 H Laboratory Results - last 24 hr 11/28/17 11/29/17 11/29/17 21:11 00:05 06:32 WBC RBC Hgb Hct MCV MCH MCHC RDW Plt Count MPV Neutrophils % Lymphocytes % Monocytes % Eosinophils % Basophils % PT with INR INR PTT (Actin FS) 38.8 H Sodium Potassium Chloride Carbon Dioxide Anion Gap BUN Creatinine Creat Clearance w eGFR POC Glucometer 298 158 Random Glucose Calcium Phosphorus Magnesium Total Bilirubin AST ALT Alkaline Phosphatase Creatine Kinase Troponin I Total Protein Albumin Triglycerides Cholesterol Total LDL Cholesterol HDL Cholesterol 11/29/17 11/29/17 11/29/17 07:15 07:15 07:15 WBC 6.3 RBC 3.80 L Hgb 11.8 Hct 35.2 L MCV 92.6 MCH 31.2 MCHC 33.7 RDW 13.6 Plt Count 319 MPV 8.5 Neutrophils % 42.1 L D Lymphocytes % 43.9 H D Monocytes % 8.8 Eosinophils % 3.9 D Basophils % 1.3 PT with INR INR PTT (Actin FS) Sodium 138 Potassium 3.7 D Chloride 105 Carbon Dioxide 22 Anion Gap 11 BUN 31 H Creatinine 1.5 H D Creat Clearance w eGFR 45.87 POC Glucometer Random Glucose 153 H D Calcium 8.4 L Phosphorus 2.9 Magnesium 1.3 L Total Bilirubin 0.2 AST 15 D ALT 13 Alkaline Phosphatase 122 H Creatine Kinase Troponin I Total Protein 6.7 Albumin 2.9 L Triglycerides 269 H D Cancelled Cholesterol 222 H Cancelled Total LDL Cholesterol 153 H D Cancelled HDL Cholesterol 35 L Cancelled 11/29/17 11/29/17 11/29/17 08:49 08:49 08:49 WBC RBC Hgb Hct MCV MCH MCHC RDW Plt Count MPV Neutrophils % Lymphocytes % Monocytes % Eosinophils % Basophils % PT with INR 12.20 H INR 1.08 PTT (Actin FS) 43.3 H Sodium Potassium Chloride Carbon Dioxide Anion Gap BUN Creatinine Creat Clearance w eGFR POC Glucometer Random Glucose Calcium Phosphorus Magnesium Total Bilirubin AST ALT Alkaline Phosphatase Creatine Kinase 104 Troponin I 0.32 H D Total Protein Albumin Triglycerides Cholesterol Total LDL Cholesterol HDL Cholesterol 11/29/17 11/29/17 11/29/17 11:56 14:30 14:30 WBC RBC Hgb Hct MCV MCH MCHC RDW Plt Count MPV Neutrophils % Lymphocytes % Monocytes % Eosinophils % Basophils % PT with INR INR PTT (Actin FS) 49.2 H Sodium Potassium Chloride Carbon Dioxide Anion Gap BUN Creatinine Creat Clearance w eGFR POC Glucometer 232 Random Glucose Calcium Phosphorus Magnesium Total Bilirubin AST ALT Alkaline Phosphatase Creatine Kinase 92 Troponin I 0.23 H Total Protein Albumin Triglycerides Cholesterol Total LDL Cholesterol HDL Cholesterol Normal sinus rhythm Imaging - Results Chest X-ray: Report Reviewed (Atelectasis) Cat Scan: Report Reviewed (Head CT no intracranial pathology) MRI: Report Reviewed (Brain MRI-scattered acute cortical infarct right frontal, parietal and parietooccipital) EKG: Report Reviewed Problem List - Problems (1) CVA (cerebral vascular accident) Code(s): I63.9 - CEREBRAL INFARCTION, UNSPECIFIED Qualifiers: CVA mechanism: embolism Precerebral and cerebral artery: middle cerebral artery Laterality of affected vessel: right Qualified Code(s): I63.411 - Cerebral infarction due to embolism of right middle cerebral artery (2) CAD (coronary artery disease) Code(s): I25.10 - ATHSCL HEART DISEASE OF [place] CORONARY ARTERY W/O ANG PCTRS Qualifiers: Coronary Disease-Associated Artery/Lesion type: [place] artery [place] vs. transplanted heart: [place] heart Associated angina: without angina Qualified Code(s): I25.10 - Atherosclerotic heart disease of [place] coronary artery without angina pectoris (3) CKD (chronic kidney disease) Code(s): N18.9 - CHRONIC KIDNEY DISEASE, UNSPECIFIED Qualifiers: Chronic kidney disease stage: stage 3 (moderate) Qualified Code(s): N18.3 - Chronic kidney disease, stage 3 (moderate) (4) Cholelithiasis without obstruction Code(s): K80.20 - CALCULUS OF GALLBLADDER W/O CHOLECYSTITIS W/O OBSTRUCTION (5) Demand ischemia Code(s): I24.8 - OTHER FORMS OF ACUTE ISCHEMIC HEART DISEASE (6) 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 Code(s): E11.9 - TYPE 2 DIABETES MELLITUS WITHOUT COMPLICATIONS Qualifiers: 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 type: type 2 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 complication status: without complication 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 fdc insulin use: without fdc use Qualified Code(s): E11.9 - Type 2 diabetes mellitus without complications (7) HTN (hypertension) Code(s): I10 - ESSENTIAL (PRIMARY) HYPERTENSION Qualifiers: Hypertension type: essential hypertension Qualified Code(s): I10 - Essential (primary) hypertension (8) Hypercholesteremia Code(s): E78.0 - PURE HYPERCHOLESTEROLEMIA * DO NOT USE * (9) Kidney stone Code(s): N20.0 - CALCULUS OF KIDNEY (10) Obstructive sleep apnea of adult Code(s): G47.33 - OBSTRUCTIVE SLEEP APNEA (ADULT) (PEDIATRIC) (11) Paroxysmal a-fib Code(s): I48.0 - PAROXYSMAL ATRIAL FIBRILLATION (12) S/P coronary artery stent placement Code(s): Z95.5 - PRESENCE OF CORONARY ANGIOPLASTY IMPLANT AND GRAFT (13) UTI (urinary tract infection) Code(s): N39.0 - URINARY TRACT INFECTION, SITE NOT SPECIFIED Qualifiers: Urinary tract infection type: site unspecified Hematuria presence: with hematuria Qualified Code(s): N39.0 - Urinary tract infection, site not specified; R31.9 - Hematuria, unspecified; R31.9 - Hematuria, unspecified Assessment/Plan 1. Clinical presentation c/w CVA - suspect embolic source with the presence of history of atrial fibrillation 2. Atrial fibrillation [id number] score of 5 on NOAC - ? noncompliance vs. breakthrough neurologic event despite NOAC 3. CAD, PCI/stent, angina pectoris 4. Diastolic LV dysfunction, chronic class 1 NYHA classification LV failur - euvolemic/compensated 5. HTN/HCVD 6. Diabetes Mellitus 7. Hypercholesterolemia 8. KATJA 9. CKD 10. Elevated troponin due to demand ischemia 11. History of obstructive uropathy, BPH with history of UTI 12. History of nephrolithiasis 13. Anemia PLAN: 1. Neuro input noted. Continue Heparin drip. Probably will need to initiate Coumadin as patient had symptoms on Eliquis (need to clarify whether he was compliant with medication). INR needs to be followed closely. 2. Transthoracic echocardiography to follow LV/RV and valvular function. 3. Continue Metoprolol, Amlodipine and Ranexa. Continue Imdur. 4. ARB (Losartan) held pending renal function recovery 5. Antibiotic coverage 6. Trend troponin Further plans are to follow Riley Brandt MD
[2017-11-30] MEDS: INSULIN DETEMIR 100 UNITS/ML MDV SQ SCH ×2 (06:50→23:00)
[2017-11-30] MEDS: GEMFIBROZIL 600 MG TABLET (FP) PO SCH ×2 (06:51→16:04)
[2017-11-30] MEDS: INSULIN SLIDING SCALE (NOVOLOG) 1 VIAL SQ SCH ×4 (06:51→23:01)
[2017-11-30 07:05] LABS: HEMATOCRIT 35.6 % (35.4-49); HEMOGLOBIN 11.9 GM/dL (11.7-16.9); MCH 31.1 pg (25.7-33.7); MCHC 33.4 g/dl (32.0-35.9); MEAN CELL VOLUME 93.1 fl (80-96); MEAN PLT VOLUME 8.6 fl (7.5-11.1); PLATELET COUNT 309 K/MM3 (134-434); RBC 3.82 M/mm3 (4.00-5.60); RDW 13.3 % (11.9-15.9); WHITE BLOOD COUNT 6.4 K/mm3 (4.0-10.0)
[2017-11-30 07:35] LABS: ALK PHOS 122 U/L (45-117); ANION GAP 11 (8-16); BILIRUBIN,TOTAL 0.3 mg/dL (0.2-1.0); BLOOD UREA NITROGEN 28 mg/dL (7-18); CHLORIDE 102 mmol/L (98-107); CO2 23 mmol/L (21-32); CREATININE 1.4 mg/dL (0.7-1.3); GLUCOSE,RANDOM 208 mg/dL (74-106); MAGNESIUM 1.4 mg/dL (1.8-2.4); POTASSIUM 4.1 mmol/L (3.5-5.1); SGOT/AST 14 U/L (15-37); SGPT/ALT 16 U/L (12-78); SODIUM 136 mmol/L (136-145); TOT PROT 6.9 g/dl (6.4-8.2)
--- NOTE | 2017-11-30 08:51 | PN ---
Progress Note (short form) - Note Progress Note: 72 year old male with PMHx of HTN, hyperlipidemia, IDDM, a.flutter (on Eliquis) , CAD s/p stenting 5 years ago, TIAs, short term memory deficits, BPH, CKD stage 3, renal calculi, chronic hip pain, diverticulosis, who presented to the ED with chest pain and an episode of right sided facial droop and weakness which has since resolved. The patient reports that last night while in bed he had an episode of stabbing chest pain for which he took nitro and his symptoms resolved. His then states that she noticed he had a right sided facial droop. He states he attempted to get out of bed and slipped onto the floor, but did not hit his head. He eventually was able to get up and his symptoms resolved prior to arriving in the ED. The patient does however state that he is experiencing sharp chest pain when he moves or "presses" on his chest. The patient denies any dizziness, nausea, vomiting, diarrhea, headache, cough. The patient denies any sick contacts. Off note: the patient reports he was recently treated for a UTI and that he is still experiencing some dysuria MRI: Report Reviewed (Scattered right frontal, parietal and parietooccipital small infarcts-likely embolic phenomenon) FU : doing well, no new neuro complaint c/o R ear pain - Past Medical History Cardio/Vascular: Yes: AFIB (not on AC), CAD (with stent), HTN, Hyperlipdemia Pulmonary: Yes: Sleep Apnea Hepatobiliary: Yes: Cholelithiasis Renal/: Yes: Renal Inusuff, BPH, Renal Calculi Endocrine: Yes: Diabetes Mellitus - Past Surgical History Past Surgical History: Yes: Appendectomy, Joint Replacement (Hip surgery for fracture right femur, ORIF right ankle, hip replacement) - Alcohol/Substance Use Hx Alcohol Use: No - Smoking History Smoking history: Current every day smoker Have you smoked in the past 12 months: No Aproximately how many cigarettes per day: 0 If you are a former smoker, when did you quit?: 1995 - Social History Usual Living Arrangement: With Spouse ADL: Independent Home Medications - Allergies Allergies/Adverse Reactions: Allergies Allergy/AdvReac Type Severity Reaction Status Date / Time Honmvoq-Hmo-Mli Reductase Allergy Unknown Verified 11/28/17 05:54 Inhibitor lactose AdvReac Verified 11/28/17 05:54 - Home Medications Home Medications: Ambulatory Orders Tamsulosin HCl [Flomax -] 0.4 mg PO DAILY #10 capsule 06/01/16 Gemfibrozil [Lopid] 600 mg PO BID 10/14/16 Losartan Potassium [Cozaar -] 50 mg PO DAILY 10/14/16 Nitroglycerin [Nitrostat] 0.4 mg SL PRN PRN 10/14/16 Ranolazine [Ranexa -] 500 mg PO BID tab 11/01/16 Apixaban [Eliquis -] 5 mg PO BID #30 tablet 11/20/16 Colesevelam HCl [Welchol (Nf)] 625 mg PO BID #30 tablet 11/20/16 Ranitidine [Zantac -] 150 mg PO DAILY #20 tablet 11/20/16 Insulin Sliding Scale [Novolog Vial Sliding Scale -] 0 units SQ QID PRN Amlodipine Besylate [Norvasc -] 2.5 mg PO DAILY #30 tablet 02/10/17 Isosorbide Mononitrate [Imdur -] 30 mg PO DAILY #30 tab 02/10/17 Metoprolol Tartrate [Lopressor -] 25 mg PO BID #60 tablet 02/10/17 Insulin (Levemir) [Levemir Vial] 20 units SQ BID 11/12/17 Nitrofurantoin Monohyd/M-Cryst [Macrobid -] 100 mg PO BID #13 capsule 11/17/17 Family Disease History - Family Disease History Family Disease History: Diabetes: Grandparent Physical Exam-Neuro Vital Signs: Vital Signs Temperature 98.5 F 11/30/17 06:00 Pulse Rate 59 L 11/30/17 06:00 Respiratory Rate 16 11/30/17 06:00 Blood Pressure 154/76 11/30/17 06:00 O2 Sat by Pulse Oximetry (%) 98 11/29/17 21:00 Labs: CBCD WBC 6.4 K/mm3 (4.0-10.0) 11/30/17 06:43 RBC 3.82 M/mm3 (4.00-5.60) L 11/30/17 06:43 Hgb 11.9 GM/dL (11.7-16.9) 11/30/17 06:43 Hct 35.6 % (35.4-49) 11/30/17 06:43 MCV 93.1 fl (80-96) 11/30/17 06:43 MCHC 33.4 g/dl (32.0-35.9) 11/30/17 06:43 RDW 13.3 % (11.9-15.9) 11/30/17 06:43 Plt Count 309 K/MM3 (134-434) 11/30/17 06:43 MPV 8.6 fl (7.5-11.1) 11/30/17 06:43 CMP Sodium 136 mmol/L (136-145) 11/30/17 06:43 Potassium 4.1 mmol/L (3.5-5.1) 11/30/17 06:43 Chloride 102 mmol/L (98-107) 11/30/17 06:43 Carbon Dioxide 23 mmol/L (21-32) 11/30/17 06:43 Anion Gap 11 (8-16) 11/30/17 06:43 BUN 28 mg/dL (7-18) H 11/30/17 06:43 Creatinine 1.4 mg/dL (0.7-1.3) H 11/30/17 06:43 Creat Clearance w eGFR 49.68 (>60) 11/30/17 06:43 Calcium 9.0 mg/dL (8.5-10.1) 11/30/17 06:43 Total Bilirubin 0.3 mg/dL (0.2-1.0) D 11/30/17 06:43 AST 14 U/L (15-37) L 11/30/17 06:43 ALT 16 U/L (12-78) D 11/30/17 06:43 Alkaline Phosphatase 122 U/L (45-117) H 11/30/17 06:43 Total Protein 6.9 g/dl (6.4-8.2) 11/30/17 06:43 Albumin 3.0 g/dl (3.4-5.0) L 11/30/17 06:43 - Neuro Exam Level Of Consciousness: Yes: Alert, Oriented to Person, Oriented to Place, Oriented to Time Eyes: Yes: PERRL (No field cut noted) Dominant Hand: Right Mini Mental Exam: normal except for mild inattentiveness and able to recall only 1/3 objects.. Cranial Nerves II-XII Intact: (No facial assymetry noted) DTR's: 0 Left Achilles, 0 Right Achilles, 1+ Left Bicep, 1+ Right Bicep, 1+ Left Tricep, 1+ Right Tricep, 1+ Left Brachioradialis, 1+ Right Brachioradialis Babinski: Absent Response to light touch: Normal Response to pain prick: Normal Response to temperature: Normal Response to vibration: Normal Gait: Other (Normal base, somewhat unsteady but does not require assistance, normal stride, a little slow.) Imaging - Results Cat Scan: Report Reviewed (Old left cerebellar and bilateral b/g infarcts.) MRI: Report Reviewed (Scattered right frontal, parietal and parietooccipital small infarcts-likely embolic phenomenon) Assessment/Plan Pt. with Afib, now with a shower of right cerebral emboli. It is unclear whether he was non-compliant with Eliquis or he broke thru, probably former. [id number] score of 5 on IV AC, and coumadin , to better monitor compliance neuro status stable ?ABX for ear pain. Dr Hunt .
[2017-11-30 10:13] LABS: INR 1.07 (0.82-1.09); PROTHROMBIN TIME (PATIENT) 12.1 SEC (9.98-11.88)
[2017-11-30] MEDS: TAMSULOSIN HCL 0.4 MG CAP.ER.24H (FP) PO SCH (10:13)
[2017-11-30] MEDS: RANOLAZINE E.R. 500 MG TABLET (FP) PO SCH ×2 (10:13→23:00)
[2017-11-30] MEDS: METOPROLOL TARTRATE 25 MG TABLET (FP) PO SCH ×2 (10:13→22:58)
[2017-11-30] MEDS: amLODIPine BESYLATE 2.5 MG TABLET (FP) PO SCH (10:13)
[2017-11-30] MEDS: ISOSORBIDE MONONITRATE 30 MG TAB.SR.24H (FP) PO SCH (10:13)
[2017-11-30] MEDS: RANITIDINE HCL 150 MG TABLET (FP) PO SCH (10:13)
[2017-11-30] MEDS: ASPIRIN 81 MG CHEWABLE TABLETS PO SCH (10:13)
[2017-11-30] MEDS: MAGNESIUM OXIDE 400 MG TABLET (FP) PO SCH ×2 (10:14→23:00)
--- NOTE | 2017-11-30 10:15 | PN ---
Progress Note, Physician History of Present Illness: C/O intermittant L chest pain, R ear pain No urinary tract complaints denies dysuria/ hematuria No suprapubic or flank pain No fever/ chills Afebrile WBC WNL Urine c/s no growth Sono No hydronephrosis - Current Medication List Current Medications: Active Medications Acetaminophen (Tylenol -) 650 mg PO Q6H PRN PRN Reason: PAIN Last Admin: 11/28/17 20:38 Dose: 650 mg Amlodipine Besylate (Norvasc -) 2.5 mg PO DAILY [facility] Last Admin: 11/29/17 10:23 Dose: 2.5 mg Aspirin (Asa -) 81 mg PO DAILY [facility] Gemfibrozil (Lopid -) 600 mg PO BID@0700,1630 [facility] Last Admin: 11/30/17 06:51 Dose: 600 mg Heparin Sodium (Porcine) (Heparin -) 1,000 unit IVPUSH PRN PRN PRN Reason: Heparin Last Admin: 11/29/17 23:25 Dose: 1,000 unit Heparin Sodium (Porcine) (Heparin -) 5,000 unit IVPUSH PRN PRN PRN Reason: Heparin Last Admin: 11/29/17 00:57 Dose: 5,000 unit Heparin Sodium (Porcine) 25, (000 unit/ Sodium Chloride) 500 mls @ 20 mls/hr IV TITR LONNIE; 1,000 UNIT/HR PRN Reason: Protocol Last Admin: 11/29/17 16:25 Dose: 1,350 unit/hr, 27 mls/hr Ertapenem 1 gm/ Sodium (Chloride) 100 mls @ 200 mls/hr IVPB DAILY [facility]ON[facility]IE PRN Reason: Protocol Last Admin: 11/29/17 17:10 Dose: 200 mls/hr Insulin Aspart (Novolog Vial Sliding Scale -) 0 vial SQ ACHS [facility] PRN Reason: Protocol Last Admin: 11/30/17 06:51 Dose: 4 units Insulin Detemir (Levemir Vial) 20 units SQ BID@0700,2200 [facility] Last Admin: 11/30/17 06:50 Dose: 20 units Isosorbide Mononitrate (Imdur -) 30 mg PO DAILY [facility] Last Admin: 11/29/17 10:23 Dose: 30 mg Magnesium Oxide (Mag-Ox -) 400 mg PO BID [facility] Metoprolol Tartrate (Lopressor -) 25 mg PO BID [facility] Last Admin: 11/29/17 21:52 Dose: 25 mg Nitroglycerin (Nitrostat -) 0.4 mg SL PRN PRN PRN Reason: FOR CHEST PAIN Last Admin: 11/28/17 20:39 Dose: 0.4 mg Non-Formulary Medication (Colesevelam Hcl [Welchol (Nf)]) 625 mg PO BID [facility] Ranitidine HCl (Zantac -) 150 mg PO DAILY [facility] Last Admin: 11/29/17 10:23 Dose: 150 mg Ranolazine (Ranexa -) 500 mg PO BID [facility] Last Admin: 11/29/17 21:52 Dose: 500 mg Tamsulosin HCl (Flomax -) 0.4 mg PO DAILY [facility] Last Admin: 11/29/17 10:23 Dose: 0.4 mg Warfarin Sodium (Coumadin -) 5 mg PO DAILY@1800 [facility] Last Admin: 11/29/17 17:10 Dose: 5 mg - Objective Vital Signs: Vital Signs Temperature 98.5 F 11/30/17 06:00 Pulse Rate 59 L 11/30/17 06:00 Respiratory Rate 16 11/30/17 06:00 Blood Pressure 154/76 11/30/17 06:00 O2 Sat by Pulse Oximetry (%) 98 11/29/17 21:00 Constitutional: Yes: No Distress Eyes: Yes: Conjunctiva Clear HENT: Yes: Other (R TM injected; erythema ear canal; no sherif pus. L TM not visualized; impected cerumen) Cardiovascular: Yes: Regular Rate and Rhythm, S1, S2 Respiratory: Yes: CTA Bilaterally Gastrointestinal: Yes: Normal Bowel Sounds, Soft, Tenderness Edema: Yes Edema: LLE: 1+, RLE: 1+ Labs: CBC, BMP 11/30/17 06:43 11/30/17 06:43 INR, PTT INR 1.08 (0.82-1.09) 11/29/17 08:49 Assessment/Plan Recurrent UTI. Urine c/ no growth S/P TIA Chest pain syndrome R otitis media Azotemia- improved Substitute po Augmentin for treatment of otitis
[2017-11-30] MEDS: HEPARIN NA (PORCINE) 5,000 UNITS/ML 1ML VIAL IVPUSH PRN (10:17)
--- NOTE | 2017-11-30 10:33 | PN ---
Progress Note, Physician History of Present Illness: No further chest discomfort, right facial droop improving. - Current Medication List Current Medications: Active Medications Acetaminophen (Tylenol -) 650 mg PO Q6H PRN PRN Reason: PAIN Last Admin: 11/28/17 20:38 Dose: 650 mg Amlodipine Besylate (Norvasc -) 2.5 mg PO DAILY [facility] Last Admin: 11/30/17 10:13 Dose: 2.5 mg Aspirin (Asa -) 81 mg PO DAILY [facility] Last Admin: 11/30/17 10:13 Dose: 81 mg Gemfibrozil (Lopid -) 600 mg PO BID@0700,1630 [facility] Last Admin: 11/30/17 06:51 Dose: 600 mg Heparin Sodium (Porcine) (Heparin -) 1,000 unit IVPUSH PRN PRN PRN Reason: Heparin Last Admin: 11/30/17 10:17 Dose: 1,000 unit Heparin Sodium (Porcine) (Heparin -) 5,000 unit IVPUSH PRN PRN PRN Reason: Heparin Last Admin: 11/29/17 00:57 Dose: 5,000 unit Heparin Sodium (Porcine) 25, (000 unit/ Sodium Chloride) 500 mls @ 20 mls/hr IV TITR LONNIE; 1,000 UNIT/HR PRN Reason: Protocol Last Titration: 11/30/17 10:17 Dose: 1,450 unit/hr, 29 mls/hr Ertapenem 1 gm/ Sodium (Chloride) 100 mls @ 200 mls/hr IVPB DAILY [facility] PRN Reason: Protocol Last Admin: 11/29/17 17:10 Dose: 200 mls/hr Insulin Aspart (Novolog Vial Sliding Scale -) 0 vial SQ ACHS [facility] PRN Reason: Protocol Last Admin: 11/30/17 06:51 Dose: 4 units Insulin Detemir (Levemir Vial) 20 units SQ BID@0700,2200 [facility] Last Admin: 11/30/17 06:50 Dose: 20 units Isosorbide Mononitrate (Imdur -) 30 mg PO DAILY [facility] Last Admin: 11/30/17 10:13 Dose: 30 mg Magnesium Oxide (Mag-Ox -) 400 mg PO BID [facility] Last Admin: 11/30/17 10:14 Dose: 400 mg Metoprolol Tartrate (Lopressor -) 25 mg PO BID [facility] Last Admin: 11/30/17 10:13 Dose: 25 mg Nitroglycerin (Nitrostat -) 0.4 mg SL PRN PRN PRN Reason: FOR CHEST PAIN Last Admin: 11/28/17 20:39 Dose: 0.4 mg Non-Formulary Medication (Colesevelam Hcl [Welchol (Nf)]) 625 mg PO BID [facility] Ranitidine HCl (Zantac -) 150 mg PO DAILY [facility] Last Admin: 11/30/17 10:13 Dose: 150 mg Ranolazine (Ranexa -) 500 mg PO BID [facility] Last Admin: 11/30/17 10:13 Dose: 500 mg Tamsulosin HCl (Flomax -) 0.4 mg PO DAILY [facility] Last Admin: 11/30/17 10:13 Dose: 0.4 mg Warfarin Sodium (Coumadin -) 5 mg PO DAILY@1800 [facility] Last Admin: 11/29/17 17:10 Dose: 5 mg - Objective Vital Signs: Vital Signs Temperature 98.3 F 11/30/17 10:00 Pulse Rate 63 11/30/17 10:00 Respiratory Rate 18 11/30/17 10:00 Blood Pressure 140/68 11/30/17 10:00 O2 Sat by Pulse Oximetry (%) 98 11/29/17 21:00 Constitutional: Yes: No Distress, Calm Neck: Yes: Supple Cardiovascular: Yes: Regular Rate and Rhythm Respiratory: Yes: Regular, Diminished Gastrointestinal: Yes: Normal Bowel Sounds, Soft, Abdomen, Obese Edema: No Labs: CBC, BMP 11/30/17 06:43 11/30/17 06:43 INR, PTT INR 1.07 (0.82-1.09) 11/30/17 10:05 - ....Imaging EKG: Report Reviewed (Tele: SR with PAC, no PAF) Problem List - Problems (1) LORY (acute kidney injury) Code(s): N17.9 - ACUTE KIDNEY FAILURE, UNSPECIFIED (2) Acute ischemic stroke Code(s): I63.9 - CEREBRAL INFARCTION, UNSPECIFIED (3) Afib Code(s): I48.91 - UNSPECIFIED ATRIAL FIBRILLATION Qualifiers: Atrial fibrillation type: paroxysmal Qualified Code(s): I48.0 - Paroxysmal atrial fibrillation (4) CAD (coronary artery disease) Code(s): I25.10 - ATHSCL HEART DISEASE OF [place] CORONARY ARTERY W/O ANG PCTRS Qualifiers: Coronary Disease-Associated Artery/Lesion type: [place] artery [place] vs. transplanted heart: [place] heart Associated angina: without angina Qualified Code(s): I25.10 - Atherosclerotic heart disease of [place] coronary artery without angina pectoris (5) Demand ischemia Code(s): I24.8 - OTHER FORMS OF ACUTE ISCHEMIC HEART DISEASE (6) 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 Code(s): E11.9 - TYPE 2 DIABETES MELLITUS WITHOUT COMPLICATIONS Qualifiers: 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 type: type 2 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 complication status: without complication 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 half-way insulin use: without equipment operator intermodal yard use Qualified Code(s): E11.9 - Type 2 diabetes mellitus without complications (7) HTN (hypertension) Code(s): I10 - ESSENTIAL (PRIMARY) HYPERTENSION Qualifiers: Hypertension type: essential hypertension Qualified Code(s): I10 - Essential (primary) hypertension (8) History of cardiac radiofrequency ablation (RFA) Code(s): Z98.89 - OTHER SPECIFIED POSTPROCEDURAL STATES * DO NOT USE * (9) Hyperlipidemia Code(s): E78.5 - HYPERLIPIDEMIA, UNSPECIFIED Qualifiers: Hyperlipidemia type: mixed hyperlipidemia Qualified Code(s): E78.2 - Mixed hyperlipidemia (10) Obstructive sleep apnea of adult Code(s): G47.33 - OBSTRUCTIVE SLEEP APNEA (ADULT) (PEDIATRIC) (11) Paroxysmal a-fib Code(s): I48.0 - PAROXYSMAL ATRIAL FIBRILLATION (12) S/P coronary artery stent placement Code(s): Z95.5 - PRESENCE OF CORONARY ANGIOPLASTY IMPLANT AND GRAFT (13) UTI (urinary tract infection) Code(s): N39.0 - URINARY TRACT INFECTION, SITE NOT SPECIFIED Qualifiers: Urinary tract infection type: site unspecified Hematuria presence: without hematuria Qualified Code(s): N39.0 - Urinary tract infection, site not specified Assessment/Plan 1. Acute right cerebal embolic CVA in context of atrial fibrillation despite Eliquis 2. Paroxysmal atrial fibrillation [id number] score of 5 on NOAC - ? noncompliance vs. breakthrough neurologic event despite NOAC 3. CAD, PCI/stent, angina pectoris 4. Diastolic LV dysfunction, chronic class 1 NYHA classification LV failure- euvolemic/compensated 5. HTN/HCVD 6. Diabetes Mellitus 7. Hypercholesterolemia 8. KATJA 9. Acute on CKD improving 10. Elevated troponin due to demand ischemia 11. History of obstructive uropathy, BPH with history of UTI 12. History of nephrolithiasis 13. Anemia PLAN: 1. Neuro input appreciated. Continue Heparin drip-> Coumadin per INR to confirm compliance, ASA 81 qd 2. F/u transthoracic echocardiography to follow LV/RV and valvular function. 3. Continue Metoprolol 25 bid, Amlodipine 2.5 qd, Lopid 600 bid, Welchol 625 bid , Imdur 30 qd and Ranexa 500 bid. 4. ARB (Losartan) held pending renal function recovery 5. Empric antibiotic coverage for UTI 6. GI protection, trops have peaked I
[2017-11-30] MEDS ORDERED: PT OWN MED DRAWER 7, Y5N ONE (10:54)
[2017-11-30] MEDS: ERTAPENEM SODIUM 1 GM in SODIUM CHLORIDE 100 ML IVPB SCH (11:07)
--- NOTE | 2017-11-30 13:17 | CONS ---
DATE OF CONSULTATION: HISTORY: The patient is a 72-year-old male with multiple medical comorbidities evaluated for possible recurrent urinary tract infection. He has a history of nephrolithiasis and recurrent urinary tract infections with ESBL in the past. He was admitted to the hospital on November 28, 2017. He had gone to bed at approximately 11 p.m. He was awakened at 4 a.m. with right rib pain. His noted that he had a right facial droop and right upper and lower extremity weakness. He was brought to the emergency room to rule out an acute CVA. According to the notes, his neurological deficits had resolved prior to his arrival at the emergency room. He was very weak at home and had apparently been found on the floor, however, denied any head trauma or other significant traumatic injury. In the emergency room, his blood sugar was also noted to be markedly elevated at 489. The patient complains of right flank pain, which has been chronic in nature. He denies any dysuria or hematuria. No complaints of frequency or urgency. PAST MEDICAL HISTORY: Positive for hypertension, hyperlipidemia, diabetes mellitus, atrial fibrillation, coronary artery disease, coronary artery stent, TIAs, BPH, chronic kidney disease, nephrolithiasis, cholelithiasis, diverticulosis. ALLERGIES: STATINS and LACTULOSE. MEDICATIONS: Include Tylenol, amlodipine, aspirin, Lopid, heparin, insulin, isosorbide, metoprolol, Zantac, Ranexa, Flomax, Coumadin. SOCIAL HISTORY: Lives at home with his significant other. Positive history of tobacco use. SYSTEMS REVIEW: Neurologic: As per HPI. Cardiac: As per HPI. Respiratory: Negative for cough or sputum production. Gastrointestinal: Negative vomiting or diarrhea. Genitourinary: As per HPI. LABORATORY DATA: White count 6.3, hematocrit 35.2, platelets 319. BUN 31, creatinine 1.5. Urinalysis 608 white cells. Urine culture pending. PHYSICAL EXAMINATION: General: He is awake and alert. He is in no acute distress. Vital Signs: Temperature 98.4, blood pressure 135/66, pulse 80 and regular, respirations 19 per minute. HEENT: Sclerae anicteric. Heart: Sounds S1, S2. Lungs: Clear. Abdomen: Soft. Slight right CVA tenderness. No suprapubic tenderness. Extremities: Positive for edema. IMPRESSION: 1. Recurrent urinary tract infections. 2. History of extended-spectrum beta-lactamase in the urine. 3. History of nephrolithiasis. 4. Azotemia. PLAN: Pending culture results, empiric antibiotic coverage with ertapenem. Contact precautions for history of ESBL. Case discussed with the patient's present at the time of examination. Thank you for the kind referral. MARIIA SAMUELS M.D. [id number]
--- NOTE | 2017-11-30 16:04 | PN ---
Progress Note (short form) - Note Progress Note: Subjective: The patient was seen and examined at the bedside, he reports feeling better today Current Medications Generic Name Dose Route Start Last Admin Trade Name Jake PRN Reason Stop Dose Admin Acetaminophen 650 mg 11/28/17 20:25 11/28/17 20:38 Tylenol - PO 650 mg Q6H PRN Administration PAIN Amlodipine Besylate 2.5 mg 11/29/17 10:00 11/30/17 10:13 Norvasc - PO 2.5 mg DAILY [facility]ON[facility]IE Administration Amoxicillin/Clavulanate Potassium 1 tab 11/30/17 17:30 Augmentin - 875mg Tablet PO BID@0800,1730 [facility] Aspirin 81 mg 11/30/17 10:00 11/30/17 10:13 Asa - PO 81 mg DAILY [facility] Administration Gemfibrozil 600 mg 11/29/17 16:30 11/30/17 06:51 Lopid - PO 600 mg BID@0700,1630 [facility]ON[facility]IE Administration Heparin Sodium (Porcine) 1,000 unit 11/28/17 16:17 11/30/17 10:17 Heparin - IVPUSH 1,000 unit PRN PRN Administration Heparin Heparin Sodium (Porcine) 5,000 unit 11/28/17 16:17 11/29/17 00:57 Heparin - IVPUSH 5,000 unit PRN PRN Administration Heparin Heparin Sodium (Porcine) 25, 500 mls @ 20 mls/hr 11/28/17 16:30 11/30/17 10: 17 000 unit/ Sodium Chloride IV 1,450 unit/hr TITR LONNIE 29 mls/hr Protocol Titration 1,000 UNIT/HR Insulin Aspart 0 vial 11/28/17 13:08 11/30/17 12:01 Novolog Vial Sliding Scale - SQ 2 units ACHS [facility]ON[facility]IE Administration Protocol Insulin Detemir 20 units 11/28/17 22:00 11/30/17 06:50 Levemir Vial SQ 20 units BID@0700,2200 [facility] Administration Isosorbide Mononitrate 30 mg 11/29/17 10:00 11/30/17 10:13 Imdur - PO 30 mg DAILY [facility] Administration Magnesium Oxide 400 mg 11/30/17 10:00 11/30/17 10:14 Mag-Ox - PO 400 mg BID [facility] Administration Metoprolol Tartrate 25 mg 11/28/17 22:00 11/30/17 10:13 Lopressor - PO 25 mg BID [facility] Administration Nitroglycerin 0.4 mg 11/28/17 13:06 11/28/17 20:39 Nitrostat - SL 0.4 mg PRN PRN Administration FOR CHEST PAIN Non-Formulary Medication 625 mg 11/28/17 22:00 Colesevelam Hcl [Welchol (Nf)] PO BID [facility] Ranitidine HCl 150 mg 11/29/17 10:00 11/30/17 10:13 Zantac - PO 150 mg DAILY [facility] Administration Ranolazine 500 mg 11/28/17 22:00 11/30/17 10:13 Ranexa - PO 500 mg BID [facility]ON[facility] Administration Tamsulosin HCl 0.4 mg 11/29/17 10:00 11/30/17 10:13 Flomax - PO 0.4 mg DAILY [facility] Administration Warfarin Sodium 10 mg 11/30/17 15:59 Coumadin - PO DAILY@1800 [facility]ON[facility] Objective: Vital Signs Period Temp Pulse Resp BP Sys/Crawford Pulse Ox Last 24 Hr 98 F-98.8 F 57-65 16-20 128-160/53-83 97-98 Physical Exam: General: NAD, A&Ox1 (person only) HEENT: Mild right mouth droop, improving Lungs: CTA bilaterally Heart: RRR, S1S2 Abd: Soft, non-tender, non-distended. Normoactive bowel sounds Ext: Warm, well-perfused. 2+ DP/PT bilaterally CBCD WBC 6.4 K/mm3 (4.0-10.0) 11/30/17 06:43 RBC 3.82 M/mm3 (4.00-5.60) L 11/30/17 06:43 Hgb 11.9 GM/dL (11.7-16.9) 11/30/17 06:43 Hct 35.6 % (35.4-49) 11/30/17 06:43 MCV 93.1 fl (80-96) 11/30/17 06:43 MCHC 33.4 g/dl (32.0-35.9) 11/30/17 06:43 RDW 13.3 % (11.9-15.9) 11/30/17 06:43 Plt Count 309 K/MM3 (134-434) 11/30/17 06:43 MPV 8.6 fl (7.5-11.1) 11/30/17 06:43 CMP Sodium 136 mmol/L (136-145) 11/30/17 06:43 Potassium 4.1 mmol/L (3.5-5.1) 11/30/17 06:43 Chloride 102 mmol/L (98-107) 11/30/17 06:43 Carbon Dioxide 23 mmol/L (21-32) 11/30/17 06:43 Anion Gap 11 (8-16) 11/30/17 06:43 BUN 28 mg/dL (7-18) H 11/30/17 06:43 Creatinine 1.4 mg/dL (0.7-1.3) H 11/30/17 06:43 Creat Clearance w eGFR 49.68 (>60) 11/30/17 06:43 Calcium 9.0 mg/dL (8.5-10.1) 11/30/17 06:43 Total Bilirubin 0.3 mg/dL (0.2-1.0) D 11/30/17 06:43 AST 14 U/L (15-37) L 11/30/17 06:43 ALT 16 U/L (12-78) D 11/30/17 06:43 Alkaline Phosphatase 122 U/L (45-117) H 11/30/17 06:43 Total Protein 6.9 g/dl (6.4-8.2) 11/30/17 06:43 Albumin 3.0 g/dl (3.4-5.0) L 11/30/17 06:43 Microbiology 11/28/17 15:00 Urine - Urine Clean Catch Urine Culture - Final NO GROWTH OBTAINED Assessment: This is a 72 year old male with PMHx of HTN, hyperlipidemia, IDDM, a.fib (on Eliquis), CAD s/p stenting 5 years ago, TIAs, short term memory deficits, BPH, CKD stage 3, renal calculi, chronic hip pain, diverticulosis, who presented to the ED with chest pain and an episode of right sided facial droop and weakness which has since resolved. Plan: 1) Acute CVA - MRI brain with scattered, acute cortical infarcts involving the right frontal , right parietal and right parieto-occipital lobe suggesting a central embolic phenomenon - Patient on Eliquis at home for a.fib, concern for non-compliance vs. failure of Eliquis therapy - Continue Heparin gtt bridge to Coumadin (increased to 10mg tonight) - Allergy to statins - Continue ASA - Continue Lopid - Continue Welchol - Appreciate neurology consult 2) Atypical chest pain - Resolved - Elevated trop, peaked at 0.32 - Continue ASA - Appreciate cardiology consult 3) S/p fall - Patient reports no head trauma however has short term memory deficits - Head CT and MRI with no intracranial hemorrhage 4) LORY on CKD - Improving - Kidney/bladder ultrasound: morphologically normal kidneys and urinary bladder with no evidence of hydronephrosis or acute pathology, large post void residual. Markedly enlarged prostate gland - UA with 3+ leuks, hx of ESBL uti, Ertapenem discontinued, urine culture with no growth - Appreciate nephrology consult 5) Right otitis media - Augmentin 6) CAD s/p cardiac stents - 11/16/17 Echo: LV borderline dilated, LV function normal; RV normal; BLAE; mild MR; trace to mild TR; trace AI - Hold Losartan 2/2 LORY - Continue Ranexa 7) Paroxysmal A.fib - Heparin gtt 8) IDDM - Continue Levemir - BGM ACHS - ISS ACHS 9) F/E/N: - Diabetic, low sodium diet - Monitor electrolytes - Hypomagnesemia: MgOx 400mg bid 10) Prophylaxis: - Heparin gtt - Speech and swallow evaluation pending - PT evaluation 11) Dispo: - Requires continued inpatient care CODE STATUS: FULL CODE Visit type - Emergency Visit Emergency Visit: Yes ED Registration Date: 11/28/17 Care time: The patient presented to the Emergency Department on the above date and was hospitalized for further evaluation of their emergent condition. - New Patient This patient is new to me today: No - Critical Care Critical Care patient: No
[2017-11-30] MEDS: HEPARIN - 25,000 UNIT in SODIUM CHLORIDE 495 ML IV SCH (16:50)
--- NOTE | 2017-11-30 17:16 | PN ---
Progress Note (short form) - Note Progress Note: Renal follow up for LORY on CKD Pt seen and examined at the bedside awake and alert no acute complaints on Heparin gtt no SOB, Abd pain, N/V Vital Signs Temperature 98 F 11/30/17 14:15 Pulse Rate 57 L 11/30/17 14:15 Respiratory Rate 16 11/30/17 14:15 Blood Pressure 132/53 11/30/17 14:15 O2 Sat by Pulse Oximetry (%) 97 11/30/17 09:00 Intake & Output 11/27/17 11/28/17 11/29/17 11/30/17 23:59 23:59 23:59 23:59 Intake Total 663 327 0184 Output Total 525 650 800 Balance 335 158 624 Weight 108.182 kg 108.182 kg NAD RRR CTA soft NT/ND No LE edema CBC, BMP 11/30/17 06:43 11/30/17 06:43 Current Medications Acetaminophen (Tylenol -) 650 mg PO Q6H PRN PRN Reason: PAIN Last Admin: 11/28/17 20:38 Dose: 650 mg Amlodipine Besylate (Norvasc -) 2.5 mg PO DAILY [facility] Last Admin: 11/30/17 10:13 Dose: 2.5 mg Amoxicillin/Clavulanate Potassium (Augmentin - 875mg Tablet) 1 tab PO BID@0800, 1730 [facility] Aspirin (Asa -) 81 mg PO DAILY [facility] Last Admin: 11/30/17 10:13 Dose: 81 mg Gemfibrozil (Lopid -) 600 mg PO BID@0700,1630 [facility] Last Admin: 11/30/17 16:04 Dose: 600 mg Heparin Sodium (Porcine) (Heparin -) 1,000 unit IVPUSH PRN PRN PRN Reason: Heparin Last Admin: 11/30/17 10:17 Dose: 1,000 unit Heparin Sodium (Porcine) (Heparin -) 5,000 unit IVPUSH PRN PRN PRN Reason: Heparin Last Admin: 11/29/17 00:57 Dose: 5,000 unit Heparin Sodium (Porcine) 25, (000 unit/ Sodium Chloride) 500 mls @ 20 mls/hr IV TITR LONNIE; 1,000 UNIT/HR PRN Reason: Protocol Last Admin: 11/30/17 16:50 Dose: 1,450 unit/hr, 29 mls/hr Insulin Aspart (Novolog Vial Sliding Scale -) 0 vial SQ ACHS [facility] PRN Reason: Protocol Last Admin: 11/30/17 16:50 Dose: 2 units Insulin Detemir (Levemir Vial) 20 units SQ BID@0700,2200 [facility] Last Admin: 11/30/17 06:50 Dose: 20 units Isosorbide Mononitrate (Imdur -) 30 mg PO DAILY [facility] Last Admin: 11/30/17 10:13 Dose: 30 mg Magnesium Oxide (Mag-Ox -) 400 mg PO BID [facility] Last Admin: 11/30/17 10:14 Dose: 400 mg Metoprolol Tartrate (Lopressor -) 25 mg PO BID [facility] Last Admin: 11/30/17 10:13 Dose: 25 mg Nitroglycerin (Nitrostat -) 0.4 mg SL PRN PRN PRN Reason: FOR CHEST PAIN Last Admin: 11/28/17 20:39 Dose: 0.4 mg Non-Formulary Medication (Colesevelam Hcl [Welchol (Nf)]) 625 mg PO BID [facility] Ranitidine HCl (Zantac -) 150 mg PO DAILY [facility] Last Admin: 11/30/17 10:13 Dose: 150 mg Ranolazine (Ranexa -) 500 mg PO BID [facility] Last Admin: 11/30/17 10:13 Dose: 500 mg Tamsulosin HCl (Flomax -) 0.4 mg PO DAILY [facility] Last Admin: 11/30/17 10:13 Dose: 0.4 mg Warfarin Sodium (Coumadin -) 10 mg PO DAILY@1800 [facility] 72 year old gentleman with PMhx of Nephrolithiasis, Mild CKD (baseline Cr 1.3-2) , DM on insulin, Atrial flutter, CAD, TIA, BPH with urinary retention who presented with complaints of chest pain, unilateral extremity weakness and facial asymmetry with Cr of 2.5. #Acute on Chronic Renal Insufficiency Renal function improved and stable US noted, No hydronephrosis but large PVR increase flomax to 0.8mg daily if renal function remains stable tomorrow can introduce ARB #UA suggestive of UTI urine culture w/o growth #TIA/CVA with multiple cortical infarcts seen on MRI on heparin gtt Neurology following #Chest Pain on Tele CK WNL, Troponins are flat Armando Sparks Do
--- NOTE | 2017-11-30 17:43 | CONSULT ---
Admitting History and Physical - Past Medical History Cardiovascular: Yes: AFIB, CAD, Deep Vein Thrombosis, HTN, Hyperlipdemia Pulmonary: Yes: Sleep Apnea Hepatobiliary: Yes: Cholelithiasis Renal/: Yes: Renal Inusuff, BPH, Renal Calculi Heme/Onc: Yes: Anemia Endocrine: Yes: Diabetes Mellitus - Past Surgical History Past Surgical History: Yes: Appendectomy, Joint Replacement (Hip surgery for fracture right femur, ORIF right ankle, hip replacement) - Smoking History Smoking history: Former smoker Have you smoked in the past 12 months: No Aproximately how many cigarettes per day: 0 If you are a former smoker, when did you quit?: 1995 - Alcohol/Substance Use Hx Alcohol Use: No - Social History ADL: Independent History - Admission Reason For Visit: ELEVATED TROPONIN I LEVEL, TRANSIENT CERBRAL ISCHE - Hearing Hearing: Normal Speech Evaluation - Communication Primary Language: INDONESIAN Communication: Yes: Within Normal Limits Oral Expression Ability: Yes: No Impairment - Speech Production Apraxia: No Able to Make Needs Known: Yes: WNL Intelligibility: Yes: WNL - Speech Characteristics Voice Loudness: Normal Voice Pitch: Yes: Normal Voice Phonatory-based Quality: Yes: Normal Speech Pattern: Normal Nasal Resonance: Normal Articulation: Yes: Precise Dysfluency: Yes: Tonic Rate of Speech: Intact - Language/Auditory Comprehension Follows: Yes: 1 Stage Simple Commands (WFL), 2 Stage Simple Commands (WFL), Complex Commands (WFL) Observation: Able to respond to yes/no queries: Yes, Yes/No Confusion: No, Comprehends Conversational Speech: Yes, Benefits from Slow Speech: No, Benefits from Repetiton: No, Benefits from Increased Volume of Speech: No - Language/Verbal Expression Able to Respond to Simple Queries: Yes: WNL Able to Communicate Wants and Needs: Yes: WNL Aware of Errors: Yes Attempts to Correct Errors: Yes Use of Gestures: No Written Expression: Not examined Oral Expression: Adequate Reading Comprehension: Not examined Calculations: Not examined Attention: Yes: Intact - Memory/Perception prison Memory: Yes: Mildly Impaired Short Term Memory: Yes: Mildly Impaired - Swallow Evaluation/Bedside Assessment Current Nutritional Intake: Regular (diabetic diet), Thin Liquids Oral Secretions: Yes: WFL Tracheostomy Present: No Patient on Ventilator: No Dentition: Yes: Adequate Facial Symmetry at Rest: Facial Droop Right (mild) Facial Symmetry on Retraction: Facial Droop Right (mild) Facial Movement: Controlled Sensation: Normal Facial Comment: WFL for speech and swallowing Jaw Position: Open at Rest Against Resistance Opening: Normal Against Resistance Closing: Normal Pucker Lips: Normal Smile: Droops Right Lips, Comment: WFL for speech and swallowing Lingual Movement: Normal Lingual Speed of Movement: Normal Lingual Movement Strgth Against Opposition: Normal Lingual Movement Characteristics: Normal Lingual Comment: WFL for speech and swallowing Soft Palate Description: Normal Color Hard Palate Description: Normal Color Gag Reflex: Strong Bite Reflex: Present Velopharyngeal Movement: Normal Laryngeal Elevation: WFL Laryngeal Movement: Able to Palpate Needs Assistance: Yes Bolus Size: WFL Sensation: Bite Reflex Labial Seal: WFL Chewing: WFL Oral Prep Time: WFL A-P Transit: WFL Pocketing: None Timing of Swallow: WFL Coughing/Throat Clear: No Change in Voice: No Other Findings/Remarks: 72 yo male seen at bedside for swallow eval to r/o dysphagia. Pt is verbal, A& Ox3 cooperative. Pt presents with mild right side facial droop (does not affect speech or swallowing at this time). PMHX includes HTN CAD TIA BPH CKD stage 3 and CVA. Adequate airway protection, with normal voicing parameters. Pt also reports severe sore throat on his right side. Pt given po trials of puree, soft and regular solids in minimal assistance revealed good acceptance, adequate chewing, bolus formation and transfer. Pharyngeal swallow appears timely. No cough or changes in respiration after the swallow. Pt did mention sore throat pain during the swallow. Thin liquids trials were unremarkable for dysphagia at this time. Recommendations - Speech Evaluation, Impression/Plan Impression: 72 yo male presents with mild oral phase dysphagia secondary to right facial droop and sore throat pain. No evidence of aspiration at this time. 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 - Dysphagia Impressions/Plan Swallowing Skills: WF Dysphagia Impressions: Minimal Impairment *Silent aspiration: cannot be R/O at bedside Dysphagia Treatment Plan: Small Bites, Safe Rate, Elevate HOB during feed, OOB for meals, Other (monitor pulmonary status and nutritional intake.) Dysphagia Evaluation Summary: Pt is able to regular diabetic solids and thin liquids without s/s of aspiration at this time. Continue current diet. Meds can be given whole with liquids. Results given verbally to admission discharge rn [facility] and to pcp via chart. Recommendations: ENT Consult (consider for sore throat right side pain.) - Recommendations Diet Consistency: Regular (diabetic) Medication Administration: Whole with water Liquids: Thin Liquids
[2017-11-30] MEDS: AMOX TR/POT CLAV 875MG/125MG TABLETS (FP) PO SCH (18:27)
[2017-11-30] MEDS: WARFARIN NA 10 MG TABLET (FP) PO SCH (18:27)
[2017-11-30] MEDS: ACETAMINOPHEN 325 MG TABLET (FP) PO PRN (23:10)
[2017-12-01] MEDS: ACETAMINOPHEN 325 MG TABLET (FP) PO PRN (07:09)
[2017-12-01] MEDS: GEMFIBROZIL 600 MG TABLET (FP) PO SCH ×2 (07:10→16:52)
[2017-12-01] MEDS: INSULIN DETEMIR 100 UNITS/ML MDV SQ SCH ×2 (07:10→22:46)
[2017-12-01] MEDS: INSULIN SLIDING SCALE (NOVOLOG) 1 VIAL SQ SCH ×4 (07:10→22:47)
[2017-12-01 07:53] LABS: HEMATOCRIT 34.6 % (35.4-49); HEMOGLOBIN 11.5 GM/dL (11.7-16.9); MCH 31.1 pg (25.7-33.7); MCHC 33.3 g/dl (32.0-35.9); MEAN CELL VOLUME 93.4 fl (80-96); MEAN PLT VOLUME 9.7 fl (7.5-11.1); PLATELET COUNT 292 K/MM3 (134-434); RDW 13.3 % (11.9-15.9); WHITE BLOOD COUNT 4.5 K/mm3 (4.0-10.0)
[2017-12-01 08:17] LABS: CHLORIDE 102 mmol/L (98-107); POTASSIUM 3.9 mmol/L (3.5-5.1); SODIUM 136 mmol/L (136-145)
[2017-12-01 08:25] LABS: ALK PHOS 116 U/L (45-117); ANION GAP 9 (8-16); BILIRUBIN,TOTAL 0.3 mg/dL (0.2-1.0); BLOOD UREA NITROGEN 27 mg/dL (7-18); CALCIUM 8.9 mg/dL (8.5-10.1); CO2 25 mmol/L (21-32); CREATININE 1.4 mg/dL (0.7-1.3); GLUCOSE,RANDOM 188 mg/dL (74-106); MAGNESIUM 1.6 mg/dL (1.8-2.4); PHOSPHOROUS 3.6 mg/dL (2.5-4.9); SGOT/AST 14 U/L (15-37); SGPT/ALT 14 U/L (12-78); TOT PROT 6.9 g/dl (6.4-8.2)
[2017-12-01 08:52] LABS: INR 1.22 (0.82-1.09); PROTHROMBIN TIME (PATIENT) 13.8 SEC (9.98-11.88)
[2017-12-01] MEDS: AMOX TR/POT CLAV 875MG/125MG TABLETS (FP) PO SCH ×2 (09:06→18:06)
[2017-12-01] MEDS: TAMSULOSIN HCL 0.4 MG CAP.ER.24H (FP) PO SCH (09:06)
[2017-12-01] MEDS: RANITIDINE HCL 150 MG TABLET (FP) PO SCH (09:06)
[2017-12-01] MEDS: METOPROLOL TARTRATE 25 MG TABLET (FP) PO SCH (09:06)
[2017-12-01] MEDS: MAGNESIUM OXIDE 400 MG TABLET (FP) PO SCH ×2 (09:06→22:47)
[2017-12-01] MEDS: RANOLAZINE E.R. 500 MG TABLET (FP) PO SCH ×2 (09:06→23:25)
[2017-12-01] MEDS: ISOSORBIDE MONONITRATE 30 MG TAB.SR.24H (FP) PO SCH (09:06)
[2017-12-01] MEDS ORDERED: PT OWN MED DRAWER 7, Y5N ONE (09:18)
--- NOTE | 2017-12-01 09:31 | PN ---
Progress Note (short form) - Note Progress Note: Chief Complaint: Events noted, notes reviewed, denies any chest pain, denies any dyspnea, reports right ear discomfort History of Present Illness: Seen and examined ion telemetry. Events noted, notes reviewed, denies any chest pain, denies any dyspnea, reports right ear discomfort A/C in progress with Coumadin/Heparin, Eliquis failure Echocardiography yesterday revealed normal LV size and function, bi-atrial dilatation, with mild MR Echocardiography dated 12/21/2015 normal LV size and function, with mild TR and AL MPI study dated 12/21/2015 revealed small-moderate size apical defect compatible with mild ischemia with preserved LV function Medications: Current Medications Acetaminophen (Tylenol -) 650 mg PO Q6H PRN PRN Reason: PAIN Last Admin: 12/01/17 07:09 Dose: 650 mg Amlodipine Besylate (Norvasc -) 2.5 mg PO DAILY [facility] Last Admin: 11/30/17 10:13 Dose: 2.5 mg Amoxicillin/Clavulanate Potassium (Augmentin - 875mg Tablet) 1 tab PO BID@0800, 1730 [facility] Last Admin: 12/01/17 09:06 Dose: 1 tab Aspirin (Asa -) 81 mg PO DAILY [facility] Last Admin: 11/30/17 10:13 Dose: 81 mg Gemfibrozil (Lopid -) 600 mg PO BID@0700,1630 [facility] Last Admin: 12/01/17 07:10 Dose: 600 mg Heparin Sodium (Porcine) (Heparin -) 1,000 unit IVPUSH PRN PRN PRN Reason: Heparin Last Admin: 11/30/17 10:17 Dose: 1,000 unit Heparin Sodium (Porcine) (Heparin -) 5,000 unit IVPUSH PRN PRN PRN Reason: Heparin Last Admin: 11/29/17 00:57 Dose: 5,000 unit Heparin Sodium (Porcine) 25, (000 unit/ Sodium Chloride) 500 mls @ 20 mls/hr IV TITR LONNIE; 1,000 UNIT/HR PRN Reason: Protocol Last Titration: 11/30/17 18:46 Dose: 1,450 unit/hr, 29 mls/hr Insulin Aspart (Novolog Vial Sliding Scale -) 0 vial SQ ACHS [facility] PRN Reason: Protocol Last Admin: 12/01/17 07:10 Dose: 2 units Insulin Detemir (Levemir Vial) 20 units SQ BID@0700,2200 [facility] Last Admin: 12/01/17 07:10 Dose: 20 units Isosorbide Mononitrate (Imdur -) 30 mg PO DAILY [facility] Last Admin: 12/01/17 09:06 Dose: 30 mg Magnesium Oxide (Mag-Ox -) 400 mg PO BID [facility] Last Admin: 12/01/17 09:06 Dose: 400 mg Metoprolol Tartrate (Lopressor -) 25 mg PO BID [facility] Last Admin: 12/01/17 09:06 Dose: 25 mg Nitroglycerin (Nitrostat -) 0.4 mg SL PRN PRN PRN Reason: FOR CHEST PAIN Last Admin: 11/28/17 20:39 Dose: 0.4 mg Non-Formulary Medication (Colesevelam Hcl [Welchol (Nf)]) 625 mg PO BID [facility] Ranitidine HCl (Zantac -) 150 mg PO DAILY [facility] Last Admin: 12/01/17 09:06 Dose: 150 mg Ranolazine (Ranexa -) 500 mg PO BID [facility] Last Admin: 12/01/17 09:06 Dose: 500 mg Tamsulosin HCl (Flomax -) 0.8 mg PO DAILY@0830 [facility] Last Admin: 12/01/17 09:06 Dose: 0.8 mg Warfarin Sodium (Coumadin -) 10 mg PO DAILY@1800 [facility] Last Admin: 11/30/17 18:27 Dose: 10 mg Review of Systems Cardiovascular: As noted above Respiratory: denies: denies: Cough or Sputum Production Gastrointestinal: denies: Nausea, Vomiting, Diarrhea, Constipation or Abdominal Discomfort Musculoskeletal: No Symptoms Reported Endocrine: No Symptoms Reported Vital Signs: Last Vital Signs Temp Pulse Resp BP Pulse Ox 98.1 F 59 L 18 156/86 97 12/01/17 09:09 12/01/17 09:09 12/01/17 09:09 12/01/17 09:09 11/30/17 21:00 Intake & Output 11/28/17 11/29/17 11/30/17 12/01/17 23:59 23:59 23:59 23:59 Intake Total 522 968 5798 468 Output Total 562 286 1705 300 Balance 050 193 5751 168 Weight 238 lb 8 oz 238 lb 8 oz Constitutional: No Distress, Calm Neck: Supple Negative JVD Respiratory: Clear to A&P Bilaterally Cardiovascular: S1 S2 Regular rate Rhythm Grade 1/6 SM Gastrointestinal: Soft Benign Normal Bowel Sounds Ext: No Edema Labs: CBC, BMP 12/01/17 06:30 12/01/17 06:30 Hepatic Panel Total Bilirubin 0.3 mg/dL (0.2-1.0) 12/01/17 06:30 AST 14 U/L (15-37) L 12/01/17 06:30 ALT 14 U/L (12-78) 12/01/17 06:30 Alkaline Phosphatase 116 U/L (45-117) 12/01/17 06:30 Albumin 3.0 g/dl (3.4-5.0) L 12/01/17 06:30 INR, PTT INR 1.22 (0.82-1.09) H 12/01/17 06:00 Assessment/Plan ASSESSMENT: 1. Acute right cerebal embolic CVA in context of atrial fibrillation despite Eliquis therapy 2. Paroxysmal atrial fibrillation [id number] score of 6 on NOAC's - ? noncompliance vs. breakthrough neurologic event (NOAC failure) 3. CAD post multi-vessel PCI stent angina pectoris, with evidence of demand ischemic injury, stable on medical therapy 4. Diastolic LV dysfunction with chronic class I NYHA classification LV failure , compensated/euvolemic 5. HTN 6. DM 7. Hyperlipidemia 8. History of KATJA 9. Chronic kidney disease 10. History of obstructive uropathy related to BPH with uro-sepsis, hematuria resolved 11. History of nephrolithiasis 12. Anemia 13. Ear ache, etiology to be determined PLAN: 1. Continue Lopressor and titrate dosage, hemodynamics permitting 2. Continue Amlodipine 3. Recommend resumption of Cozaar with close mentoring of renal function, hemodynamics permitting, unless it is absolutely contraindicated 4. Continue Imdur, hemodynamics permitting 5. Continue Ranexa 6. Continue Heparin/Coumadin as per INR and ASA with caution and close monitoring of CBC maintaining Hg equal or > 8.0 martin Tapia M.D.
[2017-12-01] MEDS: ASPIRIN 81 MG CHEWABLE TABLETS PO SCH (09:44)
[2017-12-01] MEDS: amLODIPine BESYLATE 2.5 MG TABLET (FP) PO SCH (09:44)
[2017-12-01] MEDS: METOPROLOL TARTRATE 50 MG TABLET (FP) PO SCH ×2 (10:41→22:47)
--- NOTE | 2017-12-01 12:49 | PN ---
Progress Note, INTERNAL AUDIT DIRECTOR - Note Progress Note: Selected Entries 11/30/17 11/30/17 11/30/17 02:00 06:00 10:00 Breakfast Lunch Supper Temperature 98.0 F 98.5 F 98.3 F 11/30/17 11/30/17 11/30/17 10:21 14:15 18:00 Breakfast 100% Lunch 100% Supper 100% Temperature 98 F 97.6 F 11/30/17 12/01/17 12/01/17 22:00 02:00 09:09 Breakfast Lunch Supper Temperature 97.5 F L 97.6 F 98.1 F 12/01/17 09:55 Breakfast 100% Lunch Supper Temperature Laboratory Tests 12/01/17 06:30 WBC 4.5 Tolerating diet. Pt c/o pain in right side of throat radiating up to the ears. Oral peripheral cursory evaluation (-)
--- NOTE | 2017-12-01 15:15 | PN ---
Physical Exam: SUBJECTIVE: Patient seen and examined. He c/o R ear pain. Denies palpitations, cp, sob. OBJECTIVE: Vital Signs Period Temp Pulse Resp BP Sys/Crawford Pulse Ox Last 24 Hr 97.5 F-98.1 F 54-63 16-18 111-156/52-86 97 PE Neuro: alert, awake, cn 2-12intact Pulm: CTAB CV: s1 s2 rrr Abd: s nt nd + bs Ext: warm, no le edema Laboratory Results - last 24 hr 12/01/17 12/01/17 12/01/17 06:00 06:07 06:30 WBC 4.5 RBC 3.70 L Hgb 11.5 L Hct 34.6 L MCV 93.4 MCH 31.1 MCHC 33.3 RDW 13.3 Plt Count 292 MPV 9.7 D PT with INR 13.80 H INR 1.22 H PTT (Actin FS) Sodium Potassium Chloride Carbon Dioxide Anion Gap BUN Creatinine Creat Clearance w eGFR POC Glucometer 188 Random Glucose Calcium Phosphorus Magnesium Total Bilirubin AST ALT Alkaline Phosphatase Total Protein Albumin 12/01/17 12/01/17 12/01/17 06:30 06:30 12:11 WBC RBC Hgb Hct MCV MCH MCHC RDW Plt Count MPV PT with INR INR PTT (Actin FS) 52.5 H Sodium 136 Potassium 3.9 Chloride 102 Carbon Dioxide 25 Anion Gap 9 BUN 27 H Creatinine 1.4 H Creat Clearance w eGFR 49.68 POC Glucometer 198 Random Glucose 188 H Calcium 8.9 Phosphorus 3.6 D Magnesium 1.6 L Total Bilirubin 0.3 AST 14 L ALT 14 Alkaline Phosphatase 116 Total Protein 6.9 Albumin 3.0 L Active Medications Generic Name Dose Route Start Last Admin Trade Name Freq PRN Reason Stop Dose Admin Acetaminophen 650 mg 11/28/17 20:25 12/01/17 07:09 Tylenol - PO 650 mg Q6H PRN Administration PAIN Amlodipine Besylate 2.5 mg 11/29/17 10:00 12/01/17 09:44 Norvasc - PO 2.5 mg DAILY [facility] Administration Amoxicillin/Clavulanate Potassium 1 tab 11/30/17 17:30 12/01/17 09:06 Augmentin - 875mg Tablet PO 1 tab BID@0800,1730 [facility] Administration Aspirin 81 mg 11/30/17 10:00 12/01/17 09:44 Asa - PO 81 mg DAILY [facility] Administration Gemfibrozil 600 mg 11/29/17 16:30 12/01/17 07:10 Lopid - PO 600 mg BID@0700,1630 [facility] Administration Heparin Sodium (Porcine) 1,000 unit 11/28/17 16:17 11/30/17 10:17 Heparin - IVPUSH 1,000 unit PRN PRN Administration Heparin Heparin Sodium (Porcine) 5,000 unit 11/28/17 16:17 11/29/17 00:57 Heparin - IVPUSH 5,000 unit PRN PRN Administration Heparin Heparin Sodium (Porcine) 25, 500 mls @ 20 mls/hr 11/28/17 16:30 12/01/17 09: 46 000 unit/ Sodium Chloride IV 1,450 unit/hr TITR LON[facility] 29 mls/hr Protocol Titration 1,000 UNIT/HR Insulin Aspart 0 vial 11/28/17 13:08 12/01/17 12:18 Novolog Vial Sliding Scale - SQ 2 units ACHS [facility] Administration Protocol Insulin Detemir 20 units 11/28/17 22:00 12/01/17 07:10 Levemir Vial SQ 20 units BID@0700,2200 [facility] Administration Isosorbide Mononitrate 30 mg 11/29/17 10:00 12/01/17 09:06 Imdur - PO 30 mg DAILY [facility] Administration Magnesium Oxide 400 mg 11/30/17 10:00 12/01/17 09:06 Mag-Ox - PO 400 mg BID [facility] Administration Metoprolol Tartrate 50 mg 12/01/17 09:46 12/01/17 10:41 Lopressor - PO 50 mg BID [facility] Administration Nitroglycerin 0.4 mg 11/28/17 13:06 11/28/17 20:39 Nitrostat - SL 0.4 mg PRN PRN Administration FOR CHEST PAIN Non-Formulary Medication 625 mg 11/28/17 22:00 Colesevelam Hcl [Welchol (Nf)] PO BID [facility] Ranitidine HCl 150 mg 11/29/17 10:00 12/01/17 09:06 Zantac - PO 150 mg DAILY [facility] Administration Ranolazine 500 mg 11/28/17 22:00 12/01/17 09:06 Ranexa - PO 500 mg BID [facility] Administration Tamsulosin HCl 0.8 mg 12/01/17 08:30 12/01/17 09:06 Flomax - PO 0.8 mg DAILY@0830 [facility] Administration Warfarin Sodium 10 mg 11/30/17 18:00 11/30/17 18:27 Coumadin - PO 10 mg DAILY@1800 [facility] Administration Imaging: - MRI brain: Scattered, acute cortical infarcts involving the right frontal, right parietal and right parieto-occipital lobe suggesting a central embolic phenomenon - Head CT and MRI with no intracranial hemorrhage - Kidney/bladder ultrasound: morphologically normal kidneys and urinary bladder with no evidence of hydronephrosis or acute pathology, large post void residual. Markedly enlarged prostate gland Assessment: 72 year old male with PMHx of HTN, hyperlipidemia, IDDM, a.fib (on Eliquis), CAD s/p stenting 5 years ago, TIAs, short term memory deficits, BPH, CKD stage 3, renal calculi, chronic hip pain, diverticulosis admitted with chest pain and an episode of right sided facial droop and weakness which has since resolved. Plan: 1. Acute CVA - Unclear if failed home Eliquis, concern for non-compliance vs. failure of Eliquis therapy, now stopped - Continue Heparin gtt bridge to Coumadin - Dose coumadin 10mg for INR goal 2-3 - Allergy to statins - Continue ASA - Continue Lopid - Continue Welchol 2. Atypical chest pain - Resolved - ECHO 11/30: normal LV size and function, bi-atrial dilatation, with mild MR - Continue ASA 3. Right otitis media - Continue Augmentin (11/30-) 4. S/p fall - Patient reports no head trauma however has short term memory deficits 5. LORY on CKD - Improving - Resume ARB 6. UTI, hx of esbl - Urine cx negative, ertapenem discontinued - No further treatment 7. CAD s/p cardiac stents - Resume cozaar 50mg daily - Continue Ranexa 8. Paroxysmal A.fib - Heparin gtt/coumadin 9. DM II - Continue Levemir - BGM, ISS ACHS 10.Hypomagnesemia - Give 1gm mg IV x1 - MgOx 400mg bid 11. Prophylaxis: - Heparin gtt - PT 12. BPH - Increased flomax 0.8mg daily CODE STATUS: FULL CODE Visit type - Emergency Visit Emergency Visit: Yes ED Registration Date: 11/28/17 Care time: The patient presented to the Emergency Department on the above date and was hospitalized for further evaluation of their emergent condition. - New Patient This patient is new to me today: Yes Date on this admission: 12/01/17 - Critical Care Critical Care patient: No
[2017-12-01] MEDS ORDERED: MAGNESIUM SULF 50% (8.12 MEQ/2 ML-1 GM VIAL) IVPB ONE (15:39)
[2017-12-01] MEDS ORDERED: MAGNESIUM 1GM/D5W - 1 GM/100 ML IVPB IVPB ONE (16:30)
[2017-12-01] MEDS: HEPARIN - 25,000 UNIT in SODIUM CHLORIDE 495 ML IV SCH (16:52)
[2017-12-01] MEDS: WARFARIN NA 10 MG TABLET (FP) PO SCH (18:06)
[2017-12-02] MEDS: INSULIN DETEMIR 100 UNITS/ML MDV SQ SCH ×2 (06:07→21:57)
[2017-12-02] MEDS: GEMFIBROZIL 600 MG TABLET (FP) PO SCH ×2 (06:07→17:19)
[2017-12-02] MEDS: INSULIN SLIDING SCALE (NOVOLOG) 1 VIAL SQ SCH ×4 (06:08→21:57)
[2017-12-02 07:26] LABS: HEMATOCRIT 35.7 % (35.4-49); MCH 31.3 pg (25.7-33.7); MCHC 33.6 g/dl (32.0-35.9); MEAN CELL VOLUME 93.2 fl (80-96); MEAN PLT VOLUME 9.3 fl (7.5-11.1); PLATELET COUNT 313 K/MM3 (134-434); RBC 3.83 M/mm3 (4.00-5.60); RDW 13.6 % (11.9-15.9); WHITE BLOOD COUNT 7.2 K/mm3 (4.0-10.0)
[2017-12-02 08:14] LABS: ANION GAP 10 (8-16); BLOOD UREA NITROGEN 22 mg/dL (7-18); CALCIUM 9.2 mg/dL (8.5-10.1); CHLORIDE 100 mmol/L (98-107); CO2 25 mmol/L (21-32); CREATININE 1.5 mg/dL (0.7-1.3); GLUCOSE,RANDOM 191 mg/dL (74-106); POTASSIUM 4.4 mmol/L (3.5-5.1); SODIUM 135 mmol/L (136-145)
[2017-12-02 08:18] LABS: INR 1.82 (0.82-1.09); PROTHROMBIN TIME (PATIENT) 20.6 SEC (9.98-11.88)
[2017-12-02] MEDS: HEPARIN NA (PORCINE) 5,000 UNITS/ML 1ML VIAL IVPUSH PRN (09:41)
[2017-12-02] MEDS: METOPROLOL TARTRATE 50 MG TABLET (FP) PO SCH ×2 (09:42→21:54)
[2017-12-02] MEDS: MAGNESIUM OXIDE 400 MG TABLET (FP) PO SCH ×2 (09:42→21:54)
[2017-12-02] MEDS: amLODIPine BESYLATE 2.5 MG TABLET (FP) PO SCH (09:42)
[2017-12-02] MEDS: AMOX TR/POT CLAV 875MG/125MG TABLETS (FP) PO SCH ×2 (09:42→17:18)
[2017-12-02] MEDS: RANITIDINE HCL 150 MG TABLET (FP) PO SCH (09:42)
[2017-12-02] MEDS: RANOLAZINE E.R. 500 MG TABLET (FP) PO SCH ×2 (09:42→21:54)
[2017-12-02] MEDS: ASPIRIN 81 MG CHEWABLE TABLETS PO SCH (09:42)
[2017-12-02] MEDS: ISOSORBIDE MONONITRATE 30 MG TAB.SR.24H (FP) PO SCH (09:42)
[2017-12-02] MEDS: TAMSULOSIN HCL 0.4 MG CAP.ER.24H (FP) PO SCH (09:42)
[2017-12-02] MEDS: LOSARTAN POTASSIUM 50 MG TABLET (FP) PO SCH (09:43)
--- NOTE | 2017-12-02 09:45 | PN ---
Physical Exam: SUBJECTIVE: Patient seen and examined. He complaints of persistent R ear pain and L pectoralis pain which is reproducible on exam and worse with cough. OBJECTIVE: Vital Signs Period Temp Pulse Resp BP Sys/Crawford Pulse Ox Last 24 Hr 97.6 F-98.2 F 54-67 16-18 111-164/60-81 97 PE Neuro: alert, awake, cn 2-12intact Pulm: CTAB + cough CV: s1 s2 rrr + reproducible chest pain Abd: s nt nd + bs Ext: warm, no le edema Laboratory Results - last 24 hr 12/02/17 12/02/17 12/02/17 05:26 06:02 06:02 WBC 7.2 D RBC 3.83 L Hgb 12.0 Hct 35.7 MCV 93.2 MCH 31.3 MCHC 33.6 RDW 13.6 Plt Count 313 MPV 9.3 PT with INR INR PTT (Actin FS) 44.7 H Sodium Potassium Chloride Carbon Dioxide Anion Gap BUN Creatinine POC Glucometer 219 Random Glucose Calcium 12/02/17 12/02/17 06:02 06:02 WBC RBC Hgb Hct MCV MCH MCHC RDW Plt Count MPV PT with INR 20.60 H INR 1.82 H D PTT (Actin FS) Sodium 135 L Potassium 4.4 Chloride 100 Carbon Dioxide 25 Anion Gap 10 BUN 22 H Creatinine 1.5 H POC Glucometer Random Glucose 191 H Calcium 9.2 Active Medications Generic Name Dose Route Start Last Admin Trade Name Freq PRN Reason Stop Dose Admin Acetaminophen 650 mg 11/28/17 20:25 12/01/17 07:09 Tylenol - PO 650 mg Q6H PRN Administration PAIN Amlodipine Besylate 2.5 mg 11/29/17 10:00 12/02/17 09:42 Norvasc - PO 2.5 mg DAILY [facility] Administration Amoxicillin/Clavulanate Potassium 1 tab 11/30/17 17:30 12/02/17 09:42 Augmentin - 875mg Tablet PO 1 tab BID@0800,1730 [facility] Administration Aspirin 81 mg 11/30/17 10:00 12/02/17 09:42 Asa - PO 81 mg DAILY [facility] Administration Benzocaine/Menthol 1 each 12/02/17 08:46 Cepacol Lozenge - MM PRN PRN SORE THROAT Gemfibrozil 600 mg 11/29/17 16:30 12/02/17 06:07 Lopid - PO 600 mg BID@0700,1630 [facility] Administration Heparin Sodium (Porcine) 1,000 unit 11/28/17 16:17 12/02/17 09:41 Heparin - IVPUSH 1,000 unit PRN PRN Administration Heparin Heparin Sodium (Porcine) 5,000 unit 11/28/17 16:17 11/29/17 00:57 Heparin - IVPUSH 5,000 unit PRN PRN Administration Heparin Heparin Sodium (Porcine) 25, 500 mls @ 20 mls/hr 11/28/17 16:30 12/02/17 09: 41 000 unit/ Sodium Chloride IV 1,550 unit/hr TITR [facility]ONNIE 31 mls/hr Protocol Titration 1,000 UNIT/HR Insulin Aspart 0 vial 11/28/17 13:08 12/02/17 06:08 Novolog Vial Sliding Scale - SQ 2 units ACHS [facility] Administration Protocol Insulin Detemir 20 units 11/28/17 22:00 12/02/17 06:07 Levemir Vial SQ 20 units BID@0700,2200 [facility] Administration Isosorbide Mononitrate 30 mg 11/29/17 10:00 12/02/17 09:42 Imdur - PO 30 mg DAILY [facility] Administration Losartan Potassium 50 mg 12/02/17 10:00 12/02/17 09:43 Cozaar - PO 50 mg DAILY [facility] Administration Magnesium Oxide 400 mg 11/30/17 10:00 12/02/17 09:42 Mag-Ox - PO 400 mg BID [facility] Administration Methyl Salicylate 1 applic 12/02/17 10:00 Ronnie-Myers - TP BID [facility] Metoprolol Tartrate 50 mg 12/01/17 09:46 12/02/17 09:42 Lopressor - PO 50 mg BID [facility] Administration Nitroglycerin 0.4 mg 11/28/17 13:06 11/28/17 20:39 Nitrostat - SL 0.4 mg PRN PRN Administration FOR CHEST PAIN Non-Formulary Medication 625 mg 11/28/17 22:00 Colesevelam Hcl [Welchol (Nf)] PO BID [facility] Ranitidine HCl 150 mg 11/29/17 10:00 12/02/17 09:42 Zantac - PO 150 mg DAILY [facility] Administration Ranolazine 500 mg 11/28/17 22:00 12/02/17 09:42 Ranexa - PO 500 mg BID [facility] Administration Tamsulosin HCl 0.8 mg 12/01/17 08:30 12/02/17 09:42 Flomax - PO 0.8 mg DAILY@0830 [facility] Administration Warfarin Sodium 10 mg 11/30/17 18:00 12/01/17 18:06 Coumadin - PO 10 mg DAILY@1800 [facility] Administration Imaging: - MRI brain: Scattered, acute cortical infarcts involving the right frontal, right parietal and right parieto-occipital lobe suggesting a central embolic phenomenon - ECHO 11/30: normal LV size and function, bi-atrial dilatation, with mild MR Assessment: 72 year old male with PMHx of HTN, hyperlipidemia, IDDM, a.fib (on Eliquis), CAD s/p stenting 5 years ago, TIAs, short term memory deficits, BPH, CKD stage 3, renal calculi, chronic hip pain, diverticulosis admitted with chest pain and an episode of right sided facial droop and weakness which has since resolved. Plan: 1. Acute CVA - Unclear if failed home Eliquis, concern for non-compliance vs. failure of Eliquis therapy, now stopped - Continue Heparin gtt bridge to Coumadin - Dose coumadin 10mg for INR goal 2-3 - Allergy to statins - Continue ASA - Continue Lopid - Continue Welchol 2. Musculoskeletal CP/hx of angina pectoris - Reproducible on exam - Continue Tylenol - Trial bengay 3. CAD s/p cardiac stents, evidence of demand ischemia - ASA daily - Cozaar 50mg daily - Continue Ranexa 4. Diastolic CHF - Not in exacerbation 5. Right otitis media - ENT consulted for persistent Ear pain - Continue Augmentin (11/30-) 6. S/p fall - Patient reports no head trauma however has short term memory deficits 7. LORY on CKD - Appears to have stabilized - Losartan resumed today 8. UTI, hx of esbl - Urine cx negative, ertapenem discontinued - No further treatment 9. Paroxysmal A.fib - Heparin gtt/coumadin 10. DM II - Continue Levemir - BGM, ISS ACHS 11. Hypomagnesemia - MgOx 400mg bid 12. Prophylaxis - Heparin gtt - PT 13. BPH - Increased flomax 0.8mg daily CODE STATUS: FULL CODE Visit type - Emergency Visit Emergency Visit: Yes ED Registration Date: 11/28/17 Care time: The patient presented to the Emergency Department on the above date and was hospitalized for further evaluation of their emergent condition. - New Patient This patient is new to me today: No - Critical Care Critical Care patient: No
[2017-12-02] MEDS: METHYL SALICYLATE/MENTHOL OINT 30 GM TUBE TP SCH ×3 (10:00→21:57)
[2017-12-02] MEDS: BENZOCAINE/MENTH/CETYLPYRD CL 1 EACH LOZENGE MM PRN (10:00)
--- NOTE | 2017-12-02 12:50 | PN ---
Progress Note, Physician History of Present Illness: No further chest discomfort, right facial droop improving, earache improving. - Current Medication List Current Medications: Active Medications Acetaminophen (Tylenol -) 650 mg PO Q6H PRN PRN Reason: PAIN Last Admin: 12/01/17 07:09 Dose: 650 mg Amlodipine Besylate (Norvasc -) 2.5 mg PO DAILY [facility] Last Admin: 12/02/17 09:42 Dose: 2.5 mg Amoxicillin/Clavulanate Potassium (Augmentin - 875mg Tablet) 1 tab PO BID@0800, 1730 [facility] Last Admin: 12/02/17 09:42 Dose: 1 tab Aspirin (Asa -) 81 mg PO DAILY [facility] Last Admin: 12/02/17 09:42 Dose: 81 mg Benzocaine/Menthol (Cepacol Lozenge -) 1 each MM PRN PRN PRN Reason: SORE THROAT Last Admin: 12/02/17 10:00 Dose: 1 each Gemfibrozil (Lopid -) 600 mg PO BID@0700,1630 [facility] Last Admin: 12/02/17 06:07 Dose: 600 mg Guaifenesin (Diabetic Tussin Dm -) 10 ml PO Q6H PRN PRN Reason: COUGH Heparin Sodium (Porcine) (Heparin -) 1,000 unit IVPUSH PRN PRN PRN Reason: Heparin Last Admin: 12/02/17 09:41 Dose: 1,000 unit Heparin Sodium (Porcine) (Heparin -) 5,000 unit IVPUSH PRN PRN PRN Reason: Heparin Last Admin: 11/29/17 00:57 Dose: 5,000 unit Heparin Sodium (Porcine) 25, (000 unit/ Sodium Chloride) 500 mls @ 20 mls/hr IV TITR LONNIE; 1,000 UNIT/HR PRN Reason: Protocol Last Titration: 12/02/17 09:41 Dose: 1,550 unit/hr, 31 mls/hr Insulin Aspart (Novolog Vial Sliding Scale -) 0 vial SQ ACHS LONNIE PRN Reason: Protocol Last Admin: 12/02/17 11:47 Dose: 4 units Insulin Detemir (Levemir Vial) 20 units SQ BID@0700,2200 [facility] Last Admin: 12/02/17 06:07 Dose: 20 units Isosorbide Mononitrate (Imdur -) 30 mg PO DAILY [facility] Last Admin: 12/02/17 09:42 Dose: 30 mg Losartan Potassium (Cozaar -) 50 mg PO DAILY [facility] Last Admin: 12/02/17 09:43 Dose: 50 mg Magnesium Oxide (Mag-Ox -) 400 mg PO BID [facility] Last Admin: 12/02/17 09:42 Dose: 400 mg Methyl Salicylate (Ronnie-Myers -) 1 applic TP BID [facility] Metoprolol Tartrate (Lopressor -) 50 mg PO BID [facility] Last Admin: 12/02/17 09:42 Dose: 50 mg Nitroglycerin (Nitrostat -) 0.4 mg SL PRN PRN PRN Reason: FOR CHEST PAIN Last Admin: 11/28/17 20:39 Dose: 0.4 mg Non-Formulary Medication (Colesevelam Hcl [Welchol (Nf)]) 625 mg PO BID [facility] Ranitidine HCl (Zantac -) 150 mg PO DAILY [facility] Last Admin: 12/02/17 09:42 Dose: 150 mg Ranolazine (Ranexa -) 500 mg PO BID [facility] Last Admin: 12/02/17 09:42 Dose: 500 mg Tamsulosin HCl (Flomax -) 0.8 mg PO DAILY@0830 [facility] Last Admin: 12/02/17 09:42 Dose: 0.8 mg Warfarin Sodium (Coumadin -) 10 mg PO DAILY@1800 [facility] Last Admin: 12/01/17 18:06 Dose: 10 mg - Objective Vital Signs: Vital Signs Temperature 98.2 F 12/02/17 02:00 Pulse Rate 67 12/02/17 02:00 Respiratory Rate 18 12/02/17 02:00 Blood Pressure 163/80 12/02/17 02:00 O2 Sat by Pulse Oximetry (%) 97 12/01/17 21:00 Constitutional: Yes: No Distress, Calm Neck: Yes: Supple Cardiovascular: Yes: Regular Rate and Rhythm Respiratory: Yes: Regular, Diminished Gastrointestinal: Yes: Normal Bowel Sounds, Soft, Abdomen, Obese Edema: No Labs: CBC, BMP 12/02/17 06:02 12/02/17 06:02 INR, PTT INR 1.82 (0.82-1.09) H D 12/02/17 06:02 - ....Imaging EKG: Report Reviewed (Tele: NSR occ PAC) Problem List - Problems (1) LORY (acute kidney injury) Code(s): N17.9 - ACUTE KIDNEY FAILURE, UNSPECIFIED (2) Acute ischemic stroke Code(s): I63.9 - CEREBRAL INFARCTION, UNSPECIFIED (3) Afib Code(s): I48.91 - UNSPECIFIED ATRIAL FIBRILLATION Qualifiers: Atrial fibrillation type: paroxysmal Qualified Code(s): I48.0 - Paroxysmal atrial fibrillation (4) CAD (coronary artery disease) Code(s): I25.10 - ATHSCL HEART DISEASE OF [place] CORONARY ARTERY W/O ANG PCTRS Qualifiers: Coronary Disease-Associated Artery/Lesion type: [place] artery [place] vs. transplanted heart: [place] heart Associated angina: without angina Qualified Code(s): I25.10 - Atherosclerotic heart disease of [place] coronary artery without angina pectoris (5) Demand ischemia Code(s): I24.8 - OTHER FORMS OF ACUTE ISCHEMIC HEART DISEASE (6) 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 Code(s): E11.9 - TYPE 2 DIABETES MELLITUS WITHOUT COMPLICATIONS Qualifiers: 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 type: type 2 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 complication status: without complication 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 superintendent container terminal insulin use: without superintendent container terminal use Qualified Code(s): E11.9 - Type 2 diabetes mellitus without complications (7) HTN (hypertension) Code(s): I10 - ESSENTIAL (PRIMARY) HYPERTENSION Qualifiers: Hypertension type: essential hypertension Qualified Code(s): I10 - Essential (primary) hypertension (8) History of cardiac radiofrequency ablation (RFA) Code(s): Z98.89 - OTHER SPECIFIED POSTPROCEDURAL STATES * DO NOT USE * (9) Hyperlipidemia Code(s): E78.5 - HYPERLIPIDEMIA, UNSPECIFIED Qualifiers: Hyperlipidemia type: mixed hyperlipidemia Qualified Code(s): E78.2 - Mixed hyperlipidemia (10) Obstructive sleep apnea of adult Code(s): G47.33 - OBSTRUCTIVE SLEEP APNEA (ADULT) (PEDIATRIC) (11) Paroxysmal a-fib Code(s): I48.0 - PAROXYSMAL ATRIAL FIBRILLATION (12) S/P coronary artery stent placement Code(s): Z95.5 - PRESENCE OF CORONARY ANGIOPLASTY IMPLANT AND GRAFT (13) UTI (urinary tract infection) Code(s): N39.0 - URINARY TRACT INFECTION, SITE NOT SPECIFIED Qualifiers: Urinary tract infection type: site unspecified Hematuria presence: without hematuria Qualified Code(s): N39.0 - Urinary tract infection, site not specified Assessment/Plan Echocardiography yesterday revealed normal LV size and function, bi-atrial dilatation, with mild MR Echocardiography dated 12/21/2015 normal LV size and function, with mild TR and [place] MPI study dated 12/21/2015 revealed small-moderate size apical defect compatible with mild ischemia with preserved LV function 1. Acute right cerebal embolic CVA in context of atrial fibrillation despite Eliquis therapy 2. Paroxysmal atrial fibrillation [id number] score of 6 on NOAC's - ? noncompliance vs. breakthrough neurologic event (NOAC failure) 3. CAD post multi-vessel PCI stent angina pectoris, with evidence of demand ischemic injury, stable on medical therapy 4. Diastolic LV dysfunction with chronic class I NYHA classification LV failure , compensated/euvolemic 5. HTN 6. DM 7. Hyperlipidemia 8. History of KATJA 9. Chronic kidney disease 10. History of obstructive uropathy related to BPH with uro-sepsis, hematuria resolved 11. History of nephrolithiasis 12. Anemia PLAN: 1. Continue Lopressor 50 bid and titrate dosage, hemodynamics permitting 2. Continue Amlodipine 2.5 qd 3. Continue Cozaar 50 qd with close mentoring of renal function, hemodynamics permitting 4. Continue Imdur 30 qd, hemodynamics permitting 5. Continue Ranexa 500 bid 6. Continue Heparin->Coumadin as per INR and ASA 81 qd with caution and close monitoring of CBC maintaining Hg equal or > 8.0 7. Continue Lopid 600 bid and Welchol 625 bid
[2017-12-02] MEDS: guaiFENesin/D-M SUGAR-FREE/ACLHOL-FREE 118 ML BOTTLE PO PRN (13:00)
--- NOTE | 2017-12-02 13:36 | PN ---
Progress Note (short form) - Note Progress Note: Renal follow up for LORY on CKD Pt seen and examined at the bedside awake no acute complaints making urine no sob, chest pain, abd pain Vital Signs Temperature 99.2 F 12/02/17 10:00 Pulse Rate 75 12/02/17 10:01 Respiratory Rate 18 12/02/17 10:01 Blood Pressure 123/62 12/02/17 10:01 O2 Sat by Pulse Oximetry (%) 97 12/02/17 09:00 Intake & Output 11/29/17 11/30/17 12/01/17 12/02/17 23:59 23:59 23:59 23:59 Intake Total 808 2364 2080 878 Output Total 650 1200 700 300 Balance 158 1164 1380 578 Weight 108.182 kg NAD RRR CTA soft NT/ND No LE edema CBC, BMP 12/02/17 06:02 12/02/17 06:02 Laboratory Tests 11/30/17 12/02/17 06:43 06:02 Calcium 9.0 9.2 Magnesium 1.4 L Albumin 3.0 L Current Medications Acetaminophen (Tylenol -) 650 mg PO Q6H PRN PRN Reason: PAIN Last Admin: 12/01/17 07:09 Dose: 650 mg Amlodipine Besylate (Norvasc -) 2.5 mg PO DAILY [facility] Last Admin: 12/02/17 09:42 Dose: 2.5 mg Amoxicillin/Clavulanate Potassium (Augmentin - 875mg Tablet) 1 tab PO BID@0800, 1730 [facility] Last Admin: 12/02/17 09:42 Dose: 1 tab Aspirin (Asa -) 81 mg PO DAILY [facility] Last Admin: 12/02/17 09:42 Dose: 81 mg Benzocaine/Menthol (Cepacol Lozenge -) 1 each MM PRN PRN PRN Reason: SORE THROAT Last Admin: 12/02/17 10:00 Dose: 1 each Gemfibrozil (Lopid -) 600 mg PO BID@0700,1630 [facility] Last Admin: 12/02/17 06:07 Dose: 600 mg Guaifenesin (Diabetic Tussin Dm -) 10 ml PO Q6H PRN PRN Reason: COUGH Heparin Sodium (Porcine) (Heparin -) 1,000 unit IVPUSH PRN PRN PRN Reason: Heparin Last Admin: 12/02/17 09:41 Dose: 1,000 unit Heparin Sodium (Porcine) (Heparin -) 5,000 unit IVPUSH PRN PRN PRN Reason: Heparin Last Admin: 11/29/17 00:57 Dose: 5,000 unit Heparin Sodium (Porcine) 25, (000 unit/ Sodium Chloride) 500 mls @ 20 mls/hr IV TITR LONNIE; 1,000 UNIT/HR PRN Reason: Protocol Last Titration: 12/02/17 09:41 Dose: 1,550 unit/hr, 31 mls/hr Insulin Aspart (Novolog Vial Sliding Scale -) 0 vial SQ ACHS LONNIE PRN Reason: Protocol Last Admin: 12/02/17 11:47 Dose: 4 units Insulin Detemir (Levemir Vial) 20 units SQ BID@0700,2200 [facility] Last Admin: 12/02/17 06:07 Dose: 20 units Isosorbide Mononitrate (Imdur -) 30 mg PO DAILY [facility] Last Admin: 12/02/17 09:42 Dose: 30 mg Losartan Potassium (Cozaar -) 50 mg PO DAILY [facility] Last Admin: 12/02/17 09:43 Dose: 50 mg Magnesium Oxide (Mag-Ox -) 400 mg PO BID [facility] Last Admin: 12/02/17 09:42 Dose: 400 mg Methyl Salicylate (Ronnie-Myers -) 1 applic TP BID [facility] Last Admin: 12/02/17 10:00 Dose: Not Given Metoprolol Tartrate (Lopressor -) 50 mg PO BID [facility] Last Admin: 12/02/17 09:42 Dose: 50 mg Nitroglycerin (Nitrostat -) 0.4 mg SL PRN PRN PRN Reason: FOR CHEST PAIN Last Admin: 11/28/17 20:39 Dose: 0.4 mg Non-Formulary Medication (Colesevelam Hcl [Welchol (Nf)]) 625 mg PO BID [facility] Ranitidine HCl (Zantac -) 150 mg PO DAILY [facility] Last Admin: 12/02/17 09:42 Dose: 150 mg Ranolazine (Ranexa -) 500 mg PO BID [facility] Last Admin: 12/02/17 09:42 Dose: 500 mg Tamsulosin HCl (Flomax -) 0.8 mg PO DAILY@0830 [facility] Last Admin: 12/02/17 09:42 Dose: 0.8 mg Warfarin Sodium (Coumadin -) 10 mg PO DAILY@1800 [facility] Last Admin: 12/01/17 18:06 Dose: 10 mg 72 year old gentleman with PMhx of Nephrolithiasis, Mild CKD (baseline Cr 1.3-2) , DM on insulin, Atrial flutter, CAD, TIA, BPH with urinary retention who presented with complaints of chest pain, unilateral extremity weakness and facial asymmetry with Cr of 2.5. #Acute on Chronic Renal Insufficiency Renal function stable continue higher dose flomax Trend BUN/Cr and electrolytes #TIA/CVA with multiple cortical infarcts seen on MRI on heparin gtt Neurology following on Warfarin #Chest Pain on Tele CK WNL, Troponins are flat cardiology following Armando Sparks Do
[2017-12-02] MEDS: WARFARIN NA 10 MG TABLET (FP) PO SCH (17:15)
[2017-12-02] MEDS: HEPARIN - 25,000 UNIT in SODIUM CHLORIDE 495 ML IV SCH (17:19)
[2017-12-02] MEDS: NITROGLYCERIN SUBLINGUAL 1/150 0.4 MG TAB SL PRN (17:28)
[2017-12-02] MEDS: ACETAMINOPHEN 325 MG TABLET (FP) PO PRN (18:51)
[2017-12-02] MEDS ORDERED: OSELTAMIVIR PHOSPHATE 30 MG CAPSULE PO ONE (20:01)
--- NOTE | 2017-12-02 20:11 | CON.ENT ---
Consult Consult Specialty:: ENT Referred by:: Romi Koo NP Reason for Consultation:: right ear pain - History of Present Illness Chief Complaint: right ear pain History of Present Illness: 72 yo M: This is a 72 year old male with PMHx of HTN, hyperlipidemia, IDDM, a.flutter ( on Eliquis), CAD s/p stenting 5 years ago, TIAs, short term memory deficits, BPH , CKD stage 3, renal calculi, chronic hip pain, diverticulosis, who presented to the ED with chest pain and an episode of right sided facial droop and weakness which has since resolved. hx CVA hx A fib reports recent sinus problems, past hx nasal surgery many years ago +right ear pain x 1 week, denies left ear pain, no drainange - History Source History Provided By: Patient, Medical Record Limitations to Obtaining History: No Limitations - Past Medical History Cardio/Vascular: Yes: AFIB, CAD, Deep Vein Thrombosis, HTN, Hyperlipdemia Pulmonary: Yes: Sleep Apnea Hepatobiliary: Yes: Cholelithiasis Renal/: Yes: Renal Inusuff, BPH, Renal Calculi Endocrine: Yes: Diabetes Mellitus - Past Surgical History Past Surgical History: Yes: Appendectomy, Joint Replacement (Hip surgery for fracture right femur, ORIF right ankle, hip replacement) - Alcohol/Substance Use Hx Alcohol Use: No - Smoking History Smoking history: Former smoker Have you smoked in the past 12 months: No Aproximately how many cigarettes per day: 0 If you are a former smoker, when did you quit?: 1995 - Social History Usual Living Arrangement: With Spouse ADL: Independent Home Medications - Allergies Allergies/Adverse Reactions: Allergies Allergy/AdvReac Type Severity Reaction Status Date / Time [id number]-[id number] Reductase Allergy Unknown Verified 11/28/17 05:54 Inhibitor lactose AdvReac Verified 11/28/17 05:54 - Home Medications Home Medications: Ambulatory Orders Tamsulosin HCl [Flomax -] 0.4 mg PO DAILY #10 capsule 06/01/16 Gemfibrozil [Lopid] 600 mg PO BID 10/14/16 Losartan Potassium [Cozaar -] 50 mg PO DAILY 10/14/16 Nitroglycerin [Nitrostat] 0.4 mg SL PRN PRN 10/14/16 Ranolazine [Ranexa -] 500 mg PO BID tab 11/01/16 Apixaban [Eliquis -] 5 mg PO BID #30 tablet 11/20/16 Colesevelam HCl [Welchol (Nf)] 625 mg PO BID #30 tablet 11/20/16 Ranitidine [Zantac -] 150 mg PO DAILY #20 tablet 11/20/16 Insulin Sliding Scale [Novolog Vial Sliding Scale -] 0 units SQ QID PRN Amlodipine Besylate [Norvasc -] 2.5 mg PO DAILY #30 tablet 02/10/17 Isosorbide Mononitrate [Imdur -] 30 mg PO DAILY #30 tab 02/10/17 Metoprolol Tartrate [Lopressor -] 25 mg PO BID #60 tablet 02/10/17 Insulin (Levemir) [Levemir Vial] 20 units SQ BID 11/12/17 Nitrofurantoin Monohyd/M-Cryst [Macrobid -] 100 mg PO BID #13 capsule 11/17/17 Family Disease History - Family Disease History Family Disease History: Diabetes: Grandparent Physical Exam-ENT Vital Signs: Vital Signs Temperature 99.1 F 12/02/17 18:15 Pulse Rate 58 L 12/02/17 18:15 Respiratory Rate 18 12/02/17 18:15 Blood Pressure 143/63 12/02/17 18:15 O2 Sat by Pulse Oximetry (%) 97 12/02/17 09:00 Constitutional: Yes: Well Nourished, No Distress Head: Yes: WNL Face: Yes: WNL Eyes: Yes: WNL Nose: Yes: Septum Deviated (significant caudal deviation to left, j+anterior perforation ~1.5 cm with crusting, no bleeding), Septum Perforated Nasal Passage: Yes: Other (sl dry, has nasal cannulae) Oral/Pharynx: Yes: Other (upper and lower dentures, no lesions tongue sl dry, oropharynx clear, no mucosal lesions, no pus or obstruction, voice clear and strong, no stridor or respiratory distress) Outer Ear: Yes: WNL Ear Canal: Yes: Cerumen Tympanic Membrane: Yes: WNL (right WNL, left not visualized because of cerumen impaction) Neck: Yes: WNL Imaging - Results Chest X-ray: Report Reviewed, Image Reviewed Cat Scan: Report Reviewed, Image Reviewed (sinuses sl thickening in ethmoids, no air fluid level, septal deviation and perforation, inferior turbinate hypertrophy, mastoids well aerated without fluid) MRI: Report Reviewed, Image Reviewed Problem List - Problems (1) Ear pain, right Assessment/Plan: right ear pain for one week exam shows normal canal and TM without signs of infection CT scan of head 11-28-17 shows normal mastoids, middle ear without fluid or mucosal disease suspect referred from URI pharyngitis newly suspected influenza, Tamiflu ordered Recommend: continue analgesics prn, continue antibiotics as per ID after discharge to office for audiogram Code(s): H92.01 - OTALGIA, RIGHT EAR (2) Chronic rhinitis Assessment/Plan: c/o sinus symptoms exam shows deviated septum with anterior perforation (likely sequela of past nasal surgery) crusting present, likely exacerbated by oxygen use. no bleeding CT scan shows mild ethmoid sinus mucosal thickening, NO air fluid levels in any of the sinuses. Recommend nasal saline spray humidify oxygen supply Thank you for consultation, Zohaib Metzger MD FACS Code(s): J31.0 - CHRONIC RHINITIS
[2017-12-02 20:39] LABS: URINE APPEARANCE CLOUDY; URINE BILIRUBIN NEGATIVE (NEGATIVE); URINE BLOOD 1+ (NEGATIVE); URINE COLOR YELLOW; URINE GLUCOSE (UA) 3+ (NEGATIVE); URINE KETONE NEGATIVE (NEGATIVE); URINE NITRITE NEGATIVE (NEGATIVE); URINE UROBILINOGEN NEGATIVE mg/dL (0.2-1.0)
[2017-12-02 20:44] LABS: URINE LEUK ESTERASE 3+ (NEGATIVE); URINE PROTEIN 1+ (NEGATIVE)
[2017-12-02 20:56] LABS: YEAST MANY
[2017-12-03] MEDS: ACETAMINOPHEN 325 MG TABLET (FP) PO PRN (02:57)
[2017-12-03] MEDS: BENZOCAINE/MENTH/CETYLPYRD CL 1 EACH LOZENGE MM PRN (02:58)
[2017-12-03] MEDS ORDERED: MORPHINE SULFATE 10 MG/1 ML *VIAL IVPUSH ONE ×2 (03:25→06:15)
[2017-12-03] MEDS: INSULIN SLIDING SCALE (NOVOLOG) 1 VIAL SQ SCH ×4 (06:07→22:20)
[2017-12-03] MEDS: GEMFIBROZIL 600 MG TABLET (FP) PO SCH ×2 (07:17→16:58)
[2017-12-03] MEDS: INSULIN DETEMIR 100 UNITS/ML MDV SQ SCH ×2 (07:17→22:19)
[2017-12-03] MEDS ORDERED: INSULIN (NOVOLOG) ASPART 100 UNITS/ML 10ML VIAL ONE (07:32)
[2017-12-03 07:58] LABS: HEMOGLOBIN 11.9 GM/dL (11.7-16.9); MCH 30.8 pg (25.7-33.7); MEAN CELL VOLUME 93.5 fl (80-96); MEAN PLT VOLUME 8.8 fl (7.5-11.1); PLATELET COUNT 297 K/MM3 (134-434); RBC 3.85 M/mm3 (4.00-5.60); RDW 13.5 % (11.9-15.9); WHITE BLOOD COUNT 3.9 K/mm3 (4.0-10.0)
[2017-12-03 08:40] LABS: INR 2.3 (0.82-1.09)
[2017-12-03 08:44] LABS: ANION GAP 8 (8-16); BLOOD UREA NITROGEN 22 mg/dL (7-18); CALCIUM 8.9 mg/dL (8.5-10.1); CHLORIDE 103 mmol/L (98-107); CO2 26 mmol/L (21-32); GLUCOSE,RANDOM 120 mg/dL (74-106); POTASSIUM 4.2 mmol/L (3.5-5.1); SODIUM 137 mmol/L (136-145)
[2017-12-03 08:45] LABS: CREATININE 1.5 mg/dL (0.7-1.3)
--- NOTE | 2017-12-03 09:31 | PN ---
Progress Note, Physician Chief Complaint: Events noted Complains of left sided chest pain "sharp" History of Present Illness: Patient was seen and examined. Awake and alert. Chart was reviewed As outlined above. Denies shortness of breath or palpitations. Slight facial droop - Current Medication List Current Medications: Active Medications Acetaminophen (Tylenol -) 650 mg PO Q6H PRN PRN Reason: PAIN Last Admin: 12/03/17 02:57 Dose: 650 mg Amlodipine Besylate (Norvasc -) 2.5 mg PO DAILY [facility] Last Admin: 12/02/17 09:42 Dose: 2.5 mg Amoxicillin/Clavulanate Potassium (Augmentin - 875mg Tablet) 1 tab PO BID@0800, 1730 [facility] Last Admin: 12/02/17 17:18 Dose: 1 tab Aspirin (Asa -) 81 mg PO DAILY [facility] Last Admin: 12/02/17 09:42 Dose: 81 mg Benzocaine/Menthol (Cepacol Lozenge -) 1 each MM PRN PRN PRN Reason: SORE THROAT Last Admin: 12/03/17 02:58 Dose: 1 each Gemfibrozil (Lopid -) 600 mg PO BID@0700,1630 [facility] Last Admin: 12/03/17 07:17 Dose: 600 mg Guaifenesin (Diabetic Tussin Dm -) 10 ml PO Q6H PRN PRN Reason: COUGH Last Admin: 12/02/17 13:00 Dose: 10 ml Heparin Sodium (Porcine) (Heparin -) 1,000 unit IVPUSH PRN PRN PRN Reason: Heparin Last Admin: 12/02/17 09:41 Dose: 1,000 unit Heparin Sodium (Porcine) (Heparin -) 5,000 unit IVPUSH PRN PRN PRN Reason: Heparin Last Admin: 11/29/17 00:57 Dose: 5,000 unit Insulin Aspart (Novolog Vial Sliding Scale -) 0 vial SQ ACHS [facility] PRN Reason: Protocol Last Admin: 12/03/17 06:07 Dose: Not Given Insulin Detemir (Levemir Vial) 20 units SQ BID@0700,2200 [facility] Last Admin: 12/03/17 07:17 Dose: 20 units Isosorbide Mononitrate (Imdur -) 30 mg PO DAILY [facility] Last Admin: 12/02/17 09:42 Dose: 30 mg Losartan Potassium (Cozaar -) 50 mg PO DAILY [facility] Last Admin: 12/02/17 09:43 Dose: 50 mg Magnesium Oxide (Mag-Ox -) 400 mg PO BID [facility] Last Admin: 12/02/17 21:54 Dose: 400 mg Methyl Salicylate (Ronnie-Myers -) 1 applic TP BID [facility] Last Admin: 12/02/17 21:57 Dose: 1 applic Metoprolol Tartrate (Lopressor -) 50 mg PO BID [facility] Last Admin: 12/02/17 21:54 Dose: 50 mg Nitroglycerin (Nitrostat -) 0.4 mg SL PRN PRN PRN Reason: FOR CHEST PAIN Last Admin: 12/02/17 17:28 Dose: 0.4 mg Non-Formulary Medication (Colesevelam Hcl [Welchol (Nf)]) 625 mg PO BID [facility] Oseltamivir Phosphate (Tamiflu -) 30 mg PO BID [facility] Stop: 12/08/17 09:59 Ranitidine HCl (Zantac -) 150 mg PO DAILY [facility] Last Admin: 12/02/17 09:42 Dose: 150 mg Ranolazine (Ranexa -) 500 mg PO BID [facility] Last Admin: 12/02/17 21:54 Dose: 500 mg Tamsulosin HCl (Flomax -) 0.8 mg PO DAILY@0830 [facility] Last Admin: 12/02/17 09:42 Dose: 0.8 mg Warfarin Sodium (Coumadin -) 10 mg PO DAILY@1800 [facility] Last Admin: 12/02/17 17:15 Dose: 10 mg - Objective Vital Signs: Vital Signs Temperature 97.5 F L 12/03/17 06:00 Pulse Rate 52 L 12/03/17 06:00 Respiratory Rate 20 12/03/17 06:00 Blood Pressure 145/63 12/03/17 06:00 O2 Sat by Pulse Oximetry (%) 95 12/02/17 21:00 Constitutional: Yes: Well Nourished Eyes: Yes: PERRL HENT: Yes: Atraumatic Neck: Yes: Supple Cardiovascular: Yes: Regular Rate and Rhythm, S1, S2 Respiratory: Yes: CTA Bilaterally Gastrointestinal: Yes: Normal Bowel Sounds, Soft, Abdomen, Obese. No: Tenderness Edema: No Labs: CBC, BMP 12/03/17 07:25 12/03/17 07:25 INR, PTT INR 2.30 (0.82-1.09) H 12/03/17 07:25 Problem List - Problems (1) CVA (cerebral vascular accident) Code(s): I63.9 - CEREBRAL INFARCTION, UNSPECIFIED Qualifiers: CVA mechanism: embolism Precerebral and cerebral artery: middle cerebral artery Laterality of affected vessel: right Qualified Code(s): I63.411 - Cerebral infarction due to embolism of right middle cerebral artery (2) CAD (coronary artery disease) Code(s): I25.10 - ATHSCL HEART DISEASE OF [place] CORONARY ARTERY W/O ANG PCTRS Qualifiers: Coronary Disease-Associated Artery/Lesion type: [place] artery [place] vs. transplanted heart: [place] heart Associated angina: without angina Qualified Code(s): I25.10 - Atherosclerotic heart disease of [place] coronary artery without angina pectoris (3) CKD (chronic kidney disease) Code(s): N18.9 - CHRONIC KIDNEY DISEASE, UNSPECIFIED Qualifiers: Chronic kidney disease stage: stage 3 (moderate) Qualified Code(s): N18.3 - Chronic kidney disease, stage 3 (moderate) (4) Cholelithiasis without obstruction Code(s): K80.20 - CALCULUS OF GALLBLADDER W/O CHOLECYSTITIS W/O OBSTRUCTION (5) Demand ischemia Code(s): I24.8 - OTHER FORMS OF ACUTE ISCHEMIC HEART DISEASE (6) 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 Code(s): E11.9 - TYPE 2 DIABETES MELLITUS WITHOUT COMPLICATIONS Qualifiers: 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 type: type 2 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 complication status: without complication 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 intermediate insulin use: without manager terminal use Qualified Code(s): E11.9 - Type 2 diabetes mellitus without complications (7) HTN (hypertension) Code(s): I10 - ESSENTIAL (PRIMARY) HYPERTENSION Qualifiers: Hypertension type: essential hypertension Qualified Code(s): I10 - Essential (primary) hypertension (8) Hypercholesteremia Code(s): E78.0 - PURE HYPERCHOLESTEROLEMIA * DO NOT USE * (9) Kidney stone Code(s): N20.0 - CALCULUS OF KIDNEY (10) Obstructive sleep apnea of adult Code(s): G47.33 - OBSTRUCTIVE SLEEP APNEA (ADULT) (PEDIATRIC) (11) Paroxysmal a-fib Code(s): I48.0 - PAROXYSMAL ATRIAL FIBRILLATION (12) S/P coronary artery stent placement Code(s): Z95.5 - PRESENCE OF CORONARY ANGIOPLASTY IMPLANT AND GRAFT (13) UTI (urinary tract infection) Code(s): N39.0 - URINARY TRACT INFECTION, SITE NOT SPECIFIED Qualifiers: Urinary tract infection type: site unspecified Hematuria presence: without hematuria Qualified Code(s): N39.0 - Urinary tract infection, site not specified Assessment/Plan 1. Clinical presentation c/w CVA - suspect embolic source with the presence of history of atrial fibrillation 2. Paroxysmal atrial fibrillation [id number] score of 5 on NOAC - ? noncompliance vs. breakthrough neurologic event despite NOAC 3. CAD, PCI/stent, angina pectoris 4. Diastolic LV dysfunction, chronic class 1 NYHA classification LV failur - euvolemic/compensated 5. HTN/HCVD 6. Diabetes Mellitus 7. Hypercholesterolemia 8. KATJA 9. CKD 10. Elevated troponin due to demand ischemia 11. History of obstructive uropathy, BPH with history of UTI 12. History of nephrolithiasis 13. Anemia PLAN: 1. Continue Coumadin with INR between 2 and 3. 2. Continue Metoprolol, Amlodipine and Ranexa. Continue Imdur. 4. Continue Losartan 5. Antibiotic coverage 6. Check troponin 7. radiation monitor shows sinus bradycardia < 50 bpm at times. Will decide whether to continue with monitoring or to transfer to floor care Further plans are to follow Riley Brandt MD
[2017-12-03] MEDS ORDERED: PT OWN MED DRAWER 7, Y5N ONE ×2 (09:55→22:16)
[2017-12-03] MEDS: MAGNESIUM OXIDE 400 MG TABLET (FP) PO SCH ×2 (10:08→22:19)
[2017-12-03] MEDS: ISOSORBIDE MONONITRATE 30 MG TAB.SR.24H (FP) PO SCH (10:08)
[2017-12-03] MEDS: AMOX TR/POT CLAV 875MG/125MG TABLETS (FP) PO SCH ×2 (10:08→16:58)
[2017-12-03] MEDS: ASPIRIN 81 MG CHEWABLE TABLETS PO SCH (10:08)
[2017-12-03] MEDS: OSELTAMIVIR PHOSPHATE 30 MG CAPSULE PO SCH ×2 (10:08→22:20)
[2017-12-03] MEDS: RANITIDINE HCL 150 MG TABLET (FP) PO SCH (10:08)
[2017-12-03] MEDS: amLODIPine BESYLATE 2.5 MG TABLET (FP) PO SCH (10:08)
[2017-12-03] MEDS: LOSARTAN POTASSIUM 50 MG TABLET (FP) PO SCH (10:08)
[2017-12-03] MEDS: RANOLAZINE E.R. 500 MG TABLET (FP) PO SCH ×2 (10:08→22:19)
[2017-12-03] MEDS: METOPROLOL TARTRATE 50 MG TABLET (FP) PO SCH ×2 (10:08→22:19)
[2017-12-03] MEDS: TAMSULOSIN HCL 0.4 MG CAP.ER.24H (FP) PO SCH (10:08)
[2017-12-03] MEDS: METHYL SALICYLATE/MENTHOL OINT 30 GM TUBE TP SCH ×2 (10:09→22:19)
[2017-12-03 12:00] LABS: ALBUMIN 3.3 g/dl (3.4-5.0); ALK PHOS 121 U/L (45-117); BILIRUBIN,DIRECT < 0.2 mg/dL (0.0-0.2); BILIRUBIN,TOTAL 0.2 mg/dL (0.2-1.0); SGOT/AST 13 U/L (15-37); SGPT/ALT 12 U/L (12-78); TOT PROT 7.2 g/dl (6.4-8.2)
--- NOTE | 2017-12-03 13:12 | PN ---
Progress Note (short form) - Note Progress Note: Subjective: The patient was seen and examined at the bedside, he reports feeling better today Tmax 101.3 Current Medications Generic Name Dose Route Start Last Admin Trade Name Jake PRN Reason Stop Dose Admin Acetaminophen 650 mg 11/28/17 20:25 12/03/17 02:57 Tylenol - PO 650 mg Q6H PRN Administration PAIN Amlodipine Besylate 2.5 mg 11/29/17 10:00 12/03/17 10:08 Norvasc - PO 2.5 mg DAILY LONNIE Administration Amoxicillin/Clavulanate Potassium 1 tab 11/30/17 17:30 12/03/17 10:08 Augmentin - 875mg Tablet PO 1 tab BID@0800,1730 LONNIE Administration Aspirin 81 mg 11/30/17 10:00 12/03/17 10:08 Asa - PO 81 mg DAILY LONNIE Administration Benzocaine/Menthol 1 each 12/02/17 08:46 12/03/17 02:58 Cepacol Lozenge - MM 1 each PRN PRN Administration SORE THROAT Gemfibrozil 600 mg 11/29/17 16:30 12/03/17 07:17 Lopid - PO 600 mg BID@0700,1630 LONNIE Administration Guaifenesin 10 ml 12/02/17 09:53 12/02/17 13:00 Diabetic Tussin Dm - PO 10 ml Q6H PRN Administration COUGH Heparin Sodium (Porcine) 1,000 unit 11/28/17 16:17 12/02/17 09:41 Heparin - IVPUSH 1,000 unit PRN PRN Administration Heparin Heparin Sodium (Porcine) 5,000 unit 11/28/17 16:17 11/29/17 00:57 Heparin - IVPUSH 5,000 unit PRN PRN Administration Heparin Insulin Aspart 0 vial 11/28/17 13:08 12/03/17 12:00 Novolog Vial Sliding Scale - SQ 6 units ACHS LONNIE Administration Protocol Insulin Detemir 20 units 11/28/17 22:00 12/03/17 07:17 Levemir Vial SQ 20 units BID@0700,2200 LONNIE Administration Isosorbide Mononitrate 30 mg 11/29/17 10:00 12/03/17 10:08 Imdur - PO 30 mg DAILY LONNIE Administration Lidocaine 1 patch 12/03/17 12:30 Lidoderm Patch - TP DAILY [facility] Losartan Potassium 50 mg 12/02/17 10:00 12/03/17 10:08 Cozaar - PO 50 mg DAILY LONNIE Administration Magnesium Oxide 400 mg 11/30/17 10:00 12/03/17 10:08 Mag-Ox - PO 400 mg BID LONNIE Administration Methyl Salicylate 1 applic 12/02/17 10:00 12/03/17 10:09 Ronnie-Myers - TP 1 applic BID [facility] Administration Metoprolol Tartrate 50 mg 12/01/17 09:46 12/03/17 10:08 Lopressor - PO 50 mg BID LONNIE Administration Miscellaneous 1 each 12/03/17 22:00 Lidoderm Patch Removal MC DAILY@2200 [facility] Nitroglycerin 0.4 mg 11/28/17 13:06 12/02/17 17:28 Nitrostat - SL 0.4 mg PRN PRN Administration FOR CHEST PAIN Non-Formulary Medication 625 mg 11/28/17 22:00 Colesevelam Hcl [Welchol (Nf)] PO BID [facility] Oseltamivir Phosphate 30 mg 12/03/17 10:00 12/03/17 10:08 Tamiflu - PO 12/08/17 09:59 30 mg BID LONNIE Administration Ranitidine HCl 150 mg 11/29/17 10:00 12/03/17 10:08 Zantac - PO 150 mg DAILY LONNIE Administration Ranolazine 500 mg 11/28/17 22:00 12/03/17 10:08 Ranexa - PO 500 mg BID LONNIE Administration Tamsulosin HCl 0.8 mg 12/01/17 08:30 12/03/17 10:08 Flomax - PO 0.8 mg DAILY@0830 [facility] Administration Warfarin Sodium 10 mg 11/30/17 18:00 12/02/17 17:15 Coumadin - PO 10 mg DAILY@1800 LONNIE Administration Objective: Vital Signs Period Temp Pulse Resp BP Sys/Crawford Pulse Ox Last 24 Hr 97.5 F-99.8 F 52-62 16-20 114-147/48-69 95-95 Physical Exam: General: NAD Lungs: CTA bilaterally Heart: RRR, S1S2 Abd: Soft, non-tender, non-distended. Normoactive bowel sounds Ext: Warm, well-perfused. 2+ DP/PT bilaterally CBCD WBC 3.9 K/mm3 (4.0-10.0) L D 12/03/17 07:25 RBC 3.85 M/mm3 (4.00-5.60) L 12/03/17 07:25 Hgb 11.9 GM/dL (11.7-16.9) 12/03/17 07:25 Hct 36.0 % (35.4-49) 12/03/17 07:25 MCV 93.5 fl (80-96) 12/03/17 07:25 MCHC 33.0 g/dl (32.0-35.9) 12/03/17 07:25 RDW 13.5 % (11.9-15.9) 12/03/17 07:25 Plt Count 297 K/MM3 (134-434) 12/03/17 07:25 MPV 8.8 fl (7.5-11.1) 12/03/17 07:25 CMP Sodium 137 mmol/L (136-145) 12/03/17 07:25 Potassium 4.2 mmol/L (3.5-5.1) 12/03/17 07:25 Chloride 103 mmol/L (98-107) 12/03/17 07:25 Carbon Dioxide 26 mmol/L (21-32) 12/03/17 07:25 Anion Gap 8 (8-16) 12/03/17 07:25 BUN 22 mg/dL (7-18) H 12/03/17 07:25 Creatinine 1.5 mg/dL (0.7-1.3) H 12/03/17 07:25 Creat Clearance w eGFR 49.68 (>60) 12/01/17 06:30 Random Glucose 120 mg/dL (74-106) H D 12/03/17 07:25 Calcium 8.9 mg/dL (8.5-10.1) 12/03/17 07:25 Total Bilirubin 0.2 mg/dL (0.2-1.0) D 12/03/17 07:25 AST 13 U/L (15-37) L 12/03/17 07:25 ALT 12 U/L (12-78) 12/03/17 07:25 Alkaline Phosphatase 121 U/L (45-117) H 12/03/17 07:25 Total Protein 7.2 g/dl (6.4-8.2) 12/03/17 07:25 Albumin 3.3 g/dl (3.4-5.0) L 12/03/17 07:25 CARDIAC ENZYMES Creatine Kinase 85 IU/L (39-308) 12/03/17 07:25 Troponin I 0.26 ng/ml (0.00-0.05) H 12/03/17 07:25 Microbiology 12/02/17 11:30 Nasopharyngeal Swab Influenza Types A,B Antigen (GENA) - Final 12/02/17 11:30 Nasopharyngeal Swab - Final 11/28/17 15:00 Urine - Urine Clean Catch Urine Culture - Final NO GROWTH OBTAINED Assessment: This is a 72 year old male with PMHx of HTN, hyperlipidemia, IDDM, a.fib (on Eliquis), CAD s/p stenting 5 years ago, TIAs, short term memory deficits, BPH, CKD stage 3, renal calculi, chronic hip pain, diverticulosis, who presented to the ED with chest pain and an episode of right sided facial droop and weakness which has since resolved. Plan: 1) Febrile overnight - Tmax 101.3 - Influenza A&B negative however high suspicion for influenza so the patient was started on tamiflu - F/u cultures - Appreciate ID consult 2) Acute CVA - MRI brain with scattered, acute cortical infarcts involving the right frontal , right parietal and right parieto-occipital lobe suggesting a central embolic phenomenon - INR therapeutic, continue Coumadin - Allergy to statins - Continue ASA - Continue Lopid - Continue Welchol - Appreciate neurology consult 3) Atypical chest pain - Reproducible, start lidocaine patch - Elevated trop, peaked at 0.32 - Continue ASA - Appreciate cardiology consult 4) Right ear pain - Being treated for otitis media - Appreciate ENT consult, outpatient follow-up for audiogram 5) LORY on CKD - Stable - Kidney/bladder ultrasound: morphologically normal kidneys and urinary bladder with no evidence of hydronephrosis or acute pathology, large post void residual. Markedly enlarged prostate gland - Appreciate nephrology consult 6) S/p fall - Patient reports no head trauma however has short term memory deficits - Head CT and MRI with no intracranial hemorrhage 7) CAD s/p cardiac stents - 11/16/17 Echo: LV borderline dilated, LV function normal; RV normal; BLAE; mild MR; trace to mild TR; trace AI - Hold Losartan 2/2 LORY - Continue Ranexa 8) Paroxysmal A.fib - Therapeutic on Comadin 9) IDDM - Continue Levemir - BGM ACHS - ISS ACHS 10) F/E/N: - Diabetic, low sodium diet - Monitor electrolytes 11) Prophylaxis: - Therapeutic on Coumadin - PT daily 12) Dispo: - Requires continued inpatient care CODE STATUS: FULL CODE Visit type - Emergency Visit Emergency Visit: Yes ED Registration Date: 11/28/17 Care time: The patient presented to the Emergency Department on the above date and was hospitalized for further evaluation of their emergent condition. - New Patient This patient is new to me today: No - Critical Care Critical Care patient: No
[2017-12-03] MEDS: LIDOCAINE 5% TOPICAL PATCH TP SCH (13:49)
[2017-12-03] MEDS: WARFARIN NA 7.5 MG TABLET (FP) PO SCH (17:03)
[2017-12-03] MEDS: LIDOCAINE PATCH REMOVAL MC SCH (22:19)
[2017-12-04] MEDS: INSULIN DETEMIR 100 UNITS/ML MDV SQ SCH ×2 (06:16→21:40)
[2017-12-04] MEDS: INSULIN SLIDING SCALE (NOVOLOG) 1 VIAL SQ SCH ×4 (06:17→21:41)
[2017-12-04 07:32] LABS: HEMATOCRIT 37.9 % (35.4-49); HEMOGLOBIN 12.2 GM/dL (11.7-16.9); MCH 30.5 pg (25.7-33.7); MCHC 32.3 g/dl (32.0-35.9); MEAN CELL VOLUME 94.3 fl (80-96); MEAN PLT VOLUME 9.2 fl (7.5-11.1); PLATELET COUNT 319 K/MM3 (134-434); RBC 4.02 M/mm3 (4.00-5.60); RDW 13.5 % (11.9-15.9); WHITE BLOOD COUNT 5.3 K/mm3 (4.0-10.0)
[2017-12-04 07:48] LABS: INR 2.49 (0.82-1.09); PROTHROMBIN TIME (PATIENT) 28.1 SEC (9.98-11.88)
[2017-12-04 07:51] LABS: ACTIVATED PTT 44.7 SECONDS (26.9-34.4)
[2017-12-04 08:00] LABS: ALBUMIN 3.4 g/dl (3.4-5.0); ALK PHOS 132 U/L (45-117); ANION GAP 8 (8-16); BILIRUBIN,TOTAL 0.3 mg/dL (0.2-1.0); BLOOD UREA NITROGEN 29 mg/dL (7-18); CALCIUM 8.6 mg/dL (8.5-10.1); CHLORIDE 100 mmol/L (98-107); CO2 26 mmol/L (21-32); CREATININE 1.8 mg/dL (0.7-1.3); GLUCOSE,RANDOM 138 mg/dL (74-106); POTASSIUM 4.8 mmol/L (3.5-5.1); SGOT/AST 20 U/L (15-37); SGPT/ALT 16 U/L (12-78); SODIUM 134 mmol/L (136-145); TOT PROT 7.6 g/dl (6.4-8.2)
[2017-12-04] MEDS: GEMFIBROZIL 600 MG TABLET (FP) PO SCH ×2 (10:46→17:32)
[2017-12-04] MEDS: AMOX TR/POT CLAV 875MG/125MG TABLETS (FP) PO SCH ×2 (10:46→17:32)
[2017-12-04] MEDS: RANITIDINE HCL 150 MG TABLET (FP) PO SCH (10:47)
[2017-12-04] MEDS: RANOLAZINE E.R. 500 MG TABLET (FP) PO SCH ×2 (10:47→21:40)
[2017-12-04] MEDS: ASPIRIN 81 MG CHEWABLE TABLETS PO SCH (10:47)
[2017-12-04] MEDS: LIDOCAINE 5% TOPICAL PATCH TP SCH (10:47)
[2017-12-04] MEDS: MAGNESIUM OXIDE 400 MG TABLET (FP) PO SCH ×2 (10:47→21:40)
--- NOTE | 2017-12-04 10:47 | PN ---
Progress Note, Physician History of Present Illness: No further chest discomfort, right facial droop improving, right earache improving. - Current Medication List Current Medications: Active Medications Acetaminophen (Tylenol -) 650 mg PO Q6H PRN PRN Reason: PAIN Last Admin: 12/03/17 02:57 Dose: 650 mg Amlodipine Besylate (Norvasc -) 2.5 mg PO DAILY [facility] Last Admin: 12/03/17 10:08 Dose: 2.5 mg Amoxicillin/Clavulanate Potassium (Augmentin - 875mg Tablet) 1 tab PO BID@0800, 1730 [facility] Last Admin: 12/03/17 16:58 Dose: 1 tab Aspirin (Asa -) 81 mg PO DAILY [facility] Last Admin: 12/03/17 10:08 Dose: 81 mg Benzocaine/Menthol (Cepacol Lozenge -) 1 each MM PRN PRN PRN Reason: SORE THROAT Last Admin: 12/03/17 02:58 Dose: 1 each Gemfibrozil (Lopid -) 600 mg PO BID@0700,1630 [facility] Last Admin: 12/03/17 16:58 Dose: 600 mg Guaifenesin (Diabetic Tussin Dm -) 10 ml PO Q6H PRN PRN Reason: COUGH Last Admin: 12/02/17 13:00 Dose: 10 ml Heparin Sodium (Porcine) (Heparin -) 1,000 unit IVPUSH PRN PRN PRN Reason: Heparin Last Admin: 12/02/17 09:41 Dose: 1,000 unit Heparin Sodium (Porcine) (Heparin -) 5,000 unit IVPUSH PRN PRN PRN Reason: Heparin Last Admin: 11/29/17 00:57 Dose: 5,000 unit Insulin Aspart (Novolog Vial Sliding Scale -) 0 vial SQ ACHS [facility] PRN Reason: Protocol Last Admin: 12/04/17 06:17 Dose: Not Given Insulin Detemir (Levemir Vial) 20 units SQ BID@0700,2200 [facility] Last Admin: 12/04/17 06:16 Dose: 20 units Isosorbide Mononitrate (Imdur -) 30 mg PO DAILY [facility] Last Admin: 12/03/17 10:08 Dose: 30 mg Lidocaine (Lidoderm Patch -) 1 patch TP DAILY [facility] Last Admin: 12/03/17 13:49 Dose: 1 patch Losartan Potassium (Cozaar -) 50 mg PO DAILY [facility] Last Admin: 12/03/17 10:08 Dose: 50 mg Magnesium Oxide (Mag-Ox -) 400 mg PO BID [facility] Last Admin: 12/03/17 22:19 Dose: 400 mg Methyl Salicylate (Ronnie-Myers -) 1 applic TP BID [facility] Last Admin: 12/03/17 22:19 Dose: 1 applic Metoprolol Tartrate (Lopressor -) 50 mg PO BID [facility] Last Admin: 12/03/17 22:19 Dose: 50 mg Miscellaneous (Lidoderm Patch Removal) 1 each MC DAILY@2200 [facility] Last Admin: 12/03/17 22:19 Dose: 1 each Nitroglycerin (Nitrostat -) 0.4 mg SL PRN PRN PRN Reason: FOR CHEST PAIN Last Admin: 12/02/17 17:28 Dose: 0.4 mg Non-Formulary Medication (Colesevelam Hcl [Welchol (Nf)]) 625 mg PO BID [facility] Oseltamivir Phosphate (Tamiflu -) 30 mg PO BID [facility] Stop: 12/08/17 09:59 Last Admin: 12/03/17 22:20 Dose: 30 mg Ranitidine HCl (Zantac -) 150 mg PO DAILY [facility] Last Admin: 12/03/17 10:08 Dose: 150 mg Ranolazine (Ranexa -) 500 mg PO BID [facility] Last Admin: 12/03/17 22:19 Dose: 500 mg Tamsulosin HCl (Flomax -) 0.8 mg PO DAILY@0830 [facility] Last Admin: 12/03/17 10:08 Dose: 0.8 mg Warfarin Sodium (Coumadin -) 7.5 mg PO DAILY@1800 [facility] Last Admin: 12/03/17 17:03 Dose: 7.5 mg - Objective Vital Signs: Vital Signs Temperature 97.8 F 12/04/17 06:00 Pulse Rate 54 L 12/04/17 06:00 Respiratory Rate 18 12/04/17 06:00 Blood Pressure 109/48 12/04/17 06:00 O2 Sat by Pulse Oximetry (%) 96 12/03/17 21:00 Constitutional: Yes: No Distress, Calm Neck: Yes: Supple Cardiovascular: Yes: Regular Rate and Rhythm Respiratory: Yes: Regular, Diminished Gastrointestinal: Yes: Normal Bowel Sounds, Soft Edema: No Labs: CBC, BMP 12/04/17 05:35 12/04/17 05:35 INR, PTT INR 2.49 (0.82-1.09) H 12/04/17 05:35 - ....Imaging EKG: Report Reviewed (Tele: SB @ 50s) Problem List - Problems (1) LORY (acute kidney injury) Code(s): N17.9 - ACUTE KIDNEY FAILURE, UNSPECIFIED (2) Acute ischemic stroke Code(s): I63.9 - CEREBRAL INFARCTION, UNSPECIFIED (3) Afib Code(s): I48.91 - UNSPECIFIED ATRIAL FIBRILLATION Qualifiers: Atrial fibrillation type: paroxysmal Qualified Code(s): I48.0 - Paroxysmal atrial fibrillation (4) CAD (coronary artery disease) Code(s): I25.10 - ATHSCL HEART DISEASE OF [place] CORONARY ARTERY W/O ANG PCTRS Qualifiers: Coronary Disease-Associated Artery/Lesion type: [place] artery [place] vs. transplanted heart: [place] heart Associated angina: without angina Qualified Code(s): I25.10 - Atherosclerotic heart disease of [place] coronary artery without angina pectoris (5) Demand ischemia Code(s): I24.8 - OTHER FORMS OF ACUTE ISCHEMIC HEART DISEASE (6) 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 Code(s): E11.9 - TYPE 2 DIABETES MELLITUS WITHOUT COMPLICATIONS Qualifiers: 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 type: type 2 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 complication status: without complication 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 penitentiary insulin use: without penitentiary use Qualified Code(s): E11.9 - Type 2 diabetes mellitus without complications (7) HTN (hypertension) Code(s): I10 - ESSENTIAL (PRIMARY) HYPERTENSION Qualifiers: Hypertension type: essential hypertension Qualified Code(s): I10 - Essential (primary) hypertension (8) History of cardiac radiofrequency ablation (RFA) Code(s): Z98.89 - OTHER SPECIFIED POSTPROCEDURAL STATES * DO NOT USE * (9) Hyperlipidemia Code(s): E78.5 - HYPERLIPIDEMIA, UNSPECIFIED Qualifiers: Hyperlipidemia type: mixed hyperlipidemia Qualified Code(s): E78.2 - Mixed hyperlipidemia (10) Obstructive sleep apnea of adult Code(s): G47.33 - OBSTRUCTIVE SLEEP APNEA (ADULT) (PEDIATRIC) (11) Paroxysmal a-fib Code(s): I48.0 - PAROXYSMAL ATRIAL FIBRILLATION (12) S/P coronary artery stent placement Code(s): Z95.5 - PRESENCE OF CORONARY ANGIOPLASTY IMPLANT AND GRAFT (13) UTI (urinary tract infection) Code(s): N39.0 - URINARY TRACT INFECTION, SITE NOT SPECIFIED Qualifiers: Urinary tract infection type: site unspecified Hematuria presence: without hematuria Qualified Code(s): N39.0 - Urinary tract infection, site not specified Assessment/Plan Echocardiography yesterday revealed normal LV size and function, bi-atrial dilatation, with mild MR Echocardiography dated 12/21/2015 normal LV size and function, with mild TR and [place] MPI study dated 12/21/2015 revealed small-moderate size apical defect compatible with mild ischemia with preserved LV function 1. Acute right cerebal embolic CVA in context of atrial fibrillation despite Eliquis therapy 2. Paroxysmal atrial fibrillation [id number] score of 6 on NOAC's - ? noncompliance vs. breakthrough neurologic event (NOAC failure) 3. CAD post multi-vessel PCI stent angina pectoris, with evidence of demand ischemic injury, stable on medical therapy 4. Diastolic LV dysfunction with chronic class I NYHA classification LV failure , compensated/euvolemic 5. HTN 6. DM 7. Hyperlipidemia 8. History of KATJA 9. Acute on chronic kidney disease due to impaired hemodynamics 10. History of obstructive uropathy related to BPH with uro-sepsis, hematuria resolved 11. History of nephrolithiasis 12. Anemia PLAN: 1. Continue Lopressor 50 bid as hemodynamics permit 2. Continue Amlodipine 2.5 qd 3. Continue Cozaar 50 qd with close mentoring of renal function, hemodynamics permitting 4. Continue Imdur 30 qd 5. Continue Ranexa 500 bid 6. Continue Coumadin per INR 2-3 and ASA 81 qd with caution and close monitoring of CBC maintaining Hg equal or > 8.0 7. Continue Lopid 600 bid and Welchol 625 bid
[2017-12-04] MEDS: LOSARTAN POTASSIUM 50 MG TABLET (FP) PO SCH (10:57)
[2017-12-04] MEDS: METOPROLOL TARTRATE 50 MG TABLET (FP) PO SCH ×2 (10:57→21:40)
[2017-12-04] MEDS: TAMSULOSIN HCL 0.4 MG CAP.ER.24H (FP) PO SCH (10:57)
[2017-12-04] MEDS: ISOSORBIDE MONONITRATE 30 MG TAB.SR.24H (FP) PO SCH (10:58)
[2017-12-04] MEDS: amLODIPine BESYLATE 2.5 MG TABLET (FP) PO SCH (10:58)
[2017-12-04] MEDS: OSELTAMIVIR PHOSPHATE 30 MG CAPSULE PO SCH ×2 (10:59→21:40)
[2017-12-04] MEDS: BENZOCAINE/MENTH/CETYLPYRD CL 1 EACH LOZENGE MM PRN (10:59)
--- NOTE | 2017-12-04 13:16 | PN ---
Progress Note (short form) - Note Progress Note: Subjective: The patient was seen and examined at the bedside, he reports feeling better today Current Medications Generic Name Dose Route Start Last Admin Trade Name Jake PRN Reason Stop Dose Admin Acetaminophen 650 mg 11/28/17 20:25 12/03/17 02:57 Tylenol - PO 650 mg Q6H PRN Administration PAIN Amlodipine Besylate 2.5 mg 11/29/17 10:00 12/04/17 10:58 Norvasc - PO 2.5 mg DAILY LONNIE Administration Amoxicillin/Clavulanate Potassium 1 tab 11/30/17 17:30 12/04/17 10:46 Augmentin - 875mg Tablet PO 1 tab BID@0800,1730 LONNIE Administration Aspirin 81 mg 11/30/17 10:00 12/04/17 10:47 Asa - PO 81 mg DAILY LONNIE Administration Benzocaine/Menthol 1 each 12/02/17 08:46 12/04/17 10:59 Cepacol Lozenge - MM 1 each PRN PRN Administration SORE THROAT Gemfibrozil 600 mg 11/29/17 16:30 12/04/17 10:46 Lopid - PO 600 mg BID@0700,1630 LONNIE Administration Guaifenesin 10 ml 12/02/17 09:53 12/02/17 13:00 Diabetic Tussin Dm - PO 10 ml Q6H PRN Administration COUGH Heparin Sodium (Porcine) 1,000 unit 11/28/17 16:17 12/02/17 09:41 Heparin - IVPUSH 1,000 unit PRN PRN Administration Heparin Heparin Sodium (Porcine) 5,000 unit 11/28/17 16:17 11/29/17 00:57 Heparin - IVPUSH 5,000 unit PRN PRN Administration Heparin Insulin Aspart 0 vial 11/28/17 13:08 12/04/17 12:39 Novolog Vial Sliding Scale - SQ 2 units ACHS LONNIE Administration Protocol Insulin Detemir 20 units 11/28/17 22:00 12/04/17 06:16 Levemir Vial SQ 20 units BID@0700,2200 LONNIE Administration Isosorbide Mononitrate 30 mg 11/29/17 10:00 12/04/17 10:58 Imdur - PO 30 mg DAILY LONNIE Administration Lidocaine 1 patch 12/03/17 12:30 12/04/17 10:47 Lidoderm Patch - TP 1 patch DAILY LONNIE Administration Losartan Potassium 50 mg 12/02/17 10:00 12/04/17 10:57 Cozaar - PO 50 mg DAILY LONNIE Administration Magnesium Oxide 400 mg 11/30/17 10:00 12/04/17 10:47 Mag-Ox - PO 400 mg BID LONNIE Administration Methyl Salicylate 1 applic 12/02/17 10:00 12/03/17 22:19 Ronnie-Myers - TP 1 applic BID LONNIE Administration Metoprolol Tartrate 50 mg 12/01/17 09:46 12/04/17 10:57 Lopressor - PO 50 mg BID LONNIE Administration Miscellaneous 1 each 12/03/17 22:00 12/03/17 22:19 Lidoderm Patch Removal MC 1 each DAILY@2200 LONNIE Administration Nitroglycerin 0.4 mg 11/28/17 13:06 12/02/17 17:28 Nitrostat - SL 0.4 mg PRN PRN Administration FOR CHEST PAIN Non-Formulary Medication 625 mg 11/28/17 22:00 Colesevelam Hcl [Welchol (Nf)] PO BID [facility] Oseltamivir Phosphate 30 mg 12/03/17 10:00 12/04/17 10:59 Tamiflu - PO 12/08/17 09:59 30 mg BID LONNIE Administration Ranitidine HCl 150 mg 11/29/17 10:00 12/04/17 10:47 Zantac - PO 150 mg DAILY LONNIE Administration Ranolazine 500 mg 11/28/17 22:00 12/04/17 10:47 Ranexa - PO 500 mg BID LONNIE Administration Tamsulosin HCl 0.8 mg 12/01/17 08:30 12/04/17 10:57 Flomax - PO 0.8 mg DAILY@0830 LONNIE Administration Warfarin Sodium 7.5 mg 12/03/17 18:00 12/03/17 17:03 Coumadin - PO 7.5 mg DAILY@1800 LONNIE Administration Objective: Vital Signs Period Temp Pulse Resp BP Sys/Crawford Pulse Ox Last 24 Hr 97.8 F-98.6 F 52-58 16-20 109-135/48-68 96 Physical Exam: General: NAD Lungs: CTA bilaterally Heart: RRR, S1S2 Abd: Soft, non-tender, non-distended. Normoactive bowel sounds Ext: Warm, well-perfused. 2+ DP/PT bilaterally CBCD WBC 5.3 K/mm3 (4.0-10.0) D 12/04/17 05:35 RBC 4.02 M/mm3 (4.00-5.60) 12/04/17 05:35 Hgb 12.2 GM/dL (11.7-16.9) 12/04/17 05:35 Hct 37.9 % (35.4-49) 12/04/17 05:35 MCV 94.3 fl (80-96) 12/04/17 05:35 MCHC 32.3 g/dl (32.0-35.9) 12/04/17 05:35 RDW 13.5 % (11.9-15.9) 12/04/17 05:35 Plt Count 319 K/MM3 (134-434) 12/04/17 05:35 MPV 9.2 fl (7.5-11.1) 12/04/17 05:35 CMP Sodium 134 mmol/L (136-145) L 12/04/17 05:35 Potassium 4.8 mmol/L (3.5-5.1) 12/04/17 05:35 Chloride 100 mmol/L (98-107) 12/04/17 05:35 Carbon Dioxide 26 mmol/L (21-32) 12/04/17 05:35 Anion Gap 8 (8-16) 12/04/17 05:35 BUN 29 mg/dL (7-18) H D 12/04/17 05:35 Creatinine 1.8 mg/dL (0.7-1.3) H 12/04/17 05:35 Creat Clearance w eGFR 37.17 (>60) 12/04/17 05:35 Random Glucose 138 mg/dL (74-106) H 12/04/17 05:35 Calcium 8.6 mg/dL (8.5-10.1) 12/04/17 05:35 Total Bilirubin 0.3 mg/dL (0.2-1.0) D 12/04/17 05:35 AST 20 U/L (15-37) D 12/04/17 05:35 ALT 16 U/L (12-78) D 12/04/17 05:35 Alkaline Phosphatase 132 U/L (45-117) H 12/04/17 05:35 Total Protein 7.6 g/dl (6.4-8.2) 12/04/17 05:35 Albumin 3.4 g/dl (3.4-5.0) 12/04/17 05:35 CARDIAC ENZYMES Creatine Kinase 85 IU/L (39-308) 12/03/17 07:25 Troponin I 0.26 ng/ml (0.00-0.05) H 12/03/17 07:25 Microbiology 12/02/17 13:20 Rectal Swab VRE Culture - Preliminary Pending Organism 12/02/17 Unknown Urine - Urine Clean Catch Urine Culture - Final NO GROWTH OBTAINED 12/02/17 20:30 Blood - Peripheral Venous Blood Culture - Preliminary NO GROWTH OBTAINED AFTER 24 HOURS, INCUBATION TO CONTINUE FOR 4 DAYS. 12/02/17 19:10 Blood - Peripheral Venous Blood Culture - Preliminary NO GROWTH OBTAINED AFTER 24 HOURS, INCUBATION TO CONTINUE FOR 4 DAYS. 12/02/17 11:30 Nasopharyngeal Swab Influenza Types A,B Antigen (GENA) - Final 12/02/17 11:30 Nasopharyngeal Swab - Final 11/28/17 15:00 Urine - Urine Clean Catch Urine Culture - Final NO GROWTH OBTAINED Assessment: This is a 72 year old male with PMHx of HTN, hyperlipidemia, IDDM, a.fib (on Eliquis), CAD s/p stenting 5 years ago, TIAs, short term memory deficits, BPH, CKD stage 3, renal calculi, chronic hip pain, diverticulosis, who presented to the ED with chest pain and an episode of right sided facial droop and weakness which has since resolved. Plan: 1) Febrile - Afebrile overnight - Influenza A&B negative however high suspicion for influenza so the patient was started on tamiflu - VRE culture pending organism - Appreciate ID consult 2) Acute CVA - MRI brain with scattered, acute cortical infarcts involving the right frontal , right parietal and right parieto-occipital lobe suggesting a central embolic phenomenon - INR therapeutic, continue Coumadin - Allergy to statins - Continue ASA - Continue Lopid - Continue Welchol - Appreciate neurology consult 3) Atypical chest pain - Reproducible, start lidocaine patch - Elevated trop, peaked at 0.32 - Continue ASA - Appreciate cardiology consult 4) Right ear pain - Being treated for otitis media - Continue Augmentin - Appreciate ENT consult, outpatient follow-up for audiogram 5) LORY on CKD - slightly worse today - Kidney/bladder ultrasound: morphologically normal kidneys and urinary bladder with no evidence of hydronephrosis or acute pathology, large post void residual. Markedly enlarged prostate gland - Appreciate nephrology consult 6) S/p fall - Patient reports no head trauma however has short term memory deficits - Head CT and MRI with no intracranial hemorrhage 7) CAD s/p cardiac stents - 11/16/17 Echo: LV borderline dilated, LV function normal; RV normal; BLAE; mild MR; trace to mild TR; trace AI - Hold Losartan 2/2 LORY - Continue Ranexa 8) Paroxysmal A.fib - Therapeutic on Comadin 9) IDDM - Continue Levemir - BGM ACHS - ISS ACHS 10) F/E/N: - Diabetic, low sodium diet - Monitor electrolytes 11) Prophylaxis: - Therapeutic on Coumadin - PT daily 12) Dispo: - Requires continued inpatient care CODE STATUS: FULL CODE Visit type - Emergency Visit Emergency Visit: Yes ED Registration Date: 11/28/17 Care time: The patient presented to the Emergency Department on the above date and was hospitalized for further evaluation of their emergent condition. - New Patient This patient is new to me today: No - Critical Care Critical Care patient: No
--- NOTE | 2017-12-04 13:32 | PN ---
Progress Note, Physician History of Present Illness: Temp 101.3 reported. Noted to be leukopenic C/O intermittant L chest pain, R ear pain No urinary tract complaints denies dysuria/ hematuria Blood, urine c/s no growth CXR no infiltrate - Current Medication List Current Medications: Active Medications Acetaminophen (Tylenol -) 650 mg PO Q6H PRN PRN Reason: PAIN Last Admin: 12/03/17 02:57 Dose: 650 mg Amlodipine Besylate (Norvasc -) 2.5 mg PO DAILY [facility] Last Admin: 12/04/17 10:58 Dose: 2.5 mg Amoxicillin/Clavulanate Potassium (Augmentin - 875mg Tablet) 1 tab PO BID@0800, 1730 [facility] Last Admin: 12/04/17 10:46 Dose: 1 tab Aspirin (Asa -) 81 mg PO DAILY [facility] Last Admin: 12/04/17 10:47 Dose: 81 mg Benzocaine/Menthol (Cepacol Lozenge -) 1 each MM PRN PRN PRN Reason: SORE THROAT Last Admin: 12/04/17 10:59 Dose: 1 each Gemfibrozil (Lopid -) 600 mg PO BID@0700,1630 [facility] Last Admin: 12/04/17 10:46 Dose: 600 mg Guaifenesin (Diabetic Tussin Dm -) 10 ml PO Q6H PRN PRN Reason: COUGH Last Admin: 12/02/17 13:00 Dose: 10 ml Heparin Sodium (Porcine) (Heparin -) 1,000 unit IVPUSH PRN PRN PRN Reason: Heparin Last Admin: 12/02/17 09:41 Dose: 1,000 unit Heparin Sodium (Porcine) (Heparin -) 5,000 unit IVPUSH PRN PRN PRN Reason: Heparin Last Admin: 11/29/17 00:57 Dose: 5,000 unit Insulin Aspart (Novolog Vial Sliding Scale -) 0 vial SQ ACHS [facility] PRN Reason: Protocol Last Admin: 12/04/17 12:39 Dose: 2 units Insulin Detemir (Levemir Vial) 20 units SQ BID@0700,2200 [facility] Last Admin: 12/04/17 06:16 Dose: 20 units Isosorbide Mononitrate (Imdur -) 30 mg PO DAILY [facility] Last Admin: 12/04/17 10:58 Dose: 30 mg Lidocaine (Lidoderm Patch -) 1 patch TP DAILY [facility] Last Admin: 12/04/17 10:47 Dose: 1 patch Losartan Potassium (Cozaar -) 50 mg PO DAILY [facility] Last Admin: 12/04/17 10:57 Dose: 50 mg Magnesium Oxide (Mag-Ox -) 400 mg PO BID [facility] Last Admin: 12/04/17 10:47 Dose: 400 mg Methyl Salicylate (Ronnie-Myers -) 1 applic TP BID [facility] Last Admin: 12/03/17 22:19 Dose: 1 applic Metoprolol Tartrate (Lopressor -) 50 mg PO BID [facility] Last Admin: 12/04/17 10:57 Dose: 50 mg Miscellaneous (Lidoderm Patch Removal) 1 each MC DAILY@2200 [facility] Last Admin: 12/03/17 22:19 Dose: 1 each Nitroglycerin (Nitrostat -) 0.4 mg SL PRN PRN PRN Reason: FOR CHEST PAIN Last Admin: 12/02/17 17:28 Dose: 0.4 mg Non-Formulary Medication (Colesevelam Hcl [Welchol (Nf)]) 625 mg PO BID [facility] Oseltamivir Phosphate (Tamiflu -) 30 mg PO BID [facility] Stop: 12/08/17 09:59 Last Admin: 12/04/17 10:59 Dose: 30 mg Ranitidine HCl (Zantac -) 150 mg PO DAILY [facility] Last Admin: 12/04/17 10:47 Dose: 150 mg Ranolazine (Ranexa -) 500 mg PO BID [facility] Last Admin: 12/04/17 10:47 Dose: 500 mg Tamsulosin HCl (Flomax -) 0.8 mg PO DAILY@0830 [facility] Last Admin: 12/04/17 10:57 Dose: 0.8 mg Warfarin Sodium (Coumadin -) 7.5 mg PO DAILY@1800 [facility] Last Admin: 12/03/17 17:03 Dose: 7.5 mg - Objective Vital Signs: Vital Signs Temperature 98 F 12/04/17 10:00 Pulse Rate 58 L 12/04/17 10:00 Respiratory Rate 20 12/04/17 10:00 Blood Pressure 134/66 12/04/17 10:00 O2 Sat by Pulse Oximetry (%) 96 12/03/17 21:00 Constitutional: Yes: No Distress Eyes: Yes: Conjunctiva Clear HENT: Yes: Other (Throat slightly injected. No erythema. R ear canal less red. TM no erythema) Cardiovascular: Yes: Regular Rate and Rhythm, S1, S2 Respiratory: Yes: CTA Bilaterally Gastrointestinal: Yes: Normal Bowel Sounds, Soft, Tenderness Labs: CBC, BMP 12/04/17 05:35 12/04/17 05:35 INR, PTT INR 2.49 (0.82-1.09) H 12/04/17 05:35 Assessment/Plan Fever ? source S/P TIA Chest pain syndrome R otitis media Azotemia- improved Continue po Augmentin. Complete 7d course. Agree with empiric Tamiflu.
--- NOTE | 2017-12-04 13:47 | PN ---
Progress Note (short form) - Note Progress Note: Renal follow up for LORY on CKD Pt seen and examined at the bedside awake and alert has left sided abd pain no sob, chest pain, fever, chills Vital Signs Temperature 98 F 12/04/17 10:00 Pulse Rate 58 L 12/04/17 10:00 Respiratory Rate 20 12/04/17 10:00 Blood Pressure 134/66 12/04/17 10:00 O2 Sat by Pulse Oximetry (%) 96 12/03/17 21:00 Intake & Output 12/01/17 12/02/17 12/03/17 12/04/17 23:59 23:59 23:59 23:59 Intake Total 2080 1238 400 350 Output Total 700 300 400 Balance 1380 938 400 -50 NAD RRR CTA soft NT/ND No LE edema CBC, BMP 12/04/17 05:35 12/04/17 05:35 Current Medications Acetaminophen (Tylenol -) 650 mg PO Q6H PRN PRN Reason: PAIN Last Admin: 12/03/17 02:57 Dose: 650 mg Amlodipine Besylate (Norvasc -) 2.5 mg PO DAILY [facility] Last Admin: 12/04/17 10:58 Dose: 2.5 mg Amoxicillin/Clavulanate Potassium (Augmentin - 875mg Tablet) 1 tab PO BID@0800, 1730 [facility] Last Admin: 12/04/17 10:46 Dose: 1 tab Aspirin (Asa -) 81 mg PO DAILY [facility] Last Admin: 12/04/17 10:47 Dose: 81 mg Benzocaine/Menthol (Cepacol Lozenge -) 1 each MM PRN PRN PRN Reason: SORE THROAT Last Admin: 12/04/17 10:59 Dose: 1 each Gemfibrozil (Lopid -) 600 mg PO BID@0700,1630 [facility] Last Admin: 12/04/17 10:46 Dose: 600 mg Guaifenesin (Diabetic Tussin Dm -) 10 ml PO Q6H PRN PRN Reason: COUGH Last Admin: 12/02/17 13:00 Dose: 10 ml Heparin Sodium (Porcine) (Heparin -) 1,000 unit IVPUSH PRN PRN PRN Reason: Heparin Last Admin: 12/02/17 09:41 Dose: 1,000 unit Heparin Sodium (Porcine) (Heparin -) 5,000 unit IVPUSH PRN PRN PRN Reason: Heparin Last Admin: 11/29/17 00:57 Dose: 5,000 unit Insulin Aspart (Novolog Vial Sliding Scale -) 0 vial SQ ACHS [facility] PRN Reason: Protocol Last Admin: 12/04/17 12:39 Dose: 2 units Insulin Detemir (Levemir Vial) 20 units SQ BID@0700,2200 [facility] Last Admin: 12/04/17 06:16 Dose: 20 units Isosorbide Mononitrate (Imdur -) 30 mg PO DAILY [facility] Last Admin: 12/04/17 10:58 Dose: 30 mg Lidocaine (Lidoderm Patch -) 1 patch TP DAILY [facility] Last Admin: 12/04/17 10:47 Dose: 1 patch Losartan Potassium (Cozaar -) 50 mg PO DAILY [facility] Last Admin: 12/04/17 10:57 Dose: 50 mg Magnesium Oxide (Mag-Ox -) 400 mg PO BID [facility] Last Admin: 12/04/17 10:47 Dose: 400 mg Methyl Salicylate (Ronnie-Myers -) 1 applic TP BID [facility] Last Admin: 12/03/17 22:19 Dose: 1 applic Metoprolol Tartrate (Lopressor -) 50 mg PO BID [facility] Last Admin: 12/04/17 10:57 Dose: 50 mg Miscellaneous (Lidoderm Patch Removal) 1 each MC DAILY@2200 [facility] Last Admin: 12/03/17 22:19 Dose: 1 each Nitroglycerin (Nitrostat -) 0.4 mg SL PRN PRN PRN Reason: FOR CHEST PAIN Last Admin: 12/02/17 17:28 Dose: 0.4 mg Non-Formulary Medication (Colesevelam Hcl [Welchol (Nf)]) 625 mg PO BID [facility] Oseltamivir Phosphate (Tamiflu -) 30 mg PO BID [facility] Stop: 12/08/17 09:59 Last Admin: 12/04/17 10:59 Dose: 30 mg Ranitidine HCl (Zantac -) 150 mg PO DAILY [facility] Last Admin: 12/04/17 10:47 Dose: 150 mg Ranolazine (Ranexa -) 500 mg PO BID [facility] Last Admin: 12/04/17 10:47 Dose: 500 mg Tamsulosin HCl (Flomax -) 0.8 mg PO DAILY@0830 [facility] Last Admin: 12/04/17 10:57 Dose: 0.8 mg Warfarin Sodium (Coumadin -) 7.5 mg PO DAILY@1800 [facility] Last Admin: 12/03/17 17:03 Dose: 7.5 mg 72 year old gentleman with PMhx of Nephrolithiasis, Mild CKD (baseline Cr 1.3-2) , DM on insulin, Atrial flutter, CAD, TIA, BPH with urinary retention who presented with complaints of chest pain, unilateral extremity weakness and facial asymmetry with Cr of 2.5. #Acute on Chronic Renal Insufficiency Cr noted to rise to 1.8, likely due to introduction of losartan it is expected to see mild rise in Cr zac trend BUN/Cr no acute changes for now #TIA/CVA with multiple cortical infarcts seen on MRI on heparin gtt Neurology following on Warfarin #Chest Pain on Tele CK WNL, Troponins are flat cardiology following #Fever continue Abx and anti-virals as per SANTOS Sparks Do
[2017-12-04] MEDS: WARFARIN NA 7.5 MG TABLET (FP) PO SCH (17:33)
[2017-12-04] MEDS: LIDOCAINE PATCH REMOVAL MC SCH (21:42)
[2017-12-04] MEDS: METHYL SALICYLATE/MENTHOL OINT 30 GM TUBE TP SCH (21:42)
[2017-12-05] MEDS: INSULIN SLIDING SCALE (NOVOLOG) 1 VIAL SQ SCH ×4 (06:01→21:44)
[2017-12-05] MEDS: INSULIN DETEMIR 100 UNITS/ML MDV SQ SCH ×2 (06:15→21:43)
[2017-12-05 08:27] LABS: INR 3.12 (0.82-1.09); PROTHROMBIN TIME (PATIENT) 35.3 SEC (9.98-11.88)
--- NOTE | 2017-12-05 08:43 | PN ---
Progress Note (short form) - Note Progress Note: Chief Complaint: Events noted, notes reviewed, complaining of left sided chest wall pain/tenderness, denies any dyspnea, reports persistent right ear discomfort History of Present Illness: Seen and examined ion telemetry. Events noted, notes reviewed, complaining of left sided chest wall pain/tenderness, denies any dyspnea, reports persistent right ear discomfort It is unclear if the patient was compliant with Eliquis therapy administration, he stated ask my (would not consider him Eliquis failure unless it is verified) Echocardiography dated 11/30/2017 revealed normal LV size and function, bi- atrial dilatation, with mild MR Echocardiography dated 12/21/2015 normal LV size and function, with mild TR and TN MPI study dated 12/21/2015 revealed small-moderate size apical defect compatible with mild ischemia with preserved LV function Medications: Current Medications Acetaminophen (Tylenol -) 650 mg PO Q6H PRN PRN Reason: PAIN Last Admin: 12/03/17 02:57 Dose: 650 mg Amlodipine Besylate (Norvasc -) 2.5 mg PO DAILY [facility] Last Admin: 12/04/17 10:58 Dose: 2.5 mg Amoxicillin/Clavulanate Potassium (Augmentin - 875mg Tablet) 1 tab PO BID@0800, 1730 [facility] Last Admin: 12/04/17 17:32 Dose: 1 tab Aspirin (Asa -) 81 mg PO DAILY [facility] Last Admin: 12/04/17 10:47 Dose: 81 mg Benzocaine/Menthol (Cepacol Lozenge -) 1 each MM PRN PRN PRN Reason: SORE THROAT Last Admin: 12/04/17 10:59 Dose: 1 each Gemfibrozil (Lopid -) 600 mg PO BID@0700,1630 [facility] Last Admin: 12/04/17 17:32 Dose: 600 mg Guaifenesin (Diabetic Tussin Dm -) 10 ml PO Q6H PRN PRN Reason: COUGH Last Admin: 12/02/17 13:00 Dose: 10 ml Heparin Sodium (Porcine) (Heparin -) 1,000 unit IVPUSH PRN PRN PRN Reason: Heparin Last Admin: 12/02/17 09:41 Dose: 1,000 unit Heparin Sodium (Porcine) (Heparin -) 5,000 unit IVPUSH PRN PRN PRN Reason: Heparin Last Admin: 11/29/17 00:57 Dose: 5,000 unit Insulin Aspart (Novolog Vial Sliding Scale -) 0 vial SQ ACHS [facility] PRN Reason: Protocol Last Admin: 12/05/17 06:01 Dose: Not Given Insulin Detemir (Levemir Vial) 20 units SQ BID@0700,2200 [facility] Last Admin: 12/05/17 06:15 Dose: 20 units Isosorbide Mononitrate (Imdur -) 30 mg PO DAILY [facility] Last Admin: 12/04/17 10:58 Dose: 30 mg Lidocaine (Lidoderm Patch -) 1 patch TP DAILY [facility] Last Admin: 12/04/17 10:47 Dose: 1 patch Losartan Potassium (Cozaar -) 50 mg PO DAILY [facility] Last Admin: 12/04/17 10:57 Dose: 50 mg Magnesium Oxide (Mag-Ox -) 400 mg PO BID [facility] Last Admin: 12/04/17 21:40 Dose: 400 mg Methyl Salicylate (Ronnie-Myers -) 1 applic TP BID [facility] Last Admin: 12/04/17 21:42 Dose: 1 applic Metoprolol Tartrate (Lopressor -) 50 mg PO BID [facility] Last Admin: 12/04/17 21:40 Dose: 50 mg Miscellaneous (Lidoderm Patch Removal) 1 each MC DAILY@2200 [facility] Last Admin: 12/04/17 21:42 Dose: 1 each Nitroglycerin (Nitrostat -) 0.4 mg SL PRN PRN PRN Reason: FOR CHEST PAIN Last Admin: 12/02/17 17:28 Dose: 0.4 mg Non-Formulary Medication (Colesevelam Hcl [Welchol (Nf)]) 625 mg PO BID [facility] Oseltamivir Phosphate (Tamiflu -) 30 mg PO BID [facility] Stop: 12/08/17 09:59 Last Admin: 12/04/17 21:40 Dose: 30 mg Ranitidine HCl (Zantac -) 150 mg PO DAILY [facility] Last Admin: 12/04/17 10:47 Dose: 150 mg Ranolazine (Ranexa -) 500 mg PO BID [facility] Last Admin: 12/04/17 21:40 Dose: 500 mg Tamsulosin HCl (Flomax -) 0.8 mg PO DAILY@0830 [facility] Last Admin: 12/04/17 10:57 Dose: 0.8 mg Warfarin Sodium (Coumadin -) 7.5 mg PO DAILY@1800 [facility] Last Admin: 12/04/17 17:33 Dose: 7.5 mg Review of Systems Cardiovascular: As noted above Respiratory: denies: denies: Cough or Sputum Production Gastrointestinal: denies: Nausea, Vomiting, Diarrhea, Constipation or Abdominal Discomfort Musculoskeletal: No Symptoms Reported Endocrine: No Symptoms Reported Vital Signs: Last Vital Signs Temp Pulse Resp BP Pulse Ox 97.5 F L 53 L 18 125/53 96 12/05/17 05:00 12/05/17 05:00 12/05/17 05:00 12/05/17 05:00 12/04/17 21:00 Intake & Output 12/02/17 12/03/17 12/04/17 12/05/17 23:59 23:59 23:59 23:59 Intake Total 1238 400 350 310 Output Total 300 400 Balance 938 400 -50 310 Constitutional: No Distress, Calm Neck: Supple Negative JVD Respiratory: Clear to A&P Bilaterally Cardiovascular: S1 S2 Regular rate Rhythm Grade 1/6 SM Gastrointestinal: Soft Benign Normal Bowel Sounds Ext: No Edema Labs: CBC, BMP 12/04/17 05:35 12/05/17 06:45 INR, PTT INR 3.12 (0.82-1.09) H 12/05/17 06:45 Assessment/Plan ASSESSMENT: 1. Acute right cerebal embolic CVA in context of atrial fibrillation despite Eliquis therapy, as outlined above unclear if Eliquis failure, on Coumadin, supra-therapeutic INR 2. Paroxysmal atrial fibrillation [id number] score of 6 was on NOAC's - question noncompliance vs. breakthrough neurologic event (NOAC failure) 3. CAD post multi-vessel PCI stent angina pectoris, with evidence of demand ischemic injury, stable on medical therapy 4. Diastolic LV dysfunction with chronic class I NYHA classification LV failure , compensated/euvolemic 5. HTN 6. DM 7. Hyperlipidemia 8. Influenza 9. History of KATJA 10. Chronic kidney disease 11. History of obstructive uropathy related to BPH with uro-sepsis, hematuria resolved 12. History of nephrolithiasis 13. Anemia PLAN: 1. Continue Lopressor, hemodynamics permitting 2. Continue Amlodipine, hemodynamics permitting 3. Continue Cozaar with close mentoring of renal function, hemodynamics permitting 4. Continue Imdur, hemodynamics permitting 5. Continue Ranexa 6. Continue Coumadin as per INR and ASA with caution and close monitoring of CBC maintaining Hg equal or > 8.0, hold todays dose of Coumadin martin Tapia M.D.
[2017-12-05 08:44] LABS: ANION GAP 9 (8-16); BLOOD UREA NITROGEN 32 mg/dL (7-18); CALCIUM 8.4 mg/dL (8.5-10.1); CHLORIDE 104 mmol/L (98-107); CO2 23 mmol/L (21-32); CREATININE 1.6 mg/dL (0.7-1.3); GLUCOSE,RANDOM 105 mg/dL (74-106); MAGNESIUM 1.9 mg/dL (1.8-2.4); PHOSPHOROUS 4.4 mg/dL (2.5-4.9); POTASSIUM 4.4 mmol/L (3.5-5.1); SODIUM 136 mmol/L (136-145)
[2017-12-05] MEDS: TAMSULOSIN HCL 0.4 MG CAP.ER.24H (FP) PO SCH (08:55)
[2017-12-05] MEDS: AMOX TR/POT CLAV 875MG/125MG TABLETS (FP) PO SCH ×2 (08:55→16:56)
[2017-12-05] MEDS: GEMFIBROZIL 600 MG TABLET (FP) PO SCH ×2 (08:56→16:56)
[2017-12-05] MEDS: METOPROLOL TARTRATE 50 MG TABLET (FP) PO SCH ×2 (09:00→21:37)
[2017-12-05] MEDS: ASPIRIN 81 MG CHEWABLE TABLETS PO SCH (09:00)
[2017-12-05] MEDS: MAGNESIUM OXIDE 400 MG TABLET (FP) PO SCH ×2 (09:00→21:41)
[2017-12-05] MEDS: RANITIDINE HCL 150 MG TABLET (FP) PO SCH (09:00)
[2017-12-05] MEDS: LOSARTAN POTASSIUM 50 MG TABLET (FP) PO SCH (09:00)
[2017-12-05] MEDS: RANOLAZINE E.R. 500 MG TABLET (FP) PO SCH ×2 (09:00→21:41)
[2017-12-05] MEDS: amLODIPine BESYLATE 2.5 MG TABLET (FP) PO SCH (09:00)
[2017-12-05] MEDS: ISOSORBIDE MONONITRATE 30 MG TAB.SR.24H (FP) PO SCH (09:01)
[2017-12-05] MEDS: METHYL SALICYLATE/MENTHOL OINT 30 GM TUBE TP SCH ×3 (09:01→21:39)
[2017-12-05] MEDS: LIDOCAINE 5% TOPICAL PATCH TP SCH (09:01)
[2017-12-05] MEDS ORDERED: PT OWN MED DRAWER 7, Y5N ONE ×2 (09:03→16:27)
--- NOTE | 2017-12-05 10:47 | PN ---
Progress Note (short form) - Note Progress Note: Renal follow up for LORY on CKD Pt seen and examined at the bedside complains of MS left chest pain no sob, abd pain, N/V/D CP is reproduceble Vital Signs Temperature 97.5 F L 12/05/17 05:00 Pulse Rate 53 L 12/05/17 05:00 Respiratory Rate 18 12/05/17 05:00 Blood Pressure 125/53 12/05/17 05:00 O2 Sat by Pulse Oximetry (%) 96 12/04/17 21:00 NAD RRR CTA soft NT/ND No LE edema CBC, BMP 12/04/17 05:35 12/05/17 06:45 Current Medications Acetaminophen (Tylenol -) 650 mg PO Q6H PRN PRN Reason: PAIN Last Admin: 12/03/17 02:57 Dose: 650 mg Amlodipine Besylate (Norvasc -) 2.5 mg PO DAILY [facility] Last Admin: 12/05/17 09:00 Dose: 2.5 mg Amoxicillin/Clavulanate Potassium (Augmentin - 875mg Tablet) 1 tab PO BID@0800, 1730 [facility] Last Admin: 12/05/17 08:55 Dose: 1 tab Aspirin (Asa -) 81 mg PO DAILY [facility] Last Admin: 12/05/17 09:00 Dose: 81 mg Benzocaine/Menthol (Cepacol Lozenge -) 1 each MM PRN PRN PRN Reason: SORE THROAT Last Admin: 12/04/17 10:59 Dose: 1 each Gemfibrozil (Lopid -) 600 mg PO BID@0700,1630 [facility] Last Admin: 12/05/17 08:56 Dose: 600 mg Guaifenesin (Diabetic Tussin Dm -) 10 ml PO Q6H PRN PRN Reason: COUGH Last Admin: 12/02/17 13:00 Dose: 10 ml Heparin Sodium (Porcine) (Heparin -) 1,000 unit IVPUSH PRN PRN PRN Reason: Heparin Last Admin: 12/02/17 09:41 Dose: 1,000 unit Heparin Sodium (Porcine) (Heparin -) 5,000 unit IVPUSH PRN PRN PRN Reason: Heparin Last Admin: 11/29/17 00:57 Dose: 5,000 unit Insulin Aspart (Novolog Vial Sliding Scale -) 0 vial SQ ACHS [facility] PRN Reason: Protocol Last Admin: 12/05/17 06:01 Dose: Not Given Insulin Detemir (Levemir Vial) 20 units SQ BID@0700,2200 [facility] Last Admin: 12/05/17 06:15 Dose: 20 units Isosorbide Mononitrate (Imdur -) 30 mg PO DAILY [facility] Last Admin: 12/05/17 09:01 Dose: 30 mg Lidocaine (Lidoderm Patch -) 1 patch TP DAILY [facility] Last Admin: 12/05/17 09:01 Dose: 1 patch Losartan Potassium (Cozaar -) 50 mg PO DAILY [facility] Last Admin: 12/05/17 09:00 Dose: 50 mg Magnesium Oxide (Mag-Ox -) 400 mg PO BID [facility] Last Admin: 12/05/17 09:00 Dose: 400 mg Methyl Salicylate (Ronnie-Myers -) 1 applic TP BID [facility] Last Admin: 12/05/17 09:06 Dose: Not Given Metoprolol Tartrate (Lopressor -) 50 mg PO BID [facility] Last Admin: 12/05/17 09:00 Dose: 50 mg Miscellaneous (Lidoderm Patch Removal) 1 each MC DAILY@2199 [facility] Last Admin: 12/04/17 21:42 Dose: 1 each Nitroglycerin (Nitrostat -) 0.4 mg SL PRN PRN PRN Reason: FOR CHEST PAIN Last Admin: 12/02/17 17:28 Dose: 0.4 mg Non-Formulary Medication (Colesevelam Hcl [Welchol (Nf)]) 625 mg PO BID [facility] Oseltamivir Phosphate (Tamiflu -) 30 mg PO BID [facility] Stop: 12/08/17 09:59 Last Admin: 12/04/17 21:40 Dose: 30 mg Ranitidine HCl (Zantac -) 150 mg PO DAILY [facility] Last Admin: 12/05/17 09:00 Dose: 150 mg Ranolazine (Ranexa -) 500 mg PO BID [facility] Last Admin: 12/05/17 09:00 Dose: 500 mg Tamsulosin HCl (Flomax -) 0.8 mg PO DAILY@0830 [facility] Last Admin: 12/05/17 08:55 Dose: 0.8 mg Warfarin Sodium (Coumadin -) 7.5 mg PO DAILY@1800 [facility] Last Admin: 12/04/17 17:33 Dose: 7.5 mg 72 year old gentleman with PMhx of Nephrolithiasis, Mild CKD (baseline Cr 1.3-2) , DM on insulin, Atrial flutter, CAD, TIA, BPH with urinary retention who presented with complaints of chest pain, unilateral extremity weakness and facial asymmetry with Cr of 2.5. #Acute on Chronic Renal Insufficiency Cr is 1.6, stable on ARB continue to trend as inpatient #TIA/CVA with multiple cortical infarcts seen on MRI Neurology following on Warfarin, INR high today #Chest Pain on Tele CK WNL, Troponins are flat cardiology following #Costocondritis pain control with lidocanie patch Armando Sparks Do
--- NOTE | 2017-12-05 11:12 | PN ---
Progress Note (short form) - Note Progress Note: Subjective: The patient was seen and examined at the bedside, he reports feeling better today Current Medications Generic Name Dose Route Start Last Admin Trade Name Jake PRN Reason Stop Dose Admin Acetaminophen 650 mg 11/28/17 20:25 12/03/17 02:57 Tylenol - PO 650 mg Q6H PRN Administration PAIN Amlodipine Besylate 2.5 mg 11/29/17 10:00 12/04/17 10:58 Norvasc - PO 2.5 mg DAILY LONNIE Administration Amoxicillin/Clavulanate Potassium 1 tab 11/30/17 17:30 12/04/17 10:46 Augmentin - 875mg Tablet PO 1 tab BID@0800,1730 LONNIE Administration Aspirin 81 mg 11/30/17 10:00 12/04/17 10:47 Asa - PO 81 mg DAILY LONNIE Administration Benzocaine/Menthol 1 each 12/02/17 08:46 12/04/17 10:59 Cepacol Lozenge - MM 1 each PRN PRN Administration SORE THROAT Gemfibrozil 600 mg 11/29/17 16:30 12/04/17 10:46 Lopid - PO 600 mg BID@0700,1630 LONNIE Administration Guaifenesin 10 ml 12/02/17 09:53 12/02/17 13:00 Diabetic Tussin Dm - PO 10 ml Q6H PRN Administration COUGH Heparin Sodium (Porcine) 1,000 unit 11/28/17 16:17 12/02/17 09:41 Heparin - IVPUSH 1,000 unit PRN PRN Administration Heparin Heparin Sodium (Porcine) 5,000 unit 11/28/17 16:17 11/29/17 00:57 Heparin - IVPUSH 5,000 unit PRN PRN Administration Heparin Insulin Aspart 0 vial 11/28/17 13:08 12/04/17 12:39 Novolog Vial Sliding Scale - SQ 2 units ACHS LONNIE Administration Protocol Insulin Detemir 20 units 11/28/17 22:00 12/04/17 06:16 Levemir Vial SQ 20 units BID@0700,2200 LONNIE Administration Isosorbide Mononitrate 30 mg 11/29/17 10:00 12/04/17 10:58 Imdur - PO 30 mg DAILY LONNIE Administration Lidocaine 1 patch 12/03/17 12:30 12/04/17 10:47 Lidoderm Patch - TP 1 patch DAILY LONNIE Administration Losartan Potassium 50 mg 12/02/17 10:00 12/04/17 10:57 Cozaar - PO 50 mg DAILY LONNIE Administration Magnesium Oxide 400 mg 11/30/17 10:00 12/04/17 10:47 Mag-Ox - PO 400 mg BID LONNIE Administration Methyl Salicylate 1 applic 12/02/17 10:00 12/03/17 22:19 Ronnie-Myers - TP 1 applic BID LONNIE Administration Metoprolol Tartrate 50 mg 12/01/17 09:46 12/04/17 10:57 Lopressor - PO 50 mg BID LONNIE Administration Miscellaneous 1 each 12/03/17 22:00 12/03/17 22:19 Lidoderm Patch Removal MC 1 each DAILY@2200 LONNIE Administration Nitroglycerin 0.4 mg 11/28/17 13:06 12/02/17 17:28 Nitrostat - SL 0.4 mg PRN PRN Administration FOR CHEST PAIN Non-Formulary Medication 625 mg 11/28/17 22:00 Colesevelam Hcl [Welchol (Nf)] PO BID [facility] Oseltamivir Phosphate 30 mg 12/03/17 10:00 12/04/17 10:59 Tamiflu - PO 12/08/17 09:59 30 mg BID LONNIE Administration Ranitidine HCl 150 mg 11/29/17 10:00 12/04/17 10:47 Zantac - PO 150 mg DAILY LONNIE Administration Ranolazine 500 mg 11/28/17 22:00 12/04/17 10:47 Ranexa - PO 500 mg BID LONNIE Administration Tamsulosin HCl 0.8 mg 12/01/17 08:30 12/04/17 10:57 Flomax - PO 0.8 mg DAILY@0830 LONNIE Administration Warfarin Sodium 7.5 mg 12/03/17 18:00 12/03/17 17:03 Coumadin - PO 7.5 mg DAILY@1800 LONNIE Administration Objective: Vital Signs Period Temp Pulse Resp BP Sys/Crawford Pulse Ox Last 24 Hr 97.8 F-98.6 F 52-58 16-20 109-135/48-68 96 Physical Exam: General: NAD Lungs: CTA bilaterally Heart: RRR, S1S2 Abd: Soft, non-tender, non-distended. Normoactive bowel sounds Ext: Warm, well-perfused. 2+ DP/PT bilaterally MSK: Reproducible left chest pain CBCD WBC 5.3 K/mm3 (4.0-10.0) D 12/04/17 05:35 RBC 4.02 M/mm3 (4.00-5.60) 12/04/17 05:35 Hgb 12.2 GM/dL (11.7-16.9) 12/04/17 05:35 Hct 37.9 % (35.4-49) 12/04/17 05:35 MCV 94.3 fl (80-96) 12/04/17 05:35 MCHC 32.3 g/dl (32.0-35.9) 12/04/17 05:35 RDW 13.5 % (11.9-15.9) 12/04/17 05:35 Plt Count 319 K/MM3 (134-434) 12/04/17 05:35 MPV 9.2 fl (7.5-11.1) 12/04/17 05:35 CMP Sodium 134 mmol/L (136-145) L 12/04/17 05:35 Potassium 4.8 mmol/L (3.5-5.1) 12/04/17 05:35 Chloride 100 mmol/L (98-107) 12/04/17 05:35 Carbon Dioxide 26 mmol/L (21-32) 12/04/17 05:35 Anion Gap 8 (8-16) 12/04/17 05:35 BUN 29 mg/dL (7-18) H D 12/04/17 05:35 Creatinine 1.8 mg/dL (0.7-1.3) H 12/04/17 05:35 Creat Clearance w eGFR 37.17 (>60) 12/04/17 05:35 Random Glucose 138 mg/dL (74-106) H 12/04/17 05:35 Calcium 8.6 mg/dL (8.5-10.1) 12/04/17 05:35 Total Bilirubin 0.3 mg/dL (0.2-1.0) D 12/04/17 05:35 AST 20 U/L (15-37) D 12/04/17 05:35 ALT 16 U/L (12-78) D 12/04/17 05:35 Alkaline Phosphatase 132 U/L (45-117) H 12/04/17 05:35 Total Protein 7.6 g/dl (6.4-8.2) 12/04/17 05:35 Albumin 3.4 g/dl (3.4-5.0) 12/04/17 05:35 CARDIAC ENZYMES Creatine Kinase 85 IU/L (39-308) 12/03/17 07:25 Troponin I 0.26 ng/ml (0.00-0.05) H 12/03/17 07:25 Microbiology 12/02/17 13:20 Rectal Swab VRE Culture - Preliminary Pending Organism 12/02/17 Unknown Urine - Urine Clean Catch Urine Culture - Final NO GROWTH OBTAINED 12/02/17 20:30 Blood - Peripheral Venous Blood Culture - Preliminary NO GROWTH OBTAINED AFTER 24 HOURS, INCUBATION TO CONTINUE FOR 4 DAYS. 12/02/17 19:10 Blood - Peripheral Venous Blood Culture - Preliminary NO GROWTH OBTAINED AFTER 24 HOURS, INCUBATION TO CONTINUE FOR 4 DAYS. 12/02/17 11:30 Nasopharyngeal Swab Influenza Types A,B Antigen (GENA) - Final 12/02/17 11:30 Nasopharyngeal Swab - Final 11/28/17 15:00 Urine - Urine Clean Catch Urine Culture - Final NO GROWTH OBTAINED Assessment: This is a 72 year old male with PMHx of HTN, hyperlipidemia, IDDM, a.fib (on Eliquis), CAD s/p stenting 5 years ago, TIAs, short term memory deficits, BPH, CKD stage 3, renal calculi, chronic hip pain, diverticulosis, who presented to the ED with chest pain and an episode of right sided facial droop and weakness which has since resolved. Plan: 1) Febrile - Afebrile overnight - Influenza A&B negative however high suspicion for influenza so the patient was started on tamiflu - VRE culture pending organism - Appreciate ID consult 2) Acute CVA - MRI brain with scattered, acute cortical infarcts involving the right frontal , right parietal and right parieto-occipital lobe suggesting a central embolic phenomenon - INR supratherapeutic, hold Coumadin tonight and recheck INR tomorrow morning - Allergy to statins - Continue ASA - Continue Lopid - Continue Welchol - Appreciate neurology consult 3) Atypical chest pain - Costochondritis. reproducible, continue lidocaine patch - Elevated trop, peaked at 0.32 - Continue ASA - Appreciate cardiology consult 4) Right ear pain - Being treated for otitis media - Continue Augmentin - Appreciate ENT consult, outpatient follow-up for audiogram 5) LORY on CKD - Improving - Kidney/bladder ultrasound: morphologically normal kidneys and urinary bladder with no evidence of hydronephrosis or acute pathology, large post void residual. Markedly enlarged prostate gland - Appreciate nephrology consult 6) S/p fall - Patient reports no head trauma however has short term memory deficits - Head CT and MRI with no intracranial hemorrhage 7) CAD s/p cardiac stents - 11/16/17 Echo: LV borderline dilated, LV function normal; RV normal; BLAE; mild MR; trace to mild TR; trace AI - Hold Losartan 2/ LORY - Continue Ranexa 8) Paroxysmal A.fib - INR supratherapeutic on Comadin, hold tonights dose of Coumadin and recheck levels in the morning 9) IDDM - Continue Levemir - BGM ACHS - ISS ACHS 10) F/E/N: - Diabetic, low sodium diet - Monitor electrolytes 11) Prophylaxis: - INR supratherapeutic on Coumadin - PT daily 12) Dispo: - Requires continued inpatient care CODE STATUS: FULL CODE Visit type - Emergency Visit Emergency Visit: Yes ED Registration Date: 11/28/17 Care time: The patient presented to the Emergency Department on the above date and was hospitalized for further evaluation of their emergent condition. - New Patient This patient is new to me today: No - Critical Care Critical Care patient: No
[2017-12-05] MEDS: OSELTAMIVIR PHOSPHATE 30 MG CAPSULE PO SCH ×2 (16:56→21:42)
[2017-12-05] MEDS ORDERED: INSULIN (NOVOLOG) ASPART 100 UNITS/ML 10ML VIAL ONE (21:27)
[2017-12-05] MEDS ORDERED: INSULIN DETEMIR 100 UNITS/ML MDV SQ ONE (21:27)
[2017-12-05] MEDS: guaiFENesin/D-M SUGAR-FREE/ACLHOL-FREE 118 ML BOTTLE PO PRN (21:40)
[2017-12-05] MEDS: LIDOCAINE PATCH REMOVAL MC SCH (21:42)
[2017-12-06] MEDS: INSULIN SLIDING SCALE (NOVOLOG) 1 VIAL SQ SCH ×4 (06:56→22:21)
[2017-12-06] MEDS: GEMFIBROZIL 600 MG TABLET (FP) PO SCH ×2 (06:56→16:50)
[2017-12-06] MEDS: INSULIN DETEMIR 100 UNITS/ML MDV SQ SCH ×2 (06:57→22:22)
[2017-12-06] MEDS ORDERED: INSULIN DETEMIR 100 UNITS/ML MDV SQ ONE (07:05)
[2017-12-06] MEDS ORDERED: INSULIN (NOVOLOG) ASPART 100 UNITS/ML 10ML VIAL ONE (07:11)
[2017-12-06 07:54] LABS: HEMATOCRIT 36.2 % (35.4-49); HEMOGLOBIN 11.8 GM/dL (11.7-16.9); MCH 30.6 pg (25.7-33.7); MCHC 32.7 g/dl (32.0-35.9); MEAN CELL VOLUME 93.4 fl (80-96); PLATELET COUNT 343 K/MM3 (134-434); RBC 3.87 M/mm3 (4.00-5.60); RDW 13.6 % (11.9-15.9); WHITE BLOOD COUNT 5.7 K/mm3 (4.0-10.0)
[2017-12-06 08:06] LABS: INR 3.51 (0.82-1.09); PROTHROMBIN TIME (PATIENT) 39.7 SEC (9.98-11.88)
--- NOTE | 2017-12-06 08:41 | PN ---
Progress Note (short form) - Note Progress Note: Chief Complaint: Events noted, notes reviewed, continues to report persistence of left sided chest wall pain/tenderness, denies any dyspnea, reports persistent sore throat History of Present Illness: Seen and examined ion telemetry. Events noted, notes reviewed, continues to report persistence of left sided chest wall pain/tenderness, denies any dyspnea , reports persistent sore throat As outlined it is unclear if the patient was compliant with Eliquis therapy administration (would not consider him Eliquis failure unless it is verified) Echocardiography dated 11/30/2017 revealed normal LV size and function, bi- atrial dilatation, with mild MR Echocardiography dated 12/21/2015 normal LV size and function, with mild TR and CA MPI study dated 12/21/2015 revealed small-moderate size apical defect compatible with mild ischemia with preserved LV function Medications: Current Medications Acetaminophen (Tylenol -) 650 mg PO Q6H PRN PRN Reason: PAIN Last Admin: 12/03/17 02:57 Dose: 650 mg Amlodipine Besylate (Norvasc -) 2.5 mg PO DAILY [facility] Last Admin: 12/05/17 09:00 Dose: 2.5 mg Amoxicillin/Clavulanate Potassium (Augmentin - 875mg Tablet) 1 tab PO BID@0800, 1730 [facility] Last Admin: 12/05/17 16:56 Dose: 1 tab Aspirin (Asa -) 81 mg PO DAILY [facility] Last Admin: 12/05/17 09:00 Dose: 81 mg Benzocaine/Menthol (Cepacol Lozenge -) 1 each MM PRN PRN PRN Reason: SORE THROAT Last Admin: 12/04/17 10:59 Dose: 1 each Gemfibrozil (Lopid -) 600 mg PO BID@0700,1630 [facility] Last Admin: 12/06/17 06:56 Dose: 600 mg Guaifenesin (Diabetic Tussin Dm -) 10 ml PO Q6H PRN PRN Reason: COUGH Last Admin: 12/05/17 21:40 Dose: 10 ml Insulin Aspart (Novolog Vial Sliding Scale -) 0 vial SQ ACHS [facility] PRN Reason: Protocol Last Admin: 12/06/17 06:56 Dose: 2 units Insulin Detemir (Levemir Vial) 20 units SQ BID@0700,2200 [facility] Last Admin: 12/06/17 06:57 Dose: 20 units Isosorbide Mononitrate (Imdur -) 30 mg PO DAILY [facility] Last Admin: 12/05/17 09:01 Dose: 30 mg Lidocaine (Lidoderm Patch -) 1 patch TP DAILY [facility] Last Admin: 12/05/17 09:01 Dose: 1 patch Losartan Potassium (Cozaar -) 50 mg PO DAILY [facility] Last Admin: 12/05/17 09:00 Dose: 50 mg Magnesium Oxide (Mag-Ox -) 400 mg PO BID [facility] Last Admin: 12/05/17 21:41 Dose: 400 mg Methyl Salicylate (Ronnie-Myers -) 1 applic TP BID [facility] Last Admin: 12/05/17 21:39 Dose: 1 applic Metoprolol Tartrate (Lopressor -) 50 mg PO BID [facility] Last Admin: 12/05/17 21:37 Dose: Not Given Miscellaneous (Lidoderm Patch Removal) 1 each MC DAILY@2200 [facility] Last Admin: 12/05/17 21:42 Dose: 1 each Nitroglycerin (Nitrostat -) 0.4 mg SL PRN PRN PRN Reason: FOR CHEST PAIN Last Admin: 12/02/17 17:28 Dose: 0.4 mg Oseltamivir Phosphate (Tamiflu -) 30 mg PO BID [facility] Stop: 12/08/17 09:59 Last Admin: 12/05/17 21:42 Dose: 30 mg Ranitidine HCl (Zantac -) 150 mg PO DAILY [facility] Last Admin: 12/05/17 09:00 Dose: 150 mg Ranolazine (Ranexa -) 500 mg PO BID [facility] Last Admin: 12/05/17 21:41 Dose: 500 mg Tamsulosin HCl (Flomax -) 0.8 mg PO DAILY@0830 [facility] Last Admin: 12/05/17 08:55 Dose: 0.8 mg Warfarin Sodium (Coumadin -) 7.5 mg PO DAILY@1800 [facility] Last Admin: 12/04/17 17:33 Dose: 7.5 mg Review of Systems Cardiovascular: As noted above Respiratory: denies: denies: Cough or Sputum Production Gastrointestinal: denies: Nausea, Vomiting, Diarrhea, Constipation or Abdominal Discomfort Musculoskeletal: No Symptoms Reported Endocrine: No Symptoms Reported Vital Signs: Last Vital Signs Temp Pulse Resp BP Pulse Ox 97.6 F 58 L 18 126/48 98 12/06/17 06:00 12/06/17 06:00 12/06/17 06:00 12/06/17 06:00 12/05/17 21:00 Intake & Output 12/03/17 12/04/17 12/05/17 12/06/17 23:59 23:59 23:59 23:59 Intake Total 199 687 4831 120 Output Total 400 Balance 400 -50 1620 120 Constitutional: No Distress, Calm Neck: Supple Negative JVD Respiratory: Clear to A&P Bilaterally Cardiovascular: S1 S2 Regular rate Rhythm Grade 1/6 SM Gastrointestinal: Soft Benign Normal Bowel Sounds Ext: No Edema Labs: CBC, BMP 12/06/17 06:15 BMP from this AM pending INR, PTT INR 3.51 (0.82-1.09) H 12/06/17 06:15 Assessment/Plan ASSESSMENT: 1. Acute right cerebal embolic CVA in context of atrial fibrillation despite Eliquis therapy, as outlined above unclear if Eliquis failure, on Coumadin, supra-therapeutic INR 2. Paroxysmal atrial fibrillation [id number] score of 6 was on NOAC's - question noncompliance vs. breakthrough neurologic event (NOAC failure) 3. CAD post multi-vessel PCI stent angina pectoris, with evidence of demand ischemic injury, stable on medical therapy 4. Diastolic LV dysfunction with chronic class I NYHA classification LV failure , compensated/euvolemic 5. HTN 6. DM 7. Hyperlipidemia 8. Influenza 9. History of KATJA 10. Chronic kidney disease 11. History of obstructive uropathy related to BPH with uro-sepsis, hematuria resolved 12. History of nephrolithiasis 13. Anemia PLAN: 1. Continue Lopressor, hemodynamics permitting 2. Continue Amlodipine, hemodynamics permitting 3. Continue Cozaar with close mentoring of renal function, hemodynamics permitting 4. Continue Imdur, hemodynamics permitting 5. Continue Ranexa 6. Continue Coumadin as per INR and ASA with caution and close monitoring of CBC maintaining Hg equal or > 8.0, hold todays dose of Coumadin martin Tapia M.D.
[2017-12-06 08:43] LABS: CALCIUM 8.7 mg/dL (8.5-10.1); CHLORIDE 103 mmol/L (98-107); POTASSIUM 4.6 mmol/L (3.5-5.1); SODIUM 137 mmol/L (136-145)
[2017-12-06 08:47] LABS: ANION GAP 10 (8-16); BLOOD UREA NITROGEN 36 mg/dL (7-18); CO2 24 mmol/L (21-32); CREATININE 1.8 mg/dL (0.7-1.3); GLUCOSE,RANDOM 132 mg/dL (74-106)
--- NOTE | 2017-12-06 08:53 | PN ---
Progress Note (short form) - Note Progress Note: Subjective: The patient was seen and examined at the bedside, he reports feeling better today Current Medications Generic Name Dose Route Start Last Admin Trade Name Freq PRN Reason Stop Dose Admin Acetaminophen 650 mg 11/28/17 20:25 12/03/17 02:57 Tylenol - PO 650 mg Q6H PRN Administration PAIN Amlodipine Besylate 2.5 mg 11/29/17 10:00 12/05/17 09:00 Norvasc - PO 2.5 mg DAILY LONNIE Administration Amoxicillin/Clavulanate Potassium 1 tab 11/30/17 17:30 12/05/17 16:56 Augmentin - 875mg Tablet PO 1 tab BID@0800,1730 LONNIE Administration Aspirin 81 mg 11/30/17 10:00 12/05/17 09:00 Asa - PO 81 mg DAILY LONNIE Administration Benzocaine/Menthol 1 each 12/02/17 08:46 12/04/17 10:59 Cepacol Lozenge - MM 1 each PRN PRN Administration SORE THROAT Gemfibrozil 600 mg 11/29/17 16:30 12/06/17 06:56 Lopid - PO 600 mg BID@0700,1630 LONNIE Administration Guaifenesin 10 ml 12/02/17 09:53 12/05/17 21:40 Diabetic Tussin Dm - PO 10 ml Q6H PRN Administration COUGH Insulin Aspart 0 vial 11/28/17 13:08 12/06/17 06:56 Novolog Vial Sliding Scale - SQ 2 units ACHS LONNIE Administration Protocol Insulin Detemir 20 units 11/28/17 22:00 12/06/17 06:57 Levemir Vial SQ 20 units BID@0700,2200 LONNIE Administration Isosorbide Mononitrate 30 mg 11/29/17 10:00 12/05/17 09:01 Imdur - PO 30 mg DAILY LONNIE Administration Lidocaine 1 patch 12/03/17 12:30 12/05/17 09:01 Lidoderm Patch - TP 1 patch DAILY LONNIE Administration Losartan Potassium 50 mg 12/02/17 10:00 12/05/17 09:00 Cozaar - PO 50 mg DAILY LONNIE Administration Magnesium Oxide 400 mg 11/30/17 10:00 12/05/17 21:41 Mag-Ox - PO 400 mg BID LONNIE Administration Methyl Salicylate 1 applic 12/02/17 10:00 12/05/17 21:39 Ronnie-Myers - TP 1 applic BID LONNIE Administration Metoprolol Tartrate 50 mg 12/01/17 09:46 12/05/17 21:37 Lopressor - PO Not Given BID [facility] Miscellaneous 1 each 12/03/17 22:00 12/05/17 21:42 Lidoderm Patch Removal MC 1 each DAILY@2200 LONNIE Administration Nitroglycerin 0.4 mg 11/28/17 13:06 12/02/17 17:28 Nitrostat - SL 0.4 mg PRN PRN Administration FOR CHEST PAIN Oseltamivir Phosphate 30 mg 12/03/17 10:00 12/05/17 21:42 Tamiflu - PO 12/08/17 09:59 30 mg BID LONNIE Administration Ranitidine HCl 150 mg 11/29/17 10:00 12/05/17 09:00 Zantac - PO 150 mg DAILY LONNIE Administration Ranolazine 500 mg 11/28/17 22:00 12/05/17 21:41 Ranexa - PO 500 mg BID LONNIE Administration Tamsulosin HCl 0.8 mg 12/01/17 08:30 12/05/17 08:55 Flomax - PO 0.8 mg DAILY@0830 LONNIE Administration Warfarin Sodium 7.5 mg 12/03/17 18:00 12/04/17 17:33 Coumadin - PO 7.5 mg DAILY@1800 LONNIE Administration Objective: Vital Signs Period Temp Pulse Resp BP Sys/Crawford Pulse Ox Last 24 Hr 97.1 F-98.2 F 52-58 16-18 104-138/46-61 97-98 Physical Exam: General: NAD Lungs: CTA bilaterally Heart: RRR, S1S2 Abd: Soft, non-tender, non-distended. Normoactive bowel sounds Ext: Warm, well-perfused. 2+ DP/PT bilaterally MSK: Reproducible left chest pain CBCD WBC 5.7 K/mm3 (4.0-10.0) 12/06/17 06:15 RBC 3.87 M/mm3 (4.00-5.60) L 12/06/17 06:15 Hgb 11.8 GM/dL (11.7-16.9) 12/06/17 06:15 Hct 36.2 % (35.4-49) 12/06/17 06:15 MCV 93.4 fl (80-96) 12/06/17 06:15 MCHC 32.7 g/dl (32.0-35.9) 12/06/17 06:15 RDW 13.6 % (11.9-15.9) 12/06/17 06:15 Plt Count 343 K/MM3 (134-434) 12/06/17 06:15 MPV 9.0 fl (7.5-11.1) 12/06/17 06:15 CMP Sodium 136 mmol/L (136-145) 12/05/17 06:45 Potassium 4.4 mmol/L (3.5-5.1) 12/05/17 06:45 Chloride 104 mmol/L (98-107) 12/05/17 06:45 Carbon Dioxide 23 mmol/L (21-32) 12/05/17 06:45 Anion Gap 9 (8-16) 12/05/17 06:45 BUN 32 mg/dL (7-18) H 12/05/17 06:45 Creatinine 1.6 mg/dL (0.7-1.3) H 12/05/17 06:45 Creat Clearance w eGFR 37.17 (>60) 12/04/17 05:35 Random Glucose 105 mg/dL (74-106) D 12/05/17 06:45 Calcium 8.4 mg/dL (8.5-10.1) L 12/05/17 06:45 Total Bilirubin 0.3 mg/dL (0.2-1.0) D 12/04/17 05:35 AST 20 U/L (15-37) D 12/04/17 05:35 ALT 16 U/L (12-78) D 12/04/17 05:35 Alkaline Phosphatase 132 U/L (45-117) H 12/04/17 05:35 Total Protein 7.6 g/dl (6.4-8.2) 12/04/17 05:35 Albumin 3.4 g/dl (3.4-5.0) 12/04/17 05:35 CARDIAC ENZYMES Creatine Kinase 85 IU/L (39-308) 12/03/17 07:25 Troponin I 0.26 ng/ml (0.00-0.05) H 12/03/17 07:25 Microbiology 12/02/17 20:30 Blood - Peripheral Venous Blood Culture - Preliminary NO GROWTH OBTAINED AFTER 72 HOURS, INCUBATION TO CONTINUE FOR 2 DAYS. 12/02/17 19:10 Blood - Peripheral Venous Blood Culture - Preliminary NO GROWTH OBTAINED AFTER 72 HOURS, INCUBATION TO CONTINUE FOR 2 DAYS. 12/02/17 13:20 Rectal Swab VRE Culture - Preliminary Group D Strep Or Entero Coccus 12/02/17 Unknown Urine - Urine Clean Catch Urine Culture - Final NO GROWTH OBTAINED 12/02/17 11:30 Nasopharyngeal Swab Influenza Types A,B Antigen (GENA) - Final 12/02/17 11:30 Nasopharyngeal Swab - Final 11/28/17 15:00 Urine - Urine Clean Catch Urine Culture - Final NO GROWTH OBTAINED Assessment: This is a 72 year old male with PMHx of HTN, hyperlipidemia, IDDM, a.fib (on Eliquis), CAD s/p stenting 5 years ago, TIAs, short term memory deficits, BPH, CKD stage 3, renal calculi, chronic hip pain, diverticulosis, who presented to the ED with chest pain and an episode of right sided facial droop and weakness which has since resolved. Plan: 1) Febrile - Afebrile overnight - Influenza A&B negative however high suspicion for influenza, continue Tamiflu - VRE culture pending organism - Appreciate ID consult 2) Acute CVA - MRI brain with scattered, acute cortical infarcts involving the right frontal , right parietal and right parieto-occipital lobe suggesting a central embolic phenomenon - INR supratherapeutic, hold Coumadin tonight and recheck INR tomorrow morning - Allergy to statins - Continue ASA - Continue Lopid - Continue Welchol - Appreciate neurology consult 3) Atypical chest pain - Costochondritis. reproducible, continue lidocaine patch - Elevated trop, peaked at 0.32 - Continue ASA - Appreciate cardiology consult 4) Right ear pain - Being treated for otitis media - Continue Augmentin - Appreciate ENT consult, outpatient follow-up for audiogram 5) LORY on CKD - Improving - Kidney/bladder ultrasound: morphologically normal kidneys and urinary bladder with no evidence of hydronephrosis or acute pathology, large post void residual. Markedly enlarged prostate gland - Appreciate nephrology consult 6) S/p fall - Patient reports no head trauma however has short term memory deficits - Head CT and MRI with no intracranial hemorrhage 7) CAD s/p cardiac stents - 11/16/17 Echo: LV borderline dilated, LV function normal; RV normal; BLAE; mild MR; trace to mild TR; trace AI - Hold Losartan 2/2 LORY - Continue Ranexa 8) Paroxysmal A.fib - INR conitnues to be supratherapeutic on Comadin, hold tonights dose of Coumadin and recheck levels in the morning 9) IDDM - Continue Levemir - BGM ACHS - ISS ACHS 10) F/E/N: - Diabetic, low sodium diet - Monitor electrolytes 11) Prophylaxis: - INR supratherapeutic, Coumadin on hold - PT daily 12) Dispo: - Requires continued inpatient care CODE STATUS: FULL CODE Visit type - Emergency Visit Emergency Visit: Yes ED Registration Date: 11/28/17 Care time: The patient presented to the Emergency Department on the above date and was hospitalized for further evaluation of their emergent condition. - New Patient This patient is new to me today: No - Critical Care Critical Care patient: No
[2017-12-06] MEDS ORDERED: PT OWN MED DRAWER 7, Y5N ONE ×3 (09:47→22:16)
[2017-12-06] MEDS: METHYL SALICYLATE/MENTHOL OINT 30 GM TUBE TP SCH ×2 (10:04→22:25)
[2017-12-06] MEDS: RANOLAZINE E.R. 500 MG TABLET (FP) PO SCH ×2 (10:05→22:21)
[2017-12-06] MEDS: ISOSORBIDE MONONITRATE 30 MG TAB.SR.24H (FP) PO SCH (10:05)
[2017-12-06] MEDS: METOPROLOL TARTRATE 50 MG TABLET (FP) PO SCH ×2 (10:05→22:21)
[2017-12-06] MEDS: LOSARTAN POTASSIUM 50 MG TABLET (FP) PO SCH (10:05)
[2017-12-06] MEDS: AMOX TR/POT CLAV 875MG/125MG TABLETS (FP) PO SCH ×2 (10:06→16:50)
[2017-12-06] MEDS: ASPIRIN 81 MG CHEWABLE TABLETS PO SCH (10:06)
[2017-12-06] MEDS: TAMSULOSIN HCL 0.4 MG CAP.ER.24H (FP) PO SCH (10:06)
[2017-12-06] MEDS: RANITIDINE HCL 150 MG TABLET (FP) PO SCH (10:06)
[2017-12-06] MEDS: LIDOCAINE 5% TOPICAL PATCH TP SCH (10:06)
[2017-12-06] MEDS: amLODIPine BESYLATE 2.5 MG TABLET (FP) PO SCH (10:07)
[2017-12-06] MEDS: MAGNESIUM OXIDE 400 MG TABLET (FP) PO SCH ×2 (10:07→22:21)
[2017-12-06] MEDS: OSELTAMIVIR PHOSPHATE 30 MG CAPSULE PO SCH ×2 (10:08→22:21)
[2017-12-06] MEDS ORDERED: SODIUM CHLORIDE NASAL SPRAY 44 ML BOTTLE NS PRN (18:02)
[2017-12-06] MEDS: LIDOCAINE PATCH REMOVAL MC SCH (22:25)
[2017-12-07] MEDS ORDERED: oxyCODONE HCL 5 MG TABLET PO ONE ×2 (04:34→08:45)
--- NOTE | 2017-12-07 04:36 | HOSP ---
Subjective - Review of Symptoms Events since last encounter: Hospitalist Encounter Notified by RN the patient reports R- ear pain Arrived to [facility] Physical Examination Vital Signs: Vital Signs Temperature 97.5 F L 12/07/17 02:00 Pulse Rate 56 L 12/07/17 02:00 Respiratory Rate 18 12/07/17 02:00 Blood Pressure 117/61 12/07/17 02:00 O2 Sat by Pulse Oximetry (%) 94 L 12/06/17 21:00 Labs: CBC, BMP 12/06/17 06:15 12/06/17 06:15
[2017-12-07] MEDS: GEMFIBROZIL 600 MG TABLET (FP) PO SCH ×2 (06:49→17:04)
[2017-12-07] MEDS: INSULIN DETEMIR 100 UNITS/ML MDV SQ SCH (06:49)
[2017-12-07 06:54] LABS: INR 1.98 (0.82-1.09); PROTHROMBIN TIME (PATIENT) 22.4 SEC (9.98-11.88)
[2017-12-07 06:57] LABS: ANION GAP 10 (8-16); BLOOD UREA NITROGEN 35 mg/dL (7-18); CALCIUM 8.4 mg/dL (8.5-10.1); CHLORIDE 102 mmol/L (98-107); CO2 23 mmol/L (21-32); CREATININE 1.8 mg/dL (0.7-1.3); GLUCOSE,RANDOM 155 mg/dL (74-106); POTASSIUM 4.7 mmol/L (3.5-5.1); SODIUM 135 mmol/L (136-145)
[2017-12-07] MEDS: INSULIN SLIDING SCALE (NOVOLOG) 1 VIAL SQ SCH ×3 (06:59→17:00)
[2017-12-07] MEDS: AMOX TR/POT CLAV 875MG/125MG TABLETS (FP) PO SCH ×2 (08:05→17:04)
[2017-12-07] MEDS: TAMSULOSIN HCL 0.4 MG CAP.ER.24H (FP) PO SCH (08:05)
[2017-12-07] MEDS: ACETAMINOPHEN 325 MG TABLET (FP) PO PRN (09:02)
[2017-12-07] MEDS: LIDOCAINE 5% TOPICAL PATCH TP SCH (09:05)
[2017-12-07] MEDS: METOPROLOL TARTRATE 50 MG TABLET (FP) PO SCH (09:05)
[2017-12-07] MEDS: amLODIPine BESYLATE 2.5 MG TABLET (FP) PO SCH (09:05)
[2017-12-07] MEDS: LOSARTAN POTASSIUM 50 MG TABLET (FP) PO SCH (09:05)
[2017-12-07] MEDS: OSELTAMIVIR PHOSPHATE 30 MG CAPSULE PO SCH (09:05)
[2017-12-07] MEDS: MAGNESIUM OXIDE 400 MG TABLET (FP) PO SCH (09:06)
[2017-12-07] MEDS: RANOLAZINE E.R. 500 MG TABLET (FP) PO SCH (09:06)
[2017-12-07] MEDS: ASPIRIN 81 MG CHEWABLE TABLETS PO SCH (09:06)
[2017-12-07] MEDS: RANITIDINE HCL 150 MG TABLET (FP) PO SCH (09:06)
[2017-12-07] MEDS: ISOSORBIDE MONONITRATE 30 MG TAB.SR.24H (FP) PO SCH (09:06)
[2017-12-07] MEDS: METHYL SALICYLATE/MENTHOL OINT 30 GM TUBE TP SCH (09:06)
--- NOTE | 2017-12-07 10:33 | PN ---
Progress Note, Physician History of Present Illness: No further chest discomfort, right facial droop improving, reporting right earache. - Current Medication List Current Medications: Active Medications Acetaminophen (Tylenol -) 650 mg PO Q6H PRN PRN Reason: PAIN Last Admin: 12/07/17 09:02 Dose: 650 mg Amlodipine Besylate (Norvasc -) 2.5 mg PO DAILY [facility] Last Admin: 12/07/17 09:05 Dose: 2.5 mg Amoxicillin/Clavulanate Potassium (Augmentin - 875mg Tablet) 1 tab PO BID@0800, 1730 [facility] Last Admin: 12/07/17 08:05 Dose: 1 tab Aspirin (Asa -) 81 mg PO DAILY [facility] Last Admin: 12/07/17 09:06 Dose: 81 mg Benzocaine/Menthol (Cepacol Lozenge -) 1 each MM PRN PRN PRN Reason: SORE THROAT Last Admin: 12/04/17 10:59 Dose: 1 each Gemfibrozil (Lopid -) 600 mg PO BID@0700,1630 [facility] Last Admin: 12/07/17 06:49 Dose: 600 mg Guaifenesin (Diabetic Tussin Dm -) 10 ml PO Q6H PRN PRN Reason: COUGH Last Admin: 12/05/17 21:40 Dose: 10 ml Insulin Aspart (Novolog Vial Sliding Scale -) 0 vial SQ ACHS [facility] PRN Reason: Protocol Last Admin: 12/07/17 06:59 Dose: Not Given Insulin Detemir (Levemir Vial) 20 units SQ BID@0700,2200 [facility] Last Admin: 12/07/17 06:49 Dose: 20 units Isosorbide Mononitrate (Imdur -) 30 mg PO DAILY [facility] Last Admin: 12/07/17 09:06 Dose: 30 mg Lidocaine (Lidoderm Patch -) 1 patch TP DAILY [facility] Last Admin: 12/07/17 09:05 Dose: 1 patch Losartan Potassium (Cozaar -) 50 mg PO DAILY [facility] Last Admin: 12/07/17 09:05 Dose: 50 mg Magnesium Oxide (Mag-Ox -) 400 mg PO BID [facility] Last Admin: 12/07/17 09:06 Dose: 400 mg Methyl Salicylate (Ronnie-Myers -) 1 applic TP BID [facility] Last Admin: 12/07/17 09:06 Dose: 1 applic Metoprolol Tartrate (Lopressor -) 50 mg PO BID [facility] Last Admin: 12/07/17 09:05 Dose: 50 mg Miscellaneous (Lidoderm Patch Removal) 1 each MC DAILY@2200 [facility] Last Admin: 12/06/17 22:25 Dose: 1 each Nitroglycerin (Nitrostat -) 0.4 mg SL PRN PRN PRN Reason: FOR CHEST PAIN Last Admin: 12/02/17 17:28 Dose: 0.4 mg Oseltamivir Phosphate (Tamiflu -) 30 mg PO BID [facility] Stop: 12/08/17 09:59 Last Admin: 12/07/17 09:05 Dose: 30 mg Ranitidine HCl (Zantac -) 150 mg PO DAILY [facility] Last Admin: 12/07/17 09:06 Dose: 150 mg Ranolazine (Ranexa -) 500 mg PO BID [facility] Last Admin: 12/07/17 09:06 Dose: 500 mg Sodium Chloride ([place] Nasal [place] -) 2 spray NS Q12H PRN PRN Reason: NASAL CONGESTION Tamsulosin HCl (Flomax -) 0.8 mg PO DAILY@0830 [facility] Last Admin: 12/07/17 08:05 Dose: 0.8 mg Warfarin Sodium (Coumadin -) 7.5 mg PO DAILY@1800 [facility] Last Admin: 12/04/17 17:33 Dose: 7.5 mg - Objective Vital Signs: Vital Signs Temperature 98.1 F 12/07/17 09:11 Pulse Rate 55 L 12/07/17 09:11 Respiratory Rate 18 12/07/17 09:11 Blood Pressure 132/59 12/07/17 09:11 O2 Sat by Pulse Oximetry (%) 94 L 12/06/17 21:00 Constitutional: Yes: No Distress, Calm Neck: Yes: Supple Cardiovascular: Yes: Regular Rate and Rhythm Respiratory: Yes: Regular, Diminished Gastrointestinal: Yes: Normal Bowel Sounds, Soft, Abdomen, Obese Edema: No Labs: CBC, BMP 12/06/17 06:15 12/07/17 05:35 INR, PTT INR 1.98 (0.82-1.09) H D 12/07/17 05:35 - ....Imaging EKG: Report Reviewed (Tele: SR) Problem List - Problems (1) LORY (acute kidney injury) Code(s): N17.9 - ACUTE KIDNEY FAILURE, UNSPECIFIED (2) Acute ischemic stroke Code(s): I63.9 - CEREBRAL INFARCTION, UNSPECIFIED (3) Afib Code(s): I48.91 - UNSPECIFIED ATRIAL FIBRILLATION Qualifiers: Atrial fibrillation type: paroxysmal Qualified Code(s): I48.0 - Paroxysmal atrial fibrillation (4) CAD (coronary artery disease) Code(s): I25.10 - ATHSCL HEART DISEASE OF [place] CORONARY ARTERY W/O ANG PCTRS Qualifiers: Coronary Disease-Associated Artery/Lesion type: [place] artery [place] vs. 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 insulin use: without chcf use Qualified Code(s): E11.9 - Type 2 diabetes mellitus without complications (7) HTN (hypertension) Code(s): I10 - ESSENTIAL (PRIMARY) HYPERTENSION Qualifiers: Hypertension type: essential hypertension Qualified Code(s): I10 - Essential (primary) hypertension (8) History of cardiac radiofrequency ablation (RFA) Code(s): Z98.89 - OTHER SPECIFIED POSTPROCEDURAL STATES * DO NOT USE * (9) Hyperlipidemia Code(s): E78.5 - HYPERLIPIDEMIA, UNSPECIFIED Qualifiers: Hyperlipidemia type: mixed hyperlipidemia Qualified Code(s): E78.2 - Mixed hyperlipidemia (10) Obstructive sleep apnea of adult Code(s): G47.33 - OBSTRUCTIVE SLEEP APNEA (ADULT) (PEDIATRIC) (11) Paroxysmal a-fib Code(s): I48.0 - PAROXYSMAL ATRIAL FIBRILLATION (12) S/P coronary artery stent placement Code(s): Z95.5 - PRESENCE OF CORONARY ANGIOPLASTY IMPLANT AND GRAFT (13) UTI (urinary tract infection) Code(s): N39.0 - URINARY TRACT INFECTION, SITE NOT SPECIFIED Qualifiers: Urinary tract infection type: site unspecified Hematuria presence: without hematuria Qualified Code(s): N39.0 - Urinary tract infection, site not specified Assessment/Plan Echocardiography yesterday revealed normal LV size and function, bi-atrial dilatation, with mild MR Echocardiography dated 12/21/2015 normal LV size and function, with mild TR and MD MPI study dated 12/21/2015 revealed small-moderate size apical defect compatible with mild ischemia with preserved LV function 1. Acute right cerebal embolic CVA in context of atrial fibrillation despite Eliquis therapy now with therapeutic INR 2. Paroxysmal atrial fibrillation [id number] score of 6 on NOAC's - ? noncompliance vs. breakthrough neurologic event (NOAC failure) 3. CAD post multi-vessel PCI stent angina pectoris, with evidence of demand ischemic injury, stable on medical therapy 4. Diastolic LV dysfunction with chronic class I NYHA classification LV failure , compensated/euvolemic 5. HTN 6. DM 7. Hyperlipidemia 8. History of KATJA 9. Acute on chronic kidney disease due to impaired hemodynamics impoved 10. History of obstructive uropathy related to BPH with uro-sepsis, hematuria resolved 11. Anemia 12. Right otalgia referale to URI PLAN: 1. Continue Lopressor 50 bid as hemodynamics permit 2. Continue Amlodipine 2.5 qd 3. Continue Cozaar 50 qd with close mentoring of renal function, hemodynamics permitting 4. Continue Imdur 30 qd 5. Continue Ranexa 500 bid 6. Continue Coumadin per INR 2-3 and ASA 81 qd with caution and close monitoring of CBC maintaining Hg equal or > 8.0 7. Continue Lopid 600 bid and Welchol 625 bid 8. PT. d/c planning
--- NOTE | 2017-12-07 12:36 | DS ---
Physical Examination Vital Signs: Vital Signs Temperature 98.1 F 12/07/17 09:11 Pulse Rate 55 L 12/07/17 09:11 Respiratory Rate 18 12/07/17 09:11 Blood Pressure 132/59 12/07/17 09:11 O2 Sat by Pulse Oximetry (%) 94 L 12/06/17 21:00 Labs: CBC, BMP 12/06/17 06:15 12/07/17 05:35 Discharge Summary Reason For Visit: ELEVATED TROPONIN I LEVEL, TRANSIENT CERBRAL ISCHE Current Active Problems LORY (acute kidney injury) (Acute) CVA (cerebral vascular accident) (Acute) Chronic rhinitis (Acute) Ear pain, right (Acute) TIA (transient ischemic attack) (Acute) Troponin I above reference range (Acute) Condition: Improved - Instructions Diet, Activity, Other Instructions: Please return to the ED with new, persistent, or worsening symptoms. Please follow-up with providers as indicated. Continue taking Coumadin 7.5mg by mouth at 6pm daily. You MUST follow-up with your primary care provider as scheduled on 12/10/17 at 2pm to have your INR checked. Referrals: Loni Reyes [Primary Care Provider] - (Please follow-up with Dr. Reyes (your primary care provider) on Thus12/10/17 at 2pm to have your INR checked) Daniel Metzger MD [Staff Physician] - (Please follow-up with Dr. Metzger (ear, nose , and throat) within 1 week for an outpatient audiogram) Loulou Tapia MD [Staff Physician] - 1 Week Josh Hunt DO [Staff Physician] - 1 Week Armando Sparks MD [Staff Physician] - (Please follow-up with nephrology within 1 week to have your creatinine rechecked) Disposition: VNS/HOME HEALTH CARE - Home Medications Comprehensive Discharge Medication List: Ambulatory Orders Tamsulosin HCl [Flomax -] 0.4 mg PO DAILY #10 capsule 06/01/16 Gemfibrozil [Lopid] 600 mg PO BID 10/14/16 Losartan Potassium [Cozaar -] 50 mg PO DAILY 10/14/16 Nitroglycerin [Nitrostat] 0.4 mg SL PRN PRN 10/14/16 Ranolazine [Ranexa -] 500 mg PO BID tab 11/01/16 Colesevelam HCl [Welchol (Nf)] 625 mg PO BID #30 tablet 11/20/16 Ranitidine [Zantac -] 150 mg PO DAILY #20 tablet 11/20/16 Amlodipine Besylate [Norvasc -] 2.5 mg PO DAILY #30 tablet 02/10/17 Isosorbide Mononitrate [Imdur -] 30 mg PO DAILY #30 tab 02/10/17 Insulin (Levemir) [Levemir Vial] 20 units SQ BID 11/12/17 Acetaminophen [Tylenol .Regular Strength -] 650 mg PO Q6H PRN tablet 12/07/17 Aspirin [ASA -] 81 mg PO DAILY tab.chew 12/07/17 Lidocaine 5% Patch [Lidoderm -] 1 patch TP DAILY #30 patch 12/07/17 Lidocaine Patch Removal [Lidoderm Patch Removal] 1 each MC DAILY@2200 #1 each Metoprolol Tartrate [Lopressor -] 50 mg PO BID #60 tablet 12/07/17 Oseltamivir Phosphate [Tamiflu] 75 mg PO BID #3 capsule 12/07/17 Sodium Chloride Nasal [place] [[place] Nasal [place] -] 2 spray NS Q12H PRN #1 spray 12/07/17 Warfarin Na [Coumadin -] 7.5 mg PO DAILY@1800 #30 tablet 12/07/17
--- NOTE | 2017-12-07 13:22 | PN ---
Progress Note (short form) - Note Progress Note: ENT pt complains of continued right ear pain worse with swallowing also with jaw opening Exam: NAD external ear normal canal, sl wax, no obvious infection no pain on tragal pressure TM no erythema Jaw+ deviates to right on opening mouth no lesions neck no mass or node voice clear and strong Impression: right ear pain TMJ dysfunction cough/pharyngitis Recommend: eardrops ordered to treat ?early otitis externa to office after discharge for follow-up and audiogram soft diet, dental evaluation for TMJ dysfunction Daniel Metzger MD FACS Problem List - Problems (1) Ear pain, right Code(s): H92.01 - OTALGIA, RIGHT EAR (2) Chronic rhinitis Code(s): J31.0 - CHRONIC RHINITIS
--- NOTE | 2017-12-07 13:42 | PN ---
Progress Note (short form) - Note Progress Note: Subjective: The patient was seen and examined at the bedside, he has complaints of right ear pain and right jaw pain Current Medications Generic Name Dose Route Start Last Admin Trade Name Freq PRN Reason Stop Dose Admin Acetaminophen 650 mg 11/28/17 20:25 12/07/17 09:02 Tylenol - PO 650 mg Q6H PRN Administration PAIN Amlodipine Besylate 2.5 mg 11/29/17 10:00 12/07/17 09:05 Norvasc - PO 2.5 mg DAILY [facility]ON[facility] Administration Amoxicillin/Clavulanate Potassium 1 tab 11/30/17 17:30 12/07/17 08:05 Augmentin - 875mg Tablet PO 1 tab BID@0800,1730 [facility]ON[facility]IE Administration Aspirin 81 mg 11/30/17 10:00 12/07/17 09:06 Asa - PO 81 mg DAILY [facility] Administration Benzocaine/Menthol 1 each 12/02/17 08:46 12/04/17 10:59 Cepacol Lozenge - MM 1 each PRN PRN Administration SORE THROAT Gemfibrozil 600 mg 11/29/17 16:30 12/07/17 06:49 Lopid - PO 600 mg BID@0700,1630 LONNIE Administration Guaifenesin 10 ml 12/02/17 09:53 12/05/17 21:40 Diabetic Tussin Dm - PO 10 ml Q6H PRN Administration COUGH Insulin Aspart 0 vial 11/28/17 13:08 12/07/17 11:43 Novolog Vial Sliding Scale - SQ 2 units ACHS LONNIE Administration Protocol Insulin Detemir 20 units 11/28/17 22:00 12/07/17 06:49 Levemir Vial SQ 20 units BID@0700,2200 [facility]ON[facility]IE Administration Isosorbide Mononitrate 30 mg 11/29/17 10:00 12/07/17 09:06 Imdur - PO 30 mg DAILY [facility] Administration Lidocaine 1 patch 12/03/17 12:30 12/07/17 09:05 Lidoderm Patch - TP 1 patch DAILY [facility] Administration Losartan Potassium 50 mg 12/02/17 10:00 12/07/17 09:05 Cozaar - PO 50 mg DAILY [facility] Administration Magnesium Oxide 400 mg 11/30/17 10:00 12/07/17 09:06 Mag-Ox - PO 400 mg BID [facility] Administration Methyl Salicylate 1 applic 12/02/17 10:00 12/07/17 09:06 Ronnie-Myers - TP 1 applic BID [facility]IE Administration Metoprolol Tartrate 50 mg 12/01/17 09:46 12/07/17 09:05 Lopressor - PO 50 mg BID [facility]IE Administration Miscellaneous 1 each 12/03/17 22:00 12/06/17 22:25 Lidoderm Patch Removal MC 1 each DAILY@2200 [facility] Administration Nitroglycerin 0.4 mg 11/28/17 13:06 12/02/17 17:28 Nitrostat - SL 0.4 mg PRN PRN Administration FOR CHEST PAIN Ofloxacin 5 drop 12/07/17 13:30 Floxin Otic (Ear) Solution - AD ONCE [facility]ONNIE Oseltamivir Phosphate 30 mg 12/03/17 10:00 12/07/17 09:05 Tamiflu - PO 12/08/17 09:59 30 mg BID [facility] Administration Ranitidine HCl 150 mg 11/29/17 10:00 12/07/17 09:06 Zantac - PO 150 mg DAILY [facility] Administration Ranolazine 500 mg 11/28/17 22:00 12/07/17 09:06 Ranexa - PO 500 mg BID [facility] Administration Sodium Chloride 2 spray 12/06/17 18:02 [place] Nasal [place] - NS Q12H PRN NASAL CONGESTION Tamsulosin HCl 0.8 mg 12/01/17 08:30 12/07/17 08:05 Flomax - PO 0.8 mg DAILY@0830 [facility] Administration Warfarin Sodium 7.5 mg 12/03/17 18:00 12/04/17 17:33 Coumadin - PO 7.5 mg DAILY@1800 [facility] Administration Objective: Vital Signs Period Temp Pulse Resp BP Sys/[place] Pulse Ox Last 24 Hr 97.5 F-98.1 F 52-60 18-18 100-132/42-61 94-95 Physical Exam: General: NAD Lungs: CTA bilaterally Heart: RRR, S1S2 Abd: Soft, non-tender, non-distended. Normoactive bowel sounds Ext: Warm, well-perfused. 2+ DP/PT bilaterally MSK: Reproducible left chest pain CBCD WBC 5.7 K/mm3 (4.0-10.0) 12/06/17 06:15 RBC 3.87 M/mm3 (4.00-5.60) L 12/06/17 06:15 Hgb 11.8 GM/dL (11.7-16.9) 12/06/17 06:15 Hct 36.2 % (35.4-49) 12/06/17 06:15 MCV 93.4 fl (80-96) 12/06/17 06:15 MCHC 32.7 g/dl (32.0-35.9) 12/06/17 06:15 RDW 13.6 % (11.9-15.9) 12/06/17 06:15 Plt Count 343 K/MM3 (134-434) 12/06/17 06:15 MPV 9.0 fl (7.5-11.1) 12/06/17 06:15 CMP Sodium 135 mmol/L (136-145) L 12/07/17 05:35 Potassium 4.7 mmol/L (3.5-5.1) 12/07/17 05:35 Chloride 102 mmol/L (98-107) 12/07/17 05:35 Carbon Dioxide 23 mmol/L (21-32) 12/07/17 05:35 Anion Gap 10 (8-16) 12/07/17 05:35 BUN 35 mg/dL (7-18) H 12/07/17 05:35 Creatinine 1.8 mg/dL (0.7-1.3) H 12/07/17 05:35 Creat Clearance w eGFR 37.17 (>60) 12/04/17 05:35 Random Glucose 155 mg/dL (74-106) H 12/07/17 05:35 Calcium 8.4 mg/dL (8.5-10.1) L 12/07/17 05:35 Total Bilirubin 0.3 mg/dL (0.2-1.0) D 12/04/17 05:35 AST 20 U/L (15-37) D 12/04/17 05:35 ALT 16 U/L (12-78) D 12/04/17 05:35 Alkaline Phosphatase 132 U/L (45-117) H 12/04/17 05:35 Total Protein 7.6 g/dl (6.4-8.2) 12/04/17 05:35 Albumin 3.4 g/dl (3.4-5.0) 12/04/17 05:35 CARDIAC ENZYMES Creatine Kinase 85 IU/L (39-308) 12/03/17 07:25 Troponin I 0.26 ng/ml (0.00-0.05) H 12/03/17 07:25 Microbiology 12/02/17 20:30 Blood - Peripheral Venous Blood Culture - Preliminary NO GROWTH OBTAINED AFTER 96 HOURS, INCUBATION TO CONTINUE FOR 1 DAYS. 12/02/17 19:10 Blood - Peripheral Venous Blood Culture - Preliminary NO GROWTH OBTAINED AFTER 96 HOURS, INCUBATION TO CONTINUE FOR 1 DAYS. 12/02/17 13:20 Rectal Swab VRE Culture - Final Vr Ec Faecalis 12/02/17 Unknown Urine - Urine Clean Catch Urine Culture - Final NO GROWTH OBTAINED 12/02/17 11:30 Nasopharyngeal Swab Influenza Types A,B Antigen (GENA) - Final 12/02/17 11:30 Nasopharyngeal Swab - Final 11/28/17 15:00 Urine - Urine Clean Catch Urine Culture - Final NO GROWTH OBTAINED Assessment: This is a 72 year old male with PMHx of HTN, hyperlipidemia, IDDM, a.fib (on Eliquis), CAD s/p stenting 5 years ago, TIAs, short term memory deficits, BPH, CKD stage 3, renal calculi, chronic hip pain, diverticulosis, who presented to the ED with chest pain and an episode of right sided facial droop and weakness which has since resolved. Plan: 1) Fever - Resolved - Influenza A&B negative however high suspicion for influenza, continue Tamiflu - VRE culture pending organism - Appreciate ID consult 2) Acute CVA - MRI brain with scattered, acute cortical infarcts involving the right frontal , right parietal and right parieto-occipital lobe suggesting a central embolic phenomenon - Resume Coumadin tonight - Allergy to statins - Continue ASA - Continue Lopid - Continue Welchol - Appreciate neurology consult 3) Atypical chest pain - Costochondritis. reproducible, continue lidocaine patch - Elevated trop, peaked at 0.32 - Continue ASA - Appreciate cardiology consult 4) Right ear pain - Still with complaints - F/u CT neck - Ear drops ordered by ENT - Being treated for otitis media - Augmentin completed - Appreciate ENT consult, outpatient follow-up for audiogram 5) LORY on CKD - Improving - Kidney/bladder ultrasound: morphologically normal kidneys and urinary bladder with no evidence of hydronephrosis or acute pathology, large post void residual. Markedly enlarged prostate gland - Appreciate nephrology consult 6) S/p fall - Patient reports no head trauma however has short term memory deficits - Head CT and MRI with no intracranial hemorrhage 7) CAD s/p cardiac stents - 11/16/17 Echo: LV borderline dilated, LV function normal; RV normal; BLAE; mild MR; trace to mild TR; trace AI - Hold Losartan 2/2 LORY - Continue Ranexa 8) Paroxysmal A.fib - Resume Coumadin tonight 9) IDDM - Continue Levemir - BGM ACHS - ISS ACHS 10) F/E/N: - Diabetic, low sodium diet - Monitor electrolytes 11) Prophylaxis: - Resume Coumadin tonight - PT daily 12) Dispo: - Requires continued inpatient care CODE STATUS: FULL CODE Visit type - Emergency Visit Emergency Visit: Yes ED Registration Date: 11/28/17 Care time: The patient presented to the Emergency Department on the above date and was hospitalized for further evaluation of their emergent condition. - New Patient This patient is new to me today: No - Critical Care Critical Care patient: No
--- NOTE | 2017-12-07 13:55 | PN ---
Progress Note, Physician History of Present Illness: C/O R neck pain. Points to area of SCM muscle just below the angle of the jaw. No c/o R ear pain, drainage, or decreased hearing No urinary tract complaints No fever/ chills WBC WNL Blood, urine c/s no growth CXR no infiltrate - Current Medication List Current Medications: Active Medications Acetaminophen (Tylenol -) 650 mg PO Q6H PRN PRN Reason: PAIN Last Admin: 12/07/17 09:02 Dose: 650 mg Amlodipine Besylate (Norvasc -) 2.5 mg PO DAILY [facility] Last Admin: 12/07/17 09:05 Dose: 2.5 mg Amoxicillin/Clavulanate Potassium (Augmentin - 875mg Tablet) 1 tab PO BID@0800, 1730 [facility] Last Admin: 12/07/17 08:05 Dose: 1 tab Aspirin (Asa -) 81 mg PO DAILY [facility] Last Admin: 12/07/17 09:06 Dose: 81 mg Benzocaine/Menthol (Cepacol Lozenge -) 1 each MM PRN PRN PRN Reason: SORE THROAT Last Admin: 12/04/17 10:59 Dose: 1 each Gemfibrozil (Lopid -) 600 mg PO BID@0700,1630 [facility] Last Admin: 12/07/17 06:49 Dose: 600 mg Guaifenesin (Diabetic Tussin Dm -) 10 ml PO Q6H PRN PRN Reason: COUGH Last Admin: 12/05/17 21:40 Dose: 10 ml Insulin Aspart (Novolog Vial Sliding Scale -) 0 vial SQ ACHS [facility] PRN Reason: Protocol Last Admin: 12/07/17 11:43 Dose: 2 units Insulin Detemir (Levemir Vial) 20 units SQ BID@0700,2200 [facility] Last Admin: 12/07/17 06:49 Dose: 20 units Isosorbide Mononitrate (Imdur -) 30 mg PO DAILY [facility] Last Admin: 12/07/17 09:06 Dose: 30 mg Lidocaine (Lidoderm Patch -) 1 patch TP DAILY [facility] Last Admin: 12/07/17 09:05 Dose: 1 patch Losartan Potassium (Cozaar -) 50 mg PO DAILY [facility] Last Admin: 12/07/17 09:05 Dose: 50 mg Magnesium Oxide (Mag-Ox -) 400 mg PO BID [facility] Last Admin: 12/07/17 09:06 Dose: 400 mg Methyl Salicylate (Ronnie-Myers -) 1 applic TP BID [facility] Last Admin: 12/07/17 09:06 Dose: 1 applic Metoprolol Tartrate (Lopressor -) 50 mg PO BID [facility] Last Admin: 12/07/17 09:05 Dose: 50 mg Miscellaneous (Lidoderm Patch Removal) 1 each MC DAILY@2200 [facility] Last Admin: 12/06/17 22:25 Dose: 1 each Nitroglycerin (Nitrostat -) 0.4 mg SL PRN PRN PRN Reason: FOR CHEST PAIN Last Admin: 12/02/17 17:28 Dose: 0.4 mg Ofloxacin (Floxin Otic (Ear) Solution -) 5 drop AD ONCE [facility] Oseltamivir Phosphate (Tamiflu -) 30 mg PO BID [facility] Stop: 12/08/17 09:59 Last Admin: 12/07/17 09:05 Dose: 30 mg Ranitidine HCl (Zantac -) 150 mg PO DAILY [facility] Last Admin: 12/07/17 09:06 Dose: 150 mg Ranolazine (Ranexa -) 500 mg PO BID [facility] Last Admin: 12/07/17 09:06 Dose: 500 mg Sodium Chloride ([place] Nasal [place] -) 2 spray NS Q12H PRN PRN Reason: NASAL CONGESTION Tamsulosin HCl (Flomax -) 0.8 mg PO DAILY@0830 [facility] Last Admin: 12/07/17 08:05 Dose: 0.8 mg Warfarin Sodium (Coumadin -) 7.5 mg PO DAILY@1800 [facility] Last Admin: 12/04/17 17:33 Dose: 7.5 mg - Objective Vital Signs: Vital Signs Temperature 98.1 F 12/07/17 09:11 Pulse Rate 55 L 12/07/17 09:11 Respiratory Rate 18 12/07/17 09:11 Blood Pressure 132/59 12/07/17 09:11 O2 Sat by Pulse Oximetry (%) 95 12/07/17 09:00 Constitutional: Yes: No Distress Eyes: Yes: Conjunctiva Clear HENT: Yes: Other (No neck eythema. No tenderness elicited at site of pain. No swelling or palpable mass.). No: Pharyngeal Erythema, Tonsillar Exudate Neck: Yes: Supple, Other (as above) Cardiovascular: Yes: Regular Rate and Rhythm, S1, S2 Respiratory: Yes: CTA Bilaterally Gastrointestinal: Yes: Normal Bowel Sounds, Soft. No: Tenderness Labs: CBC, BMP 12/06/17 06:15 12/07/17 05:35 INR, PTT INR 1.98 (0.82-1.09) H D 12/07/17 05:35 Assessment/Plan R neck pain ? etiology R otitis media on Augmentin Azotemia- improved Continue po Augmentin. CT neck. If no acute pathology no objection to discharge and outpatient ENT follow up
[2017-12-07] MEDS ORDERED: PT OWN MED DRAWER 7, Y5N ONE (17:03)
[2017-12-07] MEDS: WARFARIN NA 7.5 MG TABLET (FP) PO SCH (17:15)
[2017-12-07] MEDS ORDERED: OFLOXACIN 0.3% OTIC SOLUTION 5 ML BOTTLE AD SCH (17:30)
[2017-12-07 18:19] VITALS: BP 115/54; PULSE 48; TEMP 97.8
== END 2017-12-07 18:37 | disposition home health service (06) | DRG 45 ==
LOC: JER 05:21 → JERBED 10:19 → J4S 11:28
PROVIDERS: ADMIT Internal Medicine; ATTEND Registered Nurse
DX: I63.8 Other cerebral infarction (principal); R29.810 Facial weakness; I25.110 Atherosclerotic heart disease of native coronary artery with unstable angina pectoris; E11.9 Type 2 diabetes mellitus without complications; I10 Essential (primary) hypertension; E78.5 Hyperlipidemia, unspecified; R07.89 Other chest pain; I48.92 Unspecified atrial flutter; I48.0 Paroxysmal atrial fibrillation; G89.29 Other chronic pain; K57.90 Diverticulosis of intestine, part unspecified, without perforation or abscess without bleeding; G47.39 Other sleep apnea; K80.80 Other cholelithiasis without obstruction; N20.0 Calculus of kidney; H66.91 Otitis media, unspecified, right ear; N17.9 Acute kidney failure, unspecified; D64.9 Anemia, unspecified; N40.1 Benign prostatic hyperplasia with lower urinary tract symptoms; R33.8 Other retention of urine; N39.0 Urinary tract infection, site not specified; I13.0 Hypertensive heart and chronic kidney disease with heart failure and stage 1 through stage 4 chronic kidney disease, or unspecified chronic kidney disease; E11.22 Type 2 diabetes mellitus with diabetic chronic kidney disease; N18.3 Chronic kidney disease, stage 3 (moderate); I50.30 Unspecified diastolic (congestive) heart failure; I24.8 Other forms of acute ischemic heart disease; E83.42 Hypomagnesemia; M26.69 Other specified disorders of temporomandibular joint; R13.19 Other dysphagia; J31.0 Chronic rhinitis; R07.0 Pain in throat; R50.9 Fever, unspecified; Z79.4 Long term (current) use of insulin; Z95.5 Presence of coronary angioplasty implant and graft; Z86.718 Personal history of other venous thrombosis and embolism; Z87.891 Personal history of nicotine dependence; Z91.19 Patient's noncompliance with other medical treatment and regimen
CPT/HCPCS: 36415; 70450-TC; 70490-TC; 70551-TC; 71045-TC; 76775-TC; 76856-TC; 80048; 80053; 80061; 80076; 81003; 81015; 82009; 82272; 82436; 82550; 82570; 82962; 83721; 83735; 84100; 84133; 84300; 84484; 85025; 85027; 85610; 85730; 87040; 87081; 87086; 87186; 87804; 93005; 93010; 93306-TC; 97116-GP; 97161-GP; 99285-25; J1644

== ENCOUNTER 2018-04-10 19:31 | Inpatient (IN) | payer OTHER ==
--- NOTE | 2018-04-10 19:49 | PDOC ---
History of Present Illness <Calvin Suggs - Last Filed: 04/10/18 22:47> - General History Source: Patient, Other (Daughter) Exam Limitations: No Limitations - History of Present Illness Initial Comments: 04/10/18 21:18 The patient is a 72 year old male with past medical history of HTN, hyperlipidemia, diabetes, atrial flutter, AFIB, CAD (s/p stent), past TIAs, BPH , CKD, diverticulosis, and chronic hip pain (3X broken hip) presents to the emergency department with urinary frequency since 3 days ago. The patient reports multiple episodes of 15-20 minute interval urinary frequency accompanied with discomfort while voiding. As per the daughter, the patients been living independently for the past 1 month, states hes unable to perform ADLs. The daughter reports the patients been mildly not lucid lately, secondary to not taking insulin. The daughter reports last known insulin shot was 6 days [employer] when the patients glucose level was elevated. The daughter reports the patient was admitted s/p a fall due to DKA. Denies fever, chills, cough or headache. Denies chest pain of sob. Denies dysuria, hematuria, or urgency to urinate. Denies abdominal pain or back pain. Denies any prior similar incident. Allergies: Wtbupez-Tms-AbV Reductase Inhibitor. Lactose Social history: The patient is a former smoker, quit 1995. Reports daily use of cigars. Denies the use of alcohol or recreational drugs. Surgical history: Appendectomy, L. hip replacement, Cholecystectomy, and Cardiac surgery (2012) PCP: Dr. Reyes <Lu Tovar - Last Filed: 04/10/18 23:11> - General Chief Complaint: Urinary Problem Stated Complaint: frequent urination Time Seen by Provider: 04/10/18 19:48 Past History - Past Medical History Anemia: No Asthma: No Cancer: No Cardiac Disorders: Yes (atrial flutter?) CVA: Yes (pt states several strokes, right sided weakness) COPD: No CHF: No Dementia: No Diabetes: Yes GI Disorders: No Disorders: Yes (kidney stent) HTN: Yes Hypercholesterolemia: Yes Liver Disease: No Seizures: No Thyroid Disease: Yes (hypothyroidism) - Surgical History Abdominal Surgery: No Appendectomy: Yes Cardiac Surgery: Yes (2012) Cholecystectomy: (gallstones) Lung Surgery: No Neurologic Surgery: No Orthopedic Surgery: Yes (Left hip replacement) - Immunization History Immunization Up to Date: No - Suicide/Smoking/Psychosocial Hx Smoking Status: No Smoking History: Never smoked Have you smoked in the past 12 months: No Number of Cigarettes Smoked Daily: 0 If you are a former smoker, when did you quit?: 1995 Cigars Per Day: 1 Information on smoking cessation initiated: No 'Breaking Loose' booklet given: 03/25/17 Hx Alcohol Use: No Drug/Substance Use Hx: No Substance Use Type: None Hx Substance Use Treatment: No <Calvin Suggs - Last Filed: 04/10/18 22:47> <Lu Tovar - Last Filed: 04/10/18 23:11> - Past Medical History Allergies/Adverse Reactions: Allergies Allergy/AdvReac Type Severity Reaction Status Date / Time Abcwxtc-Ezc-Stf Reductase Allergy Unknown Verified 04/10/18 19:36 Inhibitor lactose AdvReac Verified 04/10/18 19:36 Home Medications: Ambulatory Orders Tamsulosin HCl [Flomax -] 0.4 mg PO DAILY #10 capsule 06/01/16 Gemfibrozil [Lopid] 600 mg PO BID 10/14/16 Losartan Potassium [Cozaar -] 50 mg PO DAILY 10/14/16 Nitroglycerin [Nitrostat] 0.4 mg SL PRN PRN 10/14/16 Ranolazine [Ranexa -] 500 mg PO BID tab 11/01/16 Colesevelam HCl [Welchol (Nf)] 625 mg PO BID #30 tablet 11/20/16 Ranitidine [Zantac -] 150 mg PO DAILY #20 tablet 11/20/16 Amlodipine Besylate [Norvasc -] 2.5 mg PO DAILY #30 tablet 02/10/17 Isosorbide Mononitrate [Imdur -] 30 mg PO DAILY #30 tab 02/10/17 Insulin (Levemir) [Levemir Vial] 20 units SQ BID 11/12/17 Acetaminophen [Tylenol .Regular Strength -] 650 mg PO Q6H PRN tablet 12/07/17 Aspirin [ASA -] 81 mg PO DAILY tab.chew 12/07/17 Lidocaine 5% Patch [Lidoderm -] 1 patch TP DAILY #30 patch 12/07/17 Lidocaine Patch Removal [Lidoderm Patch Removal] 1 each MC DAILY@2200 #1 each Metoprolol Tartrate [Lopressor -] 50 mg PO BID #60 tablet 12/07/17 Ofloxacin Otic [Floxin Otic -] 5 drop AD BID #1 bottle 12/07/17 Oseltamivir Phosphate [Tamiflu] 75 mg PO BID #3 capsule 12/07/17 Sodium Chloride Nasal [place] [[place] Nasal [place] -] 2 spray NS Q12H PRN #1 spray 12/07/17 Syrge-Ndl,Ins 0.3 ml Half Yung [Insulin Syringe] 1 each MC BID #60 disp.syrin Warfarin Na [Coumadin -] 7.5 mg PO DAILY@1800 #30 tablet 12/07/17 Abd/GI Specific PMHX - Complaint Specific PMHX Diverticulitis: No Gall Bladder Disease: No GERD: No <Calvin Suggs - Last Filed: 04/10/18 22:47> Review of Systems - Review of Systems Able to Perform ROS?: Yes Comments:: 04/10/18 21:20 CONSTITUTIONAL: No fever, no chills, no fatigue EYES: No visual changes ENT: No ear pain, no sore throat CARDIOVASCULAR: No chest pain, no palpitations RESPIRATORY: No cough, no SOB GI: No abdominal pain, no nausea, no vomiting, no constipation, no diarrhea GENITOURINARY: (+) Urinary frequency. No dysuria, no hematuria MUSKULOSKELETAL: No backpain, no joint pain, no myalgias SKIN: No rash NEURO: No headache <Lu Tovar - Last Filed: 04/10/18 23:11> *Physical Exam - Vital Signs Last Vital Signs Temp Pulse Resp BP Pulse Ox 98.0 F 69 16 153/87 100 04/10/18 19:34 04/10/18 19:34 04/10/18 19:34 04/10/18 19:34 04/10/18 19:34 - Physical Exam Comments: 04/10/18 22:47 EXAMINATION CONSTITUTIONAL: Awake and alert, oriented to self only; obese, in no apparent distress HEAD: Normocephalic; atraumatic EYES: PERRL; EOM intact, conj-pink ENMT: External appears normal; mm-dry NECK: Supple; non-tender; no jvd CARD: Normal S1, S2; 2/5 kota murmur, no rubs, or gallops RESP: Normal chest excursion with respiration; breath sounds clear and equal bilaterally; no wheezes, rhonchi, or rales ABD: Soft, non-distended; + mild suprapubic tender; no palpable organomegaly, no palpable hernias; no cva ttp EXT: Normal ROM in all four extremities; RLE longer then LLE (old), non-tender to palpation; distal pulses intact SKIN: Warm, dry, no rash NEURO: alert, oriented to self only; know year. cn ii-xii grossly intact, motor-5/5x4, ambulates with a limp/anahi <Calvin Suggs - Last Filed: 04/10/18 22:47> - Vital Signs Last Vital Signs Temp Pulse Resp BP Pulse Ox 98.0 F 69 16 153/87 100 04/10/18 19:34 04/10/18 19:34 04/10/18 19:34 04/10/18 19:34 04/10/18 19:34 <Lu Tovar - Last Filed: 04/10/18 23:11> Heart Score/ECG Review - ECG Impressions Comment:: 04/10/18 23:09 Atrial fibrillation T wave abnormality, Unchanged from previous. <Lu Tovar - Last Filed: 04/10/18 23:11> ED Treatment Course - LABORATORY CBC & Chemistry Diagram: 04/10/18 20:37 04/10/18 20:37 <Calvin Suggs - Last Filed: 04/10/18 22:47> - LABORATORY CBC & Chemistry Diagram: 04/10/18 20:37 04/10/18 20:37 - ADDITIONAL ORDERS Additional order review: Laboratory Results 04/10/18 04/10/18 04/10/18 20:37 20:37 20:37 PT with INR 14.60 H INR 1.29 H D Sodium 132 L Potassium 3.9 Chloride 95 L Carbon Dioxide 24 Anion Gap 13 BUN 23 H D Creatinine 1.8 H Creat Clearance w eGFR 37.17 Random Glucose 615 H* D Calcium 9.1 Magnesium 1.6 L Total Bilirubin 0.4 D AST 10 L D ALT 14 Alkaline Phosphatase 156 H Total Protein 7.9 Albumin 3.4 Urine Color Yellow Urine Appearance Turbid Urine pH 5.0 Ur Specific [place] 1.030 Urine Protein 2+ H Urine Glucose (UA) 3+ H Urine Ketones Negative Urine Blood 2+ H Urine Nitrite Negative Urine Bilirubin Negative Urine Urobilinogen Negative Ur Leukocyte Esterase 3+ H Urine WBC (Auto) 1848 Urine RBC (Auto) 190 Urine Bacteria Moderate Urine Yeast Many 04/10/18 20:37 RBC 4.33 MCV 94.4 MCHC 33.1 RDW 14.0 MPV 9.4 Neutrophils % 66.6 D Lymphocytes % 22.4 D Monocytes % 8.8 Eosinophils % 1.7 Basophils % 0.5 <Lu Tovar - Last Filed: 04/10/18 23:11> Medical Decision Making - Medical Decision Making 04/10/18 22:55 72-year-old male with multiple comorbidities presents to the ER with urinary frequency and lower abdominal discomfort for the past several weeks with noncompliance with a diabetic diet and his overall medication regimen for the past week as per patient's [id number]. In the ER, patient is awake and alert, oriented to self only, without any other focal neurological deficits, afebrile and hemodynamically stable. CBC is at baseline. CMP reveals chronic renal insufficiency and significant hyperglycemia with a normal anion gap and a normal sodium bicarbonate; magnesium is noted to be decreased. Urinalysis reveals pyuria. After placement of [place] catheter, 700 mL of cloudy urine was obtained. At this time, given the patient's overall decreasing functional status , requirement for antibiotic therapy, fluid resuscitation and insolent therapy, patient will be admitted to [facility] for further treatment. <Calvin Suggs - Last Filed: 04/10/18 22:47> *DC/Admit/Observation/Transfer - Discharge Dispostion Decision to Admit order: Yes <Calvin Suggs - Last Filed: 04/10/18 22:47> - Attestations Scribe Attestion: 04/10/18 21:20 Documentation prepared by Lu Tovar, acting as diagnostic medical sonographer for Calvin Suggs MD. <Lu Tovar - Last Filed: 04/10/18 23:11> Diagnosis at time of Disposition: Acute urinary retention, Hypomagnesemia Urinary tract infection Qualifiers: Urinary tract infection type: acute cystitis Hematuria presence: with hematuria Qualified Code(s): N30.01 - Acute cystitis with hematuria CKD (chronic kidney disease) Qualifiers: Chronic kidney disease stage: unspecified stage Qualified Code(s): N18.9 - Chronic kidney disease, unspecified - Discharge Dispostion Condition at time of disposition: Fair
[2018-04-10 20:48] LABS: BASO % 0.5 % (0-2.0); EOS % 1.7 % (0-4.5); HEMATOCRIT 40.8 % (35.4-49); HEMOGLOBIN 13.5 GM/dL (11.7-16.9); LYMPH % 22.4 % (8-40); MCH 31.3 pg (25.7-33.7); MCHC 33.1 g/dl (32.0-35.9); MEAN CELL VOLUME 94.4 fl (80-96); MEAN PLT VOLUME 9.4 fl (7.5-11.1); MONO % 8.8 % (3.8-10.2); NEUT % 66.6 % (42.8-82.8); PLATELET COUNT 342 K/MM3 (134-434); RBC 4.33 M/mm3 (4.00-5.60)
[2018-04-10 20:51] LABS: URINE APPEARANCE TURBID; URINE BILIRUBIN NEGATIVE (<2.0 mg/dL); URINE COLOR YELLOW; URINE GLUCOSE (UA) 3+ (NEGATIVE); URINE KETONE NEGATIVE (NEGATIVE); URINE NITRITE NEGATIVE (NEGATIVE); URINE UROBILINOGEN NEGATIVE mg/dL (0.2-1.0)
[2018-04-10 20:59] LABS: URINE LEUK ESTERASE 3+ (NEGATIVE); URINE PROTEIN 2+ (NEGATIVE)
[2018-04-10 21:02] LABS: INR 1.29 (0.82-1.09); PROTHROMBIN TIME (PATIENT) 14.6 SEC (9.7-13.0)
[2018-04-10 21:03] LABS: URINE BACTERIA MODERATE /hpf (NONE SEEN); YEAST MANY
[2018-04-10 21:12] LABS: ALBUMIN 3.4 g/dl (3.4-5.0); ALK PHOS 156 U/L (45-117); ANION GAP 13 (8-16); BILIRUBIN,TOTAL 0.4 mg/dL (0.2-1.0); BLOOD UREA NITROGEN 23 mg/dL (7-18); CALCIUM 9.1 mg/dL (8.5-10.1); CHLORIDE 95 mmol/L (98-107); CO2 24 mmol/L (21-32); CREATININE 1.8 mg/dL (0.7-1.3); MAGNESIUM 1.6 mg/dL (1.8-2.4); POTASSIUM 3.9 mmol/L (3.5-5.1); SGOT/AST 10 U/L (15-37); SGPT/ALT 14 U/L (12-78); SODIUM 132 mmol/L (136-145); TOT PROT 7.9 g/dl (6.4-8.2)
[2018-04-10 21:13] LABS: GLUCOSE,RANDOM 615 mg/dL (74-106)
[2018-04-10] MEDS ORDERED: SODIUM CHLORIDE 500 ML IV STA (21:18)
[2018-04-10 21:22] LABS: ACETONE SERUM NEGATIVE (NEGATIVE)
[2018-04-10] MEDS ORDERED: CEFTRIAXONE 1,000 MG in DEXTROSE 5%-WATER - 50 ML IVPB ONE (21:25)
[2018-04-10] MEDS ORDERED: MAGNESIUM SULF 50% (8.12 MEQ/2 ML-1 GM VIAL) IVPB ONE (21:25)
[2018-04-10] MEDS ORDERED: INSULIN REGULAR HUMAN 100 UNITS/ML *VIAL SQ ONE (21:25)
[2018-04-10] MEDS ORDERED: cefTRIAXone SODIUM 1 GM VIAL ONE (21:55)
[2018-04-10] MEDS ORDERED: INSULIN REGULAR HUMAN 100 UNITS/ML *VIAL ONE (21:56)
[2018-04-10] MEDS ORDERED: WARFARIN NA 7.5 MG TABLET (FP) PO ONE (23:01)
[2018-04-10] MEDS ORDERED: TAMSULOSIN HCL 0.4 MG CAP.ER.24H (FP) PO ONE (23:22)
[2018-04-11] MEDS ORDERED: TAMSULOSIN HCL 0.4 MG CAP.ER.24H (FP) ONE (00:13)
--- NOTE | 2018-04-11 00:21 | PN ---
Teaching Attending Note Name of Resident: Yung Damon ATTENDING PHYSICIAN STATEMENT I saw and evaluated the patient. I reviewed the resident's note and discussed the case with the resident. I agree with the resident's findings and plan as documented. SUBJECTIVE: Patient is a 72 year old man with past medical history of HTN, hyperlipidemia, diabetes, atrial flutter, AFIB (on coumadin), CAD (s/p stent), past TIAs, BPH, CKD, diverticulosis, and chronic hip pain (3X broken hip) presents to the emergency department with urinary frequency, dysuria and lower abdominal pain for 3 days. The patient reports multiple episodes of 15-20 minute interval urinary frequency accompanied with discomfort while voiding. As per the daughter , the patients has been living independently for the past 1 month. He has been unable to perform ADLs and has not been taking his medications regularly since his was hospitalized. He has past surgical history of appendectomy, L. hip replacement, Cholecystectomy, and Cardiac surgery. While in the ER he started complaining of left calf pain. OBJECTIVE: Alert and in no acute respiratory distress. Vital Signs Period Temp Pulse Resp BP Sys/[place] Pulse Ox Last 24 Hr 98.0 F 69 16 153/87 100 HEENT: No Jaundice, eye redness or discharge, PERRLA, EOMI. Normocephalic, atraumatic. External ears are normal and hearing is grossly intact. No nasal discharge. Neck: Supple, nontender. No palpable adenopathy or thyromegaly. No JVD Chest: Good effort. Clear to auscultation and percussion. Heart: Regular. No S3, rub or murmur Abdomen: Not distended, soft, nontender and no HSM. No rebound or guarding. Normoactive bowel sounds. Ext: Peripheral pulses intact. No leg edema. No calf tenderness. Skin: Warm and dry. No petechiae, rash or ecchymosis. Neuro: Alert. Oriented x3. CN 2-12 grossly intact. Sensation grossly intact in all four extremities and DTR are symmetric. Current Medications Generic Name Dose Route Start Last Admin Trade Name Freq PRN Reason Stop Dose Admin Heparin Sodium (Porcine) 5,000 unit 04/11/18 06:00 Heparin - SQ TID [facility] Ceftriaxone Sodium 1 gm/ 50 mls @ 100 mls/hr 04/11/18 10:00 Dextrose IVPB DAILY [facility] Protocol Home Medications Medication Instructions Recorded Tamsulosin HCl [Flomax -] 0.4 mg PO DAILY #10 capsule 06/01/16 Gemfibrozil [Lopid] 600 mg PO BID 10/14/16 Losartan Potassium [Cozaar -] 50 mg PO DAILY 10/14/16 Nitroglycerin [Nitrostat] 0.4 mg SL PRN PRN 10/14/16 Ranolazine [Ranexa -] 500 mg PO BID tab 11/01/16 Colesevelam HCl [Welchol (Nf)] 625 mg PO BID #30 tablet 11/20/16 Ranitidine [Zantac -] 150 mg PO DAILY #20 tablet 11/20/16 Amlodipine Besylate [Norvasc -] 2.5 mg PO DAILY #30 tablet 02/10/17 Isosorbide Mononitrate [Imdur -] 30 mg PO DAILY #30 tab 02/10/17 Insulin (Levemir) [Levemir Vial] 20 units SQ BID 11/12/17 Acetaminophen [Tylenol .Regular 650 mg PO Q6H PRN tablet 12/07/17 Strength -] Aspirin [ASA -] 81 mg PO DAILY tab.chew 12/07/17 Lidocaine 5% Patch [Lidoderm -] 1 patch TP DAILY #30 patch 12/07/17 Lidocaine Patch Removal [Lidoderm 1 each MC DAILY@2200 #1 each 12/07/17 Patch Removal] Metoprolol Tartrate [Lopressor -] 50 mg PO BID #60 tablet 12/07/17 Ofloxacin Otic [Floxin Otic -] 5 drop AD BID #1 bottle 12/07/17 Oseltamivir Phosphate [Tamiflu] 75 mg PO BID #3 capsule 12/07/17 Sodium Chloride Nasal [place] [[place] 2 spray NS Q12H PRN #1 spray 12/07/17 [place] Nasal [place] -] Syrge-Ndl,Ins 0.3 ml Half Yung 1 each MC BID #60 disp.syrin 12/07/17 [Insulin Syringe] Warfarin Na [Coumadin -] 7.5 mg PO DAILY@1800 #30 tablet 12/07/17 Abnormal Lab Results 04/10/18 04/10/18 04/10/18 20:37 20:37 20:37 PT with INR 14.60 H INR 1.29 H D Sodium 132 L Chloride 95 L BUN 23 H D Creatinine 1.8 H Random Glucose 615 H* D Magnesium 1.6 L AST 10 L D Alkaline Phosphatase 156 H Urine Protein 2+ H Urine Glucose (UA) 3+ H Urine Blood 2+ H Ur Leukocyte Esterase 3+ H ASSESSMENT AND PLAN: 1. UTI - Findings consistent with UTI. Will continue IV Rocephin 1 gm q 24 hours pending urine and blood culture report. 2. Urinary retention - [place] catheter, urology consult and continue Flomax. 3. Afib - Rate controlled. INR is subtherapeutic. His [id number] score is high so we will bridge him with IV heparin and continue coumadin 7.5 mg daily. 4. CKD? - Has risk factors for CKD, but may also have a component of LORY from dehydration due to osmotic diuresis. Do comprehensive nephrologic work up and consult nephrology. Avoid nephrotoxic agents. 5. CAD - continue current regimen 6. Living Condition - Consult social services coordinator and telehealth case manager - he will need help at home before discharge since he cant manage alone. 7. Left calf tenderness - Doppler scan to rule out DVT. 8. Uncontrolled DM - No evidence of ketoacidosis. Will give insulin 10 sq and continue with sliding scale regimen. 9. Hypomagnesemia - Give one dose IV 2gm MgSO4 10. DVT prophylaxis - On coumadin and bridging IV heparin. 11. Advance directives - Full code
--- NOTE | 2018-04-11 00:33 | HP ---
CHIEF COMPLAINT: urinary frequency and dysuria PCP: Dr. Reyes HISTORY OF PRESENT ILLNESS: Pt is a 72 y/o M with PMH HTN, HLD, DM, flutter, AF, CAD (s/p stent), prior TIA , BPH, CKD, Diverticulosis, 3x hip fx w/ chronic pain, hypothyroid who presents to ED with dysuria and frequency x 3 d. Pt denies hematuria, nausea, vomiting, diarrhea, cp, sob. Per records, daughter stated that karina since pt's has been in the hospital recently, pt has been living alone and has not been able to perform his ADLs. Pt is responsible for self injecting Ins, and when asked about his high sugars, he stated, "oh, I must have missed a few doses". ER course was notable for: (1) INR 1.29, Na 132, Pharmacy Technician Per Diem 1.8, glucose 615, Mg 1.6, Alk Phos 156, UA: prot 2 , gluc 3, blood 2, LE 3, wbc 1848, bacteria (2) cxr: cardiomegally (pending official read) (3) given Ins, Flomax, Coumadin, Rocephin, heparin Recent Travel: denies PAST MEDICAL HISTORY: HTN, HLD, DM, flutter, AF, CAD (s/p stent), prior TIA, BPH, CKD, Diverticulosis , 3x hip fx w/ chronic pain, hypothyroid PAST SURGICAL HISTORY: Social History: Smoking: Alcohol: Drugs: Family History: Allergies Ybmttnw-Nnj-Giq Reductase Inhibitor Allergy (Unknown, Verified 04/10/18 19:36) lactose Adverse Reaction (Verified 04/10/18 19:36) HOME MEDICATIONS: Home Medications Medication Instructions Recorded Tamsulosin HCl [Flomax -] 0.4 mg PO DAILY #10 capsule 06/01/16 Gemfibrozil [Lopid] 600 mg PO BID 10/14/16 Losartan Potassium [Cozaar -] 50 mg PO DAILY 10/14/16 Nitroglycerin [Nitrostat] 0.4 mg SL PRN PRN 10/14/16 Ranolazine [Ranexa -] 500 mg PO BID tab 11/01/16 Colesevelam HCl [Welchol (Nf)] 625 mg PO BID #30 tablet 11/20/16 Ranitidine [Zantac -] 150 mg PO DAILY #20 tablet 11/20/16 Amlodipine Besylate [Norvasc -] 2.5 mg PO DAILY #30 tablet 02/10/17 Isosorbide Mononitrate [Imdur -] 30 mg PO DAILY #30 tab 02/10/17 Insulin (Levemir) [Levemir Vial] 20 units SQ BID 11/12/17 Acetaminophen [Tylenol .Regular 650 mg PO Q6H PRN tablet 12/07/17 Strength -] Aspirin [ASA -] 81 mg PO DAILY tab.chew 12/07/17 Lidocaine 5% Patch [Lidoderm -] 1 patch TP DAILY #30 patch 12/07/17 Lidocaine Patch Removal [Lidoderm 1 each MC DAILY@2200 #1 each 12/07/17 Patch Removal] Metoprolol Tartrate [Lopressor -] 50 mg PO BID #60 tablet 12/07/17 Ofloxacin Otic [Floxin Otic -] 5 drop AD BID #1 bottle 12/07/17 Oseltamivir Phosphate [Tamiflu] 75 mg PO BID #3 capsule 12/07/17 Sodium Chloride Nasal [place] [[place] 2 spray NS Q12H PRN #1 spray 12/07/17 [place] Nasal [place] -] Syrge-Ndl,Ins 0.3 ml Half Yung 1 each MC BID #60 disp.syrin 12/07/17 [Insulin Syringe] Warfarin Na [Coumadin -] 7.5 mg PO DAILY@1800 #30 tablet 12/07/17 REVIEW OF SYSTEMS CONSTITUTIONAL: Absent: fever, chills, diaphoresis, generalized weakness, malaise, loss of appetite, weight change HEENT: Absent: rhinorrhea, nasal congestion, throat pain, throat swelling, difficulty swallowing, mouth swelling, ear pain, eye pain, visual changes CARDIOVASCULAR: Absent: chest pain, syncope, palpitations, irregular heart rate, lightheadedness , peripheral edema RESPIRATORY: Absent: cough, shortness of breath, dyspnea with exertion, orthopnea, wheezing, stridor, hemoptysis GASTROINTESTINAL: Absent: abdominal pain, abdominal distension, nausea, vomiting, diarrhea, constipation, melena, hematochezia GENITOURINARY: Absent: dysuria, frequency, urgency, hesitancy, hematuria, flank pain, genital pain MUSCULOSKELETAL: Absent: myalgia, arthralgia, joint swelling, back pain, neck pain SKIN: Absent: rash, itching, pallor HEMATOLOGIC/IMMUNOLOGIC: Absent: easy bleeding, easy bruising, lymphadenopathy, frequent infections ENDOCRINE: Absent: unexplained weight gain, unexplained weight loss, heat intolerance, cold intolerance NEUROLOGIC: Absent: headache, focal weakness or paresthesias, dizziness, unsteady gait, seizure, mental status changes, bladder or bowel incontinence PSYCHIATRIC: Absent: anxiety, depression, suicidal or homicidal ideation, hallucinations. PHYSICAL EXAMINATION Vital Signs - 24 hr 04/10/18 19:34 Temperature 98.0 F Pulse Rate 69 Respiratory 16 Rate Blood Pressure 153/87 O2 Sat by Pulse 100 Oximetry (%) Gen: comfortable in bed in NAD HEENT: NCAT, EOMI Neck: supple, no jvd Cardio: extrasystoles, no murmurs/rubs/gallops appreciated Pulm: cta Abd: suprapubic tenderness to palpation with guarding Ext: 2+ pulses Laboratory Results - last 24 hr 04/10/18 04/10/18 04/10/18 20:37 20:37 20:37 WBC 7.0 RBC 4.33 Hgb 13.5 D Hct 40.8 MCV 94.4 MCH 31.3 MCHC 33.1 RDW 14.0 Plt Count 342 MPV 9.4 Absolute Neuts (auto) 4.7 Neutrophils % 66.6 D Lymphocytes % 22.4 D Monocytes % 8.8 Eosinophils % 1.7 Basophils % 0.5 Nucleated RBC % 0 PT with INR INR Sodium 132 L Potassium 3.9 Chloride 95 L Carbon Dioxide 24 Anion Gap 13 BUN 23 H D Creatinine 1.8 H Creat Clearance w eGFR 37.17 Random Glucose 615 H* D Calcium 9.1 Magnesium 1.6 L Total Bilirubin 0.4 D AST 10 L D ALT 14 Alkaline Phosphatase 156 H Total Protein 7.9 Albumin 3.4 Urine Color Yellow Urine Appearance Turbid Urine pH 5.0 Ur Specific [place] 1.030 Urine Protein 2+ H Urine Glucose (UA) 3+ H Urine Ketones Negative Urine Blood 2+ H Urine Nitrite Negative Urine Bilirubin Negative Urine Urobilinogen Negative Ur Leukocyte Esterase 3+ H Urine WBC (Auto) 1848 Urine RBC (Auto) 190 Urine Bacteria Moderate Urine Yeast Many Acetone, Qual Negative 04/10/18 20:37 WBC RBC Hgb Hct MCV MCH MCHC RDW Plt Count MPV Absolute Neuts (auto) Neutrophils % Lymphocytes % Monocytes % Eosinophils % Basophils % Nucleated RBC % PT with INR 14.60 H INR 1.29 H D Sodium Potassium Chloride Carbon Dioxide Anion Gap BUN Creatinine Creat Clearance w eGFR Random Glucose Calcium Magnesium Total Bilirubin AST ALT Alkaline Phosphatase Total Protein Albumin Urine Color Urine Appearance Urine pH Ur Specific [place] Urine Protein Urine Glucose (UA) Urine Ketones Urine Blood Urine Nitrite Urine Bilirubin Urine Urobilinogen Ur Leukocyte Esterase Urine WBC (Auto) Urine RBC (Auto) Urine Bacteria Urine Yeast Acetone, Qual ASSESSMENT/PLAN: Pt is a 72 y/o M with PMH AF and BPH who presents to ED with urinary retention, dysuria. Pt found to have UTI and LORY. #UTI -LE 3, WBC 1848, isabella 190 -likely 2/2 retention -no leukocytosis -rocephin in ED #Retention -likely 2/2 BPH and/or med noncompliance -straight cath yielded approx 300 cc -Flomax restarted -monitor -Urology consulted in ED #LORY -likely 2/2 retention -Pharmacy Technician Per Diem 1.8 from baseline 1.3-1.5 (earlier this year) -monitor for resolution with resolution of obstruction #FEN -NS -hypomag. repleted in ED -DM diet #PPx -Hep Sub Q #Dispo -Med/Surg -will likely need vns or snf or nh on d/c because he appears to be unable to manage his home meds on his own Yung Damon MD PGY-1 IM Visit type - Emergency Visit Emergency Visit: Yes Care time: The patient presented to the Emergency Department on the above date and was hospitalized for further evaluation of their emergent condition. - New Patient This patient is new to me today: Yes Date on this admission: 04/11/18 - Critical Care Critical Care patient: No Hospitalist Screening - Colonoscopy Questionnaire Colonoscopy Questionnaire: Colonoscopy Questionnaire - Patient: 50 - 75 years old and never had a screening colonoscopy: Unknown History of colon or rectal polyps, or CA: Unknown History of IBD, Crohn's disease or UC: Unknown History of abdominal radiation therapy as a child: Unknown - Relative: 1 with colon or rectal CA, or polyps at age 60 or younger: Unknown Colon or rectal CA diagnosed at age 45 or younger: Unknown Multiple relatives with colon or rectal CA: Unknown - Outcome: Screening Result: Negative Screen
[2018-04-11] MEDS ORDERED: HEPARIN NA (PORCINE) 5,000 UNITS/ML 1ML VIAL IVPUSH PRN ×5 (05:56→06:22)
[2018-04-11] MEDS ORDERED: HEPARIN INFUSION - 25,000 UNITS/500 ML INFUS.BAG IVPB SCH (06:00)
[2018-04-11] MEDS ORDERED: HEPARIN NA (PORCINE) 5,000 UNITS/ML 1ML VIAL SQ SCH (06:00)
[2018-04-11 06:13] VITALS: BMI 28.6
[2018-04-11] MEDS: INSULIN SLIDING SCALE (NOVOLOG) 1 VIAL SQ SCH ×4 (06:23→22:18)
[2018-04-11] MEDS: HEPARIN - 25,000 UNIT in SODIUM CHLORIDE 495 ML IV SCH (06:59)
[2018-04-11 07:39] LABS: BASO % 0.6 % (0-2.0); EOS % 2.7 % (0-4.5); HEMATOCRIT 37.7 % (35.4-49); MCH 32.1 pg (25.7-33.7); MCHC 34.3 g/dl (32.0-35.9); MEAN CELL VOLUME 93.5 fl (80-96); MEAN PLT VOLUME 9.2 fl (7.5-11.1); MONO % 7.9 % (3.8-10.2); NEUT % 57.8 % (42.8-82.8); PLATELET COUNT 306 K/MM3 (134-434); RBC 4.04 M/mm3 (4.00-5.60); WHITE BLOOD COUNT 7.9 K/mm3 (4.0-10.0)
[2018-04-11 08:05] LABS: ALBUMIN 3.3 g/dl (3.4-5.0); ANION GAP 8 (8-16); BLOOD UREA NITROGEN 22 mg/dL (7-18); CALCIUM 9.5 mg/dL (8.5-10.1); CHLORIDE 100 mmol/L (98-107); CO2 28 mmol/L (21-32); CREATININE 1.4 mg/dL (0.7-1.3); GLUCOSE,RANDOM 292 mg/dL (74-106); POTASSIUM 3.9 mmol/L (3.5-5.1); SGOT/AST 11 U/L (15-37); SGPT/ALT 15 U/L (12-78); SODIUM 136 mmol/L (136-145)
[2018-04-11 08:06] LABS: ALK PHOS 134 U/L (45-117); BILIRUBIN,TOTAL 0.4 mg/dL (0.2-1.0); TOT PROT 7.6 g/dl (6.4-8.2)
--- NOTE | 2018-04-11 08:10 | PN ---
Physical Exam: SUBJECTIVE: Patient seen and examined, urinary frequency better after coming to the hospital. No back pain, fevers/chills, dyspnea, chest pain, abdominal pain or new cough. Denies calf pain currently. OBJECTIVE: Vital Signs Period Temp Pulse Resp BP Sys/Crawford Pulse Ox Last 24 Hr 97.8 F-98.0 F 69-79 16-20 153-159/60-87 96-100 General: sitting in wheelchair in no acute distress Chest: CTAB, no rales or wheezing Abdomen: soft, ND, no CVA tenderness, mild suprapubic tenderness noted Extremities: no edema, neg calf tenderness, positive pulses Laboratory Results - last 24 hr 04/10/18 04/10/18 04/10/18 20:37 20:37 20:37 WBC 7.0 RBC 4.33 Hgb 13.5 D Hct 40.8 MCV 94.4 MCH 31.3 MCHC 33.1 RDW 14.0 Plt Count 342 MPV 9.4 Absolute Neuts (auto) 4.7 Neutrophils % 66.6 D Lymphocytes % 22.4 D Monocytes % 8.8 Eosinophils % 1.7 Basophils % 0.5 Nucleated RBC % 0 PT with INR INR PTT (Actin FS) Sodium 132 L Potassium 3.9 Chloride 95 L Carbon Dioxide 24 Anion Gap 13 BUN 23 H D Creatinine 1.8 H Creat Clearance w eGFR 37.17 POC Glucometer Random Glucose 615 H* D Calcium 9.1 Phosphorus Magnesium 1.6 L Total Bilirubin 0.4 D AST 10 L D ALT 14 Alkaline Phosphatase 156 H Total Protein 7.9 Albumin 3.4 Urine Color Yellow Urine Appearance Turbid Urine pH 5.0 Ur Specific [place] 1.030 Urine Protein 2+ H Urine Glucose (UA) 3+ H Urine Ketones Negative Urine Blood 2+ H Urine Nitrite Negative Urine Bilirubin Negative Urine Urobilinogen Negative Ur Leukocyte Esterase 3+ H Urine WBC (Auto) 1848 Urine RBC (Auto) 190 Urine Bacteria Moderate Urine Yeast Many Acetone, Qual Negative 04/10/18 04/11/18 04/11/18 20:37 05:57 06:35 WBC 7.9 RBC 4.04 Hgb 13.0 Hct 37.7 MCV 93.5 MCH 32.1 MCHC 34.3 RDW 14.0 Plt Count 306 MPV 9.2 Absolute Neuts (auto) 4.6 Neutrophils % 57.8 Lymphocytes % 31.0 D Monocytes % 7.9 Eosinophils % 2.7 Basophils % 0.6 Nucleated RBC % 0 PT with INR 14.60 H INR 1.29 H D PTT (Actin FS) Sodium Potassium Chloride Carbon Dioxide Anion Gap BUN Creatinine Creat Clearance w eGFR POC Glucometer 309 Random Glucose Calcium Phosphorus Magnesium Total Bilirubin AST ALT Alkaline Phosphatase Total Protein Albumin Urine Color Urine Appearance Urine pH Ur Specific [place] Urine Protein Urine Glucose (UA) Urine Ketones Urine Blood Urine Nitrite Urine Bilirubin Urine Urobilinogen Ur Leukocyte Esterase Urine WBC (Auto) Urine RBC (Auto) Urine Bacteria Urine Yeast Acetone, Qual 04/11/18 04/11/18 04/11/18 06:35 06:35 12:16 WBC RBC Hgb Hct MCV MCH MCHC RDW Plt Count MPV Absolute Neuts (auto) Neutrophils % Lymphocytes % Monocytes % Eosinophils % Basophils % Nucleated RBC % PT with INR INR PTT (Actin FS) 32.7 Sodium 136 Potassium 3.9 Chloride 100 Carbon Dioxide 28 Anion Gap 8 BUN 22 H Creatinine 1.4 H D Creat Clearance w eGFR 49.68 POC Glucometer 395 Random Glucose 292 H D Calcium 9.5 Phosphorus 3.0 D Magnesium 2.0 D Total Bilirubin 0.4 AST 11 L ALT 15 Alkaline Phosphatase 134 H Total Protein 7.6 Albumin 3.3 L Urine Color Urine Appearance Urine pH Ur Specific [place] Urine Protein Urine Glucose (UA) Urine Ketones Urine Blood Urine Nitrite Urine Bilirubin Urine Urobilinogen Ur Leukocyte Esterase Urine WBC (Auto) Urine RBC (Auto) Urine Bacteria Urine Yeast Acetone, Qual Active Medications Generic Name Dose Route Start Last Admin Trade Name Freq PRN Reason Stop Dose Admin Amlodipine Besylate 2.5 mg 04/11/18 10:00 Norvasc - PO DAILY [facility] Gemfibrozil 600 mg 04/11/18 16:30 Lopid - PO BID@0700,1630 [facility] Heparin Sodium (Porcine) 5,000 unit 04/11/18 06:22 Heparin - IVPUSH PRN PRN APTT LESS THAN 40 Heparin Sodium (Porcine) 1,000 unit 04/11/18 06:22 Heparin - IVPUSH PRN PRN APTT OF 40-49 Ceftriaxone Sodium 1 gm/ 50 mls @ 100 mls/hr 04/11/18 10:00 Dextrose IVPB DAILY [facility] Protocol Heparin Sodium (Porcine) 25, 500 mls @ 20 mls/hr 04/11/18 06:15 04/11/18 06: 59 000 unit/ Sodium Chloride IV 1,000 unit/hr TITR LONNIE 20 mls/hr Administration Protocol 1,000 UNIT/HR Ertapenem 1 gm/ Sodium 50 mls @ 50 mls/hr 04/11/18 10:00 Chloride IVPB DAILY [facility] Protocol Sodium Chloride 1,000 mls @ 50 mls/hr 04/11/18 08:15 Normal Saline - IV 04/12/18 08:03 ASDIR [facility]ON[facility] Insulin Aspart 1 vial 04/11/18 07:00 04/11/18 06:23 Novolog Vial Sliding Scale - SQ 8 unit ACHS [facility]ON[facility] Administration Protocol Insulin Detemir 20 units 04/11/18 10:00 Levemir Vial SQ BID [facility] Isosorbide Mononitrate 30 mg 04/11/18 10:00 Imdur - PO DAILY [facility] Metoprolol Tartrate 50 mg 04/11/18 10:00 Lopressor - PO BID [facility] Ranitidine HCl 150 mg 04/11/18 10:00 Zantac - PO DAILY [facility] Ranolazine 500 mg 04/11/18 10:00 Ranexa - PO BID [facility] Tamsulosin HCl 0.4 mg 04/11/18 08:30 Flomax - PO DAILY@0830 [facility] Urine cultures pending ASSESSMENT/PLAN: 72 yom with PMHx of HTN, hyperlipidemia, diabetes, atrial flutter, AFIB (on coumadin), CAD (s/p stent), past TIAs, BPH, CKD, diverticulosis, and chronic hip pain (3X broken hip) admitted with lower complicated UTI, hyperglycemia, and inability to care for at home. -Lower complicated UTI (H/o ESBL UTI and nephrolithiasis requiring ureteral stent and nephrostomy tube 01/2017) -LORY on CKD stage II (baseline 1.3-1.5) likely from retention/UTI +/- hpyovolumia -Hyperglycemia/IDDM, from poor compliance at home -Calf pain, duplex neg for DVT -Atrial fibrillation on coumadin, subtherapeutic INR, likely from non compliance -Hypomagnesemia -CAD s/p multiple PCI/Angina pectoris -Diastolic dysfunction -BPH Plan: Change to ertapenem, follow up urine cultures. [place] for now. Gentle hydration x 24 hours Renal/bladder US to assess for recurrent obstructive changes. Urology consult. REnal input if renal function fails to improve with resolution of retention and gentle hydration. Start Levemir 20 units BID based on prior admit, ISS, diabetic diet. Patient unsure of the dose. Heparin drip with coumadin 7.5 mg daily,daily INR LE duplex neg for DVT Replete Mg prn. resume ranexa, Imdur, metoprolol, confirm if on ASA. Resume amlodipine, hold losartan. DVTPPX as above Dispo pending resolution of active medical issues Will need PT eval and CM for safer disposition planning. Called [facility] pharmacy in [place], last med filled warfarin and metoprolol in december and losartan in April, no other prescriptions. Patient states given meds by his who is in the hospital for the last 2 months, states she 'put in pill boxes' and unsure how he gives his insulin. Strongly suspect non compliance. Attempt to confirm prior meds with PCP in AM. Visit type - Emergency Visit Emergency Visit: No - New Patient This patient is new to me today: Yes Date on this admission: 04/11/18 - Critical Care Critical Care patient: No
[2018-04-11] MEDS: TAMSULOSIN HCL 0.4 MG CAP.ER.24H (FP) PO SCH (08:30)
[2018-04-11] MEDS ORDERED: CEFTRIAXONE 1 GM in DEXTROSE 5%-WATER - 50 ML IVPB SCH (10:00)
[2018-04-11] MEDS: RANOLAZINE E.R. 500 MG TABLET (FP) PO SCH ×2 (10:30→22:18)
[2018-04-11] MEDS: ISOSORBIDE MONONITRATE 30 MG TAB.SR.24H (FP) PO SCH (10:30)
[2018-04-11] MEDS: METOPROLOL TARTRATE 50 MG TABLET (FP) PO SCH ×2 (10:30→22:18)
[2018-04-11] MEDS: amLODIPine BESYLATE 2.5 MG TABLET (FP) PO SCH (10:30)
[2018-04-11] MEDS: RANITIDINE HCL 150 MG TABLET (FP) PO SCH (10:30)
--- NOTE | 2018-04-11 11:48 | EKG ---
Test Reason : Blood Pressure : / mmHG Vent. Rate : 069 BPM Atrial Rate : 187 BPM P-R Int : 000 ms QRS Dur : 096 ms QT Int : 424 ms P-R-T Axes : 000 020 118 degrees QTc Int : 454 ms ATRIAL FIBRILLATION T WAVE ABNORMALITY, CONSIDER LATERAL ISCHEMIA ABNORMAL ECG WHEN COMPARED WITH ECG OF 28-NOV-2017 20:43, ATRIAL FIBRILLATION HAS REPLACED SINUS RHYTHM Confirmed by MD Quan, Glenroy ([id number]) on 04/11/2018 11:47:43 AM Referred By: Confirmed By:Glenroy Glass MD
[2018-04-11] MEDS: ERTAPENEM SODIUM 1 GM in SODIUM CHLORIDE 50 ML IVPB SCH (12:19)
[2018-04-11] MEDS: SODIUM CHLORIDE 1,000 ML IV SCH (12:19)
[2018-04-11] MEDS: INSULIN (LEVEMIR) 100 UNITS/ML UNITS SQ SCH ×2 (12:21→22:18)
[2018-04-11] MEDS: HEPARIN NA (PORCINE) 5,000 UNITS/ML 1ML VIAL IVPUSH PRN (14:28)
[2018-04-11] MEDS: GEMFIBROZIL 600 MG TABLET (FP) PO SCH (17:04)
[2018-04-11] MEDS ORDERED: WARFARIN NA 7.5 MG TABLET (FP) PO ONE (18:00)
[2018-04-12] MEDS: HEPARIN - 25,000 UNIT in SODIUM CHLORIDE 495 ML IV SCH (06:08)
[2018-04-12] MEDS: SODIUM CHLORIDE 1,000 ML IV SCH (06:10)
[2018-04-12] MEDS: INSULIN SLIDING SCALE (NOVOLOG) 1 VIAL SQ SCH ×4 (06:10→22:08)
[2018-04-12] MEDS: GEMFIBROZIL 600 MG TABLET (FP) PO SCH ×2 (06:10→17:59)
--- NOTE | 2018-04-12 07:41 | PN ---
Teaching Attending Note Name of Resident: Yung Damon ATTENDING PHYSICIAN STATEMENT I saw and evaluated the patient. I reviewed the resident's note and discussed the case with the resident. I agree with the resident's findings and plan as documented with exceptions below. SUBJECTIVE: Patient seen and examined. no urinary symptoms currently, no fevers/chills or back pain. Overall feels well. OBJECTIVE: Vital Signs Period Temp Pulse Resp BP Sys/Crawford Pulse Ox Last 24 Hr 97.6 F-98.2 F 60-76 18-20 101-142/44-68 96-96 Intake & Output 04/09/18 04/10/18 04/11/18 04/12/18 23:59 23:59 23:59 23:59 Intake Total 1220 1093 Output Total 700 1800 750 Balance -700 -580 343 Weight 250 lb 223 lb General: sleeping in bed comfortably Chest: CTAB, no rales or wheezing Abdomen: soft, mild suprapubic tenderness, NT otherwise, ND, no CVA tenderness Extremities: no edema Home Medications Medication Instructions Recorded Tamsulosin HCl [Flomax -] 0.4 mg PO DAILY #10 capsule 06/01/16 Gemfibrozil [Lopid] 600 mg PO BID 10/14/16 Losartan Potassium [Cozaar -] 50 mg PO DAILY 10/14/16 Nitroglycerin [Nitrostat] 0.4 mg SL PRN PRN 10/14/16 Ranolazine [Ranexa -] 500 mg PO BID tab 11/01/16 Colesevelam HCl [Welchol (Nf)] 625 mg PO BID #30 tablet 11/20/16 Ranitidine [Zantac -] 150 mg PO DAILY #20 tablet 11/20/16 Amlodipine Besylate [Norvasc -] 2.5 mg PO DAILY #30 tablet 02/10/17 Isosorbide Mononitrate [Imdur -] 30 mg PO DAILY #30 tab 02/10/17 Insulin (Levemir) [Levemir Vial] 20 units SQ BID 11/12/17 Acetaminophen [Tylenol .Regular 650 mg PO Q6H PRN tablet 12/07/17 Strength -] Aspirin [ASA -] 81 mg PO DAILY tab.chew 12/07/17 Lidocaine 5% Patch [Lidoderm -] 1 patch TP DAILY #30 patch 12/07/17 Lidocaine Patch Removal [Lidoderm 1 each MC DAILY@2200 #1 each 12/07/17 Patch Removal] Metoprolol Tartrate [Lopressor -] 50 mg PO BID #60 tablet 12/07/17 Ofloxacin Otic [Floxin Otic -] 5 drop AD BID #1 bottle 12/07/17 Oseltamivir Phosphate [Tamiflu] 75 mg PO BID #3 capsule 12/07/17 Sodium Chloride Nasal Merkel [[place] 2 spray NS Q12H PRN #1 spray 12/07/17 Merkel Nasal Merkel -] Syrge-Ndl,Ins 0.3 ml Half Yung 1 each MC BID #60 disp.syrin 12/07/17 [Insulin Syringe] Warfarin Na [Coumadin -] 7.5 mg PO DAILY@1800 #30 tablet 12/07/17 Active Medications Amlodipine Besylate (Norvasc -) 2.5 mg PO DAILY [facility] Last Admin: 04/11/18 10:30 Dose: 2.5 mg Aspirin (Asa -) 81 mg PO DAILY [facility] Gemfibrozil (Lopid -) 600 mg PO BID@0700,1630 [facility] Last Admin: 04/12/18 06:10 Dose: 600 mg Heparin Sodium (Porcine) (Heparin -) 5,000 unit IVPUSH PRN PRN PRN Reason: APTT LESS THAN 40 Last Admin: 04/11/18 20:26 Dose: 5,000 unit Heparin Sodium (Porcine) (Heparin -) 1,000 unit IVPUSH PRN PRN PRN Reason: APTT OF 40-49 Last Admin: 04/11/18 14:28 Dose: 1,000 unit Heparin Sodium (Porcine) 25, (000 unit/ Sodium Chloride) 500 mls @ 20 mls/hr IV TITR [facility]; Protocol Last Admin: 04/12/18 06:08 Dose: 1,200 unit/hr, 24 mls/hr Ertapenem 1 gm/ Sodium (Chloride) 50 mls @ 50 mls/hr IVPB DAILY [facility]; Protocol Last Admin: 04/11/18 12:19 Dose: 50 mls/hr Sodium Chloride (Normal Saline -) 1,000 mls @ 50 mls/hr IV ASDIR [facility] Stop: 04/12/18 08:03 Last Admin: 04/12/18 06:10 Dose: 50 mls/hr Insulin Aspart (Novolog Vial Sliding Scale -) 1 vial SQ ACHS [facility]; Protocol Last Admin: 04/12/18 06:10 Dose: Not Given Insulin Detemir (Levemir Vial) 20 units SQ BID [facility] Last Admin: 04/11/18 22:18 Dose: 20 units Isosorbide Mononitrate (Imdur -) 30 mg PO DAILY [facility] Last Admin: 04/11/18 10:30 Dose: 30 mg Metoprolol Tartrate (Lopressor -) 50 mg PO BID [facility] Last Admin: 04/11/18 22:18 Dose: 50 mg Ranitidine HCl (Zantac -) 150 mg PO DAILY [facility] Last Admin: 04/11/18 10:30 Dose: 150 mg Ranolazine (Ranexa -) 500 mg PO BID [facility] Last Admin: 04/11/18 22:18 Dose: 500 mg Tamsulosin HCl (Flomax -) 0.4 mg PO DAILY@0830 [facility] Last Admin: 04/11/18 08:30 Dose: 0.4 mg Laboratory Results - last 24 hr 04/11/18 04/11/18 04/11/18 16:13 19:05 20:48 WBC RBC Hgb Hct MCV MCH MCHC RDW Plt Count MPV Absolute Neuts (auto) Neutrophils % Lymphocytes % Monocytes % Eosinophils % Basophils % Nucleated RBC % PT with INR INR PTT (Actin FS) 30.9 D Sodium Potassium Chloride Carbon Dioxide Anion Gap BUN Creatinine POC Glucometer 291 350 Random Glucose Calcium Phosphorus Magnesium 04/12/18 04/12/18 04/12/18 02:39 05:37 06:30 WBC RBC Hgb Hct MCV MCH MCHC RDW Plt Count MPV Absolute Neuts (auto) Neutrophils % Lymphocytes % Monocytes % Eosinophils % Basophils % Nucleated RBC % PT with INR 15.90 H INR 1.41 H PTT (Actin FS) 80.4 H D Sodium Potassium Chloride Carbon Dioxide Anion Gap BUN Creatinine POC Glucometer 104 Random Glucose Calcium Phosphorus Magnesium 04/12/18 04/12/18 04/12/18 06:30 06:30 06:30 WBC 5.9 RBC 3.73 L Hgb 11.9 Hct 34.4 L MCV 92.1 MCH 31.8 MCHC 34.5 RDW 13.7 Plt Count 311 MPV 9.9 Absolute Neuts (auto) 2.4 Neutrophils % 39.8 L D Lymphocytes % 47.5 H D Monocytes % 8.0 Eosinophils % 3.9 Basophils % 0.8 Nucleated RBC % 0 PT with INR INR PTT (Actin FS) 61.8 H Sodium 138 Potassium 3.3 L Chloride 105 Carbon Dioxide 25 Anion Gap 8 BUN 22 H Creatinine 1.2 POC Glucometer Random Glucose 91 D Calcium 8.5 Phosphorus 3.3 Magnesium 1.6 L 04/12/18 04/12/18 09:50 12:16 WBC RBC Hgb Hct MCV MCH MCHC RDW Plt Count MPV Absolute Neuts (auto) Neutrophils % Lymphocytes % Monocytes % Eosinophils % Basophils % Nucleated RBC % PT with INR INR PTT (Actin FS) Sodium Potassium Chloride Carbon Dioxide Anion Gap BUN Creatinine POC Glucometer 243 214 Random Glucose Calcium Phosphorus Magnesium Microbiology 04/10/18 20:37 Urine - Urine Clean Catch Urine Culture - Final Yeast Like Organism ASSESSMENT AND PLAN: 72 yom with PMHx of HTN, hyperlipidemia, diabetes, atrial flutter, AFIB (on coumadin), CAD (s/p stent), past TIAs, BPH, CKD, diverticulosis, and chronic hip pain (3X broken hip) admitted with lower complicated UTI, hyperglycemia, and inability to care for at home. -Lower complicated UTI (H/o ESBL UTI and nephrolithiasis requiring ureteral stent and nephrostomy tube 01/2017) -LORY on CKD stage II (baseline 1.3-1.5) likely from retention/UTI +/- hpyovolumia -Hyperglycemia/IDDM, likely from poor compliance at home -Calf pain, duplex neg for DVT -Atrial fibrillation on coumadin, subtherapeutic INR, likely from non compliance -Hypomagnesemia -CAD s/p multiple PCI/Angina pectoris -Diastolic dysfunction -BPH Plan: Ertapenem day 2, urine cultures with yeast. ID input noted Fluconazole day 1. [place] for now, voiding trial per urology. Gentle hydration x 24 hours Renal/bladder US noted. Continue flomax, follow up urology input. Renal function improved. Increase levemir to 25 units BID, ISS, diabetic diet. Patient unsure of the dose. Heparin drip with coumadin 7.5 mg daily,daily INR LE duplex neg for DVT Replete Mg prn. Continue ranexa, Imdur, metoprolol, confirm if on ASA. Continue amlodipine, hold losartan. DVTPPX as above Dispo pending resolution of active medical issues [facility]. PT hussain and CM for safer disposition planning. Contact isolation. Plan discussed with patient and nursing in detail, all questions answered.
[2018-04-12 07:46] LABS: ANION GAP 8 (8-16); BLOOD UREA NITROGEN 22 mg/dL (7-18); CALCIUM 8.5 mg/dL (8.5-10.1); CHLORIDE 105 mmol/L (98-107); CO2 25 mmol/L (21-32); CREATININE 1.2 mg/dL (0.7-1.3); GLUCOSE,RANDOM 91 mg/dL (74-106); MAGNESIUM 1.6 mg/dL (1.8-2.4); PHOSPHOROUS 3.3 mg/dL (2.5-4.9); POTASSIUM 3.3 mmol/L (3.5-5.1); SODIUM 138 mmol/L (136-145)
[2018-04-12 07:51] LABS: BASO % 0.8 % (0-2.0); EOS % 3.9 % (0-4.5); HEMATOCRIT 34.4 % (35.4-49); HEMOGLOBIN 11.9 GM/dL (11.7-16.9); LYMPH % 47.5 % (8-40); MCH 31.8 pg (25.7-33.7); MCHC 34.5 g/dl (32.0-35.9); MEAN CELL VOLUME 92.1 fl (80-96); MEAN PLT VOLUME 9.9 fl (7.5-11.1); NEUT % 39.8 % (42.8-82.8); PLATELET COUNT 311 K/MM3 (134-434); RBC 3.73 M/mm3 (4.00-5.60); RDW 13.7 % (11.9-15.9); WHITE BLOOD COUNT 5.9 K/mm3 (4.0-10.0)
[2018-04-12] MEDS ORDERED: PT OWN MED DRAWER 7, Y5N ONE (08:17)
[2018-04-12] MEDS ORDERED: MAGNESIUM SULF 50% (8.12 MEQ/2 ML-1 GM VIAL) IVPB ONE (08:34)
[2018-04-12] MEDS: TAMSULOSIN HCL 0.4 MG CAP.ER.24H (FP) PO SCH (08:51)
[2018-04-12] MEDS: amLODIPine BESYLATE 2.5 MG TABLET (FP) PO SCH (09:51)
[2018-04-12] MEDS: RANITIDINE HCL 150 MG TABLET (FP) PO SCH (09:51)
[2018-04-12] MEDS: RANOLAZINE E.R. 500 MG TABLET (FP) PO SCH ×2 (09:51→22:02)
[2018-04-12] MEDS: ISOSORBIDE MONONITRATE 30 MG TAB.SR.24H (FP) PO SCH (09:51)
[2018-04-12] MEDS: METOPROLOL TARTRATE 50 MG TABLET (FP) PO SCH ×2 (09:51→22:02)
[2018-04-12] MEDS: ASPIRIN 81 MG CHEWABLE TABLETS PO SCH (09:51)
[2018-04-12] MEDS: INSULIN (LEVEMIR) 100 UNITS/ML UNITS SQ SCH ×2 (09:56→17:59)
[2018-04-12] MEDS ORDERED: MAGNESIUM SULFATE IN WATER 2 GM/50 ML IVPB IVPB ONE (10:00)
[2018-04-12] MEDS ORDERED: POTASSIUM CHLORIDE TABS 20 MEQ TABLET.ER (FP) PO ONE (10:00)
--- NOTE | 2018-04-12 10:30 | PN ---
Progress Note, Physician Chief Complaint: ID Says admitted for lower abd discomfort along with frequent urination history of Prostate surgery kidney stones nephrostomy tube NO fevers U/A always with many WBC now growing yeast - Current Medication List Current Medications: Active Medications Amlodipine Besylate (Norvasc -) 2.5 mg PO DAILY [facility] Last Admin: 04/12/18 09:51 Dose: 2.5 mg Aspirin (Asa -) 81 mg PO DAILY [facility] Last Admin: 04/12/18 09:51 Dose: 81 mg Gemfibrozil (Lopid -) 600 mg PO BID@0700,1630 [facility] Last Admin: 04/12/18 06:10 Dose: 600 mg Heparin Sodium (Porcine) (Heparin -) 5,000 unit IVPUSH PRN PRN PRN Reason: APTT LESS THAN 40 Last Admin: 04/11/18 20:26 Dose: 5,000 unit Heparin Sodium (Porcine) (Heparin -) 1,000 unit IVPUSH PRN PRN PRN Reason: APTT OF 40-49 Last Admin: 04/11/18 14:28 Dose: 1,000 unit Heparin Sodium (Porcine) 25, (000 unit/ Sodium Chloride) 500 mls @ 20 mls/hr IV TITR [facility]; Protocol Last Admin: 04/12/18 06:08 Dose: 1,200 unit/hr, 24 mls/hr Ertapenem 1 gm/ Sodium (Chloride) 50 mls @ 50 mls/hr IVPB DAILY [facility]; Protocol Last Admin: 04/11/18 12:19 Dose: 50 mls/hr Magnesium Sulfate (Magnesium Sulf 2 G/50 Ml Bag) 2 gm in 50 mls @ 50 mls/hr IVPB ONCE ONE Stop: 04/12/18 10:59 Last Admin: 04/12/18 09:52 Dose: 50 mls/hr Insulin Aspart (Novolog Vial Sliding Scale -) 1 vial SQ ACHS [facility]; Protocol Last Admin: 04/12/18 06:10 Dose: Not Given Insulin Detemir (Levemir Vial) 25 units SQ BIDI [facility] Last Admin: 04/12/18 09:56 Dose: 25 units Isosorbide Mononitrate (Imdur -) 30 mg PO DAILY [facility] Last Admin: 04/12/18 09:51 Dose: 30 mg Metoprolol Tartrate (Lopressor -) 50 mg PO BID [facility] Last Admin: 04/12/18 09:51 Dose: 50 mg Ranitidine HCl (Zantac -) 150 mg PO DAILY [facility] Last Admin: 04/12/18 09:51 Dose: 150 mg Ranolazine (Ranexa -) 500 mg PO BID [facility] Last Admin: 04/12/18 09:51 Dose: 500 mg Tamsulosin HCl (Flomax -) 0.4 mg PO DAILY@0830 [facility] Last Admin: 04/12/18 08:51 Dose: 0.4 mg Warfarin Sodium (Coumadin -) 7.5 mg PO DAILY@1800 [facility] - Objective Vital Signs: Vital Signs Temperature 98.3 F 04/12/18 09:57 Pulse Rate 69 04/12/18 09:57 Respiratory Rate 18 04/12/18 09:57 Blood Pressure 119/52 04/12/18 09:57 O2 Sat by Pulse Oximetry (%) 96 04/11/18 21:00 Gastrointestinal: Yes: Other (Mild suprapubic discomfort) Labs: CBC, BMP 04/12/18 06:30 04/12/18 06:30 INR, PTT INR 1.29 (0.82-1.09) H D 04/10/18 20:37 Problem List - Problems (1) Colonization with multidrug-resistant bacteria Code(s): Z22.322 - CARRIER OR SUSPECTED CARRIER OF METHICILLIN RESIS STAPH (2) UTI (urinary tract infection) Code(s): N39.0 - URINARY TRACT INFECTION, SITE NOT SPECIFIED Qualifiers: Urinary tract infection type: acute cystitis Hematuria presence: with hematuria Qualified Code(s): N30.01 - Acute cystitis with hematuria Assessment/Plan Microbiology 04/10/18 20:37 Urine - Urine Clean Catch Urine Culture - Final Yeast Like Organism 01/31/17 19:31 Urine - Urine Nephrostomy Tube Urine Culture - Final Escherichia Coli Esbl Instrument Adjuster 12/02/17 13:20 Rectal Swab VRE Culture - Final Vr Ec Faecalis Laboratory Tests 11/14/17 04/10/18 04/12/18 09:13 20:37 06:30 WBC 5.9 Hgb 11.9 Hct 34.4 L Plt Count 311 BUN Creatinine Urine Protein 2+ H Urine Glucose (UA) 3+ H Ur Leukocyte Esterase 3+ H 3+ H Urine WBC (Auto) 1848 Urine Bacteria Moderate Urine Yeast Many 04/12/18 06:30 WBC Hgb Hct Plt Count BUN 22 H Creatinine 1.2 Urine Protein Urine Glucose (UA) Ur Leukocyte Esterase Urine WBC (Auto) Urine Bacteria Urine Yeast Extesnive urological history well known to urology now with lower pelvic pain and frequency Growing yeast only Previous MDROs Plan Isolate contact Discussed with urology IV po Diflucan ? Need for ced Manzo MD
[2018-04-12] MEDS: ERTAPENEM SODIUM 1 GM in SODIUM CHLORIDE 50 ML IVPB SCH (11:21)
[2018-04-12] MEDS ORDERED: FLUCONAZOLE 400 MG/D5W 200 ML IVPB ONE (12:00)
[2018-04-12] MEDS ORDERED: FLUCONAZOLE 400 MG/NS 200 ML IVPB ONE (12:00)
[2018-04-12] MEDS ORDERED: INSULIN (NOVOLOG) ASPART 100 UNITS/ML 10ML VIAL ONE ×2 (12:18→22:06)
--- NOTE | 2018-04-12 13:44 | CONS ---
DATE OF CONSULTATION: DATE OF DICTATION: 04/12/2018 HISTORY: This is one of multiple admissions for this 72-year-old male with multiple comorbidities admitted for evaluation of urinary complaints and lower pelvic discomfort. He is well known to Dr. Edmondson as he has a history of prostate surgery, kidney stones, prior nephrostomy tube for obstructive uropathy, and admitted now with chief complaint of suprapubic discomfort, urinary frequency, and voiding small amounts of urine, which the patient says occurred over several days. He had no fever or chills, and his urinalysis showed many WBCs on which basis he was started on ertapenem because of a prior history of an ESBL in previous urine cultures in the past. A [place] catheter was also started and remains in place. He is relatively asymptomatic at this time. PAST MEDICAL HISTORY: Includes hypertension, hyperlipidemia, diabetes, atrial flutter, coronary artery disease, coronary stent, TIAs, BPH, chronic kidney disease, chronic hip pain. CURRENT MEDICATIONS: Tamsulosin, Lopid, losartan, amlodipine, insulin, aspirin, metoprolol, Coumadin. ALLERGIES: STATINS. SOCIAL HISTORY: Never smoked. No history of alcohol use or drug use. FAMILY HISTORY: Patient cannot provide. REVIEW OF SYSTEMS: Respiratory: No cough, shortness of breath. Cardiac: No chest pain, palpitations, syncope. Gastrointestinal: No nausea, vomiting, or diarrhea, abdominal pain. Genitourinary: Denies dysuria. Currently with a [place] catheter. No gross hematuria. PHYSICAL EXAMINATION: General: Reveals a heavy-set male. Vital Signs: Weighing 223 pounds. The temperature is 98.3, pulse 69, blood pressure 120/52, respirations 18. Neck: Supple. Lungs: Clear to percussion and auscultation. Heart: S1, S2. Regular rhythm without audible murmur. Abdomen: Not distended. Soft. Positive bowel sounds. Nontender. No guarding or rebound. Genitourinary: Indwelling [place] catheter. Extremities: No clubbing, cyanosis, or edema. LABORATORY DATA: White count 5.9, hemoglobin 11.9, platelets 311, BUN 22, creatinine 1.2, INR 1.29 on admission. Urine culture has a yeast growing. Urinalysis with 3+ leukocyte esterase, 1800 WBCs, 190 RBCs, moderate bacteria, many yeast. ASSESSMENT: A 72-year-old male with extensive urological history including prior nephrostomy tube, history of multidrug-resistant organisms including VREF in a rectal swab in November and ESBLs in prior nephrostomy tube drainage in January 2017. Clinically, he has no signs of infection at this time other than the abnormal urinalysis. He also has yeast growing, and Mer could be significant in this setting in terms of his having Mer cystitis versus Mer colonization. PLAN: For now, as discussed with Dr. Edmondson, we will treat him with IV Diflucan. We will need to watch the INR carefully due to potential interactions of Coumadin and Diflucan. Would treat him for 5-[address] Edmondson will see him later regarding the need for ongoing [place] catheter. Maintain contact isolation for history of multidrug-resistant organism. Can stop IV antibiotic LEEANNE KING M.D. [id number]
[2018-04-12 13:55] LABS: INR 1.41 (0.82-1.09); PROTHROMBIN TIME (PATIENT) 15.9 SEC (9.7-13.0)
--- NOTE | 2018-04-12 14:46 | PN ---
Physical Exam: SUBJECTIVE: Patient seen and examined at bedside. No acute events. Pt's sugars were well controlled. Afebrile. No complaints. No more abdominal tenderness. OBJECTIVE: Vital Signs Period Temp Pulse Resp BP Sys/Crawford Pulse Ox Last 24 Hr 97.6 F-98.9 F 59-76 18-20 101-120/44-68 96-96 Gen: comfortable in bed in NAD HEENT: NCAT, EOMI Neck: supple, no jvd Cardio: extrasystoles, no murmurs/rubs/gallops appreciated Pulm: cta Abd: suprapubic tenderness to palpation with guarding Ext: 2+ pulses Laboratory Results - last 24 hr 04/11/18 04/11/18 04/11/18 16:13 19:05 20:48 WBC RBC Hgb Hct MCV MCH MCHC RDW Plt Count MPV Absolute Neuts (auto) Neutrophils % Lymphocytes % Monocytes % Eosinophils % Basophils % Nucleated RBC % PTT (Actin FS) 30.9 D Sodium Potassium Chloride Carbon Dioxide Anion Gap BUN Creatinine POC Glucometer 291 350 Random Glucose Calcium Phosphorus Magnesium 04/12/18 04/12/18 04/12/18 02:39 05:37 06:30 WBC 5.9 RBC 3.73 L Hgb 11.9 Hct 34.4 L MCV 92.1 MCH 31.8 MCHC 34.5 RDW 13.7 Plt Count 311 MPV 9.9 Absolute Neuts (auto) 2.4 Neutrophils % 39.8 L D Lymphocytes % 47.5 H D Monocytes % 8.0 Eosinophils % 3.9 Basophils % 0.8 Nucleated RBC % 0 PTT (Actin FS) 80.4 H D Sodium Potassium Chloride Carbon Dioxide Anion Gap BUN Creatinine POC Glucometer 104 Random Glucose Calcium Phosphorus Magnesium 04/12/18 04/12/18 04/12/18 06:30 06:30 09:50 WBC RBC Hgb Hct MCV MCH MCHC RDW Plt Count MPV Absolute Neuts (auto) Neutrophils % Lymphocytes % Monocytes % Eosinophils % Basophils % Nucleated RBC % PTT (Actin FS) 61.8 H Sodium 138 Potassium 3.3 L Chloride 105 Carbon Dioxide 25 Anion Gap 8 BUN 22 H Creatinine 1.2 POC Glucometer 243 Random Glucose 91 D Calcium 8.5 Phosphorus 3.3 Magnesium 1.6 L 04/12/18 12:16 WBC RBC Hgb Hct MCV MCH MCHC RDW Plt Count MPV Absolute Neuts (auto) Neutrophils % Lymphocytes % Monocytes % Eosinophils % Basophils % Nucleated RBC % PTT (Actin FS) Sodium Potassium Chloride Carbon Dioxide Anion Gap BUN Creatinine POC Glucometer 214 Random Glucose Calcium Phosphorus Magnesium Active Medications Generic Name Dose Route Start Last Admin Trade Name Freq PRN Reason Stop Dose Admin Amlodipine Besylate 2.5 mg 04/11/18 10:00 04/12/18 09:51 Norvasc - PO 2.5 mg DAILY LONNIE Administration Aspirin 81 mg 04/12/18 10:00 04/12/18 09:51 Asa - PO 81 mg DAILY LONNIE Administration Fluconazole 200 mg 04/13/18 10:00 Diflucan - PO DAILY [facility] Gemfibrozil 600 mg 04/11/18 16:30 04/12/18 06:10 Lopid - PO 600 mg BID@0700,1630 LONNIE Administration Heparin Sodium (Porcine) 5,000 unit 04/11/18 06:22 04/11/18 20:26 Heparin - IVPUSH 5,000 unit PRN PRN Administration APTT LESS THAN 40 Heparin Sodium (Porcine) 1,000 unit 04/11/18 06:22 04/11/18 14:28 Heparin - IVPUSH 1,000 unit PRN PRN Administration APTT OF 40-49 Heparin Sodium (Porcine) 25, 500 mls @ 20 mls/hr 04/11/18 06:15 04/12/18 06: 08 000 unit/ Sodium Chloride IV 1,200 unit/hr TITR LONNIE 24 mls/hr Administration Protocol 1,000 UNIT/HR Insulin Aspart 1 vial 04/11/18 07:00 04/12/18 12:26 Novolog Vial Sliding Scale - SQ 4 unit ACHS [facility] Administration Protocol Insulin Detemir 25 units 04/12/18 08:00 04/12/18 09:56 Levemir Vial SQ 25 units BIDI [facility] Administration Isosorbide Mononitrate 30 mg 04/11/18 10:00 04/12/18 09:51 Imdur - PO 30 mg DAILY LONNIE Administration Metoprolol Tartrate 50 mg 04/11/18 10:00 04/12/18 09:51 Lopressor - PO 50 mg BID LONNIE Administration Ranitidine HCl 150 mg 04/11/18 10:00 04/12/18 09:51 Zantac - PO 150 mg DAILY LONNIE Administration Ranolazine 500 mg 04/11/18 10:00 04/12/18 09:51 Ranexa - PO 500 mg BID LONNIE Administration Tamsulosin HCl 0.4 mg 04/11/18 08:30 04/12/18 08:51 Flomax - PO 0.4 mg DAILY@0830 LONNIE Administration Warfarin Sodium 7.5 mg 04/12/18 18:00 Coumadin - PO DAILY@1800 [facility] ASSESSMENT/PLAN: Pt is a 72 y/o M with PMH AF and BPH who presents to ED with urinary retention, dysuria. Pt found to have UTI and LORY. 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 repleting -DM diet #PPx -Hep Sub Q #Dispo -Med/Surg -will likely need vns or snf or nh on d/c because he appears to be unable to manage his home meds on his own Yung Damon MD PGY-1 IM Visit type - Emergency Visit Emergency Visit: No - New Patient This patient is new to me today: No - Critical Care Critical Care patient: No - Discharge Referral Referred to [facility] Med P.C.: No
--- NOTE | 2018-04-12 17:23 | CON.GU ---
Consult - History of Present Illness History of Present Illness: 72 yo male well known to me with h/o recurrent uti, BPH s/p TURP in the past, h/ o bladder stones, h/o kidney stones. Now admitted with increased freq. Noted to have fungal UTI - Past Medical History Cardio/Vascular: Yes: AFIB, CAD, Deep Vein Thrombosis, HTN, Hyperlipdemia Pulmonary: Yes: Sleep Apnea Hepatobiliary: Yes: Cholelithiasis Renal/: Yes: Renal Inusuff, BPH, Renal Calculi Endocrine: Yes: Diabetes Mellitus - Past Surgical History Past Surgical History: Yes: Appendectomy, Joint Replacement (Hip surgery for fracture right femur, ORIF right ankle, hip replacement) - Alcohol/Substance Use Hx Alcohol Use: No - Smoking History Smoking history: Former smoker Have you smoked in the past 12 months: No Aproximately how many cigarettes per day: 0 If you are a former smoker, when did you quit?: 1995 - Social History Usual Living Arrangement: With Spouse ADL: Independent Home Medications - Allergies Allergies/Adverse Reactions: Allergies Allergy/AdvReac Type Severity Reaction Status Date / Time Jesmpna-Uyu-Nqf Reductase Allergy Unknown Verified 04/10/18 19:36 Inhibitor lactose AdvReac Verified 04/10/18 19:36 - Home Medications Home Medications: Ambulatory Orders Tamsulosin HCl [Flomax -] 0.4 mg PO DAILY #10 capsule 06/01/16 Gemfibrozil [Lopid] 600 mg PO BID 10/14/16 Losartan Potassium [Cozaar -] 50 mg PO DAILY 10/14/16 Nitroglycerin [Nitrostat] 0.4 mg SL PRN PRN 10/14/16 Ranolazine [Ranexa -] 500 mg PO BID tab 11/01/16 Colesevelam HCl [Welchol (Nf)] 625 mg PO BID #30 tablet 11/20/16 Ranitidine [Zantac -] 150 mg PO DAILY #20 tablet 11/20/16 Amlodipine Besylate [Norvasc -] 2.5 mg PO DAILY #30 tablet 02/10/17 Isosorbide Mononitrate [Imdur -] 30 mg PO DAILY #30 tab 02/10/17 Insulin (Levemir) [Levemir Vial] 20 units SQ BID 11/12/17 Acetaminophen [Tylenol .Regular Strength -] 650 mg PO Q6H PRN tablet 12/07/17 Aspirin [ASA -] 81 mg PO DAILY tab.chew 12/07/17 Lidocaine 5% Patch [Lidoderm -] 1 patch TP DAILY #30 patch 12/07/17 Lidocaine Patch Removal [Lidoderm Patch Removal] 1 each MC DAILY@2200 #1 each Metoprolol Tartrate [Lopressor -] 50 mg PO BID #60 tablet 12/07/17 Ofloxacin Otic [Floxin Otic -] 5 drop AD BID #1 bottle 12/07/17 Oseltamivir Phosphate [Tamiflu] 75 mg PO BID #3 capsule 12/07/17 Sodium Chloride Nasal Charlotte [Caroleen Charlotte Nasal Charlotte -] 2 spray NS Q12H PRN #1 spray 12/07/17 Syrge-Ndl,Ins 0.3 ml Half Yung [Insulin Syringe] 1 each MC BID #60 disp.syrin Warfarin Na [Coumadin -] 7.5 mg PO DAILY@1800 #30 tablet 12/07/17 Family Disease History - Family Disease History Family Disease History: Diabetes: Grandparent Review of Systems - Review of Systems Genitourinary: reports: Frequency Physical Exam- Vital Signs: Vital Signs Temperature 98.9 F 04/12/18 13:50 Pulse Rate 59 L 04/12/18 13:50 Respiratory Rate 20 04/12/18 13:50 Blood Pressure 119/56 04/12/18 13:50 O2 Sat by Pulse Oximetry (%) 96 04/12/18 10:00 Renal/: Yes: [place] Present Labs: CBC, BMP 04/12/18 06:30 04/12/18 06:30 Imaging - Results Ultrasound: Report Reviewed Problem List - Problems (1) UTI (urinary tract infection) Assessment/Plan: Diflucan as per ID, cont Flomax, voiding trial in am Code(s): N39.0 - URINARY TRACT INFECTION, SITE NOT SPECIFIED Qualifiers: Urinary tract infection type: acute cystitis Hematuria presence: with hematuria Qualified Code(s): N30.01 - Acute cystitis with hematuria
[2018-04-12] MEDS: WARFARIN NA 7.5 MG TABLET (FP) PO SCH (17:57)
[2018-04-13] MEDS ORDERED: BENZOCAINE/MENTH/CETYLPYRD CL 1 EACH LOZENGE MM PRN (01:19)
[2018-04-13] MEDS ORDERED: INSULIN (NOVOLOG) ASPART 100 UNITS/ML 10ML VIAL ONE ×2 (06:14→21:01)
[2018-04-13] MEDS: INSULIN (LEVEMIR) 100 UNITS/ML UNITS SQ SCH ×2 (06:26→16:58)
[2018-04-13] MEDS: INSULIN SLIDING SCALE (NOVOLOG) 1 VIAL SQ SCH ×4 (06:26→21:30)
[2018-04-13] MEDS: HEPARIN - 25,000 UNIT in SODIUM CHLORIDE 495 ML IV SCH (06:46)
[2018-04-13] MEDS: GEMFIBROZIL 600 MG TABLET (FP) PO SCH ×2 (06:47→16:57)
[2018-04-13 07:17] LABS: BASO % 0.7 % (0-2.0); EOS % 4.8 % (0-4.5); HEMATOCRIT 33.1 % (35.4-49); HEMOGLOBIN 11.5 GM/dL (11.7-16.9); LYMPH % 43.1 % (8-40); MCH 32.1 pg (25.7-33.7); MCHC 34.8 g/dl (32.0-35.9); MEAN CELL VOLUME 92.3 fl (80-96); MONO % 9.5 % (3.8-10.2); NEUT % 41.9 % (42.8-82.8); PLATELET COUNT 282 K/MM3 (134-434); RBC 3.59 M/mm3 (4.00-5.60); RDW 14.1 % (11.9-15.9); WHITE BLOOD COUNT 5.7 K/mm3 (4.0-10.0)
[2018-04-13 07:47] LABS: ALBUMIN 2.8 g/dl (3.4-5.0); ANION GAP 9 (8-16); BLOOD UREA NITROGEN 19 mg/dL (7-18); CALCIUM 8.4 mg/dL (8.5-10.1); CHLORIDE 107 mmol/L (98-107); CO2 24 mmol/L (21-32); GLUCOSE,RANDOM 69 mg/dL (74-106); MAGNESIUM 1.7 mg/dL (1.8-2.4); PHOSPHOROUS 3.4 mg/dL (2.5-4.9); POTASSIUM 3.5 mmol/L (3.5-5.1); SGOT/AST 13 U/L (15-37); SGPT/ALT 13 U/L (12-78); SODIUM 140 mmol/L (136-145)
[2018-04-13 07:49] LABS: ALK PHOS 96 U/L (45-117); BILIRUBIN,TOTAL 0.2 mg/dL (0.2-1.0); CREATININE 1.2 mg/dL (0.7-1.3); TOT PROT 6.4 g/dl (6.4-8.2)
[2018-04-13] MEDS ORDERED: MAGNESIUM SULF 50% (8.12 MEQ/2 ML-1 GM VIAL) IVPB ONE (07:57)
[2018-04-13] MEDS ORDERED: MAGNESIUM SULFATE IN WATER 2 GM/50 ML IVPB IVPB ONE (09:00)
[2018-04-13] MEDS ORDERED: NAPH,MB-DB/K PH,MBDB POWDER PACKET PO ONE (09:00)
[2018-04-13] MEDS ORDERED: PT OWN MED DRAWER 7, Y5N ONE (10:42)
[2018-04-13] MEDS: RANOLAZINE E.R. 500 MG TABLET (FP) PO SCH ×2 (10:48→21:29)
[2018-04-13] MEDS: FLUCONAZOLE 100 MG TABLET (UD) PO SCH (10:48)
[2018-04-13] MEDS: amLODIPine BESYLATE 2.5 MG TABLET (FP) PO SCH (10:48)
[2018-04-13] MEDS: METOPROLOL TARTRATE 50 MG TABLET (FP) PO SCH ×2 (10:49→21:29)
[2018-04-13] MEDS: ISOSORBIDE MONONITRATE 30 MG TAB.SR.24H (FP) PO SCH (10:49)
[2018-04-13] MEDS: TAMSULOSIN HCL 0.4 MG CAP.ER.24H (FP) PO SCH (10:49)
[2018-04-13] MEDS: ASPIRIN 81 MG CHEWABLE TABLETS PO SCH (10:49)
[2018-04-13] MEDS: RANITIDINE HCL 150 MG TABLET (FP) PO SCH (10:49)
--- NOTE | 2018-04-13 13:05 | PN ---
Teaching Attending Note Name of Resident: Yung Damon ATTENDING PHYSICIAN STATEMENT I saw and evaluated the patient. I reviewed the resident's note and discussed the case with the resident. I agree with the resident's findings and plan as documented. SUBJECTIVE:asymptomatic. denies CP, SOB< fever, chills, N/V/C/D. no difficulty urinating since coughlin removed OBJECTIVE: Last Vital Signs Temp Pulse Resp BP Pulse Ox 97.6 F 54 L 20 132/62 91 L 04/13/18 06:00 04/13/18 06:00 04/13/18 06:00 04/13/18 06:00 04/12/18 21:00 general NAD cv S1 S2 RRR no murmur/rub/gallop lungs CTA B/L no wheezing/rales/rhonchi abdomen soft NT/ND obese extremities no pedal edema ASSESSMENT AND PLAN: 72 yo M with PMHx of HTN, hyperlipidemia, diabetes, atrial flutter, AFIB (on coumadin), CAD (s/p stent), past TIAs, BPH, CKD, diverticulosis, and chronic hip pain (3X broken hip) admitted with lower complicated UTI, hyperglycemia, and inability to care for at home. 1. Lower complicated UTI (H/o ESBL UTI and nephrolithiasis requiring ureteral stent and nephrostomy tube 01/2017)- clinically improved. UCx showing yeast. d/c ertapenem. cont fluconazole day 2. f/u repeat cx sent yesterday. coughlin removed today. ID and urology on board 2. LORY on CKD stage II (baseline 1.3-1.5) likely from retention/UTI +/- hypovolumia- now resolved. 3. Hyperglycemia- levemir increased to 25units BID. low glucose this AM but asymptomatic. will reduce levemir to 20 units BID which is home dose. titrate as needed. likely due to non compliance at home as per sign out pt was unaware he was taking insulin. 4. urinary retention- likely due to UTI. coughlin removed this AM. urinating freely 5. subtherapeutic INR-due to noncompliance. pt under impression we started medication here. on hep-coumadin bridge. will need to monitor closely while on fluconazole. daily INR checks 6. Calf pain- now resolved. duplex neg for DVT 7. hypomagnesemia- Mg po 8. CAD 9. diastolic CHF- no signs of heart failure 10. BPH 11. DVT ppx- hep/coumadin bridge 12. pt does not seem to understand his diagnoses and what his medications are. states his helps him at home but has been hospitalized for the past month. when questioning the patient what are his plans on discharge with his not being home to help him and likelihood that she will be too sick to help look after himself was "well i guess then i ". patient does not seem a threat to himself. unclear if its depression or lack of understanding of his illnesses and importance of medication compliance. will consult psych to determine competency as pt does not seem to understand. will reach out to family to determine their disposition
[2018-04-13 13:48] LABS: INR 1.52 (0.82-1.09); PROTHROMBIN TIME (PATIENT) 17.2 SEC (9.7-13.0)
--- NOTE | 2018-04-13 13:48 | PN ---
Physical Exam: SUBJECTIVE: Patient seen and examined OBJECTIVE: Vital Signs Period Temp Pulse Resp BP Sys/Crawford Pulse Ox Last 24 Hr 97.5 F-98.9 F 54-59 20-20 119-132/56-67 91 GENERAL: The patient is awake, alert, and fully oriented, in no acute distress. HEAD: Normal with no signs of trauma. EYES: PERRL, extraocular movements intact, sclera anicteric, conjunctiva clear. No ptosis. ENT: Ears normal, nares patent, oropharynx clear without exudates, moist mucous membranes. NECK: Trachea midline, full range of motion, supple. LUNGS: Breath sounds equal, clear to auscultation bilaterally, no wheezes, no crackles, no accessory muscle use. HEART: Regular rate and rhythm, S1, S2 without murmur, rub or gallop. ABDOMEN: Soft, nontender, nondistended, normoactive bowel sounds, no guarding, no rebound, no hepatosplenomegaly, no masses. EXTREMITIES: 2+ pulses, warm, well-perfused, no edema. NEUROLOGICAL: Cranial nerves II through XII grossly intact. Normal speech, gait not observed. PSYCH: Normal mood, normal affect. SKIN: Warm, dry, normal turgor, no rashes or lesions noted Laboratory Results - last 24 hr 04/12/18 04/12/18 04/12/18 06:30 17:07 22:04 WBC RBC Hgb Hct MCV MCH MCHC RDW Plt Count MPV Absolute Neuts (auto) Neutrophils % Lymphocytes % Monocytes % Eosinophils % Basophils % Nucleated RBC % PT with INR 15.90 H INR 1.41 H PTT (Actin FS) Sodium Potassium Chloride Carbon Dioxide Anion Gap BUN Creatinine Creat Clearance w eGFR POC Glucometer 216 209 Random Glucose Calcium Phosphorus Magnesium Total Bilirubin AST ALT Alkaline Phosphatase Total Protein Albumin 04/13/18 04/13/18 04/13/18 06:02 06:22 06:22 WBC 5.7 RBC 3.59 L Hgb 11.5 L Hct 33.1 L MCV 92.3 MCH 32.1 MCHC 34.8 RDW 14.1 Plt Count 282 MPV 9.0 Absolute Neuts (auto) 2.4 Neutrophils % 41.9 L Lymphocytes % 43.1 H Monocytes % 9.5 Eosinophils % 4.8 H Basophils % 0.7 Nucleated RBC % 0 PT with INR INR PTT (Actin FS) 63.6 H Sodium Potassium Chloride Carbon Dioxide Anion Gap BUN Creatinine Creat Clearance w eGFR POC Glucometer 72 Random Glucose Calcium Phosphorus Magnesium Total Bilirubin AST ALT Alkaline Phosphatase Total Protein Albumin 04/13/18 04/13/18 06:22 11:05 WBC RBC Hgb Hct MCV MCH MCHC RDW Plt Count MPV Absolute Neuts (auto) Neutrophils % Lymphocytes % Monocytes % Eosinophils % Basophils % Nucleated RBC % PT with INR INR PTT (Actin FS) Sodium 140 Potassium 3.5 Chloride 107 Carbon Dioxide 24 Anion Gap 9 BUN 19 H Creatinine 1.2 Creat Clearance w eGFR 59.35 POC Glucometer 123 Random Glucose 69 L D Calcium 8.4 L Phosphorus 3.4 Magnesium 1.7 L Total Bilirubin 0.2 D AST 13 L ALT 13 Alkaline Phosphatase 96 D Total Protein 6.4 Albumin 2.8 L Active Medications Generic Name Dose Route Start Last Admin Trade Name Freq PRN Reason Stop Dose Admin Amlodipine Besylate 2.5 mg 04/11/18 10:00 04/13/18 10:48 Norvasc - PO 2.5 mg DAILY LONNIE Administration Aspirin 81 mg 04/12/18 10:00 04/13/18 10:49 Asa - PO 81 mg DAILY LONNIE Administration Benzocaine/Menthol 1 each 04/13/18 01:19 Cepacol Lozenge - MM PRN PRN SORE THROAT Fluconazole 200 mg 04/13/18 10:00 04/13/18 10:48 Diflucan - PO 200 mg DAILY LONNIE Administration Gemfibrozil 600 mg 04/11/18 16:30 04/13/18 06:47 Lopid - PO 600 mg BID@0700,1630 LONNIE Administration Heparin Sodium (Porcine) 5,000 unit 04/11/18 06:22 04/11/18 20:26 Heparin - IVPUSH 5,000 unit PRN PRN Administration APTT LESS THAN 40 Heparin Sodium (Porcine) 1,000 unit 04/11/18 06:22 04/11/18 14:28 Heparin - IVPUSH 1,000 unit PRN PRN Administration APTT OF 40-49 Heparin Sodium (Porcine) 25, 500 mls @ 20 mls/hr 04/11/18 06:15 04/13/18 06: 46 000 unit/ Sodium Chloride IV 1,200 unit/hr TITR LONNIE 24 mls/hr Administration Protocol 1,000 UNIT/HR Insulin Aspart 1 vial 04/11/18 07:00 04/13/18 11:24 Novolog Vial Sliding Scale - SQ Not Given ACHS [facility] Protocol Insulin Detemir 20 units 04/13/18 07:56 Levemir Vial SQ BIDI LONNIE Isosorbide Mononitrate 30 mg 04/11/18 10:00 04/13/18 10:49 Imdur - PO 30 mg DAILY LONNIE Administration Metoprolol Tartrate 50 mg 04/11/18 10:00 04/13/18 10:49 Lopressor - PO 50 mg BID LONNIE Administration Ranitidine HCl 150 mg 04/11/18 10:00 04/13/18 10:49 Zantac - PO 150 mg DAILY LONNIE Administration Ranolazine 500 mg 04/11/18 10:00 04/13/18 10:48 Ranexa - PO 500 mg BID LONNIE Administration Tamsulosin HCl 0.4 mg 04/11/18 08:30 04/13/18 10:49 Flomax - PO 0.4 mg DAILY@0830 LONNIE Administration Warfarin Sodium 7.5 mg 04/12/18 18:00 04/12/18 17:57 Coumadin - PO 7.5 mg DAILY@1800 LONNIE Administration ASSESSMENT/PLAN: Pt is a 72 y/o M with PMH AF and BPH who presents to ED with urinary retention, dysuria. Pt found to have UTI and LORY. #UTI -LE 3, WBC 1848, isabella 190 on admission -likely 2/2 retention -no leukocytosis -rocephin in ED -UCx pos for fungal - started on fluconazole by ID #Retention -likely 2/2 BPH and/or med noncompliance -straight cath yielded approx 300 cc -Flomax restarted -monitor -Urology rec void trial -coughlin d/c'ed. 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 repleting -DM diet #PPx -Hep Sub Q #Dispo -Med/Surg -will likely need vns or snf or nh on d/c because he appears to be unable to manage his home meds on his own Yung Damon MD PGY-1 IM Visit type - Emergency Visit Emergency Visit: No - New Patient This patient is new to me today: No - Critical Care Critical Care patient: No - Discharge Referral Referred to [facility] Med [facility] No
--- NOTE | 2018-04-13 15:16 | PN ---
Progress Note, Physician History of Present Illness: Awake, alert in bed Coughlin catheter removed Awaiting voiding trial No c/o fever/ chills - Current Medication List Current Medications: Active Medications Amlodipine Besylate (Norvasc -) 2.5 mg PO DAILY [facility] Last Admin: 04/13/18 10:48 Dose: 2.5 mg Aspirin (Asa -) 81 mg PO DAILY [facility] Last Admin: 04/13/18 10:49 Dose: 81 mg Benzocaine/Menthol (Cepacol Lozenge -) 1 each MM PRN PRN PRN Reason: SORE THROAT Fluconazole (Diflucan -) 200 mg PO DAILY [facility] Last Admin: 04/13/18 10:48 Dose: 200 mg Gemfibrozil (Lopid -) 600 mg PO BID@0700,1630 [facility] Last Admin: 04/13/18 06:47 Dose: 600 mg Heparin Sodium (Porcine) (Heparin -) 5,000 unit IVPUSH PRN PRN PRN Reason: APTT LESS THAN 40 Last Admin: 04/11/18 20:26 Dose: 5,000 unit Heparin Sodium (Porcine) (Heparin -) 1,000 unit IVPUSH PRN PRN PRN Reason: APTT OF 40-49 Last Admin: 04/11/18 14:28 Dose: 1,000 unit Heparin Sodium (Porcine) 25, (000 unit/ Sodium Chloride) 500 mls @ 20 mls/hr IV TITR [facility]; Protocol Last Admin: 04/13/18 06:46 Dose: 1,200 unit/hr, 24 mls/hr Insulin Aspart (Novolog Vial Sliding Scale -) 1 vial SQ ACHS [facility]; Protocol Last Admin: 04/13/18 11:24 Dose: Not Given Insulin Detemir (Levemir Vial) 20 units SQ BIDI [facility] Isosorbide Mononitrate (Imdur -) 30 mg PO DAILY [facility] Last Admin: 04/13/18 10:49 Dose: 30 mg Metoprolol Tartrate (Lopressor -) 50 mg PO BID [facility] Last Admin: 04/13/18 10:49 Dose: 50 mg Ranitidine HCl (Zantac -) 150 mg PO DAILY [facility] Last Admin: 04/13/18 10:49 Dose: 150 mg Ranolazine (Ranexa -) 500 mg PO BID [facility] Last Admin: 04/13/18 10:48 Dose: 500 mg Tamsulosin HCl (Flomax -) 0.4 mg PO DAILY@0830 [facility] Last Admin: 04/13/18 10:49 Dose: 0.4 mg Warfarin Sodium (Coumadin -) 7.5 mg PO DAILY@1800 [facility] Last Admin: 04/12/18 17:57 Dose: 7.5 mg - Objective Vital Signs: Vital Signs Temperature 97.7 F 04/13/18 08:00 Pulse Rate 68 04/13/18 08:00 Respiratory Rate 18 04/13/18 08:00 Blood Pressure 156/84 04/13/18 08:00 O2 Sat by Pulse Oximetry (%) 91 L 04/12/18 21:00 Constitutional: Yes: No Distress Eyes: Yes: Conjunctiva Clear Cardiovascular: Yes: Regular Rate and Rhythm, S1, S2 Respiratory: Yes: CTA Bilaterally Gastrointestinal: Yes: Normal Bowel Sounds, Soft Genitourinary: Yes: Other (no suprapubic tenderness) Labs: CBC, BMP 04/13/18 06:22 04/13/18 06:22 INR, PTT INR 1.52 (0.82-1.09) H 04/13/18 06:22 Assessment/Plan Fungal cystitis S/P removal of coughlin catheter Continue po fluconazole
[2018-04-13] MEDS: WARFARIN NA 7.5 MG TABLET (FP) PO SCH (17:07)
--- NOTE | 2018-04-13 18:17 | PN ---
Mental Health Exam - Mental Status Exam Alert and Oriented to: Time (NOT ORIENTATED), Place (ORIENTATED), Person ( ORIENTATED. ) Cognitive Function: Impaired (CONFABULATES, WHEN NO KNOWING THE ANSWER. ) Patient Appearance: Unkempt (UNSHAVEN A WEEKS GOWTH, ) Mood: Hopeful, Happy ('LACKS PLANNING, JUDGEMENT". ) Affect: Euthymic Patient Behavior: Passive, Talkative, Cooperative Speech Pattern: Rambling (LIKE TO ADD HUMOR TO SITUATION. ) Voice Loudness: Normal Thought Process: Intact, Loose Associations Thought Disorder: Not Present Hallucinations: Denies Suicidal Ideation: None, Denies, No Plan Homicidal Ideation: None, Denies, No Plan Insight/Judgement: Impaired (PASSIVE , MY DOCTOR KNOWS MEDS. THEY ARE LABELED FOR EACH DAY. 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
--- NOTE | 2018-04-13 18:24 | PN ---
Progress Note (short form) - Note Progress Note: mR Friend IS A 72YO MALE WHO IS IN HOSPITAL WITH MULTIPLE MEDICAL COMPLICATIONS ( UTO, dm, CAD, CHF INR THERAPY..) RELATED TO NON- ADHERENCE TO MEDICAL/ HEALTH/SAFETY REGIMEN. CONSULT CALLED FOR COMPETENCY TO MAKE OWN MEDICAL DECISION AND BE DISCHARGED HOME. hIS IS INPATIENT HERE AT [facility] , ASSISTED HIM IN PAST. sEE mENTAL STATUS ASSESSMENT. nO PAST PSYCH HISTORY, SMOKES CIGARS WEEKLY, DENIES ALCOHOL OR DRUGS. 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 Mr Friend currently has decisional capacity, despite denil of severity of his conditions. Possible beginning of dementia, but currently has capacity. Code(s): ITB5407 -
[2018-04-14] MEDS ORDERED: PT OWN MED DRAWER 7, Y5N ONE (03:19)
[2018-04-14] MEDS: INSULIN SLIDING SCALE (NOVOLOG) 1 VIAL SQ SCH ×4 (06:15→22:46)
[2018-04-14] MEDS: INSULIN (LEVEMIR) 100 UNITS/ML UNITS SQ SCH ×2 (06:15→17:38)
[2018-04-14 06:36] LABS: BASO % 0.8 % (0-2.0); EOS % 4.7 % (0-4.5); HEMATOCRIT 33.4 % (35.4-49); HEMOGLOBIN 11.4 GM/dL (11.7-16.9); LYMPH % 47.1 % (8-40); MCH 31.5 pg (25.7-33.7); MEAN CELL VOLUME 92.6 fl (80-96); MEAN PLT VOLUME 9.1 fl (7.5-11.1); NEUT % 37.4 % (42.8-82.8); PLATELET COUNT 284 K/MM3 (134-434); RBC 3.61 M/mm3 (4.00-5.60); WHITE BLOOD COUNT 5.6 K/mm3 (4.0-10.0)
[2018-04-14 06:44] LABS: INR 1.61 (0.82-1.09); PROTHROMBIN TIME (PATIENT) 18.2 SEC (9.7-13.0)
[2018-04-14 07:38] LABS: ANION GAP 10 (8-16); BLOOD UREA NITROGEN 20 mg/dL (7-18); CALCIUM 8.5 mg/dL (8.5-10.1); CHLORIDE 104 mmol/L (98-107); CO2 24 mmol/L (21-32); CREATININE 1.3 mg/dL (0.7-1.3); GLUCOSE,RANDOM 146 mg/dL (74-106); MAGNESIUM 1.7 mg/dL (1.8-2.4); PHOSPHOROUS 3.4 mg/dL (2.5-4.9); POTASSIUM 3.9 mmol/L (3.5-5.1); SODIUM 138 mmol/L (136-145)
[2018-04-14] MEDS: GEMFIBROZIL 600 MG TABLET (FP) PO SCH ×2 (08:09→17:39)
[2018-04-14] MEDS: HEPARIN - 25,000 UNIT in SODIUM CHLORIDE 495 ML IV SCH (08:10)
[2018-04-14] MEDS ORDERED: MAGNESIUM SULF 50% (8.12 MEQ/2 ML-1 GM VIAL) IVPB ONE (09:00)
[2018-04-14] MEDS: ASPIRIN 81 MG CHEWABLE TABLETS PO SCH (10:30)
[2018-04-14] MEDS: TAMSULOSIN HCL 0.4 MG CAP.ER.24H (FP) PO SCH (10:30)
[2018-04-14] MEDS: ISOSORBIDE MONONITRATE 30 MG TAB.SR.24H (FP) PO SCH (10:31)
[2018-04-14] MEDS: METOPROLOL TARTRATE 50 MG TABLET (FP) PO SCH ×2 (10:31→22:46)
[2018-04-14] MEDS: RANOLAZINE E.R. 500 MG TABLET (FP) PO SCH ×2 (10:31→22:46)
[2018-04-14] MEDS: RANITIDINE HCL 150 MG TABLET (FP) PO SCH (10:31)
[2018-04-14] MEDS: FLUCONAZOLE 100 MG TABLET (UD) PO SCH (10:35)
[2018-04-14] MEDS: amLODIPine BESYLATE 2.5 MG TABLET (FP) PO SCH (10:35)
[2018-04-14] MEDS ORDERED: MAGNESIUM OXIDE 400 MG TABLET (FP) PO ONE (11:40)
--- NOTE | 2018-04-14 11:54 | PN ---
Teaching Attending Note Name of Resident: Yung Damon ATTENDING PHYSICIAN STATEMENT I saw and evaluated the patient. I reviewed the resident's note and discussed the case with the resident. I agree with the resident's findings and plan as documented. SUBJECTIVE:asymptomatic. deneis CP, SOB, fever, chills, N/V/C/D OBJECTIVE: Last Vital Signs Temp Pulse Resp BP Pulse Ox 97.8 F 54 L 20 122/58 94 L 04/14/18 06:00 04/14/18 06:00 04/14/18 06:00 04/14/18 06:00 04/13/18 21:00 general NAD ASSESSMENT AND PLAN: 72 yo M with PMHx of HTN, hyperlipidemia, diabetes, atrial flutter, AFIB (on coumadin), CAD (s/p stent), past TIAs, BPH, CKD, diverticulosis, and chronic hip pain (3X broken hip) admitted with lower complicated UTI, hyperglycemia, and inability to care for at home. 1. Lower complicated UTI (H/o ESBL UTI and nephrolithiasis requiring ureteral stent and nephrostomy tube 01/2017)- clinically improved. UCx showing yeast. cont fluconazole day 3. repeat UA negative. can d/c contact precautions. ID and urology on board 2. LORY on CKD stage II (baseline 1.3-1.5) likely from retention/UTI +/- hypovolumia- now resolved. 3. Hyperglycemia-improved. cont current managment. titrate as needed.. 4. urinary retention- likely due to UTI. coughlin removed this AM. noted to be retaining in the evening. bladder scan >380. coughlin reinserted. can f/u with urology as outpatient for coughlin removal once UTI is treated 5. subtherapeutic INR-due to noncompliance. on hep-coumadin bridge. will need to monitor closely while on fluconazole. increase coumadin to 9mg. daily INR checks 6. Calf pain- now resolved. duplex neg for DVT 7. hypomagnesemia- Mg po and IV 8. CAD 9. diastolic CHF- no signs of heart failure 10. BPH 11. DVT ppx- hep/coumadin bridge 12. evaluated by psych and determined to be competent. does not want SNF placement at this time. Informed him that this may be a better transition as he is confused on his medical treatment and is not compliant. pt seems to be confused on what medications he is taking and why. at this time he is refusing.
[2018-04-14] MEDS ORDERED: INSULIN (NOVOLOG) ASPART 100 UNITS/ML 10ML VIAL ONE (12:24)
--- NOTE | 2018-04-14 13:17 | PN ---
Physical Exam: SUBJECTIVE: Patient seen and examined at bedside. No acute events. No complaints. Pt still does not seem to understand his medical situation. When asked why he's here and what is being treated, he gives vague unclear answers despite having been told on numerous occasions. OBJECTIVE: Vital Signs Period Temp Pulse Resp BP Sys/Crawford Pulse Ox Last 24 Hr 97.5 F-98.1 F 52-70 18-20 101-142/53-75 94 Gen: comfortable in bed in NAD HEENT: NCAT, EOMI Neck: supple, no jvd Cardio: extrasystoles, no murmurs/rubs/gallops appreciated Pulm: cta Abd: no tenderness, normal bs, soft Ext: 2+ pulses Laboratory Results - last 24 hr 04/13/18 04/13/18 04/13/18 06:22 16:41 21:28 WBC RBC Hgb Hct MCV MCH MCHC RDW Plt Count MPV Absolute Neuts (auto) Neutrophils % Lymphocytes % Monocytes % Eosinophils % Basophils % Nucleated RBC % PT with INR 17.20 H INR 1.52 H PTT (Actin FS) Sodium Potassium Chloride Carbon Dioxide Anion Gap BUN Creatinine POC Glucometer 301 273 Random Glucose Calcium Phosphorus Magnesium 04/14/18 04/14/18 04/14/18 05:42 06:00 06:00 WBC 5.6 RBC 3.61 L Hgb 11.4 L Hct 33.4 L MCV 92.6 MCH 31.5 MCHC 34.0 RDW 14.0 Plt Count 284 MPV 9.1 Absolute Neuts (auto) 2.1 Neutrophils % 37.4 L Lymphocytes % 47.1 H Monocytes % 10.0 Eosinophils % 4.7 H Basophils % 0.8 Nucleated RBC % 0 PT with INR INR PTT (Actin FS) 59.6 H Sodium Potassium Chloride Carbon Dioxide Anion Gap BUN Creatinine POC Glucometer 170 Random Glucose Calcium Phosphorus Magnesium 04/14/18 04/14/18 04/14/18 06:00 06:00 10:37 WBC RBC Hgb Hct MCV MCH MCHC RDW Plt Count MPV Absolute Neuts (auto) Neutrophils % Lymphocytes % Monocytes % Eosinophils % Basophils % Nucleated RBC % PT with INR 18.20 H INR 1.61 H PTT (Actin FS) Sodium 138 Potassium 3.9 Chloride 104 Carbon Dioxide 24 Anion Gap 10 BUN 20 H Creatinine 1.3 POC Glucometer 229 Random Glucose 146 H D Calcium 8.5 Phosphorus 3.4 Magnesium 1.7 L Active Medications Generic Name Dose Route Start Last Admin Trade Name Freq PRN Reason Stop Dose Admin Amlodipine Besylate 2.5 mg 04/11/18 10:00 04/14/18 10:35 Norvasc - PO 2.5 mg DAILY LONNIE Administration Aspirin 81 mg 04/12/18 10:00 04/14/18 10:30 Asa - PO 81 mg DAILY LONNIE Administration Benzocaine/Menthol 1 each 04/13/18 01:19 Cepacol Lozenge - MM PRN PRN SORE THROAT Fluconazole 200 mg 04/13/18 10:00 04/14/18 10:35 Diflucan - PO 200 mg DAILY LONNIE Administration Gemfibrozil 600 mg 04/11/18 16:30 04/14/18 08:09 Lopid - PO 600 mg BID@0700,1630 [facility] Administration Heparin Sodium (Porcine) 5,000 unit 04/11/18 06:22 04/11/18 20:26 Heparin - IVPUSH 5,000 unit PRN PRN Administration APTT LESS THAN 40 Heparin Sodium (Porcine) 1,000 unit 04/11/18 06:22 04/11/18 14:28 Heparin - IVPUSH 1,000 unit PRN PRN Administration APTT OF 40-49 Heparin Sodium (Porcine) 25, 500 mls @ 20 mls/hr 04/11/18 06:15 04/14/18 08: 10 000 unit/ Sodium Chloride IV 1,200 unit/hr TITR LONNIE 24 mls/hr Administration Protocol 1,000 UNIT/HR Insulin Aspart 1 vial 04/11/18 07:00 04/14/18 12:11 Novolog Vial Sliding Scale - SQ 4 unit ACHS [facility] Administration Protocol Insulin Detemir 20 units 04/13/18 07:56 04/14/18 06:15 Levemir Vial SQ 20 units BIDI [facility] Administration Isosorbide Mononitrate 30 mg 04/11/18 10:00 04/14/18 10:31 Imdur - PO 30 mg DAILY [facility] Administration Metoprolol Tartrate 50 mg 04/11/18 10:00 04/14/18 10:31 Lopressor - PO 50 mg BID LONN[facility] Administration Ranitidine HCl 150 mg 04/11/18 10:00 04/14/18 10:31 Zantac - PO 150 mg DAILY LONNIE Administration Ranolazine 500 mg 04/11/18 10:00 04/14/18 10:31 Ranexa - PO 500 mg BID LONNIE Administration Tamsulosin HCl 0.4 mg 04/11/18 08:30 04/14/18 10:30 Flomax - PO 0.4 mg DAILY@0830 LONN[facility] Administration Warfarin Sodium 9 mg 04/14/18 18:00 Coumadin - PO DAILY@1800 [facility] ASSESSMENT/PLAN: Pt is a 72 y/o M with PMH AF and BPH who presents to ED with urinary retention, dysuria. Pt found to have UTI and LORY. 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 repleting -DM diet #PPx -Hep ggt, coumadin #Dispo -Med/Surg -will likely need vns or snf or nh on d/c because he appears to be unable to manage his home meds on his own Yung Damon MD PGY-1 IM Visit type - Emergency Visit Emergency Visit: No - New Patient This patient is new to me today: No - Critical Care Critical Care patient: No - Discharge Referral Referred to [facility] Med P.C.: No
[2018-04-14] MEDS ORDERED: WARFARIN NA 3 MG TABLET PO SCH (18:00)
[2018-04-15 08:56] LABS: ALBUMIN 2.9 g/dl (3.4-5.0); ALK PHOS 103 U/L (45-117); ANION GAP 9 (8-16); BILIRUBIN,TOTAL 0.2 mg/dL (0.2-1.0); BLOOD UREA NITROGEN 20 mg/dL (7-18); CALCIUM 8.8 mg/dL (8.5-10.1); CHLORIDE 105 mmol/L (98-107); CO2 25 mmol/L (21-32); CREATININE 1.3 mg/dL (0.7-1.3); GLUCOSE,RANDOM 109 mg/dL (74-106); MAGNESIUM 1.9 mg/dL (1.8-2.4); PHOSPHOROUS 3.5 mg/dL (2.5-4.9); POTASSIUM 3.9 mmol/L (3.5-5.1); SGOT/AST 12 U/L (15-37); SGPT/ALT 15 U/L (12-78); SODIUM 139 mmol/L (136-145); TOT PROT 6.9 g/dl (6.4-8.2)
[2018-04-15 09:02] LABS: BASO % 0.7 % (0-2.0); EOS % 4.7 % (0-4.5); HEMATOCRIT 33.5 % (35.4-49); HEMOGLOBIN 11.3 GM/dL (11.7-16.9); LYMPH % 43.5 % (8-40); MCH 31.6 pg (25.7-33.7); MCHC 33.8 g/dl (32.0-35.9); MEAN CELL VOLUME 93.5 fl (80-96); MEAN PLT VOLUME 9.4 fl (7.5-11.1); MONO % 8.7 % (3.8-10.2); NEUT % 42.4 % (42.8-82.8); PLATELET COUNT 314 K/MM3 (134-434); RBC 3.58 M/mm3 (4.00-5.60); RDW 14.1 % (11.9-15.9); WHITE BLOOD COUNT 6.8 K/mm3 (4.0-10.0)
[2018-04-15 09:05] LABS: INR 2.4 (0.82-1.09); PROTHROMBIN TIME (PATIENT) 27.1 SEC (9.7-13.0)
[2018-04-15] MEDS: INSULIN (LEVEMIR) 100 UNITS/ML UNITS SQ SCH ×2 (10:02→17:14)
[2018-04-15] MEDS: INSULIN SLIDING SCALE (NOVOLOG) 1 VIAL SQ SCH ×4 (10:03→22:05)
[2018-04-15] MEDS: GEMFIBROZIL 600 MG TABLET (FP) PO SCH ×2 (10:03→17:14)
[2018-04-15] MEDS: TAMSULOSIN HCL 0.4 MG CAP.ER.24H (FP) PO SCH (10:09)
[2018-04-15] MEDS: RANOLAZINE E.R. 500 MG TABLET (FP) PO SCH ×2 (10:09→22:05)
[2018-04-15] MEDS: FLUCONAZOLE 100 MG TABLET (UD) PO SCH (10:09)
[2018-04-15] MEDS: RANITIDINE HCL 150 MG TABLET (FP) PO SCH (10:09)
[2018-04-15] MEDS: ASPIRIN 81 MG CHEWABLE TABLETS PO SCH (10:09)
[2018-04-15] MEDS: ISOSORBIDE MONONITRATE 30 MG TAB.SR.24H (FP) PO SCH (10:09)
[2018-04-15] MEDS: amLODIPine BESYLATE 2.5 MG TABLET (FP) PO SCH (10:10)
[2018-04-15] MEDS: HEPARIN - 25,000 UNIT in SODIUM CHLORIDE 495 ML IV SCH ×2 (10:13→22:30)
[2018-04-15] MEDS: METOPROLOL TARTRATE 25 MG TABLET (FP) PO SCH ×2 (10:15→22:05)
[2018-04-15] MEDS: HEPARIN NA (PORCINE) 5,000 UNITS/ML 1ML VIAL IVPUSH PRN (11:23)
--- NOTE | 2018-04-15 11:41 | PN ---
Teaching Attending Note Name of Resident: Yung Damon ATTENDING PHYSICIAN STATEMENT I saw and evaluated the patient. I reviewed the resident's note and discussed the case with the resident. I agree with the resident's findings and plan as documented. SUBJECTIVE:asymptomatic. denies Cp, SOB, fever, chills, N/V/C/D OBJECTIVE: Last Vital Signs Temp Pulse Resp BP Pulse Ox 97.7 F 61 20 158/67 95 04/14/18 22:00 04/14/18 22:00 04/14/18 22:00 04/14/18 22:00 04/14/18 21:00 general NAD CV S1 S2 RRR Lungs CTA B/L no wheezing/rales/rhonchi ASSESSMENT AND PLAN: 72 yo M with PMHx of HTN, hyperlipidemia, diabetes, atrial flutter, AFIB (on coumadin), CAD (s/p stent), past TIAs, BPH, CKD, diverticulosis, and chronic hip pain (3X broken hip) admitted with lower complicated UTI, hyperglycemia, and inability to care for at home. 1. Lower complicated UTI (H/o ESBL UTI and nephrolithiasis requiring ureteral stent and nephrostomy tube 01/2017)- clinically improved. UCx showing yeast. cont fluconazole day 4. repeat UA negative. can d/c contact precautions. ID and urology on board 2. LORY on CKD stage II (baseline 1.3-1.5) likely from retention/UTI +/- hypovolumia- now resolved. 3. Hyperglycemia-improved. cont current managment. titrate as needed.. 4. urinary retention- likely due to UTI. will mantain coughlin. can f/u with urology as outpatient once UTI treatment is completed. 5. subtherapeutic INR-due to noncompliance. on hep-coumadin bridge. now therapeutic. will decrease coumadin to 6mg. repeat INR tomorrow. anticipate may cont to trend up. will need very close monitoring while on fluconazole. daily INR checks 6. Calf pain- now resolved. duplex neg for DVT 7. hypomagnesemia- resolved 8. CAD 9. diastolic CHF- no signs of heart failure 10. BPH 11. DVT ppx- hep/coumadin bridge 12. will be medically optimized tomorrow. will need to d/w family if pt will be placed in facility which I agree with that the patient would benefit from. however pt is not in agreement.
--- NOTE | 2018-04-15 17:32 | PN ---
Physical Exam: SUBJECTIVE: Patient seen and examined at bedside. No acute events. No complaints. OBJECTIVE: Vital Signs Period Temp Pulse Resp BP Sys/Crawford Pulse Ox Last 24 Hr 97.2 F-97.7 F 52-61 18-20 110-158/47-67 95-95 Gen: comfortable in bed in NAD HEENT: NCAT, EOMI Neck: supple, no jvd Cardio: s1s2 no murmurs/rubs/gallops appreciated Pulm: cta Abd: no tenderness, normal bs, soft Ext: 2+ pulses, no edema Laboratory Results - last 24 hr 04/14/18 04/15/18 04/15/18 22:45 05:19 05:30 WBC RBC Hgb Hct MCV MCH MCHC RDW Plt Count MPV Absolute Neuts (auto) Neutrophils % Lymphocytes % Monocytes % Eosinophils % Basophils % Nucleated RBC % PT with INR INR PTT (Actin FS) 48.9 H Sodium Potassium Chloride Carbon Dioxide Anion Gap BUN Creatinine Creat Clearance w eGFR POC Glucometer 190 119 Random Glucose Calcium Phosphorus Magnesium Total Bilirubin AST ALT Alkaline Phosphatase Total Protein Albumin 04/15/18 04/15/18 04/15/18 05:30 06:00 06:22 WBC 6.8 RBC 3.58 L Hgb 11.3 L Hct 33.5 L MCV 93.5 MCH 31.6 MCHC 33.8 RDW 14.1 Plt Count 314 MPV 9.4 Absolute Neuts (auto) 2.9 Neutrophils % 42.4 L Lymphocytes % 43.5 H Monocytes % 8.7 Eosinophils % 4.7 H Basophils % 0.7 Nucleated RBC % 0 PT with INR 27.10 H INR 2.40 H D PTT (Actin FS) Sodium 139 Potassium 3.9 Chloride 105 Carbon Dioxide 25 Anion Gap 9 BUN 20 H Creatinine 1.3 Creat Clearance w eGFR 54.11 POC Glucometer Random Glucose 109 H D Calcium 8.8 Phosphorus 3.5 Magnesium 1.9 Total Bilirubin 0.2 AST 12 L ALT 15 Alkaline Phosphatase 103 Total Protein 6.9 Albumin 2.9 L 04/15/18 11:22 WBC RBC Hgb Hct MCV MCH MCHC RDW Plt Count MPV Absolute Neuts (auto) Neutrophils % Lymphocytes % Monocytes % Eosinophils % Basophils % Nucleated RBC % PT with INR INR PTT (Actin FS) Sodium Potassium Chloride Carbon Dioxide Anion Gap BUN Creatinine Creat Clearance w eGFR POC Glucometer 202 Random Glucose Calcium Phosphorus Magnesium Total Bilirubin AST ALT Alkaline Phosphatase Total Protein Albumin Active Medications Generic Name Dose Route Start Last Admin Trade Name Freq PRN Reason Stop Dose Admin Amlodipine Besylate 2.5 mg 04/11/18 10:00 04/15/18 10:10 Norvasc - PO 2.5 mg DAILY LONNIE Administration Aspirin 81 mg 04/12/18 10:00 04/15/18 10:09 Asa - PO 81 mg DAILY LONNIE Administration Benzocaine/Menthol 1 each 04/13/18 01:19 Cepacol Lozenge - MM PRN PRN SORE THROAT Fluconazole 200 mg 04/13/18 10:00 04/15/18 10:09 Diflucan - PO 200 mg DAILY LONNIE Administration Gemfibrozil 600 mg 04/11/18 16:30 04/15/18 17:14 Lopid - PO 600 mg BID@0700,1630 L[facility] Administration Heparin Sodium (Porcine) 5,000 unit 04/11/18 06:22 04/11/18 20:26 Heparin - IVPUSH 5,000 unit PRN PRN Administration APTT LESS THAN 40 Heparin Sodium (Porcine) 1,000 unit 04/11/18 06:22 04/15/18 11:23 Heparin - IVPUSH 1,000 unit PRN PRN Administration APTT OF 40-49 Heparin Sodium (Porcine) 25, 500 mls @ 20 mls/hr 04/11/18 06:15 04/15/18 11: 23 000 unit/ Sodium Chloride IV 1,300 unit/hr TITR LONNIE 26 mls/hr Titration Protocol 1,000 UNIT/HR Insulin Aspart 1 vial 04/11/18 07:00 04/15/18 17:14 Novolog Vial Sliding Scale - SQ 2 unit ACHS [facility] Administration Protocol Insulin Detemir 20 units 04/13/18 07:56 04/15/18 17:14 Levemir Vial SQ 20 units BIDI [facility] Administration Isosorbide Mononitrate 30 mg 04/11/18 10:00 04/15/18 10:09 Imdur - PO 30 mg DAILY [facility] Administration Metoprolol Tartrate 25 mg 04/15/18 09:09 04/15/18 10:15 Lopressor - PO 25 mg BID [facility] Administration Ranitidine HCl 150 mg 04/11/18 10:00 04/15/18 10:09 Zantac - PO 150 mg DAILY LONNIE Administration Ranolazine 500 mg 04/11/18 10:00 04/15/18 10:09 Ranexa - PO 500 mg BID LONNIE Administration Tamsulosin HCl 0.4 mg 04/11/18 08:30 04/15/18 10:09 Flomax - PO 0.4 mg DAILY@0830 L[facility] Administration Warfarin Sodium 6 mg 04/15/18 18:00 04/15/18 17:14 Coumadin - PO 6 mg DAILY@1800 LON[facility] Administration ASSESSMENT/PLAN: Pt is a 72 y/o M with PMH AF and BPH who presents to ED with urinary retention, dysuria. Pt found to have UTI and LORY. 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 Med P.C.: No
[2018-04-15] MEDS ORDERED: WARFARIN NA 3 MG TABLET PO SCH (18:00)
[2018-04-16] MEDS: INSULIN (LEVEMIR) 100 UNITS/ML UNITS SQ SCH ×2 (06:44→16:30)
[2018-04-16] MEDS: HEPARIN - 25,000 UNIT in SODIUM CHLORIDE 495 ML IV SCH (06:44)
[2018-04-16] MEDS: GEMFIBROZIL 600 MG TABLET (FP) PO SCH ×2 (06:44→16:31)
[2018-04-16] MEDS: INSULIN SLIDING SCALE (NOVOLOG) 1 VIAL SQ SCH ×4 (06:45→22:55)
[2018-04-16 07:36] LABS: HEMOGLOBIN 11.8 GM/dL (11.7-16.9); MCH 31.5 pg (25.7-33.7); MCHC 33.7 g/dl (32.0-35.9); MEAN CELL VOLUME 93.6 fl (80-96); MEAN PLT VOLUME 9.5 fl (7.5-11.1); PLATELET COUNT 352 K/MM3 (134-434); PROTHROMBIN TIME (PATIENT) 46.8 SEC (9.7-13.0); RBC 3.73 M/mm3 (4.00-5.60); RDW 14.4 % (11.9-15.9); WHITE BLOOD COUNT 5.3 K/mm3 (4.0-10.0)
[2018-04-16 07:43] LABS: CHLORIDE 105 mmol/L (98-107); SODIUM 138 mmol/L (136-145)
[2018-04-16 07:50] LABS: INR 4.14 (0.82-1.09)
[2018-04-16 07:54] LABS: ANION GAP 10 (8-16); BLOOD UREA NITROGEN 21 mg/dL (7-18); CO2 23 mmol/L (21-32); CREATININE 1.3 mg/dL (0.7-1.3); GLUCOSE,RANDOM 130 mg/dL (74-106)
--- NOTE | 2018-04-16 08:11 | PN ---
Physical Exam: SUBJECTIVE: Patient seen and examined. Pt seated in a chair at bedside. Does not know his goal INR or any of his medication doses. Does not remember discussing it yesterday. OBJECTIVE: Vital Signs Period Temp Pulse Resp BP Sys/Crawford Pulse Ox Last 24 Hr 97.2 F-97.8 F 52-63 18-20 110-145/47-79 95-95 Gen: comfortable in chair in NAD HEENT: NCAT, EOMI Neck: supple, no jvd Cardio: s1s2 no murmurs/rubs/gallops appreciated Pulm: cta Abd: no tenderness, normal bs, soft Ext: 2+ pulses, no edema Laboratory Results - last 24 hr 04/15/18 04/15/18 04/15/18 05:19 05:30 05:30 WBC RBC Hgb Hct MCV MCH MCHC RDW Plt Count MPV Absolute Neuts (auto) Neutrophils % Lymphocytes % Monocytes % Eosinophils % Basophils % Nucleated RBC % PT with INR 27.10 H INR 2.40 H D PTT (Actin FS) 48.9 H Sodium Potassium Chloride Carbon Dioxide Anion Gap BUN Creatinine Creat Clearance w eGFR POC Glucometer 119 Random Glucose Calcium Phosphorus Magnesium Total Bilirubin AST ALT Alkaline Phosphatase Total Protein Albumin 04/15/18 04/15/18 04/15/18 06:00 06:22 11:22 WBC 6.8 RBC 3.58 L Hgb 11.3 L Hct 33.5 L MCV 93.5 MCH 31.6 MCHC 33.8 RDW 14.1 Plt Count 314 MPV 9.4 Absolute Neuts (auto) 2.9 Neutrophils % 42.4 L Lymphocytes % 43.5 H Monocytes % 8.7 Eosinophils % 4.7 H Basophils % 0.7 Nucleated RBC % 0 PT with INR INR PTT (Actin FS) Sodium 139 Potassium 3.9 Chloride 105 Carbon Dioxide 25 Anion Gap 9 BUN 20 H Creatinine 1.3 Creat Clearance w eGFR 54.11 POC Glucometer 202 Random Glucose 109 H D Calcium 8.8 Phosphorus 3.5 Magnesium 1.9 Total Bilirubin 0.2 AST 12 L ALT 15 Alkaline Phosphatase 103 Total Protein 6.9 Albumin 2.9 L 04/15/18 04/15/18 04/15/18 17:12 18:00 21:50 WBC RBC Hgb Hct MCV MCH MCHC RDW Plt Count MPV Absolute Neuts (auto) Neutrophils % Lymphocytes % Monocytes % Eosinophils % Basophils % Nucleated RBC % PT with INR INR PTT (Actin FS) 78.9 H D Sodium Potassium Chloride Carbon Dioxide Anion Gap BUN Creatinine Creat Clearance w eGFR POC Glucometer 165 234 Random Glucose Calcium Phosphorus Magnesium Total Bilirubin AST ALT Alkaline Phosphatase Total Protein Albumin 04/16/18 04/16/18 04/16/18 06:00 06:00 06:00 WBC 5.3 RBC 3.73 L Hgb 11.8 Hct 35.0 L MCV 93.6 MCH 31.5 MCHC 33.7 RDW 14.4 Plt Count 352 MPV 9.5 Absolute Neuts (auto) Neutrophils % Lymphocytes % Monocytes % Eosinophils % Basophils % Nucleated RBC % PT with INR 46.80 H INR 4.14 H* D PTT (Actin FS) 81.0 H Sodium Potassium Chloride Carbon Dioxide Anion Gap BUN Creatinine Creat Clearance w eGFR POC Glucometer Random Glucose Calcium Phosphorus Magnesium Total Bilirubin AST ALT Alkaline Phosphatase Total Protein Albumin 04/16/18 06:41 WBC RBC Hgb Hct MCV MCH MCHC RDW Plt Count MPV Absolute Neuts (auto) Neutrophils % Lymphocytes % Monocytes % Eosinophils % Basophils % Nucleated RBC % PT with INR INR PTT (Actin FS) Sodium Potassium Chloride Carbon Dioxide Anion Gap BUN Creatinine Creat Clearance w eGFR POC Glucometer 135 Random Glucose Calcium Phosphorus Magnesium Total Bilirubin AST ALT Alkaline Phosphatase Total Protein Albumin Active Medications Generic Name Dose Route Start Last Admin Trade Name Freq PRN Reason Stop Dose Admin Amlodipine Besylate 2.5 mg 04/11/18 10:00 04/15/18 10:10 Norvasc - PO 2.5 mg DAILY LONNIE Administration Aspirin 81 mg 04/12/18 10:00 04/15/18 10:09 Asa - PO 81 mg DAILY LONNIE Administration Benzocaine/Menthol 1 each 04/13/18 01:19 Cepacol Lozenge - MM PRN PRN SORE THROAT Fluconazole 200 mg 04/13/18 10:00 04/15/18 10:09 Diflucan - PO 200 mg DAILY LONNIE Administration Gemfibrozil 600 mg 04/11/18 16:30 04/16/18 06:44 Lopid - PO 600 mg BID@0700,1630 [facility] Administration Heparin Sodium (Porcine) 5,000 unit 04/11/18 06:22 04/11/18 20:26 Heparin - IVPUSH 5,000 unit PRN PRN Administration APTT LESS THAN 40 Heparin Sodium (Porcine) 1,000 unit 04/11/18 06:22 04/15/18 11:23 Heparin - IVPUSH 1,000 unit PRN PRN Administration APTT OF 40-49 Heparin Sodium (Porcine) 25, 500 mls @ 20 mls/hr 04/11/18 06:15 04/16/18 06: 44 000 unit/ Sodium Chloride IV Not Given TITR LONNIE Protocol 1,000 UNIT/HR Insulin Aspart 1 vial 04/11/18 07:00 04/16/18 06:45 Novolog Vial Sliding Scale - SQ Not Given ACHS [facility] Protocol Insulin Detemir 20 units 04/13/18 07:56 04/16/18 06:44 Levemir Vial SQ 20 units BIDI LONNIE Administration Isosorbide Mononitrate 30 mg 04/11/18 10:00 04/15/18 10:09 Imdur - PO 30 mg DAILY LONNIE Administration Metoprolol Tartrate 25 mg 04/15/18 09:09 04/15/18 22:05 Lopressor - PO 25 mg BID LONNIE Administration Ranitidine HCl 150 mg 04/11/18 10:00 04/15/18 10:09 Zantac - PO 150 mg DAILY LONNIE Administration Ranolazine 500 mg 04/11/18 10:00 04/15/18 22:05 Ranexa - PO 500 mg BID LONNIE Administration Tamsulosin HCl 0.4 mg 04/11/18 08:30 04/15/18 10:09 Flomax - PO 0.4 mg DAILY@0830 LONNIE Administration ASSESSMENT/PLAN: Pt is a 72 y/o M with PMH AF and BPH who presents to ED with urinary retention, dysuria. Pt found to have UTI and LORY. 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 Note: spoke at length with pt's sister today regarding pt's discharge. She mentioned that she works in health care and understands the process. States pt' s home is being fumigated for bed bugs. I explained that the hospital's rehabilitation caseworker would work with pt's family to find a safe place for him to go, but he cannot be kept indefinitely in the hospital without any medical cause. She verbalized understanding. Yung Damon MD PGY-1 IM Visit type - Emergency Visit Emergency Visit: No - New Patient This patient is new to me today: No - Critical Care Critical Care patient: No - Discharge Referral Referred to [facility] Med P.C.: No
[2018-04-16] MEDS: TAMSULOSIN HCL 0.4 MG CAP.ER.24H (FP) PO SCH (08:54)
[2018-04-16] MEDS: RANITIDINE HCL 150 MG TABLET (FP) PO SCH (09:00)
[2018-04-16] MEDS: METOPROLOL TARTRATE 25 MG TABLET (FP) PO SCH ×2 (09:00→22:55)
[2018-04-16] MEDS: RANOLAZINE E.R. 500 MG TABLET (FP) PO SCH ×2 (09:00→22:55)
[2018-04-16] MEDS: ASPIRIN 81 MG CHEWABLE TABLETS PO SCH (09:00)
[2018-04-16] MEDS: amLODIPine BESYLATE 2.5 MG TABLET (FP) PO SCH (09:00)
[2018-04-16] MEDS: ISOSORBIDE MONONITRATE 30 MG TAB.SR.24H (FP) PO SCH (09:00)
[2018-04-16] MEDS: FLUCONAZOLE 100 MG TABLET (UD) PO SCH (09:00)
--- NOTE | 2018-04-16 12:03 | PN ---
Teaching Attending Note Name of Resident: Yung Damon ATTENDING PHYSICIAN STATEMENT I saw and evaluated the patient. I reviewed the resident's note and discussed the case with the resident. I agree with the resident's findings and plan as documented. SUBJECTIVE:asymptomatic. denies Cp, SOB, fever, chills, N/V/C/D OBJECTIVE: Last Vital Signs Temp Pulse Resp BP Pulse Ox 98 F 60 18 151/68 97 04/16/18 09:00 04/16/18 09:00 04/16/18 09:00 04/16/18 09:00 04/16/18 09:00 general NAD CV S1 S2 RRR Lungs CTA B/L no wheezing/rales/rhonchi ASSESSMENT AND PLAN: 72 yo M with PMHx of HTN, hyperlipidemia, diabetes, atrial flutter, AFIB (on coumadin), CAD (s/p stent), past TIAs, BPH, CKD, diverticulosis, and chronic hip pain (3X broken hip) admitted with lower complicated UTI, hyperglycemia, and inability to care for at home. 1. Lower complicated UTI (H/o ESBL UTI and nephrolithiasis requiring ureteral stent and nephrostomy tube 01/2017)- clinically improved. UCx showing yeast. cont fluconazole day 5. repeat UA negative. can d/c contact precautions. ID and urology on board 2. LORY on CKD stage II (baseline 1.3-1.5) likely from retention/UTI +/- hypovolumia- now resolved. 3. Hyperglycemia-improved. cont current managment. titrate as needed.. 4. urinary retention- likely due to UTI. will mantain coughlin. can f/u with urology as outpatient once UTI treatment is completed. 5. subtherapeutic INR-due to noncompliance. on hep-coumadin bridge. now supratherapeutic. d/c hep ggt. hold coumadin today. repeat INR tomorrow.will need very close monitoring while on fluconazole. daily INR checks 6. Calf pain- now resolved. duplex neg for DVT 7. hypomagnesemia- resolved 8. CAD 9. diastolic CHF- no signs of heart failure 10. BPH 11. DVT ppx- coumadin 12.concern of compliance by patient on discharge. pt will be unable to follow for INR checks over the weekend. will keep patient until INR is stable. will speak with family about pending discharge home once this is achieved. pt does not have SNF benefits. family requesting placement at [place] however no beds available. will set up VNS on discharge
--- NOTE | 2018-04-16 15:23 | PN ---
Progress Note, Physician History of Present Illness: Awake, alert OOB in chair [place] catheter in place No c/o fever/ chills - Current Medication List Current Medications: Active Medications Amlodipine Besylate (Norvasc -) 2.5 mg PO DAILY [facility] Last Admin: 04/16/18 09:00 Dose: 2.5 mg Aspirin (Asa -) 81 mg PO DAILY [facility] Last Admin: 04/16/18 09:00 Dose: 81 mg Benzocaine/Menthol (Cepacol Lozenge -) 1 each MM PRN PRN PRN Reason: SORE THROAT Fluconazole (Diflucan -) 200 mg PO DAILY [facility] Last Admin: 04/16/18 09:00 Dose: 200 mg Gemfibrozil (Lopid -) 600 mg PO BID@0700,1630 [facility] Last Admin: 04/16/18 06:44 Dose: 600 mg Insulin Aspart (Novolog Vial Sliding Scale -) 1 vial SQ [facility]; Protocol Last Admin: 04/16/18 11:26 Dose: 6 unit Insulin Detemir (Levemir Vial) 20 units SQ BIDI [facility] Last Admin: 04/16/18 06:44 Dose: 20 units Isosorbide Mononitrate (Imdur -) 30 mg PO DAILY [facility] Last Admin: 04/16/18 09:00 Dose: 30 mg Metoprolol Tartrate (Lopressor -) 25 mg PO BID [facility] Last Admin: 04/16/18 09:00 Dose: 25 mg Ranitidine HCl (Zantac -) 150 mg PO DAILY [facility] Last Admin: 04/16/18 09:00 Dose: 150 mg Ranolazine (Ranexa -) 500 mg PO BID [facility] Last Admin: 04/16/18 09:00 Dose: 500 mg Tamsulosin HCl (Flomax -) 0.4 mg PO DAILY@0830 [facility] Last Admin: 04/16/18 08:54 Dose: 0.4 mg - Objective Vital Signs: Vital Signs Temperature 97.6 F 04/16/18 14:01 Pulse Rate 61 04/16/18 14:01 Respiratory Rate 16 04/16/18 14:01 Blood Pressure 127/73 04/16/18 14:01 O2 Sat by Pulse Oximetry (%) 97 04/16/18 09:00 Constitutional: Yes: No Distress Cardiovascular: Yes: Regular Rate and Rhythm, S1, S2 Respiratory: Yes: CTA Bilaterally Gastrointestinal: Yes: Normal Bowel Sounds, Soft. No: Tenderness Edema: No Labs: CBC, BMP 04/16/18 06:00 04/16/18 06:00 INR, PTT INR 4.14 (0.82-1.09) H* D 04/16/18 06:00 Assessment/Plan Fungal cystitis Coagulopathy ? fluconazole Day #5 fluconazole D/C , observe
[2018-04-17] MEDS: INSULIN SLIDING SCALE (NOVOLOG) 1 VIAL SQ SCH ×4 (06:28→22:41)
[2018-04-17] MEDS: INSULIN (LEVEMIR) 100 UNITS/ML UNITS SQ SCH ×2 (06:28→17:27)
[2018-04-17] MEDS: GEMFIBROZIL 600 MG TABLET (FP) PO SCH ×2 (06:28→17:27)
[2018-04-17 07:21] LABS: HEMATOCRIT 35.8 % (35.4-49); HEMOGLOBIN 12.1 GM/dL (11.7-16.9); MCH 31.7 pg (25.7-33.7); MCHC 33.9 g/dl (32.0-35.9); MEAN CELL VOLUME 93.3 fl (80-96); MEAN PLT VOLUME 8.8 fl (7.5-11.1); PLATELET COUNT 350 K/MM3 (134-434); RBC 3.84 M/mm3 (4.00-5.60); RDW 14.2 % (11.9-15.9); WHITE BLOOD COUNT 5.4 K/mm3 (4.0-10.0)
[2018-04-17 07:51] LABS: PROTHROMBIN TIME (PATIENT) 47.1 SEC (9.7-13.0)
[2018-04-17 07:58] LABS: INR 4.17 (0.82-1.09)
[2018-04-17] MEDS: TAMSULOSIN HCL 0.4 MG CAP.ER.24H (FP) PO SCH (09:35)
[2018-04-17] MEDS: amLODIPine BESYLATE 2.5 MG TABLET (FP) PO SCH (09:36)
[2018-04-17] MEDS: RANITIDINE HCL 150 MG TABLET (FP) PO SCH (09:36)
[2018-04-17] MEDS: RANOLAZINE E.R. 500 MG TABLET (FP) PO SCH ×2 (09:36→22:41)
[2018-04-17] MEDS: ASPIRIN 81 MG CHEWABLE TABLETS PO SCH (09:36)
[2018-04-17] MEDS: METOPROLOL TARTRATE 25 MG TABLET (FP) PO SCH ×2 (09:36→22:41)
[2018-04-17] MEDS: ISOSORBIDE MONONITRATE 30 MG TAB.SR.24H (FP) PO SCH (09:36)
--- NOTE | 2018-04-17 12:12 | PN ---
Progress Note (short form) - Note Progress Note: asymptomatic. denies CP, SOB, fever, chills, N/V/C/D Current Medications Generic Name Dose Route Start Last Admin Trade Name Jake PRN Reason Stop Dose Admin Amlodipine Besylate 2.5 mg 04/11/18 10:00 04/17/18 09:36 Norvasc - PO 2.5 mg DAILY LONNIE Administration Aspirin 81 mg 04/12/18 10:00 04/17/18 09:36 Asa - PO 81 mg DAILY LONNIE Administration Benzocaine/Menthol 1 each 04/13/18 01:19 Cepacol Lozenge - MM PRN PRN SORE THROAT Gemfibrozil 600 mg 04/11/18 16:30 04/17/18 06:28 Lopid - PO 600 mg BID@0700,1630 LONNIE Administration Insulin Aspart 1 vial 04/11/18 07:00 04/17/18 11:46 Novolog Vial Sliding Scale - SQ Not Given ACHS [facility] Protocol Insulin Detemir 20 units 04/13/18 07:56 04/17/18 06:28 Levemir Vial SQ 20 units BIDI LONNIE Administration Isosorbide Mononitrate 30 mg 04/11/18 10:00 04/17/18 09:36 Imdur - PO 30 mg DAILY LONNIE Administration Metoprolol Tartrate 25 mg 04/15/18 09:09 04/17/18 09:36 Lopressor - PO 25 mg BID LONNIE Administration Ranitidine HCl 150 mg 04/11/18 10:00 04/17/18 09:36 Zantac - PO 150 mg DAILY LONNIE Administration Ranolazine 500 mg 04/11/18 10:00 04/17/18 09:36 Ranexa - PO 500 mg BID LONNIE Administration Tamsulosin HCl 0.4 mg 04/11/18 08:30 04/17/18 09:35 Flomax - PO 0.4 mg DAILY@0830 LONNIE Administration Last Vital Signs Temp Pulse Resp BP Pulse Ox 97.7 F 50 L 20 139/38 96 04/17/18 06:00 04/17/18 06:00 04/17/18 10:00 04/17/18 06:00 04/17/18 10:00 general NAD CV S1 S2 RRR Lungs CTA B/L no wheezing/rales/rhonchi CBCD WBC 5.4 K/mm3 (4.0-10.0) 04/17/18 06:00 RBC 3.84 M/mm3 (4.00-5.60) L 04/17/18 06:00 Hgb 12.1 GM/dL (11.7-16.9) 04/17/18 06:00 Hct 35.8 % (35.4-49) 04/17/18 06:00 MCV 93.3 fl (80-96) 04/17/18 06:00 MCHC 33.9 g/dl (32.0-35.9) 04/17/18 06:00 RDW 14.2 % (11.9-15.9) 04/17/18 06:00 Plt Count 350 K/MM3 (134-434) 04/17/18 06:00 MPV 8.8 fl (7.5-11.1) 04/17/18 06:00 ASSESSMENT AND PLAN: 72 yo M with PMHx of HTN, hyperlipidemia, diabetes, atrial flutter, AFIB (on coumadin), CAD (s/p stent), past TIAs, BPH, CKD, diverticulosis, and chronic hip pain (3X broken hip) admitted with lower complicated UTI, hyperglycemia, and inability to care for at home. 1. Lower complicated UTI (H/o ESBL UTI and nephrolithiasis requiring ureteral stent and nephrostomy tube 01/2017)- clinically improved. UCx showing yeast. cont fluconazole day 6. repeat UA negative. can d/c contact precautions. ID and urology on board 2. LORY on CKD stage II (baseline 1.3-1.5) likely from retention/UTI +/- hypovolumia- now resolved. 3. Hyperglycemia-improved. cont current managment. titrate as needed.. 4. urinary retention- likely due to UTI. will mantain coughlin. can f/u with urology as outpatient once UTI treatment is completed. 5. subtherapeutic INR-due to noncompliance. now supratherapeutic. hold coumadin. will need very close monitoring while on fluconazole. daily INR checks 6. Calf pain- now resolved. duplex neg for DVT 7. hypomagnesemia- resolved 8. CAD 9. diastolic CHF- no signs of heart failure 10. BPH 11. DVT ppx- coumadin 12.concern of compliance by patient on discharge. pt will not be amenable for daily INR checks. Visit type - Emergency Visit Emergency Visit: Yes ED Registration Date: 04/10/18 Care time: The patient presented to the Emergency Department on the above date and was hospitalized for further evaluation of their emergent condition. - New Patient This patient is new to me today: No - Critical Care Critical Care patient: No - Discharge Referral [facility]erred [facility] Med P.C.: No
[2018-04-18] MEDS: INSULIN (LEVEMIR) 100 UNITS/ML UNITS SQ SCH ×2 (05:59→16:42)
[2018-04-18] MEDS: INSULIN SLIDING SCALE (NOVOLOG) 1 VIAL SQ SCH ×3 (06:00→16:43)
[2018-04-18] MEDS: GEMFIBROZIL 600 MG TABLET (FP) PO SCH ×2 (06:00→16:42)
[2018-04-18 08:03] LABS: INR 2.76 (0.82-1.09); PROTHROMBIN TIME (PATIENT) 31.2 SEC (9.7-13.0)
[2018-04-18] MEDS: RANITIDINE HCL 150 MG TABLET (FP) PO SCH (09:17)
[2018-04-18] MEDS: METOPROLOL TARTRATE 25 MG TABLET (FP) PO SCH (09:17)
[2018-04-18] MEDS: amLODIPine BESYLATE 2.5 MG TABLET (FP) PO SCH (09:17)
[2018-04-18] MEDS: TAMSULOSIN HCL 0.4 MG CAP.ER.24H (FP) PO SCH (09:17)
[2018-04-18] MEDS: ASPIRIN 81 MG CHEWABLE TABLETS PO SCH (09:17)
[2018-04-18] MEDS: ISOSORBIDE MONONITRATE 30 MG TAB.SR.24H (FP) PO SCH (09:17)
[2018-04-18] MEDS: RANOLAZINE E.R. 500 MG TABLET (FP) PO SCH (09:18)
--- NOTE | 2018-04-18 10:01 | PN ---
Physical Exam: SUBJECTIVE: Patient seen and examined at bedside. Pt's coughlin stopped draining this morning despite several attempts to flush it by the nurse. Bladder scan was >1L. Coughlin was removed, and pt voided 300 cc hematuria. New coughlin was placed and is draining clear yellow urine. Pt complains of pressure in the lower abdomen from having a full bladder. OBJECTIVE: Vital Signs Period Temp Pulse Resp BP Sys/Crawford Pulse Ox Last 24 Hr 97.8 F-98.6 F 55-65 18-20 106-139/48-82 94-96 Gen: comfortable in chair in NAD HEENT: NCAT, EOMI Neck: supple, no jvd Cardio: s1s2 no murmurs/rubs/gallops appreciated Pulm: cta Abd: nontender, normal bs, soft Ext: 2+ pulses, no edema Laboratory Results - last 24 hr 04/17/18 04/17/18 04/17/18 11:43 17:22 22:40 PT with INR INR POC Glucometer 181 194 247 04/18/18 04/18/18 05:55 06:10 PT with INR 31.20 H INR 2.76 H D POC Glucometer 125 Active Medications Generic Name Dose Route Start Last Admin Trade Name Freq PRN Reason Stop Dose Admin Amlodipine Besylate 2.5 mg 04/11/18 10:00 04/18/18 09:17 Norvasc - PO 2.5 mg DAILY LONNIE Administration Aspirin 81 mg 04/12/18 10:00 04/18/18 09:17 Asa - PO 81 mg DAILY LONNIE Administration Benzocaine/Menthol 1 each 04/13/18 01:19 Cepacol Lozenge - MM PRN PRN SORE THROAT Gemfibrozil 600 mg 04/11/18 16:30 04/18/18 06:00 Lopid - PO 600 mg BID@0700,1630 LONNIE Administration Insulin Aspart 1 vial 04/11/18 07:00 04/18/18 06:00 Novolog Vial Sliding Scale - SQ Not Given [facility] Protocol Insulin Detemir 20 units 04/13/18 07:56 04/18/18 05:59 Levemir Vial SQ 20 units BIDI LONNIE Administration Isosorbide Mononitrate 30 mg 04/11/18 10:00 04/18/18 09:17 Imdur - PO 30 mg DAILY LONNEI Administration Metoprolol Tartrate 25 mg 04/15/18 09:09 04/18/18 09:17 Lopressor - PO 25 mg BID LONNIE Administration Ranitidine HCl 150 mg 04/11/18 10:00 04/18/18 09:17 Zantac - PO 150 mg DAILY LONNIE Administration Ranolazine 500 mg 04/11/18 10:00 04/18/18 09:18 Ranexa - PO 500 mg BID LONNIE Administration Tamsulosin HCl 0.4 mg 04/11/18 08:30 04/18/18 09:17 Flomax - PO 0.4 mg DAILY@0830 LONNIE Administration ASSESSMENT/PLAN: Pt is a 72 y/o M with PMH AF and BPH who presents to ED with urinary retention, dysuria. Pt found to have UTI and LORY. #UTI -LE 3, WBC 1848, isabella 190 on admission -likely 2/2 retention -no leukocytosis -rocephin in ED -UCx pos for fungal - fluconazole by ID #Retention -likely 2/2 BPH and/or med noncompliance -initially straight cath yielded approx 300 cc -Flomax -monitor -Urology consulted in ED -Coughlin clogged with blood clots this am and was d/c'ed. Bladder scan was > 1L. Pt voided 300 ml hematuria. New coughlin was placed and drained 800 ml. -Coughlin draining nicely at this time. clear yellow -Will likely be discharged with coughlin #DM -BGM ACHS -Levemir -ISS #pAfib -on Hep ggt coumadin bridge- -INR therapeutic -restart Coumadin this evening #LORY: RESOLVED -likely 2/2 retention -initial [employer] 1.8 from baseline 1.3-1.5 (earlier this year) #FEN -NS -lytes wnl -DM diet #PPx -Hep ggt, coumadin #Dispo -Med/Surg -will likely need vns or snf or nh on d/c because he appears to be unable to manage his home meds on his own -Plan for D/C on Mon. Yung Damon MD PGY-1 IM Visit type - Emergency Visit Emergency Visit: No - New Patient This patient is new to me today: No - Critical Care Critical Care patient: No - Discharge Referral Referred to [facility] Med P.C.: No
[2018-04-18 11:06] LABS: BASO % 0.8 % (0-2.0); EOS % 3.1 % (0-4.5); HEMATOCRIT 38.2 % (35.4-49); HEMOGLOBIN 12.8 GM/dL (11.7-16.9); LYMPH % 38.5 % (8-40); MCH 31.3 pg (25.7-33.7); MCHC 33.4 g/dl (32.0-35.9); MEAN CELL VOLUME 93.6 fl (80-96); MEAN PLT VOLUME 9.6 fl (7.5-11.1); MONO % 12.6 % (3.8-10.2); PLATELET COUNT 392 K/MM3 (134-434); RBC 4.08 M/mm3 (4.00-5.60); RDW 14.4 % (11.9-15.9); WHITE BLOOD COUNT 6.6 K/mm3 (4.0-10.0)
--- NOTE | 2018-04-18 11:26 | PN ---
Teaching Attending Note Name of Resident: Yung Damon ATTENDING PHYSICIAN STATEMENT I saw and evaluated the patient. I reviewed the resident's note and discussed the case with the resident. I agree with the resident's findings and plan as documented. SUBJECTIVE:currently asymptomatic. suprapubic discomfort resolved. developed clots overnight in the coughlin and was not draining. coughlin was removed and re-inserted with 600cc urine output, Urine is now draining clear OBJECTIVE: Last Vital Signs Temp Pulse Resp BP Pulse Ox 97.8 F 78 20 119/56 97 04/18/18 10:00 04/18/18 10:00 04/18/18 10:04/18/18 10:04/18/18 09:00 General NAD abdomen soft NT/ND no suprapubic pain or distention ASSESSMENT AND PLAN: 72 yo M with PMHx of HTN, hyperlipidemia, diabetes, atrial flutter, AFIB (on coumadin), CAD (s/p stent), past TIAs, BPH, CKD, diverticulosis, and chronic hip pain (3X broken hip) admitted with lower complicated UTI, hyperglycemia, and inability to care for at home. 1. Lower complicated UTI (H/o ESBL UTI and nephrolithiasis requiring ureteral stent and nephrostomy tube 01/2017)- clinically improved. UCx showing yeast. cont fluconazole day 7. repeat UA negative. can d/c contact precautions. ID and urology on board 2. hematuria- developed overnight, lilkely due to coughlin trauma. coughlin re- inserted and urine is now draining clear. Hgb is stable will monitor 3. LORY on CKD stage II (baseline 1.3-1.5) likely from retention/UTI +/- hypovolumia- now resolved. 4. Hyperglycemia-improved. cont current managment. titrate as needed.. 5. urinary retention- likely due to UTI. will mantain coughlin. can f/u with urology as outpatient once UTI treatment is completed. 6. subtherapeutic INR-due to noncompliance. now therapeutic. will resume coumadin at 6mg. will need very close monitoring while on fluconazole. daily INR checks 7. Calf pain- now resolved. duplex neg for DVT 8. hypomagnesemia- resolved 9. CAD 10. diastolic CHF- no signs of heart failure 11. BPH 12. DVT ppx- coumadin 13.concern of compliance by patient on discharge. plan for d/c tomorrow.
[2018-04-18] MEDS ORDERED: PT OWN MED DRAWER 7, Y5N ONE (14:59)
[2018-04-18] MEDS: WARFARIN NA 3 MG TABLET PO SCH (18:28)
[2018-04-19] MEDS: RANOLAZINE E.R. 500 MG TABLET (FP) PO SCH ×3 (02:54→21:07)
[2018-04-19] MEDS: METOPROLOL TARTRATE 25 MG TABLET (FP) PO SCH ×3 (02:54→21:07)
[2018-04-19] MEDS: INSULIN SLIDING SCALE (NOVOLOG) 1 VIAL SQ SCH ×5 (02:55→21:07)
[2018-04-19] MEDS: GEMFIBROZIL 600 MG TABLET (FP) PO SCH ×2 (06:54→17:09)
[2018-04-19] MEDS: INSULIN (LEVEMIR) 100 UNITS/ML UNITS SQ SCH ×2 (06:55→17:09)
[2018-04-19] MEDS ORDERED: INSULIN (NOVOLOG) ASPART 100 UNITS/ML 10ML VIAL ONE ×3 (07:14→21:06)
[2018-04-19] MEDS ORDERED: INSULIN (LEVEMIR) 100 UNITS/ML UNITS SQ ONE (07:14)
[2018-04-19 08:13] LABS: INR 2.18 (0.82-1.09); PROTHROMBIN TIME (PATIENT) 24.6 SEC (9.7-13.0)
[2018-04-19] MEDS: TAMSULOSIN HCL 0.4 MG CAP.ER.24H (FP) PO SCH (08:38)
[2018-04-19] MEDS: RANITIDINE HCL 150 MG TABLET (FP) PO SCH (10:15)
[2018-04-19] MEDS: ISOSORBIDE MONONITRATE 30 MG TAB.SR.24H (FP) PO SCH (10:16)
[2018-04-19] MEDS: ASPIRIN 81 MG CHEWABLE TABLETS PO SCH (10:16)
[2018-04-19] MEDS: amLODIPine BESYLATE 2.5 MG TABLET (FP) PO SCH (10:16)
--- NOTE | 2018-04-19 13:05 | PN ---
Teaching Attending Note Name of Resident: Yung Damon ATTENDING PHYSICIAN STATEMENT I saw and evaluated the patient. I reviewed the resident's note and discussed the case with the resident. I agree with the resident's findings and plan as documented. SUBJECTIVE:c/o abdominal pain, been progressively worsening since this morning. denies Cp, SOB, fever, chills bladder scan done showing 900cc. attempted to flush with no return OBJECTIVE: Last Vital Signs Temp Pulse Resp BP Pulse Ox 98.2 F 61 16 126/63 97 04/19/18 07:00 04/19/18 07:00 04/19/18 07:00 04/19/18 07:00 04/18/18 21:00 General NAD Abdomen +suprapubic tenderness and distention, soft, obese ASSESSMENT AND PLAN: 72 yo M with PMHx of HTN, hyperlipidemia, diabetes, atrial flutter, AFIB (on coumadin), CAD (s/p stent), past TIAs, BPH, CKD, diverticulosis, and chronic hip pain (3X broken hip) admitted with lower complicated UTI, hyperglycemia, and inability to care for at home. 1. Lower complicated UTI (H/o ESBL UTI and nephrolithiasis requiring ureteral stent and nephrostomy tube 01/2017)- clinically improved. UCx showing yeast. cont fluconazole day 7. repeat UA negative. ID and urology on board 2. LORY on CKD stage II (baseline 1.3-1.5) likely from retention/UTI +/- hypovolumia- now resolved. 3. Hyperglycemia-improved. cont current managment. titrate as needed.. 4. urinary retention- likely due to UTI. coughlin not draining causing distention. urology contacted and will place caudet. will need to maintain this on discharge and f.u with urology as outpatient. 5. subtherapeutic INR-due to noncompliance. now therapeutic. cont coumadin 6mg. will need repeat INR in 2 days. will need very close monitoring while on fluconazole. daily INR checks 6. Calf pain- now resolved. duplex neg for DVT 7. hypomagnesemia- resolved 8. CAD 9. diastolic CHF- no signs of heart failure 10. BPH 11. DVT ppx- coumadin 12.concern of compliance by patient on discharge. d/c home today. explained importance of medication complaince and follow up. verbalized understanding and agreement.
--- NOTE | 2018-04-19 16:48 | DS ---
Physical Exam: SUBJECTIVE: Patient seen and examined at bedside. Pt's coughlin was not draining well. Coudet cath was placed. Draining nicely OBJECTIVE: Vital Signs Period Temp Pulse Resp BP Sys/Crawford Pulse Ox Last 24 Hr 97.6 F-98.2 F 61-73 16-20 121-152/63-75 97 PHYSICAL EXAM Gen: comfortable in chair in NAD HEENT: NCAT, EOMI Neck: supple, no jvd Cardio: s1s2 no murmurs/rubs/gallops appreciated Pulm: cta Abd: nontender, normal bs, soft, coudet cath draining Ext: 2+ pulses, no edema LABS Laboratory Results - last 24 hr 04/18/18 04/19/18 04/19/18 16:41 03:02 05:51 PT with INR INR POC Glucometer 224 228 196 04/19/18 04/19/18 06:00 11:53 PT with INR 24.60 H INR 2.18 H POC Glucometer 205 HOSPITAL COURSE: Date of Admission:04/10/18 Date of Discharge: 04/19/18 Pt is a 72 y/o M with PMH AF and BPH who presents to ED with urinary retention, dysuria. Pt found to have UTI and LORY. Pt's initial UA was significant for LE 3, WBC 1848, isabella 190 on admission. It was felt to likely be 2/2 retention. He had no leukocytosis. He was given rocephin in ED, but UCx ultimately came back positive for yeast-like organism, so he was changed to fluconazole by ID. #Pt has had chronic issues with urinarny retention likely 2/2 BPH and/or med noncompliance. Initially, a straight cath yielded approx 300 cc. He was kept on Flomax, and Urology was consulted in ED. Coughlin was placed. Coughlin became clogged with blood clots and was removed. However, repeat scan showed pt was still retaining, so a new coughlin was placed. It worked well for a day, but it, too stopped draining. Nurse stated she was able to flush saline in , but it would drain only very slowly. Call was placed to Dr. Edmondson who recommended a coudet catheter, which was placed and was draining well. Pt has hist of DM. On admission, bgm was in the 600s, although he did not have an anion gap or ketonuria. He was placed on BGM ACHS, Levemir, and ISS. Pt has hx pAfib. On admission, INR was subtherapeutic, so pt was put on heparin bridge to coumadin. INR vacillated during his stay but has been therapeutic for the past few days. Pt had LORY on admission with initial [employer] 1.8 from baseline 1.3-1.5 (earlier this year), which resolved promplty. It was also felt to be likely 2/2 retention. Pt has been seen by PT and walked with a walker without a problem. Pt is stable for discharge home. Minutes to complete discharge: 30 Discharge Summary Reason For Visit: ACUTE RETENTION OF URINE, UTI Current Active Problems Acute urinary retention (Acute) CKD (chronic kidney disease) (Acute) Colonization with multidrug-resistant bacteria (Acute) Denial about severity of illness (Acute) Hypomagnesemia (Acute) UTI (urinary tract infection) (Acute) Condition: Good - Instructions Diet, Activity, Other Instructions: You were in the hospital for urinary infection, urinary retention, and because you were not taking your medications properly. It is very important that your follow up with your doctor within 2 days to get your INR checked. You INR was too low when you came in to the hospital. You also need to follow up on your blood sugar levels. Your blood sugar was very elevated when you came to the hospital. You need to follow up with your Urologist, as well. You are being sent home with a urinary catheter, which will need to be monitored and maintained. You need to speak to the urologist about when to take the catheter out. Referrals: Daniel Edmondson MD [Staff Physician] - 1 Week Disposition: HOME - Home Medications Comprehensive Discharge Medication List: Ambulatory Orders Aspirin [ASA -] 81 mg PO DAILY #30 tab.chew 04/19/18 Gemfibrozil [Lopid -] 600 mg PO BID@0700,1630 #60 tablet 04/19/18 Insulin (Levemir) [Levemir Vial] 20 units SQ BIDI #1 vial 04/19/18 Isosorbide Mononitrate [Imdur -] 30 mg PO DAILY #30 tab.sr.24h 04/19/18 Metoprolol Tartrate [Lopressor -] 25 mg PO BID #60 tablet 04/19/18 Ranitidine [Zantac -] 150 mg PO DAILY #30 tablet 04/19/18 Ranolazine [Ranexa -] 500 mg PO BID #60 tab 04/19/18 Tamsulosin HCl [Flomax -] 0.4 mg PO DAILY@0830 #30 cap.er.24h 04/19/18 Warfarin Na [Coumadin -] 6 mg PO DAILY@1800 #15 tablet 04/19/18 This patient is new to me today: No Emergency Visit: No Critical Care patient: No - Discharge Referral Referred to [facility] No
[2018-04-19] MEDS: WARFARIN NA 3 MG TABLET PO SCH (17:09)
[2018-04-19] MEDS ORDERED: MAG HYDROX/AL HYDROX/SIMETH 30 ML UNIT-DOSE CUP PO PRN (19:54)
[2018-04-19] MEDS: ACETAMINOPHEN 325 MG TABLET (FP) PO PRN (21:09)
[2018-04-20] MEDS: INSULIN SLIDING SCALE (NOVOLOG) 1 VIAL SQ SCH ×4 (06:16→21:43)
[2018-04-20] MEDS: GEMFIBROZIL 600 MG TABLET (FP) PO SCH ×2 (06:19→16:06)
[2018-04-20] MEDS: ACETAMINOPHEN 325 MG TABLET (FP) PO PRN ×2 (06:19→20:24)
--- NOTE | 2018-04-20 08:33 | PN ---
Physical Exam: SUBJECTIVE: Patient seen and examined at bedside. No acute events. Urinary cath draining well. OBJECTIVE: Vital Signs Period Temp Pulse Resp BP Sys/Crawford Pulse Ox Last 24 Hr 97.4 F-98.4 F 54-76 16-18 113-152/46-81 97-97 Gen: comfortable in chair in NAD HEENT: NCAT, EOMI Neck: supple, no jvd Cardio: s1s2 no murmurs/rubs/gallops appreciated Pulm: cta Abd: vague mild tenderness, normal bs, soft, coudet cath draining Ext: 2+ pulses, no edema Laboratory Results - last 24 hr 04/19/18 04/19/18 04/19/18 06:00 11:53 16:45 PT with INR 24.60 H INR 2.18 H POC Glucometer 205 286 04/19/18 04/20/18 21:04 05:38 PT with INR INR POC Glucometer 212 100 Active Medications Generic Name Dose Route Start Last Admin Trade Name Freq PRN Reason Stop Dose Admin Acetaminophen 650 mg 04/19/18 19:54 04/20/18 06:19 Tylenol - PO 650 mg Q4H PRN Administration PAIN LEVEL 1-5 Al Hydroxide/Mg Hydroxide 30 ml 04/19/18 19:54 Mylanta Oral Suspension - PO Q6H PRN DYSPEPSIA Amlodipine Besylate 2.5 mg 04/11/18 10:00 04/19/18 10:16 Norvasc - PO 2.5 mg DAILY LONNIE Administration Aspirin 81 mg 04/12/18 10:00 04/19/18 10:16 Asa - PO 81 mg DAILY LONNIE Administration Benzocaine/Menthol 1 each 04/13/18 01:19 Cepacol Lozenge - MM PRN PRN SORE THROAT Gemfibrozil 600 mg 04/11/18 16:30 04/20/18 06:19 Lopid - PO 600 mg BID@0700,1630 LONNIE Administration Insulin Aspart 1 vial 04/11/18 07:00 04/20/18 06:16 Novolog Vial Sliding Scale - SQ Not Given [facility] Protocol Insulin Detemir 20 units 04/13/18 07:56 04/19/18 17:09 Levemir Vial SQ 20 units BIDI LONNIE Administration Isosorbide Mononitrate 30 mg 04/11/18 10:00 04/19/18 10:16 Imdur - PO 30 mg DAILY LONNIE Administration Metoprolol Tartrate 25 mg 04/15/18 09:09 04/19/18 21:07 Lopressor - PO 25 mg BID LONNIE Administration Ranitidine HCl 150 mg 04/11/18 10:00 04/19/18 10:15 Zantac - PO 150 mg DAILY LONNIE Administration Ranolazine 500 mg 04/11/18 10:00 04/19/18 21:07 Ranexa - PO 500 mg BID LONNIE Administration Tamsulosin HCl 0.4 mg 04/11/18 08:30 04/19/18 08:38 Flomax - PO 0.4 mg DAILY@0830 LONNIE Administration Warfarin Sodium 6 mg 04/18/18 18:00 04/19/18 17:09 Coumadin - PO 6 mg DAILY@1800 LONNIE Administration ASSESSMENT/PLAN: Pt is a 72 y/o M with PMH AF and BPH who presents to ED with urinary retention, dysuria. Pt found to have UTI and LORY. #Retention -likely 2/2 BPH and/or med noncompliance -initially straight cath yielded approx 300 cc -Flomax -monitor -Urology consulted in ED -Coughlin clogged with blood clots this am and was d/c'ed. Bladder scan was > 1L. Pt voided 300 ml hematuria. New coughlin was placed and drained 800 ml. -Coughlin draining nicely at this time. clear yellow -Was called by nurse on day after discharge to see pt as urinary cath balloon was noted on CT to be within the prostatic urethra. Saw the pt with surg PA. PA attempted to deflate and advance cath without success. Coudet was removed and new coudet was placed in sterile fashion. Did not drain urine initially. Irrigation attempt was unsuccessful. Was advanced further and drained small amount of urine, however, insufflation of balloon resulted in pain from pt. Coudet was removed. Spoke with urologist. Plan is to leave pt without cath for next few hours with QH bladder scan and his partner will come this evening and place a catheter. #UTI -LE 3, WBC 1848, isabella 190 on admission -likely 2/2 retention -no leukocytosis -rocephin in ED -UCx pos for fungal - fluconazole (now d/c'ed by ID #DM -BGM ACHS -Levemir -ISS #pAfib -on Hep ggt coumadin bridge- -INR therapeutic -monitor for therapeutic range #LORY: RESOLVED -likely 2/2 retention -initial Lisw 1.8 from baseline 1.3-1.5 (earlier this year) #FEN -NS -lytes wnl -DM diet #PPx -Hep ggt, coumadin #Dispo -Med/Surg -will likely need vns or snf or nh on d/c because he appears to be unable to manage his home meds on his own -Plan for D/C on Mon. Yung Damon MD PGY-1 IM Visit type - Emergency Visit Emergency Visit: No - New Patient This patient is new to me today: No - Critical Care Critical Care patient: No - Discharge Referral Referred to [facility] Med P.C.: No
[2018-04-20 09:11] LABS: INR 3.02 (0.82-1.09); PROTHROMBIN TIME (PATIENT) 34.1 SEC (9.7-13.0)
[2018-04-20] MEDS: ISOSORBIDE MONONITRATE 30 MG TAB.SR.24H (FP) PO SCH (10:06)
[2018-04-20] MEDS: INSULIN (LEVEMIR) 100 UNITS/ML UNITS SQ SCH ×2 (10:06→16:18)
[2018-04-20] MEDS: amLODIPine BESYLATE 2.5 MG TABLET (FP) PO SCH (10:06)
[2018-04-20] MEDS: RANITIDINE HCL 150 MG TABLET (FP) PO SCH (10:06)
[2018-04-20] MEDS: METOPROLOL TARTRATE 25 MG TABLET (FP) PO SCH ×2 (10:06→21:17)
[2018-04-20] MEDS: TAMSULOSIN HCL 0.4 MG CAP.ER.24H (FP) PO SCH (10:06)
[2018-04-20] MEDS: RANOLAZINE E.R. 500 MG TABLET (FP) PO SCH ×2 (10:06→21:17)
[2018-04-20] MEDS: ASPIRIN 81 MG CHEWABLE TABLETS PO SCH (10:06)
[2018-04-20 10:19] LABS: BASO % 0.9 % (0-2.0); EOS % 3.7 % (0-4.5); HEMATOCRIT 37.9 % (35.4-49); HEMOGLOBIN 12.8 GM/dL (11.7-16.9); LYMPH % 48.1 % (8-40); MCH 31.5 pg (25.7-33.7); MCHC 33.8 g/dl (32.0-35.9); MEAN CELL VOLUME 93.3 fl (80-96); NEUT % 34.3 % (42.8-82.8); PLATELET COUNT 406 K/MM3 (134-434); RBC 4.07 M/mm3 (4.00-5.60); WHITE BLOOD COUNT 6.1 K/mm3 (4.0-10.0)
[2018-04-20] MEDS ORDERED: MAGNESIUM 2GM/50ML STERILE WATER IVPB IVPB ONE (13:00)
--- NOTE | 2018-04-20 14:06 | PN ---
Teaching Attending Note Name of Resident: Yung Damon ATTENDING PHYSICIAN STATEMENT I saw and evaluated the patient. I reviewed the resident's note and discussed the case with the resident. I agree with the resident's findings and plan as documented with exceptions below. SUBJECTIVE: Patient seen and examined, generalized abdominal discomfort, more in suprapubic region, no fevers, chills or new concerns. Some low back pain. OBJECTIVE: Vital Signs Period Temp Pulse Resp BP Sys/Crawford Pulse Ox Last 24 Hr 97.4 F-98.4 F 54-76 16-18 113-152/46-81 97-97 Intake & Output 04/17/18 04/18/18 04/19/18 04/20/18 23:59 23:59 23:59 23:59 Intake Total 220 1000 930 Output Total 3700 2375 1700 700 Balance -3480 -1375 -770 -700 Weight 223 lb General: sitting in bed in no acute distress Abdomen:soft, suprapubic tenderness, right CVA tenderness, no voluntary or involuntary guarding or rigidity Chest: CTAB, no rales or wheezing Extremities: no edema Active Medications Generic Name Dose Route Start Last Admin Trade Name Freq PRN Reason Stop Dose Admin Acetaminophen 650 mg 04/19/18 19:54 04/20/18 06:19 Tylenol - PO 650 mg Q4H PRN Administration PAIN LEVEL 1-5 Al Hydroxide/Mg Hydroxide 30 ml 04/19/18 19:54 Mylanta Oral Suspension - PO Q6H PRN DYSPEPSIA Amlodipine Besylate 2.5 mg 04/11/18 10:00 04/20/18 10:06 Norvasc - PO 2.5 mg DAILY LONNIE Administration Aspirin 81 mg 04/12/18 10:00 04/20/18 10:06 Asa - PO 81 mg DAILY LONNIE Administration Benzocaine/Menthol 1 each 04/13/18 01:19 Cepacol Lozenge - MM PRN PRN SORE THROAT Gemfibrozil 600 mg 04/11/18 16:30 04/20/18 06:19 Lopid - PO 600 mg BID@0700,1630 LONNIE Administration Insulin Aspart 1 vial 04/11/18 07:00 04/20/18 12:00 Novolog Vial Sliding Scale - SQ 6 unit ACHS LONNIE Administration Protocol Insulin Detemir 20 units 04/13/18 07:56 04/20/18 10:06 Levemir Vial SQ 20 units BIDI LONNIE Administration Isosorbide Mononitrate 30 mg 04/11/18 10:00 04/20/18 10:06 Imdur - PO 30 mg DAILY LONNIE Administration Metoprolol Tartrate 25 mg 04/15/18 09:09 04/20/18 10:06 Lopressor - PO 25 mg BID LONNIE Administration Ranitidine HCl 150 mg 04/11/18 10:00 04/20/18 10:06 Zantac - PO 150 mg DAILY LONNIE Administration Ranolazine 500 mg 04/11/18 10:00 04/20/18 10:06 Ranexa - PO 500 mg BID LONNIE Administration Tamsulosin HCl 0.4 mg 04/11/18 08:30 04/20/18 10:06 Flomax - PO 0.4 mg DAILY@0830 LONNIE Administration Laboratory Results - last 24 hr 04/19/18 04/19/18 04/20/18 16:45 21:04 05:38 WBC RBC Hgb Hct MCV MCH MCHC RDW Plt Count MPV Absolute Neuts (auto) Neutrophils % Lymphocytes % Monocytes % Eosinophils % Basophils % Nucleated RBC % PT with INR INR POC Glucometer 286 212 100 Magnesium 04/20/18 04/20/18 04/20/18 08:10 08:10 10:01 WBC 6.1 RBC 4.07 Hgb 12.8 Hct 37.9 MCV 93.3 MCH 31.5 MCHC 33.8 RDW 14.0 Plt Count 406 MPV 9.0 Absolute Neuts (auto) 2.1 Neutrophils % 34.3 L D Lymphocytes % 48.1 H D Monocytes % 13.0 H Eosinophils % 3.7 Basophils % 0.9 Nucleated RBC % 0 PT with INR 34.10 H INR 3.02 H D POC Glucometer Magnesium 1.6 L 04/20/18 11:25 WBC RBC Hgb Hct MCV MCH MCHC RDW Plt Count MPV Absolute Neuts (auto) Neutrophils % Lymphocytes % Monocytes % Eosinophils % Basophils % Nucleated RBC % PT with INR INR POC Glucometer [address] A/P results reviewed Microbiology 04/12/18 10:15 Urine - Urine - Catheterized Urine Culture - Final NO GROWTH OBTAINED 04/10/18 20:37 Urine - Urine Clean Catch Urine Culture - Final Yeast Like Organism ASSESSMENT AND PLAN: 72 yo M with PMHx of HTN, hyperlipidemia, diabetes, atrial flutter, AFIB (on coumadin), CAD (s/p stent), past TIAs, BPH, CKD, diverticulosis, and chronic hip pain (3X broken hip) admitted with lower complicated UTI, hyperglycemia, and inability to care for at home. -Lower complicated UTI (h/o ESBL UTI and nephrolithiasis requiring ureteral stent/nephrostomy tube 01/2017), UCx with yeast -LORY on CKD stage II (baseline Cr 1.3-.1.5) likely from retention/UTI +/- hypovolumia, resolved -COumadin coagulopathy, likely from non compliance -Hyperglycemia/IDDM -Urinary retention due to UTI/BPH -Calf pain, resolved, neg duplex -Hpypomagnesemia -CAD -h/o diastolic HF Plan: s/p 7 days of fluconazole. repeat urine cultures neg. ID input noted. CT A/p Noted, discussed with urology, plan for caude replacement and repositioning today. D/c with caude with outpatient follow up. Hold coumadin today, INR in AM Levemir BID, ISS, diabetic diet. Replete Mg prn. Psych input noted. HOld d/c plan pending above urological issue. Discuss with CM/family about SNF vs home with assist/supervision. Plan discussed with patient and all questions answered.
--- NOTE | 2018-04-20 14:30 | PN ---
Progress Note (short form) - Note Progress Note: Asked by Dr. Edmondson (urology) to see patient Patient had a coughlin cath placed 04/19/18 secondary to urinary retention. - [address] by resident Today, notified by patient's RN that it was draining earlier but appears to have stopped. Pt c/o increased suprapubic pain. An ABD CT scan ordered which identified that the balloon is inflated in the prostatic urethra. An attempt was made at deflating the balloon and advancing the catheter without success. Using sterile technique cleansed and prep in typical sterile fashion. 1 attempt made at passing 18 Fr coude. Catheter appears to pass without resistance (no urine flow from hub). A lot of resistance while trying to insufflate balloon. Patient in a lot of pain. Cath removed. Bedside bladder scan only shows 77 mL. Patient suprapubic region tender. + voluntary guarding. Patient currently on alpha lora. Recommend leaving patient without coughlin at this time. Serial bedside bladder scan Q HR Should he need a coughlin, recommend bedside cysto to aid in placement to prevent development of false lumen. Above discussed with Dr. Edmondson and agrees.
[2018-04-20] MEDS: SENNOSIDES/DOCUSATE COMBO (SENNA PLUS) TABLET (UD) PO SCH ×2 (16:56→16:58)
[2018-04-20] MEDS ORDERED: INSULIN (NOVOLOG) ASPART 100 UNITS/ML 10ML VIAL ONE ×2 (18:56→21:39)
[2018-04-21] MEDS: GEMFIBROZIL 600 MG TABLET (FP) PO SCH ×2 (06:22→17:24)
[2018-04-21] MEDS: INSULIN (LEVEMIR) 100 UNITS/ML UNITS SQ SCH ×2 (06:22→17:23)
[2018-04-21] MEDS: INSULIN SLIDING SCALE (NOVOLOG) 1 VIAL SQ SCH ×4 (06:22→21:59)
[2018-04-21 07:21] LABS: INR 2.96 (0.82-1.09); PROTHROMBIN TIME (PATIENT) 33.5 SEC (9.7-13.0)
[2018-04-21] MEDS ORDERED: MAGNESIUM 2GM/50ML STERILE WATER IVPB IVPB ONE (08:30)
[2018-04-21] MEDS ORDERED: PT OWN MED DRAWER 7, Y5N ONE (09:14)
[2018-04-21] MEDS: METOPROLOL TARTRATE 25 MG TABLET (FP) PO SCH ×2 (09:33→21:59)
[2018-04-21] MEDS: amLODIPine BESYLATE 2.5 MG TABLET (FP) PO SCH (09:33)
[2018-04-21] MEDS: TAMSULOSIN HCL 0.4 MG CAP.ER.24H (FP) PO SCH (09:34)
[2018-04-21] MEDS: RANITIDINE HCL 150 MG TABLET (FP) PO SCH (09:34)
[2018-04-21] MEDS: RANOLAZINE E.R. 500 MG TABLET (FP) PO SCH ×2 (09:34→21:59)
[2018-04-21] MEDS: ISOSORBIDE MONONITRATE 30 MG TAB.SR.24H (FP) PO SCH (09:34)
[2018-04-21] MEDS: ASPIRIN 81 MG CHEWABLE TABLETS PO SCH (09:34)
--- NOTE | 2018-04-21 13:11 | PN ---
Teaching Attending Note Name of Resident: Yung Damon ATTENDING PHYSICIAN STATEMENT I saw and evaluated the patient. I reviewed the resident's note and discussed the case with the resident. I agree with the resident's findings and plan as documented with exceptions below. SUBJECTIVE: Patient seen and examined, some abdominal discomfort but improved, no new concerns. OBJECTIVE: Vital Signs Period Temp Pulse Resp BP Sys/Crawford Pulse Ox Last 24 Hr 97.3 F-98.2 F 61-72 18-20 118-143/53-77 97-97 Intake & Output 04/18/18 04/19/18 04/20/18 04/21/18 23:59 23:59 23:59 23:59 Intake Total 8238 246 6346 350 Output Total 2375 1700 1650 1600 Balance -1375 -770 -270 -1250 Weight 223 lb General: lying in bed in no acute distress Chest: no rales or wheezing Abdomen:mild suprapubic tenderness, no CVA tenderness Extremities: no edema Active Medications Acetaminophen (Tylenol -) 650 mg PO Q4H PRN PRN Reason: PAIN LEVEL 1-5 Last Admin: 04/20/18 20:24 Dose: 650 mg Al Hydroxide/Mg Hydroxide (Mylanta Oral Suspension -) 30 ml PO Q6H PRN PRN Reason: DYSPEPSIA Last Admin: 04/20/18 20:24 Dose: 30 ml Amlodipine Besylate (Norvasc -) 2.5 mg PO DAILY [facility] Last Admin: 04/21/18 09:33 Dose: 2.5 mg Aspirin (Asa -) 81 mg PO DAILY [facility] Last Admin: 04/21/18 09:34 Dose: 81 mg Benzocaine/Menthol (Cepacol Lozenge -) 1 each MM PRN PRN PRN Reason: SORE THROAT Gemfibrozil (Lopid -) 600 mg PO BID@0700,1630 [facility] Last Admin: 04/21/18 06:22 Dose: 600 mg Insulin Aspart (Novolog Vial Sliding Scale -) 1 vial SQ ACHS [facility]; Protocol Last Admin: 04/21/18 11:32 Dose: 6 unit Insulin Detemir (Levemir Vial) 20 units SQ BIDI [facility] Last Admin: 04/21/18 06:22 Dose: 20 units Isosorbide Mononitrate (Imdur -) 30 mg PO DAILY [facility] Last Admin: 04/21/18 09:34 Dose: 30 mg Metoprolol Tartrate (Lopressor -) 25 mg PO BID [facility] Last Admin: 04/21/18 09:33 Dose: 25 mg Ranitidine HCl (Zantac -) 150 mg PO DAILY [facility] Last Admin: 04/21/18 09:34 Dose: 150 mg Ranolazine (Ranexa -) 500 mg PO BID [facility] Last Admin: 04/21/18 09:34 Dose: 500 mg Senna/Docusate Sodium (Pericolace -) 2 tablet PO HS [facility] Stop: 04/21/18 16:59 Last Admin: 04/20/18 16:58 Dose: 2 tablet Tamsulosin HCl (Flomax -) 0.4 mg PO DAILY@0830 [facility] Last Admin: 04/21/18 09:34 Dose: 0.4 mg Warfarin Sodium (Coumadin -) 4 mg PO DAILY@1800 [facility] Laboratory Results - last 24 hr 04/20/18 04/20/18 04/21/18 16:11 21:38 06:00 PT with INR 33.50 H INR 2.96 H POC Glucometer 230 259 04/21/18 04/21/18 06:20 11:28 PT with INR INR POC Glucometer 133 261 ASSESSMENT AND PLAN: 72 yo M with PMHx of HTN, hyperlipidemia, diabetes, atrial flutter, AFIB (on coumadin), CAD (s/p stent), past TIAs, BPH, CKD, diverticulosis, and chronic hip pain (3X broken hip) admitted with lower complicated UTI, hyperglycemia, and inability to care for at home. -Lower complicated UTI (h/o ESBL UTI and nephrolithiasis requiring ureteral stent/nephrostomy tube 01/2017), UCx with yeast -LORY on CKD stage II (baseline Cr 1.3-.1.5) likely from retention/UTI +/- hypovolumia, resolved -COumadin coagulopathy, likely from non compliance -Hyperglycemia/IDDM -Urinary retention due to UTI/BPH -Calf pain, resolved, neg duplex -Hpypomagnesemia -CAD -h/o diastolic HF Plan: s/p 7 days of fluconazole. repeat urine cultures neg. ID input noted. CT A/p Noted, urology input noted, caude replaced, outpatient urology follo wup. Resume coumadin 4 mg dialy. Levemir BID, ISS, diabetic diet. Replete Mg prn. Psych input noted. Discuss with CM, plan for d/c in 24 hours pending dispo arrangements Plan discussed with patient and all questions answered.
--- NOTE | 2018-04-21 16:29 | PN ---
Progress Note (short form) - Note Progress Note: called for difficult catheterization. Staff and PA unable to cath. I placed a 16 Fr cath with clear output.
--- NOTE | 2018-04-21 17:53 | PN ---
Physical Exam: SUBJECTIVE: Patient seen and examined at bedside. Coughlin stopped draining again. Urologist to replace. OBJECTIVE: Vital Signs Period Temp Pulse Resp BP Sys/Crawford Pulse Ox Last 24 Hr 97.3 F-98.2 F 61-72 16-20 118-143/44-77 97-97 Gen: comfortable in chair in NAD HEENT: NCAT, EOMI Neck: supple, no jvd Cardio: s1s2 no murmurs/rubs/gallops appreciated Pulm: cta Abd: vague mild tenderness, normal bs, soft, cath draining Ext: 2+ pulses, no edema Laboratory Results - last 24 hr 04/20/18 04/21/18 04/21/18 21:38 06:00 06:20 PT with INR 33.50 H INR 2.96 H POC Glucometer 259 133 Magnesium 04/21/18 04/21/18 04/21/18 11:28 12:08 17:15 PT with INR INR POC Glucometer 261 249 Magnesium 1.9 Active Medications Generic Name Dose Route Start Last Admin Trade Name Noahq PRN Reason Stop Dose Admin Acetaminophen 650 mg 04/19/18 19:54 04/20/18 20:24 Tylenol - PO 650 mg Q4H PRN Administration PAIN LEVEL 1-5 Al Hydroxide/Mg Hydroxide 30 ml 04/19/18 19:54 04/20/18 20:24 Mylanta Oral Suspension - PO 30 ml Q6H PRN Administration DYSPEPSIA Amlodipine Besylate 2.5 mg 04/11/18 10:00 04/21/18 09:33 Norvasc - PO 2.5 mg DAILY LONNIE Administration Aspirin 81 mg 04/12/18 10:00 04/21/18 09:34 Asa - PO 81 mg DAILY LONNIE Administration Benzocaine/Menthol 1 each 04/13/18 01:19 Cepacol Lozenge - MM PRN PRN SORE THROAT Gemfibrozil 600 mg 04/11/18 16:30 04/21/18 17:24 Lopid - PO 600 mg BID@0700,1630 LONNIE Administration Insulin Aspart 1 vial 04/11/18 07:00 04/21/18 17:24 Novolog Vial Sliding Scale - SQ 4 unit ACHS LONNIE Administration Protocol Insulin Detemir 20 units 04/13/18 07:56 04/21/18 17:23 Levemir Vial SQ 20 units BIDI LONNIE Administration Isosorbide Mononitrate 30 mg 04/11/18 10:00 04/21/18 09:34 Imdur - PO 30 mg DAILY LONNIE Administration Metoprolol Tartrate 25 mg 04/15/18 09:09 04/21/18 09:33 Lopressor - PO 25 mg BID LONNIE Administration Ranitidine HCl 150 mg 04/11/18 10:00 04/21/18 09:34 Zantac - PO 150 mg DAILY LONNIE Administration Ranolazine 500 mg 04/11/18 10:00 04/21/18 09:34 Ranexa - PO 500 mg BID LONNIE Administration Tamsulosin HCl 0.4 mg 04/11/18 08:30 04/21/18 09:34 Flomax - PO 0.4 mg DAILY@0830 LONNIE Administration Warfarin Sodium 4 mg 04/21/18 18:00 04/21/18 17:24 Coumadin - PO 4 mg DAILY@1800 LONNIE Administration ASSESSMENT/PLAN: Pt is a 72 y/o M with PMH AF and BPH who presents to ED with urinary retention, dysuria. Pt found to have UTI and LORY. #Retention -likely 2/2 BPH and/or med noncompliance -initially straight cath yielded approx 300 cc -Flomax -monitor -Urology consulted in ED -Coughlin clogged with blood clots this am and was d/c'ed. Bladder scan was > 1L. Pt voided 300 ml hematuria. New coughlin was placed and drained 800 ml. -Coughlin draining nicely at this time. clear yellow -Coughlin placed by Urogolist stopped draining. Urologist was called and will come to adjust. Dr. Edmondson recommends keeping pt for 2 days and is considering doing a TURP #UTI -LE 3, WBC 1848, isabella 190 on admission -likely 2/2 retention -no leukocytosis -rocephin in ED -UCx pos for fungal - fluconazole (now d/c'ed by ID #DM -BGM ACHS -Levemir -ISS #pAfib -on Hep ggt coumadin bridge- -INR therapeutic -monitor for therapeutic range #LORY: RESOLVED -likely 2/2 retention -initial Risk Assessment Analyst 1.8 from baseline 1.3-1.5 (earlier this year) #FEN -NS -lytes wnl -DM diet #PPx -Hep ggt, coumadin #Dispo -Med/Surg -will likely need vns or snf or nh on d/c because he appears to be unable to manage his home meds on his own -Plan for D/C on Mon. Yung Damon MD PGY-1 IM Visit type - Emergency Visit Emergency Visit: No - New Patient This patient is new to me today: No - Critical Care Critical Care patient: No - Discharge Referral Referred to [facility] No
[2018-04-21] MEDS ORDERED: WARFARIN NA 2 MG TABLET (UD) PO SCH (18:00)
--- NOTE | 2018-04-21 19:11 | PN ---
Progress Note (short form) - Note Progress Note: coughlin again stopped draining today new 18fr couhglin placed under sterile conditions 600cc urine retrieved cont coughlin for now to consider TURP pending cardiology and medical clearances Problem List - Problems (1) UTI (urinary tract infection) Code(s): N39.0 - URINARY TRACT INFECTION, SITE NOT SPECIFIED Qualifiers: Urinary tract infection type: acute cystitis Hematuria presence: with hematuria Qualified Code(s): N30.01 - Acute cystitis with hematuria
[2018-04-21] MEDS ORDERED: INSULIN (NOVOLOG) ASPART 100 UNITS/ML 10ML VIAL ONE (20:30)
[2018-04-22] MEDS: INSULIN SLIDING SCALE (NOVOLOG) 1 VIAL SQ SCH ×4 (06:06→21:16)
[2018-04-22] MEDS: GEMFIBROZIL 600 MG TABLET (FP) PO SCH ×2 (06:10→17:37)
[2018-04-22] MEDS: INSULIN (LEVEMIR) 100 UNITS/ML UNITS SQ SCH ×2 (06:11→17:36)
[2018-04-22 06:29] LABS: INR 2.19 (0.82-1.09); PROTHROMBIN TIME (PATIENT) 24.7 SEC (9.7-13.0)
--- NOTE | 2018-04-22 07:17 | PN ---
Teaching Attending Note Name of Resident: Yung Damon ATTENDING PHYSICIAN STATEMENT I saw and evaluated the patient. I reviewed the resident's note and discussed the case with the resident. I agree with the resident's findings and plan as documented with exceptions below. SUBJECTIVE: Patient seen and examined. still with vague abdominal complaints. OBJECTIVE: Vital Signs Period Temp Pulse Resp BP Sys/Crawford Pulse Ox Last 24 Hr 97.6 F-98.4 F 59-72 16-20 116-133/44-67 97-97 Intake & Output 04/19/18 04/20/18 04/21/18 04/22/18 23:59 23:59 23:59 23:59 Intake Total 930 1380 720 Output Total 1700 1650 1700 1900 Balance -770 -270 -980 -1900 Weight 223 lb General: lying in bed in no acute distress Abdomen: soft, minimal suprapubic tenderness, no CVA tenderness Home Medications Medication Instructions Recorded Aspirin [ASA -] 81 mg PO DAILY #30 tab.chew 04/19/18 Gemfibrozil [Lopid -] 600 mg PO BID@0700,1630 #60 tablet 04/19/18 Insulin (Levemir) [Levemir Vial] 20 units SQ BIDI #1 vial 04/19/18 Isosorbide Mononitrate [Imdur -] 30 mg PO DAILY #30 tab.sr.24h 04/19/18 Metoprolol Tartrate [Lopressor -] 25 mg PO BID #60 tablet 04/19/18 Ranitidine [Zantac -] 150 mg PO DAILY #30 tablet 04/19/18 Ranolazine [Ranexa -] 500 mg PO BID #60 tab 04/19/18 Tamsulosin HCl [Flomax -] 0.4 mg PO DAILY@0830 #30 cap.er.24h 04/19/18 Warfarin Na [Coumadin -] 6 mg PO DAILY@1800 #15 tablet 04/19/18 Active Medications Acetaminophen (Tylenol -) 650 mg PO Q4H PRN PRN Reason: PAIN LEVEL 1-5 Last Admin: 04/20/18 20:24 Dose: 650 mg Al Hydroxide/Mg Hydroxide (Mylanta Oral Suspension -) 30 ml PO Q6H PRN PRN Reason: DYSPEPSIA Last Admin: 04/20/18 20:24 Dose: 30 ml Amlodipine Besylate (Norvasc -) 2.5 mg PO DAILY [facility] Last Admin: 04/21/18 09:33 Dose: 2.5 mg Aspirin (Asa -) 81 mg PO DAILY [facility] Last Admin: 04/21/18 09:34 Dose: 81 mg Benzocaine/Menthol (Cepacol Lozenge -) 1 each MM PRN PRN PRN Reason: SORE THROAT Gemfibrozil (Lopid -) 600 mg PO BID@0700,1630 [facility] Last Admin: 04/22/18 06:10 Dose: 600 mg Insulin Aspart (Novolog Vial Sliding Scale -) 1 vial SQ [facility]; Protocol Last Admin: 04/22/18 06:06 Dose: Not Given Insulin Detemir (Levemir Vial) 20 units SQ BIDI [facility] Last Admin: 04/22/18 06:11 Dose: 20 units Isosorbide Mononitrate (Imdur -) 30 mg PO DAILY [facility] Last Admin: 04/21/18 09:34 Dose: 30 mg Metoprolol Tartrate (Lopressor -) 25 mg PO BID [facility] Last Admin: 04/21/18 21:59 Dose: 25 mg Ranitidine HCl (Zantac -) 150 mg PO DAILY [facility] Last Admin: 04/21/18 09:34 Dose: 150 mg Ranolazine (Ranexa -) 500 mg PO BID [facility] Last Admin: 04/21/18 21:59 Dose: 500 mg Tamsulosin HCl (Flomax -) 0.4 mg PO DAILY@0830 [facility] Last Admin: 04/21/18 09:34 Dose: 0.4 mg Warfarin Sodium (Coumadin -) 4 mg PO DAILY@1800 [facility] Last Admin: 04/21/18 17:24 Dose: 4 mg Laboratory Results - last 24 hr 04/21/18 04/21/18 04/21/18 06:00 11:28 12:08 PT with INR 33.50 H INR 2.96 H POC Glucometer 261 Magnesium 1.9 04/21/18 04/21/18 04/22/18 17:15 20:24 05:57 PT with INR INR POC Glucometer 249 274 131 Magnesium 04/22/18 06:00 PT with INR 24.70 H INR 2.19 H POC Glucometer Magnesium ASSESSMENT AND PLAN: 72 yo M with PMHx of HTN, hyperlipidemia, diabetes, atrial flutter, AFIB (on coumadin), CAD (s/p stent), past TIAs, BPH, CKD, diverticulosis, and chronic hip pain (3X broken hip) admitted with lower complicated UTI, hyperglycemia, and inability to care for at home. -Lower complicated UTI (h/o ESBL UTI and nephrolithiasis requiring ureteral stent/nephrostomy tube 01/2017), UCx with yeast -BPH with recurrent coughlin blockage -LORY on CKD stage II (baseline Cr 1.3-.1.5) likely from retention/UTI +/- hypovolumia, resolved -COumadin coagulopathy, likely from non compliance -Hyperglycemia/IDDM -Urinary retention due to UTI/BPH -Calf pain, resolved, neg duplex -Hpypomagnesemia -CAD -h/o diastolic HF Plan: Recurrent coughlin blockage, urology input noted. Possible TURP. Cardiology consult noted, hold janelle-op ASA/coumadin with monitoring. s/p 7 days of fluconazole. repeat urine cultures neg. ID input noted. CT A/P noted, no evidence of kidney stones. Levemir BID, ISS, diabetic diet. Replete Mg prn. Psych input noted. Discuss with CM, dispo plan on hold given recurrent urinary obstruction, coughlin concerns and possible need for urological intervention. Plan discussed with patient and all questions answered.
[2018-04-22] MEDS: ISOSORBIDE MONONITRATE 30 MG TAB.SR.24H (FP) PO SCH (09:28)
[2018-04-22] MEDS: METOPROLOL TARTRATE 25 MG TABLET (FP) PO SCH ×2 (09:29→21:15)
[2018-04-22] MEDS: TAMSULOSIN HCL 0.4 MG CAP.ER.24H (FP) PO SCH (09:29)
[2018-04-22] MEDS: RANITIDINE HCL 150 MG TABLET (FP) PO SCH (09:29)
[2018-04-22] MEDS: RANOLAZINE E.R. 500 MG TABLET (FP) PO SCH ×2 (09:29→21:15)
[2018-04-22] MEDS: amLODIPine BESYLATE 2.5 MG TABLET (FP) PO SCH (09:29)
[2018-04-22] MEDS: ASPIRIN 81 MG CHEWABLE TABLETS PO SCH (09:29)
--- NOTE | 2018-04-22 09:58 | CON.CARD ---
Consult Consult Specialty:: Cardiology Referred by:: Hospitalist Medicine Reason for Consultation:: Afib - History of Present Illness Chief Complaint: Urinary retention History of Present Illness: Patient is a 72 year old male with underlying history of coronary artery disease S/P multiple coronary intervention with stenting, angina pectoris, diastolic LV dysfunction and failure, paroxysmal atrial fibrillation [id number] score of 5 on Coumadin, right stroke, hypertension/hypertensive cardiovascular disease, hypercholesterolemia, DM, cholelithiasis, nephrolithiasis s/p ureteral stent/nephrostomy tube 01/2017, benign prostatic hypertrophy, diverticulosis, chronic hip pain (3X broken hip), recurrent UTIs and CKD who admitted with lower complicated UTI, urinary retention, hyperglycemia, acute on CKD since resolved, coumadin coagulopathy and inability to care for at home. CT scan shows cystitis and markedly enlarged prostate without hydronephrosis, nephrolithiasis, hydroureters, cholelithiasis and descending and sigmoid diverticulosis. Asked to perform pre-TURP CV evaluation. Regarding CV symptoms, he denies chest pain, dyspnea, near or true syncope, palpitations, orthopnea, PND, LE edema. - History Source History Provided By: Medical Record Limitations to Obtaining History: Clinical Condition - Past Medical History Cardio/Vascular: Yes: AFIB, CAD, Deep Vein Thrombosis, HTN, Hyperlipdemia Pulmonary: Yes: Sleep Apnea Hepatobiliary: Yes: Cholelithiasis Renal/: Yes: Renal Inusuff, BPH, Renal Calculi Endocrine: Yes: Diabetes Mellitus - Past Surgical History Past Surgical History: Yes: Appendectomy, Joint Replacement (Hip surgery for fracture right femur, ORIF right ankle, hip replacement) - Alcohol/Substance Use Hx Alcohol Use: No - Smoking History Smoking history: Former smoker Have you smoked in the past 12 months: No Aproximately how many cigarettes per day: 0 If you are a former smoker, when did you quit?: 1995 - Social History Usual Living Arrangement: With Spouse ADL: Independent Home Medications - Allergies Allergies/Adverse Reactions: Allergies Allergy/AdvReac Type Severity Reaction Status Date / Time Qevytgf-Ivh-Yar Reductase Allergy Unknown Verified 04/10/18 19:36 Inhibitor lactose AdvReac Verified 04/10/18 19:36 - Home Medications Home Medications: Ambulatory Orders Aspirin [ASA -] 81 mg PO DAILY #30 tab.chew 04/19/18 Gemfibrozil [Lopid -] 600 mg PO BID@0700,1630 #60 tablet 04/19/18 Insulin (Levemir) [Levemir Vial] 20 units SQ BIDI #1 vial 04/19/18 Isosorbide Mononitrate [Imdur -] 30 mg PO DAILY #30 tab.sr.24h 04/19/18 Metoprolol Tartrate [Lopressor -] 25 mg PO BID #60 tablet 04/19/18 Ranitidine [Zantac -] 150 mg PO DAILY #30 tablet 04/19/18 Ranolazine [Ranexa -] 500 mg PO BID #60 tab 04/19/18 Tamsulosin HCl [Flomax -] 0.4 mg PO DAILY@0830 #30 cap.er.24h 04/19/18 Warfarin Na [Coumadin -] 6 mg PO DAILY@1800 #15 tablet 04/19/18 Family Disease History - Family Disease History Family Disease History: Diabetes: Grandparent Review of Systems - Review of Systems Genitourinary: reports: Flank Pain, Incontinence Vital Signs: Vital Signs Temperature 98.4 F 04/22/18 09:31 Pulse Rate 79 04/22/18 09:31 Respiratory Rate 18 04/22/18 09:31 Blood Pressure 124/70 04/22/18 09:31 O2 Sat by Pulse Oximetry (%) 97 04/22/18 08:15 Constitutional: Yes: No Distress, Calm Neck: Yes: Supple Respiratory: Yes: Regular, CTA Bilaterally Gastrointestinal: Yes: Normal Bowel Sounds, Soft, Abdomen, Obese Cardiovascular: Yes: Pulse Irregular JVD: No Carotid Bruit: No Heart Sounds: Yes: S1, S2 Edema: No - Other Data Labs, Other Data: CBC, BMP 04/20/18 08:10 04/16/18 06:00 INR, PTT INR 2.19 (0.82-1.09) H 04/22/18 06:00 Afib @ 6 with lateral TWI Ejection Fraction %: LVEF > or = 40 % Imaging - Results Chest X-ray: Report Reviewed (04/10/2018 NAD) Ultrasound: Report Reviewed (No nephrolithiasis, hydronephrosis, bilateral renal cysts, neg DVT bilaterally) Problem List - Problems (1) Acute urinary retention Code(s): R33.8 - OTHER RETENTION OF URINE (2) CKD (chronic kidney disease) Code(s): N18.9 - CHRONIC KIDNEY DISEASE, UNSPECIFIED Qualifiers: Chronic kidney disease stage: unspecified stage Qualified Code(s): N18.9 - Chronic kidney disease, unspecified (3) LORY (acute kidney injury) Code(s): N17.9 - ACUTE KIDNEY FAILURE, UNSPECIFIED (4) Atrial fibrillation by electrocardiography Code(s): I48.91 - UNSPECIFIED ATRIAL FIBRILLATION (5) CAD (coronary artery disease) Code(s): I25.10 - ATHSCL HEART DISEASE OF [place] CORONARY ARTERY W/O ANG PCTRS Qualifiers: Coronary Disease-Associated Artery/Lesion type: [place] artery [place] vs. transplanted heart: [place] heart Associated angina: without angina Qualified Code(s): I25.10 - Atherosclerotic heart disease of [place] coronary artery without angina pectoris (6) CVA (cerebral vascular accident) Code(s): I63.9 - CEREBRAL INFARCTION, UNSPECIFIED Qualifiers: CVA mechanism: embolism Precerebral and cerebral artery: middle cerebral artery Laterality of affected vessel: right Qualified Code(s): I63.411 - Cerebral infarction due to embolism of right middle cerebral artery (7) Cholelithiasis without obstruction Code(s): K80.20 - CALCULUS OF GALLBLADDER W/O CHOLECYSTITIS W/O OBSTRUCTION (8) 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 due to underlying condition with hyperglycemia Code(s): E08.65 - DIABETES DUE TO UNDERLYING CONDITION W HYPERGLYCEMIA Qualifiers: 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 technician terminal and repeater insulin use: with technician terminal and repeater use Qualified Code( s): E08.65 - 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 due to underlying condition with hyperglycemia; Z79.4 - [facility] (current) use of insulin (9) Coughlin catheter problem Code(s): T83.9XXA - UNSP COMPLICATION OF GENITOURINARY PROSTH DEV/GRFT, INIT Qualifiers: Encounter type: initial encounter Qualified Code(s): T83.9XXA - Unspecified complication of genitourinary prosthetic device, implant and graft, initial encounter (10) HTN (hypertension) Code(s): I10 - ESSENTIAL (PRIMARY) HYPERTENSION Qualifiers: Hypertension type: essential hypertension Qualified Code(s): I10 - Essential (primary) hypertension (11) History of cardiac radiofrequency ablation (RFA) Code(s): Z98.89 - OTHER SPECIFIED POSTPROCEDURAL STATES * DO NOT USE * (12) Hyperlipidemia Code(s): E78.5 - HYPERLIPIDEMIA, UNSPECIFIED Qualifiers: Hyperlipidemia type: mixed hyperlipidemia Qualified Code(s): E78.2 - Mixed hyperlipidemia (13) Obstructive sleep apnea of adult Code(s): G47.33 - OBSTRUCTIVE SLEEP APNEA (ADULT) (PEDIATRIC) (14) S/P coronary artery stent placement Code(s): Z95.5 - PRESENCE OF CORONARY ANGIOPLASTY IMPLANT AND GRAFT (15) Urinary retention Code(s): R33.9 - RETENTION OF URINE, UNSPECIFIED (16) Pre-operative cardiovascular examination Code(s): Z01.810 - ENCOUNTER FOR PREPROCEDURAL CARDIOVASCULAR EXAMINATION Assessment/Plan Echocardiography Nov 30, 2017 revealed normal LV size and function, bi-atrial dilatation, with mild MR Echocardiography dated 12/21/2015 normal LV size and function, with mild TR and [place] MPI study dated 12/21/2015 revealed small-moderate size apical defect compatible with mild ischemia with preserved LV function 1. Lower complicated UTI (h/o ESBL UTI and nephrolithiasis requiring ureteral stent/nephrostomy tube 01/2017), UCx with yeast 2. Pre-op CV evalutaion prior to TURP -> BPH with recurrent coughlin blockage 3. LORY on CKD stage II (baseline Cr 1.3-.1.5) likely from retention/UTI +/- hypovolumia, resolved 4. H/o right cerebal embolic CVA in context of atrial fibrillation despite Eliquis therapy now on coumadin with therapeutic INR 5. Paroxysmal atrial fibrillation [id number] score of 6 on NOAC's - ? noncompliance vs. breakthrough neurologic event (NOAC failure) 6. CAD post multi-vessel PCI stent angina pectoris, with evidence of demand ischemic injury, stable on medical therapy 7. Diastolic LV dysfunction with chronic class I NYHA classification LV failure , compensated/euvolemic 8. HTN 9. DM 10. Hyperlipidemia 11. History of KATJA 12. Anemia Plan: 1. Given absence of symptoms of acute coronary syndrome, decompensated CHF or malignant arrhythmia and recent low risk stress testing within last 5 years, may proceed with TURP from CV-standpoint without further testing once INR acceptable 2. Continue Lopressor 25 bid as hemodynamics permit 3. Continue Amlodipine 2.5 qd 4. Continue Cozaar 50 qd with close mentoring of renal function, hemodynamics permitting 5. Continue Imdur 30 qd 6. Continue Ranexa 500 bid 7. D/c Coumadin and ASA 81 qd pre-op and resume once post-procedure hemostasis has been achieved 8. Continue Lopid 600 bid and Welchol 625 bid 9. PT, GI prophylaxis 10. Thank you for consultative opportunity
--- NOTE | 2018-04-22 12:48 | PN ---
Physical Exam: SUBJECTIVE: Patient seen and examined at bedside. Pt had new coudet placed yesterday by urologist. Spoke with Dr. Edmondson who suggested that the patient stay, have Coumadin held, and perform a TURP once subtherapeutic. OBJECTIVE: Vital Signs Period Temp Pulse Resp BP Sys/Crawford Pulse Ox Last 24 Hr 97.6 F-98.4 F 59-79 16-20 116-133/44-70 97-97 Gen: comfortable in chair in NAD HEENT: NCAT, EOMI Neck: supple, no jvd Cardio: s1s2 no murmurs/rubs/gallops appreciated Pulm: cta Abd: vague mild tenderness still present, normal bs, soft, cath draining Ext: 2+ pulses, no edema Laboratory Results - last 24 hr 04/21/18 04/21/18 04/21/18 12:08 17:15 20:24 PT with INR INR POC Glucometer 249 274 Magnesium 1.9 04/22/18 04/22/18 04/22/18 05:57 06:00 11:55 PT with INR 24.70 H INR 2.19 H POC Glucometer 131 301 Magnesium Active Medications Generic Name Dose Route Start Last Admin Trade Name Freq PRN Reason Stop Dose Admin Acetaminophen 650 mg 04/19/18 19:54 04/20/18 20:24 Tylenol - PO 650 mg Q4H PRN Administration PAIN LEVEL 1-5 Al Hydroxide/Mg Hydroxide 30 ml 04/19/18 19:54 04/20/18 20:24 Mylanta Oral Suspension - PO 30 ml Q6H PRN Administration DYSPEPSIA Amlodipine Besylate 2.5 mg 04/11/18 10:00 04/22/18 09:29 Norvasc - PO 2.5 mg DAILY LONNIE Administration Benzocaine/Menthol 1 each 04/13/18 01:19 Cepacol Lozenge - MM PRN PRN SORE THROAT Gemfibrozil 600 mg 04/11/18 16:30 04/22/18 06:10 Lopid - PO 600 mg BID@0700,1630 LONNIE Administration Insulin Aspart 1 vial 04/11/18 07:00 04/22/18 12:07 Novolog Vial Sliding Scale - SQ 8 unit ACHS LONNIE Administration Protocol Insulin Detemir 20 units 04/13/18 07:56 04/22/18 06:11 Levemir Vial SQ 20 units BIDI LONNIE Administration Isosorbide Mononitrate 30 mg 04/11/18 10:00 04/22/18 09:28 Imdur - PO 30 mg DAILY LONNIE Administration Metoprolol Tartrate 25 mg 04/15/18 09:09 04/22/18 09:29 Lopressor - PO 25 mg BID LONNIE Administration Ranitidine HCl 150 mg 04/11/18 10:00 04/22/18 09:29 Zantac - PO 150 mg DAILY LONNIE Administration Ranolazine 500 mg 04/11/18 10:00 04/22/18 09:29 Ranexa - PO 500 mg BID LONNIE Administration Tamsulosin HCl 0.4 mg 04/11/18 08:30 04/22/18 09:29 Flomax - PO 0.4 mg DAILY@0830 LONNIE Administration ASSESSMENT/PLAN: Pt is a 72 y/o M with PMH AF and BPH who presents to ED with urinary retention, dysuria. Pt found to have UTI and LORY. #Retention -likely 2/2 BPH and/or med noncompliance -initially straight cath yielded approx 300 cc -Flomax -monitor -Urology consulted in ED -Coughlin clogged with blood clots this am and was d/c'ed. Bladder scan was > 1L. Pt voided 300 ml hematuria. New coughlin was placed and drained 800 ml. -Coughlin draining nicely at this time. clear yellow -Coughlin placed by Urogolist stopped draining. Urologist was called and will come to adjust. Dr. Edmondson recommends keeping pt for 2 days and is considering doing a TURP. Will hold Coumadin and ASA -Pt seen by Cardio. Rec holding Coumadin and ASA and resuming once hemostasis achieved post-procedure. #UTI -LE 3, WBC 1848, isabella 190 on admission -likely 2/2 retention -no leukocytosis -rocephin in ED -UCx pos for fungal - fluconazole (now d/c'ed by ID) #DM -BGM ACHS -Levemir -ISS #pAfib -Hep ggt coumadin bridge- completed -INR therapeutic -monitor for therapeutic range -Will hold Coumadin for TURP #LORY: RESOLVED -likely 2/2 retention -initial Manager Secondary 1.8 from baseline 1.3-1.5 (earlier this year) #FEN -NS -lytes wnl -DM diet #PPx -Hold coumadin #Dispo -Med/Surg -will likely need vns or snf or nh on d/c because he appears to be unable to manage his home meds on his own -Plan for D/C on Thu. Yung Damon MD PGY-1 IM Visit type - Emergency Visit Emergency Visit: No - New Patient This patient is new to me today: No - Critical Care Critical Care patient: No - Discharge Referral Referred to [facility] Med P.C[facility] No
[2018-04-23] MEDS: INSULIN (LEVEMIR) 100 UNITS/ML UNITS SQ SCH ×2 (05:59→17:03)
[2018-04-23] MEDS: GEMFIBROZIL 600 MG TABLET (FP) PO SCH ×2 (05:59→17:03)
[2018-04-23] MEDS: INSULIN SLIDING SCALE (NOVOLOG) 1 VIAL SQ SCH ×4 (05:59→21:55)
[2018-04-23 07:23] LABS: BASO % 1.1 % (0-2.0); HEMATOCRIT 38.6 % (35.4-49); LYMPH % 43.6 % (8-40); MCHC 33.6 g/dl (32.0-35.9); MEAN CELL VOLUME 92.2 fl (80-96); MEAN PLT VOLUME 8.9 fl (7.5-11.1); MONO % 10.8 % (3.8-10.2); NEUT % 40.5 % (42.8-82.8); PLATELET COUNT 408 K/MM3 (134-434); RBC 4.19 M/mm3 (4.00-5.60); WHITE BLOOD COUNT 6.3 K/mm3 (4.0-10.0)
[2018-04-23 07:27] LABS: INR 1.67 (0.82-1.09); PROTHROMBIN TIME (PATIENT) 18.9 SEC (9.7-13.0)
[2018-04-23 07:29] LABS: ACTIVATED PTT 39.1 SECONDS (25.2-36.5)
[2018-04-23] MEDS: TAMSULOSIN HCL 0.4 MG CAP.ER.24H (FP) PO SCH (08:44)
[2018-04-23] MEDS: ISOSORBIDE MONONITRATE 30 MG TAB.SR.24H (FP) PO SCH (09:15)
[2018-04-23] MEDS: RANITIDINE HCL 150 MG TABLET (FP) PO SCH (09:15)
[2018-04-23] MEDS: amLODIPine BESYLATE 2.5 MG TABLET (FP) PO SCH (09:15)
[2018-04-23] MEDS: METOPROLOL TARTRATE 25 MG TABLET (FP) PO SCH ×2 (09:15→21:55)
[2018-04-23] MEDS: RANOLAZINE E.R. 500 MG TABLET (FP) PO SCH ×2 (09:15→21:55)
--- NOTE | 2018-04-23 11:29 | PN ---
Progress Note, Physician History of Present Illness: He denies chest pain, dyspnea, near or true syncope, palpitations, orthopnea, PND, LE edema, await decision on TURP, coughlin draining clear urine. - Current Medication List Current Medications: Active Medications Acetaminophen (Tylenol -) 650 mg PO Q4H PRN PRN Reason: PAIN LEVEL 1-5 Last Admin: 04/20/18 20:24 Dose: 650 mg Al Hydroxide/Mg Hydroxide (Mylanta Oral Suspension -) 30 ml PO Q6H PRN PRN Reason: DYSPEPSIA Last Admin: 04/20/18 20:24 Dose: 30 ml Amlodipine Besylate (Norvasc -) 2.5 mg PO DAILY [facility] Last Admin: 04/23/18 09:15 Dose: 2.5 mg Benzocaine/Menthol (Cepacol Lozenge -) 1 each MM PRN PRN PRN Reason: SORE THROAT Gemfibrozil (Lopid -) 600 mg PO BID@0700,1630 [facility] Last Admin: 04/23/18 05:59 Dose: 600 mg Insulin Aspart (Novolog Vial Sliding Scale -) 1 vial SQ [facility]; Protocol Last Admin: 04/23/18 05:59 Dose: Not Given Insulin Detemir (Levemir Vial) 20 units SQ BIDI [facility] Last Admin: 04/23/18 05:59 Dose: 20 units Isosorbide Mononitrate (Imdur -) 30 mg PO DAILY [facility] Last Admin: 04/23/18 09:15 Dose: 30 mg Metoprolol Tartrate (Lopressor -) 25 mg PO BID [facility] Last Admin: 04/23/18 09:15 Dose: 25 mg Ranitidine HCl (Zantac -) 150 mg PO DAILY [facility] Last Admin: 04/23/18 09:15 Dose: 150 mg Ranolazine (Ranexa -) 500 mg PO BID [facility] Last Admin: 04/23/18 09:15 Dose: 500 mg Tamsulosin HCl (Flomax -) 0.4 mg PO DAILY@0830 [facility] Last Admin: 04/23/18 08:44 Dose: 0.4 mg Warfarin Sodium (Coumadin -) 5 mg PO DAILY [facility] - Objective Vital Signs: Vital Signs Temperature 97.4 F L 04/23/18 06:00 Pulse Rate 56 L 04/23/18 06:00 Respiratory Rate 20 04/23/18 06:00 Blood Pressure 110/58 04/23/18 06:00 O2 Sat by Pulse Oximetry (%) 94 L 04/22/18 21:00 Constitutional: Yes: No Distress, Calm Neck: Yes: Supple Cardiovascular: Yes: Regular Rate and Rhythm Respiratory: Yes: Regular, Diminished Gastrointestinal: Yes: Soft, Hypoactive Bowel Sounds Genitourinary: Yes: Coughlin Present Edema: No Labs: CBC, BMP 04/23/18 06:40 04/16/18 06:00 INR, PTT INR 1.67 (0.82-1.09) H 04/23/18 06:40 Problem List - Problems (1) Acute urinary retention Code(s): R33.8 - OTHER RETENTION OF URINE (2) CKD (chronic kidney disease) Code(s): N18.9 - CHRONIC KIDNEY DISEASE, UNSPECIFIED Qualifiers: Chronic kidney disease stage: unspecified stage Qualified Code(s): N18.9 - Chronic kidney disease, unspecified (3) LORY (acute kidney injury) Code(s): N17.9 - ACUTE KIDNEY FAILURE, UNSPECIFIED (4) Atrial fibrillation by electrocardiography Code(s): I48.91 - UNSPECIFIED ATRIAL FIBRILLATION (5) CAD (coronary artery disease) Code(s): I25.10 - ATHSCL HEART DISEASE OF [place] CORONARY ARTERY W/O ANG PCTRS Qualifiers: Coronary Disease-Associated Artery/Lesion type: [place] artery [place] vs. transplanted heart: [place] heart Associated angina: without angina Qualified Code(s): I25.10 - Atherosclerotic heart disease of [place] coronary artery without angina pectoris (6) CVA (cerebral vascular accident) Code(s): I63.9 - CEREBRAL INFARCTION, UNSPECIFIED Qualifiers: CVA mechanism: embolism Precerebral and cerebral artery: middle cerebral artery Laterality of affected vessel: right Qualified Code(s): I63.411 - Cerebral infarction due to embolism of right middle cerebral artery (7) Cholelithiasis without obstruction Code(s): K80.20 - CALCULUS OF GALLBLADDER W/O CHOLECYSTITIS W/O OBSTRUCTION (8) 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 due to underlying condition with hyperglycemia Code(s): E08.65 - DIABETES DUE TO UNDERLYING CONDITION W HYPERGLYCEMIA Qualifiers: 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 detention insulin use: with terminal makeup operator use Qualified Code( s): E08.65 - 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 due to underlying condition with hyperglycemia; Z79.4 - [facility] (current) use of insulin (9) Coughlin catheter problem Code(s): T83.9XXA - UNSP COMPLICATION OF GENITOURINARY PROSTH DEV/GRFT, INIT Qualifiers: Encounter type: initial encounter Qualified Code(s): T83.9XXA - Unspecified complication of genitourinary prosthetic device, implant and graft, initial encounter (10) HTN (hypertension) Code(s): I10 - ESSENTIAL (PRIMARY) HYPERTENSION Qualifiers: Hypertension type: essential hypertension Qualified Code(s): I10 - Essential (primary) hypertension (11) History of cardiac radiofrequency ablation (RFA) Code(s): Z98.89 - OTHER SPECIFIED POSTPROCEDURAL STATES * DO NOT USE * (12) Hyperlipidemia Code(s): E78.5 - HYPERLIPIDEMIA, UNSPECIFIED Qualifiers: Hyperlipidemia type: mixed hyperlipidemia Qualified Code(s): E78.2 - Mixed hyperlipidemia (13) Obstructive sleep apnea of adult Code(s): G47.33 - OBSTRUCTIVE SLEEP APNEA (ADULT) (PEDIATRIC) (14) S/P coronary artery stent placement Code(s): Z95.5 - PRESENCE OF CORONARY ANGIOPLASTY IMPLANT AND GRAFT (15) Urinary retention Code(s): R33.9 - RETENTION OF URINE, UNSPECIFIED (16) Pre-operative cardiovascular examination Code(s): Z01.810 - ENCOUNTER FOR PREPROCEDURAL CARDIOVASCULAR EXAMINATION Assessment/Plan Echocardiography Nov 30, 2017 revealed normal LV size and function, bi-atrial dilatation, with mild MR Echocardiography dated 12/21/2015 normal LV size and function, with mild TR and [place] MPI study dated 12/21/2015 revealed small-moderate size apical defect compatible with mild ischemia with preserved LV function 1. Lower complicated UTI (h/o ESBL UTI and nephrolithiasis requiring ureteral stent/nephrostomy tube 01/2017), UCx with yeast 2. Pre-op CV evalutaion prior to TURP -> BPH with recurrent coughlin blockage 3. LORY on CKD stage II (baseline Cr 1.3-.1.5) likely from retention/UTI +/- hypovolumia, resolved 4. 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 Paroxysmal atrial fibrillation [id number] score of 6 on NOAC's - ? noncompliance vs. breakthrough neurologic event (NOAC failure) 6. CAD post multi-vessel PCI stent angina pectoris, with evidence of demand ischemic injury, stable on medical therapy 7. Diastolic LV dysfunction with chronic class I NYHA classification LV failure , compensated/euvolemic 8. HTN 9. DM 10. Hyperlipidemia 11. History of KATJA 12. Anemia Plan: 1. Given absence of symptoms of acute coronary syndrome, decompensated CHF or malignant arrhythmia and recent low risk stress testing within last 5 years, may proceed with TURP from CV-standpoint without further testing once INR acceptable 2. Continue Lopressor 25 bid as hemodynamics permit 3. Continue Amlodipine 2.5 qd 4. Continue Cozaar 50 qd with close mentoring of renal function, hemodynamics permitting 5. Continue Imdur 30 qd 6. Continue Ranexa 500 bid 7. D/c Coumadin and ASA 81 qd pre-op and resume once post-procedure hemostasis has been achieved 8. Continue Lopid 600 bid and Welchol 625 bid 9. PT, GI prophylaxis
--- NOTE | 2018-04-23 14:12 | PN ---
Teaching Attending Note Name of Resident: Yung Damon ATTENDING PHYSICIAN STATEMENT I saw and evaluated the patient. I reviewed the resident's note and discussed the case with the resident. I agree with the resident's findings and plan as documented with exceptions below. SUBJECTIVE: Patient seen and examined. vague abdominal discomfort, unchanged, no new complaints. OBJECTIVE: Vital Signs Period Temp Pulse Resp BP Sys/Crawford Pulse Ox Last 24 Hr 97.4 F-97.8 F 52-78 20-20 110-129/56-92 94-95 Intake & Output 04/20/18 04/21/18 04/22/18 04/23/18 23:59 23:59 23:59 23:59 Intake Total 1380 720 260 Output Total 1650 1700 3200 700 Balance -270 -980 -3200 -440 Weight 223 lb General: lying in bed in no acute distress Abdomen:soft, NT, ND, no CVA tenderness, minimal suprapubic tenderness Active Medications Acetaminophen (Tylenol -) 650 mg PO Q4H PRN PRN Reason: PAIN LEVEL 1-5 Last Admin: 04/20/18 20:24 Dose: 650 mg Al Hydroxide/Mg Hydroxide (Mylanta Oral Suspension -) 30 ml PO Q6H PRN PRN Reason: DYSPEPSIA Last Admin: 04/20/18 20:24 Dose: 30 ml Amlodipine Besylate (Norvasc -) 2.5 mg PO DAILY [facility] Last Admin: 04/23/18 09:15 Dose: 2.5 mg Benzocaine/Menthol (Cepacol Lozenge -) 1 each MM PRN PRN PRN Reason: SORE THROAT Gemfibrozil (Lopid -) 600 mg PO BID@0700,1630 [facility] Last Admin: 04/23/18 05:59 Dose: 600 mg Insulin Aspart (Novolog Vial Sliding Scale -) 1 vial SQ ACHS [facility]; Protocol Last Admin: 04/23/18 11:36 Dose: 6 unit Insulin Detemir (Levemir Vial) 20 units SQ BIDI [facility] Last Admin: 04/23/18 05:59 Dose: 20 units Isosorbide Mononitrate (Imdur -) 30 mg PO DAILY [facility] Last Admin: 04/23/18 09:15 Dose: 30 mg Metoprolol Tartrate (Lopressor -) 25 mg PO BID [facility] Last Admin: 04/23/18 09:15 Dose: 25 mg Ranitidine HCl (Zantac -) 150 mg PO DAILY [facility] Last Admin: 04/23/18 09:15 Dose: 150 mg Ranolazine (Ranexa -) 500 mg PO BID [facility] Last Admin: 04/23/18 09:15 Dose: 500 mg Tamsulosin HCl (Flomax -) 0.4 mg PO DAILY@0830 [facility] Last Admin: 04/23/18 08:44 Dose: 0.4 mg Warfarin Sodium (Coumadin -) 5 mg PO DAILY [facility] Laboratory Results - last 24 hr 04/22/18 04/22/18 04/23/18 17:10 20:52 05:55 WBC RBC Hgb Hct MCV MCH MCHC RDW Plt Count MPV Absolute Neuts (auto) Neutrophils % Lymphocytes % Monocytes % Eosinophils % Basophils % Nucleated RBC % PT with INR INR PTT (Actin FS) POC Glucometer 212 205 115 04/23/18 04/23/18 04/23/18 06:40 06:40 11:21 WBC 6.3 RBC 4.19 Hgb 13.0 Hct 38.6 MCV 92.2 MCH 31.0 MCHC 33.6 RDW 14.0 Plt Count 408 MPV 8.9 Absolute Neuts (auto) 2.5 Neutrophils % 40.5 L Lymphocytes % 43.6 H Monocytes % 10.8 H Eosinophils % 4.0 Basophils % 1.1 Nucleated RBC % 0 PT with INR 18.90 H INR 1.67 H PTT (Actin FS) 39.1 H POC Glucometer 264 ASSESSMENT AND PLAN: 72 yo M with PMHx of HTN, hyperlipidemia, diabetes, atrial flutter, AFIB (on coumadin), CAD (s/p stent), past TIAs, BPH, CKD, diverticulosis, and chronic hip pain (3X broken hip) admitted with lower complicated UTI, hyperglycemia, and inability to care for at home. -Lower complicated UTI (h/o ESBL UTI and nephrolithiasis requiring ureteral stent/nephrostomy tube 01/2017), UCx with yeast -BPH with recurrent coughlin blockage -LORY on CKD stage II (baseline Cr 1.3-.1.5) likely from retention/UTI +/- hypovolumia, resolved -COumadin coagulopathy, likely from non compliance -Hyperglycemia/IDDM -Urinary retention due to UTI/BPH -Calf pain, resolved, neg duplex -Hpypomagnesemia -CAD -h/o diastolic HF Plan: Discussed with urology, monitor 48-72 to ensure no concerns with coughlin or new hematuria. ASA need to be held for 1 week. Recommend outpatient follow up if no further concerns with coughlin inhouse. Resume coumadin 5 mg daily with outpatientfollow up. s/p 7 days of fluconazole. repeat urine cultures neg. ID input noted. CT A/P noted, no evidence of kidney stones. Levemir BID, ISS, diabetic diet. Replete Mg prn. Psych input noted. Discuss d/c home with services in 48 hours if no concerns and no further surgical intervention anticipated. Plan discussed with patient and all questions answered.
--- NOTE | 2018-04-23 15:25 | PN ---
Physical Exam: SUBJECTIVE: Patient seen and examined at bedside. Vague abdominal pain. OBJECTIVE: Vital Signs Period Temp Pulse Resp BP Sys/Crawford Pulse Ox Last 24 Hr 97.4 F-97.8 F 52-78 16-20 110-132/56-92 94-95 Gen: comfortable in chair in NAD HEENT: NCAT, EOMI Neck: supple, no jvd Cardio: s1s2 no murmurs/rubs/gallops appreciated Pulm: cta Abd: vague mild tenderness still present, normal bs, soft, cath draining Ext: 2+ pulses, no edema Laboratory Results - last 24 hr 04/22/18 04/22/18 04/23/18 17:10 20:52 05:55 WBC RBC Hgb Hct MCV MCH MCHC RDW Plt Count MPV Absolute Neuts (auto) Neutrophils % Lymphocytes % Monocytes % Eosinophils % Basophils % Nucleated RBC % PT with INR INR PTT (Actin FS) POC Glucometer 212 205 115 04/23/18 04/23/18 04/23/18 06:40 06:40 11:21 WBC 6.3 RBC 4.19 Hgb 13.0 Hct 38.6 MCV 92.2 MCH 31.0 MCHC 33.6 RDW 14.0 Plt Count 408 MPV 8.9 Absolute Neuts (auto) 2.5 Neutrophils % 40.5 L Lymphocytes % 43.6 H Monocytes % 10.8 H Eosinophils % 4.0 Basophils % 1.1 Nucleated RBC % 0 PT with INR 18.90 H INR 1.67 H PTT (Actin FS) 39.1 H POC Glucometer 264 Active Medications Generic Name Dose Route Start Last Admin Trade Name Noahq PRN Reason Stop Dose Admin Acetaminophen 650 mg 04/19/18 19:54 04/20/18 20:24 Tylenol - PO 650 mg Q4H PRN Administration PAIN LEVEL 1-5 Al Hydroxide/Mg Hydroxide 30 ml 04/19/18 19:54 04/20/18 20:24 Mylanta Oral Suspension - PO 30 ml Q6H PRN Administration DYSPEPSIA Amlodipine Besylate 2.5 mg 04/11/18 10:00 04/23/18 09:15 Norvasc - PO 2.5 mg DAILY LONNIE Administration Benzocaine/Menthol 1 each 04/13/18 01:19 Cepacol Lozenge - MM PRN PRN SORE THROAT Gemfibrozil 600 mg 04/11/18 16:30 04/23/18 05:59 Lopid - PO 600 mg BID@0700,1630 LONNIE Administration Insulin Aspart 1 vial 04/11/18 07:00 04/23/18 11:36 Novolog Vial Sliding Scale - SQ 6 unit ACHS LONNIE Administration Protocol Insulin Detemir 20 units 04/13/18 07:56 04/23/18 05:59 Levemir Vial SQ 20 units BIDI LONNIE Administration Isosorbide Mononitrate 30 mg 04/11/18 10:00 04/23/18 09:15 Imdur - PO 30 mg DAILY LONNIE Administration Metoprolol Tartrate 25 mg 04/15/18 09:09 04/23/18 09:15 Lopressor - PO 25 mg BID LONNIE Administration Ranitidine HCl 150 mg 04/11/18 10:00 04/23/18 09:15 Zantac - PO 150 mg DAILY LONNIE Administration Ranolazine 500 mg 04/11/18 10:00 04/23/18 09:15 Ranexa - PO 500 mg BID LONNIE Administration Tamsulosin HCl 0.4 mg 04/11/18 08:30 04/23/18 08:44 Flomax - PO 0.4 mg DAILY@0830 LONNIE Administration Warfarin Sodium 5 mg 04/23/18 18:00 Coumadin - PO DAILY [facility] ASSESSMENT/PLAN: Pt is a 72 y/o M with PMH AF and BPH who presents to ED with urinary retention, dysuria. Pt found to have UTI and LORY. #Retention -likely 2/2 BPH and/or med noncompliance -initially straight cath yielded approx 300 cc -Flomax -monitor -Urology consulted in ED -[place] repeatedly stopped draining and required replacement/repositioning. Currently draining well -Urology is considering TURP. Will see the pt in clinic as pt has been getting ASA and must be off ASA for at least 1 week. -Pt seen by Cardio. 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 Yung Damon MD PGY-1 IM Visit type - Emergency Visit Emergency Visit: No - New Patient This patient is new to me today: No - Critical Care Critical Care patient: No - Discharge Referral Referred to [facility] Med P.C.: No
[2018-04-23] MEDS: WARFARIN NA 5 MG TABLET (UD) PO SCH (17:03)
[2018-04-23] MEDS ORDERED: WARFARIN NA 5 MG TABLET (UD) PO ONE (18:00)
[2018-04-24] MEDS: INSULIN SLIDING SCALE (NOVOLOG) 1 VIAL SQ SCH ×4 (06:09→21:05)
[2018-04-24] MEDS: GEMFIBROZIL 600 MG TABLET (FP) PO SCH ×2 (06:11→16:54)
[2018-04-24] MEDS: INSULIN (LEVEMIR) 100 UNITS/ML UNITS SQ SCH ×2 (06:11→16:54)
[2018-04-24 06:57] LABS: INR 1.48 (0.82-1.09); PROTHROMBIN TIME (PATIENT) 16.7 SEC (9.7-13.0)
[2018-04-24] MEDS: RANOLAZINE E.R. 500 MG TABLET (FP) PO SCH ×2 (09:15→21:04)
[2018-04-24] MEDS: RANITIDINE HCL 150 MG TABLET (FP) PO SCH (09:16)
[2018-04-24] MEDS ORDERED: HEPARIN NA (PORCINE) 5,000 UNITS/ML 1ML VIAL IVPUSH PRN ×2 (09:16)
[2018-04-24] MEDS: amLODIPine BESYLATE 2.5 MG TABLET (FP) PO SCH (09:16)
[2018-04-24] MEDS: TAMSULOSIN HCL 0.4 MG CAP.ER.24H (FP) PO SCH (09:16)
[2018-04-24] MEDS: ISOSORBIDE MONONITRATE 30 MG TAB.SR.24H (FP) PO SCH (09:17)
[2018-04-24] MEDS: METOPROLOL TARTRATE 25 MG TABLET (FP) PO SCH ×2 (09:17→21:04)
[2018-04-24] MEDS: WARFARIN NA 5 MG TABLET (UD) PO SCH (09:17)
--- NOTE | 2018-04-24 09:20 | PN ---
Physical Exam: SUBJECTIVE: Patient seen and examined, no complaints, doingn well. OBJECTIVE: Vital Signs Period Temp Pulse Resp BP Sys/Crawford Pulse Ox Last 24 Hr 97.1 F-97.8 F 54-75 16-20 113-136/56-72 95-99 GENERAL: sitting in bed in no acute distress Chest: CTAB, no rales or wheezing Abdomen: soft, NT, obese, no CVA or suprapubic tenderness Extremities: no edema Laboratory Results - last 24 hr 04/23/18 04/23/18 04/23/18 11:21 16:28 21:54 PT with INR INR POC Glucometer 264 205 215 04/24/18 04/24/18 06:05 06:08 PT with INR 16.70 H INR 1.48 H POC Glucometer 100 Active Medications Generic Name Dose Route Start Last Admin Trade Name Freq PRN Reason Stop Dose Admin Acetaminophen 650 mg 04/19/18 19:54 04/20/18 20:24 Tylenol - PO 650 mg Q4H PRN Administration PAIN LEVEL 1-5 Al Hydroxide/Mg Hydroxide 30 ml 04/19/18 19:54 04/20/18 20:24 Mylanta Oral Suspension - PO 30 ml Q6H PRN Administration DYSPEPSIA Amlodipine Besylate 2.5 mg 04/11/18 10:00 04/24/18 09:16 Norvasc - PO 2.5 mg DAILY LONNIE Administration Benzocaine/Menthol 1 each 04/13/18 01:19 Cepacol Lozenge - MM PRN PRN SORE THROAT Gemfibrozil 600 mg 04/11/18 16:30 04/24/18 06:11 Lopid - PO 600 mg BID@0700,1630 LONNIE Administration Heparin Sodium (Porcine) 1,000 unit 04/24/18 09:16 Heparin - IVPUSH PRN PRN Heparin Heparin Sodium (Porcine) 5,000 unit 04/24/18 09:16 Heparin - IVPUSH PRN PRN Heparin HEPARIN SOD,PORK IN 0.45% NACL 25,000 units in 500 mls @ 20 mls/hr 04/24/18 09 :30 Heparin-1/2ns 25,000 Units/500 IVPB TITR LONNIE Protocol 1,000 UNITS/HR Insulin Aspart 1 vial 04/11/18 07:00 04/24/18 06:09 Novolog Vial Sliding Scale - SQ Not Given ACHS [facility] Protocol Insulin Detemir 20 units 04/13/18 07:56 04/24/18 06:11 Levemir Vial SQ 20 units BIDI LONNIE Administration Isosorbide Mononitrate 30 mg 04/11/18 10:00 04/24/18 09:17 Imdur - PO 30 mg DAILY LONNIE Administration Metoprolol Tartrate 25 mg 04/15/18 09:09 04/24/18 09:17 Lopressor - PO 25 mg BID LONNIE Administration Ranitidine HCl 150 mg 04/11/18 10:00 04/24/18 09:16 Zantac - PO 150 mg DAILY LONNIE Administration Ranolazine 500 mg 04/11/18 10:00 04/24/18 09:15 Ranexa - PO 500 mg BID LONNIE Administration Tamsulosin HCl 0.4 mg 04/11/18 08:30 04/24/18 09:16 Flomax - PO 0.4 mg DAILY@0830 LONNIE Administration Warfarin Sodium 5 mg 04/23/18 18:00 04/24/18 09:17 Coumadin - PO 5 mg DAILY LONNIE Administration ASSESSMENT/PLAN: 72 yo M with PMHx of HTN, hyperlipidemia, diabetes, atrial flutter, AFIB (on coumadin), CAD (s/p stent), past TIAs, BPH, CKD, diverticulosis, and chronic hip pain (3X broken hip) admitted with lower complicated UTI, hyperglycemia, and inability to care for at home. -Lower complicated UTI (h/o ESBL UTI and nephrolithiasis requiring ureteral stent/nephrostomy tube 01/2017), UCx with yeast -BPH with recurrent coughlin blockage -LORY on CKD stage II (baseline Cr 1.3-.1.5) likely from retention/UTI +/- hypovolumia, resolved -COumadin coagulopathy, likely from non compliance -Hyperglycemia/IDDM -Urinary retention due to UTI/BPH -Calf pain, resolved, neg duplex -Hpypomagnesemia -CAD -h/o diastolic HF Plan: Discussed with urology, monitor 48-72 to ensure no concerns with coughlin or new hematuria. ASA need to be held for 1 week. Recommend outpatient follow up if no further concerns with coughlin inhouse. COumadin 5 mg daily resumed. Start heparin drip while inhouse, monitor INR. s/p 7 days of fluconazole. repeat urine cultures neg. ID input noted. CT A/P noted, no evidence of kidney stones. Levemir BID, ISS, diabetic diet. Replete Mg prn. Psych input noted. Discuss d/c home with services on Thursday if no new events and dispo arranged. Plan discussed with patient and all questions answered. Visit type - Emergency Visit Emergency Visit: No - New Patient This patient is new to me today: No - Critical Care Critical Care patient: No - Discharge Referral Referred to [facility] Med P.C.: No
--- NOTE | 2018-04-24 10:12 | PN ---
Progress Note, Physician Chief Complaint: Events noted Await further plans regarding TURP History of Present Illness: Patient was seen and examined. Awake and alert. Chart was reviewed Denies chest pain, SOB or palpitations - Current Medication List Current Medications: Active Medications Acetaminophen (Tylenol -) 650 mg PO Q4H PRN PRN Reason: PAIN LEVEL 1-5 Last Admin: 04/20/18 20:24 Dose: 650 mg Al Hydroxide/Mg Hydroxide (Mylanta Oral Suspension -) 30 ml PO Q6H PRN PRN Reason: DYSPEPSIA Last Admin: 04/20/18 20:24 Dose: 30 ml Amlodipine Besylate (Norvasc -) 2.5 mg PO DAILY [facility] Last Admin: 04/24/18 09:16 Dose: 2.5 mg Benzocaine/Menthol (Cepacol Lozenge -) 1 each MM PRN PRN PRN Reason: SORE THROAT Gemfibrozil (Lopid -) 600 mg PO BID@0700,1630 [facility] Last Admin: 04/24/18 06:11 Dose: 600 mg Heparin Sodium (Porcine) (Heparin -) 1,000 unit IVPUSH PRN PRN PRN Reason: Heparin Heparin Sodium (Porcine) (Heparin -) 5,000 unit IVPUSH PRN PRN PRN Reason: Heparin HEPARIN SOD,PORK IN 0.45% NACL (Heparin-1/2ns 25,000 Units/500) 25,000 units in 500 mls @ 20 mls/hr IVPB TITR [facility]; Protocol Insulin Aspart (Novolog Vial Sliding Scale -) 1 vial SQ ACHS [facility]; Protocol Last Admin: 04/24/18 06:09 Dose: Not Given Insulin Detemir (Levemir Vial) 20 units SQ BIDI [facility] Last Admin: 04/24/18 06:11 Dose: 20 units Isosorbide Mononitrate (Imdur -) 30 mg PO DAILY [facility] Last Admin: 04/24/18 09:17 Dose: 30 mg Metoprolol Tartrate (Lopressor -) 25 mg PO BID [facility] Last Admin: 04/24/18 09:17 Dose: 25 mg Ranitidine HCl (Zantac -) 150 mg PO DAILY [facility] Last Admin: 04/24/18 09:16 Dose: 150 mg Ranolazine (Ranexa -) 500 mg PO BID [facility] Last Admin: 04/24/18 09:15 Dose: 500 mg Tamsulosin HCl (Flomax -) 0.4 mg PO DAILY@0830 [facility] Last Admin: 04/24/18 09:16 Dose: 0.4 mg Warfarin Sodium (Coumadin -) 5 mg PO DAILY [facility] Last Admin: 04/24/18 09:17 Dose: 5 mg - Objective Vital Signs: Vital Signs Temperature 97.6 F 04/23/18 22:00 Pulse Rate 54 L 04/23/18 22:00 Respiratory Rate 20 04/23/18 22:00 Blood Pressure 126/68 04/23/18 22:00 O2 Sat by Pulse Oximetry (%) 99 04/23/18 21:00 HENT: Yes: Atraumatic Neck: Yes: Supple Cardiovascular: Yes: Regular Rate and Rhythm, Murmur (Soft SM), S1, S2 Respiratory: Yes: CTA Bilaterally Gastrointestinal: Yes: Normal Bowel Sounds, Soft. No: Tenderness Edema: No Labs: CBC, BMP 04/23/18 06:40 INR, PTT INR 1.48 (0.82-1.09) H 04/24/18 06:05 Problem List - Problems (1) Acute urinary retention Code(s): R33.8 - OTHER RETENTION OF URINE (2) CKD (chronic kidney disease) Code(s): N18.9 - CHRONIC KIDNEY DISEASE, UNSPECIFIED Qualifiers: Chronic kidney disease stage: unspecified stage Qualified Code(s): N18.9 - Chronic kidney disease, unspecified (3) Pre-operative cardiovascular examination Code(s): Z01.810 - ENCOUNTER FOR PREPROCEDURAL CARDIOVASCULAR EXAMINATION (4) UTI (urinary tract infection) Code(s): N39.0 - URINARY TRACT INFECTION, SITE NOT SPECIFIED Qualifiers: Urinary tract infection type: acute cystitis Hematuria presence: with hematuria Qualified Code(s): N30.01 - Acute cystitis with hematuria (5) LORY (acute kidney injury) Code(s): N17.9 - ACUTE KIDNEY FAILURE, UNSPECIFIED (6) Afib Code(s): I48.91 - UNSPECIFIED ATRIAL FIBRILLATION Qualifiers: Atrial fibrillation type: paroxysmal Qualified Code(s): I48.0 - Paroxysmal atrial fibrillation (7) CAD (coronary artery disease) Code(s): I25.10 - ATHSCL HEART DISEASE OF [place] CORONARY ARTERY W/O ANG PCTRS Qualifiers: Coronary Disease-Associated Artery/Lesion type: [place] artery [place] vs. transplanted heart: [place] heart Associated angina: without angina Qualified Code(s): I25.10 - Atherosclerotic heart disease of [place] coronary artery without angina pectoris (8) CVA (cerebral vascular accident) Code(s): I63.9 - CEREBRAL INFARCTION, UNSPECIFIED Qualifiers: CVA mechanism: embolism Precerebral and cerebral artery: middle cerebral artery Laterality of affected vessel: right Qualified Code(s): I63.411 - Cerebral infarction due to embolism of right middle cerebral artery (9) Demand ischemia Code(s): I24.8 - OTHER FORMS OF ACUTE ISCHEMIC HEART DISEASE (10) 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 Code(s): E11.9 - TYPE 2 DIABETES MELLITUS WITHOUT COMPLICATIONS Qualifiers: 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 type: type 2 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 termite treater insulin use: without alf use 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 complication status: without complication Qualified Code(s): E11.9 - Type 2 diabetes mellitus without complications (11) HTN (hypertension) Code(s): I10 - ESSENTIAL (PRIMARY) HYPERTENSION Qualifiers: Hypertension type: essential hypertension Qualified Code(s): I10 - Essential (primary) hypertension (12) History of cardiac radiofrequency ablation (RFA) Code(s): Z98.89 - OTHER SPECIFIED POSTPROCEDURAL STATES * DO NOT USE * (13) Hypercholesteremia Code(s): E78.0 - PURE HYPERCHOLESTEROLEMIA * DO NOT USE * (14) NSTEMI (non-ST elevated myocardial infarction) Code(s): I21.4 - NON-ST ELEVATION (NSTEMI) MYOCARDIAL INFARCTION (15) Obstructed Coughlin catheter Code(s): T83.098A - [facility] COMPL OF OTHER URINARY CATHETER, INITIAL ENCOUNTER Qualifiers: Encounter type: initial encounter (16) Obstructive sleep apnea of adult Code(s): G47.33 - OBSTRUCTIVE SLEEP APNEA (ADULT) (PEDIATRIC) (17) S/P coronary artery stent placement Code(s): Z95.5 - PRESENCE OF CORONARY ANGIOPLASTY IMPLANT AND GRAFT (18) TIA (transient ischemic attack) Code(s): G45.9 - TRANSIENT CEREBRAL ISCHEMIC ATTACK, UNSPECIFIED Qualifiers: Transient cerebral ischemia type: unspecified Qualified Code(s): G45.9 - Transient cerebral ischemic attack, unspecified Assessment/Plan 1. Lower complicated UTI (h/o ESBL UTI and nephrolithiasis requiring ureteral stent/nephrostomy tube), Urine culture with yeast 2. Pre-Op CV evalutaion prior to TURP for BPH with recurrent coughlin blockage 3. LORY on CKD stage II (baseline Cr 1.3-.1.5) likely from retention/UTI +/- hypovolumia 4. 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 Paroxysmal atrial fibrillation [id number] score of 6 - ? noncompliance vs. breakthrough neurologic event (NOAC failure) 6. CAD post multi-vessel PCI stent angina pectoris, with evidence of demand ischemic injury, stable on medical therapy 7. Diastolic LV dysfunction with chronic class I NYHA classification LV failure , compensated/euvolemic 8. HTN 9. DM 10. Hyperlipidemia 11. History of KATJA 12. Anemia PLAN: 1. Given absence of symptoms of acute coronary syndrome, decompensated CHF or malignant arrhythmia and recent low risk stress testing within last 5 years, may proceed with TURP from cardiovascular standpoint 2. Continue Lopressor 25 bid as hemodynamics permit 3. Continue Amlodipine 2.5 qd 4. Continue Cozaar 50 qd with close mentoring of renal function, hemodynamics permitting 5. Continue Imdur 30 qd 6. Continue Ranexa 500 bid 7. Coumadin held and ASA 81 qd pre-op and resume once post-procedure hemostasis has been achieved 8. Continue Lopid 600 bid and Welchol 625 bid 9. GI prophylaxis Further plans are to follow Riley Brandt MD
[2018-04-24] MEDS: HEPARIN SOD,PORK IN 0.45% NACL 25,000 UNITS/500 ML INFUS.BAG IVPB SCH (11:08)
[2018-04-24] MEDS ORDERED: ACETAMINOPHEN 325 MG TABLET (FP) PO PRN (19:16)
[2018-04-24] MEDS ORDERED: BENZOCAINE/MENTH/CETYLPYRD CL 1 EACH LOZENGE MM PRN (19:16)
[2018-04-24] MEDS ORDERED: MAG HYDROX/AL HYDROX/SIMETH 30 ML UNIT-DOSE CUP PO PRN (19:16)
[2018-04-25] MEDS: GEMFIBROZIL 600 MG TABLET (FP) PO SCH ×2 (06:29→17:01)
[2018-04-25] MEDS: INSULIN SLIDING SCALE (NOVOLOG) 1 VIAL SQ SCH ×4 (06:29→21:43)
[2018-04-25] MEDS: INSULIN (LEVEMIR) 100 UNITS/ML UNITS SQ SCH ×2 (06:29→17:01)
[2018-04-25 07:10] LABS: BASO % 1.1 % (0-2.0); EOS % 3.9 % (0-4.5); HEMATOCRIT 37.3 % (35.4-49); HEMOGLOBIN 12.5 GM/dL (11.7-16.9); LYMPH % 51.1 % (8-40); MCHC 33.6 g/dl (32.0-35.9); MEAN CELL VOLUME 92.2 fl (80-96); MEAN PLT VOLUME 9.2 fl (7.5-11.1); MONO % 8.1 % (3.8-10.2); NEUT % 35.8 % (42.8-82.8); PLATELET COUNT 385 K/MM3 (134-434); RBC 4.05 M/mm3 (4.00-5.60); RDW 14.1 % (11.9-15.9); WHITE BLOOD COUNT 6.8 K/mm3 (4.0-10.0)
[2018-04-25 07:21] LABS: INR 1.67 (0.82-1.09); PROTHROMBIN TIME (PATIENT) 18.9 SEC (9.7-13.0)
[2018-04-25 07:50] LABS: ANION GAP 8 (8-16); BLOOD UREA NITROGEN 36 mg/dL (7-18); CALCIUM 8.9 mg/dL (8.5-10.1); CHLORIDE 107 mmol/L (98-107); CO2 23 mmol/L (21-32); CREATININE 1.6 mg/dL (0.7-1.3); GLUCOSE,RANDOM 141 mg/dL (74-106); SODIUM 138 mmol/L (136-145)
--- NOTE | 2018-04-25 09:04 | PN ---
Progress Note, Physician Chief Complaint: Events noted Await further plans regarding TURP History of Present Illness: Patient was seen and examined. Awake and alert. Chart was reviewed Denies chest pain, SOB or palpitations Not in distress - Current Medication List Current Medications: Active Medications Acetaminophen (Tylenol -) 650 mg PO Q4H PRN PRN Reason: PAIN LEVEL 1-5 Al Hydroxide/Mg Hydroxide (Mylanta Oral Suspension -) 30 ml PO Q6H PRN PRN Reason: DYSPEPSIA Amlodipine Besylate (Norvasc -) 2.5 mg PO DAILY [facility] Benzocaine/Menthol (Cepacol Lozenge -) 1 each MM PRN PRN PRN Reason: SORE THROAT Gemfibrozil (Lopid -) 600 mg PO BID@0700,1630 [facility] Last Admin: 04/25/18 06:29 Dose: 600 mg Heparin Sodium (Porcine) (Heparin -) 1,000 unit IVPUSH PRN PRN PRN Reason: Heparin Heparin Sodium (Porcine) (Heparin -) 5,000 unit IVPUSH PRN PRN PRN Reason: Heparin HEPARIN SOD,PORK IN 0.45% NACL (Heparin-1/2ns 25,000 Units/500) 25,000 units in 500 mls @ 20 mls/hr IVPB TITR [facility]; Protocol Last Admin: 04/24/18 11:08 Dose: 1,000 units/hr, 20 mls/hr Insulin Aspart (Novolog Vial Sliding Scale -) 1 vial SQ ACHS [facility]; Protocol Last Admin: 04/25/18 06:29 Dose: Not Given Insulin Detemir (Levemir Vial) 20 units SQ BIDI [facility] Last Admin: 04/25/18 06:29 Dose: 20 units Isosorbide Mononitrate (Imdur -) 30 mg PO DAILY [facility] Metoprolol Tartrate (Lopressor -) 25 mg PO BID [facility] Last Admin: 04/24/18 21:04 Dose: 25 mg Ranitidine HCl (Zantac -) 150 mg PO DAILY [facility] Ranolazine (Ranexa -) 500 mg PO BID [facility] Last Admin: 04/24/18 21:04 Dose: 500 mg Tamsulosin HCl (Flomax -) 0.4 mg PO DAILY@0830 [facility] Warfarin Sodium (Coumadin -) 5 mg PO DAILY@1800 [facility] - Objective Vital Signs: Vital Signs Temperature 97.7 F 04/25/18 06:00 Pulse Rate 68 04/25/18 06:00 Respiratory Rate 20 04/25/18 06:00 Blood Pressure 134/67 04/25/18 06:00 O2 Sat by Pulse Oximetry (%) 98 04/24/18 21:00 Neck: Yes: Supple Cardiovascular: Yes: Pulse Irregular, Murmur (Soft SM), S1, S2 Respiratory: Yes: CTA Bilaterally Gastrointestinal: Yes: Normal Bowel Sounds, Soft. No: Tenderness Edema: No Additional Findings/Remarks: - Review of Systems Constitutional: denies: Chills, Fever Cardiovascular: denies: Chest Pain, Shortness of Breath. denies: Palpitations Respiratory: denies: SOB, SOB on Exertion. denies: Cough, Hemoptysis, Orthopnea , PND Gastrointestinal: denies: Abdominal Pain, Constipation, Diarrhea, Melena, Nausea , Rectal Bleeding, Vomiting Musculoskeletal: denies: Joint Pain. denies: Back Pain Neurological: denies: Unsteady Gait, Weakness. denies: Dizziness, Headache, Seizure, Syncope Labs: CBC, BMP 04/25/18 06:00 04/25/18 06:00 INR, PTT INR 1.67 (0.82-1.09) H 04/25/18 06:00 Problem List - Problems (1) Acute urinary retention Code(s): R33.8 - OTHER RETENTION OF URINE (2) CKD (chronic kidney disease) Code(s): N18.9 - CHRONIC KIDNEY DISEASE, UNSPECIFIED Qualifiers: Chronic kidney disease stage: unspecified stage Qualified Code(s): N18.9 - Chronic kidney disease, unspecified (3) Pre-operative cardiovascular examination Code(s): Z01.810 - ENCOUNTER FOR PREPROCEDURAL CARDIOVASCULAR EXAMINATION (4) UTI (urinary tract infection) Code(s): N39.0 - URINARY TRACT INFECTION, SITE NOT SPECIFIED Qualifiers: Urinary tract infection type: acute cystitis Hematuria presence: with hematuria Qualified Code(s): N30.01 - Acute cystitis with hematuria (5) LORY (acute kidney injury) Code(s): N17.9 - ACUTE KIDNEY FAILURE, UNSPECIFIED (6) Afib Code(s): I48.91 - UNSPECIFIED ATRIAL FIBRILLATION Qualifiers: Atrial fibrillation type: paroxysmal Qualified Code(s): I48.0 - Paroxysmal atrial fibrillation (7) CAD (coronary artery disease) Code(s): I25.10 - ATHSCL HEART DISEASE OF [place] CORONARY ARTERY W/O ANG PCTRS Qualifiers: Coronary Disease-Associated Artery/Lesion type: [place] artery [place] vs. transplanted heart: [place] heart Associated angina: without angina Qualified Code(s): I25.10 - Atherosclerotic heart disease of [place] coronary artery without angina pectoris (8) CVA (cerebral vascular accident) Code(s): I63.9 - CEREBRAL INFARCTION, UNSPECIFIED Qualifiers: CVA mechanism: embolism Precerebral and cerebral artery: middle cerebral artery Laterality of affected vessel: right Qualified Code(s): I63.411 - Cerebral infarction due to embolism of right middle cerebral artery (9) Demand ischemia Code(s): I24.8 - OTHER FORMS OF ACUTE ISCHEMIC HEART DISEASE (10) 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 Code(s): E11.9 - TYPE 2 DIABETES MELLITUS WITHOUT COMPLICATIONS Qualifiers: 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 type: type 2 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 moth exterminator insulin use: without moth exterminator use 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 complication status: without complication Qualified Code(s): E11.9 - Type 2 diabetes mellitus without complications (11) HTN (hypertension) Code(s): I10 - ESSENTIAL (PRIMARY) HYPERTENSION Qualifiers: Hypertension type: essential hypertension Qualified Code(s): I10 - Essential (primary) hypertension (12) History of cardiac radiofrequency ablation (RFA) Code(s): Z98.89 - OTHER SPECIFIED POSTPROCEDURAL STATES * DO NOT USE * (13) Hypercholesteremia Code(s): E78.0 - PURE HYPERCHOLESTEROLEMIA * DO NOT USE * (14) NSTEMI (non-ST elevated myocardial infarction) Code(s): I21.4 - NON-ST ELEVATION (NSTEMI) MYOCARDIAL INFARCTION (15) Obstructed Coughlin catheter Code(s): T83.098A - [facility] COMPL OF OTHER URINARY CATHETER, INITIAL ENCOUNTER Qualifiers: Encounter type: initial encounter (16) Obstructive sleep apnea of adult Code(s): G47.33 - OBSTRUCTIVE SLEEP APNEA (ADULT) (PEDIATRIC) (17) S/P coronary artery stent placement Code(s): Z95.5 - PRESENCE OF CORONARY ANGIOPLASTY IMPLANT AND GRAFT (18) TIA (transient ischemic attack) Code(s): G45.9 - TRANSIENT CEREBRAL ISCHEMIC ATTACK, UNSPECIFIED Qualifiers: Transient cerebral ischemia type: unspecified Qualified Code(s): G45.9 - Transient cerebral ischemic attack, unspecified Assessment/Plan 1. Lower complicated UTI (h/o ESBL UTI and nephrolithiasis requiring ureteral stent/nephrostomy tube), Urine culture with yeast 2. Pre-Op CV evalutaion prior to TURP for BPH with recurrent coughlin blockage 3. LORY on CKD stage II (baseline Cr 1.3-.1.5) likely from retention/UTI +/- hypovolumia 4. 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 Paroxysmal atrial fibrillation [id number] score of 6 - ? noncompliance vs. breakthrough neurologic event (NOAC failure) 6. CAD post multi-vessel PCI stent angina pectoris, with evidence of demand ischemic injury, stable on medical therapy 7. Diastolic LV dysfunction with chronic class I NYHA classification LV failure , compensated/euvolemic 8. HTN 9. DM 10. Hyperlipidemia 11. History of KATJA 12. Anemia PLAN: 1. There is no absolute contraindication in proceeding with surgery in view of absence of ischemic symptoms, decompensated congestive heart failure or malignant arrhythmias. Await input 2. Continue Lopressor 25 bid as hemodynamics permit 3. Continue Amlodipine 2.5 qd 4. Continue Cozaar 50 qd with close mentoring of renal function, hemodynamics permitting 5. Continue Imdur 30 qd 6. Continue Ranexa 500 bid 7. Coumadin held and ASA 81 qd pre-op and resume once post-procedure hemostasis has been achieved. Currently on Heparin drip bridge 8. Continue Lopid 600 bid and Welchol 625 bid 9. GI prophylaxis Further plans are to follow Riley Brandt MD
[2018-04-25] MEDS: amLODIPine BESYLATE 2.5 MG TABLET (FP) PO SCH (09:12)
[2018-04-25] MEDS: RANITIDINE HCL 150 MG TABLET (FP) PO SCH (09:12)
[2018-04-25] MEDS: TAMSULOSIN HCL 0.4 MG CAP.ER.24H (FP) PO SCH (09:12)
[2018-04-25] MEDS: ISOSORBIDE MONONITRATE 30 MG TAB.SR.24H (FP) PO SCH (09:12)
[2018-04-25] MEDS: RANOLAZINE E.R. 500 MG TABLET (FP) PO SCH ×2 (09:12→21:42)
[2018-04-25] MEDS: METOPROLOL TARTRATE 25 MG TABLET (FP) PO SCH ×2 (09:12→21:43)
[2018-04-25] MEDS: HEPARIN SOD,PORK IN 0.45% NACL 25,000 UNITS/500 ML INFUS.BAG IVPB SCH (09:30)
--- NOTE | 2018-04-25 14:29 | PN ---
Progress Note (short form) - Note Progress Note: Patient seen and examined, eager to go home, no complaints. Objective: Vital Signs Period Temp Pulse Resp BP Sys/Crawford Pulse Ox Last 24 Hr 97.7 F-97.9 F 60-68 18-20 134-150/63-67 95-98 Intake & Output 04/22/18 04/23/18 04/24/18 04/25/18 23:59 23:59 23:59 23:59 Intake Total 750 850 550 Output Total 3200 1950 2500 650 Balance -3200 -1200 -1650 -100 General: lying in bed in no acute distress Chest: CTAB, no rales or wheezing Abdomen:Soft, NT, ND, no suprapubic or CVA tenderness Extremities: no edema Home Medications Medication Instructions Recorded Aspirin [ASA -] 81 mg PO DAILY #30 tab.chew 04/19/18 Gemfibrozil [Lopid -] 600 mg PO BID@0700,1630 #60 tablet 04/19/18 Insulin (Levemir) [Levemir Vial] 20 units SQ BIDI #1 vial 04/19/18 Isosorbide Mononitrate [Imdur -] 30 mg PO DAILY #30 tab.sr.24h 04/19/18 Metoprolol Tartrate [Lopressor -] 25 mg PO BID #60 tablet 04/19/18 Ranitidine [Zantac -] 150 mg PO DAILY #30 tablet 04/19/18 Ranolazine [Ranexa -] 500 mg PO BID #60 tab 04/19/18 Tamsulosin HCl [Flomax -] 0.4 mg PO DAILY@0830 #30 cap.er.24h 04/19/18 Warfarin Na [Coumadin -] 6 mg PO DAILY@1800 #15 tablet 04/19/18 Active Medications Acetaminophen (Tylenol -) 650 mg PO Q4H PRN PRN Reason: PAIN LEVEL 1-5 Al Hydroxide/Mg Hydroxide (Mylanta Oral Suspension -) 30 ml PO Q6H PRN PRN Reason: DYSPEPSIA Amlodipine Besylate (Norvasc -) 2.5 mg PO DAILY [facility] Last Admin: 04/25/18 09:12 Dose: 2.5 mg Benzocaine/Menthol (Cepacol Lozenge -) 1 each MM PRN PRN PRN Reason: SORE THROAT Gemfibrozil (Lopid -) 600 mg PO BID@0700,1630 [facility] Last Admin: 04/25/18 06:29 Dose: 600 mg Heparin Sodium (Porcine) (Heparin -) 1,000 unit IVPUSH PRN PRN PRN Reason: Heparin Heparin Sodium (Porcine) (Heparin -) 5,000 unit IVPUSH PRN PRN PRN Reason: Heparin HEPARIN SOD,PORK IN 0.45% NACL (Heparin-1/2ns 25,000 Units/500) 25,000 units in 500 mls @ 20 mls/hr IVPB TITR [facility]; Protocol Last Admin: 04/25/18 09:30 Dose: 1,000 units/hr, 20 mls/hr Insulin Aspart (Novolog Vial Sliding Scale -) 1 vial SQ ACHS [facility]; Protocol Last Admin: 04/25/18 11:53 Dose: 6 unit Insulin Detemir (Levemir Vial) 20 units SQ BIDI [facility] Last Admin: 04/25/18 06:29 Dose: 20 units Isosorbide Mononitrate (Imdur -) 30 mg PO DAILY [facility] Last Admin: 04/25/18 09:12 Dose: 30 mg Metoprolol Tartrate (Lopressor -) 25 mg PO BID [facility] Last Admin: 04/25/18 09:12 Dose: 25 mg Ranitidine HCl (Zantac -) 150 mg PO DAILY [facility] Last Admin: 04/25/18 09:12 Dose: 150 mg Ranolazine (Ranexa -) 500 mg PO BID [facility] Last Admin: 04/25/18 09:12 Dose: 500 mg Tamsulosin HCl (Flomax -) 0.4 mg PO DAILY@0830 [facility] Last Admin: 04/25/18 09:12 Dose: 0.4 mg Warfarin Sodium (Coumadin -) 5 mg PO DAILY@1800 [facility] Laboratory Results - last 24 hr 04/24/18 04/24/18 04/24/18 15:50 16:20 20:21 WBC RBC Hgb Hct MCV MCH MCHC RDW Plt Count MPV Absolute Neuts (auto) Neutrophils % Lymphocytes % Monocytes % Eosinophils % Basophils % Nucleated RBC % PT with INR INR PTT (Actin FS) 54.2 H D Sodium Potassium Chloride Carbon Dioxide Anion Gap BUN Creatinine Creat Clearance w eGFR POC Glucometer 179 264 Random Glucose Calcium 04/25/18 04/25/18 04/25/18 05:36 06:00 06:00 WBC 6.8 RBC 4.05 Hgb 12.5 Hct 37.3 MCV 92.2 MCH 31.0 MCHC 33.6 RDW 14.1 Plt Count 385 MPV 9.2 Absolute Neuts (auto) 2.4 Neutrophils % 35.8 L Lymphocytes % 51.1 H Monocytes % 8.1 Eosinophils % 3.9 Basophils % 1.1 Nucleated RBC % 0 PT with INR 18.90 H INR 1.67 H PTT (Actin FS) Sodium Potassium Chloride Carbon Dioxide Anion Gap BUN Creatinine Creat Clearance w eGFR POC Glucometer 147 Random Glucose Calcium 04/25/18 04/25/18 04/25/18 06:00 06:00 11:01 WBC RBC Hgb Hct MCV MCH MCHC RDW Plt Count MPV Absolute Neuts (auto) Neutrophils % Lymphocytes % Monocytes % Eosinophils % Basophils % Nucleated RBC % PT with INR INR PTT (Actin FS) 65.4 H Sodium 138 Potassium 4.0 Chloride 107 Carbon Dioxide 23 Anion Gap 8 BUN 36 H Creatinine 1.6 H Creat Clearance w eGFR 42.58 POC Glucometer 285 Random Glucose 141 H Calcium 8.9 Assessment/Plan: 72 yo M with PMHx of HTN, hyperlipidemia, diabetes, atrial flutter, AFIB (on coumadin), CAD (s/p stent), past TIAs, BPH, CKD, diverticulosis, and chronic hip pain (3X broken hip) admitted with lower complicated UTI, hyperglycemia, and inability to care for at home. -Lower complicated UTI (h/o ESBL UTI and nephrolithiasis requiring ureteral stent/nephrostomy tube 01/2017), UCx with yeast -BPH with recurrent coughlin blockage -LORY on CKD stage II (baseline Cr 1.3-.1.5) likely from retention/UTI +/- hypovolumia, resolved -COumadin coagulopathy, likely from non compliance -Hyperglycemia/IDDM -Urinary retention due to UTI/BPH -Calf pain, resolved, neg duplex -Hpypomagnesemia -CAD -h/o diastolic HF Plan: No cocnerns with coughlin. Cr around baseline. repeat renal/Bladder US as follow up. ASA need to be held for 1 week. Recommend outpatient follow up if no further concerns with coughlin inhouse. COumadin 5 mg daily resumed. Start heparin drip while inhouse, monitor INR. s/p 7 days of fluconazole. repeat urine cultures neg. ID input noted. CT A/P noted, no evidence of kidney stones. Levemir BID, ISS, diabetic diet. Replete Mg prn. Psych input noted. Discuss d/c home with services on Thursday if no new events and dispo arranged. Plan discussed with patient and all questions answered Visit type - Emergency Visit Emergency Visit: No - New Patient This patient is new to me today: No - Critical Care Critical Care patient: No - Discharge Referral Referred to [facility] Med P.C.: No
[2018-04-25] MEDS ORDERED: WARFARIN NA 5 MG TABLET (UD) PO SCH (18:00)
[2018-04-26 06:22] LABS: INR 1.58 (0.82-1.09); PROTHROMBIN TIME (PATIENT) 17.8 SEC (9.7-13.0)
[2018-04-26] MEDS: INSULIN SLIDING SCALE (NOVOLOG) 1 VIAL SQ SCH ×4 (06:34→22:19)
[2018-04-26] MEDS: INSULIN (LEVEMIR) 100 UNITS/ML UNITS SQ SCH ×2 (06:34→17:14)
[2018-04-26] MEDS: GEMFIBROZIL 600 MG TABLET (FP) PO SCH ×2 (06:34→17:15)
[2018-04-26 06:43] LABS: CHLORIDE 106 mmol/L (98-107); SODIUM 139 mmol/L (136-145)
[2018-04-26 07:15] LABS: ANION GAP 9 (8-16); BLOOD UREA NITROGEN 31 mg/dL (7-18); CALCIUM 9.1 mg/dL (8.5-10.1); CO2 24 mmol/L (21-32); CREATININE 1.5 mg/dL (0.7-1.3); GLUCOSE,RANDOM 134 mg/dL (74-106)
[2018-04-26] MEDS: amLODIPine BESYLATE 2.5 MG TABLET (FP) PO SCH (09:15)
[2018-04-26] MEDS: METOPROLOL TARTRATE 25 MG TABLET (FP) PO SCH ×2 (09:15→22:19)
[2018-04-26] MEDS: ISOSORBIDE MONONITRATE 30 MG TAB.SR.24H (FP) PO SCH (09:15)
[2018-04-26] MEDS: RANOLAZINE E.R. 500 MG TABLET (FP) PO SCH ×2 (09:15→22:18)
[2018-04-26] MEDS: RANITIDINE HCL 150 MG TABLET (FP) PO SCH (09:15)
[2018-04-26] MEDS: TAMSULOSIN HCL 0.4 MG CAP.ER.24H (FP) PO SCH (09:15)
[2018-04-26] MEDS: HEPARIN SOD,PORK IN 0.45% NACL 25,000 UNITS/500 ML INFUS.BAG IVPB SCH (09:21)
--- NOTE | 2018-04-26 10:01 | PN ---
Progress Note, Physician Chief Complaint: Events noted Await further plans regarding TURP whether it will be done as inpatient or as outpatient or to be done at all. Currently remains on Heparin drip and Coumadin has been restarted History of Present Illness: Patient was seen and examined. Awake and alert. Chart was reviewed Denies chest pain, SOB or palpitations Not in distress - Current Medication List Current Medications: Active Medications Acetaminophen (Tylenol -) 650 mg PO Q4H PRN PRN Reason: PAIN LEVEL 1-5 Al Hydroxide/Mg Hydroxide (Mylanta Oral Suspension -) 30 ml PO Q6H PRN PRN Reason: DYSPEPSIA Amlodipine Besylate (Norvasc -) 2.5 mg PO DAILY [facility] Last Admin: 04/26/18 09:15 Dose: 2.5 mg Benzocaine/Menthol (Cepacol Lozenge -) 1 each MM PRN PRN PRN Reason: SORE THROAT Gemfibrozil (Lopid -) 600 mg PO BID@0700,1630 [facility] Last Admin: 04/26/18 06:34 Dose: 600 mg Heparin Sodium (Porcine) (Heparin -) 1,000 unit IVPUSH PRN PRN PRN Reason: Heparin Heparin Sodium (Porcine) (Heparin -) 5,000 unit IVPUSH PRN PRN PRN Reason: Heparin HEPARIN SOD,PORK IN 0.45% NACL (Heparin-1/2ns 25,000 Units/500) 25,000 units in 500 mls @ 20 mls/hr IVPB TITR [facility]; Protocol Last Titration: 04/26/18 09:21 Dose: 1,000 units/hr, 20 mls/hr Insulin Aspart (Novolog Vial Sliding Scale -) 1 vial SQ ACHS [facility]; Protocol Last Admin: 04/26/18 06:34 Dose: Not Given Insulin Detemir (Levemir Vial) 20 units SQ BIDI [facility] Last Admin: 04/26/18 06:34 Dose: 20 units Isosorbide Mononitrate (Imdur -) 30 mg PO DAILY [facility] Last Admin: 04/26/18 09:15 Dose: 30 mg Metoprolol Tartrate (Lopressor -) 25 mg PO BID [facility] Last Admin: 04/26/18 09:15 Dose: 25 mg Ranitidine HCl (Zantac -) 150 mg PO DAILY [facility] Last Admin: 04/26/18 09:15 Dose: 150 mg Ranolazine (Ranexa -) 500 mg PO BID [facility] Last Admin: 04/26/18 09:15 Dose: 500 mg Tamsulosin HCl (Flomax -) 0.4 mg PO DAILY@0830 [facility] Last Admin: 04/26/18 09:15 Dose: 0.4 mg Warfarin Sodium (Coumadin -) 5 mg PO DAILY@1800 [facility] Last Admin: 04/25/18 17:01 Dose: 5 mg - Objective Vital Signs: Vital Signs Temperature 97.3 F L 04/26/18 06:00 Pulse Rate 56 L 04/26/18 06:00 Respiratory Rate 18 04/26/18 09:00 Blood Pressure 108/80 04/26/18 06:00 O2 Sat by Pulse Oximetry (%) 95 04/26/18 09:00 Cardiovascular: Yes: Pulse Irregular, Murmur (Soft SM), S1, S2 Respiratory: Yes: CTA Bilaterally Gastrointestinal: Yes: Normal Bowel Sounds, Soft. No: Tenderness Edema: No Additional Findings/Remarks: - Review of Systems Constitutional: denies: Chills, Fever Cardiovascular: denies: Chest Pain, Shortness of Breath. denies: Palpitations Respiratory: denies: SOB, SOB on Exertion. denies: Cough, Hemoptysis, Orthopnea , PND Gastrointestinal: denies: Abdominal Pain, Constipation, Diarrhea, Melena, Nausea , Rectal Bleeding, Vomiting Musculoskeletal: denies: Joint Pain. denies: Back Pain Neurological: denies: Unsteady Gait, Weakness. denies: Dizziness, Headache, Seizure, Syncope Labs: CBC, BMP 04/25/18 06:00 04/26/18 05:45 INR, PTT INR 1.58 (0.82-1.09) H 04/26/18 05:45 Problem List - Problems (1) Acute urinary retention Code(s): R33.8 - OTHER RETENTION OF URINE (2) CKD (chronic kidney disease) Code(s): N18.9 - CHRONIC KIDNEY DISEASE, UNSPECIFIED Qualifiers: Chronic kidney disease stage: unspecified stage Qualified Code(s): N18.9 - Chronic kidney disease, unspecified (3) Pre-operative cardiovascular examination Code(s): Z01.810 - ENCOUNTER FOR PREPROCEDURAL CARDIOVASCULAR EXAMINATION (4) UTI (urinary tract infection) Code(s): N39.0 - URINARY TRACT INFECTION, SITE NOT SPECIFIED Qualifiers: Urinary tract infection type: acute cystitis Hematuria presence: with hematuria Qualified Code(s): N30.01 - Acute cystitis with hematuria (5) LORY (acute kidney injury) Code(s): N17.9 - ACUTE KIDNEY FAILURE, UNSPECIFIED (6) Afib Code(s): I48.91 - UNSPECIFIED ATRIAL FIBRILLATION Qualifiers: Atrial fibrillation type: paroxysmal Qualified Code(s): I48.0 - Paroxysmal atrial fibrillation (7) CAD (coronary artery disease) Code(s): I25.10 - ATHSCL HEART DISEASE OF [place] CORONARY ARTERY W/O ANG PCTRS Qualifiers: Coronary Disease-Associated Artery/Lesion type: [place] artery [place] vs. transplanted heart: [place] heart Associated angina: without angina Qualified Code(s): I25.10 - Atherosclerotic heart disease of [place] coronary artery without angina pectoris (8) CVA (cerebral vascular accident) Code(s): I63.9 - CEREBRAL INFARCTION, UNSPECIFIED Qualifiers: CVA mechanism: embolism Precerebral and cerebral artery: middle cerebral artery Laterality of affected vessel: right Qualified Code(s): I63.411 - Cerebral infarction due to embolism of right middle cerebral artery (9) Demand ischemia Code(s): I24.8 - OTHER FORMS OF ACUTE ISCHEMIC HEART DISEASE (10) 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 Code(s): E11.9 - TYPE 2 DIABETES MELLITUS WITHOUT COMPLICATIONS Qualifiers: 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 type: type 2 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 terminal supervisor insulin use: without shelter use 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 complication status: without complication Qualified Code(s): E11.9 - Type 2 diabetes mellitus without complications (11) HTN (hypertension) Code(s): I10 - ESSENTIAL (PRIMARY) HYPERTENSION Qualifiers: Hypertension type: essential hypertension Qualified Code(s): I10 - Essential (primary) hypertension (12) History of cardiac radiofrequency ablation (RFA) Code(s): Z98.89 - OTHER SPECIFIED POSTPROCEDURAL STATES * DO NOT USE * (13) Hypercholesteremia Code(s): E78.0 - PURE HYPERCHOLESTEROLEMIA * DO NOT USE * (14) NSTEMI (non-ST elevated myocardial infarction) Code(s): I21.4 - NON-ST ELEVATION (NSTEMI) MYOCARDIAL INFARCTION (15) Obstructed Coughlin catheter Code(s): T83.098A - [facility] COMPL OF OTHER URINARY CATHETER, INITIAL ENCOUNTER Qualifiers: Encounter type: initial encounter (16) Obstructive sleep apnea of adult Code(s): G47.33 - OBSTRUCTIVE SLEEP APNEA (ADULT) (PEDIATRIC) (17) S/P coronary artery stent placement Code(s): Z95.5 - PRESENCE OF CORONARY ANGIOPLASTY IMPLANT AND GRAFT (18) TIA (transient ischemic attack) Code(s): G45.9 - TRANSIENT CEREBRAL ISCHEMIC ATTACK, UNSPECIFIED Qualifiers: Transient cerebral ischemia type: unspecified Qualified Code(s): G45.9 - Transient cerebral ischemic attack, unspecified Assessment/Plan 1. Lower complicated UTI (h/o ESBL UTI and nephrolithiasis requiring ureteral stent/nephrostomy tube), Urine culture with yeast 2. Pre-Op CV evalutaion prior to TURP for BPH with recurrent coughlin blockage 3. LORY on CKD stage II (baseline Cr 1.3-.1.5) likely from retention/UTI +/- hypovolumia 4. 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 Paroxysmal atrial fibrillation [id number] score of 6 - ? noncompliance vs. breakthrough neurologic event (NOAC failure) 6. CAD post multi-vessel PCI stent angina pectoris, with evidence of demand ischemic injury, stable on medical therapy 7. Diastolic LV dysfunction with chronic class I NYHA classification LV failure , compensated/euvolemic 8. HTN 9. DM 10. Hyperlipidemia 11. History of KATJA 12. Anemia PLAN: 1. There is no absolute contraindication in proceeding with surgery in view of absence of ischemic symptoms, decompensated congestive heart failure or malignant arrhythmias. Await final input in terms of overall plan 2. Continue Lopressor 25 bid as hemodynamics permit 3. Continue Amlodipine 2.5 qd 4. Continue Cozaar 50 qd with close mentoring of renal function, hemodynamics permitting 5. Continue Imdur 30 qd 6. Continue Ranexa 500 bid 7. Coumadin restarted, but ASA stopped. Currently on Heparin drip bridge 8. Lopid 600 bid and Welchol 625 bid 9. GI prophylaxis Further plans are to follow Riley Brandt MD
[2018-04-26] MEDS ORDERED: INSULIN (NOVOLOG) ASPART 100 UNITS/ML 10ML VIAL ONE ×2 (11:48→17:12)
--- NOTE | 2018-04-26 13:05 | PN ---
Teaching Attending Note Name of Resident: Yung Damon ATTENDING PHYSICIAN STATEMENT I saw and evaluated the patient. I reviewed the resident's note and discussed the case with the resident. I agree with the resident's findings and plan as documented with exceptions below. SUBJECTIVE: Patient seen and examined. no complaints, eager to know d/c plan. OBJECTIVE: Vital Signs Period Temp Pulse Resp BP Sys/Crawford Pulse Ox Last 24 Hr 97 F-98.1 F 56-68 18-20 106-152/63-80 95-95 Intake & Output 04/23/18 04/24/18 04/25/18 04/26/18 23:59 23:59 23:59 23:59 Intake Total 750 850 800 Output Total 1950 2500 2600 900 Balance -1200 -1650 -1800 -900 General: lying in bed in no acute distress Chest: CTAB, no rales or wheezing Abdomen:Soft, NT, ND, no CVA tenderness Extremities: no edema Active Medications Acetaminophen (Tylenol -) 650 mg PO Q4H PRN PRN Reason: PAIN LEVEL 1-5 Al Hydroxide/Mg Hydroxide (Mylanta Oral Suspension -) 30 ml PO Q6H PRN PRN Reason: DYSPEPSIA Amlodipine Besylate (Norvasc -) 2.5 mg PO DAILY [facility] Last Admin: 04/26/18 09:15 Dose: 2.5 mg Benzocaine/Menthol (Cepacol Lozenge -) 1 each MM PRN PRN PRN Reason: SORE THROAT Gemfibrozil (Lopid -) 600 mg PO BID@0700,1630 [facility] Last Admin: 04/26/18 06:34 Dose: 600 mg Heparin Sodium (Porcine) (Heparin -) 1,000 unit IVPUSH PRN PRN PRN Reason: Heparin Heparin Sodium (Porcine) (Heparin -) 5,000 unit IVPUSH PRN PRN PRN Reason: Heparin HEPARIN SOD,PORK IN 0.45% NACL (Heparin-1/2ns 25,000 Units/500) 25,000 units in 500 mls @ 20 mls/hr IVPB TITR [facility]; Protocol Last Admin: 04/26/18 09:21 Dose: 1,000 units/hr, 20 mls/hr Insulin Aspart (Novolog Vial Sliding Scale -) 1 vial SQ ACHS [facility]; Protocol Last Admin: 04/26/18 11:57 Dose: 4 unit Insulin Detemir (Levemir Vial) 20 units SQ BIDI [facility] Last Admin: 04/26/18 06:34 Dose: 20 units Isosorbide Mononitrate (Imdur -) 30 mg PO DAILY [facility] Last Admin: 04/26/18 09:15 Dose: 30 mg Metoprolol Tartrate (Lopressor -) 25 mg PO BID [facility] Last Admin: 04/26/18 09:15 Dose: 25 mg Ranitidine HCl (Zantac -) 150 mg PO DAILY [facility] Last Admin: 04/26/18 09:15 Dose: 150 mg Ranolazine (Ranexa -) 500 mg PO BID [facility] Last Admin: 04/26/18 09:15 Dose: 500 mg Tamsulosin HCl (Flomax -) 0.4 mg PO DAILY@0830 [facility] Last Admin: 04/26/18 09:15 Dose: 0.4 mg Warfarin Sodium (Coumadin -) 5 mg PO DAILY@1800 [facility] Last Admin: 04/25/18 17:01 Dose: 5 mg Laboratory Results - last 24 hr 04/25/18 04/25/18 04/26/18 15:52 21:40 05:45 PT with INR INR PTT (Actin FS) 62.6 H Sodium Potassium Chloride Carbon Dioxide Anion Gap BUN Creatinine Creat Clearance w eGFR POC Glucometer 199 221 Random Glucose Calcium 04/26/18 04/26/18 04/26/18 05:45 05:45 06:32 PT with INR 17.80 H INR 1.58 H PTT (Actin FS) Sodium 139 Potassium 4.0 Chloride 106 Carbon Dioxide 24 Anion Gap 9 BUN 31 H Creatinine 1.5 H Creat Clearance w eGFR 45.87 POC Glucometer 126 Random Glucose 134 H Calcium 9.1 04/26/18 11:32 PT with INR INR PTT (Actin FS) Sodium Potassium Chloride Carbon Dioxide Anion Gap BUN Creatinine Creat Clearance w eGFR POC Glucometer 230 Random Glucose Calcium Renal/Bladder US noted ASSESSMENT AND PLAN: 72 yo M with PMHx of HTN, hyperlipidemia, diabetes, atrial flutter, AFIB (on coumadin), CAD (s/p stent), past TIAs, BPH, CKD, diverticulosis, and chronic hip pain (3X broken hip) admitted with lower complicated UTI, hyperglycemia, and inability to care for at home. -Lower complicated UTI (h/o ESBL UTI and nephrolithiasis requiring ureteral stent/nephrostomy tube 01/2017), UCx with yeast -BPH with recurrent coughlin blockage -LORY on CKD stage II (baseline Cr 1.3-.1.5) likely from retention/UTI +/- hypovolumia, resolved -COumadin coagulopathy, likely from non compliance -Hyperglycemia/IDDM -Urinary retention due to UTI/BPH -Calf pain, resolved, neg duplex -Hpypomagnesemia -CAD -h/o diastolic HF Plan: renal US noted, coughlin in prostatic urethra. Discuss with urology. Patient with no symptoms. Cr stable, around baseline. INR noted, Coumadin 6 mg today if no intervention planned, INR monitoring. ASA on hold, needs off 7 days for urology to do TURP as discussed, Inptient vs outpatient per urology recs. Cardiology input noted, ok to hold ASA/coumadin janelle-operatively as per recs. s/p 7 days of fluconazole. repeat urine cultures neg. ID input noted. CT A/P noted, no evidence of kidney stones. Levemir BID, ISS, diabetic diet. Replete Mg prn. Psych input noted. Discuss d/c home with services pending urology input. Plan discussed with patient and all questions answered
--- NOTE | 2018-04-26 14:45 | PN ---
Physical Exam: SUBJECTIVE: Patient seen and examined at bedside. Pt recently had US of bladder/ kidney, which showed the coughlin in the prostatic urethra. Pt continues to have the same vague complaint of abdominal "tenderness". He states it is not pain, per se. No other complaints. OBJECTIVE: Vital Signs Period Temp Pulse Resp BP Sys/Crawford Pulse Ox Last 24 Hr 97 F-98.1 F 56-68 18-20 106-152/63-80 95-95 Gen: comfortable in chair in NAD HEENT: NCAT, EOMI Neck: supple, no jvd Cardio: s1s2 no murmurs/rubs/gallops appreciated Pulm: cta Abd: vague mild tenderness still present, normal bs, soft, cath draining Ext: 2+ pulses, no edema Laboratory Results - last 24 hr 04/25/18 04/25/18 04/26/18 15:52 21:40 05:45 PT with INR INR PTT (Actin FS) 62.6 H Sodium Potassium Chloride Carbon Dioxide Anion Gap BUN Creatinine Creat Clearance w eGFR POC Glucometer 199 221 Random Glucose Calcium 04/26/18 04/26/18 04/26/18 05:45 05:45 06:32 PT with INR 17.80 H INR 1.58 H PTT (Actin FS) Sodium 139 Potassium 4.0 Chloride 106 Carbon Dioxide 24 Anion Gap 9 BUN 31 H Creatinine 1.5 H Creat Clearance w eGFR 45.87 POC Glucometer 126 Random Glucose 134 H Calcium 9.1 04/26/18 11:32 PT with INR INR PTT (Actin FS) Sodium Potassium Chloride Carbon Dioxide Anion Gap BUN Creatinine Creat Clearance w eGFR POC Glucometer 230 Random Glucose Calcium Active Medications Generic Name Dose Route Start Last Admin Trade Name Freq PRN Reason Stop Dose Admin Acetaminophen 650 mg 04/24/18 19:16 Tylenol - PO Q4H PRN PAIN LEVEL 1-5 Al Hydroxide/Mg Hydroxide 30 ml 04/24/18 19:16 Mylanta Oral Suspension - PO Q6H PRN DYSPEPSIA Amlodipine Besylate 2.5 mg 04/25/18 10:00 04/26/18 09:15 Norvasc - PO 2.5 mg DAILY [facility] Administration Benzocaine/Menthol 1 each 04/24/18 19:16 Cepacol Lozenge - MM PRN PRN SORE THROAT Gemfibrozil 600 mg 04/25/18 07:00 04/26/18 06:34 Lopid - PO 600 mg BID@0700,1630 [facility] Administration Heparin Sodium (Porcine) 1,000 unit 04/24/18 09:16 Heparin - IVPUSH PRN PRN Heparin Heparin Sodium (Porcine) 5,000 unit 04/24/18 09:16 Heparin - IVPUSH PRN PRN Heparin HEPARIN SOD,PORK IN 0.45% NACL 25,000 units in 500 mls @ 20 mls/hr 04/24/18 09 :30 04/26/18 09:21 Heparin-1/2ns 25,000 Units/500 IVPB 1,000 units/hr TITR [facility] 20 mls/hr Administration Protocol 1,000 UNITS/HR Insulin Aspart 1 vial 04/24/18 22:00 04/26/18 11:57 Novolog Vial Sliding Scale - SQ 4 unit ACHS [facility] Administration Protocol Insulin Detemir 20 units 04/25/18 07:00 04/26/18 06:34 Levemir Vial SQ 20 units BIDI [facility] Administration Isosorbide Mononitrate 30 mg 04/25/18 10:00 04/26/18 09:15 Imdur - PO 30 mg DAILY [facility] Administration Metoprolol Tartrate 25 mg 04/24/18 22:00 04/26/18 09:15 Lopressor - PO 25 mg BID [facility] Administration Ranitidine HCl 150 mg 04/25/18 10:00 04/26/18 09:15 Zantac - PO 150 mg DAILY [facility] Administration Ranolazine 500 mg 04/24/18 22:00 04/26/18 09:15 Ranexa - PO 500 mg BID [facility] Administration Tamsulosin HCl 0.4 mg 04/25/18 08:30 04/26/18 09:15 Flomax - PO 0.4 mg DAILY@0830 [facility] Administration Warfarin Sodium 5 mg 04/25/18 18:00 04/25/18 17:01 Coumadin - PO 5 mg DAILY@1800 [facility] Administration ASSESSMENT/PLAN: Pt is a 72 y/o M with PMH AF and BPH who presents to ED with urinary retention, dysuria. Pt found to have UTI and LORY. #Retention -likely 2/2 BPH and/or med noncompliance -initially straight cath yielded approx 300 cc -Flomax -monitor -Urology consulted in ED -Coughlin repeatedly stopped draining and required replacement/repositioning. Currently draining well -Urology is considering TURP. Will see the pt in clinic as pt has been getting ASA and must be off ASA for at least 1 week. -Pt seen by Cardio. Rec holding ASA and resuming once hemostasis achieved post- procedure #UTI -LE 3, WBC 1848, isabella 190 on admission -likely 2/2 retention -no leukocytosis -rocephin in ED -UCx pos for fungal - fluconazole (now d/c'ed by ID) #DM -BGM ACHS -Levemir -ISS #pAfib -Hep ggt coumadin bridge- completed -daily INR -monitor for therapeutic range -Will hold ASA (since 04/22) for TURP -on Hep ggt #LORY: RESOLVED -likely 2/2 retention -initial [employer] 1.8 from baseline 1.3-1.5 (earlier this year) #FEN -NS -lytes wnl -DM diet #PPx -coumadin -Hep ggt #Dispo -Med/Surg -will likely need vns or snf or nh on d/c because he appears to be unable to manage his home meds on his own -Plan for D/C on Thu. Yung Damon MD PGY-1 IM Visit type - Emergency Visit Emergency Visit: No - New Patient This patient is new to me today: No - Critical Care Critical Care patient: No - Discharge Referral Referred to [facility] Med P.C.: No
--- NOTE | 2018-04-26 20:12 | PN ---
Progress Note (short form) - Note Progress Note: this note is from 04/22/2018 coughlin draining clear urine for TURP as outpt since was on ASA Problem List - Problems (1) UTI (urinary tract infection) Code(s): N39.0 - URINARY TRACT INFECTION, SITE NOT SPECIFIED Qualifiers: Urinary tract infection type: acute cystitis Hematuria presence: with hematuria Qualified Code(s): N30.01 - Acute cystitis with hematuria
[2018-04-27] MEDS: INSULIN SLIDING SCALE (NOVOLOG) 1 VIAL SQ SCH ×4 (06:16→22:12)
[2018-04-27 06:22] LABS: BASO % 1.1 % (0-2.0); EOS % 4.4 % (0-4.5); HEMOGLOBIN 11.9 GM/dL (11.7-16.9); LYMPH % 52.9 % (8-40); MCH 31.6 pg (25.7-33.7); MEAN CELL VOLUME 93.2 fl (80-96); MEAN PLT VOLUME 8.7 fl (7.5-11.1); MONO % 9.2 % (3.8-10.2); NEUT % 32.4 % (42.8-82.8); PLATELET COUNT 359 K/MM3 (134-434); RBC 3.75 M/mm3 (4.00-5.60); RDW 14.2 % (11.9-15.9); WHITE BLOOD COUNT 6.3 K/mm3 (4.0-10.0)
[2018-04-27 06:39] LABS: INR 1.51 (0.82-1.09); PROTHROMBIN TIME (PATIENT) 17.1 SEC (9.7-13.0)
--- NOTE | 2018-04-27 06:43 | PN ---
Physical Exam: SUBJECTIVE: Patient seen and examined at bedside. No acute events. [place] draining well. Pt complains of belly discomfort, though he states it is less than yesterday. OBJECTIVE: Vital Signs Period Temp Pulse Resp BP Sys/Crawford Pulse Ox Last 24 Hr 97.3 F-97.6 F 56-68 18-20 106-136/59-83 95-95 Gen: comfortable in chair in NAD HEENT: NCAT, EOMI Neck: supple, no jvd Cardio: distant heart sounds s1s2 no murmurs/rubs/gallops appreciated Pulm: cta Abd: vague mild diffuse tenderness, normal bs, soft, cath draining Ext: 2+ pulses, no edema Laboratory Results - last 24 hr 04/26/18 04/26/18 04/26/18 05:45 05:45 06:32 WBC RBC Hgb Hct MCV MCH MCHC RDW Plt Count MPV Absolute Neuts (auto) Neutrophils % Lymphocytes % Monocytes % Eosinophils % Basophils % Nucleated RBC % PTT (Actin FS) 62.6 H Sodium 139 Potassium 4.0 Chloride 106 Carbon Dioxide 24 Anion Gap 9 BUN 31 H Creatinine 1.5 H Creat Clearance w eGFR 45.87 POC Glucometer 126 Random Glucose 134 H Calcium 9.1 04/26/18 04/26/18 04/26/18 11:32 16:38 22:16 WBC RBC Hgb Hct MCV MCH MCHC RDW Plt Count MPV Absolute Neuts (auto) Neutrophils % Lymphocytes % Monocytes % Eosinophils % Basophils % Nucleated RBC % PTT (Actin FS) Sodium Potassium Chloride Carbon Dioxide Anion Gap BUN Creatinine Creat Clearance w eGFR POC Glucometer 230 165 193 Random Glucose Calcium 04/27/18 04/27/18 06:00 06:08 WBC 6.3 RBC 3.75 L Hgb 11.9 Hct 35.0 L MCV 93.2 MCH 31.6 MCHC 34.0 RDW 14.2 Plt Count 359 MPV 8.7 Absolute Neuts (auto) 2.0 Neutrophils % 32.4 L Lymphocytes % 52.9 H Monocytes % 9.2 Eosinophils % 4.4 Basophils % 1.1 Nucleated RBC % 0 PTT (Actin FS) Sodium Potassium Chloride Carbon Dioxide Anion Gap BUN Creatinine Creat Clearance w eGFR POC Glucometer 115 Random Glucose Calcium Active Medications Generic Name Dose Route Start Last Admin Trade Name Freq PRN Reason Stop Dose Admin Acetaminophen 650 mg 04/24/18 19:16 Tylenol - PO Q4H PRN PAIN LEVEL 1-5 Al Hydroxide/Mg Hydroxide 30 ml 04/24/18 19:16 Mylanta Oral Suspension - PO Q6H PRN DYSPEPSIA Amlodipine Besylate 2.5 mg 04/25/18 10:00 04/26/18 09:15 Norvasc - PO 2.5 mg DAILY [facility] Administration Benzocaine/Menthol 1 each 04/24/18 19:16 Cepacol Lozenge - MM PRN PRN SORE THROAT Gemfibrozil 600 mg 04/25/18 07:00 04/26/18 17:15 Lopid - PO 600 mg BID@0700,1630 [facility] Administration Heparin Sodium (Porcine) 1,000 unit 04/24/18 09:16 Heparin - IVPUSH PRN PRN Heparin Heparin Sodium (Porcine) 5,000 unit 04/24/18 09:16 Heparin - IVPUSH PRN PRN Heparin HEPARIN SOD,PORK IN 0.45% NACL 25,000 units in 500 mls @ 20 mls/hr 04/24/18 09 :30 04/26/18 09:21 Heparin-1/2ns 25,000 Units/500 IVPB 1,000 units/hr TITR [facility] 20 mls/hr Administration Protocol 1,000 UNITS/HR Insulin Aspart 1 vial 04/24/18 22:00 04/27/18 06:16 Novolog Vial Sliding Scale - SQ Not Given ACHS [facility] Protocol Insulin Detemir 20 units 04/25/18 07:00 04/26/18 17:14 Levemir Vial SQ 20 units BIDI [facility] Administration Isosorbide Mononitrate 30 mg 04/25/18 10:00 04/26/18 09:15 Imdur - PO 30 mg DAILY [facility] Administration Metoprolol Tartrate 25 mg 04/24/18 22:00 04/26/18 22:19 Lopressor - PO 25 mg BID [facility] Administration Ranitidine HCl 150 mg 04/25/18 10:00 04/26/18 09:15 Zantac - PO 150 mg DAILY [facility] Administration Ranolazine 500 mg 04/24/18 22:00 04/26/18 22:18 Ranexa - PO 500 mg BID [facility] Administration Tamsulosin HCl 0.4 mg 04/25/18 08:30 04/26/18 09:15 Flomax - PO 0.4 mg DAILY@0830 [facility] Administration ASSESSMENT/PLAN: Pt is a 72 y/o M with PMH AF and BPH who presents to ED with urinary retention, dysuria. Pt found to have UTI and LORY. #Retention -likely 2/2 BPH and/or med noncompliance -initially straight cath yielded approx 300 cc -Flomax -monitor -Urology consulted in ED -[place] repeatedly stopped draining and required replacement/repositioning. Currently draining well -Urology is considering TURP. Will see the pt in clinic as pt has been getting ASA and must be off ASA for at least 1 week. -Pt seen by Cardio. Rec holding ASA and resuming once hemostasis achieved post- procedure -Plan for Urology to perform the TURP as an inpatient on #UTI -LE 3, WBC 1848, isabella 190 on admission -likely 2/2 retention -no leukocytosis -rocephin in ED -UCx pos for fungal - fluconazole (now d/c'ed by ID) #DM -BGM ACHS -Levemir -ISS #pAfib -Hep ggt coumadin bridge- completed -daily INR -monitor for therapeutic range -Will hold ASA (since 04/22) for TURP -Holding coumadin -on Hep ggt #LORY: RESOLVED -likely 2/2 retention -initial Shortage Worker 1.8 from baseline 1.3-1.5 (earlier this year) #FEN -NS -lytes wnl -DM diet #PPx -Hep ggt #Dispo -Med/Surg -will likely need vns or snf or nh on d/c because he appears to be unable to manage his home meds on his own Yung Damon MD PGY-1 IM Visit type - Emergency Visit Emergency Visit: No - New Patient This patient is new to me today: No - Critical Care Critical Care patient: No - Discharge Referral Referred to [facility] Med P.C.: No
[2018-04-27] MEDS: GEMFIBROZIL 600 MG TABLET (FP) PO SCH ×2 (06:55→16:45)
[2018-04-27] MEDS: INSULIN (LEVEMIR) 100 UNITS/ML UNITS SQ SCH ×2 (06:55→16:45)
--- NOTE | 2018-04-27 09:26 | PN ---
Progress Note (short form) - Note Progress Note: Chief Complaint: Events noted, notes reviewed, denies any chest pain, denies any dyspnea, remains on IV Heparin bridging to Coumadin, TURP/procedure is planned for outpatient History of Present Illness: Seen and examined. Events noted, notes reviewed, denies any chest pain, denies any dyspnea, remains on IV Heparin bridging to Coumadin, TURP/procedure is planned for outpatient Echocardiography dated 11/30/2017 revealed normal LV size and function, bi- atrial dilatation, with mild MR Echocardiography dated 12/21/2015 normal LV size and function, with mild TR and CA MPI study dated 12/21/2015 revealed small-moderate size apical defect compatible with mild ischemia with preserved LV function Medications: Current Medications Acetaminophen (Tylenol -) 650 mg PO Q4H PRN PRN Reason: PAIN LEVEL 1-5 Al Hydroxide/Mg Hydroxide (Mylanta Oral Suspension -) 30 ml PO Q6H PRN PRN Reason: DYSPEPSIA Amlodipine Besylate (Norvasc -) 2.5 mg PO DAILY [facility] Last Admin: 04/26/18 09:15 Dose: 2.5 mg Benzocaine/Menthol (Cepacol Lozenge -) 1 each MM PRN PRN PRN Reason: SORE THROAT Gemfibrozil (Lopid -) 600 mg PO BID@0700,1630 [facility] Last Admin: 04/27/18 06:55 Dose: 600 mg Heparin Sodium (Porcine) (Heparin -) 1,000 unit IVPUSH PRN PRN PRN Reason: Heparin Heparin Sodium (Porcine) (Heparin -) 5,000 unit IVPUSH PRN PRN PRN Reason: Heparin HEPARIN SOD,PORK IN 0.45% NACL (Heparin-1/2ns 25,000 Units/500) 25,000 units in 500 mls @ 20 mls/hr IVPB TITR [facility]; Protocol Last Admin: 04/26/18 09:21 Dose: 1,000 units/hr, 20 mls/hr Insulin Aspart (Novolog Vial Sliding Scale -) 1 vial SQ ACHS [facility]; Protocol Last Admin: 04/27/18 06:16 Dose: Not Given Insulin Detemir (Levemir Vial) 20 units SQ BIDI [facility] Last Admin: 04/27/18 06:55 Dose: 20 units Isosorbide Mononitrate (Imdur -) 30 mg PO DAILY [facility] Last Admin: 04/26/18 09:15 Dose: 30 mg Metoprolol Tartrate (Lopressor -) 25 mg PO BID [facility] Last Admin: 04/26/18 22:19 Dose: 25 mg Ranitidine HCl (Zantac -) 150 mg PO DAILY [facility] Last Admin: 04/26/18 09:15 Dose: 150 mg Ranolazine (Ranexa -) 500 mg PO BID [facility] Last Admin: 04/26/18 22:18 Dose: 500 mg Tamsulosin HCl (Flomax -) 0.4 mg PO DAILY@0830 [facility] Last Admin: 04/26/18 09:15 Dose: 0.4 mg Review of Systems Cardiovascular: As noted above Respiratory: denies: denies: Cough or Sputum Production Gastrointestinal: denies: Nausea, Vomiting, Diarrhea, Constipation or Abdominal Discomfort Musculoskeletal: No Symptoms Reported Endocrine: No Symptoms Reported Vital Signs: Last Vital Signs Temp Pulse Resp BP Pulse Ox 97.4 F L 56 L 18 115/65 95 04/27/18 05:10 04/27/18 05:10 04/27/18 05:10 04/27/18 05:10 04/26/18 20:40 Intake & Output 04/24/18 04/25/18 04/26/18 04/27/18 23:59 23:59 23:59 23:59 Intake Total 850 800 800 Output Total 2500 2600 2350 900 Balance -7803 -1800 -9340 -900 Constitutional: No Distress, Calm Neck: Supple Negative JVD Respiratory: Clear to A&P Bilaterally Cardiovascular: S1 S2 Regular rate Rhythm Grade 1/6 SM Gastrointestinal: Soft Benign Normal Bowel Sounds Ext: No Edema Labs: CBC, BMP 04/27/18 06:00 04/26/18 05:45 INR, PTT INR 1.51 (0.82-1.09) H 04/27/18 06:00 Assessment/Plan ASSESSMENT: 1. UTI with bladder outlet obstruction for TURP as outpatient 2. 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 Paroxysmal atrial fibrillation [id number] score of 6 on A/C 4. CAD post multi-vessel PCI stent angina pectoris, with history of evidence of demand ischemic injury, stable on medical therapy 5. Diastolic LV dysfunction with chronic class I NYHA classification LV failure , compensated/euvolemic 6. HTN 7. DM 8. Hyperlipidemia 9. History of KATJA 10. Chronic kidney disease 11. History of nephrolithiasis 12. Anemia PLAN: 1. Continue Lopressor, hemodynamics permitting 2. Continue Amlodipine, hemodynamics permitting 3. Continue Imdur, hemodynamics permitting 4. Continue Ranexa 5. Recommend the resumption of ARBS unless it is absolutely contraindicated 6. Continue Coumadin as per INR Heparin bridge with caution and close monitoring of CBC maintaining Hg equal or > 8.0 7. Can be transferred to floor care from the cardiovascular point of view martin Tapia M.D.
[2018-04-27] MEDS: HEPARIN SOD,PORK IN 0.45% NACL 25,000 UNITS/500 ML INFUS.BAG IVPB SCH (09:30)
[2018-04-27] MEDS: RANITIDINE HCL 150 MG TABLET (FP) PO SCH (09:31)
[2018-04-27] MEDS: TAMSULOSIN HCL 0.4 MG CAP.ER.24H (FP) PO SCH (09:31)
[2018-04-27] MEDS: RANOLAZINE E.R. 500 MG TABLET (FP) PO SCH ×2 (09:31→22:12)
[2018-04-27] MEDS: METOPROLOL TARTRATE 25 MG TABLET (FP) PO SCH ×2 (09:32→22:12)
[2018-04-27] MEDS: ISOSORBIDE MONONITRATE 30 MG TAB.SR.24H (FP) PO SCH (09:32)
[2018-04-27] MEDS: amLODIPine BESYLATE 2.5 MG TABLET (FP) PO SCH (09:32)
[2018-04-27] MEDS ORDERED: INSULIN (NOVOLOG) ASPART 100 UNITS/ML 10ML VIAL ONE (11:52)
--- NOTE | 2018-04-27 13:07 | PN ---
Teaching Attending Note Name of Resident: Yung Damon ATTENDING PHYSICIAN STATEMENT I saw and evaluated the patient. I reviewed the resident's note and discussed the case with the resident. I agree with the resident's findings and plan as documented. SUBJECTIVE:asymptomatic.denies CP, SOB, fevr, chills, N/V/C/D denies abdominal pain or hematuria OBJECTIVE: Last Vital Signs Temp Pulse Resp BP Pulse Ox 99.4 F 54 L 18 115/61 95 04/27/18 10:00 04/27/18 10:00 04/27/18 10:00 04/27/18 10:04/27/18 09:00 General NAD Abdomen soft, NT/ND obese ASSESSMENT AND PLAN: 72 yo M with PMHx of HTN, hyperlipidemia, diabetes, atrial flutter, AFIB (on coumadin), CAD (s/p stent), past TIAs, BPH, CKD, diverticulosis, and chronic hip pain (3X broken hip) admitted with lower complicated UTI, hyperglycemia, and inability to care for at home. 1. Lower complicated UTI (H/o ESBL UTI and nephrolithiasis requiring ureteral stent and nephrostomy tube 01/2017)- clinically improved. UCx showing yeast. mark completed antifungal therapy. ID and urology on board 2. LORY on CKD stage II (baseline 1.3-1.5) likely from retention/UTI +/- hypovolumia- now resolved. 3. Hyperglycemia-improved. cont current managment. titrate as needed.. 4. urinary retention- likely due to UTI. coughlin has been re-inserted/replaced multiple times in the past week. was scheduled for TURP as outpatient. may benefit from it being done during this hospital stay due to the frequency of coughlin changes. asa/coumadin on hold for possible surgery. currently draining clear urine 5. subtherapeutic INR-due to noncompliance. coumaidn on hold for possible surgeyr. cont hep ggt. 6. Calf pain- now resolved. duplex neg for DVT 7. hypomagnesemia- resolved 8. CAD 9. diastolic CHF- no signs of heart failure 10. BPH 11. DVT ppx- hep ggt
[2018-04-28] MEDS: GEMFIBROZIL 600 MG TABLET (FP) PO SCH ×2 (06:05→16:44)
[2018-04-28 06:24] LABS: BASO % 0.9 % (0-2.0); EOS % 5.3 % (0-4.5); HEMATOCRIT 36.3 % (35.4-49); HEMOGLOBIN 12.4 GM/dL (11.7-16.9); LYMPH % 49.9 % (8-40); MCH 31.7 pg (25.7-33.7); MCHC 34.1 g/dl (32.0-35.9); MEAN CELL VOLUME 92.9 fl (80-96); MEAN PLT VOLUME 8.9 fl (7.5-11.1); MONO % 11.9 % (3.8-10.2); PLATELET COUNT 331 K/MM3 (134-434); RBC 3.91 M/mm3 (4.00-5.60); RDW 14.2 % (11.9-15.9)
[2018-04-28] MEDS: INSULIN SLIDING SCALE (NOVOLOG) 1 VIAL SQ SCH ×4 (06:48→21:49)
[2018-04-28] MEDS: INSULIN (LEVEMIR) 100 UNITS/ML UNITS SQ SCH ×2 (06:48→16:44)
[2018-04-28 06:51] LABS: INR 1.27 (0.82-1.09); PROTHROMBIN TIME (PATIENT) 14.3 SEC (9.7-13.0)
[2018-04-28] MEDS: RANITIDINE HCL 150 MG TABLET (FP) PO SCH (09:28)
[2018-04-28] MEDS: RANOLAZINE E.R. 500 MG TABLET (FP) PO SCH ×2 (09:28→21:21)
[2018-04-28] MEDS: METOPROLOL TARTRATE 25 MG TABLET (FP) PO SCH ×2 (09:28→21:21)
[2018-04-28] MEDS: amLODIPine BESYLATE 2.5 MG TABLET (FP) PO SCH (09:28)
[2018-04-28] MEDS: ISOSORBIDE MONONITRATE 30 MG TAB.SR.24H (FP) PO SCH (09:28)
[2018-04-28] MEDS: TAMSULOSIN HCL 0.4 MG CAP.ER.24H (FP) PO SCH (09:28)
[2018-04-28] MEDS: HEPARIN SOD,PORK IN 0.45% NACL 25,000 UNITS/500 ML INFUS.BAG IVPB SCH (09:30)
--- NOTE | 2018-04-28 11:31 | PN ---
Progress Note, Physician History of Present Illness: He denies chest pain, dyspnea, near or true syncope, palpitations, orthopnea, PND, LE edema, await TURP in AM, coughlin draining clear urine. - Current Medication List Current Medications: Active Medications Acetaminophen (Tylenol -) 650 mg PO Q4H PRN PRN Reason: PAIN LEVEL 1-5 Al Hydroxide/Mg Hydroxide (Mylanta Oral Suspension -) 30 ml PO Q6H PRN PRN Reason: DYSPEPSIA Amlodipine Besylate (Norvasc -) 2.5 mg PO DAILY [facility] Last Admin: 04/28/18 09:28 Dose: 2.5 mg Benzocaine/Menthol (Cepacol Lozenge -) 1 each MM PRN PRN PRN Reason: SORE THROAT Gemfibrozil (Lopid -) 600 mg PO BID@0700,1630 [facility] Last Admin: 04/28/18 06:05 Dose: 600 mg Heparin Sodium (Porcine) (Heparin -) 1,000 unit IVPUSH PRN PRN PRN Reason: Heparin Heparin Sodium (Porcine) (Heparin -) 5,000 unit IVPUSH PRN PRN PRN Reason: Heparin HEPARIN SOD,PORK IN 0.45% NACL (Heparin-1/2ns 25,000 Units/500) 25,000 units in 500 mls @ 20 mls/hr IVPB TITR [facility]; Protocol Last Admin: 18 09:30 Dose: 1,000 units/hr, 20 mls/hr Insulin Aspart (Novolog Vial Sliding Scale -) 1 vial SQ ACHS [facility]; Protocol Last Admin: 04/28/18 06:48 Dose: Not Given Insulin Detemir (Levemir Vial) 20 units SQ BIDI [facility] Last Admin: 04/28/18 06:48 Dose: 20 units Isosorbide Mononitrate (Imdur -) 30 mg PO DAILY [facility] Last Admin: 04/28/18 09:28 Dose: 30 mg Metoprolol Tartrate (Lopressor -) 25 mg PO BID [facility] Last Admin: 04/28/18 09:28 Dose: 25 mg Ranitidine HCl (Zantac -) 150 mg PO DAILY [facility] Last Admin: 04/28/18 09:28 Dose: 150 mg Ranolazine (Ranexa -) 500 mg PO BID [facility] Last Admin: 04/28/18 09:28 Dose: 500 mg Tamsulosin HCl (Flomax -) 0.4 mg PO DAILY@0830 [facility] Last Admin: 04/28/18 09:28 Dose: 0.4 mg - Objective Vital Signs: Vital Signs Temperature 98.8 F 04/28/18 10:00 Pulse Rate 80 04/28/18 10:00 Respiratory Rate 18 04/28/18 10:00 Blood Pressure 117/47 04/28/18 10:00 O2 Sat by Pulse Oximetry (%) 98 04/28/18 09:00 Constitutional: Yes: No Distress, Calm Neck: Yes: Supple Cardiovascular: Yes: Regular Rate and Rhythm Respiratory: Yes: Regular, Diminished Gastrointestinal: Yes: Normal Bowel Sounds, Soft Genitourinary: Yes: Coughlin Present Edema: No Labs: CBC, BMP 04/28/18 06:00 04/26/18 05:45 INR, PTT INR 1.27 (0.82-1.09) H 04/28/18 06:00 Problem List - Problems (1) Acute urinary retention Code(s): R33.8 - OTHER RETENTION OF URINE (2) CKD (chronic kidney disease) Code(s): N18.9 - CHRONIC KIDNEY DISEASE, UNSPECIFIED Qualifiers: Chronic kidney disease stage: unspecified stage Qualified Code(s): N18.9 - Chronic kidney disease, unspecified (3) LORY (acute kidney injury) Code(s): N17.9 - ACUTE KIDNEY FAILURE, UNSPECIFIED (4) Atrial fibrillation by electrocardiography Code(s): I48.91 - UNSPECIFIED ATRIAL FIBRILLATION (5) CAD (coronary artery disease) Code(s): I25.10 - ATHSCL HEART DISEASE OF [place] CORONARY ARTERY W/O ANG PCTRS Qualifiers: Coronary Disease-Associated Artery/Lesion type: [place] artery [place] vs. transplanted heart: [place] heart Associated angina: without angina Qualified Code(s): I25.10 - Atherosclerotic heart disease of [place] coronary artery without angina pectoris (6) CVA (cerebral vascular accident) Code(s): I63.9 - CEREBRAL INFARCTION, UNSPECIFIED Qualifiers: CVA mechanism: embolism Precerebral and cerebral artery: middle cerebral artery Laterality of affected vessel: right Qualified Code(s): I63.411 - Cerebral infarction due to embolism of right middle cerebral artery (7) Cholelithiasis without obstruction Code(s): K80.20 - CALCULUS OF GALLBLADDER W/O CHOLECYSTITIS W/O OBSTRUCTION (8) 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 due to underlying condition with hyperglycemia Code(s): E08.65 - DIABETES DUE TO UNDERLYING CONDITION W HYPERGLYCEMIA Qualifiers: 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 half-way insulin use: with moth exterminator use Qualified Code( s): E08.65 - 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 due to underlying condition with hyperglycemia; Z79.4 - intermediate (current) use of insulin (9) Coughlin catheter problem Code(s): T83.9XXA - UNSP COMPLICATION OF GENITOURINARY PROSTH DEV/GRFT, INIT Qualifiers: Encounter type: initial encounter Qualified Code(s): T83.9XXA - Unspecified complication of genitourinary prosthetic device, implant and graft, initial encounter (10) HTN (hypertension) Code(s): I10 - ESSENTIAL (PRIMARY) HYPERTENSION Qualifiers: Hypertension type: essential hypertension Qualified Code(s): I10 - Essential (primary) hypertension (11) History of cardiac radiofrequency ablation (RFA) Code(s): Z98.89 - OTHER SPECIFIED POSTPROCEDURAL STATES * DO NOT USE * (12) Hyperlipidemia Code(s): E78.5 - HYPERLIPIDEMIA, UNSPECIFIED Qualifiers: Hyperlipidemia type: mixed hyperlipidemia Qualified Code(s): E78.2 - Mixed hyperlipidemia (13) Obstructive sleep apnea of adult Code(s): G47.33 - OBSTRUCTIVE SLEEP APNEA (ADULT) (PEDIATRIC) (14) S/P coronary artery stent placement Code(s): Z95.5 - PRESENCE OF CORONARY ANGIOPLASTY IMPLANT AND GRAFT (15) Urinary retention Code(s): R33.9 - RETENTION OF URINE, UNSPECIFIED (16) Pre-operative cardiovascular examination Code(s): Z01.810 - ENCOUNTER FOR PREPROCEDURAL CARDIOVASCULAR EXAMINATION Assessment/Plan Echocardiography Nov 30, 2017 revealed normal LV size and function, bi-atrial dilatation, with mild MR Echocardiography dated 12/21/2015 normal LV size and function, with mild TR and CA MPI study dated 12/21/2015 revealed small-moderate size apical defect compatible with mild ischemia with preserved LV function 1. Lower complicated UTI (h/o ESBL UTI and nephrolithiasis requiring ureteral stent/nephrostomy tube 01/2017), UCx with yeast 2. Pre-op CV evalutaion prior to TURP -> BPH with recurrent coughlin blockage 3. LORY on CKD stage II (baseline Cr 1.3-.1.5) likely from retention/UTI +/- hypovolumia, resolved 4. 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 Paroxysmal atrial fibrillation [id number] score of 6 on NOAC's - ? noncompliance vs. breakthrough neurologic event (NOAC failure) 6. CAD post multi-vessel PCI stent angina pectoris, with evidence of demand ischemic injury, stable on medical therapy 7. Diastolic LV dysfunction with chronic class I NYHA classification LV failure , compensated/euvolemic 8. HTN 9. DM 10. Hyperlipidemia 11. History of KATJA 12. Anemia Plan: 1. Given absence of symptoms of acute coronary syndrome, decompensated CHF or malignant arrhythmia and recent low risk stress testing within last 5 years, may proceed with TURP from CV-standpoint without further testing once INR acceptable, plan as outpatient 2. Continue Lopressor 25 bid as hemodynamics permit 3. Continue Amlodipine 2.5 qd 4. Continue Cozaar 50 qd with close mentoring of renal function, hemodynamics permitting 5. Continue Imdur 30 qd 6. Continue Ranexa 500 bid 7. Heparin gtt pre-procedure with resume coumadin per INR once post-op hemostasis achieved 8. Continue Lopid 600 bid and Welchol 625 bid 9. PT, GI prophylaxis
[2018-04-28] MEDS ORDERED: INSULIN (NOVOLOG) ASPART 100 UNITS/ML 10ML VIAL ONE ×2 (11:45→21:12)
--- NOTE | 2018-04-28 13:09 | PN ---
Teaching Attending Note Name of Resident: Yung Damon ATTENDING PHYSICIAN STATEMENT I saw and evaluated the patient. I reviewed the resident's note and discussed the case with the resident. I agree with the resident's findings and plan as documented. SUBJECTIVE:asymptomatic. denies Cp, SOB, fever, chills, abdominal pain, N/V/C/D or hematuria coughlin draining clear urine OBJECTIVE: Last Vital Signs Temp Pulse Resp BP Pulse Ox 98.8 F 80 18 117/47 98 04/28/18 10:00 04/28/18 10:00 04/28/18 10:00 04/28/18 10:04/28/18 09:00 General NAD Abdomen soft, NT/ND obese ASSESSMENT AND PLAN: 72 yo M with PMHx of HTN, hyperlipidemia, diabetes, atrial flutter, AFIB (on coumadin), CAD (s/p stent), past TIAs, BPH, CKD, diverticulosis, and chronic hip pain (3X broken hip) admitted with lower complicated UTI, hyperglycemia, and inability to care for at home. 1. Lower complicated UTI (H/o ESBL UTI and nephrolithiasis requiring ureteral stent and nephrostomy tube 01/2017)- clinically improved. UCx showing yeast. now completed antifungal therapy. ID and urology on board 2. LORY on CKD stage II (baseline 1.3-1.5) likely from retention/UTI +/- hypovolumia- now resolved. 3. Hyperglycemia-improved. cont current management. titrate as needed.. 4. urinary retention- likely due to UTI. coughlin has been re-inserted/replaced multiple times in the past week. NPO for TURP tomorrow. asa/coumadin on hold. currently draining clear urine 5. subtherapeutic INR-due to noncompliance. Coumadin on hold for surgery. cont hep ggt. 6. Calf pain- now resolved. duplex neg for DVT 7. hypomagnesemia- resolved 8. CAD 9. diastolic CHF- no signs of heart failure 10. BPH 11. DVT ppx- hep ggt
[2018-04-28] MEDS ORDERED: PT OWN MED DRAWER 7, Y5N ONE (13:18)
--- NOTE | 2018-04-28 13:39 | PN ---
Physical Exam: SUBJECTIVE: Patient seen and examined at bedside. No acute events. Pt feels a little better. OBJECTIVE: Vital Signs Period Temp Pulse Resp BP Sys/Crawford Pulse Ox Last 24 Hr 97.6 F-99.6 F 52-80 18-20 101-128/47-65 95-98 unchanged Gen: comfortable in chair in NAD HEENT: NCAT, EOMI Neck: supple, no jvd Cardio: distant heart sounds s1s2 no murmurs/rubs/gallops appreciated Pulm: cta Abd: vague mild diffuse tenderness, normal bs, soft, cath draining Ext: 2+ pulses, no edema Laboratory Results - last 24 hr 04/27/18 04/27/18 04/28/18 16:35 22:11 05:51 WBC RBC Hgb Hct MCV MCH MCHC RDW Plt Count MPV Absolute Neuts (auto) Neutrophils % Lymphocytes % Monocytes % Eosinophils % Basophils % Nucleated RBC % PT with INR INR PTT (Actin FS) POC Glucometer 234 290 88 04/28/18 04/28/18 04/28/18 06:00 06:00 06:00 WBC 6.0 RBC 3.91 L Hgb 12.4 Hct 36.3 MCV 92.9 MCH 31.7 MCHC 34.1 RDW 14.2 Plt Count 331 MPV 8.9 Absolute Neuts (auto) 1.9 Neutrophils % 32.0 L Lymphocytes % 49.9 H Monocytes % 11.9 H Eosinophils % 5.3 H Basophils % 0.9 Nucleated RBC % 0 PT with INR 14.30 H INR 1.27 H PTT (Actin FS) 51.5 H POC Glucometer 04/28/18 04/28/18 06:47 11:42 WBC RBC Hgb Hct MCV MCH MCHC RDW Plt Count MPV Absolute Neuts (auto) Neutrophils % Lymphocytes % Monocytes % Eosinophils % Basophils % Nucleated RBC % PT with INR INR PTT (Actin FS) POC Glucometer 114 176 Active Medications Generic Name Dose Route Start Last Admin Trade Name Freq PRN Reason Stop Dose Admin Acetaminophen 650 mg 04/24/18 19:16 Tylenol - PO Q4H PRN PAIN LEVEL 1-5 Al Hydroxide/Mg Hydroxide 30 ml 04/24/18 19:16 Mylanta Oral Suspension - PO Q6H PRN DYSPEPSIA Amlodipine Besylate 2.5 mg 04/25/18 10:00 04/28/18 09:28 Norvasc - PO 2.5 mg DAILY LONNIE Administration Benzocaine/Menthol 1 each 04/24/18 19:16 Cepacol Lozenge - MM PRN PRN SORE THROAT Gemfibrozil 600 mg 04/25/18 07:00 04/28/18 06:05 Lopid - PO 600 mg BID@0700,1630 LONNIE Administration Heparin Sodium (Porcine) 1,000 unit 04/24/18 09:16 Heparin - IVPUSH PRN PRN Heparin Heparin Sodium (Porcine) 5,000 unit 04/24/18 09:16 Heparin - IVPUSH PRN PRN Heparin HEPARIN SOD,PORK IN 0.45% NACL 25,000 units in 500 mls @ 20 mls/hr 04/24/18 09 :30 04/27/18 09:30 Heparin-1/2ns 25,000 Units/500 IVPB 1,000 units/hr TITR LONNIE 20 mls/hr Administration Protocol 1,000 UNITS/HR Insulin Aspart 1 vial 04/24/18 22:00 04/28/18 11:54 Novolog Vial Sliding Scale - SQ 2 unit ACHS [facility] Administration Protocol Insulin Detemir 20 units 04/25/18 07:00 04/28/18 06:48 Levemir Vial SQ 20 units BIDI [facility] Administration Isosorbide Mononitrate 30 mg 04/25/18 10:00 04/28/18 09:28 Imdur - PO 30 mg DAILY LONNIE Administration Metoprolol Tartrate 25 mg 04/24/18 22:00 04/28/18 09:28 Lopressor - PO 25 mg BID LONNIE Administration Ranitidine HCl 150 mg 04/25/18 10:00 04/28/18 09:28 Zantac - PO 150 mg DAILY LONNIE Administration Ranolazine 500 mg 04/24/18 22:00 04/28/18 09:28 Ranexa - PO 500 mg BID [facility] Administration Tamsulosin HCl 0.4 mg 04/25/18 08:30 04/28/18 09:28 Flomax - PO 0.4 mg DAILY@0830 [facility] Administration ASSESSMENT/PLAN: Pt is a 72 y/o M with PMH AF and BPH who presents to ED with urinary retention, dysuria. Pt found to have UTI and LORY. #Retention -likely 2/2 BPH and/or med noncompliance -initially straight cath yielded approx 300 cc -Flomax -monitor -Urology consulted in ED -[place] repeatedly stopped draining and required replacement/repositioning. Currently draining well -Urology is considering TURP. Will see the pt in clinic as pt has been getting ASA and must be off ASA for at least 1 week. -Pt seen by Cardio. Rec holding ASA and resuming once hemostasis achieved post- procedure -Plan for Urology to perform the TURP as an inpatient on #UTI -LE 3, WBC 1848, isabella 190 on admission -likely 2/2 retention -no leukocytosis -rocephin in ED -UCx pos for fungal - fluconazole (now d/c'ed by ID) #DM -BGM ACHS -Levemir -ISS #pAfib -Hep ggt coumadin bridge- completed -daily INR -monitor for therapeutic range -Will hold ASA (since 04/22) for TURP -Holding coumadin -on Hep ggt #LORY: RESOLVED -likely 2/2 retention -initial Director Industrial Relations 1.8 from baseline 1.3-1.5 (earlier this year) #FEN -NS -lytes wnl -DM diet #PPx -Hep ggt #Dispo -Med/Surg -will likely need vns or snf or nh on d/c because he appears to be unable to manage his home meds on his own Yung Damon MD PGY-1 IM Visit type - Emergency Visit Emergency Visit: No - New Patient This patient is new to me today: No - Critical Care Critical Care patient: No - Discharge Referral Referred to [facility] Med P.C.: No
[2018-04-29] MEDS: INSULIN SLIDING SCALE (NOVOLOG) 1 VIAL SQ SCH ×4 (06:11→21:32)
[2018-04-29] MEDS: GEMFIBROZIL 600 MG TABLET (FP) PO SCH ×2 (06:11→16:55)
[2018-04-29] MEDS ORDERED: INSULIN (NOVOLOG) ASPART 100 UNITS/ML 10ML VIAL ONE (06:39)
[2018-04-29] MEDS: INSULIN (LEVEMIR) 100 UNITS/ML UNITS SQ SCH ×2 (06:53→16:55)
[2018-04-29 07:57] LABS: BASO % 0.9 % (0-2.0); EOS % 4.6 % (0-4.5); HEMATOCRIT 37.7 % (35.4-49); HEMOGLOBIN 12.7 GM/dL (11.7-16.9); LYMPH % 45.5 % (8-40); MCH 31.1 pg (25.7-33.7); MCHC 33.8 g/dl (32.0-35.9); MEAN PLT VOLUME 9.1 fl (7.5-11.1); MONO % 9.4 % (3.8-10.2); NEUT % 39.6 % (42.8-82.8); PLATELET COUNT 337 K/MM3 (134-434); RDW 14.2 % (11.9-15.9); WHITE BLOOD COUNT 6.1 K/mm3 (4.0-10.0)
[2018-04-29 08:09] LABS: INR 1.14 (0.82-1.09); PROTHROMBIN TIME (PATIENT) 12.9 SEC (9.7-13.0)
[2018-04-29] MEDS: ISOSORBIDE MONONITRATE 30 MG TAB.SR.24H (FP) PO SCH (09:30)
[2018-04-29] MEDS: METOPROLOL TARTRATE 25 MG TABLET (FP) PO SCH ×2 (09:30→21:32)
[2018-04-29] MEDS: TAMSULOSIN HCL 0.4 MG CAP.ER.24H (FP) PO SCH (09:30)
[2018-04-29] MEDS: RANOLAZINE E.R. 500 MG TABLET (FP) PO SCH ×2 (09:30→21:32)
[2018-04-29] MEDS: amLODIPine BESYLATE 2.5 MG TABLET (FP) PO SCH (09:30)
[2018-04-29] MEDS: RANITIDINE HCL 150 MG TABLET (FP) PO SCH (09:30)
--- NOTE | 2018-04-29 10:21 | PN ---
Physical Exam: SUBJECTIVE: Patient seen and examined at bedside. No acute events. Pt feels a little better. For TURP today. OBJECTIVE: Vital Signs Period Temp Pulse Resp BP Sys/Crawford Pulse Ox Last 24 Hr 96.7 F-98.8 F 50-69 18-20 114-143/51-76 97-98 unchanged Gen: comfortable in chair in NAD HEENT: NCAT, EOMI Neck: supple, no jvd Cardio: distant heart sounds s1s2 no murmurs/rubs/gallops appreciated Pulm: cta Abd: vague mild diffuse tenderness, normal bs, soft, cath draining Ext: 2+ pulses, no edema Laboratory Results - last 24 hr 04/28/18 04/28/18 04/28/18 11:42 16:46 21:47 WBC RBC Hgb Hct MCV MCH MCHC RDW Plt Count MPV Absolute Neuts (auto) Neutrophils % Lymphocytes % Monocytes % Eosinophils % Basophils % Nucleated RBC % PT with INR INR PTT (Actin FS) POC Glucometer 176 266 216 04/29/18 04/29/18 04/29/18 06:09 06:30 06:30 WBC 6.1 RBC 4.10 Hgb 12.7 Hct 37.7 MCV 92.0 MCH 31.1 MCHC 33.8 RDW 14.2 Plt Count 337 MPV 9.1 Absolute Neuts (auto) 2.4 Neutrophils % 39.6 L D Lymphocytes % 45.5 H Monocytes % 9.4 Eosinophils % 4.6 H Basophils % 0.9 Nucleated RBC % 0 PT with INR 12.90 INR 1.14 PTT (Actin FS) POC Glucometer 108 04/29/18 07:00 WBC RBC Hgb Hct MCV MCH MCHC RDW Plt Count MPV Absolute Neuts (auto) Neutrophils % Lymphocytes % Monocytes % Eosinophils % Basophils % Nucleated RBC % PT with INR INR PTT (Actin FS) 34.0 D POC Glucometer Active Medications Generic Name Dose Route Start Last Admin Trade Name Freq PRN Reason Stop Dose Admin Acetaminophen 650 mg 04/24/18 19:16 Tylenol - PO Q4H PRN PAIN LEVEL 1-5 Al Hydroxide/Mg Hydroxide 30 ml 04/24/18 19:16 Mylanta Oral Suspension - PO Q6H PRN DYSPEPSIA Amlodipine Besylate 2.5 mg 04/25/18 10:00 06/28/18 09:30 Norvasc - PO Not Given DAILY [facility] Benzocaine/Menthol 1 each 04/24/18 19:16 Cepacol Lozenge - MM PRN PRN SORE THROAT Gemfibrozil 600 mg 04/25/18 07:00 04/29/18 06:11 Lopid - PO Not Given BID@0700,1630 [facility] Insulin Aspart 1 vial 04/24/18 22:00 04/29/18 06:11 Novolog Vial Sliding Scale - SQ Not Given [facility] Protocol Insulin Detemir 20 units 04/25/18 07:00 04/29/18 06:53 Levemir Vial SQ Not Given BIDI [facility] Isosorbide Mononitrate 30 mg 04/25/18 10:00 04/29/18 09:30 Imdur - PO Not Given DAILY [facility] Metoprolol Tartrate 25 mg 04/24/18 22:00 04/29/18 09:30 Lopressor - PO Not Given BID [facility] Ranitidine HCl 150 mg 04/25/18 10:00 04/29/18 09:30 Zantac - PO Not Given DAILY [facility] Ranolazine 500 mg 04/24/18 22:00 04/29/18 09:30 Ranexa - PO Not Given BID [facility] Tamsulosin HCl 0.4 mg 04/25/18 08:30 04/29/18 09:30 Flomax - PO Not Given DAILY@0830 [facility] ASSESSMENT/PLAN: Pt is a 72 y/o M with PMH AF and BPH who presents to ED with urinary retention, dysuria. Pt found to have UTI and LORY. #Retention -likely 2/2 BPH and/or med noncompliance -initially straight cath yielded approx 300 cc -Flomax -monitor -Urology consulted in ED -[place] repeatedly stopped draining and required replacement/repositioning. Currently draining well -Urology is considering TURP. Will see the pt in clinic as pt has been getting ASA and must be off ASA for at least 1 week. -Pt seen by Cardio. Rec holding ASA and resuming once hemostasis achieved post- procedure -Plan for Urology to perform the TURP today #UTI -LE 3, WBC 1848, isabella 190 on admission -likely 2/2 retention -no leukocytosis -rocephin in ED -UCx pos for fungal - fluconazole (now d/c'ed by ID) #DM -BGM ACHS -Levemir -ISS #pAfib -Hep ggt coumadin bridge- completed -daily INR -monitor for therapeutic range -Will hold ASA (since 04/22) for TURP -Holding coumadin -on Hep ggt #LORY: RESOLVED -likely 2/2 retention -initial Set Up And Lay Out Inspector 1.8 from baseline 1.3-1.5 (earlier this year) #FEN -NS -lytes wnl -DM diet #PPx -Hep ggt #Dispo -Med/Surg -will likely need vns or snf or nh on d/c because he appears to be unable to manage his home meds on his own Yung Damon MD PGY-1 IM Visit type - Emergency Visit Emergency Visit: No - New Patient This patient is new to me today: No - Critical Care Critical Care patient: No - Discharge Referral Referred to [facility] Med P.C.: No
--- NOTE | 2018-04-29 10:25 | PN ---
Progress Note, Physician History of Present Illness: Off floor undergoing TURP. - Current Medication List Current Medications: Active Medications Acetaminophen (Tylenol -) 650 mg PO Q4H PRN PRN Reason: PAIN LEVEL 1-5 Al Hydroxide/Mg Hydroxide (Mylanta Oral Suspension -) 30 ml PO Q6H PRN PRN Reason: DYSPEPSIA Amlodipine Besylate (Norvasc -) 2.5 mg PO DAILY [facility] Last Admin: 04/29/18 09:30 Dose: Not Given Benzocaine/Menthol (Cepacol Lozenge -) 1 each MM PRN PRN PRN Reason: SORE THROAT Gemfibrozil (Lopid -) 600 mg PO BID@0700,1630 [facility] Last Admin: 04/29/18 06:11 Dose: Not Given Insulin Aspart (Novolog Vial Sliding Scale -) 1 vial SQ [facility]; Protocol Last Admin: 04/29/18 06:11 Dose: Not Given Insulin Detemir (Levemir Vial) 20 units SQ BIDI [facility] Last Admin: 04/29/18 06:53 Dose: Not Given Isosorbide Mononitrate (Imdur -) 30 mg PO DAILY [facility] Last Admin: 04/29/18 09:30 Dose: Not Given Metoprolol Tartrate (Lopressor -) 25 mg PO BID [facility] Last Admin: 04/29/18 09:30 Dose: Not Given Ranitidine HCl (Zantac -) 150 mg PO DAILY [facility] Last Admin: 04/29/18 09:30 Dose: Not Given Ranolazine (Ranexa -) 500 mg PO BID [facility] Last Admin: 04/29/18 09:30 Dose: Not Given Tamsulosin HCl (Flomax -) 0.4 mg PO DAILY@0830 [facility] Last Admin: 04/29/18 09:30 Dose: Not Given - Objective Vital Signs: Vital Signs Temperature 98.5 F 04/29/18 10:00 Pulse Rate 50 L 04/29/18 10:00 Respiratory Rate 18 04/29/18 10:00 Blood Pressure 142/55 04/29/18 10:00 O2 Sat by Pulse Oximetry (%) 97 04/29/18 09:00 Labs: CBC, BMP 04/29/18 06:30 04/26/18 05:45 INR, PTT INR 1.14 (0.82-1.09) 04/29/18 06:30 Problem List - Problems (1) Acute urinary retention Code(s): R33.8 - OTHER RETENTION OF URINE (2) CKD (chronic kidney disease) Code(s): N18.9 - CHRONIC KIDNEY DISEASE, UNSPECIFIED Qualifiers: Chronic kidney disease stage: unspecified stage Qualified Code(s): N18.9 - Chronic kidney disease, unspecified (3) LORY (acute kidney injury) Code(s): N17.9 - ACUTE KIDNEY FAILURE, UNSPECIFIED (4) Atrial fibrillation by electrocardiography Code(s): I48.91 - UNSPECIFIED ATRIAL FIBRILLATION (5) CAD (coronary artery disease) Code(s): I25.10 - ATHSCL HEART DISEASE OF [place] CORONARY ARTERY W/O ANG PCTRS Qualifiers: Coronary Disease-Associated Artery/Lesion type: [place] artery [place] vs. transplanted heart: [place] heart Associated angina: without angina Qualified Code(s): I25.10 - Atherosclerotic heart disease of [place] coronary artery without angina pectoris (6) CVA (cerebral vascular accident) Code(s): I63.9 - CEREBRAL INFARCTION, UNSPECIFIED Qualifiers: CVA mechanism: embolism Precerebral and cerebral artery: middle cerebral artery Laterality of affected vessel: right Qualified Code(s): I63.411 - Cerebral infarction due to embolism of right middle cerebral artery (7) Cholelithiasis without obstruction Code(s): K80.20 - CALCULUS OF GALLBLADDER W/O CHOLECYSTITIS W/O OBSTRUCTION (8) 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 due to underlying condition with hyperglycemia Code(s): E08.65 - DIABETES DUE TO UNDERLYING CONDITION W HYPERGLYCEMIA Qualifiers: 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 termite inspector insulin use: with termite inspector use Qualified Code( s): E08.65 - 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 due to underlying condition with hyperglycemia; Z79.4 - termite control service representative (current) use of insulin (9) [place] catheter problem Code(s): T83.9XXA - UNSP COMPLICATION OF GENITOURINARY PROSTH DEV/GRFT, INIT Qualifiers: Encounter type: initial encounter Qualified Code(s): T83.9XXA - Unspecified complication of genitourinary prosthetic device, implant and graft, initial encounter (10) HTN (hypertension) Code(s): I10 - ESSENTIAL (PRIMARY) HYPERTENSION Qualifiers: Hypertension type: essential hypertension Qualified Code(s): I10 - Essential (primary) hypertension (11) History of cardiac radiofrequency ablation (RFA) Code(s): Z98.89 - OTHER SPECIFIED POSTPROCEDURAL STATES * DO NOT USE * (12) Hyperlipidemia Code(s): E78.5 - HYPERLIPIDEMIA, UNSPECIFIED Qualifiers: Hyperlipidemia type: mixed hyperlipidemia Qualified Code(s): E78.2 - Mixed hyperlipidemia (13) Obstructive sleep apnea of adult Code(s): G47.33 - OBSTRUCTIVE SLEEP APNEA (ADULT) (PEDIATRIC) (14) S/P coronary artery stent placement Code(s): Z95.5 - PRESENCE OF CORONARY ANGIOPLASTY IMPLANT AND GRAFT (15) Urinary retention Code(s): R33.9 - RETENTION OF URINE, UNSPECIFIED (16) Pre-operative cardiovascular examination Code(s): Z01.810 - ENCOUNTER FOR PREPROCEDURAL CARDIOVASCULAR EXAMINATION Assessment/Plan Echocardiography Nov 30, 2017 revealed normal LV size and function, bi-atrial dilatation, with mild MR Echocardiography dated 12/21/2015 normal LV size and function, with mild TR and GA MPI study dated 12/21/2015 revealed small-moderate size apical defect compatible with mild ischemia with preserved LV function 1. Lower complicated UTI (h/o ESBL UTI and nephrolithiasis requiring ureteral stent/nephrostomy tube 01/2017), UCx with yeast 2. Pre-op CV evalutaion prior to TURP -> BPH with recurrent coughlin blockage 3. LORY on CKD stage II (baseline Cr 1.3-.1.5) likely from retention/UTI +/- hypovolumia, resolved 4. 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 Paroxysmal atrial fibrillation [id number] score of 6 on NOAC's - ? noncompliance vs. breakthrough neurologic event (NOAC failure) 6. CAD post multi-vessel PCI stent angina pectoris, with evidence of demand ischemic injury, stable on medical therapy 7. Diastolic LV dysfunction with chronic class I NYHA classification LV failure , compensated/euvolemic 8. HTN 9. DM 10. Hyperlipidemia 11. History of KATJA 12. Anemia Plan: 1. Given absence of symptoms of acute coronary syndrome, decompensated CHF or malignant arrhythmia and recent low risk stress testing within last 5 years, may proceed with TURP from CV-standpoint without further testing once INR acceptable, plan as outpatient 2. Continue Lopressor 25 bid as hemodynamics permit 3. Continue Amlodipine 2.5 qd 4. Continue Cozaar 50 qd with close mentoring of renal function, hemodynamics permitting 5. Continue Imdur 30 qd 6. Continue Ranexa 500 bid 7. Heparin gtt pre-procedure with resume coumadin per INR once post-op hemostasis achieved 8. Continue Lopid 600 bid and Welchol 625 bid 9. PT, GI prophylaxis, will see upon return to floor
[2018-04-29] MEDS ORDERED: BUPIVACAINE 0.75% IN DEXTROSE/PF 2ML AMPULE NR ONE (10:43)
[2018-04-29] MEDS ORDERED: ceFAZolin SODIUM 1 GM VIAL IVPB ONE (10:45)
[2018-04-29] MEDS ORDERED: GENTAMICIN 80MG PREMIX BAG IVPB ONE (10:55)
[2018-04-29] MEDS ORDERED: MIDAZOLAM HCL 2 MG/2 ML SINGLE DOSE VIAL ONE ×2 (11:02→11:23)
[2018-04-29] MEDS ORDERED: GENTAMICIN SO4 80 MG/2 ML VIAL ONE (11:15)
--- NOTE | 2018-04-29 11:50 | OP ---
Operative Note - Note: Operative Date: 04/29/18 Pre-Operative Diagnosis: BPH/retention Operation: cysto/bipolar transurethral vaporization/resection of prostate Findings: BPH Post-Operative Diagnosis: Same as Pre-op Surgeon: Daniel Edmondson Anesthesia: Spinal Specimens Removed: prostate chips Estimated Blood Loss (mls): 10
[2018-04-29] MEDS ORDERED: MAG HYDROX/AL HYDROX/SIMETH 30 ML UNIT-DOSE CUP PO PRN (12:06)
[2018-04-29] MEDS ORDERED: ONDANSETRON 4 MG/2 ML VIAL IVPUSH PRN (12:24)
[2018-04-29] MEDS ORDERED: LACTATED RINGERS SOLUTION 1,000 ML IV SCH (12:30)
[2018-04-29] MEDS ORDERED: ACETAMINOPHEN 325 MG TABLET (FP) PO PRN (13:02)
[2018-04-29] MEDS ORDERED: BENZOCAINE/MENTH/CETYLPYRD CL 1 EACH LOZENGE MM PRN (13:14)
--- NOTE | 2018-04-29 14:11 | OP ---
DATE OF OPERATION: 04/29/2018 PREOPERATIVE DIAGNOSIS: Benign prostatic hypertrophy with urinary retention. POSTOPERATIVE DIAGNOSIS: Benign prostatic hypertrophy with urinary retention. PROCEDURE PERFORMED: Cystoscopy, transurethral vaporization and resection of the prostate. SURGEON: Alpesh Smith MD INDICATIONS: The patient is a 72-year-old male with history of BPH, most recently hospitalized for a UTI and failed multiple voiding trials. After reviewing treatment options, the patient elected to undergo transurethral vaporization and resection of the prostate. He understood the risks of bleeding, infection, impotence, incontinence and potential persistent retention due to underlying bladder dysfunction. DESCRIPTION OF PROCEDURE: After informed consent was obtained, the patient was taken to the OR and placed supine on the operating table. With cardiac monitoring established, a spinal anesthetic was then given. He was prepped and draped in the dorsal lithotomy position. The 20 mL resectoscope was inserted into the urethra without difficulty. The anterior urethra was normal. The prostatic urethra was 4 cm and visually occlusive lateral lobes. He had a prior TURP and so there was no significant median lobe tissue. At this point, using a loop, lateral lobe tissue was resected. A wide open channel was created. The chips were then removed with the [employer] evacuator, and then the rest of the lateral lobe tissue was vaporized using the plasma button. There was no resection or vaporization within 1 cm of the verumontanum, to minimize incontinence. With the resectoscope situated just past the verumontanum, looking into the bladder, there was a wide open channel noted. No injury to the bladder, and bilateral orifices were seen in their normal anatomic position, without injury. The resectoscope was then removed, and a 24-[place] was then placed to straight drainage. [place]-tinged urine was retrieved. The patient was then awoke from anesthesia and transferred to the recovery room in stable condition. There were no complications. Estimated blood loss was minimal. ALPESH SMITH M.D. [id number]
--- NOTE | 2018-04-29 15:33 | PN ---
Teaching Attending Note Name of Resident: Yung Damon ATTENDING PHYSICIAN STATEMENT I saw and evaluated the patient. I reviewed the resident's note and discussed the case with the resident. I agree with the resident's findings and plan as documented. SUBJECTIVE:asymptomatic. denies CP, SOB, fever, chills, N/V/C?D urine draining clear urine OBJECTIVE: Last Vital Signs Temp Pulse Resp BP Pulse Ox 97.6 F 67 18 142/69 100 04/29/18 14:00 04/29/18 14:00 04/29/18 13:25 04/29/18 14:00 04/29/18 13:00 General NAD Abdomen soft, NT/ND obese ASSESSMENT AND PLAN: 72 yo M with PMHx of HTN, hyperlipidemia, diabetes, atrial flutter, AFIB (on coumadin), CAD (s/p stent), past TIAs, BPH, CKD, diverticulosis, and chronic hip pain (3X broken hip) admitted with lower complicated UTI, hyperglycemia, and inability to care for at home. 1. Lower complicated UTI (H/o ESBL UTI and nephrolithiasis requiring ureteral stent and nephrostomy tube 01/2017)- clinically improved. UCx showing yeast. now completed antifungal therapy. ID and urology on board 2. LORY on CKD stage II (baseline 1.3-1.5) likely from retention/UTI +/- hypovolumia- now resolved. 3. Hyperglycemia-improved. cont current management. titrate as needed.. 4. urinary retention- likely due to UTI and BPH. s/p TURP 04/29. urine draining clear urine. will repeat CBC In the am. 5. subtherapeutic INR-due to noncompliance. Coumadin on hold for surgery. will re-start tomorrow 6. Calf pain- now resolved. duplex neg for DVT 7. hypomagnesemia- resolved 8. CAD- re-start ASA tomorrow 9. diastolic CHF- no signs of heart failure 10. BPH 11. DVT ppx- SCD. pharmacologic on hold from surgery 12. d/c plannig tomorrow if urine remains clear. no indication for bridging in the hospital at this time
[2018-04-29] MEDS ORDERED: OXYMETAZOLINE 0.05% NASAL SOLUTION 15 ML BOTTLE NS ONE (22:30)
[2018-04-30] MEDS: INSULIN SLIDING SCALE (NOVOLOG) 1 VIAL SQ SCH ×4 (06:49→22:09)
[2018-04-30] MEDS: INSULIN (LEVEMIR) 100 UNITS/ML UNITS SQ SCH ×2 (06:50→16:57)
[2018-04-30] MEDS: GEMFIBROZIL 600 MG TABLET (FP) PO SCH ×2 (06:50→16:57)
[2018-04-30] MEDS ORDERED: INSULIN (NOVOLOG) ASPART 100 UNITS/ML 10ML VIAL ONE ×3 (06:56→20:59)
[2018-04-30 07:18] LABS: BASO % 0.6 % (0-2.0); EOS % 3.7 % (0-4.5); HEMATOCRIT 39.8 % (35.4-49); HEMOGLOBIN 13.4 GM/dL (11.7-16.9); LYMPH % 29.2 % (8-40); MCH 31.1 pg (25.7-33.7); MCHC 33.6 g/dl (32.0-35.9); MEAN CELL VOLUME 92.6 fl (80-96); MONO % 8.4 % (3.8-10.2); NEUT % 58.1 % (42.8-82.8); PLATELET COUNT 329 K/MM3 (134-434); RDW 14.2 % (11.9-15.9); WHITE BLOOD COUNT 8.3 K/mm3 (4.0-10.0)
[2018-04-30] MEDS: TAMSULOSIN HCL 0.4 MG CAP.ER.24H (FP) PO SCH (08:02)
[2018-04-30] MEDS: RANOLAZINE E.R. 500 MG TABLET (FP) PO SCH ×2 (09:02→22:09)
[2018-04-30] MEDS: METOPROLOL TARTRATE 25 MG TABLET (FP) PO SCH ×2 (09:02→22:09)
[2018-04-30] MEDS: RANITIDINE HCL 150 MG TABLET (FP) PO SCH (09:02)
[2018-04-30] MEDS: ISOSORBIDE MONONITRATE 30 MG TAB.SR.24H (FP) PO SCH (09:02)
[2018-04-30] MEDS: amLODIPine BESYLATE 2.5 MG TABLET (FP) PO SCH (09:02)
--- NOTE | 2018-04-30 11:16 | PN ---
Progress Note, Physician History of Present Illness: POD#1 cysto/TURP with hematuria clearing. - Current Medication List Current Medications: Active Medications Acetaminophen (Tylenol -) 650 mg PO Q4H PRN PRN Reason: PAIN LEVEL 1-5 Al Hydroxide/Mg Hydroxide (Mylanta Oral Suspension -) 30 ml PO Q6H PRN PRN Reason: DYSPEPSIA Amlodipine Besylate (Norvasc -) 2.5 mg PO DAILY [facility] Last Admin: 04/30/18 09:02 Dose: 2.5 mg Benzocaine/Menthol (Cepacol Lozenge -) 1 each MM PRN PRN PRN Reason: SORE THROAT Gemfibrozil (Lopid -) 600 mg PO BID@0700,1630 [facility] Last Admin: 04/30/18 06:50 Dose: 600 mg Insulin Aspart (Novolog Vial Sliding Scale -) 1 vial SQ [facility]; Protocol Last Admin: 04/30/18 06:49 Dose: 2 unit Insulin Detemir (Levemir Vial) 20 units SQ BIDI [facility] Last Admin: 04/30/18 06:50 Dose: 20 unit Isosorbide Mononitrate (Imdur -) 30 mg PO DAILY [facility] Last Admin: 04/30/18 09:02 Dose: 30 mg Metoprolol Tartrate (Lopressor -) 25 mg PO BID [facility] Last Admin: 04/30/18 09:02 Dose: 25 mg Ondansetron HCl (Zofran Injection) 4 mg IVPUSH Q6H PRN PRN Reason: NAUSEA AND/OR VOMITING Stop: 04/30/18 12:23 Ranitidine HCl (Zantac -) 150 mg PO DAILY [facility] Last Admin: 04/30/18 09:02 Dose: 150 mg Ranolazine (Ranexa -) 500 mg PO BID [facility] Last Admin: 04/30/18 09:02 Dose: 500 mg Tamsulosin HCl (Flomax -) 0.4 mg PO DAILY@0830 [facility] Last Admin: 04/30/18 08:02 Dose: 0.4 mg - Objective Vital Signs: Vital Signs Temperature 98.4 F 04/30/18 09:06 Pulse Rate 79 04/30/18 09:06 Respiratory Rate 18 04/30/18 09:06 Blood Pressure 120/59 04/30/18 09:06 O2 Sat by Pulse Oximetry (%) 95 06/29/18 10:00 Constitutional: Yes: No Distress, Calm Neck: Yes: Supple Cardiovascular: Yes: Regular Rate and Rhythm Respiratory: Yes: Regular, Diminished Gastrointestinal: Yes: Normal Bowel Sounds, Soft Genitourinary: Yes: Coughlin Present Edema: No Labs: CBC, BMP 04/30/18 06:00 04/26/18 05:45 INR, PTT INR 1.14 (0.82-1.09) 04/29/18 06:30 Problem List - Problems (1) Acute urinary retention Code(s): R33.8 - OTHER RETENTION OF URINE (2) CKD (chronic kidney disease) Code(s): N18.9 - CHRONIC KIDNEY DISEASE, UNSPECIFIED Qualifiers: Chronic kidney disease stage: unspecified stage Qualified Code(s): N18.9 - Chronic kidney disease, unspecified (3) LORY (acute kidney injury) Code(s): N17.9 - ACUTE KIDNEY FAILURE, UNSPECIFIED (4) Atrial fibrillation by electrocardiography Code(s): I48.91 - UNSPECIFIED ATRIAL FIBRILLATION (5) CAD (coronary artery disease) Code(s): I25.10 - ATHSCL HEART DISEASE OF [place] CORONARY ARTERY W/O ANG PCTRS Qualifiers: Coronary Disease-Associated Artery/Lesion type: [place] artery [place] vs. transplanted heart: [place] heart Associated angina: without angina Qualified Code(s): I25.10 - Atherosclerotic heart disease of [place] coronary artery without angina pectoris (6) CVA (cerebral vascular accident) Code(s): I63.9 - CEREBRAL INFARCTION, UNSPECIFIED Qualifiers: CVA mechanism: embolism Precerebral and cerebral artery: middle cerebral artery Laterality of affected vessel: right Qualified Code(s): I63.411 - Cerebral infarction due to embolism of right middle cerebral artery (7) Cholelithiasis without obstruction Code(s): K80.20 - CALCULUS OF GALLBLADDER W/O CHOLECYSTITIS W/O OBSTRUCTION (8) 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 due to underlying condition with hyperglycemia Code(s): E08.65 - DIABETES DUE TO UNDERLYING CONDITION W HYPERGLYCEMIA Qualifiers: 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 ferry terminal supervisor insulin use: with ferry terminal supervisor use Qualified Code( s): E08.65 - 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 due to underlying condition with hyperglycemia; Z79.4 - USP (current) use of insulin (9) Coughlin catheter problem Code(s): T83.9XXA - UNSP COMPLICATION OF GENITOURINARY PROSTH DEV/GRFT, INIT Qualifiers: Encounter type: initial encounter Qualified Code(s): T83.9XXA - Unspecified complication of genitourinary prosthetic device, implant and graft, initial encounter (10) HTN (hypertension) Code(s): I10 - ESSENTIAL (PRIMARY) HYPERTENSION Qualifiers: Hypertension type: essential hypertension Qualified Code(s): I10 - Essential (primary) hypertension (11) History of cardiac radiofrequency ablation (RFA) Code(s): Z98.89 - OTHER SPECIFIED POSTPROCEDURAL STATES * DO NOT USE * (12) Hyperlipidemia Code(s): E78.5 - HYPERLIPIDEMIA, UNSPECIFIED Qualifiers: Hyperlipidemia type: mixed hyperlipidemia Qualified Code(s): E78.2 - Mixed hyperlipidemia (13) Obstructive sleep apnea of adult Code(s): G47.33 - OBSTRUCTIVE SLEEP APNEA (ADULT) (PEDIATRIC) (14) S/P coronary artery stent placement Code(s): Z95.5 - PRESENCE OF CORONARY ANGIOPLASTY IMPLANT AND GRAFT (15) Urinary retention Code(s): R33.9 - RETENTION OF URINE, UNSPECIFIED Assessment/Plan Echocardiography Nov 30, 2017 revealed normal LV size and function, bi-atrial dilatation, with mild MR Echocardiography dated 12/21/2015 normal LV size and function, with mild TR and VT MPI study dated 12/21/2015 revealed small-moderate size apical defect compatible with mild ischemia with preserved LV function 1. Lower complicated UTI (h/o ESBL UTI and nephrolithiasis requiring ureteral stent/nephrostomy tube 01/2017), UCx with yeast 2. POD#1 cystoscopy/TURP -> BPH with recurrent coughlin blockage 3. LORY on CKD stage II (baseline Cr 1.3-.1.5) likely from retention/UTI +/- hypovolumia, resolved 4. 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 Paroxysmal atrial fibrillation [id number] score of 6 on NOAC's - ? noncompliance vs. breakthrough neurologic event (NOAC failure) 6. CAD post multi-vessel PCI stent angina pectoris, with evidence of demand ischemic injury, stable on medical therapy 7. Diastolic LV dysfunction with chronic class I NYHA classification LV failure , compensated/euvolemic 8. HTN 9. DM 10. Hyperlipidemia 11. History of KATJA 12. Anemia Plan: 1. Resume coumadin 7.5 qd per INR as post-op hemostasis achieved 2. Continue Lopressor 25 bid as hemodynamics permit 3. Continue Amlodipine 2.5 qd 4. Continue Cozaar 50 qd with close mentoring of renal function, hemodynamics permitting 5. Continue Imdur 30 qd 6. Continue Ranexa 500 bid 7. Continue Lopid 600 bid and Welchol 625 bid 8. PT, GI prophylaxis, coughlin
--- NOTE | 2018-04-30 12:56 | PN ---
Teaching Attending Note Name of Resident: Yung Damon ATTENDING PHYSICIAN STATEMENT I saw and evaluated the patient. I reviewed the resident's note and discussed the case with the resident. I agree with the resident's findings and plan as documented. SUBJECTIVE:asymptomatic. urine draining clear. no CP, SOB, fever, chills, bleeding OBJECTIVE: Last Vital Signs Temp Pulse Resp BP Pulse Ox 98.4 F 79 18 120/59 95 04/30/18 09:06 04/30/18 09:06 04/30/18 09:06 04/30/18 09:06 04/30/18 10:00 General NAD Abdomen soft, NT/ND obese ASSESSMENT AND PLAN: 72 yo M with PMHx of HTN, hyperlipidemia, diabetes, atrial flutter, AFIB (on coumadin), CAD (s/p stent), past TIAs, BPH, CKD, diverticulosis, and chronic hip pain (3X broken hip) admitted with lower complicated UTI, hyperglycemia, and inability to care for at home. 1. Lower complicated UTI (H/o ESBL UTI and nephrolithiasis requiring ureteral stent and nephrostomy tube 01/2017)- clinically improved. UCx showing yeast. now completed antifungal therapy. ID and urology on board 2. LORY on CKD stage II (baseline 1.3-1.5) likely from retention/UTI +/- hypovolumia- now resolved. 3. Hyperglycemia-improved. cont current management. titrate as needed.. 4. urinary retention- likely due to UTI and BPH. s/p TURP 04/29. urine draining clear urine. Hgb clear. to mantain coughlin which is to be removed on urology outpatient follow up 5. subtherapeutic INR-due to noncompliance. can re-start coumadin 6mg today. will need INR check on thursday. titrate to optimize dose. 6. Calf pain- now resolved. duplex neg for DVT 7. hypomagnesemia- resolved 8. CAD- re-start ASA tomorrow 9. diastolic CHF- no signs of heart failure 10. BPH 11. DVT ppx- SCD. pharmacologic on hold from surgery 12. d/c home
--- NOTE | 2018-04-30 15:54 | DS ---
Physical Exam: SUBJECTIVE: Patient seen and examined at bedside. States that his abdominal pain is gone. Coughlin is draining clear urine well. OBJECTIVE: Vital Signs Period Temp Pulse Resp BP Sys/Crawford Pulse Ox Last 24 Hr 97.4 F-98.4 F 70-79 18-18 120-153/59-70 95-100 PHYSICAL EXAM Gen: Nad HEENT: NCAT, EOMI Neck: supple no jvd Cardio: irregular, distant s1s2, no mrg Pulm: lungs cta b/l Abd: soft, no tenderness to palpation Ext: 2+ pulses b/l LABS Laboratory Results - last 24 hr 04/29/18 04/29/18 04/30/18 16:10 20:58 06:00 WBC RBC Hgb Hct MCV MCH MCHC RDW Plt Count MPV Absolute Neuts (auto) Neutrophils % Lymphocytes % Monocytes % Eosinophils % Basophils % Nucleated RBC % PTT (Actin FS) 34.1 POC Glucometer 230 219 04/30/18 04/30/18 04/30/18 06:00 06:33 11:48 WBC 8.3 RBC 4.30 Hgb 13.4 Hct 39.8 MCV 92.6 MCH 31.1 MCHC 33.6 RDW 14.2 Plt Count 329 MPV 9.0 Absolute Neuts (auto) 4.8 Neutrophils % 58.1 D Lymphocytes % 29.2 D Monocytes % 8.4 Eosinophils % 3.7 Basophils % 0.6 Nucleated RBC % 0 PTT (Actin FS) POC Glucometer 183 218 HOSPITAL COURSE: Date of Admission:04/10/18 Date of Discharge: 04/30/18 Pt is a 72 y/o M with PMH AF and BPH who presents to ED with urinary retention, dysuria. Pt found to have UTI and LORY. Initially, pt had UA significant for LE 3, WBC 1848, isabella 190 on admission. This was felt to be likely 2/2 retention. Pt had no leukocytosis, but was given rocephin in ED. UCx pos for fungal infection and was given a course of fluconazole. Pt had a known retention 2/2 BPH exacerbated by med noncompliance. Initially straight cath yielded approx 300 cc. Pt was kept on Flomax. Urology consulted in ED. Initial plan was to have pt follow up out pt, however, because the patient had abdominal pain, he was kept in the hospital. His coughlin was repositioned several times, and the TURP was done as an inpatient. Pt's pAfib was treated with Heparin and coumadin. INR was subtherapeutic on admission, so the patient was put on Heparin. Coumadin was held for the procedure and was resumed on discharged. Pt had known history of DM. He was treated with sliding scale inpatient. Pt had LORY on admission, which had a contribution from his retention. It resolved with relieved and resolved. Pt stable for dc home. Minutes to complete discharge: 30 <Yung Damon - Last Filed: 04/30/18 16:25> Physical Exam: family appealed discharge.lost appeal and pt was picked up by family on 05/01/18 <Deb Krishnan - Last Filed: 05/02/18 12:51> Discharge Summary Reason For Visit: ACUTE RETENTION OF URINE, UTI Current Active Problems Acute urinary retention (Acute) CKD (chronic kidney disease) (Acute) Colonization with multidrug-resistant bacteria (Acute) Denial about severity of illness (Acute) Hypomagnesemia (Acute) Pre-operative cardiovascular examination (Acute) UTI (urinary tract infection) (Acute) - Home Medications Comprehensive Discharge Medication List: Ambulatory Orders Aspirin [ASA -] 81 mg PO DAILY #30 tab.chew 04/19/18 Gemfibrozil [Lopid -] 600 mg PO BID@0700,1630 #60 tablet 04/19/18 Insulin (Levemir) [Levemir Vial] 20 units SQ BIDI #1 vial 04/19/18 Isosorbide Mononitrate [Imdur -] 30 mg PO DAILY #30 tab.sr.24h 04/19/18 Metoprolol Tartrate [Lopressor -] 25 mg PO BID #60 tablet 04/19/18 Ranitidine [Zantac -] 150 mg PO DAILY #30 tablet 04/19/18 Ranolazine [Ranexa -] 500 mg PO BID #60 tab 04/19/18 Tamsulosin HCl [Flomax -] 0.4 mg PO DAILY@0830 #30 cap.er.24h 04/19/18 Warfarin Na [Coumadin -] 6 mg PO DAILY@1800 #15 tablet 04/19/18 <Yung Damon - Last Filed: 04/30/18 16:25> - Home Medications Comprehensive Discharge Medication List: Ambulatory Orders Aspirin [ASA -] 81 mg PO DAILY #30 tab.chew 04/19/18 Gemfibrozil [Lopid -] 600 mg PO BID@0700,1630 #60 tablet 04/19/18 Insulin (Levemir) [Levemir Vial] 20 units SQ BIDI #1 vial 04/19/18 Isosorbide Mononitrate [Imdur -] 30 mg PO DAILY #30 tab.sr.24h 04/19/18 Metoprolol Tartrate [Lopressor -] 25 mg PO BID #60 tablet 04/19/18 Ranitidine [Zantac -] 150 mg PO DAILY #30 tablet 04/19/18 Ranolazine [Ranexa -] 500 mg PO BID #60 tab 04/19/18 Tamsulosin HCl [Flomax -] 0.4 mg PO DAILY@0830 #30 cap.er.24h 04/19/18 Warfarin Na [Coumadin -] 6 mg PO DAILY@1800 #15 tablet 04/19/18 Syringe and Needle,Insulin,1Ml [Easy-Touch Insulin Syringe] 1 each [facility] #120 disp.syrin 05/01/18 <Deb Krishnan - Last Filed: 05/02/18 12:51> Condition: Good - Instructions Diet, Activity, Other Instructions: You were in the hospital for urinary infection, urinary retention, and because you were not taking your medications properly. Follow a diabetic diet. Continue with your insulin. check your sugars before each meal and prior to bedtime. Document your readings and bring them with you to your doctors office so your insulin can be adjusted as needed. It is very important that your follow up with your doctor within 2 days to get your INR checked. You INR was too low when you came in to the hospital. You also need to follow up on your blood sugar levels. Your blood sugar was very elevated when you came to the hospital. It is important that you monitor it closely while on antifungals as this can intefere with your coumadin levels. You need to follow up with your Urologist, as well. You are being sent home with a urinary catheter, which will need to be monitored and maintained. You need to speak to the urologist about when to take the catheter out. You need to follow up with the Urologist in 2 days. Follow up with your primary care doctor in 2 days for INR check. THIS IS VERY IMPORTANT. Take medications as instructed Return to the hospital if you develop worsening symptoms or uncontrolled bleeding Referrals: Daniel Edmondson MD [Staff Physician] - 1 Week Disposition: HOME This patient is new to me today: No Emergency Visit: No Critical Care patient: No - Discharge Referral Referred to [facility] No <Yung Damon - Last Filed: 04/30/18 16:25>
[2018-04-30] MEDS ORDERED: WARFARIN NA 7.5 MG TABLET (FP) PO SCH (18:00)
[2018-04-30] MEDS ORDERED: WARFARIN NA 3 MG TABLET PO SCH (18:00)
[2018-04-30] MEDS ORDERED: diphenhydrAMINE HCL 25 MG CAPSULE (FP) PO ONE (22:15)
[2018-05-01] MEDS: INSULIN SLIDING SCALE (NOVOLOG) 1 VIAL SQ SCH ×2 (06:53→12:09)
[2018-05-01] MEDS: GEMFIBROZIL 600 MG TABLET (FP) PO SCH (06:53)
[2018-05-01] MEDS: INSULIN (LEVEMIR) 100 UNITS/ML UNITS SQ SCH (06:53)
[2018-05-01] MEDS: TAMSULOSIN HCL 0.4 MG CAP.ER.24H (FP) PO SCH (09:11)
[2018-05-01] MEDS: RANITIDINE HCL 150 MG TABLET (FP) PO SCH (09:11)
[2018-05-01] MEDS: RANOLAZINE E.R. 500 MG TABLET (FP) PO SCH (09:11)
[2018-05-01] MEDS: METOPROLOL TARTRATE 25 MG TABLET (FP) PO SCH (09:11)
[2018-05-01] MEDS: amLODIPine BESYLATE 2.5 MG TABLET (FP) PO SCH (09:11)
[2018-05-01] MEDS: ISOSORBIDE MONONITRATE 30 MG TAB.SR.24H (FP) PO SCH (09:11)
[2018-05-01 09:16] VITALS: BP 110/63; PULSE 83; TEMP 98.2
--- NOTE | 2018-05-01 12:40 | PN ---
Progress Note, Physician History of Present Illness: POD#2 cysto/TURP with hematuria clearing. - Current Medication List Current Medications: Active Medications Acetaminophen (Tylenol -) 650 mg PO Q4H PRN PRN Reason: PAIN LEVEL 1-5 Al Hydroxide/Mg Hydroxide (Mylanta Oral Suspension -) 30 ml PO Q6H PRN PRN Reason: DYSPEPSIA Amlodipine Besylate (Norvasc -) 2.5 mg PO DAILY [facility] Last Admin: 05/01/18 09:11 Dose: 2.5 mg Benzocaine/Menthol (Cepacol Lozenge -) 1 each MM PRN PRN PRN Reason: SORE THROAT Gemfibrozil (Lopid -) 600 mg PO BID@0700,1630 [facility] Last Admin: 05/01/18 06:53 Dose: 600 mg Insulin Aspart (Novolog Vial Sliding Scale -) 1 vial SQ [facility]; Protocol Last Admin: 05/01/18 12:09 Dose: 4 unit Insulin Detemir (Levemir Vial) 20 units SQ BIDI [facility] Last Admin: 05/01/18 06:53 Dose: 20 unit Isosorbide Mononitrate (Imdur -) 30 mg PO DAILY [facility] Last Admin: 05/01/18 09:11 Dose: 30 mg Metoprolol Tartrate (Lopressor -) 25 mg PO BID [facility] Last Admin: 05/01/18 09:11 Dose: 25 mg Ranitidine HCl (Zantac -) 150 mg PO DAILY [facility] Last Admin: 05/01/18 09:11 Dose: 150 mg Ranolazine (Ranexa -) 500 mg PO BID [facility] Last Admin: 05/01/18 09:11 Dose: 500 mg Tamsulosin HCl (Flomax -) 0.4 mg PO DAILY@0830 [facility] Last Admin: 05/01/18 09:11 Dose: 0.4 mg Warfarin Sodium (Coumadin -) 6 mg PO DAILY@1800 [facility] Last Admin: 04/30/18 17:00 Dose: 6 mg - Objective Vital Signs: Vital Signs Temperature 98.2 F 05/01/18 09:15 Pulse Rate 83 05/01/18 09:15 Respiratory Rate 18 05/01/18 09:15 Blood Pressure 110/63 05/01/18 09:15 O2 Sat by Pulse Oximetry (%) 97 05/01/18 09:00 Constitutional: Yes: No Distress, Calm Neck: Yes: Supple Cardiovascular: Yes: Regular Rate and Rhythm Respiratory: Yes: Regular, Diminished Gastrointestinal: Yes: Normal Bowel Sounds, Soft Edema: No Labs: CBC, BMP 04/30/18 06:00 04/26/18 05:45 INR, PTT INR 1.14 (0.82-1.09) 04/29/18 06:30 Problem List - Problems (1) Acute urinary retention Code(s): R33.8 - OTHER RETENTION OF URINE (2) CKD (chronic kidney disease) Code(s): N18.9 - CHRONIC KIDNEY DISEASE, UNSPECIFIED Qualifiers: Chronic kidney disease stage: unspecified stage Qualified Code(s): N18.9 - Chronic kidney disease, unspecified (3) LORY (acute kidney injury) Code(s): N17.9 - ACUTE KIDNEY FAILURE, UNSPECIFIED (4) Atrial fibrillation by electrocardiography Code(s): I48.91 - UNSPECIFIED ATRIAL FIBRILLATION (5) CAD (coronary artery disease) Code(s): I25.10 - ATHSCL HEART DISEASE OF [place] CORONARY ARTERY W/O ANG PCTRS Qualifiers: Coronary Disease-Associated Artery/Lesion type: [place] artery [place] vs. transplanted heart: [place] heart Associated angina: without angina Qualified Code(s): I25.10 - Atherosclerotic heart disease of [place] coronary artery without angina pectoris (6) CVA (cerebral vascular accident) Code(s): I63.9 - CEREBRAL INFARCTION, UNSPECIFIED Qualifiers: CVA mechanism: embolism Precerebral and cerebral artery: middle cerebral artery Laterality of affected vessel: right Qualified Code(s): I63.411 - Cerebral infarction due to embolism of right middle cerebral artery (7) Cholelithiasis without obstruction Code(s): K80.20 - CALCULUS OF GALLBLADDER W/O CHOLECYSTITIS W/O OBSTRUCTION (8) 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 due to underlying condition with hyperglycemia Code(s): E08.65 - DIABETES DUE TO UNDERLYING CONDITION W HYPERGLYCEMIA Qualifiers: 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 terminal makeup operator insulin use: with terminal makeup operator use Qualified Code( s): E08.65 - 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 due to underlying condition with hyperglycemia; Z79.4 - prison (current) use of insulin (9) Coughlin catheter problem Code(s): T83.9XXA - UNSP COMPLICATION OF GENITOURINARY PROSTH DEV/GRFT, INIT Qualifiers: Encounter type: initial encounter Qualified Code(s): T83.9XXA - Unspecified complication of genitourinary prosthetic device, implant and graft, initial encounter (10) HTN (hypertension) Code(s): I10 - ESSENTIAL (PRIMARY) HYPERTENSION Qualifiers: Hypertension type: essential hypertension Qualified Code(s): I10 - Essential (primary) hypertension (11) History of cardiac radiofrequency ablation (RFA) Code(s): Z98.89 - OTHER SPECIFIED POSTPROCEDURAL STATES * DO NOT USE * (12) Hyperlipidemia Code(s): E78.5 - HYPERLIPIDEMIA, UNSPECIFIED Qualifiers: Hyperlipidemia type: mixed hyperlipidemia Qualified Code(s): E78.2 - Mixed hyperlipidemia (13) Obstructive sleep apnea of adult Code(s): G47.33 - OBSTRUCTIVE SLEEP APNEA (ADULT) (PEDIATRIC) (14) S/P coronary artery stent placement Code(s): Z95.5 - PRESENCE OF CORONARY ANGIOPLASTY IMPLANT AND GRAFT (15) Urinary retention Code(s): R33.9 - RETENTION OF URINE, UNSPECIFIED Assessment/Plan Echocardiography Nov 30, 2017 revealed normal LV size and function, bi-atrial dilatation, with mild MR Echocardiography dated 12/21/2015 normal LV size and function, with mild TR and CO MPI study dated 12/21/2015 revealed small-moderate size apical defect compatible with mild ischemia with preserved LV function 1. Lower complicated UTI (h/o ESBL UTI and nephrolithiasis requiring ureteral stent/nephrostomy tube 01/2017), UCx with yeast 2. POD#1 cystoscopy/TURP -> BPH with recurrent coughlin blockage 3. LORY on CKD stage II (baseline Cr 1.3-.1.5) likely from retention/UTI +/- hypovolumia, resolved 4. 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 Paroxysmal atrial fibrillation [id number] score of 6 on NOAC's - ? noncompliance vs. breakthrough neurologic event (NOAC failure) 6. CAD post multi-vessel PCI stent angina pectoris, with evidence of demand ischemic injury, stable on medical therapy 7. Diastolic LV dysfunction with chronic class I NYHA classification LV failure , compensated/euvolemic 8. HTN 9. DM 10. Hyperlipidemia 11. History of KATJA 12. Anemia Plan: 1. Continue coumadin 7.5 qd per INR 2. Continue Lopressor 25 bid as hemodynamics permit 3. Continue Amlodipine 2.5 qd 4. Continue Cozaar 50 qd with close mentoring of renal function, hemodynamics permitting 5. Continue Imdur 30 qd 6. Continue Ranexa 500 bid 7. Continue Lopid 600 bid and Welchol 625 bid 8. D/c planningced
--- NOTE | 2018-05-03 10:48 | PATH ---
Surgical Pathology Report Patient Name: PIPPA CARROLL [facility]. Rec. #: [id number] /Age/Gender: 1945 (Age: 72) / M Account: [id number] Location: [facility] Taken: 04/29/2018 Received: 04/29/2018 Reported: 05/03/2018 Physicians: Reed Melchor M.D. Specimen(s) Received PROSTATE TISSUE Clinical History Acute urinary retention, UTI Final Diagnosis PROSTATE TISSUE, TRANSURETHRAL RESECTION OF THE PROSTATE: PROSTATE TISSUE SHOWING GLANDULAR AND STROMAL HYPERPLASIA WITH ACUTE AND CHRONIC PROSTATITIS. Electronically Signed Chantel Olviares M.D. Gross Description Received in formalin labeled "prostate tissue," is a 3 g, 4.5 x 4.0 x 0.3 cm aggregate of multiple graves, firm to rubbery portions of tissue, consistent with prostate tissue. The specimen is entirely submitted in 4 cassettes. /04/29/2018 saudi04/29/2018
== END 2018-05-01 14:36 | disposition home or self-care (01) | DRG 952 ==
LOC: JER 19:31 → JERBED 22:59 → J4S 04-11 05:30
PROVIDERS: ADMIT Internal Medicine; ATTEND Internal Medicine
PROC: 0T9B70Z Drainage of Bladder with Drainage Device, Via Natural or Artificial Opening (ICD-10-PCS; 2018-04-10)
PROC: 0VT08ZZ Resection of Prostate, Via Natural or Artificial Opening Endoscopic (ICD-10-PCS; principal; 2018-04-29 09:30)
PROC: 0V508ZZ Destruction of Prostate, Via Natural or Artificial Opening Endoscopic (ICD-10-PCS; 2018-04-29 09:30)
DX: N17.9 Acute kidney failure, unspecified (principal); G47.33 Obstructive sleep apnea (adult) (pediatric); B37.49 Other urogenital candidiasis; D68.8 Other specified coagulation defects; I13.0 Hypertensive heart and chronic kidney disease with heart failure and stage 1 through stage 4 chronic kidney disease, or unspecified chronic kidney disease; E11.65 Type 2 diabetes mellitus with hyperglycemia; I50.32 Chronic diastolic (congestive) heart failure; E11.22 Type 2 diabetes mellitus with diabetic chronic kidney disease; I69.351 Hemiplegia and hemiparesis following cerebral infarction affecting right dominant side; I48.92 Unspecified atrial flutter; E83.42 Hypomagnesemia; R00.1 Bradycardia, unspecified; T83.098A Other mechanical complication of other urinary catheter, initial encounter; T83.091A Other mechanical complication of indwelling urethral catheter, initial encounter; Y84.6 Urinary catheterization as the cause of abnormal reaction of the patient, or of later complication, without mention of misadventure at the time of the procedure; N40.1 Benign prostatic hyperplasia with lower urinary tract symptoms; R33.8 Other retention of urine; E78.5 Hyperlipidemia, unspecified; I25.10 Atherosclerotic heart disease of native coronary artery without angina pectoris; Z95.5 Presence of coronary angioplasty implant and graft; I12.9 Hypertensive chronic kidney disease with stage 1 through stage 4 chronic kidney disease, or unspecified chronic kidney disease; N18.9 Chronic kidney disease, unspecified; Z87.891 Personal history of nicotine dependence; E03.9 Hypothyroidism, unspecified; Z96.642 Presence of left artificial hip joint; Z91.14 Patient's other noncompliance with medication regimen; Z79.01 Long term (current) use of anticoagulants; G89.29 Other chronic pain; M25.552 Pain in left hip; N18.2 Chronic kidney disease, stage 2 (mild); Z79.4 Long term (current) use of insulin; B96.29 Other Escherichia coli [E. coli] as the cause of diseases classified elsewhere; Z86.718 Personal history of other venous thrombosis and embolism
CPT/HCPCS: 36415; 71045-TC-FY; 74176-TC; 76775-TC; 76856-TC; 80048; 80053; 81003; 81015; 82009; 82962; 83735; 84100; 85025; 85027; 85610; 85730; 87086; 88305-TC; 93005; 93010; 93970-TC; 94760; 97116-GP; 97161-GP; 99281-25; J1644; J7030